=== PATIENT | female | born 1965 | race Caucasian/White ===

== ENCOUNTER 2020-03-14 06:28 | Outpatient (REF) | payer OTHER, SELFPAY ==
[2020-03-14 07:58] LABS: MANUAL DIFF FLAG NO
[2020-03-14 08:12] LABS: Basophils Absolute Auto 0.1 X10*3/uL (0.0-0.2); Basophils Percent Auto 0.7 % (0-2); Eosinophils Absolute Auto 0.2 X10*3/uL (0.0-0.4); Eosinophils Percent Auto 1.9 % (0-4); Hematocrit 39.1 % (37-47); Hemoglobin 12.5 g/dl (12.0-16.0); Imm Gran Abs Auto 0.02 X10*3/uL (0.00-0.03); Imm Gran Pct Auto 0.2 % (0.0-0.4); Lymphocytes Absolute Auto 2.9 X10*3/uL (1.2-4.9); Lymphocytes Percent Auto 22.2 % (20-40); Mean Corpuscular Hemoglobin 27.7 pg (27.0-33.0); Mean Corpuscular Volume 86.7 fL (80-98); Mean Platelet Volume 12.1 fL (9.4-12.3); Monocytes Absolute Auto 1.1 X10*3/uL (0.1-1.2); Monocytes Percent Auto 8.4 % (2-11); Neutrophils Absolute Auto 8.6 X10*3/uL (2.0-8.3); Neutrophils Percent Auto 66.6 % (45-73); Platelet Count 386 X10*3/uL (160-400); Red Blood Count 4.51 X10*6/uL (4.20-5.50); Red Cell Distribution Width 13.3 % (11.0-16.0); White Blood Count 12.8 X10*3/uL (4.8-10.8)
[2020-03-14 08:39] LABS: Estimated Average Glucose 237 mg/dL; Hemoglobin A1c % 9.9 %
[2020-03-14 08:57] LABS: Alanine Aminotransferase 14 U/L (0-31); Albumin Level 4.2 g/dL (3.5-5.0); Alkaline Phosphatase 96 U/L (39-117); Anion Gap 13 (12-20); Aspartate Amino Transferase 16 U/L (5-31); Bilirubin Total 0.3 mg/dL (0.0-1.0); Blood Urea Nitrogen 19 mg/dL (9-16); Calcium 9.3 mg/dL (8.4-10.2); Carbon Dioxide 27 mmol/L (22-29); Chloride 104 mmol/L (96-108); Cholesterol 196 mg/dL; Estimated Glomerular Filt Rate > 60; Glucose Fasting 128 mg/dL (60-99); HDL Cholesterol 44 mg/dL; LDL Cholesterol Calculated 127 mg/dl; Potassium 4.3 mmol/l (3.3-5.1); Sodium 140 mmol/L (135-145); Total Protein 7.3 g/dL (6.5-8.0); Triglycerides 127 mg/dL
[2020-03-14 09:09] LABS: Free T4 (Free Thyroxine) 1.73 ng/dL (0.71-1.85); Thyroid Stimulating Hormone 0.63 mIU/mL (0.32-4.0); Vitamin D 25-OH Total 29.6 ng/mL (>30)
== END 2020-03-14 06:29 | disposition home or self-care (01) ==
LOC: HO.LAB 06:28
PROVIDERS: PCP Internal Medicine; Referring Provider Nurse Practitioner Gerontology; Visit Provider Nurse Practitioner Family
DX: E11.42 Type 2 diabetes mellitus with diabetic polyneuropathy (principal); E89.0 Postprocedural hypothyroidism; E55.9 Vitamin D deficiency, unspecified
CPT/HCPCS: 36415; 80053; 80061; 82306; 83036; 84439; 84443; 85025

== ENCOUNTER 2020-03-15 06:45 | Outpatient (REF) | payer OTHER, SELFPAY ==
[2020-03-16 10:50] LABS: Creatinine Urine 37.86 mg/dL
== END 2020-03-15 06:46 | disposition home or self-care (01) ==
LOC: HO.LNP 06:45
PROVIDERS: Visit Provider Nurse Practitioner Gerontology
DX: E11.42 Type 2 diabetes mellitus with diabetic polyneuropathy (principal); E89.0 Postprocedural hypothyroidism; E55.9 Vitamin D deficiency, unspecified
CPT/HCPCS: 82043

== ENCOUNTER → 2020-03-17 15:29 | Outpatient (BNVA) | payer OTHER, SELFPAY | PROVIDERS: PCP Internal Medicine; Referring Provider Internal Medicine; Visit Provider Nurse Practitioner Gerontology | DX: Z76.89 Persons encountering health services in other specified circumstances (principal) ==

== ENCOUNTER 2020-03-29 16:19 | Outpatient (REF) | payer OTHER, SELFPAY | END 2020-03-29 16:20 | disposition home or self-care (01) | LOC: HO.LAB 16:19 | PROVIDERS: PCP Internal Medicine; Visit Provider Internal Medicine | DX: Z20.828 Contact with and (suspected) exposure to other viral communicable diseases (principal) | CPT/HCPCS: C9803; U0003 ==

== ENCOUNTER → 2020-04-22 14:27 | Outpatient (BNVA) | payer OTHER, SELFPAY | PROVIDERS: PCP Internal Medicine; Referring Provider Internal Medicine; Visit Provider Nurse Practitioner Gerontology | DX: E11.65 Type 2 diabetes mellitus with hyperglycemia (principal); E11.42 Type 2 diabetes mellitus with diabetic polyneuropathy; E78.5 Hyperlipidemia, unspecified; E89.0 Postprocedural hypothyroidism; E55.9 Vitamin D deficiency, unspecified | CPT/HCPCS: 82947; 99212 ==

== ENCOUNTER → 2020-04-29 15:03 | Outpatient (REF) | payer OTHER, SELFPAY ==
--- NOTE | 2020-04-29 15:01 | CA_ITS ---
Transthoracic Echocardiogram Patient (Last, First, Middle): Mayela Brennan T Gender: Female Date of : 1965 Age: 55 Procedure Date: 04/29/2020 Procedure Type: Transthoracic Echocardiogram Location: OP Height: 157.48 cm Weight: 75.75 kg BSA: 1.77 m2 Heart Rate: bpm BP: 120 / 60 mmHg Director Of Exhibits: ALFRED Referring MD: Chuckie New MD Symptoms: I25.10 ASCD Study Quality: Fair ECG Rhythm: Sinus Conclusions: - The left ventricular systolic function is mildly decreased. The visually estimated ejection fraction is between 45-50%. Findings Left Ventricle Normal left ventricular cavity size. There is normal left ventricular wall thickness. The left ventricular systolic function is mildly decreased. The visually estimated ejection fraction is between 45-50%. There is mild global hypokinesis. Evidence suggests grade I (mild) diastolic dysfunction. Basal to mid anterior septum looks mildly hypokinetic in some views. Right Ventricle Normal right ventricular cavity size and systolic function. Atria The left atrium is normal in size. The right atrium is normal in size. Aortic Valve There is a normal trileaflet aortic valve. There is no aortic valve stenosis. There is no aortic valve regurgitation. Mitral Valve The mitral valve appears normal. There is trace mitral valve regurgitation. There is no mitral valve stenosis. Pulmonic Valve The pulmonic valve was not well visualized. Tricuspid Valve Normal tricuspid valve structure. There is trace tricuspid valve regurgitation. The pulmonary artery systolic pressure is normal. Great Vessels The aortic annulus, sinuses of valsalva, and asc aorta are normal in size. Venous The inferior vena cava is normal in size and collapses greater than 50% with inspiration. Pericardium/Pleural There is no evidence of pericardial effusion. Prior Study Comparison No significant change compared to prior study dated: 11/10/2014. Measurements 2D Linear Measurements IVSd: 0.92 0.6-0.9/0.6-1.0 cm LVIDd: 4.16 3.9-5.3/4.2-5.9 cm LVIDd Index: 2.35 2.4-3.2/2.2-3.1 cm/m2 LVIDs: 3.10 2.0-3.6 cm LVPWd: 0.92 0.7-1.1 cm Ao Root: 3.30 2.1-3.5 cm LA Diam: 3.80 2.7-3.8/3.0-4.0 cm LAIDs Index: 2.15 1.5-2.3 cm/m2 LV Mass: 148.65 67-162/88-224 g LV Mass Index: 83.98 43-95/49-115 g/m2 LVOT Diam: 2.20 3.0+(-)1.3 cm 2D Systolic Function EF 4C: 46.60 >55% EF 2C: 58.20 >55% EF BiP: 50.20 >55% Mitral Valve MV Pk E: 0.77 MV PK A: 0.89 MV Decel Time: 261.00 E/A: 0.90 E'Lateral: 7.40 E'Medial: 4.46 E/E' Med: 17.20 E/E' Lat: 10.40 Aortic Valve AoV Pk Javier: 1.21 AoV Mn Javier: 0.80 AoV VTI: 0.23 AoV Pk Grad: 6.00 Aov Mn Grad: 3.00 COLTON Cont.VTI: 3.43 LVOT LVOT Pk Javier: 1.06 LVOT Mn Javier: 0.70 LVOT VTI: 0.20 LVOT Pk Grad: 4.00 LVOT Mn Grad: 2.00 LVOT Diam: 2.20 LVOT Area: 3.80 Diastolic Function MV Pk E: 0.77 MV Pk A: 0.89 E/A: 0.90 E'Medial: 4.46 E/E' Med: 17.20 E' Laterial: 7.40 E/E' Lat: 10.40 Tricuspid Valve TR Pk Javier: 2.20 TR Pk Grad: 19.00 RA Press: 3.00 RVSP: 22.00 Great Vessels Aorta Ao Root-2D: 3.30 2.0-3.7 cm Ao Asc: 3.00 2.1-3.4 cm Ao Arch: 2.60 Updated in Other Vendor System with Status of Final Chuckie New MD electronically signed on 05/02/2020 11:14:20 AM with status of Final
== END ==
LOC: HO.CARD 15:03
PROVIDERS: Visit Provider Internal Medicine
DX: I25.10 Atherosclerotic heart disease of native coronary artery without angina pectoris (principal); I10 Essential (primary) hypertension; Z95.5 Presence of coronary angioplasty implant and graft
CPT/HCPCS: 93306

== ENCOUNTER → 2020-05-04 15:21 | Outpatient (BNVA) | payer OTHER, SELFPAY | PROVIDERS: PCP Internal Medicine; Visit Provider Internal Medicine | DX: I25.10 Atherosclerotic heart disease of native coronary artery without angina pectoris (principal); E11.65 Type 2 diabetes mellitus with hyperglycemia; I10 Essential (primary) hypertension; E78.5 Hyperlipidemia, unspecified | CPT/HCPCS: 93005; 99212 ==

== ENCOUNTER 2020-05-26 13:14 | Outpatient (REF) | payer OTHER, SELFPAY | END 2020-05-26 13:15 | disposition home or self-care (01) | LOC: HO.LAB 13:14 | PROVIDERS: PCP Internal Medicine; Visit Provider Internal Medicine | DX: Z20.828 Contact with and (suspected) exposure to other viral communicable diseases (principal) | CPT/HCPCS: 36415; C9803; U0003 ==

== ENCOUNTER 2020-06-10 08:04 | Outpatient (REF) | payer OTHER, SELFPAY ==
[2020-06-10 08:57] LABS: MANUAL DIFF FLAG NO
[2020-06-10 09:01] LABS: Basophils Absolute Auto 0.1 X10*3/uL (0.0-0.2); Basophils Percent Auto 0.9 % (0-2); Eosinophils Absolute Auto 0.2 X10*3/uL (0.0-0.4); Eosinophils Percent Auto 2.5 % (0-4); Hematocrit 41.4 % (37-47); Imm Gran Abs Auto 0.02 X10*3/uL (0.00-0.03); Imm Gran Pct Auto 0.2 % (0.0-0.4); Lymphocytes Absolute Auto 2.6 X10*3/uL (1.2-4.9); Lymphocytes Percent Auto 29.1 % (20-40); Mean Corpuscular HGB Conc 31.4 g/dl (31.0-35.0); Mean Corpuscular Hemoglobin 27.7 pg (27.0-33.0); Mean Corpuscular Volume 88.1 fL (80-98); Mean Platelet Volume 11.7 fL (9.4-12.3); Monocytes Absolute Auto 0.7 X10*3/uL (0.1-1.2); Monocytes Percent Auto 7.9 % (2-11); Neutrophils Absolute Auto 5.3 X10*3/uL (2.0-8.3); Neutrophils Percent Auto 59.4 % (45-73); Platelet Count 377 X10*3/uL (160-400); Red Cell Distribution Width 13.8 % (11.0-16.0); White Blood Count 8.9 X10*3/uL (4.8-10.8)
[2020-06-10 09:05] LABS: Appearance Urine CLOUDY; Color Urine STRAW; Glucose Urine UA NEG (NEG); Leukocyte Esterase Urine 1+ (NEG); Nitrite Urine NEG (NEG); PH 6.5 (5.0-8.0); UACC Culture Trigger YES; Urine Blood NEG (NEG); Urine Ketones NEG (NEG); Urine Protein TRACE MG/DL (NEG-TRACE)
[2020-06-10 09:12] LABS: Bacteria Urine 4+ /LPF; RBC Urine 0 /HPF (0); Squamous Epithelial Cell Urine TRACE /LPF; WBC Urine 30-49 /HPF (0-4)
[2020-06-10 09:25] LABS: Anion Gap 10 (12-20); Blood Urea Nitrogen 18 mg/dL (9-16); Calcium 9.3 mg/dL (8.4-10.2); Carbon Dioxide 29 mmol/L (22-29); Chloride 104 mmol/L (96-108); Estimated Glomerular Filt Rate > 60; Potassium 4.1 mmol/l (3.3-5.1); Sodium 139 mmol/L (135-145)
[2020-06-10 09:44] LABS: Creatinine Urine 68.45 mg/dL; Protein/Creatinine Ratio, Ur 0.47 (<0.2); Total Protein Urine Random 32 mg/dL (<12)
== END 2020-06-10 08:05 | disposition home or self-care (01) ==
LOC: HO.LAB 08:04
PROVIDERS: PCP Internal Medicine; Visit Provider Internal Medicine Hypertension Specialist
DX: I10 Essential (primary) hypertension (principal); E11.9 Type 2 diabetes mellitus without complications; E11.21 Type 2 diabetes mellitus with diabetic nephropathy; N20.0 Calculus of kidney
CPT/HCPCS: 36415; 80051; 81001; 81003; 82310; 82565; 84156; 84520; 85025; 87086; 87088; 87186

== ENCOUNTER 2020-06-10 15:57 | Outpatient (REF) | payer OTHER, SELFPAY | END 2020-06-10 15:58 | disposition home or self-care (01) | LOC: HO.LAB 15:57 | PROVIDERS: Visit Provider Internal Medicine | DX: Z20.822 Contact with and (suspected) exposure to COVID-19 (principal) | CPT/HCPCS: 36415; C9803; U0003 ==

== ENCOUNTER → 2020-07-25 15:08 | Outpatient (BNVA) | payer OTHER, SELFPAY | PROVIDERS: PCP Internal Medicine; Visit Provider Nurse Practitioner Gerontology | DX: E11.65 Type 2 diabetes mellitus with hyperglycemia (principal); E11.42 Type 2 diabetes mellitus with diabetic polyneuropathy; E78.5 Hyperlipidemia, unspecified; E89.0 Postprocedural hypothyroidism; E55.9 Vitamin D deficiency, unspecified; Z79.4 Long term (current) use of insulin; Z71.3 Dietary counseling and surveillance | CPT/HCPCS: 82947; 99212 ==

== ENCOUNTER 2020-08-02 09:06 | Outpatient (REF) | payer OTHER, SELFPAY | END 2020-08-02 09:07 | disposition home or self-care (01) | LOC: HO.LAB 09:06 | PROVIDERS: Visit Provider Internal Medicine | DX: Z20.822 Contact with and (suspected) exposure to COVID-19 (principal) | CPT/HCPCS: 36415; C9803; U0003; U0005 ==

== ENCOUNTER 2020-08-24 17:54 | Inpatient (IN) | payer OTHER, SELFPAY ==
[2020-08-24] VITALS (9 sets, daily range): BP systolic 130–173; BP diastolic 69–79; PULSE 74–106; RESP 16–20; TEMP 36.6–38.7; O2SAT 95–99; BMI 30.7
--- NOTE | ~2020-08-24 | XR_ITS ---
EXAMINATION: XR CHEST CLINICAL INFORMATION: Covid 19. COMPARISON: Multiple priors, most recent chest radiograph dated 08/18/2018. TECHNIQUE: Frontal view of the chest was obtained. FINDINGS: Hypoinflation of the lungs with minimal patchy bibasilar airspace opacities, left greater than right. Findings may represent atelectasis versus early infiltrates. No pleural effusion or pneumothorax. Stable cardiomediastinal silhouette. No acute osseous abnormality. XR/XR chest 1V IMPRESSION: Hypoinflation of the lungs with minimal patchy bibasilar airspace opacities which could represent atelectasis versus early infiltrates.
[2020-08-24 18:37] LABS: MANUAL DIFF FLAG NO
[2020-08-24 18:43] LABS: Basophils Absolute Auto 0.1 X10*3/uL (0.0-0.2); Basophils Percent Auto 0.5 % (0-2); Eosinophils Percent Auto 0.2 % (0-4); Glucose Urine UA 100 MG/DL (NEG); Hematocrit 41.3 % (37-47); Hemoglobin 13.3 g/dl (12.0-16.0); Imm Gran Abs Auto 0.05 X10*3/uL (0.00-0.03); Imm Gran Pct Auto 0.4 % (0.0-0.4); Leukocyte Esterase Urine TRACE (NEG); Lymphocytes Absolute Auto 1.7 X10*3/uL (1.2-4.9); Lymphocytes Percent Auto 12.9 % (20-40); Mean Corpuscular HGB Conc 32.2 g/dl (31.0-35.0); Mean Corpuscular Hemoglobin 26.9 pg (27.0-33.0); Mean Corpuscular Volume 83.6 fL (80-98); Monocytes Absolute Auto 1.3 X10*3/uL (0.1-1.2); Monocytes Percent Auto 9.8 % (2-11); Neutrophils Absolute Auto 9.9 X10*3/uL (2.0-8.3); Neutrophils Percent Auto 76.2 % (45-73); Nitrite Urine NEG (NEG); Platelet Count 381 X10*3/uL (160-400); Red Blood Count 4.94 X10*6/uL (4.20-5.50); Red Cell Distribution Width 12.6 % (11.0-16.0); UACC Culture Trigger YES; Urine Blood NEG (NEG); Urine Ketones NEG (NEG); Urine Protein TRACE MG/DL (NEG-TRACE)
[2020-08-24 18:46] LABS: Appearance Urine CLEAR; Color Urine STRAW
--- NOTE | 2020-08-24 19:02 | ED.FEMALEGU ---
HPI - Female Genitourinary General Chief complaint: Urogenital-Female Stated complaint: Fever/Flank pain Time Seen by Provider: 08/24/20 18:55 Source: patient Mode of arrival: ambulatory Limitations: no limitations History of Present Illness HPI Narrative: 55-year-old female came in with fever, chills, urinary frequency, dysuria, right flank pain, foul urine smell, patient is prone to urinary tract infection and kidney infection. Patient also received her 1st dose of COVID-19 vaccination yesterday. Related Data Home Medications Medication Instructions Recorded Confirmed blood sugar diagnostic #10 ea 04/22/20 07/25/20 metoprolol succinate 50 mg 50 mg PO DAILY 04/22/20 07/25/20 tablet,extended release 24 hr gabapentin 300 mg capsule 300 mg PO BEDTIME PRN cap 05/04/20 07/25/20 infusion set for insulin pump #10 ea 06/13/20 07/25/20 Previous Rx's Medication Instructions Recorded lancets 28 gauge #600 ea 02/19/20 metformin 500 mg tablet,extended 1,000 mg PO BID #120 tab 03/11/20 release 24 hr cholecalciferol (vitamin D3) 1,250 1,250 mcg PO QWEEK #4 tab 03/17/20 mcg (50,000 unit) tablet aspirin 81 mg tablet,delayed 81 mg PO DAILY #30 tab 03/24/20 release Diabetic #1 ea 04/22/20 ezetimibe 10 mg tablet 10 mg PO DAILY #90 tab 04/22/20 rosuvastatin 40 mg tablet 40 mg PO DAILY #90 tab 04/22/20 cholecalciferol (vitamin D3) 50 50 mcg PO DAILY #30 cap 05/15/20 mcg (2,000 unit) capsule levothyroxine 137 mcg tablet 137 mcg PO DAILY #90 tab 07/05/20 blood sugar diagnostic #100 ea 07/21/20 blood-glucose meter #1 ea 07/21/20 lancets 28 gauge #100 ea 07/21/20 flash glucose sensor #1 ea 07/25/20 valsartan 80 1 tab PO DAILY #30 tab 08/09/20 mg-hydrochlorothiazide 12.5 mg tablet insulin aspart U-100 100 unit/mL See Rx Instructions SUBCUT DAILY 08/18/20 subcutaneous solution #50 ml Allergies Allergy/AdvReac Type Severity Reaction Status Date / Time dulaglutide [From FERNYITY] Allergy Unknown DIARRHEA Verified 07/25/20 15:38 AND VOMITTING liraglutide [From VICTOZA] Allergy Unknown DIARRHEA Verified 07/25/20 15:38 AND VOMITTING, vomiting and diahrrea Review of Systems Review of Systems: All other systems are reviewed and are negative Constitutional: Reports as per HPI and Reports no additional constitutional complaints Eyes: Reports as per HPI and Reports no additional eye complaints Reports system reviewed and no additional complaints, except as documented Cardiovascular: Reports as per HPI and Reports no additional cardiovascular complaints Respiratory: Reports as per HPI and Reports no additional respiratory complaints Gastrointestinal: Reports as per HPI and Reports no additional gastrointestinal complaints Genitourinary: Reports no additional female genitourinary complaints Musculoskeletal: Reports no additional musculoskeletal complaints Skin/Breast: Reports system reviewed and no additional complaints, except as docu Psychiatric: Reports no additional psychiatric complaints Endocrine: Reports no additional endocrine complaints Hematologic/Lymphatic: Reports no additional hematologic/lymphatic complaints Allergic/Immunologic: Reports no additional allergic/immunologic complaints Reports system reviewed and no additional complaints, except as documented and Reports Abnormal speech present [facility] Past Medical History Medical History Arthritis Carpal tunnel syndrome Coronary artery disease Depression Essential hypertension History of Clostridium difficile infection Hypercholesterolemia Kidney stone Left navicular fracture of foot Postsurgical hypothyroidism Thyroid nodule Type 2 diabetes mellitus with diabetic polyneuropathy Type 2 diabetes mellitus with hyperglycemia Vitamin B12 deficiency Vitamin D deficiency Surgical History History of renal stent Hx of section Hx of myomectomy Hx of thyroidectomy Hx of toe surgery Hx of tonsillectomy Family History Family History Father DM (diabetes mellitus) Hypertension High cholesterol Spina bifida Kidney stone Mother DM (diabetes mellitus) Hypertension High cholesterol CAD (coronary artery disease) Social History Social History Household Members: Children Smoking Status: Never smoker Advance Directives: No Advance Directives Information Provided: Yes Physical Exam Vital Signs: Vital Signs: Last Vital Signs Temp 99.6 F 08/24/20 20:00 Pulse 74 08/24/20 19:43 Resp 16 08/24/20 19:43 BP 144/74 H 08/24/20 19:43 Pulse Ox 99 08/24/20 19:43 Body Mass Index 30.7 Vital signs have been reviewed as appeared to be correct. Blood pressure is elevated. Heart rate is tachycardia. Respiration rate normal. Temperature: Afebrile. Oxygen saturation normal. Appearance: Alert. Oriented X3. No acute distress. Head: Normal external exam. Normocephalic. Atraumatic. No [place] signs noted. No raccoon eyes noted Eyes: PERRLA. EOMI. Conjunctiva and sclera normal. Eyelids normal. ENT: TM's Normal. Pharynx normal. Uvula midline. Moist mucous membranes. No trismus noted. No drooling noted. No muffled voice noted. Neck: Normal inspection. Neck supple. FROM. No adenopathy. Thyroid Normal. No meningeal signs. No neck mass noted. CVS: Normal heart rate and rhythm. Heart sound normal. No murmurs noted. Pulses normal throughout. Respiratory: No respiratory distress. Painless inspiration. Breath sounds normal. No wheezes/rales/rhonchi noted. Chest nontender. No accessory muscle usage noted or decreased air movement noted. Abdomen: Soft and nontender. Bowel sounds normal in all 4 quadrants. No distention noted. No organomegaly noted. No visible injury noted. Back: Right CVA tenderness. Full range of motion noted. Skin: Skin warm and dry. Normal skin color. Normal skin turgor. No rashes/lesions/lacerations noted. Extremities: No lower extremity edema. Extremities exhibit normal range of motion. Extremities nontender. Neuro: Oriented X 3. No motor deficit. No sensory deficit. Reflexes normal. Course Course Course Narrative: Assessment and plan. Right pyelonephritis with SIRS criteria. Patient received IV fluid/ceftriaxone. Admit the patient. MDM - Female Genitourinary Lab Data Attestation: I reviewed the patient's lab results. Result diagrams: 08/24/20 18:32 08/24/20 18:32 Labs: Lab Results 08/24/20 08/24/20 08/24/20 Range/Units 18:32 18:32 18:32 WBC 13.0 H (4.8-10.8) X10*3/uL RBC 4.94 (4.20-5.50) X10*6/uL Hgb 13.3 (12.0-16.0) g/dl Hct 41.3 (37-47) % MCV 83.6 (80-98) fL MCH 26.9 L (27.0-33.0) pg MCHC 32.2 (31.0-35.0) g/dl RDW 12.6 (11.0-16.0) % Plt Count 381 (160-400) X10*3/uL MPV 11.0 (9.4-12.3) fL Immature Gran % (Auto) 0.4 (0.0-0.4) % Neut % (Auto) 76.2 H (45-73) % Lymph % (Auto) 12.9 L (20-40) % [place] % (Auto) 9.8 (2-11) % Eos % (Auto) 0.2 (0-4) % Baso % (Auto) 0.5 (0-2) % Lymph # (Auto) 1.7 (1.2-4.9) X10*3/uL [place] # (Auto) 1.3 H (0.1-1.2) X10*3/uL Eos # (Auto) 0.0 (0.0-0.4) X10*3/uL Baso # (Auto) 0.1 (0.0-0.2) X10*3/uL Abs Immat Gran (auto) 0.05 H (0.00-0.03) X10*3/uL Absolute Neuts (auto) 9.9 H (2.0-8.3) X10*3/uL Absolute Nucleated RBC 0.000 (0.0-0.012) X10*3/uL Nucleated RBC % (auto) 0.0 (0.0-0.2) /100WBC Hold Blue Top SEE NOTE Sodium 134 L (135-145) mmol/L Potassium 3.9 (3.3-5.1) mmol/L Chloride 98 (96-108) mmol/L Carbon Dioxide 25 (22-29) mmol/L Anion Gap 15 (12-20) BUN 15 (9-16) mg/dL Creatinine 1.16 (0.5-1.4) mg/dL Estim Creat Clear Calc 51.7 Estimated GFR 48 Random Glucose 318 H (60-115) mg/dL Lactic Acid (0.5-2.0) mmol/L Calcium 9.1 (8.4-10.2) mg/dL Urine Color Urine Appearance Urine pH (5.0-8.0) Ur Specific [place] (1.005-1.025) Urine Protein (NEG-TRACE) MG/DL Urine Glucose (UA) (NEG) MG/DL Urine Ketones (NEG) MG/DL Urine Blood (NEG) Urine Nitrite (NEG) Ur Leukocyte Esterase (NEG) Urine RBC (0) /HPF Urine WBC (0-4) /HPF Ur Squamous Epith Cells /LPF Urine Bacteria /LPF 08/24/20 08/24/20 Range/Units 18:32 19:20 WBC (4.8-10.8) X10*3/uL RBC (4.20-5.50) X10*6/uL Hgb (12.0-16.0) g/dl Hct (37-47) % MCV (80-98) fL MCH (27.0-33.0) pg MCHC (31.0-35.0) g/dl RDW (11.0-16.0) % Plt Count (160-400) X10*3/uL MPV (9.4-12.3) fL Immature Gran % (Auto) (0.0-0.4) % Neut % (Auto) (45-73) % Lymph % (Auto) (20-40) % [place] % (Auto) (2-11) % Eos % (Auto) (0-4) % Baso % (Auto) (0-2) % Lymph # (Auto) (1.2-4.9) X10*3/uL [place] # (Auto) (0.1-1.2) X10*3/uL Eos # (Auto) (0.0-0.4) X10*3/uL Baso # (Auto) (0.0-0.2) X10*3/uL Abs Immat Gran (auto) (0.00-0.03) X10*3/uL Absolute Neuts (auto) (2.0-8.3) X10*3/uL Absolute Nucleated RBC (0.0-0.012) X10*3/uL Nucleated RBC % (auto) (0.0-0.2) /100WBC Hold Blue Top Sodium (135-145) mmol/L Potassium (3.3-5.1) mmol/L Chloride (96-108) mmol/L Carbon Dioxide (22-29) mmol/L Anion Gap (12-20) BUN (9-16) mg/dL Creatinine (0.5-1.4) mg/dL Estim Creat Clear Calc Estimated GFR Random Glucose (60-115) mg/dL Lactic Acid 1.3 (0.5-2.0) mmol/L Calcium (8.4-10.2) mg/dL Urine Color STRAW Urine Appearance CLEAR Urine pH 7.0 (5.0-8.0) Ur Specific [place] 1.020 (1.005-1.025) Urine Protein TRACE (NEG-TRACE) MG/DL Urine Glucose (UA) 100 H (NEG) MG/DL Urine Ketones NEG (NEG) MG/DL Urine Blood NEG (NEG) Urine Nitrite NEG (NEG) Ur Leukocyte Esterase TRACE H (NEG) Urine RBC 0 (0) /HPF Urine WBC 5-9 H (0-4) /HPF Ur Squamous Epith Cells NONE /LPF Urine Bacteria 3+ /LPF Discharge Plan Discharge Clinical Impression: Pyelonephritis Patient Disposition: Admitted As Inpatient Prescriptions: No Action (DME) lancets [FreeStyle Lancets] 28 gauge misc See Rx Instructions .ROUTE .MEDSUPPLY Qty: 600 RF: 3 metformin 500 mg tablet extended release 24 hr 1,000 mg PO BID Qty: 120 RF: 0 cholecalciferol (vitamin D3) 1,250 mcg (50,000 unit) tablet 1,250 mcg PO QWEEK Qty: 4 RF: 3 aspirin [Adult Low Dose Aspirin] 81 mg tablet,delayed release (DR/EC) 81 mg PO DAILY Qty: 30 RF: 6 cholecalciferol (vitamin D3) [Vitamin D3] 50 mcg (2,000 unit) capsule 50 mcg PO DAILY Qty: 30 RF: 6 levothyroxine 137 mcg tablet 137 mcg PO DAILY Qty: 90 RF: 1 (DME) blood-glucose meter [FreeStyle Lite Meter] Kit See Rx Instructions .ROUTE .MEDSUPPLY Qty: 1 RF: 0 (DME) FreeStyle Lite Strips Strip See Rx Instructions .ROUTE .MEDSUPPLY Qty: 100 RF: 11 (DME) lancets [FreeStyle Lancets] 28 gauge misc See Rx Instructions .ROUTE .MEDSUPPLY Qty: 100 RF: 11 valsartan-hydrochlorothiazide 80-12.5 mg tablet 1 tab PO DAILY Qty: 30 RF: 1 insulin aspart U-100 [Novolog U-100 Insulin aspart] 100 unit/mL solution See Rx Instructions subcut DAILY Qty: 50 RF: 2 (DME) infusion set for insulin pump Infusion Set See Rx Instructions .ROUTE .MEDSUPPLY Qty: 10 RF: 0 (DME) FreeStyle Radha 2 Sensor Kit See Rx Instructions .ROUTE .MEDSUPPLY Qty: 1 RF: 11 (DME) FreeStyle Precision Yossi Strips Strip See Rx Instructions ea .ROUTE QID Qty: 10 RF: 0 metoprolol succinate 50 mg tablet extended release 24 hr 50 mg PO DAILY RF: 0 rosuvastatin 40 mg tablet 40 mg PO DAILY Qty: 90 RF: 1 ezetimibe 10 mg tablet 10 mg PO DAILY Qty: 90 RF: 1 (DME) Diabetic Diabetic shoes and 2 inserts See Rx Instructions .Route .MEDSUPPLY Qty: 1 RF: 0 gabapentin 300 mg capsule 300 mg PO BEDTIME PRNRF: 0
[2020-08-24 19:03] LABS: Bacteria Urine 3+ /LPF; RBC Urine 0 /HPF (0)
[2020-08-24 19:06] LABS: Anion Gap 15 (12-20); Blood Urea Nitrogen 15 mg/dL (9-16); Calcium 9.1 mg/dL (8.4-10.2); Carbon Dioxide 25 mmol/L (22-29); Chloride 98 mmol/L (96-108); Creatinine Clr Calc Pharmacy 51.7; Estimated Glomerular Filt Rate 48; Glucose Random 318 mg/dL (60-115); Potassium 3.9 mmol/L (3.3-5.1); Sodium 134 mmol/L (135-145)
[2020-08-24] MEDS: 0.9 % Sodium Chloride 1,000 ML 999 ML IVCONT (19:37)
[2020-08-24] MEDS: cefTRIAXone sodium 1 GM in 0.9 % Sodium Chloride 50 ML IV (19:41)
[2020-08-24 19:53] LABS: Lactic Acid 1.3 mmol/L (0.5-2.0)
--- NOTE | 2020-08-24 22:05 | PM.IMHP ---
History of Present Illness Date of Service: 08/24/20 Chief Complaint: flank pain This is a 55-year-old female past medical history of diabetes, hypothyroidism, HLD, depression, who presents to the hospital with complaints of fever, chills, urinary frequency, dysuria, and right flank pain with a foul smelling urine for the past 1 day., no shortness of breath, no headache or change in vision, no canis, numbness or tingling. No cough, no low appetite, no loss of smell or sense of taste. Received her COVID-19 vaccine yesterday. On arrival to the ED hemodynamically stable with a temperature of a 100.9?, heart rate of 102, blood pressure 173/79, satting 98% on room air. Labs are significant for WBC count of 13, hemoglobin of 13.3, sodium of 134, potassium of 3.9, glucose in the 300s , UA that is positive for leukocyte Estrace, WBC, COVID-19 positive Past medical history as prolonged confirm with patient Review of Systems Review of Systems: Yes all other systems are reviewed and are negative [facility] Medical History Arthritis Carpal tunnel syndrome Coronary artery disease Depression Essential hypertension History of Clostridium difficile infection Hypercholesterolemia Kidney stone Left navicular fracture of foot Postsurgical hypothyroidism Thyroid nodule Type 2 diabetes mellitus with diabetic polyneuropathy Type 2 diabetes mellitus with hyperglycemia Vitamin B12 deficiency Vitamin D deficiency Family History Father DM (diabetes mellitus) Hypertension High cholesterol Spina bifida Kidney stone Mother DM (diabetes mellitus) Hypertension High cholesterol CAD (coronary artery disease) Surgical History History of renal stent Hx of section Hx of myomectomy Hx of thyroidectomy Hx of toe surgery Hx of tonsillectomy Social History Household Members: Children Household Members Other:: daughter Housing: House Do you presently have visiting nurse or other home services: No Smoking Status: Never smoker Use of substances other than those prescribed or required for medical reasons: No Have you been hit, kicked, punched, or otherwise hurt by someone within the past year? If so, by whom?: No Do you feel safe in your current relationship?: No Current Relationship Is there a partner from a previous relationship who is making you feel unsafe now?: No Are you made to feel afraid or neglected: No Advance Directives: No Advance Directives Information Provided: Yes Do you have thoughts of harming others: None Do you have a plan to hurt others: No Plan Recently lost weight without trying: No service: No Current occupational status: employed Meds Allergies Allergy/AdvReac Type Severity Reaction Status Date / Time dulaglutide [From TRULICITY] Allergy Unknown DIARRHEA Verified 07/25/20 15:38 AND VOMITTING liraglutide [From VICTOZA] Allergy Unknown DIARRHEA Verified 07/25/20 15:38 AND VOMITTING, vomiting and diahrrea Home Medications Medication Instructions Recorded Confirmed Last Taken Type metoprolol succinate 50 mg 50 mg PO DAILY 04/22/20 07/25/20 Unknown History tablet,extended release 24 hr gabapentin 300 mg capsule 300 mg PO BEDTIME cap 05/04/20 07/25/20 Unknown History Physical Exam Vital Signs and Narrative: Vital Signs: Last Vital Signs Temp 99.6 F 08/24/20 20:00 Pulse 74 08/24/20 19:43 Resp 16 08/24/20 19:43 BP 144/74 H 08/24/20 19:43 Pulse Ox 99 08/24/20 19:43 Body Mass Index 30.7 Const: General: cooperative and no acute distress Orientation/consciousness: patient oriented x3 Eyes: General: appearance normal, both eyes and all related structures Resp: Effort & Inspection: normal respiratory effort and able to speak in complete sentences Auscultation: clear to auscultation bilaterally Cardio: Rate: regular rate Rhythm: regular rhythm GI: Palpation (GI): Soft to palpation Auscultation: normal bowel sounds : Other: Right cva tenderness Skin: General skin exam: no rashes or lesions noted Neuro: General: patient oriented x3 Cognition (Neuro): normal cognition Extrem: General: Yes normal to inspection and Yes no pedal edema Results Labs CBC and Chem 7: 08/25/20 04:39 08/25/20 04:39 Labs: Laboratory Results - last 24 hr 08/24/20 08/24/20 08/24/20 18:32 18:32 18:32 MCV 83.6 MCH 26.9 L MCHC 32.2 RDW 12.6 Plt Count 381 MPV 11.0 Immature Gran % (Auto) 0.4 Neut % (Auto) 76.2 H Lymph % (Auto) 12.9 L [place] % (Auto) 9.8 Eos % (Auto) 0.2 Baso % (Auto) 0.5 Lymph # (Auto) 1.7 [place] # (Auto) 1.3 H Eos # (Auto) 0.0 Baso # (Auto) 0.1 Abs Immat Gran (auto) 0.05 H Absolute Neuts (auto) 9.9 H Absolute Nucleated RBC 0.000 Nucleated RBC % (auto) 0.0 Hold Blue Top SEE NOTE Anion Gap 15 Estim Creat Clear Calc 51.7 Estimated GFR 48 Random Glucose 318 H Lactic Acid Calcium 9.1 Urine Color Urine Appearance Urine pH Ur Specific [place] Urine Protein Urine Glucose (UA) Urine Ketones Urine Blood Urine Nitrite Ur Leukocyte Esterase Urine RBC Urine WBC Ur Squamous Epith Cells Urine Bacteria 08/24/20 08/24/20 18:32 19:20 MCV MCH MCHC RDW Plt Count MPV Immature Gran % (Auto) Neut % (Auto) Lymph % (Auto) [place] % (Auto) Eos % (Auto) Baso % (Auto) Lymph # (Auto) [place] # (Auto) Eos # (Auto) Baso # (Auto) Abs Immat Gran (auto) Absolute Neuts (auto) Absolute Nucleated RBC Nucleated RBC % (auto) Hold Blue Top Anion Gap Estim Creat Clear Calc Estimated GFR Random Glucose Lactic Acid 1.3 Calcium Urine Color STRAW Urine Appearance CLEAR Urine pH 7.0 Ur Specific [place] 1.020 Urine Protein TRACE Urine Glucose (UA) 100 H Urine Ketones NEG Urine Blood NEG Urine Nitrite NEG Ur Leukocyte Esterase TRACE H Urine RBC 0 Urine WBC 5-9 H Ur Squamous Epith Cells NONE Urine Bacteria 3+ Assessment and Plan (1) Sepsis: Status: Acute (2) Pyelonephritis: Status: Acute (3) COVID-19 virus infection: Problem details: 08/08/2020 Status: Acute (4) UTI (urinary tract infection): Status: Acute 55-year-old female with past medical history of diabetes, hypertension, HLD who presents to the hospital with complaints of right flank pain found to have UTI as well as pyelonephritis and sepsis # sepsis - secondary to urinary tract infection/pyelonephritis - meets sepsis criteria with fever, leukocytosis, and tachycardia - will start on IV antibiotics - follow cultures - lactic acid normal # pyelonephritis - has CVA tenderness, leukocytosis, febrile - was started on IV antibiotics - follow urine and blood cultures # UTI - positive UA - management as above # COVID-19 infection - received 1st dose of vaccine day prior to presentation - has no shortness of breath, respiratory symptoms - no hypoxia - will obtain chest x-ray to rule out any infiltrate - monitor respiratory status # diabetes - will start her on low-dose sliding scale insulin - hold antihyperglycemic orals - diabetic diet # hypertension - patient is slightly hypotensive - will hold antihypertensives at this time DVT prophylaxis: Lovenox
--- NOTE | 2020-08-24 22:45 | PC.NURSE ---
pt just disclosed that she has a insulin pump that just ran out so she disconnected it. poc being obtained at this time. pt skin pink warm and dry. no s/s of hypo or hyper glycemia. poc [phone]
[2020-08-24 22:50] LABS: Glucose, Whole Blood 319 mg/dL (60-115)
--- NOTE | 2020-08-24 22:50 | MHC.CM.PN ---
CM met with pt who appears to be uncomfortable and c/o chills. Pt has fever. Pt is 999 status. admitted,but no room assignment yet. Pt tells CM that she has no medical equipment at home, but then tells CM that she has an insulin pump, but she shut it off because it's empty and she has no insulin with her. This CM reported this to pt's nurse, Rosey, who was not aware pt had an insulin pump. Will alert the provider. 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 HCP/son Kole Dominguez ([phone]) and alternate is Janeth Dominguez-daughter ([phone]). HCP is on file. D/C plan is home without services. Family to provide transportation. CM to follow for d/c needs.
[2020-08-24] MEDS: Morphine Sulfate 2 MG/ML CARTRIDGE 1 MG IVPUSH (22:54)
[2020-08-25] VITALS (8 sets, daily range): BP systolic 97–141; BP diastolic 55–69; PULSE 69–98; RESP 16–20; TEMP 36.1–37.4; O2SAT 93–96; BMI 30.9
[2020-08-25] MEDS: Enoxaparin Sodium 40 MG/0.4 ML SYRINGE SUBCUT (00:44)
[2020-08-25] MEDS: Acetaminophen 325 MG TABLET 650 MG PO ×2 (00:44→21:27)
[2020-08-25 00:55] LABS: Influenza A PCR NEGATIVE (Negative); Influenza B PCR NEGATIVE (Negative); Resp Syncy Virus RNA Qual PCR NEGATIVE (Negative)
[2020-08-25 01:00] LABS: Glucose, Whole Blood 336 mg/dL (60-115)
--- NOTE | 2020-08-25 01:01 | PC.NURSE ---
hospitalist called and poc reported. 336. pt insulin pump remains off and is removed.
[2020-08-25 01:07] LABS: SARS COV2 PCR INHOUSE POSITIVE (Negative)
[2020-08-25] MEDS: Insulin Regular, Human 100 UNIT/ML 3 ML VIAL SUBCUT (02:02)
[2020-08-25] MEDS: 0.9 % Sodium Chloride Flush 3 ML SYRINGE IVFLUSH (03:14)
[2020-08-25] MEDS: 0.9 % Sodium Chloride 1,000 ML 100 ML IVCONT (03:14)
[2020-08-25 04:54] LABS: MANUAL DIFF FLAG NO
[2020-08-25 04:56] LABS: Basophils Absolute Auto 0.1 X10*3/uL (0.0-0.2); Basophils Percent Auto 0.8 % (0-2); Eosinophils Percent Auto 0.1 % (0-4); Hemoglobin 12.4 g/dl (12.0-16.0); Imm Gran Abs Auto 0.02 X10*3/uL (0.00-0.03); Imm Gran Pct Auto 0.2 % (0.0-0.4); Lymphocytes Absolute Auto 2.1 X10*3/uL (1.2-4.9); Lymphocytes Percent Auto 24.9 % (20-40); Mean Corpuscular HGB Conc 32.6 g/dl (31.0-35.0); Mean Corpuscular Hemoglobin 27.5 pg (27.0-33.0); Mean Corpuscular Volume 84.3 fL (80-98); Mean Platelet Volume 11.3 fL (9.4-12.3); Monocytes Absolute Auto 1.1 X10*3/uL (0.1-1.2); Monocytes Percent Auto 12.5 % (2-11); Neutrophils Absolute Auto 5.2 X10*3/uL (2.0-8.3); Neutrophils Percent Auto 61.5 % (45-73); Platelet Count 341 X10*3/uL (160-400); Red Blood Count 4.51 X10*6/uL (4.20-5.50); Red Cell Distribution Width 12.7 % (11.0-16.0); White Blood Count 8.4 X10*3/uL (4.8-10.8)
[2020-08-25 05:22] LABS: Anion Gap 12 (12-20); Blood Urea Nitrogen 18 mg/dL (9-16); Calcium 8.6 mg/dL (8.4-10.2); Carbon Dioxide 25 mmol/L (22-29); Chloride 103 mmol/L (96-108); Creatinine Clr Calc Pharmacy 53.3; Estimated Glomerular Filt Rate 50; Glucose Random 324 mg/dL (60-115); Potassium 3.7 mmol/L (3.3-5.1); Sodium 136 mmol/L (135-145)
[2020-08-25] MEDS: Lactated Ringers 500 ML 1000 ML IVCONT (06:43)
[2020-08-25 07:49] LABS: Glucose, Whole Blood 291 mg/dL (60-115)
[2020-08-25] MEDS: Insulin Lispro 100 UNIT/ML 3 ML VIAL SUBCUT ×4 (08:17→20:59)
[2020-08-25 11:20] LABS: Glucose, Whole Blood 368 mg/dL (60-115)
--- NOTE | 2020-08-25 15:22 | P.PNIM_ITS ---
Subjective Subjective Date of Service: 08/25/20 Interval History: Patient complaining of dysuria, foul odor to urine, denies fever chills no other acute issues overnight, noted to have elevated blood sugars, insulin pump has been discontinued. ROS General no headache, no dizziness, no fever chills. CVS no chest pain, no palpitation. Respiratory no cough ,no sob. Gastrointestinal no nausea, no vomiting, no abdominal pain Physical Exam Vital Signs: Vital Signs: Last Vital Signs Temp 98.7 F 08/25/20 15:04 Pulse 69 08/25/20 15:04 Resp 20 08/25/20 15:04 BP 134/65 08/25/20 15:04 Pulse Ox 96 08/25/20 15:04 Body Mass Index 30.9 General patient resting comfortably in no acute distress. Neck supple no JVD. CVS regular rate rhythm, Respiratory lungs clear to auscultation, no respiratory distress, no wheeze, no rhonchi. Gastrointestinal abdomen soft, nontender, bowel sounds audible, no guarding , no rigidity. Extremities no edema. Neuro nonfocal , speech clear. Skin no rash Objective Data Current Medications Generic Name Dose Route Start Last Admin Trade Name Freq PRN Reason Stop Dose Admin Acetaminophen 650 mg 08/24/20 23:53 Acetaminophen 325 Mg Tablet PO Q6H PRN Pain, Mild (Pain Scale 1-3) Docusate Sodium 100 mg 08/24/20 23:53 Docusate Sodium 100 Mg Capsule PO DAILY PRN Constipation Enoxaparin Sodium 40 mg 08/25/20 00:00 08/25/20 00:44 Enoxaparin Sodium 40 Mg/0.4 Ml Syringe SUBCUT 40 mg Q24H SHASHI Administration Sodium Chloride 1,000 mls @ 100 mls/hr 08/24/20 23:53 08/25/20 11:09 Ns IVCONT Not Given .Q10H SHASHI Ceftriaxone Sodium 1 gm/ 50 mls @ 100 mls/hr 08/25/20 18:00 Sodium Chloride IV Q24H SHASHI Insulin Human Lispro 0 unit 08/25/20 07:30 08/25/20 11:51 Insulin Lispro 100 Unit/Ml 3 Ml Vial SUBCUT 12 unit QIDACHS SHASHI Administration Protocol Ondansetron HCl 4 mg 08/24/20 23:53 Ondansetron Hcl 4 Mg/2 Ml Vial IVPUSH Q8H PRN Nausea and Vomiting Pharmacy Consult 1 each 08/25/20 09:20 Consult Rx Perform Med Rec MISCELLANE ONCE PRN Consult order Sodium Chloride 3 ml 08/25/20 00:00 08/25/20 07:21 0.9 % Sodium Chloride Flush 3 Ml Syringe IVFLUSH Not Given QSHIFT SHASHI Labs CBC & Chem 7: 08/25/20 04:39 08/25/20 04:39 Microbiology Microbiology Results: Microbiology 08/24/20 18:47 Urine clean catch - Clean Catch Midstream Urine Culture - Preliminary Gram negative flavia Assessment and Plan (1) Sepsis: Status: Acute (2) Pyelonephritis: Status: Acute (3) COVID-19 virus infection: Problem details: 08/08/2020 Status: Acute Assessment and Plan: 55-year-old female with past medical history of diabetes, hypertension, HLD who presents to the hospital with complaints of right flank pain found to have UTI as well as pyelonephritis and sepsis # sepsis secondary to urinary tract infection/pyelonephritis - meets sepsis criteria with fever, leukocytosis, and tachycardia, normal lactic acid CVA tenderness resolved continue IV ceftriaxone urine culture growing Gram- negative flavia blood cultures are pending, continue supportive care DC IV fluid # COVID-19 infection - received 1st dose of vaccine day prior to presentation - has no shortness of breath, respiratory symptoms, no hypoxia, chest x-ray showed hypoinflation of lungs with minimal patchy by basilar airspace opacities, encourage incentive spirometry And frequent position change # diabetes - elevated blood sugars, placed on diabetic diet and adjust insulin sliding scale, at home uses insulin # hypertension had soft blood pressure on arrival now blood pressure improved continue to hold antihypertensive medication DC IV fluid DVT prophylaxis: Lovenox
[2020-08-25 16:27] LABS: Glucose, Whole Blood 289 mg/dL (60-115)
[2020-08-25] MEDS: cefTRIAXone sodium 1 GM in 0.9 % Sodium Chloride 50 ML IV (17:03)
--- NOTE | 2020-08-25 18:18 | PC.NURSE ---
Patient up ab [place], independent. Fluids d/c'd. Patient denies pain. Modified iss per hospitalist due to incr blood glucose. Diabetic diet in place. Patient very aware of her diabetic regimen, states that she counts her carbs, checks her sugar, then calculates how much insulin to self-administer. Patient cautious with high sugar drinks/foods. Patient denies any resp sx's related to pos COVID test.
[2020-08-25 20:32] LABS: Glucose, Whole Blood 293 mg/dL (60-115)
[2020-08-26] MEDS: 0.9 % Sodium Chloride Flush 3 ML SYRINGE IVFLUSH ×2 (00:10→08:12)
[2020-08-26] MEDS: Enoxaparin Sodium 40 MG/0.4 ML SYRINGE SUBCUT (00:46)
[2020-08-26 02:57] VITALS: BP 136/70; PULSE 72; RESP 18; TEMP 36.3; O2SAT 96
[2020-08-26] MEDS: Levothyroxine Sodium 112 MCG TABLET PO (06:04)
[2020-08-26] MEDS: Levothyroxine Sodium 25 MCG TABLET PO (06:04)
[2020-08-26 07:49] LABS: Glucose, Whole Blood 265 mg/dL (60-115)
[2020-08-26 07:50] VITALS: BP 140/69; PULSE 72; RESP 20; TEMP 36.8; O2SAT 92
[2020-08-26] MEDS: Valsartan 80 MG TABLET PO (08:11)
[2020-08-26] MEDS: hydroCHLOROthiazide 12.5 MG TABLET PO (08:11)
[2020-08-26] MEDS: Cholecalciferol (Vitamin D3) 25 MCG TABLET 50 MCG PO (08:11)
[2020-08-26] MEDS: Aspirin Enteric Coated 81 MG TABLET.DR PO (08:12)
[2020-08-26] MEDS: Metoprolol Succinate ER 50 MG TAB.ER.24H PO (08:12)
[2020-08-26] MEDS: Insulin Lispro 100 UNIT/ML 3 ML VIAL SUBCUT (08:12)
[2020-08-26] MEDS: Acetaminophen 325 MG TABLET 650 MG PO (08:23)
--- NOTE | 2020-08-26 10:21 | PM.DS ---
DS: Providers Provider Date of Service: 08/26/20 Date of admission: 08/24/20 22:04 Primary care physician: Dany Rubio MD DS: Diagnosis Discharge Diagnosis (1) Sepsis: Status: Acute (2) Pyelonephritis: Status: Acute (3) COVID-19 virus infection: Status: Acute Problem details: 08/08/2020 DS: Medications Discharge Medications Home Medications: Home Medications Medication Instructions Recorded Confirmed metoprolol succinate 50 mg 50 mg PO DAILY 04/22/20 08/25/20 tablet,extended release 24 hr gabapentin 300 mg capsule 300 mg PO BEDTIME PRN cap 05/04/20 08/25/20 cholecalciferol (vitamin D3) 1,250 mcg PO WE 08/25/20 08/25/20 ezetimibe 10 mg PO BEDTIME 08/25/20 08/25/20 rosuvastatin 40 mg PO BEDTIME 08/25/20 08/25/20 Previous Rx's Medication Instructions Recorded metformin 500 mg tablet,extended 1,000 mg PO BID #120 tab 03/11/20 release 24 hr aspirin 81 mg tablet,delayed 81 mg PO DAILY #30 tab 03/24/20 release cholecalciferol (vitamin D3) 50 50 mcg PO DAILY #30 cap 05/15/20 mcg (2,000 unit) capsule levothyroxine 137 mcg tablet 137 mcg PO DAILY #90 tab 07/05/20 valsartan 80 1 tab PO DAILY #30 tab 08/09/20 mg-hydrochlorothiazide 12.5 mg tablet insulin aspart U-100 100 unit/mL See Rx Instructions SUBCUT DAILY 08/18/20 subcutaneous solution #50 ml DS: Summary Hospital Course Hospital Course: History of presenting illness Chief Complaint: flank pain This is a 55-year-old female past medical history of diabetes, hypothyroidism, HLD, depression, who presents to the hospital with complaints of fever, chills, urinary frequency, dysuria, and right flank pain with a foul smelling urine for the past 1 day., no shortness of breath, no headache or change in vision, no canis, numbness or tingling. No cough, no low appetite, no loss of smell or sense of taste. Received her COVID-19 vaccine yesterday. On arrival to the ED hemodynamically stable with a temperature of a 100.9?, heart rate of 102, blood pressure 173/79, satting 98% on room air. Labs are significant for WBC count of 13, hemoglobin of 13.3, sodium of 134, potassium of 3.9, glucose in the 300s , UA that is positive for leukocyte Estrace, WBC, COVID-19 positive Hospital course 55-year-old female with past medical history of diabetes, hypertension, HLD who presents to the hospital with complaints of right flank pain found to have pyelonephritis and sepsis # sepsis secondary to acute pyelonephritis on admission patient had fever leukocytosis and tachycardia therefore met sepsis criteria, patient treated with IV ceftriaxone urine culture grew E coli ESBL negative blood cultures are negative since all symptoms of sepsis have resolved and patient feeling better with no urinary symptoms no fever chills she is being discharged home on by mouth Ceftin. # COVID-19 infection recently diagnosed to have COVID-19 patient chest x-ray showed hypoinflation of lungs, she has no hypoxia # diabetes patient noted to have elevated blood sugars she has been recommended diabetic diet and to resume insulin pump. # hypertension had soft blood pressures during hospitalization therefore blood pressure medications were held blood pressure is now trending up therefore recommend to resume home medication Time Spent with Patient Time attestation: Total time spent providing and/or coordinating discharge services: Discharge coordination time: Greater than 30 minutes Physical Exam Vital Signs: Vital Signs: Last Vital Signs Temp 98.2 F 08/26/20 07:50 Pulse 72 08/26/20 07:50 Resp 20 08/26/20 07:50 BP 140/69 H 08/26/20 07:50 Pulse Ox 92 08/26/20 07:50 Body Mass Index 30.9 General patient resting comfortably in no acute distress. Neck supple no JVD. CVS regular rate rhythm, Respiratory lungs clear to auscultation, no respiratory distress, no wheeze, no rhonchi. Gastrointestinal abdomen soft, nontender, bowel sounds audible, no guarding , no rigidity. No CVA tenderness Extremities no edema. Neuro nonfocal , speech clear. Skin no rash DS: Data Data Completed and Pending Labs on day of discharge: Laboratory Results - last 24 hr 08/25/20 08/25/20 08/25/20 11:12 16:19 20:19 POC Glucose 368 H* 289 H 293 H 08/26/20 07:45 POC Glucose 265 H Preliminary micro results at discharge 08/24/20 19:29 Blood Culture - Preliminary Blood - Venous No growth after 24 hours. 08/24/20 19:21 Blood Culture - Preliminary Blood - Venous No growth after 24 hours. Discharge Plan Discharge Patient Disposition: Home, Self-Care Referrals: Ramiro,Dany Grant MD [Primary Care Provider] - Discharge Medications: New cefuroxime axetil 500 mg tablet 500 mg PO Q12H 6 Days Qty: 12 RF: 0 Continued metformin 500 mg tablet extended release 24 hr 1,000 mg PO BID Qty: 120 RF: 0 aspirin [Adult Low Dose Aspirin] 81 mg tablet,delayed release (DR/EC) 81 mg PO DAILY Qty: 30 RF: 6 cholecalciferol (vitamin D3) [Vitamin D3] 50 mcg (2,000 unit) capsule 50 mcg PO DAILY Qty: 30 RF: 6 levothyroxine 137 mcg tablet 137 mcg PO DAILY Qty: 90 RF: 1 valsartan-hydrochlorothiazide 80-12.5 mg tablet 1 tab PO DAILY Qty: 30 RF: 1 insulin aspart U-100 [Novolog U-100 Insulin aspart] 100 unit/mL solution See Rx Instructions subcut DAILY Qty: 50 RF: 2 ezetimibe 10 mg tablet 10 mg PO BEDTIME RF: 0 rosuvastatin 40 mg tablet 40 mg PO BEDTIME RF: 0 cholecalciferol (vitamin D3) 1,250 mcg (50,000 unit) tablet 1,250 mcg PO WE RF: 0 metoprolol succinate 50 mg tablet extended release 24 hr 50 mg PO DAILY RF: 0 gabapentin 300 mg capsule 300 mg PO BEDTIME PRN (Reason: Pain) RF: 0 Discharge Orders: Discharge Order (Routine); Ordered 08/26/20 Ordered By: Db Medina Diet: diabetic diet and low fat, low cholesterol Activity on Discharge: As tolerated Stand Alone Forms: Patient Portal Discharge page Care Plan Goals: As above Health Concerns: Sepsis/pyelonephritis take Ceftin for 5 more days drink plenty of fluid / rest, return to check with recurrent fevers lightheadedness /dizziness. Plan of Treatment: Follow-up with primary care physician in 1 week Assessment: See discharge summary
--- NOTE | 2020-08-26 10:45 | MHC.CM.PN ---
Patient will be discharged home no services. Family will provide transport.
== END 2020-08-26 14:38 | disposition home or self-care (01) | DRG 720 ==
LOC: HO.ED 21:39 → HO.EDOVER 22:20 → HO.IMC 08-25 01:14
PROVIDERS: Admitting Provider Internal Medicine; Emergency Provider Emergency Medicine; PCP Internal Medicine; Visit Provider Hospitalist
DX: A41.9 Sepsis, unspecified organism (principal); U07.1 COVID-19; E11.42 Type 2 diabetes mellitus with diabetic polyneuropathy; E03.9 Hypothyroidism, unspecified; N12 Tubulo-interstitial nephritis, not specified as acute or chronic; Z96.41 Presence of insulin pump (external) (internal); Z79.4 Long term (current) use of insulin; Z79.82 Long term (current) use of aspirin; Z79.890 Hormone replacement therapy; Z79.899 Other long term (current) drug therapy
CPT/HCPCS: 0241U; 36415; 71045; 80048; 81001; 81003; 82947; 83605; 85025; 87040; 87086; 87088; 87186; 96365; 99285; J0696; J1650; J2270

== ENCOUNTER → 2020-09-26 15:10 | Outpatient (BNVA) | payer OTHER, SELFPAY | PROVIDERS: PCP Internal Medicine; Visit Provider Nurse Practitioner Gerontology | DX: E11.65 Type 2 diabetes mellitus with hyperglycemia (principal); E11.42 Type 2 diabetes mellitus with diabetic polyneuropathy; E89.0 Postprocedural hypothyroidism; E55.9 Vitamin D deficiency, unspecified | CPT/HCPCS: 82947; 99212 ==

== ENCOUNTER 2020-09-27 16:06 | Outpatient (REF) | payer OTHER, SELFPAY ==
--- NOTE | ~2020-09-27 | MM_ITS ---
EXAMINATION: MM SCREENING DIGITAL BREAST TOMOSYNTHESIS, BILATERAL CLINICAL INFORMATION: Screening. Asymptomatic. The lifetime risk of breast cancer based on the Tyrer-Cuzick Model is 7%. COMPARISON: Outside mammography: 07/10/2018, 07/09/2017, 07/03/2016 ([facility]). TECHNIQUE: Digital breast tomosynthesis is performed in both the craniocaudal and mediolateral oblique views along with computer-aided detection (CAD). Synthesized 2D images are generated from the tomosynthesis. FINDINGS: There are scattered areas of fibroglandular density (ACR BI-RADS breast composition Category b). There are no significant masses, abnormal calcifications, or other abnormalities. Parenchymal pattern is similar to prior exams. No developing density. Left axillary node similar. No significant changes from prior outside exams. MM/MM tomosynthesis screening BI IMPRESSION: No mammographic evidence of malignancy. ASSESSMENT: BI-RADS 1: Negative RECOMMENDATION: Routine annual mammography screening. This patient's information was entered into a reminder system with a target due date for their next mammogram.
== END 2020-09-27 16:07 | disposition home or self-care (01) ==
LOC: HO.MAMMO 16:06
PROVIDERS: PCP Internal Medicine; Visit Provider Internal Medicine
DX: Z12.31 Encounter for screening mammogram for malignant neoplasm of breast (principal)
CPT/HCPCS: 77063; 77067

== ENCOUNTER 2020-10-03 21:17 | Emergency (ER) | payer OTHER, SELFPAY ==
[2020-10-03 22:12] VITALS: BP 161/81; PULSE 70; RESP 18; TEMP 37.2; O2SAT 95; BMI 68.5
[2020-10-04] MEDS: Lidocaine HCl 2 % MPF 5 ML VIAL INFILTRATI (00:15)
--- NOTE | 2020-10-04 00:36 | ED.EXTPRO ---
HPI - Extremity Problem General Chief complaint: Extremity Injury, Upper Stated complaint: finger infection Time Seen by Provider: 10/03/20 23:11 Source: patient Mode of arrival: ambulatory Limitations: no limitations History of Present Illness HPI Narrative: Patient comes emergency room complaining a splinter embedded underneath her middle finger of the left hand. Patient states he tried pulling it out but was unsuccessful the splint has been there for 3 days, the finger is becoming red, swollen, and has been expressing pus. Patient denies fever chills. Related Data Home Medications Medication Instructions Recorded Confirmed gabapentin 300 mg capsule 300 mg PO BEDTIME PRN cap 05/04/20 09/26/20 ezetimibe 10 mg PO BEDTIME 08/25/20 09/26/20 rosuvastatin 40 mg PO BEDTIME 08/25/20 09/26/20 blood sugar diagnostic #10 ea 09/26/20 09/26/20 ergocalciferol (vitamin D2) 1,250 1,250 mcg PO QWEEK 09/26/20 09/26/20 mcg (50,000 unit) capsule flash glucose sensor #1 ea 09/26/20 09/26/20 Previous Rx's Medication Instructions Recorded metformin 500 mg tablet,extended 1,000 mg PO BID #120 tab 03/11/20 release 24 hr aspirin 81 mg tablet,delayed 81 mg PO DAILY #30 tab 03/24/20 release cholecalciferol (vitamin D3) 50 50 mcg PO DAILY #30 cap 05/15/20 mcg (2,000 unit) capsule levothyroxine 137 mcg tablet 137 mcg PO DAILY #90 tab 07/05/20 valsartan 80 1 tab PO DAILY #30 tab 08/09/20 mg-hydrochlorothiazide 12.5 mg tablet insulin aspart U-100 100 unit/mL See Rx Instructions SUBCUT DAILY 08/18/20 subcutaneous solution #50 ml metoprolol succinate 50 mg 50 mg PO DAILY #90 tab 09/09/20 tablet,extended release 24 hr cephalexin [Keflex] 750 mg PO BID #13 cap 10/04/20 doxycycline hyclate 100 mg PO BID #13 tab 10/04/20 Allergies Allergy/AdvReac Type Severity Reaction Status Date / Time dulaglutide [From TRULICITY] Allergy Unknown DIARRHEA Verified 10/03/20 22:12 AND VOMITTING liraglutide [From VICTOZA] Allergy Unknown DIARRHEA Verified 10/03/20 22:12 AND VOMITTING, vomiting and diahrrea Review of Systems Review of Systems: Constitutional : No Weight loss, No Fever, No Chills, No Night Sweats, No Fatigue, No Malaise ENT/Mouth : No Hearing loss, No Ear Pain, No Nasal Congestion, No Sinus Pain, No Hoarseness, No sore throat, No Rhinorrhea, No Swallowing Difficulty Eyes: No Eye Pain, No Swelling, No Redness, No Foreign Body, No Discharge, No Vision Changes Cardiovascular : No Chest Pain, No SOB, No Dyspnea on Exertion, No Orthopnea, No Edema, No Palpitations Respiratory : No Cough, No Sputum, No Wheezing, No Smoke Exposure, No Dyspnea Gastrointestinal : No Nausea, No Vomiting, No Diarrhea, No Constipation, No abdominal Pain, No Hematochezia, No Melena Genitourinary : no irregular bleeding, No Dysuria, No Urinary Frequency, No Hematuria, No Urinary Incontinence, No Urgency, No Flank Pain, No Urinary Flow Changes, No Hesitancy Musculoskeletal : No joint pain, No Myalgias, No Joint Swelling Skin : Complaining of a splinter under the fingernail on the middle finger left hand, and mild pus drainage Neuro : No Weakness, No Numbness, No Paresthesias, No Loss of Consciousness, No Dizziness, No Headache Psych : No Anxiety/Panic, No Depression, No SI/HI/AH/VH, No Social Issues, Heme/Lymph: No Bruising, No Bleeding,No Lymphadenopathy Endocrine : No Polyuria, No Polydipsia, No Temperature Intolerance PMFSH Past Medical History Medical History Arthritis Carpal tunnel syndrome Coronary artery disease Depression Essential hypertension History of Clostridium difficile infection Hypercholesterolemia Kidney stone Left navicular fracture of foot Postsurgical hypothyroidism Thyroid nodule Type 2 diabetes mellitus with diabetic polyneuropathy Type 2 diabetes mellitus with hyperglycemia Vitamin B12 deficiency Vitamin D deficiency Surgical History History of renal stent Hx of section Hx of myomectomy Hx of thyroidectomy Hx of toe surgery Hx of tonsillectomy Family History Family History Father DM (diabetes mellitus) Hypertension High cholesterol Spina bifida Kidney stone Mother DM (diabetes mellitus) Hypertension High cholesterol CAD (coronary artery disease) Social History Social History (Updated 09/26/20 @ 15:33 by Ilana Schneider MA) Household Members: Children Household Members Other:: daughter Housing: House Alcohol intake: never Smoking Status: Never smoker Smoked in Last 30 Days: No Use of substances other than those prescribed or required for medical reasons: No Any prior treatment program specific to substance use: No Advance Directives: No Advance Directives Information Provided: No Patient : No service: No Current occupational status: employed Physical Exam Vital Signs: Vital Signs: Last Vital Signs Temp 98.9 F 10/03/20 22:12 Pulse 70 10/03/20 22:12 Resp 18 10/03/20 22:12 BP 161/81 H 10/03/20 22:12 Pulse Ox 95 10/03/20 22:12 Body Mass Index 68.5 Appearance: Alert. Oriented X3. No acute distress. Eyes: Pupils equal, round and reactive to light. ENT: Pharynx normal. Neck: Normal inspection. Neck supple. No lymph nodes noted. No crepitus CVS: Normal heart rate and rhythm. Pulses normal. Normal S1 and S2 Respiratory: No respiratory distress. Breath sounds normal. No Wheezing. No rales Abdomen: Soft and nontender. No rigidity. No distention. good BS x4 Skin: Skin warm and dry. Normal skin color. Normal skin turgor. Middle finger of the left hand is erythematous at the distal end, warm, tender to touch, with direct lighting a splinter is visualized Extremities: No lower extremity edema. No lower extremity edema. No Lacerations. No Rash Neuro: Oriented X 3. No motor deficit. No sensory deficit. Moving all extermities. No slurred speech. Course Course Course Narrative: Patient received a digital block, a splinter was removed from the patient's middle finger, approximately 8 mm long and fairly deep. Scant amount of pus was visualized and drained. Patient was given the 1st dose of p.o. antibiotics. Patient has active follow-up with the primary care physician. Discharge Plan Discharge Clinical Impression: Splinter in skin Cellulitis Qualifiers: Site of cellulitis: extremity Site of cellulitis of extremity: upper extremity Laterality: left Qualified Code(s): L03.114 - Cellulitis of left upper limb Patient Disposition: Home, Self-Care Instructions: Cellulitis (ED) Additional Instructions: Please follow-up with your primary care physician tomorrow. If you have any worsening or new symptoms, please return to the emergency room or call 911 Prescriptions: New doxycycline hyclate 100 mg tablet 100 mg PO BID Qty: 13 RF: 0 cephalexin [Keflex] 750 mg capsule 750 mg PO BID Qty: 13 RF: 0 No Action metformin 500 mg tablet extended release 24 hr 1,000 mg PO BID Qty: 120 RF: 0 aspirin [Adult Low Dose Aspirin] 81 mg tablet,delayed release (DR/EC) 81 mg PO DAILY Qty: 30 RF: 6 cholecalciferol (vitamin D3) [Vitamin D3] 50 mcg (2,000 unit) capsule 50 mcg PO DAILY Qty: 30 RF: 6 levothyroxine 137 mcg tablet 137 mcg PO DAILY Qty: 90 RF: 1 valsartan-hydrochlorothiazide 80-12.5 mg tablet 1 tab PO DAILY Qty: 30 RF: 1 insulin aspart U-100 [Novolog U-100 Insulin aspart] 100 unit/mL solution See Rx Instructions subcut DAILY Qty: 50 RF: 2 metoprolol succinate 50 mg tablet extended release 24 hr 50 mg PO DAILY Qty: 90 RF: 2 ezetimibe 10 mg tablet 10 mg PO BEDTIME RF: 0 rosuvastatin 40 mg tablet 40 mg PO BEDTIME RF: 0 (DME) FreeStyle Lite Strips Strip See Rx Instructions strip .ROUTE .MEDSUPPLY Qty: 10 RF: 0 (DME) FreeStyle Radha 14 Day Sensor Kit See Rx Instructions ea topical DIRECTED Qty: 1 RF: 0 ergocalciferol (vitamin D2) 1,250 mcg (50,000 unit) capsule 1,250 mcg PO QWEEK RF: 0 gabapentin 300 mg capsule 300 mg PO BEDTIME PRN (Reason: Pain) RF: 0
[2020-10-04] MEDS: cephALEXin 250 MG CAPSULE PO (00:48)
== END 2020-10-04 00:57 | disposition home or self-care (01) ==
PROVIDERS: Emergency Provider Emergency Medicine; PCP Internal Medicine
DX: S61.243A Puncture wound with foreign body of left middle finger without damage to nail, initial encounter (principal); W45.8XXA Other foreign body or object entering through skin, initial encounter; L03.114 Cellulitis of left upper limb; I10 Essential (primary) hypertension; E11.9 Type 2 diabetes mellitus without complications; E78.00 Pure hypercholesterolemia, unspecified; Y93.9 Activity, unspecified; Y92.9 Unspecified place or not applicable; Y99.9 Unspecified external cause status; Z79.4 Long term (current) use of insulin; Z79.02 Long term (current) use of antithrombotics/antiplatelets; Z79.899 Other long term (current) drug therapy
CPT/HCPCS: 64450; 99284

== ENCOUNTER 2020-10-29 08:57 | Outpatient (REF) | payer OTHER, SELFPAY ==
[2020-10-29 10:21] LABS: Cholesterol 113 mg/dL; HDL Cholesterol 47 mg/dL; LDL Cholesterol Calculated 51 mg/dl; Triglycerides 75 mg/dL
[2020-10-29 10:45] LABS: Free T4 (Free Thyroxine) 1.36 ng/dL (0.71-1.85); Thyroid Stimulating Hormone 0.26 uIU/mL (0.32-4.0); Vitamin D 25-OH Total 28.9 ng/mL (>30)
[2020-10-29 11:04] LABS: Creatinine Urine 58.99 mg/dL; Microalbum/Creatinine Ratio Ur 252.5 ug/mg cr
[2020-10-30 09:47] LABS: LDL Cholesterol Direct 47 mg/dL (<100)
== END 2020-10-29 08:58 | disposition home or self-care (01) ==
LOC: HO.LAB 08:57
PROVIDERS: PCP Internal Medicine; Visit Provider Nurse Practitioner Gerontology
DX: E11.65 Type 2 diabetes mellitus with hyperglycemia (principal); E89.0 Postprocedural hypothyroidism; E55.9 Vitamin D deficiency, unspecified
CPT/HCPCS: 36415; 80061; 82043; 82306; 83721; 84439; 84443

== ENCOUNTER → 2020-11-02 15:02 | Outpatient (BNVA) | payer OTHER, SELFPAY | PROVIDERS: PCP Internal Medicine; Visit Provider Internal Medicine | DX: I25.10 Atherosclerotic heart disease of native coronary artery without angina pectoris (principal); E11.65 Type 2 diabetes mellitus with hyperglycemia; I10 Essential (primary) hypertension | CPT/HCPCS: 99212 ==

== ENCOUNTER → 2020-11-23 14:24 | Outpatient (BNVA) | payer OTHER, SELFPAY | PROVIDERS: PCP Internal Medicine; Visit Provider Obstetrics & Gynecology ==

== ENCOUNTER 2021-02-14 07:58 | Emergency (ER) | payer OTHER, SELFPAY ==
--- NOTE | ~2021-02-14 | CT_ITS ---
EXAMINATION: CT ABDOMEN AND PELVIS WITHOUT CONTRAST CLINICAL INFORMATION: Left flank pain. History of kidney stones. COMPARISON: Previous CT of the abdomen and pelvis May 2019 TECHNIQUE: Multidetector volumetric imaging was performed from the superior aspect of the liver through the pubic symphysis. Sagittal and coronal reformatted images were obtained on the technologist's workstation. This CT examination was performed using dose optimization techniques as appropriate, variously including the following: *Automated exposure control *Adjustment of mA and/or kV according to patient size (this includes techniques or standardized protocols for targeted exams where dose is matched to indication/reason for exam; i.e. extremities or head) *Use of iterative reconstruction technique DLP: 595 mGy-cm FINDINGS: LUNG BASES: The visualized lung bases are unremarkable. LIVER, GALLBLADDER, AND BILIARY TREE: The liver is normal in size, shape, and attenuation. No focal hepatic lesion or biliary ductal dilatation is present. There is a small calcification in the right lobe of the liver. The gallbladder is unremarkable with no evidence of radiopaque gallstones, gallbladder wall thickening, or obvious pericholecystic inflammatory changes. PANCREAS: Unremarkable. SPLEEN: Unremarkable. ADRENAL GLANDS: Unremarkable. KIDNEYS AND URETERS: There are multiple bilateral renal stones. Largest stone measures 3 mm in the lower pole of the left kidney. The kidneys appear lobulated in shape. There may be mild renal cortical thinning or scarring right kidney. No hydronephrosis, ureteral dilatation or ureteral stone is seen. BLADDER: Unremarkable. GASTROINTESTINAL TRACT: The small and large bowel are unremarkable. The appendix is unremarkable. ABDOMINAL WALL: There is a small umbilical hernia containing fat. LYMPH NODES: Normal. VASCULAR: Unremarkable. PELVIC VISCERA: Unremarkable. OSSEOUS STRUCTURES: Unremarkable. CT/CT abdomen pelvis wo con IMPRESSION: Multiple small bilateral renal stones. No hydronephrosis, ureteral dilatation or ureteral stone.
[2021-02-14 08:20] VITALS: BP 102/68; PULSE 92; RESP 16; TEMP 36.9; O2SAT 100; BMI 30.9
--- NOTE | 2021-02-14 08:31 | ED.ABDPAIN ---
HPI - Abdominal Pain General Chief Complaint: Abdominal Pain Stated Complaint: flank pain Time Seen by Provider: 02/14/21 08:17 Source: patient Mode of arrival: ambulatory Limitations: no limitations History of Present Illness HPI narrative: 55 y/o female with history of kidney stones, pyelonephritis, poorly controlled DM, CAD, who presents to the ED with acute onset of severe left sided flank pain that started last night. She reports the pain is in her left kidney and it radiates across her back to the right side. She feels like she has a kidney stone or kidney infection. She denies dysuria, hematuria, fever, chills, abdominal pain, vomiting, nausea, diarrhea. She reports her urine is foul smelling. MD elicited complaint: flank pain Pertinent past history: kidney stones Onset (ago): day(s) (1) Pain Consistency: constant Location: L flank Severity: severe Pain scale (0-10): 12 Quality: stabbing Radiation: R flank Migration to: no migration Exacerbating factors: movement Relieving factors: nothing Context: history of similar episodes Associated symptoms: denies other symptoms Related Data Home Medications Medication Instructions Recorded Confirmed rosuvastatin 40 mg tablet 40 mg PO BEDTIME 08/25/20 02/13/21 blood sugar diagnostic #10 ea 09/26/20 02/13/21 Previous Rx's Medication Instructions Recorded metformin 500 mg tablet,extended 1,000 mg PO BID #120 tab 03/11/20 release 24 hr flash glucose sensor (FreeStyle #2 ea 11/01/20 Radha 2 Sensor) metoprolol succinate 50 mg 50 mg PO DAILY #90 tab 11/02/20 tablet,extended release 24 hr aspirin 81 mg tablet,delayed 81 mg PO DAILY #30 tab 11/10/20 release ezetimibe 10 mg tablet 10 mg PO DAILY #30 tab 12/20/20 valsartan 160 1 tab PO DAILY #30 tab 12/25/20 mg-hydrochlorothiazide 12.5 mg tablet levothyroxine 125 mcg tablet 125 mcg PO DAILY #30 tab 01/23/21 cholecalciferol (vitamin D3) 125 125 mcg PO DAILY #30 cap 02/01/21 mcg (5,000 unit) capsule insulin aspart U-100 100 unit/mL See Rx Instructions SUBCUT DAILY 02/01/21 subcutaneous solution (Novolog #50 ml U-100 Insulin aspart) gabapentin 300 mg capsule 300 mg PO BEDTIME PRN 90 Days #90 02/02/21 cap polymyxin B sulfate 10,000 1 drp OPHTHALMIC (EYE) Q4H 7 Days 02/13/21 unit-trimethoprim 1 mg/mL eye drops #10 ml cefuroxime axetil 250 mg tablet 250 mg PO BID 7 Days #14 tab 02/14/21 Allergies Allergy/AdvReac Type Severity Reaction Status Date / Time dulaglutide [From TRULICITY] Allergy Unknown DIARRHEA Verified 02/13/21 15:34 AND VOMITTING liraglutide [From VICTOZA] Allergy Unknown DIARRHEA Verified 02/13/21 15:34 AND VOMITTING, vomiting and diahrrea Review of Systems Review of Systems Constitutional: No Fever, No Chills ENT/Mouth: No sore throat, No Rhinorrhea, No Swallowing Difficulty Eyes: No Eye Pain, No Swelling, No Redness Cardiovascular: No Chest Pain, No SOB, No Orthopnea, No Edema Respiratory: No Cough, No Sputum, No Wheezing, No dyspnea Gastrointestinal: No Nausea, No Vomiting, No Diarrhea, + abdominal Pain, No Hematochezia, No Melena Genitourinary: No Dysuria, No Urinary Frequency, No Hematuria, +foul smelling urine Musculoskeletal: No joint pain, No Myalgias Skin: No Skin Lesions, No rash Neuro: No Weakness, No Numbness, No Dizziness, No Headache Psych: No Anxiety/Panic, No Depression Heme/Lymph: No Bruising, No Lymphadenopathy Endocrine: No Polyuria, No Polydipsia Physical Exam Vital Signs: Vital Signs: Last Vital Signs Temp 98.5 F 02/14/21 08:20 Pulse 72 02/14/21 13:43 Resp 16 02/14/21 13:43 BP 116/59 L 02/14/21 13:43 Pulse Ox 96 02/14/21 13:43 Body Mass Index 30.9 Appearance: Alert. Oriented X3. No acute distress. Eyes: Pupils equal, round and reactive to light. ENT: Pharynx normal. Neck: Normal inspection. Neck supple. CVS: Normal heart rate and rhythm. Pulses normal. Respiratory: No respiratory distress. Breath sounds normal. Abdomen: Soft and nontender. +BS x4 NO CVA tenderness bilaterally. Skin: Skin warm and dry. Normal skin color. Normal skin turgor. No rashes. Extremities: No lower extremity edema. Neuro: Oriented X 3. No motor deficit. No sensory deficit. Course Course Course Narrative: 55 y/o female presenting with acute onset of left sided flank pain that started last night and radiates across to the right side, associated with foul smelling urine. Will get labs, UA, and CT scan for further evaluation. Reevaluation(s) Reevaluation #1: Labs showing glucose 361 - she has an insulin pump and gave herself insulin. No anion gap. She is getting IVF. Pain persists after morphine - IV toradol and tylenol ordered as well. Reevaluation #2: CT scan showed multiple small bilateral renal stones without hydro, ureteral stones or ureteral stones. UA is still pending. She has a WBC 13.4 but does not appear to be septic. Reevaluation #3: UA + for infection. No pyelo, no fevers, N/V. Will treat with PO abx and have her follow up with her PCP. Patient agrees with plan. MDM - Abdominal Pain Lab Data Result diagrams: 02/14/21 08:33 02/14/21 08:33 Labs: Lab Results 02/14/21 02/14/21 02/14/21 Range/Units 08:33 08:33 13:42 WBC 13.4 H (4.8-10.8) X10*3/uL RBC 5.07 (4.20-5.50) X10*6/uL Hgb 13.9 (12.0-16.0) g/dl Hct 43.7 (37-47) % MCV 86.2 (80-98) fL MCH 27.4 (27.0-33.0) pg MCHC 31.8 (31.0-35.0) g/dl RDW 13.8 (11.0-16.0) % Plt Count 353 (160-400) X10*3/uL MPV 11.8 (9.4-12.3) fL Immature Gran % (Auto) 0.2 (0.0-0.4) % Neut % (Auto) 74.5 H (45-73) % Lymph % (Auto) 18.2 L (20-40) % [place] % (Auto) 5.8 (2-11) % Eos % (Auto) 0.9 (0-4) % Baso % (Auto) 0.4 (0-2) % Lymph # (Auto) 2.4 (1.2-4.9) X10*3/uL [place] # (Auto) 0.8 (0.1-1.2) X10*3/uL Eos # (Auto) 0.1 (0.0-0.4) X10*3/uL Baso # (Auto) 0.1 (0.0-0.2) X10*3/uL Abs Immat Gran (auto) 0.03 (0.00-0.03) X10*3/uL Absolute Neuts (auto) 10.0 H (2.0-8.3) X10*3/uL Absolute Nucleated RBC 0.000 (0.0-0.012) X10*3/uL Nucleated RBC % (auto) 0.0 (0.0-0.2) /100WBC Sodium 135 (135-145) mmol/L Potassium 3.9 (3.3-5.1) mmol/L Chloride 102 (96-108) mmol/L Carbon Dioxide 23 (22-29) mmol/L Anion Gap 14 (12-20) BUN 20 H (9-16) mg/dL Creatinine 1.23 (0.5-1.4) mg/dL Estim Creat Clear Calc 48.9 Estimated GFR 45 Random Glucose 361 H* (60-115) mg/dL Calcium 9.8 D (8.4-10.2) mg/dL Magnesium 2.0 (1.6-2.6) mg/dL Total Bilirubin 0.7 (0.0-1.0) mg/dL Direct Bilirubin 0.3 (0.0-0.5) mg/dL AST 16 (5-31) U/L ALT 18 (0-31) U/L Alkaline Phosphatase 125 H D (39-117) U/L Total Protein 7.6 (6.5-8.0) g/dL Albumin 4.4 (3.5-5.0) g/dL Urine Color YELLOW Urine Appearance HAZY Urine pH 6.0 (5.0-8.0) Ur Specific [place] <= 1.005 (1.005-1.025) Urine Protein NEG (NEG-TRACE) MG/DL Urine Glucose (UA) 100 H (NEG) MG/DL Urine Ketones NEG (NEG) MG/DL Urine Blood NEG (NEG) Urine Nitrite NEG (NEG) Ur Leukocyte Esterase TRACE H (NEG) Critical Care Time Critical Care Time Critical Care Time: No Discharge Plan Discharge Clinical Impression: UTI (urinary tract infection) Patient Disposition: Home, Self-Care Instructions: Urinary Tract Infection in Women (ED) Additional Instructions: Your CT scan was normal. Your urine test showed a bladder infection. Take the prescribed antibiotics as directed. Increase your water intake, stay hydrated. Avoid juice and soda to help keep your sugars under control. Follow up with your doctor this week. If you develop new or worsening symptoms call 911 or come back to the ER for further evaluation. Prescriptions: New cefuroxime axetil 250 mg tablet 250 mg PO BID 7 Days Qty: 14 RF: 0 No Action metformin 500 mg tablet extended release 24 hr 1,000 mg PO BID Qty: 120 RF: 0 (DME) FreeStyle Radha 2 Sensor Kit See Rx Instructions .ROUTE .MEDSUPPLY Qty: 2 RF: 11 aspirin 81 mg tablet,delayed release (DR/EC) 81 mg PO DAILY Qty: 30 RF: 5 ezetimibe 10 mg tablet 10 mg PO DAILY Qty: 30 RF: 2 valsartan-hydrochlorothiazide 160-12.5 mg tablet 1 tab PO DAILY Qty: 30 RF: 1 levothyroxine 125 mcg tablet 125 mcg PO DAILY Qty: 30 RF: 6 cholecalciferol (vitamin D3) 125 mcg (5,000 unit) capsule 125 mcg PO DAILY Qty: 30 RF: 11 insulin aspart U-100 [Novolog U-100 Insulin aspart] 100 unit/mL solution See Rx Instructions subcut DAILY Qty: 50 RF: 6 gabapentin 300 mg capsule 300 mg PO BEDTIME PRN (Reason: Pain) 90 Days Qty: 90 RF: 2 rosuvastatin 40 mg tablet 40 mg PO BEDTIME RF: 0 polymyxin B sulf-trimethoprim 10,000 unit- 1 mg/mL drops 1 drp ophthalmic (eye) Q4H 7 Days Qty: 10 RF: 0 (DME) FreeStyle Lite Strips Strip See Rx Instructions strip .ROUTE .MEDSUPPLY Qty: 10 RF: 0 metoprolol succinate 50 mg tablet extended release 24 hr 50 mg PO DAILY Qty: 90 RF: 4 Referrals: Po,Dany Grant MD [Primary Care Provider] - 1 week [facility] Past Medical History Medical History Arthritis Carpal tunnel syndrome Coronary artery disease Depression Essential hypertension History of Clostridium difficile infection Hypercholesterolemia Kidney stone Left navicular fracture of foot Postsurgical hypothyroidism Thyroid nodule Type 2 diabetes mellitus with diabetic polyneuropathy Type 2 diabetes mellitus with hyperglycemia Vitamin B12 deficiency Vitamin D deficiency Surgical History History of renal stent Hx of section Hx of myomectomy Hx of thyroidectomy Hx of toe surgery Hx of tonsillectomy Family History Family History Father DM (diabetes mellitus) Hypertension High cholesterol Spina bifida Kidney stone Mother DM (diabetes mellitus) Hypertension High cholesterol CAD (coronary artery disease) Social History Social History Household Members: Children Household Members Other:: daughter Housing: Apartment Do you presently have visiting nurse or other home services: No Alcohol intake: never Patient Tobacco Use Status: Never used Tobacco Second Hand Smoke Exposure: No Advance Directives: No Advance Directives Information Provided: No Patient : No service: No Current occupational status: employed
[2021-02-14] MEDS: 0.9 % Sodium Chloride 1,000 ML 999 ML IVCONT ×2 (08:42→11:08)
[2021-02-14 08:45] VITALS: RESP 20
[2021-02-14] MEDS: Morphine Sulfate 4 MG/ML CARTRIDGE IVPUSH (08:45)
[2021-02-14 08:48] LABS: MANUAL DIFF FLAG NO
[2021-02-14 08:53] LABS: Basophils Absolute Auto 0.1 X10*3/uL (0.0-0.2); Basophils Percent Auto 0.4 % (0-2); Eosinophils Absolute Auto 0.1 X10*3/uL (0.0-0.4); Eosinophils Percent Auto 0.9 % (0-4); Hematocrit 43.7 % (37-47); Hemoglobin 13.9 g/dl (12.0-16.0); Imm Gran Abs Auto 0.03 X10*3/uL (0.00-0.03); Imm Gran Pct Auto 0.2 % (0.0-0.4); Lymphocytes Absolute Auto 2.4 X10*3/uL (1.2-4.9); Lymphocytes Percent Auto 18.2 % (20-40); Mean Corpuscular HGB Conc 31.8 g/dl (31.0-35.0); Mean Corpuscular Hemoglobin 27.4 pg (27.0-33.0); Mean Corpuscular Volume 86.2 fL (80-98); Mean Platelet Volume 11.8 fL (9.4-12.3); Monocytes Absolute Auto 0.8 X10*3/uL (0.1-1.2); Monocytes Percent Auto 5.8 % (2-11); Neutrophils Percent Auto 74.5 % (45-73); Platelet Count 353 X10*3/uL (160-400); Red Blood Count 5.07 X10*6/uL (4.20-5.50); Red Cell Distribution Width 13.8 % (11.0-16.0); White Blood Count 13.4 X10*3/uL (4.8-10.8)
[2021-02-14 09:19] LABS: Alanine Aminotransferase 18 U/L (0-31); Albumin Level 4.4 g/dL (3.5-5.0); Alkaline Phosphatase 125 U/L (39-117); Anion Gap 14 (12-20); Aspartate Amino Transferase 16 U/L (5-31); Bilirubin Direct 0.3 mg/dL (0.0-0.5); Bilirubin Total 0.7 mg/dL (0.0-1.0); Blood Urea Nitrogen 20 mg/dL (9-16); Calcium 9.8 mg/dL (8.4-10.2); Carbon Dioxide 23 mmol/L (22-29); Chloride 102 mmol/L (96-108); Creatinine Clr Calc Pharmacy 48.9; Estimated Glomerular Filt Rate 45; Glucose Random 361 mg/dL (60-115); Potassium 3.9 mmol/L (3.3-5.1); Sodium 135 mmol/L (135-145); Total Protein 7.6 g/dL (6.5-8.0)
[2021-02-14 10:18] VITALS: BP 110/60; PULSE 79; RESP 16; O2SAT 95
[2021-02-14] MEDS: Ketorolac Tromethamine 15 MG/ML VIAL IVPUSH (10:28)
[2021-02-14] MEDS: Acetaminophen 325 MG TABLET 650 MG PO (10:28)
[2021-02-14 12:01] VITALS: BP 118/63; PULSE 71; RESP 16; O2SAT 96
[2021-02-14 13:43] VITALS: BP 116/59; PULSE 72; RESP 16; O2SAT 96
[2021-02-14 13:56] LABS: Appearance Urine HAZY; Color Urine YELLOW; Glucose Urine UA 100 MG/DL (NEG); Leukocyte Esterase Urine TRACE (NEG); Nitrite Urine NEG (NEG); Specific Gravity - Urine <= 1.005 (1.005-1.025); UACC Culture Trigger YES; Urine Blood NEG (NEG); Urine Ketones NEG (NEG); Urine Protein NEG (NEG-TRACE)
[2021-02-14 14:23] LABS: Bacteria Urine 3+ /LPF; RBC Urine 0-2 /HPF (0); Squamous Epithelial Cell Urine TRACE /LPF; WBC Clumps Urine NOTED
== END 2021-02-14 14:51 | disposition home or self-care (01) ==
PROVIDERS: Physician Assistant; Emergency Provider Emergency Medicine; PCP Internal Medicine
DX: N39.0 Urinary tract infection, site not specified (principal); R10.9 Unspecified abdominal pain; E11.9 Type 2 diabetes mellitus without complications; Z96.41 Presence of insulin pump (external) (internal); Z79.899 Other long term (current) drug therapy
CPT/HCPCS: 36415; 74176; 80048; 80076; 81001; 83735; 85025; 87086; 87088; 87186; 96361; 96374; 96375; 99284; 99285; J1885; J2270

== ENCOUNTER → 2021-03-13 14:55 | Outpatient (BNVA) | payer OTHER, SELFPAY | PROVIDERS: PCP Internal Medicine | DX: N20.0 Calculus of kidney (principal); R32 Unspecified urinary incontinence; E11.65 Type 2 diabetes mellitus with hyperglycemia; E11.42 Type 2 diabetes mellitus with diabetic polyneuropathy; I25.10 Atherosclerotic heart disease of native coronary artery without angina pectoris; I10 Essential (primary) hypertension; E89.0 Postprocedural hypothyroidism; E78.00 Pure hypercholesterolemia, unspecified; E53.8 Deficiency of other specified B group vitamins; E55.9 Vitamin D deficiency, unspecified; Z96.0 Presence of urogenital implants | CPT/HCPCS: 99212 ==

== ENCOUNTER 2021-04-12 08:00 | Outpatient (RCR) | payer OTHER, SELFPAY | END 2021-04-17 18:06 | disposition home or self-care (01) | LOC: HO.PT 08:00 | PROVIDERS: PCP Internal Medicine; Visit Provider Nurse Practitioner Family | DX: M54.50 Low back pain, unspecified (principal) | CPT/HCPCS: 97110; 97112; 97150; 97162 ==

== ENCOUNTER 2021-04-27 16:15 | Outpatient (REF) | payer OTHER, SELFPAY ==
[2021-04-27 17:27] LABS: Anion Gap 13 (12-20); Blood Urea Nitrogen 18 mg/dL (9-16); Calcium 10.3 mg/dL (8.4-10.2); Carbon Dioxide 28 mmol/L (22-29); Chloride 103 mmol/L (96-108); Estimated Glomerular Filt Rate 46; Potassium 4.2 mmol/L (3.3-5.1); Sodium 140 mmol/L (135-145)
== END 2021-04-27 16:16 | disposition home or self-care (01) ==
LOC: HO.LAB 16:15
PROVIDERS: PCP Internal Medicine; Visit Provider Internal Medicine Hypertension Specialist
DX: I12.9 Hypertensive chronic kidney disease with stage 1 through stage 4 chronic kidney disease, or unspecified chronic kidney disease (principal); N18.9 Chronic kidney disease, unspecified
CPT/HCPCS: 36415; 80051; 82310; 82565; 84520

== ENCOUNTER 2021-05-01 15:03 | Outpatient (REF) | payer OTHER, SELFPAY ==
--- NOTE | ~2021-05-01 | US_ITS ---
EXAMINATION: US RETROPERITONEAL LIMITED (RENAL ONLY) CLINICAL INFORMATION: Calculus of kidney. COMPARISON: CT abdomen and pelvis 02/14/2021. Renal ultrasound 11/03/2018. X-ray abdomen 07/07/2014. Ultrasound kidneys and bladder 10/29/2013. TECHNIQUE: Real-time imaging of the kidneys. FINDINGS: RIGHT KIDNEY: 11.2 x 5.1 x 5.9 cm (SAG x AP x TRV). The kidney is normal in size, contour, and echogenicity. Renal cortical thickness is normal. Two subcentimeter nonobstructing renal calculi are noted, the largest measuring 7 mm. There is similar fullness of the renal pelvis without overt hydronephrosis. LEFT KIDNEY: 12.6 x 7.1 x 7.3 cm (SAG x AP x TRV). The kidney is normal in size, contour, and echogenicity. Renal cortical thickness is normal. A few subcentimeter nonobstructing renal calculi are noted, the largest measuring 8 mm. There is no hydronephrosis. BLADDER: The bladder is only partially distended resulting in suboptimal evaluation. There is however no gross bladder abnormality identified. Bilateral ureteral jets are demonstrated. US/US renal BI IMPRESSION: Nonobstructing subcentimeter renal calculi bilaterally. No hydronephrosis.
== END 2021-05-01 15:04 | disposition home or self-care (01) ==
LOC: HO.US 15:03
PROVIDERS: PCP Internal Medicine
DX: N20.0 Calculus of kidney (principal)
CPT/HCPCS: 76775

== ENCOUNTER → 2021-05-09 15:12 | Outpatient (BNVA) | payer OTHER, SELFPAY | PROVIDERS: PCP Internal Medicine; Referring Provider Internal Medicine; Visit Provider Internal Medicine | DX: I25.10 Atherosclerotic heart disease of native coronary artery without angina pectoris (principal); E11.65 Type 2 diabetes mellitus with hyperglycemia; I10 Essential (primary) hypertension | CPT/HCPCS: 93005; 99212 ==

== ENCOUNTER 2021-05-26 15:13 | Outpatient (REF) | payer OTHER, SELFPAY ==
[2021-05-26 15:27] LABS: MANUAL DIFF FLAG NO
[2021-05-26 15:33] LABS: Basophils Absolute Auto 0.1 X10*3/uL (0.0-0.2); Basophils Percent Auto 0.7 % (0-2); Eosinophils Absolute Auto 0.2 X10*3/uL (0.0-0.4); Eosinophils Percent Auto 1.5 % (0-4); Hematocrit 42.3 % (37.0-47.0); Hemoglobin 13.9 g/dl (12.0-16.0); Imm Gran Abs Auto 0.04 X10*3/uL (0.00-0.03); Imm Gran Pct Auto 0.4 % (0.0-0.4); Lymphocytes Absolute Auto 3.2 X10*3/uL (1.2-4.9); Lymphocytes Percent Auto 30.7 % (20-40); Mean Corpuscular HGB Conc 32.9 g/dl (31.0-35.0); Mean Corpuscular Hemoglobin 28.3 pg (27.0-33.0); Mean Platelet Volume 11.2 fL (9.4-12.3); Monocytes Absolute Auto 0.8 X10*3/uL (0.1-1.2); Monocytes Percent Auto 7.5 % (2-11); Neutrophils Absolute Auto 6.2 x10*3/uL (2.0-8.3); Neutrophils Percent Auto 59.2 % (45-73); Platelet Count 361 X10*3/uL (160-400); Red Blood Count 4.92 X10*6/uL (4.20-5.50); Red Cell Distribution Width 13.2 % (11.0-16.0); White Blood Count 10.4 X10*3/uL (4.8-10.8)
[2021-05-26 15:54] LABS: Calcium 10.4 mg/dL (8.4-10.2); Chloride 102 mmol/L (96-108); Potassium 4.1 mmol/L (3.3-5.1); Sodium 137 mmol/L (135-145)
[2021-05-26 16:20] LABS: Free T4 (Free Thyroxine) 0.81 ng/dL (0.71-1.85); Thyroid Stimulating Hormone 42.05 uIU/mL (0.32-4.0); Vitamin D 25-OH Total 23.7 ng/mL (>30)
[2021-05-26 16:29] LABS: Alanine Aminotransferase 19 U/L (0-31); Albumin Level 4.4 g/dL (3.5-5.0); Alkaline Phosphatase 113 U/L (39-117); Anion Gap 14 (12-20); Aspartate Amino Transferase 18 U/L (5-31); Bilirubin Total 0.4 mg/dL (0.0-1.0); Blood Urea Nitrogen 18 mg/dL (9-16); Carbon Dioxide 24 mmol/L (22-29); Cholesterol 132 mg/dL; Estimated Glomerular Filt Rate 41; Glucose Random 328 mg/dL (60-115); HDL Cholesterol 52 mg/dL; LDL Cholesterol Calculated 56 mg/dl; Total Protein 7.7 g/dL (6.5-8.0); Triglycerides 124 mg/dL
[2021-05-26 16:31] LABS: Folate 9.7 ng/mL (> or = 4.0); Vitamin B12 485 pg/mL (200-900)
[2021-05-26 16:49] LABS: Appearance Urine HAZY; Color Urine YELLOW; Glucose Urine UA >=1000 MG/DL (NEG); Leukocyte Esterase Urine NEG (NEG); Nitrite Urine NEG (NEG); Urine Blood 2+ (NEG); Urine Ketones NEG (NEG); Urine Protein TRACE MG/DL (NEG-TRACE)
[2021-05-26 18:09] LABS: Bacteria Urine 4+ /LPF; WBC Urine 0-2 /HPF (0-4)
== END 2021-05-26 15:14 | disposition home or self-care (01) ==
LOC: HO.LAB 15:13
PROVIDERS: PCP Internal Medicine; Visit Provider Internal Medicine
DX: E11.65 Type 2 diabetes mellitus with hyperglycemia (principal); E78.00 Pure hypercholesterolemia, unspecified
CPT/HCPCS: 36415; 80053; 80061; 81001; 82306; 82607; 82746; 84439; 84443; 85025

== ENCOUNTER → 2021-06-13 15:15 | Outpatient (BNVA) | payer OTHER, SELFPAY | PROVIDERS: PCP Internal Medicine ==

== ENCOUNTER → 2021-06-23 07:04 | Outpatient (BNVA) | payer OTHER, SELFPAY | PROVIDERS: PCP Internal Medicine; Visit Provider Nurse Practitioner Gerontology ==

== ENCOUNTER → 2021-08-16 15:10 | Outpatient (BNVA) | payer OTHER, SELFPAY | PROVIDERS: PCP Internal Medicine; Visit Provider Registered Nurse Diabetes Educator | DX: E11.65 Type 2 diabetes mellitus with hyperglycemia (principal) | CPT/HCPCS: 99211 ==

== ENCOUNTER → 2021-08-25 08:26 | Outpatient (BNVA) | payer OTHER, SELFPAY | PROVIDERS: PCP Internal Medicine; Visit Provider Registered Nurse Diabetes Educator | DX: E11.65 Type 2 diabetes mellitus with hyperglycemia (principal); Z46.81 Encounter for fitting and adjustment of insulin pump; Z79.4 Long term (current) use of insulin | CPT/HCPCS: 99211 ==

== ENCOUNTER 2021-09-08 12:23 | Outpatient (REF) | payer OTHER, SELFPAY ==
[2021-09-08 13:51] LABS: Anion Gap 10 (12-20); Blood Urea Nitrogen 14 mg/dL (9-16); Calcium 9.8 mg/dL (8.4-10.2); Carbon Dioxide 29 mmol/L (22-29); Chloride 104 mmol/L (96-108); Estimated Glomerular Filt Rate > 60; Potassium 4.2 mmol/L (3.3-5.1); Sodium 139 mmol/L (135-145)
[2021-09-08 14:12] LABS: Creatinine Urine 58.41 mg/dL; Protein/Creatinine Ratio, Ur 0.43 (<0.2); Total Protein Urine Random 25 mg/dL (<12)
== END 2021-09-08 12:24 | disposition home or self-care (01) ==
LOC: HO.LAB 12:23
PROVIDERS: Visit Provider Internal Medicine Hypertension Specialist
DX: I12.9 Hypertensive chronic kidney disease with stage 1 through stage 4 chronic kidney disease, or unspecified chronic kidney disease (principal); N18.9 Chronic kidney disease, unspecified; E11.22 Type 2 diabetes mellitus with diabetic chronic kidney disease; E11.21 Type 2 diabetes mellitus with diabetic nephropathy
CPT/HCPCS: 36415; 80051; 82310; 82565; 84156; 84520

== ENCOUNTER → 2021-09-22 15:06 | Outpatient (BNVA) | payer OTHER, SELFPAY | PROVIDERS: PCP Internal Medicine; Visit Provider Registered Nurse Diabetes Educator | DX: E11.65 Type 2 diabetes mellitus with hyperglycemia (principal); Z79.4 Long term (current) use of insulin; Z96.41 Presence of insulin pump (external) (internal) | CPT/HCPCS: 99211 ==

== ENCOUNTER 2021-09-27 06:29 | Outpatient (REF) | payer OTHER, SELFPAY ==
[2021-09-27 08:21] LABS: Free T4 (Free Thyroxine) 1.07 ng/dL (0.71-1.85); Thyroid Stimulating Hormone 0.81 uIU/mL (0.32-4.0)
[2021-09-27 08:41] LABS: Appearance Urine CLEAR; Color Urine YELLOW; Glucose Urine UA NEG (NEG); Leukocyte Esterase Urine TRACE (NEG); Nitrite Urine NEG (NEG); PH 6.5 (5.0-8.0); Specific Gravity - Urine 1.015 (1.005-1.025); Urine Blood NEG (NEG); Urine Ketones NEG (NEG); Urine Protein TRACE MG/DL (NEG-TRACE)
[2021-09-27 08:53] LABS: Creatinine Urine 68.92 mg/dL
[2021-09-27 09:03] LABS: Amorphous Sediment Urine 1+ /LPF; Bacteria Urine 1+ /LPF; Squamous Epithelial Cell Urine 1+ /LPF
== END 2021-09-27 06:30 | disposition home or self-care (01) ==
LOC: HO.LAB 06:29
PROVIDERS: Absent Provider Nurse Practitioner Gerontology; PCP Internal Medicine; Visit Provider Internal Medicine
DX: E11.65 Type 2 diabetes mellitus with hyperglycemia (principal); E11.42 Type 2 diabetes mellitus with diabetic polyneuropathy; E89.0 Postprocedural hypothyroidism; E55.9 Vitamin D deficiency, unspecified; E78.00 Pure hypercholesterolemia, unspecified; Z79.899 Other long term (current) drug therapy; Z96.41 Presence of insulin pump (external) (internal); Z79.4 Long term (current) use of insulin; Z71.3 Dietary counseling and surveillance
CPT/HCPCS: 36415; 81001; 82043; 82947; 84439; 84443; 99212

== ENCOUNTER 2021-09-29 14:56 | Outpatient (REF) | payer OTHER, SELFPAY ==
--- NOTE | ~2021-09-29 | MM_ITS ---
EXAMINATION: MM SCREENING DIGITAL BREAST TOMOSYNTHESIS, BILATERAL CLINICAL INFORMATION: Screening. Asymptomatic. The lifetime risk of breast cancer based on the Tyrer-Cuzick Model is 7%. COMPARISON: Mammography: 09/27/2020; outside mammography 06/30/2018, 08/06/2017, 07/03/2016 ([place]) TECHNIQUE: Digital breast tomosynthesis is performed in both the craniocaudal and mediolateral oblique views along with computer-aided detection (CAD). Synthesized 2D images are generated from the tomosynthesis. FINDINGS: There are scattered areas of fibroglandular density (ACR BI-RADS breast composition Category b). There are no significant masses, abnormal calcifications, or other abnormalities. There is minor asymmetries similar to prior studies. No developing density. Scattered round and vascular calcifications are present. The axilla and skin contours are unremarkable. MM/MM tomosynthesis screening BI IMPRESSION: No mammographic evidence of malignancy. ASSESSMENT: BI-RADS 2: Benign RECOMMENDATION: Routine annual mammography screening. This patient's information was entered into a reminder system with a target due date for their next mammogram.
== END 2021-09-29 14:57 | disposition home or self-care (01) ==
LOC: HO.MAMMO 14:56
PROVIDERS: PCP Internal Medicine; Visit Provider Internal Medicine
DX: Z12.31 Encounter for screening mammogram for malignant neoplasm of breast (principal)
CPT/HCPCS: 77063; 77067

== ENCOUNTER 2021-10-15 14:40 | Emergency (ER) | payer OTHER, SELFPAY ==
[2021-10-15 14:57] VITALS: BP 152/74; PULSE 69; RESP 18; TEMP 36.2; O2SAT 97; BMI 31.1
--- NOTE | 2021-10-15 16:54 | PC.NURSE ---
this rn went to check POC again. pt appears to have left.
[2021-10-15 17:18] LABS: Glucose, Whole Blood 104 mg/dL (60-115)
== END 2021-10-15 17:58 | disposition left against medical advice (07) ==
PROVIDERS: Emergency Provider Emergency Medicine; PCP Internal Medicine
DX: R73.9 Hyperglycemia, unspecified (principal)
CPT/HCPCS: 82947; 99282

== ENCOUNTER 2021-10-24 09:00 | Outpatient (RCR) | payer OTHER, SELFPAY ==
[2021-06-02 13:08] VITALS: BP 130/80
--- NOTE | 2021-06-02 15:22 | MHC.PT.EP ---
[facility] [place] Office [place] Office [place] Office [address] Nely Miguel [address] [phone] F: [phone] F: [phone] F: [phone] F: [phone] Physical Therapy Plan of Care Date of Evaluation: 06/02/21 Date of Surgery: n/a Diagnosis: urinary incontinence Assessment: The patient has a complicated medical history. Upon pelvic exam of PFM it was found she had increased resting tone of her PFM. She had excellent strength in PFM but poor endurance, and poor ability to relax the muscles. She also has a significant abdominal scar that I believe she would benefit from manual therapy for scar management. She currently has poor body mechanics, breathing mechanics are poor. She has contraction of PFM with inhalation, which is the opposite motion. The patient was educated about relaxation, diaphragmatic breathing, and increasing water intake. She also got a serious foot cramp into plantarflexion while in the evaluation. She was unable to move her foot for about 30 seconds due to a severe cramp. She may benefit from MD mesa/michael since she reports this happens 1x/week. She is a good candidate for skilled PT. Frequency and Duration: The patient will be seen 1x/week x 4 weeks. Short Term Goals: 1. Educate patient on diaphragmatic breathing to help facilitate relaxation of PFM. 2. Education patient on posture, and body mechanics to reduce strain on the PFM. Custodial Goals: 1. Pt's scar to have good mobility in all levels of tension to reduce chance of adhesions. 2. Pt to be able to perform final HEP independently to facility proper function of the PFM. 3. pt to have improve muscular endurance of PFM. Treatment Plan: Modalities to reduce pain, spasms and effusion. Manual therapy to restore motion and function. Therapeutic exercise to improve strength and flexibility. Neuromuscular re-education for posture and balance. Therapeutic activities to return to functional activities of daily living. Electronically signed by: Please sign and return to therapist. Thank you for your referral.
--- NOTE | 2021-10-13 09:31 | MHC.PT.PR ---
[facility] [place] Office [place] Office [place] Office [address] Nely Miguel 140 [facility] [phone] F: [phone] F: [phone] F: [phone] F: [phone] Physical Therapy Progress Note Diagnosis: urinary incontinence Date of Surgery: Date of Evaluation: 06/02/21 Treatments to Date: 9 Cancellations to Date: No Shows to Date: Subjective: The patient arrived reporting continued stress incontinence. It has improved since our initial evaluation but it is still occurring. She just finished her treatment for a UTI. Pain Score and Location: 0 Objective Measures: PERF scale Assessment: PERF scale measured today. In standing the patient has prolapse of her anterior vaginal wall with a Delancey level 3 defect causing urethrocystocele. The patient is having continued incontinence despite having good strength, and coordination, and endurance of her pelvic floor. Her coordination, strength has improved since initial evaluation, but she continues to have incontinence at least 8 times a day. She has a significant abdominal scar that I have mobilized and taught her how to mobilize. I educated her on reducing suprapubic pressure with tight pants. At this time I recommend a urogynecologist consult. PT Plan: Frequency and Duration: The patient will be seen 1x/week x 4 weeks. Treatment Plan: Therapeutic Exercise Dynamic Therapeutic Activities Neuromuscular Re-ed Manual Therapies Home Exercise Program Patient Education Pelvic Floor Therapy Reviewed/ Agreed with Student Documentation: Therapist: Zully Fritz PT DPT Thank you once again for your referral.
== END 2021-12-22 14:28 | disposition home or self-care (01) ==
LOC: HO.PT 09:00
PROVIDERS: PCP Internal Medicine
DX: R32 Unspecified urinary incontinence (principal)
CPT/HCPCS: 97110; 97112; 97140; 97163; 97530

== ENCOUNTER → 2021-11-03 15:11 | Outpatient (BNVA) | payer OTHER, SELFPAY | PROVIDERS: PCP Internal Medicine; Visit Provider Registered Nurse Diabetes Educator | DX: E11.65 Type 2 diabetes mellitus with hyperglycemia (principal); Z46.81 Encounter for fitting and adjustment of insulin pump; Z79.4 Long term (current) use of insulin | CPT/HCPCS: 99211 ==

== ENCOUNTER → 2021-11-13 14:58 | Outpatient (BNVA) | payer OTHER, SELFPAY | PROVIDERS: PCP Internal Medicine; Referring Provider Internal Medicine; Visit Provider Internal Medicine | DX: I25.10 Atherosclerotic heart disease of native coronary artery without angina pectoris (principal); E11.65 Type 2 diabetes mellitus with hyperglycemia; I10 Essential (primary) hypertension; Z79.4 Long term (current) use of insulin; Z79.82 Long term (current) use of aspirin | CPT/HCPCS: 99212 ==

== ENCOUNTER → 2021-11-15 13:55 | Outpatient (REF) | payer OTHER, SELFPAY | LOC: HO.SL 13:55 | PROVIDERS: Visit Provider Internal Medicine | DX: G47.33 Obstructive sleep apnea (adult) (pediatric) (principal); G47.10 Hypersomnia, unspecified | CPT/HCPCS: 95806 ==

== ENCOUNTER 2021-11-22 14:38 | Outpatient (REF) | payer OTHER, SELFPAY ==
--- NOTE | ~2021-11-22 | US_ITS ---
EXAMINATION: US RETROPERITONEAL LIMITED (RENAL ONLY) CLINICAL INFORMATION: Calculus of kidney. COMPARISON: US retroperitoneal limited (renal only) 05/01/2021 and 11/03/2018. CT abdomen and pelvis without contrast 02/14/2021. X-ray abdomen and chest 07/07/2014. XR abdomen KUB 09/20/2011. TECHNIQUE: Real-time imaging of the kidneys. FINDINGS: RIGHT KIDNEY: 11.5 x 4.4 x 5.2 cm (SAG x AP x TRV). Lobulated contour. Renal cortical thickness is normal. No focal parenchymal lesions. Mild hydronephrosis and proximal hydroureter. Right ureteral jet is seen. Midpole nonobstructing calculus measures 0.8 x 0.4 x 0.8 cm. LEFT KIDNEY: 11.7 x 6.4 x 5.3 cm (SAG x AP x TRV). Lobulated contour. Renal cortical thickness is normal. No focal parenchymal lesions or hydronephrosis. Left ureteral jet is not seen. Midpole nonobstructing calculus measures 1.1 x 0.5 x 1.0 cm. Mid to lower pole nonobstructing calculus measures 1.5 x 0.7 x 0.6 cm. US/US renal BI IMPRESSION: Bilateral renal calculi. Mild right hydronephrosis and proximal hydroureter.
== END 2021-11-22 14:39 | disposition home or self-care (01) ==
LOC: HO.US 14:38
DX: N20.0 Calculus of kidney (principal)
CPT/HCPCS: 76775

== ENCOUNTER 2021-12-06 16:48 | Outpatient (REF) | payer OTHER, SELFPAY ==
[2021-12-06 17:50] LABS: Appearance Urine CLOUDY; Color Urine YELLOW; Glucose Urine UA 250 MG/DL (NEG); Leukocyte Esterase Urine TRACE (NEG); Nitrite Urine NEG (NEG); Urine Blood NEG (NEG); Urine Ketones NEG (NEG); Urine Protein TRACE MG/DL (NEG-TRACE)
[2021-12-06 18:10] LABS: Bacteria Urine 4+ /LPF; RBC Urine 0-2 /HPF (0); Squamous Epithelial Cell Urine TRACE /LPF; WBC Clumps Urine NOTED
== END 2021-12-06 16:49 | disposition home or self-care (01) ==
LOC: HO.LAB 16:48
PROVIDERS: PCP Internal Medicine; Visit Provider Internal Medicine
DX: N39.0 Urinary tract infection, site not specified (principal)
CPT/HCPCS: 81001; 87086; 87088; 87186

== ENCOUNTER → 2021-12-11 13:33 | Outpatient (BNVA) | payer OTHER, SELFPAY | PROVIDERS: PCP Internal Medicine | DX: N20.0 Calculus of kidney (principal) | CPT/HCPCS: 99212 ==

== ENCOUNTER 2021-12-13 09:34 | Outpatient (REF) | payer OTHER, SELFPAY ==
--- NOTE | ~2021-12-13 | FL_ITS ---
EXAMINATION: FL UPPER GI SERIES CLINICAL INFORMATION: R13.10 - Dysphagia, unspecified COMPARISON: CT abdomen and pelvis 02/14/2021, chest radiograph 08/25/2020. TECHNIQUE: Upper GI series is performed using fluoroscopic evaluation in addition to multiple fluoroscopic spot views. The patient is imaged both upright and prone and using both thick and thin barium sulfate along with effervescent granules. Additional evaluation of the cervical region also performed with cine fluoroscopy. Barium pill also used. Fluoroscopy time: 1.5 minutes DAP: 15.737 Gycm2 Fluoroscopic spot images: 43 FINDINGS: There is normal swallowing with no aspiration, cervical web, cervical diverticulum, or achalasia. There is normal esophageal motility. There is no obstruction, stricture, or ulceration. Barium pill rapidly passed from mouth to stomach without delay. There is a small sliding hiatal hernia demonstrated during the prone Valsalva maneuver measuring approximately 1.2 vertebral bodies in height, reference thoracic spine. There is a nonobstructing small Schatzki ring. The mucosa appears smooth. There is spontaneous gastroesophageal reflux noted during fluoroscopy to the level of the proximal thoracic esophagus. The stomach shows no thickened folds or ulcer crater or outlet obstruction. The duodenal bulb is pliable and without ulcer crater or scarring. The post bulbar duodenum is seen to the distal third portion with normal mucosal pattern. Insulin pump overlies the upper abdomen on some of the images.. FL/FL upper GI series IMPRESSION: -Small intermittent sliding hiatal hernia during prone Valsalva maneuver. -Spontaneous gastroesophageal reflux to level of proximal thoracic esophagus. -No ulceration or scarring.
== END 2021-12-13 09:35 | disposition home or self-care (01) ==
LOC: HO.XRAY 09:34
PROVIDERS: PCP Internal Medicine; Visit Provider Internal Medicine
DX: R13.10 Dysphagia, unspecified (principal); G47.10 Hypersomnia, unspecified
CPT/HCPCS: 74240

== ENCOUNTER → 2021-12-22 10:31 | Outpatient (BNVA) | payer OTHER, SELFPAY | PROVIDERS: PCP Internal Medicine; Visit Provider Nurse Practitioner Family | DX: Z12.11 Encounter for screening for malignant neoplasm of colon (principal); D12.6 Benign neoplasm of colon, unspecified; K21.9 Gastro-esophageal reflux disease without esophagitis; K59.04 Chronic idiopathic constipation | CPT/HCPCS: 99202; 99212 ==

== ENCOUNTER → 2021-12-25 08:08 | Outpatient (REF) | payer OTHER, SELFPAY ==
--- NOTE | 2021-12-25 08:10 | CA_ITS ---
Acquisition Time: 2021-12-25 08:36:14 Total Exercise Time: 00:06:28 Test Indications: I25.10 Medications: SEE CHART Protocol: ALEX Max HR: 121 BPM 74% of Pred: 163 BPM Max BP: 172/072 mmHG Max Work Load: 7.7 METS Exercise stress test with exercise 6 min 28 sec of Alex protocol, achieving 74% MPHR, with mild sob and she denied having chest discomfort until in recovery, with normotensive response to exercise, with EKG changes meeting criteria for ischemia: horizontal ST depression inferiorly and V3-V6 with slow gradual improvement back to baseline EKG in recovery. Baseline EKG does show nonspecific ST/ T wave abn. inferiorly and V4-V6. In recovery her chest tightness resolved by 3.5 minutes of rest. EKGs and results reviewed with Dr New. Will cancel nuclear imaging ( pt was not injected). Will make arrangements for cardiac cath. Pt informed, risks reviewed. BP mildly elevated. Will add low dose Amlodipine as second antianginal. Instructed to seek emergency medical care if she has chest discomfort not relieved with rest. Referred By: Chuckie New Overread By: MICHAEL OLIVARES
== END ==
LOC: HO.CARD 08:08
PROVIDERS: PCP Internal Medicine; Visit Provider Internal Medicine
DX: I25.10 Atherosclerotic heart disease of native coronary artery without angina pectoris (principal)
CPT/HCPCS: 93017; J0280; J2785

== ENCOUNTER → 2021-12-28 15:07 | Outpatient (BNVA) | payer OTHER, SELFPAY | PROVIDERS: PCP Internal Medicine; Visit Provider Registered Nurse Diabetes Educator | DX: E11.65 Type 2 diabetes mellitus with hyperglycemia (principal) | CPT/HCPCS: 99211 ==

== ENCOUNTER 2021-12-29 14:05 | Outpatient (REF) | payer OTHER, SELFPAY ==
--- NOTE | 2022-01-01 08:21 | MHC.AU.AEV ---
Adult Audiological Evaluation Date of Visit: 12/29/21 Reason for Appointment: Patient has started to notice she is having more difficulty understanding speech and is asking for repetition more frequently. Hearing Handicap Inventory Does a hearing problem cause you to feel embarrassed when meeting new people?: No Does a hearing problem cause you to feel frustrated when talking to members of your family?: No Do you have difficulty when someone speaks in a whisper?: Yes Do you feel handicapped by a hearing problem?: No Does a hearing problem cause you difficulty when visiting friends, relatives, or neighbors?: No Does a hearing problem cause you to attend sikh service services less often than you would like?: No Does a hearing problem cause you to have arguments with family members?: No Does a hearing problem cause you difficulty when listening to TV or radio?: Sometimes Do you feel that any difficult with your hearing limits or hampers your personal or social life?: No Does a hearing problem cause you difficulty when in a restaurants with relatives or friends?: No HHIE SCORE: 6 Based on HHIE score, patient has: No perceived hearing handicap Ear History: Ear Deformity: None Reported Recent Ear Drainage: None Reported Previous Ear Surgery: None Reported Bothersome Tinnitus/Ringing/Noises in Ears: None Reported Ear used on the phone: Both Ears Blocked/Full Sensation in Ear(s): None Reported 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 History: No Medical History: Medical History: Diabetes, Headache, Heart Problems, High Blood Pressure, Thyroid Disease Otoscopy: Right Ear: Unremarkable Left Ear: Unremarkable Tympanometry: Tympanometry performed due to: To assess integrity of the middle ear system Right Ear: Normal Middle Ear System (Type A) Left Ear: Normal Middle Ear System (Type A) Hearing Evaluation: Transducer(s) Used: Insert Earphones Method: Conventional Audiometry Stimuli Used: Pure Tones Right Ear: Description of Hearing: Normal from 250-3000 Hz, mild sensorineural hearing loss at 1451-4949 Hz, normal at 8000 Hz Left Ear: Description of Hearing: Normal from 250-3000 Hz, mild sensorineural hearing loss at 8885-0996 Hz, normal at 8000 Hz Speech Recognition Threshold (SRT): Method Used: Recorded Lists Stimuli Used: Spondee Words Right Ear: 20 dBHL Left Ear: 15 dBHL Word Discrimination: Method: Recorded Lists Word Lists Used:: W-22 Right Ear: 88% at 60 dBHL Left Ear: 88% at 60 dBHL Interpretation of Results: At this time, patient's hearing is mostly falling within normal range, with the exception of a mild hearing loss at 9465-6639 Hz. Recommendations: Audiological re-evaluation in 1-2 years, or sooner if changes are noted. Amplification is not warranted at this time. Diagnosis: Primary Diagnosis: H90.3 Bilateral Sensorineural Hearing Loss Signature: Provider: Sanford Hussein, CCC-A
== END 2021-12-29 14:06 | disposition home or self-care (01) ==
LOC: HO.SH 14:05
PROVIDERS: Visit Provider Internal Medicine
DX: Z01.118 Encounter for examination of ears and hearing with other abnormal findings (principal); H90.3 Sensorineural hearing loss, bilateral
CPT/HCPCS: 92557; 92567

== ENCOUNTER 2022-01-02 11:01 | Outpatient (REF) | payer OTHER, SELFPAY ==
[2022-01-02 11:13] LABS: MANUAL DIFF FLAG NO
[2022-01-02 11:46] LABS: Basophils Absolute Auto 0.1 X10*3/uL (0.0-0.2); Basophils Percent Auto 0.8 % (0-2); Eosinophils Absolute Auto 0.2 X10*3/uL (0.0-0.4); Hematocrit 42.6 % (37.0-47.0); Hemoglobin 13.8 g/dl (12.0-16.0); Imm Gran Abs Auto 0.02 X10*3/uL (0.00-0.03); Imm Gran Pct Auto 0.2 % (0.0-0.4); Mean Corpuscular HGB Conc 32.4 g/dl (31.0-35.0); Mean Corpuscular Hemoglobin 28.2 pg (27.0-33.0); Mean Corpuscular Volume 87.1 fL (80.0-98.0); Mean Platelet Volume 12.3 fL (9.4-12.3); Monocytes Absolute Auto 0.8 X10*3/uL (0.1-1.2); Monocytes Percent Auto 8.5 % (2-11); Neutrophils Absolute Auto 5.3 x10*3/uL (2.0-8.3); Neutrophils Percent Auto 56.5 % (45-73); Platelet Count 305 X10*3/uL (160-400); Red Blood Count 4.89 X10*6/uL (4.20-5.50); Red Cell Distribution Width 13.7 % (11.0-16.0); White Blood Count 9.3 X10*3/uL (4.8-10.8)
[2022-01-02 11:50] LABS: INTERNATIONAL NORM RATIO 0.9 (0.9-1.1); Prothrombin Time 10.7 SEC (10.0-13.1)
[2022-01-02 12:14] LABS: Anion Gap 14 (12-20); Blood Urea Nitrogen 14 mg/dL (9-16); Calcium 9.1 mg/dL (8.4-10.2); Carbon Dioxide 25 mmol/L (22-29); Chloride 107 mmol/L (96-108); Estimated Glomerular Filt Rate 58; Glucose Random 146 mg/dL (60-115); Potassium 4.3 mmol/L (3.3-5.1); Sodium 142 mmol/L (135-145)
== END 2022-01-02 11:02 | disposition home or self-care (01) ==
LOC: HO.LAB 11:01
PROVIDERS: PCP Internal Medicine; Visit Provider Nurse Practitioner Family
DX: R93.1 Abnormal findings on diagnostic imaging of heart and coronary circulation (principal); R94.39 Abnormal result of other cardiovascular function study
CPT/HCPCS: 36415; 80048; 85025; 85610

== ENCOUNTER → 2022-01-05 14:09 | Outpatient (BNVA) | payer OTHER, SELFPAY | PROVIDERS: PCP Internal Medicine; Visit Provider Registered Nurse Diabetes Educator | DX: Z46.81 Encounter for fitting and adjustment of insulin pump (principal); E11.65 Type 2 diabetes mellitus with hyperglycemia; Z79.4 Long term (current) use of insulin | CPT/HCPCS: 99211 ==

== ENCOUNTER 2022-02-14 10:02 | Outpatient (REF) | payer OTHER, SELFPAY ==
[2022-02-14 10:49] LABS: Appearance Urine Clear; Color Urine Yellow; Glucose Urine UA Negative (Negative); Leukocyte Esterase Urine Moderate (2+) (Negative); Nitrite Urine Negative (Negative); PH 5.5 (5.0-9.0); Specific Gravity - Urine 1.015 (1.005-1.025); UMIC TRIGGER UA YES; Urine Blood Small (1+) (Negative); Urine Ketones Negative (Negative); Urine Protein Trace mg/dL (Neg-Trace)
[2022-02-14 11:07] LABS: Bacteria Urine 4+ (None Seen); Hyaline Casts Urine 0-2 /LPF (0-2); Squamous Epithelial Cell Urine 0-2 /HPF (0-2); WBC Urine >50 /HPF (0-5)
== END 2022-02-14 10:03 | disposition home or self-care (01) ==
LOC: HO.LAB 10:02
PROVIDERS: PCP Internal Medicine; Visit Provider Urology
DX: N39.0 Urinary tract infection, site not specified (principal)
CPT/HCPCS: 81001; 87086; 87088; 87186

== ENCOUNTER → 2022-02-21 13:29 | Outpatient (BNVA) | payer OTHER, SELFPAY | PROVIDERS: PCP Internal Medicine; Referring Provider Internal Medicine; Visit Provider Internal Medicine | DX: I25.10 Atherosclerotic heart disease of native coronary artery without angina pectoris (principal); I10 Essential (primary) hypertension; E11.65 Type 2 diabetes mellitus with hyperglycemia | CPT/HCPCS: 93005; 99212 ==

== ENCOUNTER → 2022-03-02 14:22 | Outpatient (BNVA) | payer OTHER, SELFPAY | PROVIDERS: PCP Internal Medicine; Referring Provider Internal Medicine; Visit Provider Nurse Practitioner Family | DX: K21.9 Gastro-esophageal reflux disease without esophagitis (principal); K59.04 Chronic idiopathic constipation | CPT/HCPCS: 99212 ==

== ENCOUNTER → 2022-03-09 15:04 | Outpatient (BNVA) | payer OTHER, SELFPAY | PROVIDERS: PCP Internal Medicine; Visit Provider Registered Nurse Diabetes Educator | DX: E11.65 Type 2 diabetes mellitus with hyperglycemia (principal); E11.40 Type 2 diabetes mellitus with diabetic neuropathy, unspecified; Z79.4 Long term (current) use of insulin; Z96.41 Presence of insulin pump (external) (internal); Z46.81 Encounter for fitting and adjustment of insulin pump | CPT/HCPCS: 99211 ==

== ENCOUNTER → 2022-03-13 13:19 | Outpatient (REF) | payer OTHER, SELFPAY ==
--- NOTE | 2022-03-13 13:23 | CA_ITS ---
Transthoracic Echocardiogram Patient (Last, First, Middle): Mayela Brennan T Gender: Female Date of : 1965 Age: 56 Procedure Date: 03/13/2022 Procedure Type: Transthoracic Echocardiogram Location: OP Height: 157.48 cm Weight: 72.12 kg BSA: 1.73 m2 Heart Rate: bpm BP: 122 / 60 mmHg Rat Farmer: Referring MD: Chuckie New MD Receiving Inspector: Francisco Baer MD Symptoms: I25.10 - Atherosclerotic heart disease of [place] coronary artery without... Study Quality: Adequate w Contrast ECG Rhythm: Sinus Conclusions: - 1. [id number] LV systolic dysfunction with LVEF of 40-45% with regional wall motion abnormality suggestive of ischemic cardiomyopathy with pseudonormal filling pattern 2. Normal cardiac valvular Doppler 3. Normal RV systolic pressure 4. No gross pericardial effusion Findings Procedure Information Contrast agent, definity, is being given per protocol without apparent complications. Left Ventricle Normal left ventricular cavity size. There is normal left ventricular wall thickness. The left ventricular systolic function is mild to moderately decreased. The visually estimated ejection fraction is between 40-45%. Spectral Doppler is indicative of a pseudonormal filling pattern. E/E prime ratio is between 8 and 15 consistent with indeterminate filling pressures. Wall Motion Rest Echo Findings The apical septum and basal anteroseptal segments are hypokinetic. The inferoseptal wall and mid anteroseptal segment are akinetic. All other scored wall segments showed normal motion. Right Ventricle Normal right ventricular cavity size and systolic function. Atria The left atrium is likely dilated. Interatrial shunt cannot be excluded. The right atrium is normal in size. Aortic Valve The aortic valve structure and function is likely normal. There is no aortic valve stenosis. There is no aortic valve regurgitation. Mitral Valve Normal mitral valve structure and function. There is trace mitral valve regurgitation. There is no mitral valve stenosis. Pulmonic Valve The pulmonic valve was not well visualized. Tricuspid Valve Likely normal tricuspid valve structure and function. There is trace tricuspid valve regurgitation. The right ventricular systolic pressure is normal. The right ventricular systolic pressure is 18 mmHg. Normal right atrial pressure. There is no evidence of pulmonary hypertension. Great Vessels All visible segments of the aorta are normal in size. The pulmonary artery was not well visualized. Venous The inferior vena cava is normal in size and collapses greater than 50% with inspiration. Pericardium/Pleural There is no evidence of pericardial effusion. Prior Study Comparison Changes noted compared to prior study dated: 04/29/2020. LV systolic function is mildly depressed compared to prior study Measurements 2D Linear Measurements IVSd: 1.02 0.6-0.9/0.6-1.0 cm LVIDd: 4.67 3.9-5.3/4.2-5.9 cm LVIDd Index: 2.70 2.4-3.2/2.2-3.1 cm/m2 LVIDs: 3.64 2.0-3.6 cm LVPWd: 1.02 0.7-1.1 cm Ao Root: 3.00 2.1-3.5 cm LA Diam: 4.20 2.7-3.8/3.0-4.0 cm LAIDs Index: 2.43 1.5-2.3 cm/m2 LV Mass: 208.27 67-162/88-224 g LV Mass Index: 120.39 43-95/49-115 g/m2 LVOT Diam: 2.30 3.0+(-)1.3 cm 2D Systolic Function EF 4C: 39.80 >55% EF 2C: 41.60 >55% EF BiP: 41.10 >55% Mitral Valve MV Pk E: 0.79 MV PK A: 0.64 MV Decel Time: 149.00 E/A: 1.20 E'Lateral: 5.66 E'Medial: 4.08 E/E' Med: 19.30 E/E' Lat: 13.90 PHT: 44.00 MVA PHT: 5.00 Decel [place]: 5.30 Aortic Valve AoV Pk Javier: 1.15 AoV Mn Javier: 0.77 AoV VTI: 0.24 AoV Pk Grad: 5.00 Aov Mn Grad: 3.00 COLTON Cont.VTI: 2.97 LVOT LVOT Pk Javier: 0.78 LVOT Mn Javier: 0.57 LVOT VTI: 0.17 LVOT Pk Grad: 2.00 LVOT Mn Grad: 2.00 LVOT Diam: 2.30 LVOT Area: 4.15 Diastolic Function MV Pk E: 0.79 MV Pk A: 0.64 E/A: 1.20 E'Medial: 4.08 E/E' Med: 19.30 E' Laterial: 5.66 E/E' Lat: 13.90 Tricuspid Valve TR Pk Javier: 1.91 TR Pk Grad: 15.00 RA Press: 3.00 RVSP: 18.00 Great Vessels Aorta Ao Root-2D: 3.00 2.0-3.7 cm Ao Asc: 3.60 2.1-3.4 cm Pulmonary Valve PV Pk Javier: 1.04 Peak PV Grad: 4.00 Updated in Other Vendor System with Status of Final Francisco Baer MD electronically signed on 03/14/2022 9:10:09 AM with status of Final
== END ==
LOC: HO.CARD 13:19
PROVIDERS: PCP Internal Medicine; Visit Provider Internal Medicine
DX: I25.10 Atherosclerotic heart disease of native coronary artery without angina pectoris (principal)
CPT/HCPCS: 93306; Q9957

== ENCOUNTER → 2022-03-14 14:51 | Outpatient (BNVA) | payer OTHER, SELFPAY | PROVIDERS: PCP Internal Medicine; Visit Provider Internal Medicine Endocrinology, Diabetes & Metabolism | DX: E11.42 Type 2 diabetes mellitus with diabetic polyneuropathy (principal); Z79.4 Long term (current) use of insulin; Z96.41 Presence of insulin pump (external) (internal) | CPT/HCPCS: 82947; 99212 ==

== ENCOUNTER 2022-05-07 06:17 | Outpatient (REF) | payer OTHER, SELFPAY ==
[2022-04-26 13:00] VITALS: BP 104/60; BP 132/58
[2022-05-07 06:24] LABS: MANUAL DIFF FLAG NO
[2022-05-07 07:57] LABS: Appearance Urine Cloudy; Color Urine Yellow; Glucose Urine UA >=1000 mg/dL (Negative); Leukocyte Esterase Urine Trace (Negative); Nitrite Urine Negative (Negative); Specific Gravity - Urine >= 1.030 (1.005-1.025); UMIC TRIGGER UA YES; UMIC TRIGGER UACC YES; Urine Blood Trace (Negative); Urine Ketones Negative (Negative); Urine Protein 30 (1+) mg/dL (Neg-Trace)
[2022-05-07 08:00] LABS: Basophils Absolute Auto 0.1 X10*3/uL (0.0-0.2); Basophils Percent Auto 0.8 % (0-2); Eosinophils Absolute Auto 0.2 X10*3/uL (0.0-0.4); Eosinophils Percent Auto 2.3 % (0-4); Hematocrit 39.9 % (37.0-47.0); Hemoglobin 12.6 g/dl (12.0-16.0); Imm Gran Abs Auto 0.03 X10*3/uL (0.00-0.03); Imm Gran Pct Auto 0.3 % (0.0-0.4); Lymphocytes Absolute Auto 2.5 X10*3/uL (1.2-4.9); Lymphocytes Percent Auto 25.2 % (20-40); Mean Corpuscular HGB Conc 31.6 g/dl (31.0-35.0); Mean Corpuscular Hemoglobin 26.7 pg (27.0-33.0); Mean Corpuscular Volume 84.5 fL (80.0-98.0); Mean Platelet Volume 11.1 fL (9.4-12.3); Monocytes Absolute Auto 0.8 X10*3/uL (0.1-1.2); Monocytes Percent Auto 8.6 % (2-11); Neutrophils Absolute Auto 6.1 x10*3/uL (2.0-8.3); Neutrophils Percent Auto 62.8 % (45-73); Platelet Count 395 X10*3/uL (160-400); Red Blood Count 4.72 X10*6/uL (4.20-5.50); Red Cell Distribution Width 15.9 % (11.0-16.0); White Blood Count 9.8 X10*3/uL (4.8-10.8)
[2022-05-07 08:05] LABS: Bacteria Urine 4+ (None Seen); Hyaline Casts Urine 0-2 /LPF (0-2); RBC Urine 0-2 /HPF (0-2); Squamous Epithelial Cell Urine 0-2 /HPF (0-2); UACC Culture Trigger YES; WBC Urine >50 /HPF (0-5)
[2022-05-07 08:18] LABS: B Type Natriuretic Peptide 25 pg/mL (<100)
[2022-05-07 08:20] LABS: Estimated Average Glucose 171 mg/dL; Hemoglobin A1c % 7.6 %
[2022-05-07 08:39] LABS: Creatinine Urine 64.87 mg/dL; Microalbum/Creatinine Ratio Ur 115.6 ug/mg cr
[2022-05-07 09:03] LABS: Ferritin 79 ng/mL (10-250); Free T4 (Free Thyroxine) 1.64 ng/dL (0.71-1.85); Thyroid Stimulating Hormone 1.24 uIU/mL (0.32-4.0)
[2022-05-07 09:10] LABS: Alanine Aminotransferase 37 U/L (0-31); Albumin Level 4.4 g/dL (3.5-5.0); Alkaline Phosphatase 80 U/L (39-117); Anion Gap 14 (12-20); Aspartate Amino Transferase 30 U/L (5-31); Bilirubin Total 0.4 mg/dL (0.0-1.0); Blood Urea Nitrogen 23 mg/dL (9-16); Calcium 9.8 mg/dL (8.4-10.2); Carbon Dioxide 27 mmol/L (22-29); Chloride 103 mmol/L (96-108); Cholesterol 110 mg/dL; Estimated Glomerular Filt Rate 38; Glucose Random 161 mg/dL (60-115); HDL Cholesterol 43 mg/dL; LDL Cholesterol Calculated 50 mg/dl; Magnesium 2.2 mg/dL (1.6-2.6); Phosphorus 4.8 mg/dL (2.7-4.5); Sodium 140 mmol/L (135-145); Total Protein 7.4 g/dL (6.5-8.0); Triglycerides 89 mg/dL
[2022-05-07 09:23] LABS: Folate 8.2 ng/mL (> or = 4.0); Vitamin B12 384 pg/mL (200-900)
== END 2022-05-07 06:18 | disposition home or self-care (01) ==
LOC: HO.LAB 06:17
PROVIDERS: PCP Internal Medicine; Visit Provider Internal Medicine Endocrinology, Diabetes & Metabolism
DX: E11.42 Type 2 diabetes mellitus with diabetic polyneuropathy (principal); E11.65 Type 2 diabetes mellitus with hyperglycemia; E89.0 Postprocedural hypothyroidism; E78.00 Pure hypercholesterolemia, unspecified; I25.10 Atherosclerotic heart disease of native coronary artery without angina pectoris
CPT/HCPCS: 36415; 80053; 80061; 81001; 82043; 82306; 82607; 82728; 82746; 83036; 83735; 83880; 84100; 84439; 84443; 85025; 87086; 99211

== ENCOUNTER 2022-05-23 15:53 | Outpatient (REF) | payer OTHER, SELFPAY ==
[2022-04-26 13:00] VITALS: BP 104/60; BP 132/58
--- NOTE | ~2022-05-23 | US_ITS ---
EXAMINATION: US RETROPERITONEAL LIMITED (RENAL ONLY) CLINICAL INFORMATION: Calculus of kidney. COMPARISON: Ultrasound retroperitoneal limited (renal only) 11/22/2021 and 05/01/2021. CT abdomen and pelvis without contrast 02/14/2021. TECHNIQUE: Real-time imaging of the kidneys. FINDINGS: RIGHT KIDNEY: 11.5 x 4.6 x 5.8 cm (SAG x AP x TRV). The kidney is normal in size and echogenicity. Lobular renal contour with areas of renal cortical thinning consistent with scarring. No focal parenchymal lesions or hydronephrosis. 6 mm echogenic shadowing right upper pole calculus. 5 mm echogenic shadowing right lower pole calculus. LEFT KIDNEY: 13.7 x 6.4 x 5.8 cm (SAG x AP x TRV). The kidney is normal in size and echogenicity. Lobular renal contour consistent with areas of scarring. No focal parenchymal lesions or hydronephrosis. 1.1 cm echogenic, shadowing left upper pole calculus. 1.2 cm echogenic shadowing left mid renal calculus. 8mm left lower pole renal calculus. BLADDER: Bilateral ureteral jets are demonstrated. US/US renal BI IMPRESSION: Bilateral nonobstructing renal calculi. No hydronephrosis. Lobular renal contour bilaterally with areas of renal cortical thinning consistent with areas of scarring.
== END 2022-05-23 15:54 | disposition home or self-care (01) ==
LOC: HO.US 15:53
DX: N20.0 Calculus of kidney (principal)
CPT/HCPCS: 76775

== ENCOUNTER 2022-06-11 15:30 | Outpatient (REF) | payer OTHER, SELFPAY ==
[2022-04-26 13:00] VITALS: BP 104/60; BP 132/58
[2022-05-15 09:28] VITALS: BP 104/54; BMI 30.6
== END 2022-06-11 15:31 | disposition home or self-care (01) ==
LOC: HO.LAB 15:30
PROVIDERS: PCP Internal Medicine; Visit Provider Nurse Practitioner Family
DX: N39.0 Urinary tract infection, site not specified (principal); N20.0 Calculus of kidney; R32 Unspecified urinary incontinence; Z79.01 Long term (current) use of anticoagulants; Z79.899 Other long term (current) drug therapy
CPT/HCPCS: 87086; 87088; 87186; 99212

== ENCOUNTER → 2022-06-18 15:23 | Outpatient (BNVA) | payer OTHER, SELFPAY ==
[2022-04-26 13:00] VITALS: BP 104/60; BP 132/58
[2022-05-15 09:28] VITALS: BP 104/54; BMI 30.6
== END ==
PROVIDERS: PCP Internal Medicine; Referring Provider Internal Medicine; Visit Provider Internal Medicine
DX: I25.10 Atherosclerotic heart disease of native coronary artery without angina pectoris (principal); I10 Essential (primary) hypertension; E11.65 Type 2 diabetes mellitus with hyperglycemia
CPT/HCPCS: 93005; 99212

== ENCOUNTER → 2022-06-29 15:56 | Outpatient (BNVA) | payer OTHER, SELFPAY ==
[2022-06-22 16:49] VITALS: BP 104/60; BP 112/56; BP 132/58; BMI 31.3
== END ==
PROVIDERS: PCP Internal Medicine; Visit Provider Nurse Practitioner Family
DX: K59.04 Chronic idiopathic constipation (principal); K21.9 Gastro-esophageal reflux disease without esophagitis
CPT/HCPCS: 99212

== ENCOUNTER → 2022-08-08 15:29 | Outpatient (BNVA) | payer OTHER, SELFPAY ==
[2022-06-22 16:49] VITALS: BP 104/60; BP 112/56; BP 132/58; BMI 31.3
== END ==
PROVIDERS: PCP Internal Medicine; Visit Provider Nurse Practitioner Family
DX: N20.0 Calculus of kidney (principal); N39.0 Urinary tract infection, site not specified
CPT/HCPCS: 51798; 99212

== ENCOUNTER → 2022-08-24 07:18 | Day surgery (SDC) | payer OTHER, SELFPAY ==
[2022-06-22 16:49] VITALS: BP 104/60; BP 112/56; BP 132/58; BMI 31.3
== END ==
PROVIDERS: PCP Internal Medicine; Visit Provider Internal Medicine Gastroenterology
DX: Z12.11 Encounter for screening for malignant neoplasm of colon (principal); Z53.20 Procedure and treatment not carried out because of patient's decision for unspecified reasons

== ENCOUNTER → 2022-09-18 11:32 | Outpatient (BNVA) | payer OTHER, SELFPAY ==
[2022-06-22 16:49] VITALS: BP 104/60; BP 112/56; BP 132/58; BMI 31.3
== END ==
PROVIDERS: PCP Internal Medicine; Visit Provider Registered Nurse Diabetes Educator
DX: Z46.81 Encounter for fitting and adjustment of insulin pump (principal); E11.65 Type 2 diabetes mellitus with hyperglycemia
CPT/HCPCS: 99211

== ENCOUNTER → 2022-09-28 15:02 | Outpatient (BNVA) | payer OTHER, SELFPAY ==
[2022-06-22 16:49] VITALS: BP 104/60; BP 112/56; BP 132/58; BMI 31.3
== END ==
PROVIDERS: PCP Internal Medicine; Referring Provider Internal Medicine; Visit Provider Nurse Practitioner Family
DX: K59.04 Chronic idiopathic constipation (principal); K21.9 Gastro-esophageal reflux disease without esophagitis
CPT/HCPCS: 99212

== ENCOUNTER 2022-10-05 14:52 | Outpatient (REF) | payer OTHER, SELFPAY ==
--- NOTE | ~2022-10-05 | MM_ITS ---
EXAMINATION: MM SCREENING DIGITAL BREAST TOMOSYNTHESIS, BILATERAL CLINICAL INFORMATION: Screening. Asymptomatic. The lifetime risk of breast cancer based on the Tyrer-Cuzick Model is 7%. COMPARISON: Mammography: 09/29/2021, 09/27/2020, outside mammography 07/10/2018 ([place]). TECHNIQUE: Digital breast tomosynthesis is performed in both the craniocaudal and mediolateral oblique views along with computer-aided detection (CAD). Synthesized 2D images are generated from the tomosynthesis. Additional bilateral CC and left MLO views are provided. FINDINGS: There are scattered areas of fibroglandular density (ACR BI-RADS breast composition Category b). Parenchymal pattern is similar to prior exam and there is no developing density or interval mass or architectural abnormality. There are scattered bilateral vascular calcifications. The axilla and skin contours are unremarkable. MM/MM tomosynthesis screening BI IMPRESSION: No significant changes from prior exams. ASSESSMENT: BI-RADS 2: Benign RECOMMENDATION: Routine annual mammography screening. This patient's information was entered into a reminder system with a target due date for their next mammogram.
== END 2022-10-05 14:53 | disposition home or self-care (01) ==
LOC: HO.MAMMO 14:52
PROVIDERS: PCP Internal Medicine; Visit Provider Internal Medicine
DX: Z12.31 Encounter for screening mammogram for malignant neoplasm of breast (principal)
CPT/HCPCS: 77063; 77067

== ENCOUNTER → 2022-10-11 08:00 | Outpatient (BNVA) | payer OTHER, SELFPAY ==
[2022-09-28 15:43] VITALS: BP 104/60; BP 112/56; BP 132/58; BMI 31.3
== END ==
PROVIDERS: PCP Internal Medicine; Visit Provider Internal Medicine Endocrinology, Diabetes & Metabolism
DX: E11.42 Type 2 diabetes mellitus with diabetic polyneuropathy (principal); Z96.41 Presence of insulin pump (external) (internal)
CPT/HCPCS: 82947; 99212

== ENCOUNTER 2022-10-20 20:53 | Emergency (ER) | payer OTHER, SELFPAY ==
[2022-09-28 15:43] VITALS: BP 104/60; BP 112/56; BP 132/58; BMI 31.3
--- NOTE | ~2022-10-20 | CT_ITS ---
EXAMINATION: CT ABDOMEN AND PELVIS WITHOUT CONTRAST CLINICAL INFORMATION: Reason for Exam R flank pain. COMPARISON: No pertinent prior studies are available for comparison. TECHNIQUE: Multidetector volumetric imaging was performed from the superior aspect of the liver through the pubic symphysis without contrast per renal stone protocol. Sagittal and coronal reformatted images were obtained on the technologist workstation. This CT examination was performed using dose optimization techniques as appropriate, variously including the following: *Automated exposure control *Adjustment of mA and/or kV according to patient size (this includes techniques or standardized protocols for targeted exams where dose is matched to indication/reason for exam; i.e. extremities or head) *Use of iterative reconstruction technique DLP: 559 mGy-cm. FINDINGS: LUNG BASES: Minimal dependent atelectasis. Small hiatal hernia. Status post sternotomy LIVER, GALLBLADDER, BILIARY TREE: The non-contrast liver is normal in size, shape, and attenuation. No focal hepatic lesion or biliary ductal dilatation is present. The gallbladder is unremarkable with no evidence of radiopaque gallstones, gallbladder wall thickening, or obvious pericholecystic inflammatory changes. PANCREAS: Unremarkable. SPLEEN: Unremarkable. ADRENAL GLANDS: Unremarkable. KIDNEYS AND URETERS: Multiple bilateral intrarenal calculi are again seen. There is fullness to the right collecting system and right ureter able to be followed to the bladder without obvious ureteric calculi. Recently passed calculi could have this appearance and should be clinically correlated. BLADDER: No intraluminal calculi. Bladder is decompressed GASTROINTESTINAL TRACT: The small and large bowel are unremarkable. The appendix is unremarkable. ABDOMINAL WALL: No significant hernia is appreciated. LYMPHOVASCULAR STRUCTURES: No lymphadenopathy. The aorta is unremarkable.. PELVIC VISCERA: Unremarkable. OSSEUS STRUCTURES: Unremarkable. CT/CT abdomen pelvis wo IV con IMPRESSION: Multiple bilateral intrarenal calculi are again seen. There is fullness to the right collecting system and right ureter able to be followed to the bladder without obvious ureteric calculi. Recently passed calculi could have this appearance and should be clinically correlated.
[2022-10-20 20:58] VITALS: BP 129/55; PULSE 88; RESP 16; TEMP 37.7; O2SAT 95; BMI 31.6
[2022-10-20 21:23] LABS: Basophils Absolute Auto 0.1 X10*3/uL (0.0-0.2); Basophils Percent Auto 0.5 % (0-2); Eosinophils Percent Auto 0.3 % (0-4); Hematocrit 40.2 % (37.0-47.0); Hemoglobin 12.9 g/dl (12.0-16.0); Imm Gran Abs Auto 0.04 X10*3/uL (0.00-0.03); Imm Gran Pct Auto 0.3 % (0.0-0.4); Lymphocytes Absolute Auto 2.9 X10*3/uL (1.2-4.9); Lymphocytes Percent Auto 19.4 % (20-40); MANUAL DIFF FLAG SCAN; Mean Corpuscular HGB Conc 32.1 g/dl (31.0-35.0); Mean Corpuscular Hemoglobin 27.6 pg (27.0-33.0); Mean Corpuscular Volume 86.1 fL (80.0-98.0); Mean Platelet Volume 10.9 fL (9.4-12.3); Monocytes Absolute Auto 1.8 X10*3/uL (0.1-1.2); Monocytes Percent Auto 12.3 % (2-11); Neutrophils Percent Auto 67.2 % (45-73); Platelet Count 309 X10*3/uL (160-400); Red Blood Count 4.67 X10*6/uL (4.20-5.50); SCAN SMEAR FLAG 1; White Blood Count 14.9 X10*3/uL (4.8-10.8)
[2022-10-20 21:25] LABS: Appearance Urine Clear; Color Urine Yellow; Glucose Urine UA >=1000 mg/dL (Negative); Leukocyte Esterase Urine Small (1+) (Negative); Nitrite Urine Negative (Negative); PH 6.5 (5.0-9.0); Specific Gravity - Urine 1.015 (1.005-1.025); UMIC TRIGGER UACC YES; Urine Blood Trace (Negative); Urine Ketones Negative (Negative); Urine Protein 30 (1+) mg/dL (Neg-Trace)
[2022-10-20 21:43] LABS: SLIDE REVIEW VERIFIED
[2022-10-20 21:46] LABS: Alanine Aminotransferase 25 U/L (0-31); Albumin Level 4.1 g/dL (3.5-5.0); Alkaline Phosphatase 67 U/L (39-117); Anion Gap 16 (12-20); Aspartate Amino Transferase 30 U/L (5-31); Bilirubin Total 0.6 mg/dL (0.0-1.0); Blood Urea Nitrogen 19 mg/dL (9-16); Calcium 9.5 mg/dL (8.4-10.2); Carbon Dioxide 23 mmol/L (22-29); Chloride 103 mmol/L (96-108); Estimated Glomerular Filt Rate 41; Glucose Random 83 mg/dL (60-115); Potassium 4.3 mmol/L (3.3-5.1); Sodium 138 mmol/L (135-145); Total Protein 7.6 g/dL (6.5-8.0)
--- NOTE | 2022-10-20 21:52 | ED.FEMALEGU ---
HPI - Female Genitourinary General Chief complaint: Urogenital-Female Stated complaint: ?kidney stone Time Seen by Provider: 10/20/22 21:44 Source: patient Mode of arrival: ambulatory Limitations: no limitations History of Present Illness HPI Narrative: Patient comes in the emergency room complaining of 2 days of right-sided flank pain, intermittent, sharp radiating from the flank to the right lower quadrant. Patient denies hematuria or dysuria. Patient states that she has history of kidney stones, states that she has also had history of UTI and pyelonephritis. Patient denies fever chills, denies nausea vomiting or diarrhea Related Data Home Medications Medication Instructions Recorded Confirmed insulin syringe-needle U-100 1 mL #10 ea 03/14/22 10/11/22 31 gauge x 5/16 (BD Insulin Syringe Ultra-Fine) Previous Rx's Medication Instructions Recorded blood-glucose meter,continuous #1 ea 07/13/21 (Dexcom G6 Recreational Therapy Technician) blood-glucose sensor (Dexcom G6 #3 ea 07/13/21 Sensor device) blood-glucose transmitter (Dexcom #1 ea 07/13/21 G6 Transmitter device) aspirin 81 mg tablet,delayed 81 mg PO DAILY 90 days #90 tabs 08/14/21 release insulin aspart U-100 100 unit/mL See Rx Instructions subcut DAILY 09/22/21 subcutaneous solution 30 days #50 mL blood sugar diagnostic (FreeStyle #100 strips 09/23/21 Lite Strips) levothyroxine 125 mcg tablet 125 mcg PO DAILY #30 tabs 09/27/21 ezetimibe 10 mg tablet 10 mg PO DAILY 90 days #90 tabs 02/05/22 metoprolol tartrate 25 mg tablet 25 mg PO BID 90 days #180 tabs 02/05/22 blood pressure monitor (Blood #1 ea 03/02/22 Pressure Kit) docusate sodium 100 mg capsule 100 mg PO BEDTIME #90 caps 03/02/22 empagliflozin 10 mg tablet 10 mg PO DAILY #30 tabs 03/14/22 (Jardiance) rosuvastatin 40 mg tablet 40 mg PO BEDTIME 90 days #90 tabs 03/22/22 metformin 500 mg tablet,extended 500 mg PO BID 90 days #180 tabs 05/24/22 release 24 hr estradiol 0.01% (0.1 mg/gram) See Rx Instructions vaginal DAILY 06/11/22 vaginal cream 30 days #42.5 grams pyridoxine (vitamin B6) 100 mg 100 mg PO DAILY 90 days #90 tabs 06/11/22 tablet nitrofurantoin 100 mg PO BID UTI 10 days #20 caps 07/16/22 monohydrate/macrocrystals 100 mg capsule (Macrobid) cholecalciferol (vitamin D3) 1,250 1,250 mcg PO QWEEK #4 caps 08/02/22 mcg (50,000 unit) capsule clopidogrel 75 mg tablet 75 mg PO DAILY 90 days #90 tabs 08/20/22 furosemide 40 mg tablet 40 mg PO DAILY 90 days #90 tabs 08/20/22 amlodipine 5 mg tablet 5 mg PO DAILY 90 days #90 tabs 09/19/22 pantoprazole 40 mg tablet,delayed 40 mg PO DAILY #90 tabs 09/28/22 release polyethylene glycol 3350 17 gram 17 g PO DAILY #100 ea 09/28/22 oral powder packet (Miralax) sennosides 8.6 mg tablet (Natural 8.6 mg PO BEDTIME constipation #90 09/28/22 Senna Laxative) tabs levofloxacin 500 mg tablet 500 mg PO DAILY #9 tabs 10/20/22 tramadol 50 mg tablet 50 mg PO BID PRN pain #7 tabs 10/20/22 Allergies Allergy/AdvReac Type Severity Reaction Status Date / Time dulaglutide [From TRULICITY] Allergy Unknown DIARRHEA Verified 10/20/22 20:58 AND VOMITTING liraglutide [From VICTOZA] Allergy Unknown DIARRHEA Verified 10/20/22 20:58 AND VOMITTING, vomiting and diahrrea Review of Systems Review of Systems: Constitutional : No Weight loss, No Fever, No Chills, No Night Sweats, No Fatigue, No Malaise ENT/Mouth : No Hearing loss, No Ear Pain, No Nasal Congestion, No Sinus Pain, No Hoarseness, No sore throat, No Rhinorrhea, No Swallowing Difficulty Eyes: No Eye Pain, No Swelling, No Redness, No Foreign Body, No Discharge, No Vision Changes Cardiovascular : No Chest Pain, No SOB, No Dyspnea on Exertion, No Orthopnea, No Edema, No Palpitations Respiratory : No Cough, No Sputum, No Wheezing, No Smoke Exposure, No Dyspnea Gastrointestinal : No Nausea, No Vomiting, No Diarrhea, No Constipation, No abdominal Pain, No Hematochezia, No Melena Genitourinary : no irregular bleeding, No Dysuria, No Urinary Frequency, No Hematuria, No Urinary Incontinence, No Urgency, complaining of right Flank Pain, No Urinary Flow Changes, No Hesitancy Musculoskeletal : No joint pain, No Myalgias, No Joint Swelling Skin : No Skin Lesions, No rash Neuro : No Weakness, No Numbness, No Paresthesias, No Loss of Consciousness, No Dizziness, No Headache Psych : No Anxiety/Panic, No Depression, No SI/HI/AH/VH, No Social Issues, Heme/Lymph: No Bruising, No Bleeding,No Lymphadenopathy Endocrine : No Polyuria, No Polydipsia, No Temperature Intolerance [facility] Past Medical History Medical History Arthritis Bacterial conjunctivitis of both eyes Carpal tunnel syndrome Coronary artery disease Depression Essential hypertension History of Clostridium difficile infection Hypercholesterolemia Kidney stone Left navicular fracture of foot Postsurgical hypothyroidism Thyroid nodule Type 2 diabetes mellitus with diabetic polyneuropathy Type 2 diabetes mellitus with hyperglycemia Vitamin B12 deficiency Vitamin D deficiency Well woman exam Surgical History History of renal stent Hx of section Hx of colonoscopy Hx of myomectomy Hx of thyroidectomy Hx of toe surgery Hx of tonsillectomy S/P triple vessel bypass Family History Family History Father DM (diabetes mellitus) Hypertension High cholesterol Spina bifida Kidney stone CAD (coronary artery disease) Mother DM (diabetes mellitus) Hypertension High cholesterol CAD (coronary artery disease) Bipolar 1 disorder Maternal Aunt Lung cancer Maternal Grandfather Lung cancer Social History Social History Household Members: Children Household Members Other:: daughter Housing: Apartment Do you presently have visiting nurse or other home services: No Alcohol intake: never Patient Tobacco Use Status: Never used Tobacco e-Cigarette/Vaping Use: Never Used Second Hand Smoke Exposure: No Advance Directives: No Advance Directives Information Provided: No service: No Current occupational status: employed Cognitive needs: No Hearing needs: No Vision needs: Yes Physical Exam Vital Signs: Vital Signs: Last Vital Signs Temp 100 F 10/20/22 20:58 Pulse 79 10/20/22 22:41 Resp 18 10/20/22 22:41 BP 139/70 10/20/22 22:41 Pulse Ox 91 L 10/20/22 22:41 O2 Del Method Room Air 10/20/22 22:41 BMI result Body Mass Index 31.6 Const: Other: Appearance: Alert. Oriented X3. No acute distress. Eyes: Pupils equal, round and reactive to light. ENT: Pharynx normal. Neck: Normal inspection. Neck supple. No lymph nodes noted. No crepitus CVS: Normal heart rate and rhythm. Pulses normal. Normal S1 and S2 Respiratory: No respiratory distress. Breath sounds normal. No Wheezing. No rales Abdomen: Soft and nontender. No rigidity. No distention. Mild CVA tenderness Skin: Skin warm and dry. Normal skin color. Normal skin turgor. Extremities: No lower extremity edema. No Lacerations. No Rash Neuro: Oriented X 3. No motor deficit. No sensory deficit. Moving all extremities. No slurred speech. CN 2 through 12 grossly intact Psych: calm, cooperative, normal affect Course Course Course Narrative: all Off patient's labs and imaging pending Medical Decision Making Medical Decision Making [facility] Narrative: -I discussed the labs and imaging with the patient. It is possible that patient may have had a renal colic secondary to passing a stone. At this time, no ureterolithiasis. -patient does have a mild UTI, we will go ahead and treat, 1st dose of antibiotic given in the emergency room, Levaquin and tramadol were given. Clinically, this is pyelonephritis. However, sepsis not suspected, blood pressure 139/70, heart rate 79, no fever -patient instructed to follow-up with her primary care physician Lab Data [facility] Lab Attestation statement: I reviewed the patient's lab results. 10/20/22 21:18 10/20/22 21:18 Labs: Lab Results 10/20/22 10/20/22 10/20/22 Range/Units 21:18 21:18 21:18 WBC 14.9 H (4.8-10.8) X10*3/uL RBC 4.67 (4.20-5.50) X10*6/uL Hgb 12.9 (12.0-16.0) g/dl Hct 40.2 (37.0-47.0) % MCV 86.1 (80.0-98.0) fL MCH 27.6 (27.0-33.0) pg MCHC 32.1 (31.0-35.0) g/dl RDW 15.0 (11.0-16.0) % Plt Count 309 (160-400) X10*3/uL MPV 10.9 (9.4-12.3) fL Immature Gran % (Auto) 0.3 (0.0-0.4) % Neut % (Auto) 67.2 (45-73) % Lymph % (Auto) 19.4 L (20-40) % [place] % (Auto) 12.3 H (2-11) % Eos % (Auto) 0.3 (0-4) % Baso % (Auto) 0.5 (0-2) % Lymph # (Auto) 2.9 (1.2-4.9) X10*3/uL [place] # (Auto) 1.8 H (0.1-1.2) X10*3/uL Eos # (Auto) 0.0 (0.0-0.4) X10*3/uL Baso # (Auto) 0.1 (0.0-0.2) X10*3/uL Abs Immat Gran (auto) 0.04 H (0.00-0.03) X10*3/uL Absolute Neuts (auto) 10.0 H (2.0-8.3) x10*3/uL Absolute Nucleated RBC 0.000 (0.0-0.012) X10*3/uL Nucleated RBC % (auto) 0.0 (0.0-0.2) /100WBC Smear Tech's Comments VERIFIED Sodium 138 (135-145) mmol/L Potassium 4.3 (3.3-5.1) mmol/L Chloride 103 (96-108) mmol/L Carbon Dioxide 23 (22-29) mmol/L Anion Gap 16 (12-20) BUN 19 H (9-16) mg/dL Creatinine 1.32 (0.5-1.4) mg/dL Estim Creat Clear Calc 45.0 Estimated GFR 41 Random Glucose 83 (60-115) mg/dL Calcium 9.5 (8.4-10.2) mg/dL Total Bilirubin 0.6 (0.0-1.0) mg/dL AST 30 (5-31) U/L ALT 25 (0-31) U/L Alkaline Phosphatase 67 (39-117) U/L Total Protein 7.6 (6.5-8.0) g/dL Albumin 4.1 (3.5-5.0) g/dL Urine Color Yellow Urine Appearance Clear Urine pH 6.5 (5.0-9.0) Ur Specific Alex 1.015 (1.005-1.025) Urine Protein 30 (1+) H (Neg-Trace) mg/dL Urine Glucose (UA) >=1000 H (Negative) mg/dL Urine Ketones Negative (Negative) mg/dL Urine Blood Trace H (Negative) Urine Nitrite Negative (Negative) Ur Leukocyte Esterase Small (1+) H (Negative) Urine RBC 0-2 (0-2) /HPF Urine WBC 11-20 H (0-5) /HPF Ur Squamous Epith Cells 0-2 (0-2) /HPF Urine Bacteria 4+ (None Seen) Hyaline Casts 0-2 (0-2) /LPF Radiology Impression Discussion of test interpretation with radiology: I have reviewed the radiologist's reading. Radiologist Impression: FINDINGS: LUNG BASES: Minimal dependent atelectasis. Small hiatal hernia. Status post sternotomy LIVER, GALLBLADDER, BILIARY TREE: The non-contrast liver is normal in size, shape, and attenuation. No focal hepatic lesion or biliary ductal dilatation is present.? The gallbladder is unremarkable with no evidence of radiopaque gallstones, gallbladder wall thickening, or obvious pericholecystic inflammatory changes. PANCREAS: Unremarkable. SPLEEN: Unremarkable. ADRENAL GLANDS: Unremarkable. KIDNEYS AND URETERS: Multiple bilateral intrarenal calculi are again seen. There is fullness to the right collecting system and right ureter able to be followed to the bladder without obvious ureteric calculi. Recently passed calculi could have this appearance and should be clinically correlated. BLADDER: No intraluminal calculi. Bladder is decompressed GASTROINTESTINAL TRACT: The small and large bowel are unremarkable. The appendix is unremarkable. ABDOMINAL WALL: No significant hernia is appreciated. LYMPHOVASCULAR STRUCTURES: No lymphadenopathy.? The aorta is unremarkable.. PELVIC VISCERA: Unremarkable. OSSEUS STRUCTURES: Unremarkable. CT/CT abdomen pelvis wo IV con IMPRESSION: Multiple bilateral intrarenal calculi are again seen. There is fullness to the right collecting system and right ureter able to be followed to the bladder without obvious ureteric calculi. Recently passed calculi could have this appearance and should be clinically correlated. ? Discharge Plan Discharge Clinical Impression: Ureteric colic, Pyelonephritis Patient Disposition: Home, Self-Care Instructions: Renal Colic (ED) Additional Instructions: Please follow-up with your primary care physician tomorrow. If you have any worsening or new symptoms, please return to the emergency room or call 911 Prescriptions: New levofloxacin 500 mg tablet 500 mg PO DAILY Qty: 9 0RF tramadol 50 mg tablet 50 mg PO BID PRN (Reason: pain) Qty: 7 0RF No Action (DME) Dexcom G6 Sensor Device See Rx Instructions .ROUTE .MEDSUPPLY Qty: 3 11RF Rx Instructions: As directed every 10 days (DME) Dexcom G6 Transmitter Device See Rx Instructions .ROUTE .MEDSUPPLY Qty: 1 0RF Rx Instructions: As directed one every 3 months (DME) Dexcom G6 Recreational Therapy Technician Misc See Rx Instructions .ROUTE .MEDSUPPLY Qty: 1 0RF Rx Instructions: As directed insulin aspart U-100 100 unit/mL solution See Rx Instructions subcut DAILY 30 Days Qty: 50 6RF Rx Instructions: Up to 150 units via pump subcut daily; (DME) FreeStyle Lite Strips Strip See Rx Instructions .ROUTE .COMPLEX Qty: 100 11RF Dose Instruction: DIRECTED THREE TIMES A DAY Rx Instructions: DIRECTED THREE TIMES A DAY (DME) blood pressure monitor [Blood Pressure Kit] Kit See Rx Instructions .ROUTE .MEDSUPPLY Qty: 1 0RF Rx Instructions: As directed rosuvastatin 40 mg tablet 40 mg PO BEDTIME 90 Days Qty: 90 1RF metformin 500 mg tablet extended release 24 hr 500 mg PO BID 90 Days Qty: 180 3RF Rx Instructions: PATIENT STATES THEY ARE CURRENTLY TAKING, REFILL HISTORY SUGGESTS NON-ADHERENCE nitrofurantoin monohyd/m-cryst [Macrobid] 100 mg capsule 100 mg PO BID 10 Days Qty: 20 0RF Rx Instructions: must administer with a meal/food cholecalciferol (vitamin D3) 1,250 mcg (50,000 unit) capsule 1,250 mcg PO QWEEK Qty: 4 2RF clopidogrel 75 mg tablet 75 mg PO DAILY 90 Days Qty: 90 1RF Rx Instructions: 12/2021 started furosemide 40 mg tablet 40 mg PO DAILY 90 Days Qty: 90 1RF amlodipine 5 mg tablet 5 mg PO DAILY 90 Days Qty: 90 1RF ezetimibe 10 mg tablet 10 mg PO DAILY 90 Days Qty: 90 2RF metoprolol tartrate 25 mg tablet 25 mg PO BID 90 Days Qty: 180 2RF aspirin 81 mg tablet,delayed release (DR/EC) 81 mg PO DAILY 90 Days Qty: 90 3RF (DME) insulin syringe-needle U-100 [BD Insulin Syringe Ultra-Fine] 1 mL 31 gauge x 5/16 syringe See Rx Instructions .ROUTE TID Qty: 10 Rx Instructions: As directed Jardiance 10 mg tablet 10 mg PO DAILY Qty: 30 5RF estradiol 0.01 % (0.1 mg/gram) cream See Rx Instructions vaginal DAILY 30 Days Qty: 42.5 0RF Rx Instructions: vaginally daily; pea sized amount to urethra 3 times a week pyridoxine (vitamin B6) 100 mg tablet 100 mg PO DAILY 90 Days Qty: 90 3RF levothyroxine 125 mcg tablet 125 mcg PO DAILY Qty: 30 11RF docusate sodium 100 mg capsule 100 mg PO BEDTIME Qty: 90 3RF pantoprazole 40 mg tablet,delayed release (DR/EC) 40 mg PO DAILY Qty: 90 2RF Rx Instructions: take one tablet half an hour before breakfast polyethylene glycol 3350 [Miralax] 17 gram powder in packet 17 g PO DAILY Qty: 100 3RF sennosides [Natural Senna Laxative] 8.6 mg tablet 8.6 mg PO BEDTIME Qty: 90 3RF
[2022-10-20 22:41] VITALS: BP 139/70; PULSE 79; RESP 18; O2SAT 91
[2022-10-20 22:43] LABS: Bacteria Urine 4+ (None Seen); Hyaline Casts Urine 0-2 /LPF (0-2); RBC Urine 0-2 /HPF (0-2); Squamous Epithelial Cell Urine 0-2 /HPF (0-2); UACC Culture Trigger YES
[2022-10-20] MEDS: levoFLOXacin 500 MG TABLET PO (23:31)
[2022-10-20] MEDS: traMADoL HCL 50 MG TABLET PO (23:31)
== END 2022-10-20 23:32 | disposition home or self-care (01) ==
PROVIDERS: Emergency Provider Emergency Medicine; PCP Internal Medicine
DX: N23 Unspecified renal colic (principal); N12 Tubulo-interstitial nephritis, not specified as acute or chronic; Z79.899 Other long term (current) drug therapy
CPT/HCPCS: 36415; 74176; 80053; 81001; 85025; 87086; 87088; 87186; 99284

== ENCOUNTER → 2022-11-14 15:26 | Outpatient (BNVA) | payer OTHER, SELFPAY ==
[2022-09-28 15:43] VITALS: BP 104/60; BP 112/56; BP 132/58; BMI 31.3
== END ==
PROVIDERS: Visit Provider Nurse Practitioner Family
DX: N20.0 Calculus of kidney (principal)
CPT/HCPCS: 99212

== ENCOUNTER 2022-11-21 13:07 | Outpatient (REF) | payer OTHER, SELFPAY ==
[2022-09-28 15:43] VITALS: BP 104/60; BP 112/56; BP 132/58; BMI 31.3
--- NOTE | ~2022-11-21 | XR_ITS ---
EXAMINATION: XR ABDOMEN KUB CLINICAL INDICATION: Calculus of kidney. COMPARISON: Abdomen CT from 10/20/2022. TECHNIQUE: AP view of the abdomen. FINDINGS: Bowel gas pattern is normal. Kidneys are suboptimally evaluated due to presence of bowel gas and colonic fecal material. Despite these limitations, 0.2 cm and punctate bilateral renal stones are faintly visualized. Also, there is a 0.6 cm stone at the level of the right lower pole. No radiographic evidence of ureteral or bladder stones. The visualized bones are intact. XR/XR KUB IMPRESSION: Bilateral renal calculi are small and not well seen with exception of a 0.6 cm stone of the right lower pole.
== END 2022-11-21 13:08 | disposition home or self-care (01) ==
LOC: HO.XRAY 13:07
PROVIDERS: PCP Internal Medicine; Visit Provider Nurse Practitioner Family
DX: N20.0 Calculus of kidney (principal)
CPT/HCPCS: 74018

== ENCOUNTER 2022-12-12 14:57 | Outpatient (AMB) | payer OTHER, SELFPAY ==
[2022-09-28 15:43] VITALS: BP 104/60; BP 112/56; BP 132/58; BMI 31.3
--- NOTE | 2022-12-12 15:27 | A.OFFVIS_ITS ---
Intake Intake Visit Reasons: DM Allergies dulaglutide [From TRULICITY] Allergy (Unknown, Verified 11/14/22 22:46) DIARRHEA AND VOMITTING liraglutide [From VICTOZA] Allergy (Unknown, Verified 11/14/22 22:46) DIARRHEA AND VOMITTING, vomiting and diahrrea HPI Comprehensive Diabetes Asmnt Most Recent Diabetes Results: Creatinine 1.32 mg/dL (0.5-1.4) 10/20/22 Blood Urea Nitrogen 19 mg/dL (9-16) H 10/20/22 Sodium 138 mmol/L (135-145) 10/20/22 Potassium 4.3 mmol/L (3.3-5.1) 10/20/22 Chloride 103 mmol/L (96-108) 10/20/22 Carbon Dioxide 23 mmol/L (22-29) 10/20/22 Calcium 9.5 mg/dL (8.4-10.2) 10/20/22 AST 30 U/L (5-31) 10/20/22 ALT 25 U/L (0-31) 10/20/22 Total Protein 7.6 g/dL (6.5-8.0) 10/20/22 Albumin 4.1 g/dL (3.5-5.0) 10/20/22 [facility], [facility] Medical History Arthritis Bacterial conjunctivitis of both eyes Carpal tunnel syndrome Coronary artery disease Depression Essential hypertension History of Clostridium difficile infection Hypercholesterolemia Kidney stone Left navicular fracture of foot Postsurgical hypothyroidism Thyroid nodule Type 2 diabetes mellitus with diabetic polyneuropathy Type 2 diabetes mellitus with hyperglycemia Vitamin B12 deficiency Vitamin D deficiency Well woman exam Surgical History History of renal stent Hx of section Hx of colonoscopy Hx of myomectomy Hx of thyroidectomy Hx of toe surgery Hx of tonsillectomy S/P triple vessel bypass Family History Father DM (diabetes mellitus) Hypertension High cholesterol Spina bifida Kidney stone CAD (coronary artery disease) Mother DM (diabetes mellitus) Hypertension High cholesterol CAD (coronary artery disease) Bipolar 1 disorder Maternal Aunt Lung cancer Maternal Grandfather Lung cancer Other Mental health disorder Social History Household Members: Children Household Members Other:: daughter Housing: Apartment Do you presently have visiting nurse or other home services: No Alcohol intake: never Patient Tobacco Use Status: Never used Tobacco e-Cigarette/Vaping Use: Never Used Second Hand Smoke Exposure: No service: No Current occupational status: employed Cognitive needs: No Hearing needs: No Vision needs: Yes Female Reproductive History Menstrual Age of Menarche: 11 Assessment & Plan Assessment & Plan (1) Type 2 diabetes mellitus with hyperglycemia: Code(s): E11.65 - Type 2 diabetes mellitus with hyperglycemia Qualifiers: Diabetes mellitus fpc insulin use: without keno terminal operator use Qualifie d Code(s): E11.65 - Type 2 diabetes mellitus with hyperglycemia Plan: Patient presents for pump training for? T slim with control IQ and Dexcom G6 The following topics were reviewed today: -? bolusing 15 minutes prior to meals for best glucose? results - Sensor setting (if applicable) ??? High Alert:? 300 mg/dl ??? Low Alert:? 80 mg/dl Patient's average glucose for the last 2 weeks 192 mg/dL Patient above target? 55% Patient at target 44% Patient below target 1% patient continues to struggle bolusing before meals. reinforce the importance of pre meal boluses, however if patient forgets to bolus before meal recommended patient do correction bolus through bolus calculator in order to get full correction. explained to patient that micro boluses given automatically will only be 60% of what actual correction should be Reviewed with patient importance of changing insulin delivery set/Pod every 72 hours, with site rotation. Patient given the opportunity to ask questions about pump function See changes below made to pump settings at this visit. Basal rate(s) (units/hour) : 12 AM? to 12 PM? 1.4 units / hr 12 PM? to 12 AM? 1.350 units / hr Bolus setting Insulin Carbohydrate Ratio (s) 12 AM to 12 PM 1:6.5 12 PM to 12 AM 1:5.5 Correction Factor / Sensitivity Factor 12 AM? to 12 PM? 1:24 12 PM? to 12 AM? 1:22 Active Insulin Time:? 5 hours Target(s): 12 AM to 12 AM? 110 Patient Instructions: worked hurts bolusing before every meal and snack follow-up with Diabetes Education nurse in 2 months Coding Level of Care Code Est Pt Level 1 (37086) Diagnoses Type 2 diabetes mellitus with hyperglycemia E11.65 Diabetes mellitus keno terminal operator insulin use: without fpc use
== END 2022-12-12 15:31 | disposition home or self-care (01) ==
PROVIDERS: PCP Internal Medicine; Visit Provider Registered Nurse Diabetes Educator
DX: E11.65 Type 2 diabetes mellitus with hyperglycemia (principal)

== ENCOUNTER → 2022-12-12 14:57 | Outpatient (BNVA) | payer OTHER, SELFPAY ==
[2022-09-28 15:43] VITALS: BP 104/60; BP 112/56; BP 132/58; BMI 31.3
== END ==
PROVIDERS: Visit Provider Registered Nurse Diabetes Educator
DX: Z46.81 Encounter for fitting and adjustment of insulin pump (principal); E11.65 Type 2 diabetes mellitus with hyperglycemia; Z79.4 Long term (current) use of insulin
CPT/HCPCS: 99211

== ENCOUNTER 2022-12-17 14:58 | Outpatient (AMB) | payer OTHER, SELFPAY ==
[2022-04-26 13:00] VITALS: BP 104/60; BP 132/58
[2022-05-15 09:28] VITALS: BP 104/54; BMI 30.6
[2022-09-28 15:43] VITALS: BP 104/60; BP 112/56; BP 132/58; BMI 31.3
--- NOTE | 2022-12-17 15:01 | A.OFFVIS_ITS ---
Intake Vital Signs 12/17/22 15:02 Height 5 ft 2 in Weight 168 lb 13.985 oz BMI 30.9 BP 100/68 Blood Pressure Location Lt brachial Position Sitting Pulse 72 Intake Visit Reasons: 6M follow up Intake Note: 6 month follow up w/ EKG Health Care Manager Required: No Accompanied by: Self / Same As Patient Allergies dulaglutide [From TRULICITY] Allergy (Unknown, Verified 12/17/22 15:02) DIARRHEA AND VOMITTING liraglutide [From VICTOZA] Allergy (Unknown, Verified 12/17/22 15:02) DIARRHEA AND VOMITTING, vomiting and diahrrea Medication List - Last Reconciled 12/17/22 by Chuckie New MD amlodipine 5 mg PO DAILY 90 days aspirin 81 mg PO DAILY 90 days blood pressure monitor (Blood Pressure Kit) As directed blood sugar diagnostic (FreeStyle Lite Strips) DIRECTED THREE TIMES A DAY blood-glucose meter,continuous (DexIndustry Weapon G6 Supervisor Microwave) As directed blood-glucose sensor (DOZ G6 Sensor device) As directed every 10 days blood-glucose transmitter (Dexcom G6 Transmitter device) As directed one every 3 months cholecalciferol (vitamin D3) 1,250 mcg PO QWEEK clopidogrel 75 mg PO DAILY 90 days docusate sodium 100 mg PO BEDTIME empagliflozin (Jardiance) 10 mg PO DAILY ezetimibe 10 mg PO DAILY 90 days furosemide 40 mg PO DAILY 90 days insulin aspart U-100 Up to 150 units via pump subcut daily; 30 days insulin syringe-needle U-100 (BD Insulin Syringe Ultra-Fine) As directed levothyroxine 125 mcg PO DAILY metformin ER 500 mg PO BID 90 days metoprolol tartrate 25 mg PO BID 90 days pantoprazole 40 mg PO DAILY polyethylene glycol 3350 (Miralax) 17 grams PO DAILY pyridoxine (vitamin B6) 100 mg PO DAILY 90 days rosuvastatin 40 mg PO BEDTIME 90 days sennosides (Natural Senna Laxative) 8.6 mg PO BEDTIME tramadol 50 mg PO BID PRN HPI HPI Comments History of Present Illness Details Mayela returns for follow-up regarding coronary artery disease. To recall, she underwent drug-eluting stent to the mid LAD from 2014. Last year, she underwent stress testing for follow-up of coronary disease and that was quite abnormal leading to cardiac catheterization followed by coronary artery bypass surgery. She states that she is actually doing quite good. No specific complaints like angina or shortness of breath or in fact anything cardiac sounding. Seems to be getting along fine. [facility] Medical History Arthritis Bacterial conjunctivitis of both eyes Carpal tunnel syndrome Coronary artery disease Depression Essential hypertension History of Clostridium difficile infection Hypercholesterolemia Kidney stone Left navicular fracture of foot Postsurgical hypothyroidism Thyroid nodule Type 2 diabetes mellitus with diabetic polyneuropathy Type 2 diabetes mellitus with hyperglycemia Vitamin B12 deficiency Vitamin D deficiency Well woman exam Surgical History History of renal stent Hx of section Hx of colonoscopy Hx of myomectomy Hx of thyroidectomy Hx of toe surgery Hx of tonsillectomy S/P triple vessel bypass Family History Father DM (diabetes mellitus) Hypertension High cholesterol Spina bifida Kidney stone CAD (coronary artery disease) Mother DM (diabetes mellitus) Hypertension High cholesterol CAD (coronary artery disease) Bipolar 1 disorder Maternal Aunt Lung cancer Maternal Grandfather Lung cancer Other Mental health disorder Social History Household Members: Children Household Members Other:: daughter Housing: Apartment Do you presently have visiting nurse or other home services: No Alcohol intake: never Patient Tobacco Use Status: Never used Tobacco e-Cigarette/Vaping Use: Never Used Second Hand Smoke Exposure: No service: No Current occupational status: employed Cognitive needs: No Hearing needs: No Vision needs: Yes Female Reproductive History Menstrual Age of Menarche: 11 Review of Systems Const Denies weakness ENT Denies dizziness Card Denies chest pain, Denies chest pain with activity, Denies syncope, Denies rapid heart rate, Denies pedal edema, Denies edema, Denies leg edema, Denies lightheadedness, Denies palpitations, Denies dyspnea, Denies dyspnea on exertion and Denies orthopnea Resp Denies cough, Denies dyspnea and Denies dyspnea on exertion GI Denies hematochezia and Denies change in stool character Musc Denies abnormal gait, Denies muscle cramps, Denies muscle weakness, Denies numbness, Denies radiating pain into limb and Denies tingling Neuro Denies abnormal gait, Denies dizziness, Denies syncope, Denies numbness, Denies tingling and Denies weakness Endo Denies palpitations Physical Exam Vital Signs: Last Vital Signs Pulse 72 12/17/22 15:02 BP 100/68 12/17/22 15:02 BMI result Body Mass Index 30.9 Const General: comfortable and no acute distress Orientation/consciousness: patient oriented x3 HEENT Other: Unremarkable Head: Yes normal to inspection Neck Neck: Yes normal visual inspection Chest Chest palpation & inspection: normal inspection of the chest Resp Auscultation: clear to auscultation bilaterally Cardio Palpation: normal PMI Heart sounds: S1 normal heart sound present, S2 normal heart sound present, no gallops, no murmurs and no rubs GI Palpation (GI): Soft to palpation Back/Spine/Pelvis Other: unremarkable Skin General skin exam: no rashes or lesions noted Neuro General: patient oriented x3 Extrem General: Yes normal to inspection Psych Mental Status: mental status grossly normal Office Procedures EKG Details: EKG with sinus rhythm at 72/Min; cannot exclude old septal infarct; inferior and lateral slight ST depression with T inversion. Changes seen before. [id number], Complete Assessment & Plan Assessment & Plan (1) Atherosclerotic cardiovascular disease: Code(s): I25.10 - Atherosclerotic heart disease of jackson coronary artery without angina pectoris Plan: Doing well post CABG. Continue aspirin indefinitely. Stop Plavix. Continue beta-blockers. On statin/Zetia. Last LDL 50 mg/dL. Triglycerides 89 mg/dL. (2) Ischemic cardiomyopathy: Code(s): I25.5 - Ischemic cardiomyopathy Plan: In the last echocardiogram, LVEF 40-45% with wall motion abnormalities from underlying coronary disease. Clinically, she does not have any symptoms or signs of congestive heart failure. We can recheck this next year. She was on valsartan but that was stopped after bypass surgery due to low blood pressure. (3) Type 2 diabetes mellitus with hyperglycemia: Code(s): E11.65 - Type 2 diabetes mellitus with hyperglycemia Qualifiers: Diabetes mellitus fdc insulin use: without marine oil terminal superintendent use Qualified Code(s): E11.65 - Type 2 diabetes mellitus with hyperglycemia Plan: Last hemoglobin A1c is 8.1%. On insulin, metformin, Jardiance. (4) Essential hypertension: Code(s): I10 - Essential (primary) hypertension Plan: On amlodipine. Has been on valsartan/hydrochlorothiazide, but it was apparently stopped due to low blood pressure after bypass. Plan Total time spent including review of data, counseling, documentation, coordination of care-32 minutes. Orders: Orders CA echo transthoracic complete 51 Weeks I25.10 - Atherosclerotic heart disease of jackson coronary artery without angina pectoris Medications: Discontinued clopidogrel 12/2021 started Discontinued Reason: Doctor's Order 75 mg PO DAILY 90 days 90 tabs 1RF I25.10 - Atherosclerotic heart disease of jackson coronary artery without angina pectoris Coding Level of Care Code Est Pt Level 4 (85113) Diagnoses Atherosclerotic cardiovascular disease I25.10 Ischemic cardiomyopathy I25.5 Type 2 diabetes mellitus with hyperglycemia E11.65 Diabetes mellitus fdc insulin use: without marine oil terminal superintendent use Essential hypertension I10 CPT Codes EKG - CPT: 26967-[id number], Complete ([id number])
[2022-12-17 15:02] VITALS: BP 100/68; PULSE 72; BMI 30.9
== END 2022-12-17 15:20 | disposition home or self-care (01) ==
PROVIDERS: Visit Provider Internal Medicine
DX: I25.10 Atherosclerotic heart disease of native coronary artery without angina pectoris (principal); I25.5 Ischemic cardiomyopathy; E11.65 Type 2 diabetes mellitus with hyperglycemia; I10 Essential (primary) hypertension
CPT/HCPCS: 93010; 99214

== ENCOUNTER → 2022-12-17 14:58 | Outpatient (BNVA) | payer OTHER, SELFPAY ==
[2022-09-28 15:43] VITALS: BP 104/60; BP 112/56; BP 132/58; BMI 31.3
== END ==
PROVIDERS: Visit Provider Internal Medicine
DX: I25.10 Atherosclerotic heart disease of native coronary artery without angina pectoris (principal); I25.5 Ischemic cardiomyopathy; I10 Essential (primary) hypertension; E11.65 Type 2 diabetes mellitus with hyperglycemia
CPT/HCPCS: 93005; 99212

== ENCOUNTER 2023-01-09 08:33 | Outpatient (AMB) | payer OTHER, SELFPAY ==
[2022-09-28 15:43] VITALS: BP 104/60; BP 112/56; BP 132/58; BMI 31.3
--- NOTE | 2023-01-09 08:36 | A.OFFVIS_ITS ---
Intake Vital Signs 01/09/23 08:37 Height 5 ft 2 in Weight 173 lb 1.006 oz BMI 31.7 BP 130/72 Blood Pressure Location Lt brachial Position Sitting Pulse 59 Pulse Source Pulse Oximeter Intake Visit Reasons: F/Up Type 2 DM Intake Note: Patient present today to follow up on Type 2 Diabetes Mellitus. Patient receives DME supplies through: [facility] Last Diabetic Eye exam: 2021 Last Podiatry Visit: None Random Glucose:164 mg/dl HgA1C: 8.1% 11/05/22 Balance Bridge Inspector Required: No Accompanied by: Self / Same As Patient Allergies dulaglutide [From TRULICITY] Allergy (Unknown, Verified 01/09/23 08:40) DIARRHEA AND VOMITTING liraglutide [From VICTOZA] Allergy (Unknown, Verified 01/09/23 08:40) DIARRHEA AND VOMITTING, vomiting and diahrrea HPI HPI Comments History of Present Illness Details Patient is a 57 yo female with DM type 2 diagnosed over 20 years ago who presents for continued management of diabetes 1) Diabetes - P Diabetes medications: Novolog via T-slim X 2 with control IQ and Dexcom pump, metformin er 500 2 pills BID, Jardiance 10 mg QD Last Tandem T: Slim settings- Basal rate(s) (units/hour) : 12 AM? to 12 PM? 1.4 units / hr 12 PM? to 12 AM? 1.4 units / hr Bolus setting Insulin Carbohydrate Ratio (s) ?12 AM to 12 PM 1:6.5 12 PM to 12 AM 1:5.5 Correction Factor / Sensitivity Factor 12 AM? to 12 PM? 1:24 12 PM? to 12 AM? 1:22 Active Insulin Time:? 5 hours Target(s): 12 AM to 12 AM? 110 Control IQ 50% of time, average suspensions a day for average of minutes Basal 44 %, Food Bolus 24 %, Correction boulus 14 % CGM: In last 14 days, average 231 , range 40 - 400, 32% 70-150, 66% above 2% hypoglycemia TDD .50.84 Cartridge, tubing changed every 3.7 days Hypoglycemia: once or twice a wk Hyperglycemia: Denies nocturia, denies polyuria, denies polydypsia. Was in [place] and took pump off and did not use injections Took Trulicity and Victoza and had GI intolerance in 2014 Exercise: limited Eye Exam: 1 yr ago. Needs to see optho 2) hypothyroidism - She had a total thyroidectomy in 2016. In September 2020 TSH was suppressed therefore her levothyroxine was reduced to 125 mcg daily. She was to do labs in 6 weeks time but this was not done. She did have elevated TSH in early May because had been forgetting LT4 frequently. Now she states that she does take the 7 pills a week, one everyday. Patient has been taking levothyroxine 125 mcg at 5am.. Denies dry skin. Reports fatigue. Laboratory Tests 08/14/21 09/08/21 09/27/21 17:46 12:44 06:38 Creatinine 0.93 Estimated GFR > 60 Hgb A1c (Clinic) 10.2 H TSH 0.81 Free T4 1.07 Microalb/Creat Rat io 09/27/21 06:40 Creatinine Estimated GFR Hgb A1c (Clinic) TSH Free T4 Microalb/Creat Rat io 161.0 03/14/20 05/04/21 05/26/21 06:48 15:40 15:26 Creatinine 1.34 Estimated GFR 41 Hgb A1c (Clinic) 12.8 H Triglycerides 124 Cholesterol 132 LDL Cholesterol, C alc 56 HDL Cholesterol 52 25-OH Vitamin D To angus 29.6 23.7 Vitamin B12 TSH 42.05 H Free T4 0.81 05/26/21 15:26 Creatinine Estimated GFR Hgb A1c (Clinic) Triglycerides Cholesterol LDL Cholesterol, C alc HDL Cholesterol 25-OH Vitamin D To angus Vitamin B12 485 TSH Free T4 PFSH Medical History Arthritis Bacterial conjunctivitis of both eyes Carpal tunnel syndrome Coronary artery disease Depression Essential hypertension History of Clostridium difficile infection Hypercholesterolemia Kidney stone Left navicular fracture of foot Postsurgical hypothyroidism Thyroid nodule Type 2 diabetes mellitus with diabetic polyneuropathy Type 2 diabetes mellitus with hyperglycemia Vitamin B12 deficiency Vitamin D deficiency Well woman exam Surgical History History of renal stent Hx of section Hx of colonoscopy Hx of myomectomy Hx of thyroidectomy Hx of toe surgery Hx of tonsillectomy S/P triple vessel bypass Family History Father DM (diabetes mellitus) Hypertension High cholesterol Spina bifida Kidney stone CAD (coronary artery disease) Mother DM (diabetes mellitus) Hypertension High cholesterol CAD (coronary artery disease) Bipolar 1 disorder Maternal Aunt Lung cancer Maternal Grandfather Lung cancer Other Mental health disorder Social History Household Members: Children Household Members Other:: daughter Housing: Apartment Do you presently have visiting nurse or other home services: No Alcohol intake: never Patient Tobacco Use Status: Never used Tobacco e-Cigarette/Vaping Use: Never Used Second Hand Smoke Exposure: No service: No Current occupational status: employed Cognitive needs: No Hearing needs: No Vision needs: Yes Female Reproductive History Menstrual Age of Menarche: 11 Physical Exam Absence of Cushingoid features. Absence of acromegalic features. Neck exam reveals nl size thyroid about 15 gms. No thyroid nodules palpable. No carotid bruits present. Lungs CTA. Heart S1 S2, Reg R/R. No M/R/ G. Skin exam reveals absence of vitiligo or acanthosis nigricans. Abdominal exam reveals Soft NT/ND with NA BS. No organomegaly present. Neck Other: . Extrem Other: Visual exam of foot performed. No ulcerations or open lesions. No onchomycosis, no callouses.Pulses 2 + distally Sensation intact to monofilament exam. Vibratory sensation sensed is decreased with 128 Hz tuning fork Assessment & Plan Assessment & Plan (1) Type 2 diabetes mellitus with diabetic polyneuropathy: Code(s): E11.42 - Type 2 diabetes mellitus with diabetic polyneuropathy Plan: This is a 57-year-old female with a history of type 2 diabetes being managed with T-slim insulin pump and metformin with improving fair glycemic control and known microvascular complications and macrovascular complication namely neuropathy, micro albuminuria and CAD Plan is to start Mounjaro 2.5 mg Qwkly and titrate as tolerated. Went over side effects of Mounjaro including but not limited to nausea, vomiting risk pancreatitis. Patient may need to decrease basal rate at 12 midnight to 1.2 units n/hr or 1.0 units/hour if hypoglycemia persist overnight after initiation of Mounjaro. If patient cannot tolerate Mounjaro be initiate Ozempic. Patient was intolerant to Trulicity and Victoza in the past.. Patient was instructed to follow up with early childhood special educator in the future and communicated with the nurse regarding any hypoglycemia Mounjaro 2.5 mg samples given to patient lot #[id number] c expiration date 05/23/2024 (2) Postsurgical hypothyroidism: Code(s): E89.0 - Postprocedural hypothyroidism Plan: Clinically euthyroid on 125 mcg levothyroxine. Recheck TSH and free T4 adjust levothyroxine accordingly Orders: Orders Free T4 (Free Thyroxine) Today E89.0 - Postprocedural hypothyroidism Thyroid Stimulating Hormone Today E89.0 - Postprocedural hypothyroidism Medications: New tirzepatide (Mounjaro) 2.5 mg (0.5 mL) subcut QWEEK 4 weeks 2 mL 0RF Coding Level of Care Code Est Pt Level 4 (62137) Diagnoses Type 2 diabetes mellitus with diabetic polyneuropathy E11.42 Postsurgical hypothyroidism E89.0
[2023-01-09 08:37] VITALS: BP 130/72; PULSE 59; BMI 31.7
[2023-01-09 08:53] LABS: Glucose, Whole Blood 164 mg/dL (60-115)
== END 2023-01-09 09:19 | disposition home or self-care (01) ==
PROVIDERS: PCP Internal Medicine; Visit Provider Internal Medicine Endocrinology, Diabetes & Metabolism
DX: E11.42 Type 2 diabetes mellitus with diabetic polyneuropathy (principal); E89.0 Postprocedural hypothyroidism
CPT/HCPCS: 99214

== ENCOUNTER → 2023-01-09 08:33 | Outpatient (BNVA) | payer OTHER, SELFPAY ==
[2022-09-28 15:43] VITALS: BP 104/60; BP 112/56; BP 132/58; BMI 31.3
== END ==
PROVIDERS: Visit Provider Internal Medicine Endocrinology, Diabetes & Metabolism
DX: N39.0 Urinary tract infection, site not specified (principal); N20.0 Calculus of kidney; R32 Unspecified urinary incontinence; E11.42 Type 2 diabetes mellitus with diabetic polyneuropathy; E89.0 Postprocedural hypothyroidism
CPT/HCPCS: 81003; 82947; 99212

== ENCOUNTER 2023-01-09 13:38 | Outpatient (AMB) | payer OTHER, SELFPAY ==
[2022-09-28 15:43] VITALS: BP 104/60; BP 112/56; BP 132/58; BMI 31.3
--- NOTE | 2023-01-09 14:06 | MHC.OFFVIS ---
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 Accompanied by: Self / Same As Patient Allergies dulaglutide [From TRULICITY] Allergy (Unknown, Verified 01/09/23 22:05) DIARRHEA AND VOMITTING liraglutide [From VICTOZA] Allergy (Unknown, Verified 01/09/23 22:05) DIARRHEA AND VOMITTING, vomiting and diahrrea Medication List - Last Reconciled 01/09/23 by GENA SumnerP- amlodipine 5 mg PO DAILY 90 days aspirin 81 mg PO DAILY 90 days blood pressure monitor (Blood Pressure Kit) As directed blood sugar diagnostic (FreeStyle Lite Strips) DIRECTED THREE TIMES A DAY blood-glucose meter,continuous (DexCoinBatch G6 Spray Ii Painter) As directed blood-glucose sensor (DexCoinBatch G6 Sensor device) As directed every 10 days blood-glucose transmitter (Dexcom G6 Transmitter device) As directed one every 3 months cholecalciferol (vitamin D3) 1,250 mcg PO QWEEK docusate sodium 100 mg PO BEDTIME empagliflozin (Jardiance) 10 mg PO DAILY ezetimibe 10 mg PO DAILY 90 days furosemide 40 mg PO DAILY 90 days insulin aspart U-100 Up to 150 units via pump subcut daily; 30 days insulin syringe-needle U-100 (BD Insulin Syringe Ultra-Fine) As directed levothyroxine 125 mcg PO DAILY metformin ER 500 mg PO BID 90 days metoprolol tartrate 25 mg PO BID 90 days pantoprazole 40 mg PO DAILY polyethylene glycol 3350 (Miralax) 17 grams PO DAILY pyridoxine (vitamin B6) 100 mg PO DAILY 90 days rosuvastatin 40 mg PO BEDTIME sennosides (Natural Senna Laxative) 8.6 mg PO BEDTIME tirzepatide (Mounjaro) 2.5 mg (0.5 mL) subcut QWEEK 4 weeks HPI HPI Comments History of Present Illness Details Mayela is a pleasant 57 year old female patient of Dr. Rubio. She presents to the office today to follow up on her history of nephrolithaisis. She has a past medical history of arthritis, carpal tunnel syndrome, coronary artery disease, depression, hypertension, hypercholesteremia, type 2 diabetes with diabetic polyneuropathy, vitamin B12 deficiency, and vitamin-D deficiency. When asked patient reports to be doing and feeling well. Recent renal imaging results reviewed with the patient today. Bilateral renal calculi are small and not well seen with exception of a 0.6 cm stone of the right lower pole. When asked patient reports to be doing and feeling well. She discusses her recent trip to [place]. She denies any urinary issues or concerns at this time. She denies nocturia, hematuria, dysuria, foul smelling urine, changes to urinary stream, flank pain, fever, and or chills. In office urinalysis results reviewed with the patient today. 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 Discussed, educated, and instructed the patient on the importance of consuming plenty of water daily. When discussing urological issues and concerns patient endorses having incontinence and previously attending pelvic floor therapy, tried and failed multiple medications and is due to have a procedure with Dr. Shahnaz Arroyo. [facility] Medical History Arthritis Bacterial conjunctivitis of both eyes Carpal tunnel syndrome Coronary artery disease Depression Essential hypertension History of Clostridium difficile infection Hypercholesterolemia Kidney stone Left navicular fracture of foot Postsurgical hypothyroidism Thyroid nodule Type 2 diabetes mellitus with diabetic polyneuropathy Type 2 diabetes mellitus with hyperglycemia Vitamin B12 deficiency Vitamin D deficiency Well woman exam Surgical History History of renal stent Hx of section Hx of colonoscopy Hx of myomectomy Hx of thyroidectomy Hx of toe surgery Hx of tonsillectomy S/P triple vessel bypass Family History Father DM (diabetes mellitus) Hypertension High cholesterol Spina bifida Kidney stone CAD (coronary artery disease) Mother DM (diabetes mellitus) Hypertension High cholesterol CAD (coronary artery disease) Bipolar 1 disorder Maternal Aunt Lung cancer Maternal Grandfather Lung cancer Other Mental health disorder Social History Household Members: Children Household Members Other:: daughter Housing: Apartment Do you presently have visiting nurse or other home services: No Alcohol intake: never Patient Tobacco Use Status: Never used Tobacco e-Cigarette/Vaping Use: Never Used Second Hand Smoke Exposure: No service: No Current occupational status: employed Cognitive needs: No Hearing needs: No Vision needs: Yes Female Reproductive History Menstrual Age of Menarche: 11 Review of Systems Const Reports as per HPI Eyes Reports no additional complaints ENT Reports no additional complaints Card Reports as per HPI Resp Reports no additional complaints GI Reports no additional complaints Reports as per HPI Musc Reports no additional complaints Neuro Reports no additional complaints Psych Reports no additional complaints Endo Details: Patient reports taking medications for Daibetes and reports sugars to be controlled Reports as per HPI Aller/Immun Reports no additional complaints Physical Exam Const General: cooperative, healthy appearing, comfortable, no acute distress, well developed, alert and awake Orientation/consciousness: patient oriented x3 Limitations: no limitations HEENT Head: Yes normal to inspection, Yes normocephalic and Yes atraumatic Ears: hearing grossly normal bilaterally Eyes General: appearance normal, both eyes and all related structures Neck Neck: Yes normal visual inspection and Yes trachea midline Chest Chest palpation & inspection: normal inspection of the chest Resp Effort & Inspection: normal respiratory effort and able to speak in complete sentences Cardio Rate: regular rate GI Inspection: Yes normal to inspection General: Yes no CVA tenderness Back/Spine/Pelvis Back: no CVA tenderness Skin General skin exam: no rashes or lesions noted Neuro General: patient oriented x3 Extrem General: Yes normal to inspection Psych Appearance: grossly normal and well kempt Mental Status: mental status grossly normal Speech and movement: Normal speech and movement present and Clear speech present Affect: normal affect Attitude: cooperative Thought process: Normal thought process present Thought content: Normal thought content present Insight: Good insight present (Psych) Judgement: Good judgement present (Psych) Results AMB Urinalysis, Automated UA Leukoctes 0 Kelin/uL Last Edit by [employer] on 01/09/23 14:09 UA Nitrite Last Edit by [employer] on 01/09/23 14:09 UA Urobilinogen 0.2 mg/dL Last Edit by [employer] on 01/09/23 14:09 UA Protein 15 mg/dL Last Edit by [employer] on 01/09/23 14:09 UA pH 6.0 Last Edit by [employer] on 01/09/23 14:09 UA Blood 0 Brian/uL Last Edit by Willi Moulton on 01/09/23 14:09 UA Specific [place] 1.020 Last Edit by Wlili Moulton on 01/09/23 14:09 UA Ketone Negative Last Edit by Willi Moulton on 01/09/23 14:09 UA Bilirubin 0 mg/dL Last Edit by Willi Moulton on 01/09/23 14:09 UA Glucose 250 mg/dL Last Edit by Willi Moulton on 01/09/23 14:09 Results Reviewed Results Reviewed: Laboratory Last Values Urine pH (Auto) 6.0 01/09/23 14:07 Specific [place] (Auto) 1.020 01/09/23 14:07 Urine Protein (Auto) 15 mg/dL 01/09/23 14:07 Glucose (UA)(Auto) 250 mg/dL 01/09/23 14:07 Urine Ketones (Auto) Negative 01/09/23 14:07 Urine Blood (Auto) 0 Brian/uL 01/09/23 14:07 Urine Bilirubin (Auto) 0 mg/dL 01/09/23 14:07 Urine Urobilinogen (Auto) 0.2 mg/dL 01/09/23 14:07 Leukocyte Esterase (Auto) 0 Kelin/uL 01/09/23 14:07 Date of Service: 11/21/22 EXAMINATION: XR ABDOMEN KUB FINDINGS: Bowel gas pattern is normal. Kidneys are suboptimally evaluated due to presence of bowel gas and colonic fecal material. Despite these limitations, 0.2 cm and punctate bilateral renal stones are faintly visualized. Also, there is a 0.6 cm stone at the level of the right lower pole. No radiographic evidence of ureteral or bladder stones. The visualized bones are intact. IMPRESSION: Bilateral renal calculi are small and not well seen with exception of a 0.6 cm stone of the right lower pole. Assessment & Plan Assessment & Plan (1) Recurrent UTI: Code(s): N39.0 - Urinary tract infection, site not specified (2) Renal calculus, bilateral: Code(s): N20.0 - Calculus of kidney (3) Urine incontinence: Code(s): R32 - Unspecified urinary incontinence Plan In office urinalysis results reviewed with the patient today; as noted above. Recent KUB results reviewed with the patient today; as noted above. Patient denies any bothersome urinary issues or concerns at this time. Discussed at length importance of drinking plenty of water daily Discussed surveillance monitoring/24 urine collection and labs/as well as surgical intervention regarding renal calculi; discussed risks and benefits of a llasforementioned treatment options Discussed UTI prevention with D mannose supplement, vitamin-C, increasing fluid intake, behavioral therapy with timed voiding, perineal hygiene and postcoital voiding, and management of constipation with stool softeners and increased fiber intake. Discussed, educated, instructed on the importance of drinking plenty of water daily. Continue to follow up with Shahnaz Arroyo regarding ongoing urinary incontinence as patient reports upcoming surgery with her Renal ultrasound in 6 months. Follow-up in 6 months with imaging to be completed prior or sooner with any issues, concerns, and or questions Orders: Orders US renal BI 6 Months N20.0 - Calculus of kidney AMB Urinalysis Automated Today Z13.9 - Encounter for screening, unspecified Patient Instructions: The patient had an opportunity to ask questions regarding the treatment plan. All questions were answered. Physical exam, labs, and imaging were discussed and reviewed in detail. As well as risks, benefits, and discussion of treatment choices. No major barriers to understanding were identified. The patient expressed understanding and agreement with the above treatment plan. The patient was made aware they should contact our office by phone for worsening of their current condition, the appearance of new symptoms, or with any questions or concerns. Compliance is encouraged with any medications and follow up testing that is ordered. It is a privilege to be allowed the opportunity to participate in? your urological care.? Again, if you have any questions or concerns If you have any questions or concerns please do not hesitate to contact me. The office is [phone]. This note is constructed using voice recognition software. While every effort has been made to ensure accuracy recreational specialist errors may have been included. Yours sincerely, GAURAV Sumner Coding Level of Care Code Est Pt Level 3 (65090) Diagnoses Recurrent UTI N39.0 Renal calculus, bilateral N20.0 Urine incontinence R32
== END 2023-01-09 14:36 | disposition home or self-care (01) ==
PROVIDERS: PCP Internal Medicine; Visit Provider Nurse Practitioner Family
DX: N39.0 Urinary tract infection, site not specified (principal); N20.0 Calculus of kidney; R32 Unspecified urinary incontinence
CPT/HCPCS: 99213

== ENCOUNTER 2023-02-11 16:10 | Outpatient (AMB) | payer OTHER, SELFPAY ==
[2022-09-28 15:43] VITALS: BP 104/60; BP 112/56; BP 132/58; BMI 31.3
[2023-02-11 16:12] VITALS: BP 120/58; PULSE 90; O2SAT 93; BMI 31.1
--- NOTE | 2023-02-11 16:12 | MHC.PC.OV ---
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 Allergies dulaglutide [From TRULICITY] Allergy (Unknown, Verified 02/11/23 16:14) DIARRHEA AND VOMITTING liraglutide [From VICTOZA] Allergy (Unknown, Verified 02/11/23 16:14) DIARRHEA AND VOMITTING, vomiting and diahrrea Tobacco use date assessed: 02/11/23 Dental Screening Dental Screen Date: 02/11/23 Did you have a dental visit in the last 12 months?: No Did you have a dental problem in the last 6 months where you did not have access to dental care?: No Was dental information given to patient?: Patient has dentist HPI F/Up DM HPI Details 57-year-old obese female with uncontrolled diabetes mellitus nephrolithiasis hypothyroidism hypertension hypercholesterolemia coronary artery disease coming in for follow-up last seen in October 2022 colonoscopy had tubular adenoma February 2017. Patient was seen by urology December 2022 continue to monitor with ultrasound bilateral kidneys in 6 month. Patient follows up with endocrinology also advised T slim insulin pump and metformin advised to startMounjaro. Patient also follows up with Cardiology CAD status post CABG LDL goal of less than 70 echocardiogram last ejection fraction 40-45%. PAtient has not started with mounjaro due to myalgia- OA- concern on UTI - called urology placed on sgteroid and tamsulosin but patient did not start for fear of steroid concern in office - BS is too low 42- brakfast bar given to patient PFSH Medical History Arthritis Bacterial conjunctivitis of both eyes Carpal tunnel syndrome Coronary artery disease Depression Essential hypertension History of Clostridium difficile infection Hypercholesterolemia Kidney stone Left navicular fracture of foot Postsurgical hypothyroidism Thyroid nodule Type 2 diabetes mellitus with diabetic polyneuropathy Type 2 diabetes mellitus with hyperglycemia Vitamin B12 deficiency Vitamin D deficiency Well woman exam Surgical History History of renal stent Hx of section Hx of colonoscopy Hx of myomectomy Hx of thyroidectomy Hx of toe surgery Hx of tonsillectomy S/P triple vessel bypass Family History Father DM (diabetes mellitus) Hypertension High cholesterol Spina bifida Kidney stone CAD (coronary artery disease) Mother DM (diabetes mellitus) Hypertension High cholesterol CAD (coronary artery disease) Bipolar 1 disorder Maternal Aunt Lung cancer Maternal Grandfather Lung cancer Other Mental health disorder Social History Household Members: Children Household Members Other:: daughter Housing: Apartment Do you presently have visiting nurse or other home services: No Alcohol intake: never Patient Tobacco Use Status: Never used Tobacco e-Cigarette/Vaping Use: Never Used Second Hand Smoke Exposure: No service: No Current occupational status: employed Cognitive needs: No Hearing needs: No Vision needs: Yes Female Reproductive History Menstrual Age of Menarche: 11 Questionnaire Thrive Questionnaire Date Thrive assessed: 07/19/22 AUDIT C Alcohol Use Questionnaire (AUDIT-C) 1. How often do you have a drink containing alcohol?: Monthly or less 2. How many drinks containing alcohol do you have on a typical day when you are drinking?: 1 or 2 3. How often do you have six or more drinks on one occasion?: Never Total Score: 1 HERB-7 AMB Questionnaire HERB-7 Date HERB - 7 assessed: 11/05/22 Source: Developed by Drs. Suleiman John, Addie Reeves, Tonny Ramos and colleagues, with an educational dmitriy from [employer]. Physical exam (Primary Care) Vital Signs: Last Vital Signs Pulse 90 02/11/23 16:12 BP 120/58 L 02/11/23 16:12 Pulse Ox 93 02/11/23 16:12 Oxygen Delivery Method Room Air 02/11/23 16:12 BMI result Body Mass Index 31.1 Tobacco/Smoking Status: Tobacco use Status Tobacco use date assessed 02/11/23 02/11/23 16:14 Patient Tobacco Use Status Never used Tobacco 02/11/23 16:14 e-Cigarette/Vaping Use Never Used 02/11/23 16:14 Thrive Assessment: Date of Thrive Assessment Date Thrive assessed 07/19/22 02/11/23 16:14 Const General: alert; No acute distress Eyes Conjunctivae: conjunctivae normal Resp Auscultation: clear to auscultation bilaterally Cardio Rate: regular rate Rhythm: regular rhythm GI Inspection: Yes normal to inspection Extrem General: Yes normal to inspection and No edema Results AMB Hemoglobin A1c AMB Hemoglobin A1c 8.9 % Last Edit by EDRICK Hester on 02/11/23 16:32 AMB Urinalysis, Automated UA Leukoctes 0 Kelin/uL Last Edit by NHUNG Christiansen on 02/11/23 17:26 UA Nitrite Negative Last Edit by NHUNG Christiansen on 02/11/23 17:26 UA Urobilinogen 0 mg/dL Last Edit by NHUNG Christiansen on 02/11/23 17:26 UA Protein 0 mg/dL Last Edit by NHUNG Christiansen on 02/11/23 17:26 UA pH 6.0 Last Edit by NHUNG Christiansen on 02/11/23 17:26 UA Blood 0 Brian/uL Last Edit by NHUNG Christiansen on 02/11/23 17:26 UA Specific [place] 1.015 Last Edit by NHUNG Christiansen on 02/11/23 17:26 UA Ketone Negative Last Edit by NHUNG Christiansen on 02/11/23 17:26 UA Bilirubin 0 mg/dL Last Edit by NHUNG Christiansen on 02/11/23 17:26 UA Glucose 1000 mg/dL Last Edit by NHUNG Christiansen on 02/11/23 17:26 Results Reviewed Results Reviewed: Laboratory Last Values Hgb A1c (Clinic) 8.9 % (4.0-6.0) H 02/11/23 16:30 Assessment and Plan Assessment & Plan (1) Type 2 diabetes mellitus with hyperglycemia: Comment: [place] [employer] Code(s): E11.65 - Type 2 diabetes mellitus with hyperglycemia Qualifiers: Diabetes mellitus retirement insulin use: without retirement use Qualified Code(s): E11.65 - Type 2 diabetes mellitus with hyperglycemia Plan: Decrease the amount of carbohydrate intake, pasta, bread, rice and potatoes are all sugar and that is aside from all the sweet stuff, remember that fruits are good but they are Sweet also. Hemoglobin A1c goal of less than 6.5. Patient has met with endocrinology and has been started on Mounjaro (2) Postsurgical hypothyroidism: Code(s): E89.0 - Postprocedural hypothyroidism Plan: Continue with thyroid medication (3) Essential hypertension: Code(s): I10 - Essential (primary) hypertension Plan: Continue with blood pressure medication. Decrease salt intake and exercise patient on amlodipine 5 mg once a day metoprolol 25 mg once a day (4) Coronary artery disease: Comment: Catheterization stent placement September 2014, CABG 12/2021 Code(s): I25.10 - Atherosclerotic heart disease of [place] coronary artery without angina pectoris Qualifiers: Associated angina: without angina Coronary Disease-Associated Artery/Lesion type: [place] artery [place] vs. transplanted heart: [place] heart Qualified Code(s): I25.10 - Atherosclerotic heart disease of [place] coronary artery without angina pectoris Plan: Control the cholesterol, weight, blood pressure, diabetes (5) Hypercholesterolemia: Code(s): E78.00 - Pure hypercholesterolemia, unspecified Plan: Avoid fried foods, chicken skin, eggs, butter margarine, pastries and meat. Be it pork or beef they have a lot of cholesterol LDL goal of less than 70 and triglyceride of less than 150 patient is on Zetia and rosuvastatin 40 mg (6) Ischemic cardiomyopathy: Code(s): I25.5 - Ischemic cardiomyopathy Plan: Echocardiogram for follow-up as per Cardiology (7) GERD (gastroesophageal reflux disease): Code(s): K21.9 - Gastro-esophageal reflux disease without esophagitis Qualifiers: Esophagitis presence: esophagitis presence not specified Qualified Code(s): K21.9 - Gastro-esophageal reflux disease without esophagitis Plan: Avoid the foods that causes that usually spicy foods, tomato products, juices, coffee, soda and foods that your sensitive to. After eating do not lie down, allow 3-4 hours before in lie down. And keep the head of bed above 30 degrees to avoid the acid from going up. (8) Kidney stone: Code(s): N20.0 - Calculus of kidney Plan: Patient follows up with urology and under surveillance (9) Dysuria: Code(s): R30.0 - Dysuria Plan: urinalysis advised Orders: Orders AMB Hemoglobin A1c Today E11.65 - Type 2 diabetes mellitus with hyperglycemia Hemoglobin A1c 3 Months E11.65 - Type 2 diabetes mellitus with hyperglycemia Creatinine Urine 3 Months E11.65 - Type 2 diabetes mellitus with hyperglycemia Thyroid Stimulating Hormone 3 Months E11.65 - Type 2 diabetes mellitus with hyperglycemia Vitamin B12 and Folate 3 Months E11.65 - Type 2 diabetes mellitus with hyperglycemia AMB Urinalysis Automated Today R30.0 - Dysuria, Z13.9 - Encounter for screening, unspecified Complete Blood Count Auto Diff 3 Months E11.65 - Type 2 diabetes mellitus with hyperglycemia Comprehensive Met. Panel 3 Months E11. - Type 2 diabetes mellitus with hyperglycemia Free T4 (Free Thyroxine) 3 Months E11. - Type 2 diabetes mellitus with hyperglycemia Microalbumin, Random (w Creat) 3 Months E11. - Type 2 diabetes mellitus with hyperglycemia Vitamin D 25-OH Total 3 Months E11. - Type 2 diabetes mellitus with hyperglycemia Lipid Panel 3 Months E11.65 - Type 2 diabetes mellitus with hyperglycemia, E78.00 - Pure hypercholesterolemia, unspecified Coding Level of Care Code Est Pt Level 4 (46090) Diagnoses Type 2 diabetes mellitus with hyperglycemia, without long-term current use of insulin E11. 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 transplanted heart: [place] heart Hypercholesterolemia E78.00 Ischemic cardiomyopathy I25.5 Gastroesophageal reflux disease, unspecified whether esophagitis present K21.9 Esophagitis presence: esophagitis presence not specified Kidney stone N20.0 Dysuria R30.0
== END 2023-02-11 17:21 | disposition home or self-care (01) ==
PROVIDERS: PCP Internal Medicine; Visit Provider Internal Medicine
DX: R30.0 Dysuria (principal); E11.65 Type 2 diabetes mellitus with hyperglycemia; E11.42 Type 2 diabetes mellitus with diabetic polyneuropathy
CPT/HCPCS: 81003; 83036; 99214

== ENCOUNTER → 2023-04-22 13:35 | Outpatient (BNVA) | payer OTHER, SELFPAY ==
[2022-09-28 15:43] VITALS: BP 104/60; BP 132/58; BMI 31.3
[2023-02-11 17:22] VITALS: BP 100/66
== END ==
PROVIDERS: PCP Internal Medicine; Visit Provider Registered Nurse Diabetes Educator

== ENCOUNTER → 2023-04-25 16:46 | Outpatient (BNVA) | payer OTHER, SELFPAY ==
[2022-09-28 15:43] VITALS: BP 104/60; BP 132/58; BMI 31.3
[2023-02-11 17:22] VITALS: BP 100/66
== END ==
PROVIDERS: PCP Internal Medicine; Visit Provider Internal Medicine Hypertension Specialist

== ENCOUNTER 2023-04-30 08:02 | Outpatient (AMB) | payer OTHER, SELFPAY ==
[2022-09-28 15:43] VITALS: BP 104/60; BP 132/58; BMI 31.3
[2023-02-11 17:22] VITALS: BP 100/66
[2023-04-30 08:05] VITALS: BP 132/66; PULSE 67; BMI 32.6
--- NOTE | 2023-04-30 08:05 | A.OFFVIS_ITS ---
Intake Vital Signs 04/30/23 08:05 Height 5 ft 2 in Weight 178 lb 2.136 oz BMI 32.6 BP 132/66 Blood Pressure Location Lt brachial Position Sitting Pulse 67 Pulse Source Pulse Oximeter Intake Visit Reasons: DM-CONFIRMED Intake Note: Patient present today to follow up on Type 2 Diabetes Mellitus. Patient receives DME supplies through: [facility] Diabetic Eye exam: 02/08/23 Last Podiatry Visit: None Random Glucose: 174 mg/dl HgA1C: 8.8% Red Lead Burner Required: No Accompanied by: Self / Same As Patient Allergies dulaglutide [From TRULICITY] Allergy (Unknown, Verified 04/30/23 08:11) DIARRHEA AND VOMITTING liraglutide [From VICTOZA] Allergy (Unknown, Verified 04/30/23 08:11) DIARRHEA AND VOMITTING, vomiting and diahrrea Medication List - Last Reconciled 04/30/23 by Suleiman Hargrove MD amlodipine 5 mg PO DAILY 90 days aspirin 81 mg PO DAILY 90 days blood pressure monitor (Blood Pressure Kit) As directed blood sugar diagnostic (FreeStyle Lite Strips) DIRECTED THREE TIMES A DAY blood-glucose meter,continuous (Dexcom G6 Day Care Home Mother) As directed blood-glucose sensor (Dexcom G6 Sensor device) As directed every 10 days blood-glucose transmitter (Dexcom G6 Transmitter device) As directed one every 3 months cholecalciferol (vitamin D3) 1,250 mcg PO QWEEK docusate sodium 100 mg PO BEDTIME empagliflozin (Jardiance) 10 mg PO DAILY ezetimibe 10 mg PO DAILY 90 days furosemide 40 mg PO DAILY 90 days insulin aspart U-100 Up to 150 units via pump subcut daily; 30 days insulin syringe-needle U-100 (BD Insulin Syringe Ultra-Fine) As directed levothyroxine 125 mcg PO DAILY metformin ER 500 mg PO BID 90 days metoprolol tartrate 25 mg PO BID 90 days pantoprazole 40 mg PO DAILY polyethylene glycol 3350 (Miralax) 17 grams PO DAILY pyridoxine (vitamin B6) 100 mg PO DAILY 90 days rosuvastatin 40 mg PO BEDTIME sennosides (Natural Senna Laxative) 8.6 mg PO BEDTIME tamsulosin 0.4 mg PO BEDTIME 14 days tirzepatide (Mounjaro) 2.5 mg (0.5 mL) subcut QWEEK 4 weeks HPI HPI Comments History of Present Illness Details Patient is a 58 yo female with DM type 2 diagnosed over 20 years ago who presents for continued management of diabetes 1) Diabetes - P Diabetes medications: Novolog via T-slim X 2 with control IQ and Dexcom pump, metformin er 500 2 pills BID stopped because of GI upset , Jardiance 10 mg QD. Mounjaro 2.5 mg Qwklynot taking because ran out but was tolerating Last Tandem T: Slim settings- Basal rate(s) (units/hour) : 12 AM? to 12 PM? 1.4 units / hr 12 PM? to 12 AM? 1.4 units / hr Bolus setting Insulin Carbohydrate Ratio (s) 12 AM to 12 PM 1:6.5 12 PM to 12 AM 1:5.5 Correction Factor / Sensitivity Factor 12 AM? to 12 PM? 1:24 12 PM? to 12 AM? 1:22 Active Insulin Time:? 5 hours Target(s): 12 AM to 12 AM? 110 Control IQ 76% of time, average suspensions a day for average of minutes Basal 45 %, Food Bolus 35 %, Correction boulus 9 % CGM: In last 14 days, average 205 , range 71 - 400, 38% 70-150, 62% above 0% hypoglycemia TDD .89.06 Cartridge, tubing changed every 3.7 days Hypoglycemia: once or twice a wk Hyperglycemia: Denies nocturia, denies polyuria, denies polydypsia. Was in [place] and took pump off and did not use injections Took Trulicity and Victoza and had GI intolerance in 2014 Exercise: limited Eye Exam: saw optho in October 2022 2) hypothyroidism - She had a total thy roidectomy in 2016. In September 2020 TSH was suppressed therefore her levothyroxine was reduced to 125 mcg daily. She was to do labs in 6 weeks time but this was not done. She did have elevated TSH in early May because had been forgetting LT4 frequently. Now she states that she does take the 7 pills a week, one everyday. Patient has been taking levothyroxine 125 mcg at 5am.. Denies dry skin. Reports fatigue. Laboratory Tests 08/14/21 09/08/21 09/27/21 17:46 12:44 06:38 Creatinine 0.93 Estimated GFR > 60 Hgb A1c (Clinic) 10.2 H TSH 0.81 Free T4 1.07 Microalb/Creat Rat io 09/27/21 06:40 Creatinine Estimated GFR Hgb A1c (Clinic) TSH Free T4 Microalb/Creat Rat io 161.0 03/14/20 05/04/21 05/26/21 06:48 15:40 15:26 Creatinine 1.34 Estimated GFR 41 Hgb A1c (Clinic) 12.8 H Triglycerides 124 Cholesterol 132 LDL Cholesterol, C alc 56 HDL Cholesterol 52 25-OH Vitamin D To angus 29.6 23.7 Vitamin B12 TSH 42.05 H Free T4 0.81 05/26/21 15:26 Creatinine Estimated GFR Hgb A1c (Clinic) Triglycerides Cholesterol LDL Cholesterol, C alc HDL Cholesterol 25-OH Vitamin D To angus Vitamin B12 485 TSH Free T4 [facility] Medical History (Updated 04/25/23 @ 16:42 by Ritesh Soto MD) CKD (chronic kidney disease) stage 3, GFR 30-59 ml/min Bacterial conjunctivitis of both eyes Well woman exam Left navicular fracture of foot Vitamin B12 deficiency Thyroid nodule History of Clostridium difficile infection Coronary artery disease Hypercholesterolemia Depression Kidney stone Carpal tunnel syndrome Arthritis 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 Vitamin D deficiency Essential hypertension Type 2 diabetes mellitus with hyperglycemia Surgical History Hx of colonoscopy S/P triple vessel bypass Hx of toe surgery Hx of thyroidectomy History of renal stent Hx of section Hx of myomectomy Hx of tonsillectomy Family History Father DM (diabetes mellitus) Hypertension High cholesterol Spina bifida Kidney stone CAD (coronary artery disease) Mother DM (diabetes mellitus) Hypertension High cholesterol CAD (coronary artery disease) Bipolar 1 disorder Maternal Aunt Lung cancer Maternal Grandfather Lung cancer Other Mental health disorder Social History Household Members: Children Household Members Other:: daughter Housing: Apartment Do you presently have visiting nurse or other home services: No Alcohol intake: never Patient Tobacco Use Status: Never used Tobacco e-Cigarette/Vaping Use: Never Used Second Hand Smoke Exposure: No service: No Current occupational status: employed Cognitive needs: No Hearing needs: No Vision needs: Yes Female Reproductive History Menstrual Age of Menarche: 11 Physical Exam Vital Signs: Last Vital Signs Pulse 67 12/12/23 08:05 BP 132/66 04/30/23 08:05 BMI result Body Mass Index 32.6 Absence of Cushingoid features. Absence of acromegalic features. Neck exam reveals nl size thyroid about 15 gms. No thyroid nodules palpable. No carotid bruits present. Lungs CTA. Heart S1 S2, Reg R/R. No M/R/ G. Skin exam reveals absence of vitiligo or acanthosis nigricans. Abdominal exam reveals Soft NT/ND with NA BS. No organomegaly present. Neck Other: . Extrem Other: Visual exam of foot performed. No ulcerations or open lesions. No onchomycosis, no callouses.Pulses 2 + distally Sensation intact to monofilament exam. Vibratory sensation sensed is decreased with 128 Hz tuning fork Results AMB Hemoglobin A1c AMB Hemoglobin A1c 8.8 % Last Edit by Sameera Brennan on 04/30/23 08:27 Results Reviewed Results Reviewed: Laboratory Last Values Glucose (Clinic) 174 mg/dL (60-115) H 04/30/23 08:15 Hgb A1c (Clinic) 8.8 % (4.0-6.0) H 04/30/23 08:25 Assessment & Plan Assessment & Plan (1) Type 2 diabetes mellitus with diabetic polyneuropathy: Code(s): E11.42 - Type 2 diabetes mellitus with diabetic polyneuropathy Plan: This is a 57-year-old female with a history of type 2 diabetes being managed with T-slim insulin pump and metformin with improving fair glycemic control and known microvascular complications and macrovascular complication namely neuropathy, micro albuminuria and CAD Plan is to restart Mounjaro 2.5 mg Qwkly. Please note the patient has failed Trulicity and Victoza in the past. Told patient report any hypoglycemia for adjustment of her insulin pump. Will recheck lipid profile microalbumin to creatinine ratio ordered by patient's primary care provider. Patient told to follow up with in service educator (2) Postsurgical hypothyroidism: Code(s): E89.0 - Postprocedural hypothyroidism Plan: Clinically euthyroid on 125 mcg levothyroxine. Recheck TSH and free T4 adjust levothyroxine accordingly Orders: Orders AMB Hemoglobin A1c Today E11.42 - Type 2 diabetes mellitus with diabetic polyneuropathy Medications: Refilled tirzepatide (Mounjaro) 2.5 mg (0.5 mL) subcut QWEEK 4 weeks 2 mL 0RF Coding Level of Care Code Est Pt Level 4 (27717) Diagnoses Type 2 diabetes mellitus with diabetic polyneuropathy E11.42 Postsurgical hypothyroidism E89.0
[2023-04-30 08:19] LABS: Glucose, Whole Blood 174 mg/dL (60-115)
== END 2023-04-30 08:51 | disposition home or self-care (01) ==
PROVIDERS: PCP Internal Medicine; Visit Provider Internal Medicine Endocrinology, Diabetes & Metabolism
DX: E11.42 Type 2 diabetes mellitus with diabetic polyneuropathy (principal); E89.0 Postprocedural hypothyroidism
CPT/HCPCS: 99214

== ENCOUNTER → 2023-04-30 08:02 | Outpatient (BNVA) | payer OTHER, SELFPAY ==
[2022-09-28 15:43] VITALS: BP 104/60; BP 132/58; BMI 31.3
[2023-02-11 17:22] VITALS: BP 100/66
== END ==
PROVIDERS: PCP Internal Medicine; Visit Provider Internal Medicine Endocrinology, Diabetes & Metabolism
DX: Z46.81 Encounter for fitting and adjustment of insulin pump (principal); E11.42 Type 2 diabetes mellitus with diabetic polyneuropathy; E89.0 Postprocedural hypothyroidism; Z79.4 Long term (current) use of insulin
CPT/HCPCS: 82947; 83036; 99212

== ENCOUNTER 2023-05-18 10:28 | Outpatient (REF) | payer OTHER, SELFPAY ==
[2023-05-07 12:13] VITALS: BP 100/66; BP 104/60; BP 132/58; BMI 31.3
[2023-05-18 10:44] LABS: MANUAL DIFF FLAG NO
[2023-05-18 11:17] LABS: Basophils Absolute Auto 0.1 X10*3/uL (0.0-0.2); Basophils Percent Auto 0.6 % (0-2); Eosinophils Absolute Auto 0.1 X10*3/uL (0.0-0.4); Eosinophils Percent Auto 1.2 % (0-4); Hematocrit 47.1 % (37.0-47.0); Hemoglobin 14.9 g/dl (12.0-16.0); Imm Gran Abs Auto 0.04 X10*3/uL (0.00-0.03); Imm Gran Pct Auto 0.4 % (0.0-0.4); Lymphocytes Absolute Auto 2.6 X10*3/uL (1.2-4.9); Lymphocytes Percent Auto 24.5 % (20-40); Mean Corpuscular HGB Conc 31.6 g/dl (31.0-35.0); Mean Corpuscular Volume 88.5 fL (80.0-98.0); Mean Platelet Volume 11.6 fL (9.4-12.3); Monocytes Percent Auto 9.8 % (2-11); Neutrophils Absolute Auto 6.8 x10*3/uL (2.0-8.3); Neutrophils Percent Auto 63.5 % (45-73); Platelet Count 335 X10*3/uL (160-400); Red Blood Count 5.32 X10*6/uL (4.20-5.50); Red Cell Distribution Width 14.9 % (11.0-16.0); White Blood Count 10.7 X10*3/uL (4.8-10.8)
[2023-05-18 11:48] LABS: Creatinine Urine 64.99 mg/dL; Microalbum/Creatinine Ratio Ur 193.8 ug/mg cr (<30)
[2023-05-18 11:54] LABS: Estimated Average Glucose 206 mg/dL; Hemoglobin A1c % 8.8 % (<6.0)
[2023-05-18 11:59] LABS: Alanine Aminotransferase 19 U/L (0-31); Albumin Level 4.6 g/dL (3.5-5.0); Alkaline Phosphatase 86 U/L (39-117); Anion Gap 12 (12-20); Aspartate Amino Transferase 22 U/L (5-31); Bilirubin Total 0.5 mg/dL (0.0-1.0); Blood Urea Nitrogen 20 mg/dL (9-16); Calcium 9.8 mg/dL (8.4-10.2); Carbon Dioxide 25 mmol/L (22-29); Chloride 104 mmol/L (96-108); Cholesterol 132 mg/dL (<200); Estimated Glomerular Filt Rate 48; Glucose Random 126 mg/dL (60-115); HDL Cholesterol 53 mg/dL (>40); LDL Cholesterol Calculated 65 mg/dL (<100); Potassium 3.3 mmol/L (3.3-5.1); Sodium 138 mmol/L (135-145); Total Protein 8.5 g/dL (6.5-8.0); Triglycerides 71 mg/dL (<150); Uric Acid 3.4 mg/dL (2.4-5.7)
[2023-05-18 12:03] LABS: Free T4 (Free Thyroxine) 1.51 ng/dL (0.71-1.85); Thyroid Stimulating Hormone 1.78 uIU/mL (0.32-4.0); Vitamin D 25-OH Total 40.4 ng/mL (>30)
[2023-05-18 12:17] LABS: Folate 10.1 ng/mL (> or = 4.0); Vitamin B12 538 pg/mL (200-900)
== END 2023-05-18 10:29 | disposition home or self-care (01) ==
LOC: HO.LAB 10:28
PROVIDERS: Absent Provider Internal Medicine; PCP Internal Medicine; Referring Provider Internal Medicine Endocrinology, Diabetes & Metabolism; Visit Provider Internal Medicine Hypertension Specialist
DX: E11.65 Type 2 diabetes mellitus with hyperglycemia (principal); E11.22 Type 2 diabetes mellitus with diabetic chronic kidney disease; N18.30 Chronic kidney disease, stage 3 unspecified; E78.00 Pure hypercholesterolemia, unspecified
CPT/HCPCS: 36415; 80048; 80053; 80061; 82043; 82306; 82570; 82607; 82746; 83036; 84439; 84443; 84550; 85025

== ENCOUNTER 2023-05-28 06:30 | Outpatient (REF) | payer OTHER, SELFPAY ==
[2023-05-07 12:13] VITALS: BP 100/66; BP 104/60; BP 132/58; BMI 31.3
[2023-05-29 08:55] LABS: Creatinine, mg/dL 51.52
[2023-05-29 09:02] LABS: Creatinine, mg/dL 50.94; Uric Acid, mg/dL 19.4 mg/dL
[2023-05-29 09:14] LABS: Creatinine, 24Hr Urine 1.1 G/Day (1.0-2.0); Creatinine, 24Hr Urine 1.2 G/Day (1.0-2.0); Sodium 24 Hr Urine 76.5 mmol/Day (40-220); Total Volume 24 Hour Urine 2250 mL; Uric Acid, 24 Hr Urine 436.5 mg/Day (250-750)
[2023-05-31 18:09] LABS: Calcium, 24 Hr Urine 196 mg/24 h; Calcium/Creatinine Ratio 167 mg/g creat (30-275); Creatinine 24Hr Urine 1.17 g/24 h (0.50-2.15)
[2023-06-05 15:13] LABS: 24hr Urine Total Volume 2250 mL; Citric Acid, 24hr Urine 250 mg/24 h (100-1300); Citric Acid/Creat Ratio 24U 206 mg/g creat (180-1070); Creatinine, 24U 1.17 g/24 h (0.50-2.15)
[2023-06-07 03:43] LABS: Oxalic Acid 24 Urine 24.8 mg/24 h (3.6-38.0)
== END 2023-05-28 06:31 | disposition home or self-care (01) ==
LOC: HO.LNP 06:30
PROVIDERS: Visit Provider Internal Medicine Hypertension Specialist
DX: N20.0 Calculus of kidney (principal); N18.30 Chronic kidney disease, stage 3 unspecified
CPT/HCPCS: 82340; 82507; 83945; 84300; 84560

== ENCOUNTER 2023-05-30 16:13 | Outpatient (AMB) | payer OTHER, SELFPAY ==
[2023-05-07 12:13] VITALS: BP 100/66; BP 104/60; BP 132/58; BMI 31.3
[2023-05-30 16:14] VITALS: BP 130/70; PULSE 72; O2SAT 100; BMI 31.5
--- NOTE | 2023-05-30 16:14 | HO.NEPHOV ---
HPI HPI Comments History of Present Illness Details Middle aged woman with long standing DM and HTN and kidney stones with CKD Here for follow up No new issues PFSH Medical History (Updated 05/30/23 @ 16:31 by Ritesh Soto MD) CKD (chronic kidney disease) stage 3, GFR 30-59 ml/min Bacterial conjunctivitis of both eyes Well woman exam Left navicular fracture of foot Vitamin B12 deficiency Thyroid nodule History of Clostridium difficile infection Coronary artery disease Hypercholesterolemia Depression Kidney stone Carpal tunnel syndrome Arthritis 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 Vitamin D deficiency Essential hypertension Type 2 diabetes mellitus with hyperglycemia Surgical History Hx of colonoscopy S/P triple vessel bypass Hx of toe surgery Hx of thyroidectomy History of renal stent Hx of section Hx of myomectomy Hx of tonsillectomy Family History Father DM (diabetes mellitus) Hypertension High cholesterol Spina bifida Kidney stone CAD (coronary artery disease) Mother DM (diabetes mellitus) Hypertension High cholesterol CAD (coronary artery disease) Bipolar 1 disorder Maternal Aunt Lung cancer Maternal Grandfather Lung cancer Other Mental health disorder Social History Household Members: Children Household Members Other:: daughter Housing: Apartment Do you presently have visiting nurse or other home services: No Alcohol intake: never Patient Tobacco Use Status: Never used Tobacco e-Cigarette/Vaping Use: Never Used Second Hand Smoke Exposure: No service: No Current occupational status: employed Cognitive needs: No Hearing needs: No Vision needs: Yes Female Reproductive History Menstrual Age of Menarche: 11 Vital Signs 05/30/23 16:14 Height 5 ft 2 in Weight 172 lb BMI 31.5 BP 130/70 Blood Pressure Location Lt brachial Position Sitting Pulse 72 Pulse Source Pulse Oximeter Pulse Oximetry (%) 100 Oxygen Delivery Method Room Air Physical Exam Vital Signs: Last Vital Signs Pulse 72 05/30/23 16:14 BP 130/70 05/30/23 16:14 Pulse Ox 100 05/30/23 16:14 Oxygen Delivery Method Room Air 05/30/23 16:14 BMI result Body Mass Index 31.5 Const General: comfortable Nutritional Appearance: well nourished Orientation/consciousness: patient oriented x3 HEENT Head: No normal to inspection Mouth: moist mucous membranes Neck Neck: Yes supple and Yes no JVD Resp Auscultation: clear to auscultation bilaterally, no rales and rub present Cardio Jugular venous distension: no JVD Palpation: no palpable S3 and no palpable S4 Heart sounds: no rubs GI Palpation (GI): Soft to palpation and nontender Percussion: No Fluid wave present General: Yes no CVA tenderness Back/Spine/Pelvis Back: no CVA tenderness Skin General skin exam: no rashes or lesions noted Neuro General: patient oriented x3 Extrem General: Yes no pedal edema and No clubbing Assessment & Plan Assessment & Plan (1) CKD (chronic kidney disease) stage 3, GFR 30-59 ml/min: Code(s): N18.30 - Chronic kidney disease, stage 3 unspecified (2) Renal calculus, bilateral: Code(s): N20.0 - Calculus of kidney Plan Renal function has improved Most likely has diabetic kidney disease Fluctuation in creatinine due to hemodynamics Encouraged low salt diet Increase PO fluids Avoid nephrotoxins including NSAIDS Maintain A1C < 7% Concur with current medical management including Jardiance Orders: Orders Electrolytes 4 Months N18.30 - Chronic kidney disease, stage 3 unspecified, N20.0 - Calculus of kidney Creatinine 4 Months N18.30 - Chronic kidney disease, stage 3 unspecified, N20.0 - Calculus of kidney Total Protein Urine Random 4 Months N18.30 - Chronic kidney disease, stage 3 unspecified, N20.0 - Calculus of kidney UA and rflx microscopic 4 Months N18.30 - Chronic kidney disease, stage 3 unspecified, N20.0 - Calculus of kidney Phosphorus 4 Months N18.30 - Chronic kidney disease, stage 3 unspecified, N20.0 - Calculus of kidney Blood Urea Nitrogen 4 Months N18.30 - Chronic kidney disease, stage 3 unspecified, N20.0 - Calculus of kidney Calcium 4 Months N18.30 - Chronic kidney disease, stage 3 unspecified, N20.0 - Calculus of kidney Parathyroid Hormone Intact 4 Months N18.30 - Chronic kidney disease, stage 3 unspecified, N20.0 - Calculus of kidney Uric Acid 4 Months N18.30 - Chronic kidney disease, stage 3 unspecified, N20.0 - Calculus of kidney Creatinine Urine 4 Months N18.30 - Chronic kidney disease, stage 3 unspecified, N20.0 - Calculus of kidney Coding Level of Care Code Est Pt Level 3 (19937) Diagnoses CKD (chronic kidney disease) stage 3, GFR 30-59 ml/min N18.30 Renal calculus, bilateral N20.0 Results Reviewed Nephrology Results: Hgb 14.9 g/dl (12.0-16.0) 05/18/23 WBC 10.7 X10*3/uL (4.8-10.8) 05/18/23 Plt Count 335 X10*3/uL (160-400) 05/18/23 Sodium 138 mmol/L (135-145) 05/18/23 Potassium 3.3 mmol/L (3.3-5.1) 05/18/23 Chloride 104 mmol/L (96-108) 05/18/23 Carbon Dioxide 25 mmol/L (22-29) 05/18/23 BUN 20 mg/dL (9-16) H 05/18/23 Creatinine 1.16 mg/dL (0.5-1.4) 05/18/23 Calcium 9.8 mg/dL (8.4-10.2) 05/18/23 Urine Creatinine 64.99 mg/dL 05/18/23
== END 2023-05-30 16:34 | disposition home or self-care (01) ==
PROVIDERS: PCP Internal Medicine; Visit Provider Internal Medicine Hypertension Specialist
DX: N18.30 Chronic kidney disease, stage 3 unspecified (principal); N20.0 Calculus of kidney
CPT/HCPCS: 99213

== ENCOUNTER → 2023-05-30 16:13 | Outpatient (BNVA) | payer OTHER, SELFPAY ==
[2023-05-07 12:13] VITALS: BP 100/66; BP 104/60; BP 132/58; BMI 31.3
== END ==
PROVIDERS: PCP Internal Medicine; Visit Provider Internal Medicine Hypertension Specialist
DX: N18.30 Chronic kidney disease, stage 3 unspecified (principal); N20.0 Calculus of kidney
CPT/HCPCS: 99212

== ENCOUNTER → 2023-08-21 16:20 | Outpatient (BNVA) | payer OTHER, SELFPAY ==
[2023-05-07 12:13] VITALS: BP 100/66; BP 104/60; BP 132/58; BMI 31.3
== END ==
PROVIDERS: PCP Internal Medicine; Visit Provider Nurse Practitioner Family
DX: K59.04 Chronic idiopathic constipation (principal); K21.9 Gastro-esophageal reflux disease without esophagitis
CPT/HCPCS: 99212

== ENCOUNTER 2023-09-04 14:04 | Outpatient (AMB) | payer OTHER, SELFPAY ==
[2023-05-07 12:13] VITALS: BP 100/66; BP 104/60; BP 132/58; BMI 31.3
--- NOTE | 2023-09-04 14:17 | MHC.OFFVIS ---
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 No complaints. Last Pap/HPV was negative in 11/06 Last Mammogram was BI-RADS 2 in 10/09 Last Colonoscopy was 6 years ago, the patient has a scheduled appointment with GI Lady for screening colonoscopy [facility] Medical History CKD (chronic kidney disease) stage 3, GFR 30-59 ml/min Bacterial conjunctivitis of both eyes Well woman exam Left navicular fracture of foot Vitamin B12 deficiency Thyroid nodule History of Clostridium difficile infection Coronary artery disease Hypercholesterolemia Depression Kidney stone Carpal tunnel syndrome Arthritis 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 Vitamin D deficiency Essential hypertension Type 2 diabetes mellitus with hyperglycemia Surgical History Hx of colonoscopy S/P triple vessel bypass Hx of toe surgery Hx of thyroidectomy History of renal stent Hx of section Hx of myomectomy Hx of tonsillectomy Family History Father DM (diabetes mellitus) Hypertension High cholesterol Spina bifida Kidney stone CAD (coronary artery disease) Mother DM (diabetes mellitus) Hypertension High cholesterol CAD (coronary artery disease) Bipolar 1 disorder Maternal Aunt Lung cancer Maternal Grandfather Lung cancer Other Mental health disorder Social History Household Members: Children Household Members Other:: daughter Housing: Apartment Do you presently have visiting nurse or other home services: No Alcohol intake: never Patient Tobacco Use Status: Never used Tobacco e-Cigarette/Vaping Use: Never Used Second Hand Smoke Exposure: No service: No Current occupational status: employed Cognitive needs: No Hearing needs: No Vision needs: Yes Female Reproductive History Menstrual Age of Menarche: 11 Menopause type: natural Total pregnancies: 6 Full term: 3 Number of Living Children: 3 Date of last pap smear: 10/27/19 Date of Mammogram: 10/05/22 Review of Systems Const All systems reviewed & are unremarkable except as noted in HPI and below Card Reports as per HPI Resp Reports as per HPI GI Reports as per HPI and Reports no additional complaints Reports as per HPI Physical Exam Vital Signs: BMI result Body Mass Index 29.8 Const General: cooperative, healthy appearing and comfortable Chest Chest palpation & inspection: normal inspection of the chest and normal palpation of entire chest wall Breast/axilla inspection: normal inspection of the breasts and normal inspection of the axillae Breast/axilla palpation: normal palpation of the breasts, normal palpation of the axillae and no axillary lymphadenopathy Resp Effort & Inspection: normal respiratory effort Auscultation: clear to auscultation bilaterally Percussion: percussion normal Cardio Palpation: normal PMI Rate: regular rate Rhythm: regular rhythm Heart sounds: no murmurs and no rubs Peripheral pulses: Peripheral pulses 2+ throughout GI Inspection: Yes normal to inspection Palpation (GI): Soft to palpation, nontender, no guarding, not rigid and No hepatosplenomegaly present Percussion: Yes normal to percussion Auscultation: normal bowel sounds Rectal Exam - Female: deferred General: Yes bladder normal to palpation External Female Exam: No lesion Speculum Exam - Vagina: normal appearance of the vagina, normal palpation, normal vaginal discharge and not erythematous Speculum Exam - Cervix: normal appearance of the cervix and normal palpation Bimanual exam- vagina & uterus: normal bimanual exam, normal palpation, uterine size normal, bladder normal to palpation, consistency normal and normal palpation Bimanual Exam- Adnexa, other: normal adnexae, no masses and no tenderness Assessment & Plan Assessment & Plan (1) Well woman exam: Code(s): Z01.419 - Encounter for gynecological examination (general) (routine) without abnormal findings Plan: Co testing not indicated this year. Counseled the patient about the recommended dietary allowance of 1200 mg of Calcium & 600 IU of vitamin D. Mammogram scheduled in 10/10 The patient was has an appointment scheduled with GI in few weeks for screening colonoscopy . The patient was instructed to perform monthly self-breast exams and schedule annual exam in a year. All questions answered and the patient verbalized understanding. Orders: Orders MM tomosynthesis screening BI Today Z12.31 - Encounter for screening mammogram for malignant neoplasm of breast Coding Level of Care Code Est Pt Prev Care 40-64y(33312) Diagnoses Well woman exam Z01.419
[2023-09-04 14:23] VITALS: BP 110/60; BMI 29.8
== END 2023-09-04 15:08 | disposition home or self-care (01) ==
PROVIDERS: PCP Internal Medicine; Visit Provider Obstetrics & Gynecology
DX: Z01.419 Encounter for gynecological examination (general) (routine) without abnormal findings (principal)
CPT/HCPCS: 99396

== ENCOUNTER → 2023-09-04 14:04 | Outpatient (BNVA) | payer OTHER, SELFPAY ==
[2023-05-07 12:13] VITALS: BP 100/66; BP 104/60; BP 132/58; BMI 31.3
== END ==
PROVIDERS: PCP Internal Medicine; Visit Provider Obstetrics & Gynecology
DX: Z01.419 Encounter for gynecological examination (general) (routine) without abnormal findings (principal)
CPT/HCPCS: 99396

== ENCOUNTER 2023-09-11 16:32 | Outpatient (REF) | payer OTHER, SELFPAY ==
[2023-09-04 14:31] VITALS: BP 100/66; BP 104/60; BP 132/58; BMI 31.3
--- NOTE | ~2023-09-11 | US_ITS ---
EXAMINATION: US RETROPERITONEAL LIMITED (RENAL ONLY) CLINICAL INFORMATION: Calculus of kidney. COMPARISON: X-ray [facility] 11/21/2022. CT abdomen and pelvis 10/20/2022. Renal ultrasound 05/23/2022 and 11/22/2021. X-ray abdomen 07/07/2014. TECHNIQUE: Real-time imaging of the kidneys. FINDINGS: RIGHT KIDNEY: 11.0 x 5.5 x 4.2 cm (SAG x AP x TRV). The kidney is normal in size and echogenicity. Renal cortical thickness is normal. No focal parenchymal lesions or hydronephrosis. The kidney has a slightly lobulated contour. 1.1 x 0.5 x 1.0 cm nonobstructing calculus is seen in the mid kidney. LEFT KIDNEY: 11.8 x 5.3 x 4.1 cm (SAG x AP x TRV). The kidney is normal in size and echogenicity. Renal cortical thickness is normal. No focal parenchymal lesions or hydronephrosis. The kidney has a slightly lobulated contour. There are multiple nonobstructing renal calculi, the largest is a 1.0 x 0.9 x 1.1 cm nonobstructing calculus in the mid kidney US/US renal BI IMPRESSION: Bilateral renal calculi.
== END 2023-09-11 16:33 | disposition home or self-care (01) ==
LOC: HO.US 16:32
PROVIDERS: PCP Internal Medicine; Visit Provider Nurse Practitioner Family
DX: N20.0 Calculus of kidney (principal)
CPT/HCPCS: 76775

== ENCOUNTER 2023-09-19 17:48 | Emergency (ER) | payer OTHER, SELFPAY ==
[2023-09-04 14:31] VITALS: BP 100/66; BP 104/60; BP 132/58; BMI 31.3
--- NOTE | ~2023-09-19 | XR_ITS ---
EXAMINATION: XR CHEST CLINICAL INFORMATION: Desaturation COMPARISON: Baseline 5-24 TECHNIQUE: Frontal view of the chest was obtained. FINDINGS: Evidence of previous cardiac surgery. No significant abnormality is noted involving the heart, lungs, mediastinum, bony thorax or soft tissues. XR/XR chest 1V IMPRESSION: No active chest disease..
--- NOTE | ~2023-09-19 | XR_ITS ---
EXAMINATION: XR CHEST CLINICAL INFORMATION: Chest pain, cough COMPARISON: None available. TECHNIQUE: Frontal view of the chest was obtained. FINDINGS: The cardiomediastinal silhouette is within normal limits. The lungs are well expanded. There is no focal consolidation, edema, or effusion. No pneumothorax. No acute osseous abnormality. XR/XR chest 1V IMPRESSION: No evidence of acute pulmonary process
--- NOTE | 2023-09-19 17:51 | ECG_ITS ---
Test Reason : chest pain Blood Pressure : / mmHG Vent. Rate : 074 BPM Atrial Rate : 074 BPM P-R Int : 188 ms QRS Dur : 112 ms QT Int : 388 ms P-R-T Axes : 039 004 -79 degrees QTc Int : 430 ms Normal sinus rhythm Minimal voltage criteria for LVH, may be normal variant ( [place] product ) Septal infarct , age undetermined T wave abnormality, consider inferior ischemia Abnormal ECG When compared with ECG of 23-SEP-2017 21:34, Septal infarct is now Present Inverted T waves have replaced nonspecific T wave abnormality in Inferior leads Referred By: Mali Suarez Electronically Signed By:JACKELINE MARIANO
[2023-09-19 18:08] VITALS: BP 139/68; PULSE 72; RESP 18; TEMP 37.2; O2SAT 94; BMI 31.8
[2023-09-19 18:12] LABS: MANUAL DIFF FLAG NO
--- NOTE | 2023-09-19 18:12 | ED.CHESTPAIN ---
HPI - Chest Pain General Chief Complaint: Chest Pain Stated Complaint: chest pain, sob, fatigue, weak Time Seen by Provider: 09/19/23 19:14 Source: patient Mode of arrival: ambulatory Limitations: no limitations History of Present Illness HPI narrative: Patient comes to the emergency room complaining of palpitations for 24+ hours. Complaining of occasional chest pain throughout the entire chest, at random places. Patient also states that her pump has been malfunctioning. Patient states that she gets a message from her pump saying that there is a blockage. Patient states that she has all the equipment at home to change the tubing. At this time, no palpitations or chest pain or shortness of breath, no dizziness. Patient complaining of feeling very thirsty. Related Data Home Medications ?Medication ?Instructions ?Recorded ?Confirmed insulin syringe-needle U-100 1 mL #10 ea 03/14/22 12/17/22 31 gauge x 5/16 (BD Insulin Syringe Ultra-Fine) Previous Rx's ?Medication ?Instructions ?Recorded blood-glucose meter,continuous #1 ea 07/13/21 (Dexcom G6 Global Regulatory Lead) blood-glucose sensor (Dexcom G6 #3 ea 07/13/21 Sensor device) blood-glucose transmitter (Dexcom #1 ea 07/13/21 G6 Transmitter device) blood sugar diagnostic (FreeStyle #100 strips 09/23/21 Lite Strips) ezetimibe 10 mg tablet 10 mg PO DAILY 90 days #90 tabs 02/05/22 blood pressure monitor (Blood #1 ea 03/02/22 Pressure Kit) pantoprazole 40 mg tablet,delayed 40 mg PO DAILY #90 tabs 09/28/22 release polyethylene glycol 3350 17 gram 17 g PO DAILY #100 ea 09/28/22 oral powder packet (Miralax) empagliflozin 10 mg tablet 10 mg PO DAILY #30 tabs 10/22/22 (Jardiance) aspirin 81 mg tablet,delayed 81 mg PO DAILY 90 days #90 tabs 11/01/22 release insulin aspart U-100 100 unit/mL See Rx Instructions subcut DAILY 11/28/22 subcutaneous solution 30 days #50 mL metoprolol tartrate 25 mg tablet 25 mg PO BID 90 days #180 tabs 11/28/22 levothyroxine 125 mcg tablet 125 mcg PO DAILY #30 tabs 12/08/22 rosuvastatin 40 mg tablet 40 mg PO BEDTIME #90 tabs 12/21/22 amlodipine 5 mg tablet 5 mg PO DAILY 90 days #90 tabs 02/23/23 furosemide 40 mg tablet 40 mg PO DAILY 90 days #90 tabs 02/23/23 tirzepatide 2.5 mg/0.5 mL 2.5 mg (0.5 mL) subcut QWEEK 4 04/30/23 subcutaneous pen injector weeks #2 mL (Chato) pyridoxine (vitamin B6) 100 mg 100 mg PO DAILY 90 days #90 tabs 06/13/23 tablet docusate sodium 100 mg capsule 100 mg PO BEDTIME #90 caps 08/21/23 sennosides 8.6 mg tablet (Natural 8.6 mg PO BEDTIME constipation #90 08/21/23 Senna Laxative) tabs Allergies Allergy/AdvReac Type Severity Reaction Status Date / Time dulaglutide [From TRULICITY] Allergy Unknown DIARRHEA Verified 09/19/23 18:10 AND VOMITTING liraglutide [From VICTOZA] Allergy Unknown DIARRHEA Verified 09/19/23 18:10 AND VOMITTING, vomiting and diahrrea Review of Systems Review of Systems: Constitutional : No Weight loss, No Fever, No Chills, No Night Sweats, No Fatigue, No Malaise ENT/Mouth : No Hearing loss, No Ear Pain, No Nasal Congestion, No Sinus Pain, No Hoarseness, No sore throat, No Rhinorrhea, No Swallowing Difficulty Eyes: No Eye Pain, No Swelling, No Redness, No Foreign Body, No Discharge, No Vision Changes Cardiovascular : Intermittent chest pain, switching sites [id number] intermittently, no shortness of breath, complaining of palpitations Respiratory : No Cough, No Sputum, No Wheezing, No Smoke Exposure, No Dyspnea Gastrointestinal : No Nausea, No Vomiting, No Diarrhea, No Constipation, No abdominal Pain, No Hematochezia, No Melena Genitourinary : no irregular bleeding, No Dysuria, No Urinary Frequency, No Hematuria, No Urinary Incontinence, No Urgency, No Flank Pain, No Urinary Flow Changes, No Hesitancy Musculoskeletal : No joint pain, No Myalgias, No Joint Swelling Skin : No Skin Lesions, No rash Neuro : No Weakness, No Numbness, No Paresthesias, No Loss of Consciousness, No Dizziness, No Headache Psych : No Anxiety/Panic, No Depression, No SI/HI/AH/VH, No Social Issues, Heme/Lymph: No Bruising, No Bleeding,No Lymphadenopathy Endocrine : Complaining of polydipsia polyuria, No Temperature Intolerance PMFSH Past Medical History Medical History CKD (chronic kidney disease) stage 3, GFR 30-59 ml/min Bacterial conjunctivitis of both eyes Well woman exam Left navicular fracture of foot Vitamin B12 deficiency Thyroid nodule History of Clostridium difficile infection Coronary artery disease Hypercholesterolemia Depression Kidney stone Carpal tunnel syndrome Arthritis 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 Vitamin D deficiency Essential hypertension Type 2 diabetes mellitus with hyperglycemia Surgical History Hx of colonoscopy S/P triple vessel bypass Hx of toe surgery Hx of thyroidectomy History of renal stent Hx of section Hx of myomectomy Hx of tonsillectomy Family History Family History Father DM (diabetes mellitus) Hypertension High cholesterol Spina bifida Kidney stone CAD (coronary artery disease) Mother DM (diabetes mellitus) Hypertension High cholesterol CAD (coronary artery disease) Bipolar 1 disorder Maternal Aunt Lung cancer Maternal Grandfather Lung cancer Other Mental health disorder Social History Social History Household Members: Children Household Members Other:: daughter Housing: Apartment Do you presently have visiting nurse or other home services: No Alcohol intake: never Patient Tobacco Use Status: Never used Tobacco e-Cigarette/Vaping Use: Never Used Second Hand Smoke Exposure: No Advance Directives: No Advance Directives Information Provided: No service: No Current occupational status: employed Cognitive needs: No Hearing needs: No Vision needs: Yes Physical Exam Vital Signs: Vital Signs: Last Vital Signs Temp 99.0 F 09/19/23 18:08 Pulse 64 09/19/23 19:18 Resp 18 09/19/23 19:18 BP 139/68 09/19/23 18:08 Pulse Ox 94 09/19/23 19:18 O2 Del Method Room Air 09/19/23 19:18 BMI result Body Mass Index 31.8 Const: Other: Appearance: Alert. Oriented X3. No acute distress. Well-appearing Eyes: Pupils equal, round and reactive to light. ENT: Pharynx normal. Neck: Normal inspection. Neck supple. No lymph nodes noted. No crepitus CVS: Normal heart rate and rhythm. Pulses normal. Normal S1 and S2 Respiratory: No respiratory distress. Breath sounds normal. No Wheezing. No rales Abdomen: Soft and nontender. No rigidity. No distention. Skin: Skin warm and dry. Normal skin color. Normal skin turgor. Extremities: No lower extremity edema. No Lacerations. No Rash Neuro: Oriented X 3. No motor deficit. No sensory deficit. Moving all extremities. No slurred speech. CN 2 through 12 grossly intact Psych: calm, cooperative, normal affect Course Course Course Narrative: This is a rapid medical exam completed by Radha KITCHEN: Additional HPI, ROS, PE not included below will be deferred to primary provider. Palpitations last night -patient will receive 10 units of insulin. -small amount of bolus will be given, patient has an ejection fraction of 40-45%. Reevaluation(s) Reevaluation #1: Glucose 623. VBG and urine ordered Time: 18:33 Medications Administered Generic Name Dose Route Start Last Admin Trade Name Freq PRN Reason Stop Dose Admin Sodium Chloride 1,000 mls @ 999 mls/hr 09/19/23 20:39 09/19/23 20:48 Ns IVCONT 09/19/23 21:39 999 mls/hr .Q1H1M ONE Administration Discontinued Medications Generic Name Dose Route Start Last Admin Trade Name Freq PRN Reason Stop Dose Admin Insulin Human Regular 10 unit 09/19/23 20:35 09/19/23 20:48 Insulin Regular, Human 100 Unit/Ml 3 Ml Vial IVPUSH 09/19/23 20:36 10 unit ONCE ONE Administration Medical Decision Making Medical Decision Making [facility] Narrative: -my interpretation of labs: Normal hematology,, venous gases show a pH of 7.42, bicarb 27, pCO2 41, within normal limits. Of 130 but a glucose of 623, corrected sodium is normal,, patient has new FRANK, likely secondary to hyperglycemia. Patient receiving IV fluids and insulin. BNP and troponin within normal limits -patient's hyperglycemia is secondary to a pump malfunction that the patient was not aware until a few minutes ago. No new dose changes will be made. Patient will change the tubing tonight in her pump. -at this time, patient has no received insulin yet. Sign-out given to my colleague Dr. Jorgensen Differential Diagnosis Differential Diagnoses: The differential diagnosis associated with the presentation includes (Hyperglycemia, dehydration) Admission/Observation Consideration of admission/observation: Escalation of care including admission/observation considered (Given patient's labs, admission/observation considered.) Lab Data MDM Lab Attestation statement: I reviewed the patient's lab results. 09/19/23 18:06 09/19/23 18:06 Labs: Lab Results 09/19/23 09/19/23 09/19/23 Range/Units 18:06 19:27 19:29 WBC 10.3 (4.8-10.8) X10*3/uL RBC 5.00 (4.20-5.50) X10*6/uL Hgb 14.2 (12.0-16.0) g/dl Hct 41.3 (37.0-47.0) % MCV 82.6 (80.0-98.0) fL MCH 28.4 (27.0-33.0) pg MCHC 34.4 (31.0-35.0) g/dl RDW 13.5 (11.0-16.0) % Plt Count 290 (160-400) X10*3/uL MPV 12.3 (9.4-12.3) fL Immature Gran % (Auto) 0.3 (0.0-0.4) % Neut % (Auto) 58.7 (45-73) % Lymph % (Auto) 31.7 (20-40) % Dickinson % (Auto) 7.5 (2-11) % Eos % (Auto) 1.1 (0-4) % Baso % (Auto) 0.7 (0-2) % Lymph # (Auto) 3.3 (1.2-4.9) X10*3/uL Dickinson # (Auto) 0.8 (0.1-1.2) X10*3/uL Eos # (Auto) 0.1 (0.0-0.4) X10*3/uL Baso # (Auto) 0.1 (0.0-0.2) X10*3/uL Abs Immat Gran (auto) 0.03 (0.00-0.03) X10*3/uL Absolute Neuts (auto) 6.0 (2.0-8.3) x10*3/uL Absolute Nucleated RBC 0.000 (0.0-0.012) X10*3/uL Nucleated RBC % (auto) 0.0 (0.0-0.2) /100WBC Hold Blue Top SEE NOTE VBG pH 7.42 (7.32-7.43) VBG pCO2 41 mmHg VBG pO2 58 mmHg VBG HCO3 27 H (22-26) mmol/L VBG O2 Saturation 87.0 % VBG Base Excess 2.9 mmol/L Sodium 130 L (135-145) mmol/L Potassium 4.2 (3.3-5.1) mmol/L Chloride 92 L (96-108) mmol/L Carbon Dioxide 25 (22-29) mmol/L Anion Gap 17 (12-20) BUN 23 H (9-16) mg/dL Creatinine 1.81 H (0.5-1.4) mg/dL Estim Creat Clear Calc 31.2 Estimated GFR 29 POC Glucose (60-115) mg/dL Random Glucose 623 H* (60-115) mg/dL Calcium 10.2 (8.4-10.2) mg/dL Magnesium 2.2 (1.6-2.6) mg/dL Total Bilirubin 0.5 (0.0-1.0) mg/dL AST 24 (5-31) U/L ALT 28 (0-31) U/L Alkaline Phosphatase 94 (39-117) U/L Troponin I High Sens 2.9 (<3.5-17.0) ng/L B-Natriuretic Peptide < 10 (<100) pg/mL Total Protein 8.2 H (6.5-8.0) g/dL Albumin 4.4 (3.5-5.0) g/dL 09/19/23 Range/Units 20:42 WBC (4.8-10.8) X10*3/uL RBC (4.20-5.50) X10*6/uL Hgb (12.0-16.0) g/dl Hct (37.0-47.0) % MCV (80.0-98.0) fL MCH (27.0-33.0) pg MCHC (31.0-35.0) g/dl RDW (11.0-16.0) % Plt Count (160-400) X10*3/uL MPV (9.4-12.3) fL Immature Gran % (Auto) (0.0-0.4) % Neut % (Auto) (45-73) % Lymph % (Auto) (20-40) % Dickinson % (Auto) (2-11) % Eos % (Auto) (0-4) % Baso % (Auto) (0-2) % Lymph # (Auto) (1.2-4.9) X10*3/uL Dickinson # (Auto) (0.1-1.2) X10*3/uL Eos # (Auto) (0.0-0.4) X10*3/uL Baso # (Auto) (0.0-0.2) X10*3/uL Abs Immat Gran (auto) (0.00-0.03) X10*3/uL Absolute Neuts (auto) (2.0-8.3) x10*3/uL Absolute Nucleated RBC (0.0-0.012) X10*3/uL Nucleated RBC % (auto) (0.0-0.2) /100WBC Hold Blue Top VBG pH (7.32-7.43) VBG pCO2 mmHg VBG pO2 mmHg VBG HCO3 (22-26) mmol/L VBG O2 Saturation % VBG Base Excess mmol/L Sodium (135-145) mmol/L Potassium (3.3-5.1) mmol/L Chloride (96-108) mmol/L Carbon Dioxide (22-29) mmol/L Anion Gap (12-20) BUN (9-16) mg/dL Creatinine (0.5-1.4) mg/dL Estim Creat Clear Calc Estimated GFR POC Glucose 547 H* (60-115) mg/dL Random Glucose (60-115) mg/dL Calcium (8.4-10.2) mg/dL Magnesium (1.6-2.6) mg/dL Total Bilirubin (0.0-1.0) mg/dL AST (5-31) U/L ALT (0-31) U/L Alkaline Phosphatase (39-117) U/L Troponin I High Sens (<3.5-17.0) ng/L B-Natriuretic Peptide (<100) pg/mL Total Protein (6.5-8.0) g/dL Albumin (3.5-5.0) g/dL Critical Care Time Critical Care Time Critical Care Time: Yes Total Critical Care Time: 45 Attestation: I have personally provided critical care time. Time includes review of lab data, radiology results, discussion with consultants, and monitoring for potential decompensation. Intervention performed as documented. Discharge Plan Discharge Clinical Impression: Palpitations, Acute hyperglycemia, Acute kidney injury Patient Disposition: Home, Self-Care Instructions: Diabetic Hyperglycemia (ED), Heart Palpitations (ED), Acute Kidney Injury (DC) Additional Instructions: Please follow-up with your primary care physician tomorrow. If you have any worsening or new symptoms, please return to the emergency room or call 911 Prescriptions: No Action (DME) Dexcom G6 Sensor Device See Rx Instructions .ROUTE .MEDSUPPLY Qty: 3 11RF Rx Instructions: As directed every 10 days (DME) Dexcom G6 Transmitter Device See Rx Instructions .ROUTE .MEDSUPPLY Qty: 1 0RF Rx Instructions: As directed one every 3 months (DME) Dexcom G6 Global Regulatory Lead Misc See Rx Instructions .ROUTE .MEDSUPPLY Qty: 1 0RF Rx Instructions: As directed (DME) FreeStyle Lite Strips Strip See Rx Instructions .ROUTE .COMPLEX Qty: 100 11RF Dose Instruction: DIRECTED THREE TIMES A DAY Rx Instructions: DIRECTED THREE TIMES A DAY (DME) blood pressure monitor [Blood Pressure Kit] Kit See Rx Instructions .ROUTE .MEDSUPPLY Qty: 1 0RF Rx Instructions: As directed Jardiance 10 mg tablet 10 mg PO DAILY Qty: 30 5RF aspirin 81 mg tablet,delayed release (DR/EC) 81 mg PO DAILY 90 Days Qty: 90 3RF metoprolol tartrate 25 mg tablet 25 mg PO BID 90 Days Qty: 180 2RF insulin aspart U-100 100 unit/mL solution See Rx Instructions subcut DAILY 30 Days Qty: 50 6RF Rx Instructions: Up to 150 units via pump subcut daily; levothyroxine 125 mcg tablet 125 mcg PO DAILY Qty: 30 11RF rosuvastatin 40 mg tablet 40 mg PO BEDTIME Qty: 90 1RF furosemide 40 mg tablet 40 mg PO DAILY 90 Days Qty: 90 1RF amlodipine 5 mg tablet 5 mg PO DAILY 90 Days Qty: 90 1RF pyridoxine (vitamin B6) 100 mg tablet 100 mg PO DAILY 90 Days Qty: 90 3RF ezetimibe 10 mg tablet 10 mg PO DAILY 90 Days Qty: 90 2RF (DME) insulin syringe-needle U-100 [BD Insulin Syringe Ultra-Fine] 1 mL 31 gauge x 5/16 syringe See Rx Instructions .ROUTE TID Qty: 10 Rx Instructions: As directed pantoprazole 40 mg tablet,delayed release (DR/EC) 40 mg PO DAILY Qty: 90 2RF Rx Instructions: take one tablet half an hour before breakfast polyethylene glycol 3350 [Miralax] 17 gram powder in packet 17 g PO DAILY Qty: 100 3RF sennosides [Natural Senna Laxative] 8.6 mg tablet 8.6 mg PO BEDTIME Qty: 90 3RF docusate sodium 100 mg capsule 100 mg PO BEDTIME Qty: 90 3RF Mounjaro 2.5 mg/0.5 mL pen injector 2.5 mg subcut QWEEK 28 Days Qty: 2 0RF Print Language: Ukrainian
[2023-09-19 18:22] LABS: Basophils Absolute Auto 0.1 X10*3/uL (0.0-0.2); Basophils Percent Auto 0.7 % (0-2); Eosinophils Absolute Auto 0.1 X10*3/uL (0.0-0.4); Eosinophils Percent Auto 1.1 % (0-4); Hematocrit 41.3 % (37.0-47.0); Hemoglobin 14.2 g/dl (12.0-16.0); Imm Gran Abs Auto 0.03 X10*3/uL (0.00-0.03); Imm Gran Pct Auto 0.3 % (0.0-0.4); Lymphocytes Absolute Auto 3.3 X10*3/uL (1.2-4.9); Lymphocytes Percent Auto 31.7 % (20-40); Mean Corpuscular HGB Conc 34.4 g/dl (31.0-35.0); Mean Corpuscular Hemoglobin 28.4 pg (27.0-33.0); Mean Corpuscular Volume 82.6 fL (80.0-98.0); Mean Platelet Volume 12.3 fL (9.4-12.3); Monocytes Absolute Auto 0.8 X10*3/uL (0.1-1.2); Monocytes Percent Auto 7.5 % (2-11); Neutrophils Percent Auto 58.7 % (45-73); Platelet Count 290 X10*3/uL (160-400); Red Cell Distribution Width 13.5 % (11.0-16.0); White Blood Count 10.3 X10*3/uL (4.8-10.8)
[2023-09-19 18:32] LABS: Alanine Aminotransferase 28 U/L (0-31); Albumin Level 4.4 g/dL (3.5-5.0); Alkaline Phosphatase 94 U/L (39-117); Anion Gap 17 (12-20); Aspartate Amino Transferase 24 U/L (5-31); Bilirubin Total 0.5 mg/dL (0.0-1.0); Blood Urea Nitrogen 23 mg/dL (9-16); Calcium 10.2 mg/dL (8.4-10.2); Carbon Dioxide 25 mmol/L (22-29); Chloride 92 mmol/L (96-108); Creatinine Clr Calc Pharmacy 31.2; Estimated Glomerular Filt Rate 29; Glucose Random 623 mg/dL (60-115); Potassium 4.2 mmol/L (3.3-5.1); Sodium 130 mmol/L (135-145); Total Protein 8.2 g/dL (6.5-8.0)
[2023-09-19 18:34] LABS: Troponin-I High Sensitivity 2.9 ng/L (<3.5-17.0)
--- NOTE | 2023-09-19 19:01 | MHC.EDTECH ---
@[id number] called patient for lab work, no answer
[2023-09-19 19:18] VITALS: PULSE 64; RESP 18; O2SAT 94
[2023-09-19 19:41] LABS: VBG Base Excess 2.9 mmol/L; VBG HCO3 27 mmol/L (22-26); VBG pCO2 41 mmHg; VBG pH 7.42 (7.32-7.43); VBG pO2 58 mmHg
[2023-09-19 19:44] LABS: Venous Blood Gas Refer to POC result
[2023-09-19 19:48] LABS: Magnesium 2.2 mg/dL (1.6-2.6)
[2023-09-19 19:55] LABS: B Type Natriuretic Peptide < 10 pg/mL (<100)
[2023-09-19 20:46] LABS: Glucose, Whole Blood 547 mg/dL (60-115)
[2023-09-19] MEDS: Insulin Regular, Human 100 UNIT/ML 3 ML VIAL 10 UNIT IVPUSH (20:48)
[2023-09-19] MEDS: 0.9 % Sodium Chloride 1,000 ML 999 ML IVCONT (20:48)
[2023-09-19 21:52] LABS: Glucose, Whole Blood 393 mg/dL (60-115)
[2023-09-19 23:09] LABS: Glucose, Whole Blood 291 mg/dL (60-115)
[2023-09-19 23:52] VITALS: BP 128/72; PULSE 66; RESP 18; TEMP 37.2; O2SAT 97
[2023-09-19 23:54] VITALS: BP 128/72; PULSE 66; RESP 18; TEMP 37.2; O2SAT 97
== END 2023-09-19 23:55 | disposition home or self-care (01) ==
PROVIDERS: Emergency Medicine; Nurse Practitioner Family; Emergency Provider Emergency Medicine; PCP Internal Medicine
DX: R00.2 Palpitations (principal); R07.89 Other chest pain; R06.02 Shortness of breath; E11.65 Type 2 diabetes mellitus with hyperglycemia; Z79.4 Long term (current) use of insulin; Z79.899 Other long term (current) drug therapy
CPT/HCPCS: 36415; 71045; 80053; 82803; 82947; 83735; 83880; 84484; 85025; 93005; 96374; 99284; 99285

== ENCOUNTER → 2023-09-19 17:51 | Outpatient (BNV) | payer OTHER, SELFPAY ==
[2023-09-04 14:31] VITALS: BP 100/66; BP 104/60; BP 132/58; BMI 31.3
== END ==
PROVIDERS: Emergency Provider Emergency Medicine; PCP Internal Medicine; Visit Provider Internal Medicine
DX: R94.31 Abnormal electrocardiogram [ECG] [EKG] (principal)
CPT/HCPCS: 93010

== ENCOUNTER 2023-09-23 14:54 | Outpatient (AMB) | payer OTHER, SELFPAY ==
[2023-09-04 14:31] VITALS: BP 100/66; BP 104/60; BP 132/58; BMI 31.3
--- NOTE | 2023-09-23 14:54 | A.OFFVIS_ITS ---
Intake Visit Reasons: follow up/US Intake Note: Patient is present for follow up kidney stone/KUB (imaging 11/21/22) Urology Medication: Vitamin B6 Blood Thinner: aspirin Rad Technologist Required: No Accompanied by: Self / Same As Patient Allergies dulaglutide [From TRULICITY] Allergy (Unknown, Verified 09/23/23 19:40) DIARRHEA AND VOMITTING liraglutide [From VICTOZA] Allergy (Unknown, Verified 09/23/23 19:40) DIARRHEA AND VOMITTING, vomiting and diahrrea Medication List - Last Reconciled 09/23/23 by THUY Sumner- amlodipine 5 mg PO DAILY 90 days aspirin 81 mg PO DAILY 90 days blood pressure monitor (Blood Pressure Kit) As directed blood sugar diagnostic (FreeStyle Lite Strips) DIRECTED THREE TIMES A DAY blood-glucose meter,continuous ([employer] G6 [employer]) As directed blood-glucose sensor ([employer] G6 Sensor device) As directed every 10 days blood-glucose transmitter (Dexcom G6 Transmitter device) As directed one every 3 months docusate sodium 100 mg PO BEDTIME empagliflozin (Jardiance) 10 mg PO DAILY ezetimibe 10 mg PO DAILY 90 days furosemide 40 mg PO DAILY 90 days insulin aspart U-100 Up to 150 units via pump subcut daily; 30 days insulin syringe-needle U-100 (BD Insulin Syringe Ultra-Fine) As directed levothyroxine 125 mcg PO DAILY metoprolol tartrate 25 mg PO BID 90 days pantoprazole 40 mg PO DAILY polyethylene glycol 3350 (Miralax) 17 grams PO DAILY pyridoxine (vitamin B6) 100 mg PO DAILY 90 days rosuvastatin 40 mg PO BEDTIME sennosides (Natural Senna Laxative) 8.6 mg PO BEDTIME tirzepatide (Mounjaro) 2.5 mg (0.5 mL) subcut QWEEK HPI Comments Details: Mayela is a pleasant 58 year old female patient of Dr. Rubio. She has a past medical history of arthritis, carpal tunnel syndrome, coronary artery disease, depression, hypertension, hypercholesteremia, type 2 diabetes with diabetic polyneuropathy, vitamin B12 deficiency, and vitamin-D deficiency. She is being followed up on today via telehealth for her nephrolithiasis. When asked patient reports to be doing and feeling well. She discusses her recent emergency room visit due to hyperglycemia. She discusses making adjustments to her insulin pump. Recent renal ultrasound results reviewed with the patient today. Bilateral kidneys with no hydronephrosis. Right kidney with 1.1 cm nonobstructing calculus in the mid kidney. Left kidney with multiple nonobstructing renal calculi the largest measuring 1.1 cm in the mid kidney. She currently denies any urinary issues or concerns at this time. She denies nocturia, hematuria, dysuria, foul smelling urine, changes to urinary stream, flank pain, fever, and or chills. Discussed at length increased stone burden. Discussed risks and benefits of further workup with CT KUB verses surveillance monitoring. Discussed possible near future surgical intervention for nephrolithiasis with ureteroscopy verses ESWL. She otherwise offers no other issues or concerns at this time. [facility] Medical History CKD (chronic kidney disease) stage 3, GFR 30-59 ml/min Bacterial conjunctivitis of both eyes Well woman exam Left navicular fracture of foot Vitamin B12 deficiency Thyroid nodule History of Clostridium difficile infection Coronary artery disease Hypercholesterolemia Depression Kidney stone Carpal tunnel syndrome Arthritis 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 Vitamin D deficiency Essential hypertension Type 2 diabetes mellitus with hyperglycemia Surgical History Hx of colonoscopy S/P triple vessel bypass Hx of toe surgery Hx of thyroidectomy History of renal stent Hx of section Hx of myomectomy Hx of tonsillectomy Family History Father DM (diabetes mellitus) Hypertension High cholesterol Spina bifida Kidney stone CAD (coronary artery disease) Mother DM (diabetes mellitus) Hypertension High cholesterol CAD (coronary artery disease) Bipolar 1 disorder Maternal Aunt Lung cancer Maternal Grandfather Lung cancer Other Mental health disorder Social History Household Members: Children Household Members Other:: daughter Housing: Apartment Do you presently have visiting nurse or other home services: No Alcohol intake: never Patient Tobacco Use Status: Never used Tobacco e-Cigarette/Vaping Use: Never Used Second Hand Smoke Exposure: No service: No Current occupational status: employed Cognitive needs: No Hearing needs: No Vision needs: Yes Female Reproductive History Menstrual Age of Menarche: 11 Review of Systems Const Reports as per HPI Eyes Reports no additional complaints ENT Reports no additional complaints Card Reports as per HPI Resp Reports no additional complaints GI Reports no additional complaints Reports as per HPI Musc Reports no additional complaints Neuro Reports no additional complaints Psych Reports no additional complaints Endo Details: Patient reports taking medications for Daibetes and reports sugars to be controlled Reports as per HPI Aller/Immun Reports no additional complaints Physical Exam Const General: cooperative Resp Effort & Inspection: able to speak in complete sentences Psych Attitude: cooperative Thought process: Normal thought process present Thought content: Normal thought content present Insight: Fair insight present (Psych) Judgement: Fair judgement present (Psych) Telehealth Telehealth Telehealth Platform: Telephone Location of provider rendering services: practice address Location of patient: address on file Patient Identification confirmed using: Name, : Yes Telehealth method: video Patient verbally consented to treatment: Yes Patient verbally consented to billing insurance company: Yes Patient informed of any privacy concerns related to visit: Yes Minutes spent on Phone/Video with Pt.: 15 Results Reviewed Results Reviewed: Date of Service: 09/11/23 EXAMINATION: US RETROPERITONEAL LIMITED (RENAL ONLY) FINDINGS: RIGHT KIDNEY: 11.0 x 5.5 x 4.2 cm (SAG x AP x TRV). The kidney is normal in size and echogenicity. Renal cortical thickness is normal. No focal parenchymal lesions or hydronephrosis. The kidney has a slightly lobulated contour. 1.1 x 0.5 x 1.0 cm nonobstructing calculus is seen in the mid kidney. LEFT KIDNEY: 11.8 x 5.3 x 4.1 cm (SAG x AP x TRV). The kidney is normal in size and echogenicity. Renal cortical thickness is normal. No focal parenchymal lesions or hydronephrosis. The kidney has a slightly lobulated contour. There are multiple nonobstructing renal calculi, the largest is a 1.0 x 0.9 x 1.1 cm nonobstructing calculus in the mid kidney IMPRESSION: Bilateral renal calculi. Assessment & Plan Assessment & Plan (1) Renal calculus, bilateral: Code(s): N20.0 - Calculus of kidney Category: Medical Plan Recent renal ultrasound results reviewed with the patient today; as noted above. Discussed at length importance of drinking water daily. Discussed obtaining CT KUB for further assessment evaluation. Patient currently denies any bothersome urinary issues or concerns. She reports be happy with current voiding parameter. Discussed increased stone burden noted bilaterally. Will obtain CT KUB for further assessment evaluation. Follow-up in 1-2 months with imaging to be completed prior; or sooner with any issues, concerns, and or questions. Orders: Orders CT kidney stone Today N20.0 - Calculus of kidney Patient Instructions: The patient had an opportunity to ask questions regarding the treatment plan. All questions were answered. Physical exam, labs, and imaging were discussed and reviewed in detail. As well as risks, benefits, and discussion of treatment choices. No major barriers to understanding were identified. The patient expressed understanding and agreement with the above treatment plan. The patient was made aware they should contact our office by phone for worsening of their current condition, the appearance of new symptoms, or with any questions or concerns. Compliance is encouraged with any medications and follow up testing that is ordered. It is a privilege to be allowed the opportunity to participate in? your urological care.? Again, if you have any questions or concerns If you have any questions or concerns please do not hesitate to contact me. The office is [phone]. This note is constructed using voice recognition software. While every effort has been made to ensure accuracy geophysical laboratory supervisor errors may have been included. Yours sincerely, GAURAV Sumner Coding Level of Care Code Tele Est Pt Level 3 (96386) Diagnoses Renal calculus, bilateral N20.0
== END 2023-09-23 15:47 | disposition home or self-care (01) ==
LOC: HO.HUSH 14:54
PROVIDERS: PCP Internal Medicine; Visit Provider Nurse Practitioner Family
DX: N20.0 Calculus of kidney (principal)
CPT/HCPCS: 99213

== ENCOUNTER → 2023-09-23 14:54 | Outpatient (BNVA) | payer OTHER, SELFPAY ==
[2023-09-04 14:31] VITALS: BP 100/66; BP 104/60; BP 132/58; BMI 31.3
== END ==
PROVIDERS: PCP Internal Medicine; Visit Provider Nurse Practitioner Family

== ENCOUNTER 2023-09-26 16:14 | Outpatient (AMB) | payer OTHER, SELFPAY ==
[2023-09-04 14:31] VITALS: BP 100/66; BP 104/60; BP 132/58; BMI 31.3
[2023-09-26 16:16] VITALS: BP 118/70; PULSE 64; O2SAT 97; BMI 32.1
--- NOTE | 2023-09-26 16:16 | HO.NEPHOV_ITS ---
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 Went to ER Creatinine was 1.8 ( new bump) Treated with IVF , Blood sugar was controlled to 260 and discharged home No repeat creatinine levels thus far. Admits to drinking 6- 10 bottles of water - includes anna bigg, pepsi and sprite [facility] Medical History CKD (chronic kidney disease) stage 3, GFR 30-59 ml/min Bacterial conjunctivitis of both eyes Well woman exam Left navicular fracture of foot Vitamin B12 deficiency Thyroid nodule History of Clostridium difficile infection Coronary artery disease Hypercholesterolemia Depression Kidney stone Carpal tunnel syndrome Arthritis 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 Vitamin D deficiency Essential hypertension Type 2 diabetes mellitus with hyperglycemia Surgical History Hx of colonoscopy S/P triple vessel bypass Hx of toe surgery Hx of thyroidectomy History of renal stent Hx of section Hx of myomectomy Hx of tonsillectomy Family History Father DM (diabetes mellitus) Hypertension High cholesterol Spina bifida Kidney stone CAD (coronary artery disease) Mother DM (diabetes mellitus) Hypertension High cholesterol CAD (coronary artery disease) Bipolar 1 disorder Maternal Aunt Lung cancer Maternal Grandfather Lung cancer Other Mental health disorder Social History Household Members: Children Household Members Other:: daughter Housing: Apartment Do you presently have visiting nurse or other home services: No Alcohol intake: never Patient Tobacco Use Status: Never used Tobacco e-Cigarette/Vaping Use: Never Used Second Hand Smoke Exposure: No service: No Current occupational status: employed Cognitive needs: No Hearing needs: No Vision needs: Yes Female Reproductive History Menstrual Age of Menarche: 11 Physical Exam Vital Signs: Last Vital Signs Pulse 64 09/26/23 16:16 BP 118/70 09/26/23 16:16 Pulse Ox 97 09/26/23 16:16 Oxygen Delivery Method Room Air 09/26/23 16:16 BMI result Body Mass Index 32.1 Const General: comfortable Nutritional Appearance: well nourished Orientation/consciousness: patient oriented x3 HEENT Head: No normal to inspection Mouth: moist mucous membranes Neck Neck: Yes supple and Yes no JVD Resp Auscultation: clear to auscultation bilaterally, no rales and rub present Cardio Jugular venous distension: no JVD Palpation: no palpable S3 and no palpable S4 Heart sounds: no rubs GI Palpation (GI): Soft to palpation and nontender Percussion: No Fluid wave present General: Yes no CVA tenderness Back/Spine/Pelvis Back: no CVA tenderness Skin General skin exam: no rashes or lesions noted Neuro General: patient oriented x3 Extrem General: Yes no pedal edema and No clubbing Results Reviewed Results Reviewed: August 2023 RIGHT KIDNEY: 11.0 x 5.5 x 4.2 cm (SAG x AP x TRV). The kidney is normal in size and echogenicity. Renal cortical thickness is normal. No focal parenchymal lesions or hydronephrosis. The kidney has a slightly lobulated contour. 1.1 x 0.5 x 1.0 cm nonobstructing calculus is seen in the mid kidney. LEFT KIDNEY: 11.8 x 5.3 x 4.1 cm (SAG x AP x TRV). The kidney is normal in size and echogenicity. Renal cortical thickness is normal. No focal parenchymal lesions or hydronephrosis. The kidney has a slightly lobulated contour. There are multiple nonobstructing renal calculi, the largest is a 1.0 x 0.9 x 1.1 cm nonobstructing calculus in the mid kidney US/US renal BI IMPRESSION: Bilateral renal calculi. Nephrology Results: Hgb 14.2 g/dl (12.0-16.0) 09/19/23 WBC 10.3 X10*3/uL (4.8-10.8) 09/19/23 Plt Count 290 X10*3/uL (160-400) 09/19/23 Sodium 130 mmol/L (135-145) L 09/19/23 Potassium 4.2 mmol/L (3.3-5.1) 09/19/23 Chloride 92 mmol/L (96-108) L 09/19/23 Carbon Dioxide 25 mmol/L (22-29) 09/19/23 BUN 23 mg/dL (9-16) H 09/19/23 Creatinine 1.81 mg/dL (0.5-1.4) H 09/19/23 Calcium 10.2 mg/dL (8.4-10.2) 09/19/23 Renal US 09/11/23 Assessment & Plan Assessment & Plan (1) CKD (chronic kidney disease) stage 3, GFR 30-59 ml/min: Code(s): N18.30 - Chronic kidney disease, stage 3 unspecified Category: Medical (2) Renal calculus, bilateral: Code(s): N20.0 - Calculus of kidney Category: Medical Plan Darius in a setting of hyperglycemia Repeat labs ordered CKD - Most likely has diabetic kidney disease Fluctuation in creatinine due to hemodynamics Encouraged low salt diet Avoid nephrotoxins including NSAIDS Maintain A1C < 7% Concur with current medical management including Jardiance Nephrolithiasis 24 hr urine studies reviewed Encouraged to main a urine output of > 2L per 24 hrs Avoid pepsi OK to drink lemonade Orders: Orders Basic Metabolic Panel Today N18.30 - Chronic kidney disease, stage 3 unspecified Basic Metabolic Panel 3 Months N18.30 - Chronic kidney disease, stage 3 unspecified Coding Level of Care Code Est Pt Level 4 (83830) Diagnoses CKD (chronic kidney disease) stage 3, GFR 30-59 ml/min N18.30 Renal calculus, bilateral N20.0
== END 2023-09-26 16:40 | disposition home or self-care (01) ==
PROVIDERS: PCP Internal Medicine; Visit Provider Internal Medicine Hypertension Specialist
DX: N18.30 Chronic kidney disease, stage 3 unspecified (principal); N20.0 Calculus of kidney
CPT/HCPCS: 99214

== ENCOUNTER → 2023-09-26 16:14 | Outpatient (BNVA) | payer OTHER, SELFPAY ==
[2023-09-04 14:31] VITALS: BP 100/66; BP 104/60; BP 132/58; BMI 31.3
== END ==
PROVIDERS: PCP Internal Medicine; Visit Provider Internal Medicine Hypertension Specialist
DX: E11.42 Type 2 diabetes mellitus with diabetic polyneuropathy (principal); E11.65 Type 2 diabetes mellitus with hyperglycemia; N18.30 Chronic kidney disease, stage 3 unspecified; N20.0 Calculus of kidney; Z79.4 Long term (current) use of insulin
CPT/HCPCS: 99212

== ENCOUNTER → 2023-10-10 16:00 | Outpatient (BNV) | payer OTHER, SELFPAY ==
[2023-09-04 14:31] VITALS: BP 100/66; BP 104/60; BP 132/58; BMI 31.3
== END ==
PROVIDERS: PCP Internal Medicine; Referring Provider Obstetrics & Gynecology; Visit Provider Radiology Diagnostic Radiology
DX: Z12.31 Encounter for screening mammogram for malignant neoplasm of breast (principal)
CPT/HCPCS: 77063; 77067

== ENCOUNTER 2023-10-10 16:03 | Outpatient (REF) | payer OTHER, SELFPAY ==
[2022-09-28 15:43] VITALS: BP 104/60; BP 112/56; BP 132/58; BMI 31.3
--- NOTE | ~2023-10-10 | MM_ITS ---
EXAMINATION: MM SCREENING DIGITAL BREAST TOMOSYNTHESIS, BILATERAL CLINICAL INFORMATION: Screening. Asymptomatic. No family history of breast carcinoma. Most recent Tyrer-Cuzick Model is 7%. COMPARISON: Mammography: 10/05/2022, 09/29/2021, 09/27/2020, 07/10/2018, and dating back to 2016. TECHNIQUE: Digital breast tomosynthesis is performed in both the craniocaudal and mediolateral oblique views along with computer-aided detection (CAD). Synthesized 2D images are generated from the tomosynthesis. In addition, an additional right CC view was obtained. FINDINGS: There are scattered areas of fibroglandular density (ACR BI-RADS breast composition Category b). There is a large irregular mass with associated parenchymal distortion and mild nipple retraction in the posterior one third of the right breast directly behind the nipple, with estimated size of 2.9 x 3.0 x 3.3 cm. There are associated were microcalcifications. This is a BI-RADS 5 lesion. Recommend spot compression views in the CC and MLO projections, as well as a full-field right ML view, and diagnostic right breast ultrasound in the retroareolar region with evaluation of the right axilla as well. No right axillary adenopathy or additional abnormalities in the right breast are evident on this mammogram. In the left breast, there is a focal asymmetry in the slightly upper slightly medial left breast, just superior and just medial to the nipple line, middle one third. Recommend spot compression views in the CC and MLO projections, as well as a full-field left mediolateral view. No lymphadenopathy is evident. No left skin abnormalities. There are vascular calcifications in both breasts. MM/MM tomosynthesis screening BI IMPRESSION: -Extremely suspicious irregular mass in the retroareolar central posterior right breast measuring up to 2.9 x 3.0 x 3.3 cm, with some associated nipple retraction. This is a BI-RADS 5 lesion. Recommend additional imaging as detailed above. No lymphadenopathy in the right axilla seen on mammography. -Focal asymmetry in the slightly upper slightly medial left breast for which diagnostic views are recommended with ultrasound to follow if necessary. See above. ASSESSMENT: BI-RADS BI-RADS 5 - Highly suggestive of malignancy RECOMMENDATION: 1. Additional views of both breasts. 2. Targeted bilateral ultrasound if warranted after review of the additional views. 3. Radiology department staff will contact the patient for additional imaging. Additional Imaging required
== END 2023-10-10 16:04 | disposition home or self-care (01) ==
LOC: HO.MAMMO 16:03
PROVIDERS: PCP Internal Medicine; Referring Provider Obstetrics & Gynecology; Visit Provider Internal Medicine
DX: Z12.31 Encounter for screening mammogram for malignant neoplasm of breast (principal)
CPT/HCPCS: 77063; 77067

== ENCOUNTER 2023-10-15 12:41 | Outpatient (AMB) | payer OTHER, SELFPAY ==
[2023-09-04 14:31] VITALS: BP 100/66; BP 104/60; BP 132/58; BMI 31.3
--- NOTE | 2023-10-15 12:39 | A.OFFVIS_ITS ---
Intake Visit Reasons: Mammo results Allergies dulaglutide [From TRULICITY] Allergy (Unknown, Verified 09/26/23 16:17) DIARRHEA AND VOMITTING liraglutide [From VICTOZA] Allergy (Unknown, Verified 09/26/23 16:17) DIARRHEA AND VOMITTING, vomiting and diahrrea HPI Comments Details: The patient is schedule telehealth visits regarding abnormal mammogram. A screening mammogram done few days ago showed the following: IMPRESSION: -Extremely suspicious irregular mass in the retroareolar central posterior right breast measuring up to 2.9 x 3.0 x 3.3 cm, with some associated nipple retraction. This is a BI-RADS 5 lesion. Recommend additional imaging as detailed above. No lymphadenopathy in the right axilla seen on mammography. -Focal asymmetry in the slightly upper slightly medial left breast for which diagnostic views are recommended with ultrasound to follow if necessary. See above. ASSESSMENT: BI-RADS BI-RADS 5 - Highly suggestive of malignancy RECOMMENDATION: 1. Additional views of both breasts. 2. Targeted bilateral ultrasound if warranted after review of the additional views. 3. Radiology department staff will contact the patient for additional imaging. Additional Imaging required COUNTS INCLUDE 234 BEDS AT THE [facility] Medical History CKD (chronic kidney disease) stage 3, GFR 30-59 ml/min Bacterial conjunctivitis of both eyes Well woman exam Left navicular fracture of foot Vitamin B12 deficiency Thyroid nodule History of Clostridium difficile infection Coronary artery disease Hypercholesterolemia Depression Kidney stone Carpal tunnel syndrome Arthritis 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 Vitamin D deficiency Essential hypertension Type 2 diabetes mellitus with hyperglycemia Surgical History Hx of colonoscopy S/P triple vessel bypass Hx of toe surgery Hx of thyroidectomy History of renal stent Hx of section Hx of myomectomy Hx of tonsillectomy Family History Father DM (diabetes mellitus) Hypertension High cholesterol Spina bifida Kidney stone CAD (coronary artery disease) Mother DM (diabetes mellitus) Hypertension High cholesterol CAD (coronary artery disease) Bipolar 1 disorder Maternal Aunt Lung cancer Maternal Grandfather Lung cancer Other Mental health disorder Social History Household Members: Children Household Members Other:: daughter Housing: Apartment Do you presently have visiting nurse or other home services: No Alcohol intake: never Patient Tobacco Use Status: Never used Tobacco e-Cigarette/Vaping Use: Never Used Second Hand Smoke Exposure: No service: No Current occupational status: employed Cognitive needs: No Hearing needs: No Vision needs: Yes Female Reproductive History Menstrual Age of Menarche: 11 Review of Systems Const All systems reviewed & are unremarkable except as noted in HPI and below Reports as per HPI and Reports no additional complaints GI Reports no additional complaints Reports no additional complaints Telehealth Telehealth Telehealth Platform: Telephone Location of provider rendering services: practice address Location of patient: address on file Patient Identification confirmed using: Name, : Yes Telehealth method: voice only Patient verbally consented to treatment: Yes Patient verbally consented to billing insurance company: Yes Patient informed of any privacy concerns related to visit: Yes Assessment & Plan Assessment & Plan (1) Abnormal finding on mammography: Comment: BI-RADS 5 highly suspicious for malignancy Code(s): R92.8 - Other abnormal and inconclusive findings on diagnostic imaging of breast Category: Medical Plan: Discussed with the patient the finding on abnormal screening mammogram and the recommendation for additional bilateral diagnostic view was with bilateral breast ultrasound, old imaging ordered and referral to general surgery placed. Instructed the patient to call our office back in case diagnostic bilateral mammogram and ultrasound and/or the referral appointment is not scheduled, missed or canceled so that we will assist on rescheduling another appointment, the patient verbalized understanding agreed with the plan. I spent a total of 20 minutes reviewing the chart, talking to the patient via phone and documenting in the medical record. Orders: Orders MM tomosynthesis diagnostic BI Today R92.8 - Other abnormal and inconclusive findings on diagnostic imaging of breast US breast LT complete Today R92.8 - Other abnormal and inconclusive findings on diagnostic imaging of breast US breast RT complete Today R92.8 - Other abnormal and inconclusive findings on diagnostic imaging of breast Coding Level of Care Code Tele Est Pt Level 1 (52075) Diagnoses Abnormal finding on mammography R92.8
== END 2023-10-15 15:43 | disposition home or self-care (01) ==
LOC: HO.HWS 12:41
PROVIDERS: PCP Internal Medicine; Visit Provider Obstetrics & Gynecology
DX: R92.8 Other abnormal and inconclusive findings on diagnostic imaging of breast (principal)
CPT/HCPCS: 99211

== ENCOUNTER → 2023-10-15 12:41 | Outpatient (BNVA) | payer OTHER, SELFPAY ==
[2023-09-04 14:31] VITALS: BP 100/66; BP 104/60; BP 132/58; BMI 31.3
== END ==
PROVIDERS: PCP Internal Medicine; Visit Provider Obstetrics & Gynecology

== ENCOUNTER 2023-10-30 13:29 | Outpatient (REF) | payer OTHER, SELFPAY ==
[2023-09-04 14:31] VITALS: BP 100/66; BP 104/60; BP 132/58; BMI 31.3
--- NOTE | ~2023-10-30 | MM_ITS ---
EXAMINATION: MM DIAGNOSTIC DIGITAL BREAST TOMOSYNTHESIS, BILATERAL US BREAST LIMITED, BILATERAL MAMMOGRAPHY: CLINICAL INFORMATION: Follow-up BI-RADS 5 lesion right breast retroareolar central posterior aspect measuring up to 3.3 cm. Also evaluate focal asymmetry slightly upper slightly medial left breast. COMPARISON: Mammography: 10/10/2023, 10/05/2022, 09/29/2021, 09/27/2020, 07/10/2018, and dating back to 2017. TECHNIQUE: Digital breast tomosynthesis is performed in the following views: Full-field 3-D bilateral mediolateral views, as well as 3-D spot compression views bilateral CC, and bilateral MLO projections. This was followed by diagnostic bilateral targeted breast ultrasound. FINDINGS: There are scattered areas of fibroglandular density (ACR BI-RADS breast composition Category b). RIGHT BREAST: -Images demonstrate and confirm the presence of an irregular large BI-RADS 5 mass in the posterior central retroareolar region measuring approximately 2.9 x 3.0 x 3.3 cm. There are associated rare microcalcifications which may be vascular. Directly retroareolar there are linear possible ductal microcalcifications. There is mild nipple retraction and skin thickening associated in the inferior aspect of the right breast. No axillary adenopathy is evident. No additional findings. This will be evaluated with ultrasound. LEFT BREAST: -Spot compression views demonstrate no definite persistence of focal asymmetric density in the retroareolar slightly medial slightly superior left breast. There are vascular calcifications. No definite mass, architectural distortion, or suspicious microcalcifications. Mammographic finding appears to represent overlapping superimposed tissue/superimposition artifact. No definite skin or axillary abnormality. To be cautious we will evaluate this region with ultrasound. ULTRASOUND: CLINICAL INFORMATION: BI-RADS 5 mass right breast. Possible focal asymmetry upper medial left breast. COMPARISON: No prior ultrasound. TECHNIQUE: Targeted sonographic evaluation bilateral breasts was performed using a high frequency linear transducer. Selected archived documentation. FINDINGS: RIGHT BREAST: -There is a large extremely hypoechoic and extremely irregular infiltrative lobular mass in the 8:00 axis of the right breast, 2 cm from the nipple, with intense shadowing sonographically, and no definite internal color Doppler flow. There is peripheral increased color Doppler flow present. There is echogenic fat surrounding the mass which appears somewhat desmoplastic. This mass measures approximately 2.8 x 2.6 x 3.4 cm on ultrasound. It appears to extend to the pectoralis muscle with mild pectoralis tenting. Cannot exclude invasion or adhesion. Imaging of the right axilla demonstrates no pathologic lymphadenopathy. LEFT BREAST: There is a mixture of fatty and fibroglandular tissue. No suspicious mass is seen. There is no pathologic acoustic shadowing. There is no cystic abnormality. There is no correlate to the possible region of architectural distortion in the slightly upper slightly medial left breast. This is consistent with benign overlapping tissue pattern. MM/MM tomosynthesis added view BI IMPRESSION: -BI-RADS 5 infiltrative appearing mass measuring up to 3.4 cm in the retroareolar 8:00 region right breast. There is tenting of the pectoralis fascia with possible adhesion or invasion. Recommend ultrasound-guided biopsy. -No abnormal right axillary lymph nodes. -No suspicious abnormalities in the left breast. Findings and recommendations discussed with the patient by the technologist. OVERALL ASSESSMENT: Mammography: BI-RADS 5 - Highly suggestive of malignancy Ultrasound: BI-RADS 5 - Highly suggestive of malignancy RECOMMENDATION: Biopsy recommended
== END 2023-10-30 13:30 | disposition home or self-care (01) ==
LOC: HO.MAMMO 13:29
PROVIDERS: PCP Internal Medicine; Visit Provider Obstetrics & Gynecology
DX: R92.8 Other abnormal and inconclusive findings on diagnostic imaging of breast (principal)
CPT/HCPCS: 76642; 77062; 77066

== ENCOUNTER → 2023-10-30 13:30 | Outpatient (BNV) | payer OTHER, SELFPAY ==
[2023-09-04 14:31] VITALS: BP 100/66; BP 104/60; BP 132/58; BMI 31.3
== END ==
PROVIDERS: PCP Internal Medicine; Visit Provider Radiology Diagnostic Radiology
DX: N63.15 Unspecified lump in the right breast, overlapping quadrants (principal)
CPT/HCPCS: 76642; 77062; 77066

== ENCOUNTER 2023-10-31 12:18 | Outpatient (AMB) | payer OTHER, SELFPAY ==
[2023-09-04 14:31] VITALS: BP 100/66; BP 104/60; BP 132/58; BMI 31.3
--- NOTE | 2023-10-31 12:18 | A.OFFVIS_ITS ---
Intake Visit Reasons: results/DO NOT RS Allergies dulaglutide [From TRULICITY] Allergy (Unknown, Verified 09/26/23 16:17) DIARRHEA AND VOMITTING liraglutide [From VICTOZA] Allergy (Unknown, Verified 09/26/23 16:17) DIARRHEA AND VOMITTING, vomiting and diahrrea HPI Comments Details: The patient is scheduled a tele health visit to discuss the results of the additional mammographic views and breast ultrasound which showed the following: -BI-RADS 5 infiltrative appearing mass measuring up to 3.4 cm in the retroareolar 8:00 region right breast. There is tenting of the pectoralis fascia with possible adhesion or invasion. Recommend ultrasound-guided biopsy. -No abnormal right axillary lymph nodes. -No suspicious abnormalities in the left breast. [facility] Medical History CKD (chronic kidney disease) stage 3, GFR 30-59 ml/min Bacterial conjunctivitis of both eyes Well woman exam Left navicular fracture of foot Vitamin B12 deficiency Thyroid nodule History of Clostridium difficile infection Coronary artery disease Hypercholesterolemia Depression Kidney stone Carpal tunnel syndrome Arthritis 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 Vitamin D deficiency Essential hypertension Type 2 diabetes mellitus with hyperglycemia Surgical History Hx of colonoscopy S/P triple vessel bypass Hx of toe surgery Hx of thyroidectomy History of renal stent Hx of section Hx of myomectomy Hx of tonsillectomy Family History Father DM (diabetes mellitus) Hypertension High cholesterol Spina bifida Kidney stone CAD (coronary artery disease) Mother DM (diabetes mellitus) Hypertension High cholesterol CAD (coronary artery disease) Bipolar 1 disorder Maternal Aunt Lung cancer Maternal Grandfather Lung cancer Other Mental health disorder Social History Household Members: Children Household Members Other:: daughter Housing: Apartment Do you presently have visiting nurse or other home services: No Alcohol intake: never Patient Tobacco Use Status: Never used Tobacco e-Cigarette/Vaping Use: Never Used Second Hand Smoke Exposure: No service: No Current occupational status: employed Cognitive needs: No Hearing needs: No Vision needs: Yes Female Reproductive History Menstrual Age of Menarche: 11 Review of Systems Const All systems reviewed & are unremarkable except as noted in HPI and below Reports as per HPI and Reports no additional complaints GI Reports no additional complaints Reports no additional complaints Telehealth Telehealth Telehealth Platform: Telephone Location of provider rendering services: practice address Location of patient: address on file Patient Identification confirmed using: Name, : Yes Telehealth method: voice only Patient verbally consented to treatment: Yes Patient verbally consented to billing insurance company: Yes Patient informed of any privacy concerns related to visit: Yes Assessment & Plan Assessment & Plan (1) Abnormal finding on mammography: Comment: BI-RADS 5 highly suspicious for malignancy Code(s): R92.8 - Other abnormal and inconclusive findings on diagnostic imaging of breast Category: Medical Plan: Discussed with the patient the results of the mammogram and right breast ultrasound showing BI-RADS 5 highly suspicious for malignancy, the patient is scheduled with Dr. Shine on 11/05 for a consult and a biopsy. All questions answered, the patient verbalized understanding. Instructed the patient to call our office back in case a referral appointment is missed or canceled so that we will assist on rescheduling another appointment, the patient verbalized u nderstanding agreed with the plan. I spent a total of 20 minutes reviewing the chart, talking to the patient via phone and documenting in the medical record. Coding Level of Care Code Tele Est Pt Level 1 (40123) Diagnoses Abnormal finding on mammography R92.8
== END 2023-10-31 15:09 | disposition home or self-care (01) ==
LOC: HO.HWS 12:18
PROVIDERS: PCP Internal Medicine; Visit Provider Obstetrics & Gynecology
DX: R92.8 Other abnormal and inconclusive findings on diagnostic imaging of breast (principal)
CPT/HCPCS: 99211

== ENCOUNTER → 2023-10-31 12:18 | Outpatient (BNVA) | payer OTHER, SELFPAY ==
[2023-09-04 14:31] VITALS: BP 100/66; BP 104/60; BP 132/58; BMI 31.3
== END ==
PROVIDERS: PCP Internal Medicine; Visit Provider Obstetrics & Gynecology

== ENCOUNTER 2023-11-06 08:33 | Outpatient (AMB) | payer OTHER, SELFPAY ==
[2023-09-04 14:31] VITALS: BP 100/66; BP 104/60; BP 132/58; BMI 31.3
--- NOTE | 2023-11-06 08:35 | A.OFFVIS_ITS ---
Vital Signs 11/06/23 08:39 Height 5 ft 1 in Weight 165 lb BMI 31.2 BP 152/72 H Blood Pressure Location Rt brachial Position Sitting Pulse 71 Intake Visit Reasons: 8:00 mass Right breast Intake Note: This patient presents for a breast consult for right breast Ultrasound guided biopsy for mass at 8 o'clock. Pt c/o; reports occasional pain right breast,reports no nipple discharge, reports no change in shape or size. Spanisher Required: No Accompanied by: Other Relationship Allergies dulaglutide [From TRULICITY] Allergy (Unknown, Verified 09/26/23 16:17) DIARRHEA AND VOMITTING liraglutide [From VICTOZA] Allergy (Unknown, Verified 09/26/23 16:17) DIARRHEA AND VOMITTING, vomiting and diahrrea Medication List - Last Reconciled 11/06/23 by Blas Shine MD amlodipine 5 mg PO DAILY 90 days aspirin 81 mg PO DAILY 90 days blood pressure monitor (Blood Pressure Kit) As directed blood sugar diagnostic (FreeStyle Lite Strips) DIRECTED THREE TIMES A DAY blood-glucose meter,continuous (DexProject [employer] Digital Incubator G6 Plant Sprayer) As directed blood-glucose sensor (Dexcom G6 Sensor device) As directed every 10 days blood-glucose transmitter (Dexcom G6 Transmitter device) As directed one every 3 months docusate sodium 100 mg PO BEDTIME empagliflozin (Jardiance) 10 mg PO DAILY ezetimibe 10 mg PO DAILY 90 days furosemide 40 mg PO DAILY 90 days insulin aspart U-100 Up to 150 units via pump subcut daily; 30 days insulin syringe-needle U-100 (BD Insulin Syringe Ultra-Fine) As directed levothyroxine 125 mcg PO DAILY metoprolol tartrate 25 mg PO BID 90 days pantoprazole 40 mg PO DAILY polyethylene glycol 3350 (Miralax) 17 grams PO DAILY pyridoxine (vitamin B6) 100 mg PO DAILY 90 days rosuvastatin 40 mg PO BEDTIME sennosides (Natural Senna Laxative) 8.6 mg PO BEDTIME tirzepatide (Mounjaro) 2.5 mg (0.5 mL) subcut QWEEK HPI HPI 8:00 mass Right breast: Details: 58-year-old female referred for a right breast mass. She had a screening mammogram done last month which showed a right breast mass. She was brought in for targeted studies and both the repeat mammogram and ultrasound showed this large, hypoechoic irregular infiltrative lobular mass at the 8 o'clock position of the right breast, measuring about 2.8 x 2.6 x 3.4. This appeared to extend into the pectoralis muscle mild pectoralis stenting. She has had yearly mammograms which did not reveal any obvious lesions in the past Her menarche was at age of 11. Her 1st was at age of 20. She had 6 pregnancies. She had menopause at age of 54. Denies any family history of breast cancer. She had a three-vessel CABG 2 years ago. She had stents placed before that.. She had an SC in 2015. [facility] Medical History Breast mass, right CKD (chronic kidney disease) stage 3, GFR 30-59 ml/min Bacterial conjunctivitis of both eyes Well woman exam Left navicular fracture of foot Vitamin B12 deficiency Thyroid nodule History of Clostridium difficile infection Coronary artery disease Hypercholesterolemia Depression Kidney stone Carpal tunnel syndrome Arthritis 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 Vitamin D deficiency Essential hypertension Type 2 diabetes mellitus with hyperglycemia Surgical History Hx of colonoscopy S/P triple vessel bypass Hx of toe surgery Hx of thyroidectomy History of renal stent Hx of section Hx of myomectomy Hx of tonsillectomy Family History Father DM (diabetes mellitus) Hypertension High cholesterol Spina bifida Kidney stone CAD (coronary artery disease) Mother DM (diabetes mellitus) Hypertension High cholesterol CAD (coronary artery disease) Bipolar 1 disorder Maternal Aunt Lung cancer Maternal Grandfather Lung cancer Other Mental health disorder Social History Household Members: Children Household Members Other:: daughter Housing: Apartment Do you presently have visiting nurse or other home services: No Alcohol intake: never Patient Tobacco Use Status: Never used Tobacco e-Cigarette/Vaping Use: Never Used Second Hand Smoke Exposure: No service: No Current occupational status: employed Cognitive needs: No Hearing needs: No Vision needs: Yes Female Reproductive History Menstrual Age of Menarche: 11 Total pregnancies: 3 Review of Systems Const Denies chills and Denies fever(s) Card Denies chest pain, Denies dyspnea and Denies dyspnea on exertion Resp Denies cough, Denies dyspnea and Denies dyspnea on exertion GI Denies hematochezia, Denies change in bowel habits and Reports constipation (Well-controlled with stool softeners) Denies hematuria Musc Denies back pain and Denies limited range of motion Neuro Denies focal weakness and Denies convulsions Psych Denies depression and Denies mood swings Physical Exam Vital Signs: Last Vital Signs Pulse 71 11/06/23 08:39 BP 152/72 H 11/06/23 08:39 BMI result Body Mass Index 31.2 Const General: comfortable and no acute distress Orientation/consciousness: patient oriented x3 Neck Neck: Yes no lymphadenopathy Chest Other: Surgical scar on sternum Vague palpable mass in the right breast, at around the 5 o'clock position near the nipple areolar complex, no axillary lymphadenopathy, palpable mass on the left breast Resp Auscultation: clear to auscultation bilaterally Cardio Rhythm: regular rhythm GI Palpation (GI): Soft to palpation, nontender and no guarding Neuro General: patient oriented x3 Assessment & Plan Assessment & Plan (1) Breast mass, right: Code(s): N63.10 - Unspecified lump in the right breast, unspecified quadrant Category: Medical Plan: She has a right breast mass on ultrasound and mammogram. Ultrasound biopsy has been recommended by the radiologist. I explained to her that technique of this procedure. I will see her in the office to discuss the path report She understands the plan well. She understands that the mass appears very suspicious for a malignant neoplastic process. Orders: Orders US breast ndl core biopsy RT 11/05/23 N63.10 - Unspecified lump in the right breast, unspecified quadrant Coding Level of Care Code New Pt Level 3 (11795) Diagnoses Breast mass, right N63.10
[2023-11-06 08:39] VITALS: BP 152/72; PULSE 71; BMI 31.2
== END 2023-11-06 08:58 | disposition home or self-care (01) ==
PROVIDERS: PCP Internal Medicine; Visit Provider Surgery
DX: N63.13 Unspecified lump in the right breast, lower outer quadrant (principal)
CPT/HCPCS: 99203

== ENCOUNTER 2023-11-06 09:08 | Outpatient (REF) | payer OTHER, SELFPAY ==
[2023-09-04 14:31] VITALS: BP 100/66; BP 104/60; BP 132/58; BMI 31.3
--- NOTE | ~2023-11-06 | MM_ITS ---
PROCEDURE: US GUIDED BREAST BIOPSY, RIGHT CLINICAL INFORMATION: Large irregular infiltrative mass right breast 8:00 axis, BI-RADS 5, for biopsy. COMPARISON: 10/30/2023 diagnostic mammography and right breast ultrasound. PROCEDURAL DETAILS: The details of the procedure, as well as the risks, benefits, and alternatives to the procedure were explained to the patient in detail and all of her questions were answered, after which written informed consent was obtained. Site and side were confirmed. Prior to the procedure, sonography revealed on irregular infiltrative appearing hypoechoic mass measuring up to approximately 3.3 cm within the 8:00 axis of the right breast. A time-out was performed, the lesion intended for biopsy was targeted, and the skin of the right breast was then marked, prepped and draped in the usual sterile fashion. Using sonographic guidance, sterile technique, and 1% lidocaine without epinephrine for local anesthesia, multiple core biopsies were obtained through the targeted area with a 14G spring loaded [employer] Edgeera core biopsy device. There was real-time confirmation of appropriate needle passage. Sampling was documented. At the completion of tissue sampling, a single butterfly shaped metallic clip was deposited at the biopsy site. There was no evidence of immediate complication. SPECIMEN: 4 well formed core samples were obtained DIGITAL POST-PROCEDURE MAMMOGRAPHY: Breast density: The tissue contains scattered areas of fibroglandular density. BI-RADS version 5, category B. There are no new mammographic findings demonstrated. The postprocedure 2-view direct digital mammogram reveals satisfactory and accurate positioning of the biopsy clip within the mass. No hematoma present. The patient tolerated the procedure well and, after assuring adequate hemostasis, was discharged in good condition after reviewing postbiopsy breast care instructions. Final pathology results are pending. MM/MM tomosynthesis diagnostic RT IMPRESSION: 1. No immediate complication from ultrasound-guided percutaneous biopsy left breast large o'clock axis irregular mass. 2. Ultrasound was used to localize and guide marker clip placement. 3. The 2-view direct digital postprocedure mammogram reveals satisfactory and accurate positioning of the biopsy clip. 4. Final pathology results are pending. A separate report with final recommendations will be issued once these results are made available.
[2023-11-06] MEDS: Sodium Bicarbonate 8.4% 50 MEQ/50 ML VIAL SUBCUT (11:42)
[2023-11-06] MEDS: Lidocaine HCl 1 % 20 ML VIAL 15 ML SUBCUT (11:43)
== END 2023-11-06 09:09 | disposition home or self-care (01) ==
LOC: HO.MAMMO 09:08
PROVIDERS: PCP Internal Medicine; Visit Provider Surgery
DX: N63.13 Unspecified lump in the right breast, lower outer quadrant (principal)
CPT/HCPCS: 19083; 77061; 77065; 88305; 88342; 88360; 99202; A4648; C1894

== ENCOUNTER → 2023-11-06 10:00 | Outpatient (BNV) | payer OTHER, SELFPAY ==
[2023-09-04 14:31] VITALS: BP 100/66; BP 104/60; BP 132/58; BMI 31.3
== END ==
PROVIDERS: PCP Internal Medicine; Visit Provider Radiology Diagnostic Radiology
DX: C50.911 Malignant neoplasm of unspecified site of right female breast (principal)
CPT/HCPCS: 19083; 77061; 77065

== ENCOUNTER 2023-11-11 10:24 | Outpatient (AMB) | payer OTHER, SELFPAY ==
[2023-09-04 14:31] VITALS: BP 100/66; BP 104/60; BP 132/58; BMI 31.3
--- NOTE | 2023-11-11 10:26 | A.OFFVIS_ITS ---
Vital Signs 11/11/23 10:32 Height 5 ft 1 in Weight 164 lb 0.383 oz BMI 31.0 BP 122/64 Blood Pressure Location Rt brachial Position Sitting Pulse 70 Pulse Source Pulse Oximeter Pulse Oximetry (%) 96 Oxygen Delivery Method Room Air Intake Visit Reasons: f/u discuss colonoscopy Intake Note: Mayela presents in office today for a scheduled FUV to discuss colo s/p CC; Pt reports that she is hesitant to want to do the colo s.p currently due to having a recently discovered mass in the R breast which is currently being biopsied and she is waiting for the results. Pt may require a surgical procedure to treat this condition first. Pt reports however, that she has been doing much better with her bowel movements over the last few weeks. Pt has been having bowel movements most days if not every other day. Billing Assistant Required: No Allergies dulaglutide [From TRULICITY] Allergy (Unknown, Verified 11/11/23 10:31) DIARRHEA AND VOMITTING liraglutide [From VICTOZA] Allergy (Unknown, Verified 11/11/23 10:31) DIARRHEA AND VOMITTING, vomiting and diahrrea HPI HPI f/u discuss colonoscopy: Details: LAST VISIT Constipation GERD (gastroesophageal reflux disease) Plan Continue pantoprazole daily. Discussed with patient avoiding dietary triggers and late night snacking. Staying upright for minimum 3 hours after meals discussed with patient. Continue taking Colace and senna. Patient was encouraged to increase fluid intake and activity to promote better bowel motility. Patient will return in 2 months to discuss going for colonoscopy and upper endoscopy. Patient will need clearance before from her occupational health physiotherapist. Appointment scheduled for December 18. Will send message to cardiology training officer to add clearance to her existing appointment. Patient is agreeable to this plan and verbalizes understanding of instructions. She was given the opportunity to ask questions and all questions answered. ? Thank you for allowing me to participate in her care Medications Refilled docusate sodium 100 mg PO BEDTIME 90 caps 3RF K59.00 sennosides (Natural Senna Laxative) 8.6 mg PO BEDTIME 90 tabs 3RF constipation K59.00 TODAY'S VISIT Patient is here today for follow-up and to discuss going for colonoscopy. Patient had colonoscopy in [address] Ludwig, tubular adenoma found and recommendation was made for patient to return in 5 years. Tried sending patient for colonoscopy couple times. Patient had to undergo cardiac catheterization with drug-eluting stenting. Patient has been having issues with her diabetes and controlling her blood sugars. Recently patient was seen by Dr. Shine who performed biopsy of her right breast. Results are back and unfortunately patient does have carcinoma. Patient is not aware of the results yet as she has not seen Dr. Shine for follow-up. Patient would like to postpone the procedure, however I recommend that she goes for the procedure. Patient would like to hear the news 1st. Patient states that she would like to go with her family on vacation that she paid for. Last time she plan vacation she had to h ave a cardiac procedure and cancel. Patient reports that she is taking Colace and senna and she is moving her bowels better now. Patient denies any melena, hematochezia, unintentional weight loss or ribbon like stools. Patient denies dyspepsia, dysphagia or odynophagia PFSH Medical History CKD (chronic kidney disease) stage 3, GFR 30-59 ml/min Bacterial conjunctivitis of both eyes Well woman exam Left navicular fracture of foot Vitamin B12 deficiency Thyroid nodule History of Clostridium difficile infection Coronary artery disease Hypercholesterolemia Depression Kidney stone Carpal tunnel syndrome Arthritis 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 Vitamin D deficiency Essential hypertension Type 2 diabetes mellitus with hyperglycemia Surgical History History of biopsy Hx of colonoscopy S/P triple vessel bypass Hx of toe surgery Hx of thyroidectomy History of renal stent Hx of section Hx of myomectomy Hx of tonsillectomy Family History Father DM (diabetes mellitus) Hypertension High cholesterol Spina bifida Kidney stone CAD (coronary artery disease) Mother DM (diabetes mellitus) Hypertension High cholesterol CAD (coronary artery disease) Bipolar 1 disorder Maternal Aunt Lung cancer Maternal Grandfather Lung cancer Other Mental health disorder Social History Household Members: Children Household Members Other:: daughter Housing: Apartment Do you presently have visiting nurse or other home services: No Alcohol intake: never Patient Tobacco Use Status: Never used Tobacco e-Cigarette/Vaping Use: Never Used Second Hand Smoke Exposure: No service: No Current occupational status: employed Cognitive needs: No Hearing needs: No Vision needs: Yes Female Reproductive History Menstrual Age of Menarche: 11 Review of Systems Const Denies weight gain and Denies weight loss ENT Reports no additional complaints, Denies dysphagia and Denies odynophagia Card Reports no additional complaints Resp Reports no additional complaints GI Denies abdominal pain, Denies belching, Denies melena, Denies bloating, Denies change in bowel habits, Denies dysphagia, Denies excessive flatus, Denies dyspepsia, Denies heartburn, Denies diarrhea, Denies loose stools, Denies nausea, Denies odynophagia and Denies vomiting Reports no additional complaints Musc Reports no additional complaints Neuro Reports no additional complaints Psych Reports no additional complaints Endo Reports no additional complaints Physical Exam Vital Signs: Last Vital Signs Pulse 70 11/11/23 10:32 BP 122/64 11/11/23 10:32 Pulse Ox 96 11/11/23 10:32 Oxygen Delivery Method Room Air 11/11/23 10:32 BMI result Body Mass Index 31.0 Const General: healthy appearing and no acute distress Nutritional Appearance: obese Orientation/consciousness: patient oriented x3 Resp Effort & Inspection: normal respiratory effort, able to speak in complete sentences, no tracheal deviation and symmetric chest movement Auscultation: clear to auscultation bilaterally Cardio Rate: regular rate GI Inspection: Yes normal to inspection, No distended and Yes obesity Palpation (GI): Soft to palpation, not firm, nontender and No hepatosplenomegaly present Auscultation: normal bowel sounds General: Yes no CVA tenderness Back/Spine/Pelvis Back: no CVA tenderness Skin General skin exam: elasticity normal, turgor normal and dry skin Neuro General: patient oriented x3 Psych Appearance: grossly normal Mental Status: mental status grossly normal Assessment & Plan Assessment & Plan (1) Constipation: Code(s): K59.00 - Constipation, unspecified Category: Medical Qualifiers: Constipation type: chronic idiopathic constipation Qualified Code(s): K59.04 - Chronic idiopathic constipation (2) GERD (gastroesophageal reflux disease): Code(s): K21.9 - Gastro-esophageal reflux disease without esophagitis Category: Medical Qualifiers: Esophagitis presence: esophagitis presence not specified Qualified Code(s): K21.9 - Gastro-esophageal reflux disease without esophagitis (3) Screen for colon cancer: Code(s): Z12.11 - Encounter for screening for malignant neoplasm of colon Plan Continue current management with Colace and senna. Patient does not want to go for colonoscopy yet even though she was encouraged to to go. Breast carcinoma found on biopsy. Patient is seeing Dr. Shine on November 17. He will send her most likely to see oncologist. Patient will call our office if she will change our mind. She will return in 3 months for follow-up, sooner on as needed basis. She is agreeable to this plan and verbalizes understanding of instructions. She was given the opportunity to ask questions and all questions answered. Thank you for allowing me to participate in her care Medications: Refilled docusate sodium 100 mg PO BEDTIME 90 caps 3RF K59.00 - Constipation, unspecified sennosides (Natural Senna Laxative) 8.6 mg PO BEDTIME 90 tabs 3RF constipation K59.00 - Constipation, unspecified Discontinued pantoprazole take one tablet half an hour before breakfast Discontinued Reason: Doctor's Order 40 mg PO DAILY 90 tabs 2RF K21.9 - Gastro-esophageal reflux disease without esophagitis Coding Level of Care Code Est Pt Level 3 (71760) Diagnoses Chronic idiopathic constipation K59.04 Constipation type: chronic idiopathic constipation Gastroesophageal reflux disease, unspecified whether esophagitis present K21.9 Esophagitis presence: esophagitis presence not specified Screen for colon cancer Z12.11 Time Spent (min) 30 Comment 20 minutes spent with patient and additional 10 minutes spent reviewing her records
[2023-11-11 10:32] VITALS: BP 122/64; PULSE 70; O2SAT 96; BMI 31.0
== END 2023-11-11 10:49 | disposition home or self-care (01) ==
PROVIDERS: PCP Internal Medicine; Visit Provider Nurse Practitioner Family
DX: K59.04 Chronic idiopathic constipation (principal); K21.9 Gastro-esophageal reflux disease without esophagitis; Z12.11 Encounter for screening for malignant neoplasm of colon
CPT/HCPCS: 99213

== ENCOUNTER → 2023-11-11 10:24 | Outpatient (BNVA) | payer OTHER, SELFPAY ==
[2023-09-04 14:31] VITALS: BP 100/66; BP 104/60; BP 132/58; BMI 31.3
== END ==
PROVIDERS: PCP Internal Medicine; Visit Provider Nurse Practitioner Family
DX: K59.04 Chronic idiopathic constipation (principal); K21.9 Gastro-esophageal reflux disease without esophagitis
CPT/HCPCS: 99212

== ENCOUNTER 2023-11-18 16:10 | Outpatient (AMB) | payer OTHER, SELFPAY ==
[2023-11-11 10:51] VITALS: BP 100/66; BP 104/60; BP 132/58; BMI 31.3
[2023-11-18 16:26] VITALS: BMI 31.0
--- NOTE | 2023-11-18 16:26 | A.OFFVIS_ITS ---
Vital Signs 11/18/23 16:26 Height 5 ft 1 in Weight 164 lb 0.383 oz BMI 31.0 Intake Visit Reasons: s/p bx 8:00 mass Right breast Intake Note: This patient presents for a follow-up assessment for breast biopsy results. Patient c/o; reports no complaints. Eating Disorder Psychologist Required: Yes Eating Disorder Psychologist Language: Glove Stitcher Services: Eating Disorder Psychologist Offered & Declined Accompanied by: Family/Other Allergies dulaglutide [From TRULICITY] Allergy (Unknown, Verified 11/18/23 16:27) DIARRHEA AND VOMITTING liraglutide [From VICTOZA] Allergy (Unknown, Verified 11/18/23 16:27) DIARRHEA AND VOMITTING, vomiting and diahrrea Medication List - Last Reconciled 11/18/23 by Blas Shine MD amlodipine 5 mg PO DAILY 90 days aspirin 81 mg PO DAILY 90 days blood pressure monitor (Blood Pressure Kit) As directed blood sugar diagnostic (FreeStyle Lite Strips) DIRECTED THREE TIMES A DAY blood-glucose meter,continuous ([employer] G6 Percussion Instrument Tuner) As directed blood-glucose sensor ([employer] G6 Sensor device) As directed every 10 days blood-glucose transmitter (Dexcom G6 Transmitter device) As directed one every 3 months docusate sodium 100 mg PO BEDTIME empagliflozin (Jardiance) 10 mg PO DAILY ezetimibe 10 mg PO DAILY 90 days furosemide 40 mg PO DAILY 90 days insulin aspart U-100 Up to 150 units via pump subcut daily; 30 days insulin syringe-needle U-100 (BD Insulin Syringe Ultra-Fine) As directed levothyroxine 125 mcg PO DAILY metoprolol tartrate 25 mg PO BID 90 days polyethylene glycol 3350 (Miralax) 17 grams PO DAILY pyridoxine (vitamin B6) 100 mg PO DAILY 90 days rosuvastatin 40 mg PO BEDTIME sennosides (Natural Senna Laxative) 8.6 mg PO BEDTIME tirzepatide (Mounjaro) 2.5 mg (0.5 mL) subcut QWEEK HPI HPI s/p bx 8:00 mass Right breast: Details: 58-year-old female referred for a right breast mass. She had a screening mammogram done last month which showed a right breast mass. She was brought in for targeted studies and both the repeat mammogram and ultrasound showed this large, hypoechoic irregular infiltrative lobular mass at the 8 o'clock position of the right breast. This appeared to extend into the pectoralis muscle with mild pectoralis stenting. She had undergone ultrasound biopsy last week and she is here to discuss the results. She has had yearly mammograms which did not reveal any obvious lesions in the past Her menarche was at age of 11. Her 1st was at age of 20. She had 6 pregnancies. She had menopause at age of 54. Denies any family history of breast cancer. She had a three-vessel CABG 2 years ago. She had stents placed before that and had previously been on Plavix.. She had an PR in 2015. [facility] Medical History Invasive ductal carcinoma of breast CKD (chronic kidney disease) stage 3, GFR 30-59 ml/min Bacterial conjunctivitis of both eyes Well woman exam Left navicular fracture of foot Vitamin B12 deficiency Thyroid nodule History of Clostridium difficile infection Coronary artery disease Hypercholesterolemia Depression Kidney stone Carpal tunnel syndrome Arthritis 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 Vitamin D deficiency Essential hypertension Type 2 diabetes mellitus with hyperglycemia Surgical History History of biopsy Hx of colonoscopy S/P triple vessel bypass Hx of toe surgery Hx of thyroidectomy History of renal stent Hx of section Hx of myomectomy Hx of tonsillectomy Family History Father DM (diabetes mellitus) Hypertension High cholesterol Spina bifida Kidney stone CAD (coronary artery disease) Mother DM (diabetes mellitus) Hypertension High cholesterol CAD (coronary artery disease) Bipolar 1 disorder Maternal Aunt Lung cancer Maternal Grandfather Lung cancer Other Mental health disorder Social History Household Members: Children Household Members Other:: daughter Housing: Apartment Do you presently have visiting nurse or other home services: No Alcohol intake: never Patient Tobacco Use Status: Never used Tobacco e-Cigarette/Vaping Use: Never Used Second Hand Smoke Exposure: No service: No Current occupational status: employed Cognitive needs: No Hearing needs: No Vision needs: Yes Female Reproductive History Menstrual Age of Menarche: 11 Review of Systems Const Denies chills and Denies fever(s) Card Denies chest pain, Denies dyspnea and Denies dyspnea on exertion Resp Denies cough, Denies dyspnea and Denies dyspnea on exertion GI Denies hematochezia and Denies change in bowel habits Denies hematuria Musc Denies back pain and Denies limited range of motion Neuro Denies focal weakness and Denies convulsions Psych Denies depression and Denies mood swings Physical Exam Vital Signs: BMI result Body Mass Index 31.0 Const General: comfortable and no acute distress Orientation/consciousness: patient oriented x3 Neck Neck: Yes no lymphadenopathy Chest Other: Vague mass on the right breast, inferior aspect, no axillary lymphadenopathy Resp Auscultation: clear to auscultation bilaterally Cardio Rhythm: regular rhythm GI Palpation (GI): Soft to palpation, nontender and no guarding Neuro General: patient oriented x3 Assessment & Plan Assessment & Plan (1) Invasive ductal carcinoma of breast: Code(s): C50.919 - Malignant neoplasm of unspecified site of unspecified female breast Category: Medical Plan: Unfortunately, ultrasound biopsy of the right breast mesh shows an invasive ductal carcinoma, ER positive, IA HER2 negative. I explained to her options at this time. The mass on ultrasound seems to be about 2.9 x 3.0 x 3.3 cm. I explained the option of breast conservation treatment with lumpectomy but she will need radiation treatment postoperatively. The other option is mastectomy. Both will require sentinel biopsy of the axilla for evaluation of the lymph nodes. I will also send her to the oncologist for evaluation and further treatment indicates she may need neoadjuvant treatment in view of the question of involvement of the pectoralis. It may be good to proceed with an MRI as well for further define the margins of the lesion especially towards the pectoralis. This will also help us decide whether she will benefit from neoadjuvant treatment. I have discussed this case with Dr. Vasquez. (2) Breast cancer, right: Code(s): C50.911 - Malignant neoplasm of unspecified site of right female breast Category: Medical Plan: She will need further workup with MRI to define extent of tumor. Orders: Orders MR breast BI wo/w con 11/20/23 C50.911 - Malignant neoplasm of unspecified site of right female breast, C50.919 - Malignant neoplasm of unspecified site of unspecified female breast Referrals Hematology & Oncology Referral C50.919 - Malignant neoplasm of unspecified site of unspecified female breast Coding Level of Care Code Est Pt Level 4 (28132) Diagnoses Invasive ductal carcinoma of breast C50.919 Breast cancer, right C50.911
== END 2023-11-18 16:35 | disposition home or self-care (01) ==
PROVIDERS: PCP Internal Medicine; Visit Provider Surgery
DX: C50.911 Malignant neoplasm of unspecified site of right female breast (principal)
CPT/HCPCS: 99214

== ENCOUNTER → 2023-11-18 16:10 | Outpatient (BNVA) | payer OTHER, SELFPAY ==
[2023-11-11 10:51] VITALS: BP 100/66; BP 104/60; BP 132/58; BMI 31.3
== END ==
PROVIDERS: PCP Internal Medicine; Visit Provider Surgery
DX: C50.511 Malignant neoplasm of lower-outer quadrant of right female breast (principal); Z17.0 Estrogen receptor positive status [ER+]; Z98.890 Other specified postprocedural states
CPT/HCPCS: 99212

== ENCOUNTER 2023-11-20 13:04 | Outpatient (AMB) | payer OTHER, SELFPAY ==
[2023-11-11 10:51] VITALS: BP 100/66; BP 104/60; BP 132/58; BMI 31.3
--- NOTE | 2023-11-20 14:09 | A.OFFVIS_ITS ---
Intake Intake Visit Reasons: Tandem pump not working Sales Architect Required: No Accompanied by: Self / Same As Patient Allergies dulaglutide [From TRULICITY] Allergy (Unknown, Verified 11/18/23 16:27) DIARRHEA AND VOMITTING liraglutide [From VICTOZA] Allergy (Unknown, Verified 11/18/23 16:27) DIARRHEA AND VOMITTING, vomiting and diahrrea HPI Comprehensive Diabetes Asmnt Most Recent Diabetes Results: No Data to Display FOR[facility]LY [facility], [facility] Medical History Invasive ductal carcinoma of breast CKD (chronic kidney disease) stage 3, GFR 30-59 ml/min Bacterial conjunctivitis of both eyes Well woman exam Left navicular fracture of foot Vitamin B12 deficiency Thyroid nodule History of Clostridium difficile infection Coronary artery disease Hypercholesterolemia Depression Kidney stone Carpal tunnel syndrome Arthritis 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 Vitamin D deficiency Essential hypertension Type 2 diabetes mellitus with hyperglycemia Surgical History History of biopsy Hx of colonoscopy S/P triple vessel bypass Hx of toe surgery Hx of thyroidectomy History of renal stent Hx of section Hx of myomectomy Hx of tonsillectomy Family History Father DM (diabetes mellitus) Hypertension High cholesterol Spina bifida Kidney stone CAD (coronary artery disease) Mother DM (diabetes mellitus) Hypertension High cholesterol CAD (coronary artery disease) Bipolar 1 disorder Maternal Aunt Lung cancer Maternal Grandfather Lung cancer Other Mental health disorder Social History Household Members: Children Household Members Other:: daughter Housing: Apartment Do you presently have visiting nurse or other home services: No Alcohol intake: never Patient Tobacco Use Status: Never used Tobacco e-Cigarette/Vaping Use: Never Used Second Hand Smoke Exposure: No service: No Current occupational status: employed Cognitive needs: No Hearing needs: No Vision needs: Yes Female Reproductive History Menstrual Age of Menarche: 11 Assessment & Plan Assessment & Plan (1) Type 2 diabetes mellitus with diabetic polyneuropathy: Code(s): E11.42 - Type 2 diabetes mellitus with diabetic polyneuropathy Plan: Patient presents for pump training for? T slim with control IQ and Dexcom G6 The following topics were reviewed today: Patient reported having difficulty connecting Dexcom G6 transmitter to insulin pump. Second issue she believes the pump is not properly displaying the amount of insulin that she is putting into the cartridge. Called [employer], IT reported that current pump is out of warranty. Also stated they sent a replacement pump in 04/2022. Patient denies she received this pump. Patient given new Dexcom G6 sensor in transmitter, it appears that connected to pump at today's visit. Patient left visit in warmup - Sensor setting (if applicable) ??? High Alert:? 300 mg/dl ??? Low Alert:? 80 mg/dl Troubleshooting after starting new pod or inserting new insulin set: Occlusion, adhesive tape sensitivity, redness Check BG 2 hours after site change Sent message to [employer] regarding patient's concerns about not receiving replacement insulin pump. Safety information: Importance of a backup plan, for manual injections setup boluscalc jennifer in the event she comes of the insulin pump, proper prescriptions and emergency supplies ketone strips, and rules for testing for ketones Request sent to Dr. Hargrove regarding prescription for Lantus, pen needles and insulin syringes Reviewed with patient importance of changing insulin delivery set/Pod every 72 hours, with site rotation. Patient given the opportunity to ask questions about pump function No changes made to pump settings at this visit. Basal rate(s) (units/hour) : 12 AM? to 12 PM? 1.4 units / hr 12 PM? to 12 AM? 1.350 units / hr Bolus setting Insulin Carbohydrate Ratio (s) 12 AM to 12 PM 1:6.5 12 PM to 12 AM 1:5.5 Correction Factor / Sensitivity Factor 12 AM? to 12 PM? 1:24 12 PM? to 12 AM? 1:22 Active Insulin Time:? 5 hours Target(s): 12 AM to 12 AM? 110 Coding Level of Care Code Est Pt Level 1 (39216) Diagnoses Type 2 diabetes mellitus with diabetic polyneuropathy E11.42
== END 2023-11-20 14:11 | disposition home or self-care (01) ==
PROVIDERS: PCP Internal Medicine; Visit Provider Registered Nurse Diabetes Educator
DX: E11.42 Type 2 diabetes mellitus with diabetic polyneuropathy (principal)

== ENCOUNTER → 2023-11-20 13:04 | Outpatient (BNVA) | payer OTHER, SELFPAY ==
[2023-11-11 10:51] VITALS: BP 100/66; BP 104/60; BP 132/58; BMI 31.3
== END ==
PROVIDERS: PCP Internal Medicine; Visit Provider Registered Nurse Diabetes Educator
DX: Z46.81 Encounter for fitting and adjustment of insulin pump (principal); E11.42 Type 2 diabetes mellitus with diabetic polyneuropathy
CPT/HCPCS: 99211

== ENCOUNTER → 2023-11-22 15:00 | Outpatient (BNV) | payer OTHER, SELFPAY ==
[2023-11-11 10:51] VITALS: BP 100/66; BP 104/60; BP 132/58; BMI 31.3
== END ==
PROVIDERS: PCP Internal Medicine; Referring Provider Surgery; Visit Provider Internal Medicine Medical Oncology
DX: C50.011 Malignant neoplasm of nipple and areola, right female breast (principal)
CPT/HCPCS: 99204; 99213; 99214

== ENCOUNTER 2023-12-04 16:47 | Outpatient (REF) | payer OTHER, SELFPAY ==
[2023-11-11 10:51] VITALS: BP 100/66; BP 104/60; BP 132/58; BMI 31.3
--- NOTE | ~2023-12-04 | MR_ITS ---
EXAMINATION: MR BREAST WITHOUT AND WITH CONTRAST, BILATERAL CLINICAL INFORMATION: Recently diagnosed right breast invasive ductal carcinoma, 8:00. Evaluate extent of disease. COMPARISON: Mammogram and ultrasound 10/30/2023. Biopsy images 11/06/2023 TECHNIQUE: Imaging was performed with a dedicated breast coil. Prior to the administration of contrast, bilateral axial T1 and bilateral axial T2 weighted sequences were obtained. After the uneventful administration of?8 mL of Gadavist, dynamic contrast-enhanced VIBRANT series through the breasts in the axial plane were performed. Subtracted images were performed and reviewed. A delayed sagittal sequence through both breasts was acquired. Additionally, CAD post-processing, including maximum intensity projections, 3-D reconstructions and kinetic analysis, were performed an independent workstation and reviewed by the interpreting radiologist is a portion of this exam. FINDINGS: Unfortunately, no contrast appears to be administered. Review of the subtraction images demonstrates no contrast within the heart, for example. The study is nondiagnostic in terms of contrast. LEFT BREAST: The left breast appears grossly unremarkable on these noncontrast images. RIGHT BREAST: Review of the noncontrast images demonstrate a T1 hypointense, T2 hyperintense mass with associated architectural distortion located in the central region of the right breast, 6:00 axis measuring approximately 4.6 x 3.2 x 3.3 cm (transverse, AP, CC). No definite clip artifact visualized. There is tenting of the underlying pectoralis musculature. T2-weighted signal extends posteriorly to the level of the pectoralis fascia. Ideally, contrast evaluation would be performed to exclude the possibility of involvement of the pectoralis fascia and muscle. There is no suspicious internal mammary chain or axillary adenopathy. There is evidence of previous median sternotomy. MR/MR breast BI wo/w con IMPRESSION: Very limited study secondary to no contrast administered. The [place] [facility] will contact patient to arrange for repeat contrast imaging. ASSESSMENT: LEFT BREAST: BI-RADS 0 - Incomplete. RIGHT BREAST: BI-RADS 0 - Incomplete. RECOMMENDATIONS: Repeat dynamic series without and with IV contrast.
== END 2023-12-04 16:48 | disposition home or self-care (01) ==
LOC: HO.MRI 16:47
PROVIDERS: PCP Internal Medicine; Visit Provider Surgery
DX: C50.919 Malignant neoplasm of unspecified site of unspecified female breast (principal)
CPT/HCPCS: 77049

== ENCOUNTER 2023-12-09 14:15 | Outpatient (AMB) | payer OTHER, SELFPAY ==
[2023-11-11 10:51] VITALS: BP 100/66; BP 104/60; BP 132/58; BMI 31.3
--- NOTE | 2023-12-09 14:41 | MHC.AMDMED ---
Intake Intake Visit Reasons: DM Tandem pump/CONFIRMED Parts Counter Clerk Required: No Accompanied by: Self / Same As Patient Allergies dulaglutide [From TRULICITY] Allergy (Unknown, Verified 12/06/23 15:09) DIARRHEA AND VOMITTING liraglutide [From VICTOZA] Allergy (Unknown, Verified 12/06/23 15:09) DIARRHEA AND VOMITTING, vomiting and diahrrea HPI Comprehensive Diabetes Asmnt Most Recent Diabetes Results: Hemoglobin A1c 8.9 % 06/08/19 Microalb/Creat Ratio 193.8 ug/mg cr (<30) H 05/18/23 Cholesterol 132 mg/dL (<200) 05/18/23 HDL Cholesterol 53 mg/dL (>40) 05/18/23 Triglycerides 71 mg/dL (<150) 05/18/23 Creatinine 1.05 mg/dL (0.5-1.4) 11/22/23 Blood Urea Nitrogen 12 mg/dL (9-16) 11/22/23 Sodium 141 mmol/L (135-145) 11/22/23 Potassium 3.3 mmol/L (3.3-5.1) 11/22/23 Chloride 106 mmol/L (96-108) 11/22/23 Carbon Dioxide 26 mmol/L (22-29) 11/22/23 Calcium 9.7 mg/dL (8.4-10.2) 11/22/23 AST 19 U/L (5-31) 11/22/23 ALT 21 U/L (0-31) 11/22/23 Total Protein 7.4 g/dL (6.5-8.0) 11/22/23 Albumin 4.1 g/dL (3.5-5.0) 11/22/23 [facility] Medical History Invasive ductal carcinoma of breast CKD (chronic kidney disease) stage 3, GFR 30-59 ml/min Bacterial conjunctivitis of both eyes Well woman exam Left navicular fracture of foot Vitamin B12 deficiency Thyroid nodule History of Clostridium difficile infection Coronary artery disease Hypercholesterolemia Depression Kidney stone Carpal tunnel syndrome Arthritis 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 Vitamin D deficiency Essential hypertension Type 2 diabetes mellitus with hyperglycemia Surgical History History of biopsy Hx of colonoscopy S/P triple vessel bypass Hx of toe surgery Hx of thyroidectomy History of renal stent Hx of section Hx of myomectomy Hx of tonsillectomy Family History Father DM (diabetes mellitus) Hypertension High cholesterol Spina bifida Kidney stone CAD (coronary artery disease) Mother DM (diabetes mellitus) Hypertension High cholesterol CAD (coronary artery disease) Bipolar 1 disorder Maternal Aunt Lung cancer Maternal Grandfather Lung cancer Other Mental health disorder Social History Household Members: Children Household Members Other:: daughter Housing: Apartment Do you presently have visiting nurse or other home services: No Alcohol intake: never Patient Tobacco Use Status: Never used Tobacco e-Cigarette/Vaping Use: Never Used Second Hand Smoke Exposure: No service: No Current occupational status: employed Cognitive needs: No Hearing needs: No Vision needs: Yes Female Reproductive History Menstrual Age of Menarche: 11 Assessment & Plan Assessment & Plan (1) Type 2 diabetes mellitus with diabetic polyneuropathy: Code(s): E11.42 - Type 2 diabetes mellitus with diabetic polyneuropathy Plan: Patient presents for pump training for? T slim with control IQ and Dexcom G6 The following topics were reviewed today: Patient was able to restart current insulin pump. She is still waiting on hearing from [employer] regarding their investigation about the missing insulin pump that was sent out in 04/2022 Patient recently had diagnosis of breast cancer, she has not been given a day for when her treatment will start We did discuss how glucose levels may be affected by medications related to chemotherapy Patient also reports that the MRI she had last week needs to be redone - Sensor setting (if applicable) ??? High Alert:? 300 mg/dl ??? Low Alert:? 80 mg/dl Patient's average glucose for the past 2 weeks 193 mg/dL Patient above target 48% Patient at target 52% Patient below target 0% Currently patient is having higher glucose levels after meals. Patient reports she sometimes forgets to bolus when eating. But she is also having Microl boluses after carbs have been enter. Patient is due for A1c, but has upcoming appointment with Endocrine MANAGER SCIENTIFIC Troubleshooting after starting new pod or inserting new insulin set: Occlusion, adhesive tape sensitivity, redness Check BG 2 hours after site change Reviewed with patient importance of changing insulin delivery set/Pod every 72 hours, with site rotation. Patient given the opportunity to ask questions about pump function See Changes below: Basal rate(s) (units/hour) : 12 AM? to 12 PM? 1.4 units / hr 12 PM? to 12 AM? 1.350 units / hr Bolus setting Insulin Carbohydrate Ratio (s) 12 AM to 12 PM 1:6.5 New 12 AM to 12 PM 1:6 12 PM to 12 AM 1:5.5 New 12 PM to 12 AM 1:5 Correction Factor / Sensitivity Factor 12 AM? to 12 PM? 1:24 12 PM? to 12 AM? 1:22 Active Insulin Time:? 5 hours Target(s): 12 AM to 12 AM? 110 Patient Instructions: Follow-up with Endocrine MANAGER SCIENTIFIC on 12/12/2023 Follow-up with Diabetes Education nurse in 1 month If patient has questions or concerns she can contact Diabetes Education nurse or provider Coding Level of Care Code Est Pt Level 1 (81957) Diagnoses Type 2 diabetes mellitus with diabetic polyneuropathy E11.42
== END 2023-12-09 15:01 | disposition home or self-care (01) ==
PROVIDERS: PCP Internal Medicine; Visit Provider Registered Nurse Diabetes Educator
DX: E11.42 Type 2 diabetes mellitus with diabetic polyneuropathy (principal)

== ENCOUNTER → 2023-12-09 14:15 | Outpatient (BNVA) | payer OTHER, SELFPAY ==
[2023-11-11 10:51] VITALS: BP 100/66; BP 104/60; BP 132/58; BMI 31.3
== END ==
PROVIDERS: PCP Internal Medicine; Visit Provider Registered Nurse Diabetes Educator
DX: Z46.81 Encounter for fitting and adjustment of insulin pump (principal); E11.42 Type 2 diabetes mellitus with diabetic polyneuropathy; Z79.01 Long term (current) use of anticoagulants; Z51.81 Encounter for therapeutic drug level monitoring
CPT/HCPCS: 99211

== ENCOUNTER → 2023-12-10 14:02 | Outpatient (REF) | payer OTHER, SELFPAY ==
[2023-11-11 10:51] VITALS: BP 100/66; BP 104/60; BP 132/58; BMI 31.3
--- NOTE | 2023-12-10 14:06 | CA_ITS ---
Transthoracic Echocardiogram Patient (Last, First, Middle): Mayela Brennan T Gender: Female Date of : 1965 Age: 58 Procedure Date: 12/10/2023 Procedure Type: Transthoracic Echocardiogram Location: OP Height: 157.48 cm Weight: 75.75 kg BSA: 1.77 m2 Heart Rate: bpm BP: 143 / 78 mmHg Taper And Floater: DARSHAN Referring MD: Chuckie New MD Symptoms: I25.10 - Atherosclerotic heart disease of [place] coronary artery without... Study Quality: Adequate ECG Rhythm: Sinus Conclusions: - The left ventricular systolic function is mildly decreased. The visually estimated ejection fraction is between 45-50%. - Wall motion abnormalities related to underlying coronary disease. - No obvious valvular pathology seen on this study. Findings Left Ventricle Normal left ventricular cavity size. There is normal left ventricular wall thickness. The left ventricular systolic function is mildly decreased. The visually estimated ejection fraction is between 45-50%. There is evidence of regional wall motion abnormalities. Evidence suggests grade I (mild) diastolic dysfunction. LV peak GLS -16.3%. Wall Motion Rest Echo Findings The apical inferior, mid inferior, apical septum, and mid inferoseptal segments are hypokinetic. The basal inferior segment is akinetic. Right Ventricle Normal right ventricular cavity size. There is moderate to severely decreased right ventricular systolic function. Atria The left atrium is mildly dilated. The right atrium is normal in size. Aortic Valve There is a normal trileaflet aortic valve. There is no aortic valve stenosis. There is no aortic valve regurgitation. Mitral Valve The mitral valve appears normal. There is trace mitral valve regurgitation. There is no mitral valve stenosis. Pulmonic Valve There is trace pulmonic valve regurgitation. Tricuspid Valve There is mild tricuspid valve regurgitation. There is no evidence of pulmonary hypertension. Great Vessels The asc aorta and aortic arch are normal in size. Small plaque is seen in the ascending aorta. Venous The inferior vena cava is normal in size and collapses greater than 50% with inspiration. Pericardium/Pleural There is no evidence of pericardial effusion. Prior Study Comparison No significant change compared to prior study dated: 03/13/2022. Recommendations, Care & Conclusions No obvious valvular pathology seen on this study. Measurements 2D Linear Measurements IVSd: 0.96 0.6-0.9/0.6-1.0 cm LVIDd: 4.61 3.9-5.3/4.2-5.9 cm LVIDd Index: 2.60 2.4-3.2/2.2-3.1 cm/m2 LVIDs: 3.62 2.0-3.6 cm LVPWd: 0.92 0.7-1.1 cm LA Diam: 3.90 2.7-3.8/3.0-4.0 cm LAIDs Index: 2.20 1.5-2.3 cm/m2 LV Mass: 182.67 67-162/88-224 g LV Mass Index: 103.20 43-95/49-115 g/m2 LVOT Diam: 2.20 3.0+(-)1.3 cm 2D Systolic Function EF 4C: 52.80 >55% EF 2C: 49.50 >55% EF BiP: 50.90 >55% Mitral Valve MV Pk E: 0.60 MV PK A: 0.78 MV Decel Time: 309.00 E/A: 0.80 E'Lateral: 12.20 E'Medial: 4.35 E/E' Med: 13.90 E/E' Lat: 5.00 PHT: 91.00 MVA PHT: 2.42 Decel [place]: 1.95 Aortic Valve AoV Pk Javier: 1.27 AoV Mn Javier: 0.97 AoV VTI: 0.26 AoV Pk Grad: 6.00 Aov Mn Grad: 4.00 COLTON Cont.VTI: 2.66 LVOT LVOT Pk Javier: 0.89 LVOT Mn Javier: 0.64 LVOT VTI: 0.19 LVOT Pk Grad: 3.00 LVOT Mn Grad: 2.00 LVOT Diam: 2.20 LVOT Area: 3.80 Diastolic Function MV Pk E: 0.60 MV Pk A: 0.78 E/A: 0.80 E'Medial: 4.35 E/E' Med: 13.90 E' Laterial: 12.20 E/E' Lat: 5.00 Right Ventricle TAPSE (mm): 8.80 TVS' Javier: 6.09 Tricuspid Valve TR Pk Javier: 2.23 TR Pk Grad: 20.00 RA Press: 3.00 RVSP: 23.00 Great Vessels Aorta Sinus of Valsalva: 3.26 2.0-3.[address] [place]: 2.26 1.7-3.4 cm Ao Asc: 3.20 2.1-3.4 cm Ao Arch: 2.80 Updated in Other Vendor System with Status of Final Chuckie New MD electronically signed on 12/11/2023 11:14:59 AM with status of Final
== END ==
LOC: HO.CARD 14:02
PROVIDERS: PCP Internal Medicine; Visit Provider Internal Medicine
DX: I25.10 Atherosclerotic heart disease of native coronary artery without angina pectoris (principal)
CPT/HCPCS: 93306; 93356

== ENCOUNTER → 2023-12-10 14:06 | Outpatient (BNV) | payer OTHER, SELFPAY ==
[2023-11-11 10:51] VITALS: BP 100/66; BP 104/60; BP 132/58; BMI 31.3
== END ==
PROVIDERS: PCP Internal Medicine; Visit Provider Internal Medicine
DX: I36.1 Nonrheumatic tricuspid (valve) insufficiency (principal); I25.10 Atherosclerotic heart disease of native coronary artery without angina pectoris
CPT/HCPCS: 93306; 93356

== ENCOUNTER 2023-12-12 14:03 | Outpatient (AMB) | payer OTHER, SELFPAY ==
[2023-11-11 10:51] VITALS: BP 100/66; BP 104/60; BP 132/58; BMI 31.3
[2023-12-12 14:07] VITALS: BP 102/62; PULSE 67; BMI 30.8
--- NOTE | 2023-12-12 14:07 | MHC.OFFVIS ---
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 Required: No Accompanied by: Self / Same As Patient Allergies dulaglutide [From TRULICITY] Allergy (Unknown, Verified 12/12/23 14:14) DIARRHEA AND VOMITTING liraglutide [From VICTOZA] Allergy (Unknown, Verified 12/12/23 14:14) DIARRHEA AND VOMITTING, vomiting and diahrrea HPI Comments Details: Patient is a 58 yo female with DM type 2 diagnosed over 20 years ago who presents for continued management of diabetes 1) Diabetes - A1C today in the office 11.6% Diabetes medications: Novolog via T-slim X 2 with control IQ and Dexcom pump, metformin er 500 2 pills BID stopped because of GI upset , Jardiance 10 mg QD. Mounjaro 2.5 mg Qwkl not taking because ran out but was tolerating dexcom sensor [ average glucose: [ 254] TIme in range: [50 ] % very high (above 250) [14 ] % high (181-250) [31 ] % in range (70-180] [0 ] % low (69-55) [0 ] % very low (below 54) She is not bolusing for the meals before she gets high Basal rate(s) (units/hour) : 12 AM? to 12 PM? 1.4 units / hr 12 PM? to 12 AM? 1.4 units / hr Bolus setting Insulin Carbohydrate Ratio (s) 12 AM to 12 PM 1:6 12 PM to 12 AM 1:5 Correction Factor / Sensitivity Factor 12 AM? to 12 PM? 1:24 12 PM? to 12 AM? 1:22 Active Insulin Time:? 5 hours Target(s): 12 AM to 12 pm? 120 12 pm 110 Hypoglycemia: none Dexcom 212 average 31% vry high, 22% high, 47 % in range 0 low Hyperglycemia: Denies nocturia, denies polyuria, denies polydypsia. Took Trulicity and Victoza and had GI intolerance in 2014 Exercise: limited Eye Exam: saw optho in October 2022 2) hypothyroidism - She had a total thyroidectomy in 2016. In September 2020 TSH was suppressed therefore her levothyroxine was reduced to 125 mcg daily. She was to do labs in 6 weeks time but this was not done. She did have elevated TSH in early May because had been forgetting LT4 frequently. Now she states that she does take the 7 pills a week, one everyday. Patient has been taking levothyroxine 125 mcg at 5am.. Denies dry skin. Reports fatigue. [facility] Medical History Invasive ductal carcinoma of breast CKD (chronic kidney disease) stage 3, GFR 30-59 ml/min Bacterial conjunctivitis of both eyes Well woman exam Left navicular fracture of foot Vitamin B12 deficiency Thyroid nodule History of Clostridium difficile infection Coronary artery disease Hypercholesterolemia Depression Kidney stone Carpal tunnel syndrome Arthritis 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 Vitamin D deficiency Essential hypertension Type 2 diabetes mellitus with hyperglycemia Surgical History History of biopsy Hx of colonoscopy S/P triple vessel bypass Hx of toe surgery Hx of thyroidectomy History of renal stent Hx of section Hx of myomectomy Hx of tonsillectomy Family History Father DM (diabetes mellitus) Hypertension High cholesterol Spina bifida Kidney stone CAD (coronary artery disease) Mother DM (diabetes mellitus) Hypertension High cholesterol CAD (coronary artery disease) Bipolar 1 disorder Maternal Aunt Lung cancer Maternal Grandfather Lung cancer Other Mental health disorder Social History Household Members: Children Household Members Other:: daughter Housing: Apartment Do you presently have visiting nurse or other home services: No Alcohol intake: never Patient Tobacco Use Status: Never used Tobacco e-Cigarette/Vaping Use: Never Used Second Hand Smoke Exposure: No service: No Current occupational status: employed Cognitive needs: No Hearing needs: No Vision needs: Yes Female Reproductive History Menstrual Age of Menarche: 11 Physical Exam Vital Signs: Last Vital Signs Pulse 67 12/12/23 14:07 BP 102/62 12/12/23 14:07 BMI result Body Mass Index 30.8 Results AMB Hemoglobin A1c AMB Hemoglobin A1c 11.8 % Last Edit by DERICK Perez on 12/12/23 14:30 Results Reviewed Results Reviewed: Laboratory Last Values Glucose (Clinic) 208 mg/dL (60-115) H 12/12/23 14:16 Hgb A1c (Clinic) 11.8 % (4.0-6.0) H 12/12/23 14:19 Assessment & Plan Assessment & Plan (1) Type 2 diabetes mellitus with hyperglycemia: Comment: [place] [facility] [employer] Code(s): E11.65 - Type 2 diabetes mellitus with hyperglycemia Category: Medical Qualifiers: Diabetes mellitus parts counterman insulin use: without custodial use Qualified Code(s): E11.65 - Type 2 diabetes mellitus with hyperglycemia Plan: Type 2 with poor control on insulin pump. Restart Chato. We discussed at length the need to bolus before her meals. She will return to clinic in early December to re-evaluate pump settings. Patient teaching: The patient was counseled to achieve a target A1C of 7% (154 avg). Fasting blood sugars should be 90-130 in the morning and less than 180 two hours after meals. Reviewed the relationship between poor diabetic control and the developement of complications The patient was counseled to always carry a source of sugar and on the rule of 15's: Take 3 glucose tablets and repeat again in 15 minutes if blood sugar is not in normal range. Continue to repeat every 15 minutes until blood sugar is normal. Plan Orders: Orders AMB Hemoglobin A1c 12/12/23 E11.65 - Type 2 diabetes mellitus with hyperglycemia, Z13.9 - Encounter for screening, unspecified Coding Level of Care Code Est Pt Level 4 (10186) Complex EM visit Add On G2211 Diagnoses Type 2 diabetes mellitus with hyperglycemia, without long-term current use of insulin E11.65 Diabetes mellitus parts counterman insulin use: without parts counterman use
[2023-12-12 14:20] LABS: Glucose, Whole Blood 208 mg/dL (60-115)
== END 2023-12-12 14:56 | disposition home or self-care (01) ==
PROVIDERS: PCP Internal Medicine; Visit Provider Nurse Practitioner Adult Health
DX: E11.65 Type 2 diabetes mellitus with hyperglycemia (principal)
CPT/HCPCS: 99214; G2211

== ENCOUNTER → 2023-12-12 14:03 | Outpatient (BNVA) | payer OTHER, SELFPAY ==
[2023-11-11 10:51] VITALS: BP 100/66; BP 104/60; BP 132/58; BMI 31.3
== END ==
PROVIDERS: PCP Internal Medicine; Visit Provider Nurse Practitioner Adult Health
DX: E11.65 Type 2 diabetes mellitus with hyperglycemia (principal); E11.42 Type 2 diabetes mellitus with diabetic polyneuropathy; E89.0 Postprocedural hypothyroidism; N18.30 Chronic kidney disease, stage 3 unspecified; Z79.4 Long term (current) use of insulin; Z96.41 Presence of insulin pump (external) (internal)
CPT/HCPCS: 82947; 83036; 99212

== ENCOUNTER 2023-12-19 14:10 | Outpatient (AMB) | payer OTHER, SELFPAY ==
[2023-11-11 10:51] VITALS: BP 100/66; BP 104/60; BP 132/58; BMI 31.3
--- NOTE | 2023-12-19 14:20 | A.OFFVIS_ITS ---
Vital Signs 12/19/23 14:23 Height 5 ft 2 in Weight 166 lb 3.657 oz BMI 30.4 BP 120/62 Blood Pressure Location Lt brachial Position Sitting Pulse 65 Intake Visit Reasons: 1 YEAR fu/clear for colonoscopy Appeals Reviewer Veteran Required: No Appeals Reviewer Veteran Services: Appeals Reviewer Veteran Offered & Declined Accompanied by: Self / Same As Patient Allergies dulaglutide [From TRULICITY] Allergy (Unknown, Verified 12/12/23 14:14) DIARRHEA AND VOMITTING liraglutide [From VICTOZA] Allergy (Unknown, Verified 12/12/23 14:14) DIARRHEA AND VOMITTING, vomiting and diahrrea Medication List - Last Reconciled 12/19/23 by Chuckie New MD amlodipine 5 mg PO DAILY 90 days aspirin 81 mg PO DAILY 90 days blood pressure monitor (Blood Pressure Kit) As directed blood sugar diagnostic (FreeStyle Lite Strips) DIRECTED THREE TIMES A DAY blood-glucose meter,continuous (DexFieldoo G6 Dormitory Counselor) As directed blood-glucose sensor (QualiLife G6 Sensor device) As directed every 10 days blood-glucose transmitter (Dexcom G6 Transmitter device) As directed one every 3 months docusate sodium 100 mg PO BEDTIME empagliflozin (Jardiance) 10 mg PO DAILY ezetimibe 10 mg PO DAILY 90 days furosemide 40 mg PO DAILY 90 days insulin aspart U-100 Up to 150 units via pump subcut daily; 30 days insulin syringe-needle U-100 (BD Insulin Syringe Ultra-Fine) As directed use 3 times day levothyroxine 125 mcg PO DAILY metoprolol tartrate 25 mg PO BID 90 days pantoprazole 40 mg PO DAILY pen needle, diabetic (Comfort EZ Pen [place]) As directed polyethylene glycol 3350 (Miralax) 17 grams PO DAILY PRN pyridoxine (vitamin B6) 100 mg PO DAILY 90 days rosuvastatin 40 mg PO BEDTIME sennosides (Natural Senna Laxative) 8.6 mg PO BEDTIME tirzepatide (Mounjaro) 2.5 mg (0.5 mL) subcut QWEEK HPI Comments Details: Mayela returns for follow-up regarding coronary artery disease. To recall, she underwent drug-eluting stent to the mid LAD from 2014. In 2021, she underwent stress testing for follow-up of coronary disease and that was quite abnormal leading to cardiac catheterization followed by coronary artery bypass surgery. More recently, she is generally doing well without any cardiac symptoms. However, it appears she got diagnosed with breast cancer and that is bothering her a lot. In this visit, there is mention that she needs colonoscopy but patient states she may not proceed as she is more worried about the breast. 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 Vitamin D deficiency Essential hypertension Type 2 diabetes mellitus with hyperglycemia Surgical History History of biopsy Hx of colonoscopy S/P triple vessel bypass Hx of toe surgery Hx of thyroidectomy History of renal stent Hx of section Hx of myomectomy Hx of tonsillectomy Family History Father DM (diabetes mellitus) Hypertension High cholesterol Spina bifida Kidney stone CAD (coronary artery disease) Mother DM (diabetes mellitus) Hypertension High cholesterol CAD (coronary artery disease) Bipolar 1 disorder Maternal Aunt Lung cancer Maternal Grandfather Lung cancer Other Mental health disorder Social History Household Members: Children Household Members Other:: daughter Housing: Apartment Do you presently have visiting nurse or other home services: No Alcohol intake: never Patient Tobacco Use Status: Never used Tobacco e-Cigarette/Vaping Use: Never Used Second Hand Smoke Exposure: No service: No Current occupational status: employed Cognitive needs: No Hearing needs: No Vision needs: Yes Female Reproductive History Menstrual Age of Menarche: 11 Review of Systems Const Denies chills, Denies fatigue, Denies fever(s), Denies weight gain and Denies weight loss ENT Denies dizziness Card Denies chest pain, Denies leg edema, Denies lightheadedness, Denies pa lpitations, Denies dyspnea on exertion, Denies orthopnea and Denies other Resp Denies cough and Denies dyspnea on exertion GI Denies hematochezia and Denies change in stool character Musc Denies abnormal gait, Denies muscle weakness, Denies numbness, Denies radiating pain into limb and Denies tingling Neuro Denies abnormal gait, Denies dizziness, Denies numbness and Denies tingling Endo Denies fatigue and Denies palpitations Physical Exam Vital Signs: Last Vital Signs Pulse 65 12/19/23 14:23 BP 120/62 12/19/23 14:23 BMI result Body Mass Index 30.4 Const General: comfortable and no acute distress Orientation/consciousness: patient oriented x3 HEENT Other: Unremarkable Head: Yes normal to inspection Neck Neck: Yes normal visual inspection Chest Chest palpation & inspection: normal inspection of the chest Resp Auscultation: clear to auscultation bilaterally Cardio Palpation: normal PMI Heart sounds: S1 normal heart sound present, S2 normal heart sound present, no gallops, no murmurs and no rubs GI Palpation (GI): Soft to palpation Back/Spine/Pelvis Other: unremarkable Skin General skin exam: no rashes or lesions noted Neuro General: patient oriented x3 Extrem General: Yes normal to inspection Psych Mental Status: mental status grossly normal Office Procedures EKG Details: EKG with underlying sinus rhythm at 65/Min; can not exclude old septal infarct; nonspecific ST-T changes. [id number], Complete Assessment & Plan Assessment & Plan (1) Atherosclerotic cardiovascular disease: Code(s): I25.10 - Atherosclerotic heart disease of [place] coronary artery without angina pectoris Category: Medical Plan: Status post CABG and stable. Continue low-dose aspirin. Also on beta-blockers, statins, Zetia. LDL levels are in the 50s and 60s. Triglyceride level 71 mg/dL. (2) Ischemic cardiomyopathy: Code(s): I25.5 - Ischemic cardiomyopathy Category: Medical Plan: In the most recent echocardiogram, LVEF 45-50%. Wall motion abnormalities related to underlying coronary disease. She has got no heart failure symptoms or signs. She was on valsartan but that was stopped after bypass surgery due to low blood pressure. (3) Type 2 diabetes mellitus with hyperglycemia: Comment: Justice Esparza and handy Code(s): E11.65 - Type 2 diabetes mellitus with hyperglycemia Category: Medical Qualifiers: Diabetes mellitus intermediate insulin use: without watermaster use Qualified Code(s): E11.65 - Type 2 diabetes mellitus with hyperglycemia Plan: Hemoglobin A1c is seems quite high at 11.8%. She is on insulin, Jardiance, Mounjaro. (4) Essential hypertension: Code(s): I10 - Essential (primary) hypertension Category: Medical Plan: On amlodipine. Has been on valsartan/hydrochlorothiazide, but it was apparently stopped due to low blood pressure after bypass. (5) Preoperative cardiovascular examination: Code(s): Z01.810 - Encounter for preprocedural cardiovascular examination Category: Medical Plan: There is plan for colonoscopy but she states she may choose not to proceed as she is worried about the breast. Either way, her risk would be intermediate for any surgical procedures including colonoscopy/breast cancer surgery. Coding Level of Care Code Est Pt Level 4 (40736) Diagnoses Atherosclerotic cardiovascular disease I25.10 Ischemic cardiomyopathy I25.5 Type 2 diabetes mellitus with hyperglycemia, without long-term current use of insulin E11.65 Diabetes mellitus watermaster insulin use: without watermaster use Essential hypertension I10 Preoperative cardiovascular examination Z01.810 CPT Codes EKG - CPT: 51035-[id number], Complete ([id number])
[2023-12-19 14:23] VITALS: BP 120/62; PULSE 65; BMI 30.4
== END 2023-12-19 14:55 | disposition home or self-care (01) ==
PROVIDERS: PCP Internal Medicine; Visit Provider Internal Medicine
DX: I25.10 Atherosclerotic heart disease of native coronary artery without angina pectoris (principal); I25.5 Ischemic cardiomyopathy; E11.65 Type 2 diabetes mellitus with hyperglycemia; I10 Essential (primary) hypertension; Z01.810 Encounter for preprocedural cardiovascular examination
CPT/HCPCS: 93010; 99214

== ENCOUNTER → 2023-12-19 14:10 | Outpatient (BNVA) | payer OTHER, SELFPAY ==
[2023-11-11 10:51] VITALS: BP 100/66; BP 104/60; BP 132/58; BMI 31.3
== END ==
PROVIDERS: PCP Internal Medicine; Visit Provider Internal Medicine
DX: Z01.810 Encounter for preprocedural cardiovascular examination (principal); I25.10 Atherosclerotic heart disease of native coronary artery without angina pectoris; I25.5 Ischemic cardiomyopathy; I12.0 Hypertensive chronic kidney disease with stage 5 chronic kidney disease or end stage renal disease; E11.65 Type 2 diabetes mellitus with hyperglycemia
CPT/HCPCS: 93005; 99212

== ENCOUNTER 2023-12-23 13:44 | Outpatient (AMB) | payer OTHER, SELFPAY ==
[2023-11-11 10:51] VITALS: BP 100/66; BP 104/60; BP 132/58; BMI 31.3
--- NOTE | 2023-12-23 13:44 | A.OFFPC_ITS ---
Vital Signs 12/23/23 13:45 Height 5 ft 2 in Weight 164 lb 0.4 oz BMI 30.0 BP 104/62 Blood Pressure Location Lt brachial Position Sitting Pulse 66 Pulse Source Pulse Oximeter Pulse Oximetry (%) 98 Oxygen Delivery Method Room Air Intake Visit Reasons: annual exam Intake Note: Patient is here today for a physical. Superintendent Greens Required: No Allergies dulaglutide [From TRULICITY] Allergy (Unknown, Verified 12/23/23 14:13) DIARRHEA AND VOMITTING liraglutide [From VICTOZA] Allergy (Unknown, Verified 12/23/23 14:13) DIARRHEA AND VOMITTING, vomiting and diahrrea Medication List - Last Reconciled 12/23/23 by Sujata Gunderson PA-C amlodipine 5 mg PO DAILY 90 days aspirin 81 mg PO DAILY 90 days blood pressure monitor (Blood Pressure Kit) As directed blood sugar diagnostic (FreeStyle Lite Strips) DIRECTED THREE TIMES A DAY blood-glucose meter,continuous (Mommy Nearest G6 Mobile Developer) As directed blood-glucose sensor (Mommy Nearest G6 Sensor device) As directed every 10 days blood-glucose transmitter (Dexcom G6 Transmitter device) As directed one every 3 months docusate sodium 100 mg PO BEDTIME empagliflozin (Jardiance) 10 mg PO DAILY ezetimibe 10 mg PO DAILY 90 days furosemide 40 mg PO DAILY 90 days insulin aspart U-100 Up to 150 units via pump subcut daily; 30 days insulin syringe-needle U-100 (BD Insulin Syringe Ultra-Fine) As directed use 3 times day levothyroxine 125 mcg PO DAILY metoprolol tartrate 25 mg PO BID 90 days pantoprazole 40 mg PO DAILY pen needle, diabetic (Comfort EZ Pen [place]) As directed polyethylene glycol 3350 (Miralax) 17 grams PO DAILY PRN pyridoxine (vitamin B6) 100 mg PO DAILY 90 days rosuvastatin 40 mg PO BEDTIME sennosides (Natural Senna Laxative) 8.6 mg PO BEDTIME tirzepatide (Mounjaro) 2.5 mg (0.5 mL) subcut QWEEK Tobacco use date assessed: 12/23/23 Dental Screening Dental Screen Date: 12/23/23 Did you have a dental visit in the last 12 months?: No Did you have a dental problem in the last 6 months where you did not have access to dental care?: No Was dental information given to patient?: Patient has dentist HPI annual exam HPI Details 58-year-old female with past medical his tory of hypertension, breast cancer, diabetes mellitus, hypercholesterolemia, coronary artery disease, GERD, CKD stage 3, ischemic cardiomyopathy last seen by Dr. Rubio 01/2023 coming in for annual visit. In review of the notes, patient had echo done 12/10/23 which showed decreased left ventricular systolic function, ejection fraction 45-50% without wall motion abnormalities or valvular pathology. Patient was seen by endocrinology 11/2023 for management of diabetes and set up of insulin pump. Patient is followed by Hematology-Oncology for infiltrative ductal carcinoma, ER positive, CT HER2 negative of right breast, most recent MRI was limited and requiring contrast with next scan. Patient also follows Gastroenterology and has declined colonoscopy.?She also follows with demand generator manager last seen 09/2023 was found to have FRANK in the setting of hyperglycemia encouraging tight glucose control and avoiding nephrotoxins. She also followed with Urology for kidney stones and ordered CT KUB and follow up in 1-2 months. She was recently seen in the ED 09/19/2023 for acute hyperglycemia in the setting of insulin pump malfu nction given insulin and glucose normalized discharged home. Today she tells us she has been doing generally well. She regularly sees a video game script writer in her last Pap smear was this year and we will continue to follow with yearly Pap smears. She is seeing endocrinology this week for elevated A1c and blood glucose level. She also mentioned she had an MRI last Saturday at [facility] and we will request these results. Continues to decline colonoscopy. Lastly she mentioned she has a rash on her right foot which has been present for a few months. [facility] Medical History Invasive ductal carcinoma of breast CKD (chronic kidney disease) stage 3, GFR 30-59 ml/min Bacterial conjunctivitis of both eyes Well woman exam Left navicular fracture of foot Vitamin B12 deficiency Thyroid nodule History of Clostridium difficile infection Coronary artery disease Hypercholesterolemia Depression Kidney stone Carpal tunnel syndrome Arthritis 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 Vitamin D deficiency Essential hypertension Type 2 diabetes mellitus with hyperglycemia Surgical History History of biopsy Hx of colonoscopy S/P triple vessel bypass Hx of toe surgery Hx of thyroidectomy History of renal stent Hx of section Hx of myomectomy Hx of tonsillectomy Family History Father DM (diabetes mellitus) Hypertension High cholesterol Spina bifida Kidney stone CAD (coronary artery disease) Mother DM (diabetes mellitus) Hypertension High cholesterol CAD (coronary artery disease) Bipolar 1 disorder Maternal Aunt Lung cancer Maternal Grandfather Lung cancer Other Mental health disorder Social History Household Members: Children Household Members Other:: daughter Housing: Apartment Do you presently have visiting nurse or other home services: No Alcohol intake: never Patient Tobacco Use Status: Never used Tobacco e-Cigarette/Vaping Use: Never Used Second Hand Smoke Exposure: No service: No Current occupational status: employed Cognitive needs: No Hearing needs: No Vision needs: Yes Female Reproductive History Menstrual Age of Menarche: 11 Questionnaire PHQ-9 Over the last 2 weeks, how often have you been bothered by any of the following problems? 1. Little interest or pleasure in doing things: not at all 2. Feeling down, depressed, or hopeless: not at all 3. Trouble falling or staying asleep, or sleeping too much: not at all 4. Feeling tired or having little energy: not at all 5. Poor appetite or overeating: not at all 6. Feeling bad about yourself - or that you are a failure or have let yourself or your family down: not at all 7. Trouble concentrating on things, such as reading the newspaper or watching television: not at all 8. Moving or speaking so slowly that other people could have noticed. Or the opposite - being so fidgety or restless that you have been moving around a lot more than usual: not at all 9. Thoughts that you would be better off or of hurting yourself in some way: not at all Total score: 0 Depression Screening Interpretation: Negative Depression Screening Done: Yes 62761 - PHQ-9 Billing: Yes Source: Developed by Drs. Suleiman John, Addie Reeves, Tonny Ramos and colleagues, with an educational dmitriy from [employer]. Thrive Questionnaire Date Thrive assessed: 12/23/23 I am a: Patient What is your living situation today?: I have a steady place to live Within the past 12 months, did the food you bought not last and you didn't have the money to get more?: Never true Within the past 12 months, did you worry whether your food would run out before you got money to buy more?: Never true Do you have trouble paying for medicines?: No Do you have trouble getting transportation to medical appointments?: No Do you have trouble paying your heating and electricity bill?: No Do you have trouble taking care of your child, family member or friend?: No Do you have trouble with day-to-day activities such as bathing, preparing meals, shopping, managing finances, etc.?: No Are you currently unemployed and looking for a job?: No Are you interested in more education?: No Please select the resources that you would like help with: None Currently or been in a relationship where the following occur: No concerns reported THRIVE Score: 0 AUDIT C Alcohol Use Questionnaire (AUDIT-C) 1. How often do you have a drink containing alcohol?: Monthly or less 2. How many drinks containing alcohol do you have on a typical day when you are drinking?: 1 or 2 3. How often do you have six or more drinks on one occasion?: Never Total Score: 1 HERB-7 AMB Questionnaire HERB-7 Date HERB - 7 assessed: 12/23/23 Feeling nervous, anxious, or on edge: 0 = Not at all Not being able to stop or control worryin = Not at all Worrying too much about different things: 0 = Not at all Trouble relaxin = Not at all Being so restless that it is hard to sit still: 0 = Not at all Becoming easily annoyed or irritable: 0 = Not at all Feeling afraid as if something awful might happen: 0 = Not at all Total HERB-7 score (0-4 normal; 5-9 mild; 10-14 moderate; 15-21 severe): 0 Source: Developed by Drs. Slueiman John, Addie Reeves, Tonny Ramos and colleagues, with an educational dmitriy from [employer]. HERB-7 Assessment Billing HERB-7 Assessment Tool: HERB-7 Assessment [id number] Review of Systems Const Denies body aches, Denies fatigue, Denies fever(s), Denies frequent falls, Denies headache(s) and Denies weakness Eyes Reports no additional complaints and Denies change in vision ENT Denies dysphagia, Denies dizziness, Denies facial pain, Denies headache(s), Denies nasal congestion and Denies odynophagia Card Denies chest pain, Denies syncope, Denies irregular heart rhythm, Denies leg edema, Denies lightheadedness and Denies dyspnea Resp Denies cough and Denies dyspnea GI Denies constipation, Denies dysphagia, Denies dyspepsia, Denies diarrhea, Denies nausea, Denies odynophagia and Denies vomiting Denies urinary frequency, Denies dysuria, Denies urinary hesitancy and Denies urinary urgency Musc Denies back pain and Denies myalgias Skin/Breast Reports as per HPI Neuro Denies dizziness, Denies syncope, Denies frequent falls, Denies headache(s) and Denies weakness Psych Reports no additional complaints Endo Denies fatigue Physical exam (Primary Care) Vital Signs: Last Vital Signs Pulse 66 12/23/23 13:45 BP 104/62 12/23/23 13:45 Pulse Ox 98 12/23/23 13:45 Oxygen Delivery Method Room Air 12/23/23 13:45 BMI result Body Mass Index 30.0 Tobacco/Smoking Status: Tobacco use Status Tobacco use date assessed 12/23/23 12/23/23 13:46 Patient Tobacco Use Status Never used Tobacco 12/23/23 13:44 e-Cigarette/Vaping Use Never Used 12/23/23 13:44 PHQ-9: PHQ-9 Score PHQ-9: Total score 0 12/23/23 13:57 Depression Screening Interpretation: Negative Thrive Assessment: Date of Thrive Assessment Date Thrive assessed 12/23/23 12/23/23 13:46 Currently or been in a relationship where the following occur: No concerns reported Const General: cooperative, healthy appearing, comfortable and no acute distress Orientation/consciousness: patient oriented x3 HENMT Head: Yes normocephalic Ears: hearing grossly normal bilaterally, external ears normal, TM's normal bilaterally and EAC's normal General nose exam: Normal external nose present Face and sinus: Yes normal facial exam and Yes sinuses nontender Mouth: Normal oral and palatal mucosa present and tongue normal Throat: Yes posterior oropharynx normal Eyes General: appearance normal, both eyes and all related structures Conjunctivae: conjunctivae normal Pupils: Equal, round and reactive pupils present EOM: EOMs intact bilaterally and No Nystagmus present Neck Neck: Yes normal visual inspection, Yes full ROM and Yes no lymphadenopathy Thyroid: other (Total thyroidectomy) Chest Chest palpation & inspection: normal inspection of the chest Resp Effort & Inspection: normal respiratory effort Auscultation: clear to auscultation bilaterally, no crackles, no rales, no rhonchi, no wheezes and breath sounds present Cardio Rate: regular rate Rhythm: regular rhythm Peripheral pulses: radial pulses present and dorsalis pedis present GI Inspection: Yes normal to inspection and No Abdominal wall edema Palpation (GI): Soft to palpation, not firm and nontender Auscultation: normal bowel sounds Rectal Exam - Female: deferred General: Yes no CVA tenderness Back/Spine/Pelvis Back: no CVA tenderness Skin Other: Erythematous red bumps on the dorsal aspect of the right foot and some between the toes. No open skin or lesions. Neuro General: patient oriented x3 Cranial nerves: Yes Equal, round and reactive pupils present, Yes Midline tongue present, Yes Ability to bilaterally elevate shoulders present and No Nystagmus present Gait exam (Neuro): Normal gait present Extrem General: Yes normal to inspection, Yes full ROM, No no pedal edema and No edema Psych Speech and movement: Normal speech and movement present Affect: normal affect Insight: Good insight present (Psych) Judgement: Good judgement present (Psych) Assessment and Plan Assessment & Plan (1) Type 2 diabetes mellitus with diabetic polyneuropathy: Code(s): E11.42 - Type 2 diabetes mellitus with diabetic polyneuropathy Plan: Decrease the amount of carbohydrates such as pasta, bread, rice, and potatoes and limit the amount of sweets. Although fruits are generally healthy they should be eaten in moderation as they are still high in sugar. Hemoglobin A1c goal of less than 7%. Continue on current medication and continue to monitor blood sugars. Continue to follow up with endocrinology. (2) Invasive ductal carcinoma of breast: Code(s): C50.919 - Malignant neoplasm of unspecified site of unspecified female breast Plan: Patient follows with Hematology Oncology and just had MRI scan done last Saturday at [facility]. We will request these results. Per patient her next appointment is discuss treatment options. (3) Ischemic cardiomyopathy: Code(s): I25.5 - Ischemic cardiomyopathy Plan: Last echocardiogram showed ejection fraction of 45-50%. Continue to follow with Cardiology (4) Tinea pedis: Code(s): B35.3 - Tinea pedis Plan: Rash on the patient's right foot believed to be athlete's foot and has been self treating with powders. We will trial ketoconazole cream topically and monitor for resolution of the rash. Patient was referred to Podiatry for annual exams. (5) GERD (gastroesophageal reflux disease): Code(s): K21.9 - Gastro-esophageal reflux disease without esophagitis Qualifiers: Esophagitis presence: esophagitis presence not specified Qualified Code(s): K21.9 - Gastro-esophageal reflux disease without esophagitis Plan: Avoid the foods that causes that usually spicy foods, tomato products, juices, coffee, soda and foods that your sensitive to. After eating do not lie down, allow 3-4 hours before in lie down. And keep the head of bed above 30 degrees to avoid the acid from going up. Continue on current medication. (6) Hypercholesterolemia: Code(s): E78.00 - Pure hypercholesterolemia, unspecified Plan: Avoid fried foods, chicken skin, eggs, butter margarine, pastries and meat. Be it pork or beef they have a lot of cholesterol LDL goal of less than 70 and triglyceride of less than 150 patient is on Zetia and rosuvastatin 40 mg. (7) Postsurgical hypothyroidism: Code(s): E89.0 - Postprocedural hypothyroidism Plan: Continue with levothyroxine. Last levels were within normal limits. Ordered for updated labs. (8) Essential hypertension: Code(s): I10 - Essential (primary) hypertension Plan: Continue with blood pressure medication. Decrease salt intake and exercise patient on amlodipine 5 mg once a day metoprolol 25 mg b.i.d. (9) Coronary artery disease: Comment: Catheterization stent placement September 2014, CABG 12/2021 Code(s): I25.10 - Atherosclerotic heart disease of [place] coronary artery without angina pectoris Qualifiers: Coronary Disease-Associated Artery/Lesion type: [place] artery [place] vs. transplanted heart: [place] heart Associated angina: without angina Qualified Code(s): I25.10 - Atherosclerotic heart disease of [place] coronary artery without angina pectoris Plan: Control the cholesterol, weight, blood pressure, diabetes. (10) Annual physical exam: Code(s): Z00.00 - Encounter for general adult medical examination without abnormal findings Plan: Strongly encouraged patient to reconsider colonoscopy however she continues to decline. Up-to-date on mammogram and Pap smears and is not yet due for bone density scan. She is up-to-date on her vaccinations at this time. We will follow up in 3-[address] Rubio. Refilled prescriptions. Plan This note was constructed using voice recognition software. While every effort has been made to ensure accuracy and wildlife technician, still areas may have been included sometimes these areas may affect the content or meeting of the given symptoms. Total time spent caring for the patient today was 40 minutes. This includes time spent before the visit reviewing the chart, time spent during the visit, and time spent after the visit and documentation. Orders: Orders Free T4 (Free Thyroxine) Today Z00.00 - Encounter for general adult medical examination without abnormal findings Thyroid Stimulating Hormone Today Z00.00 - Encounter for general adult medical examination without abnormal findings Referrals Podiatry Referral E11.42 - Type 2 diabetes mellitus with diabetic polyneuropathy Medications: New ketoconazole 2% 1 appl topical BID 2 weeks 15 grams 0RF Refilled levothyroxine 125 mcg PO DAILY 30 tabs 11RF E11.65 - Type 2 diabetes mellitus with hyperglycemia insulin aspart U-100 Up to 150 units via pump subcut daily; 30 days 50 mL 6RF E11.65 - Type 2 diabetes mellitus with hyperglycemia furosemide 40 mg PO DAILY 90 days 90 tabs 1RF I25.10 - Atherosclerotic heart disease of [place] coronary artery without angina pectoris amlodipine 5 mg PO DAILY 90 days 90 tabs 1RF I10 - Essential (primary) hypertension metoprolol tartrate 25 mg PO BID 90 days 180 tabs 2RF I10 - Essential (primary) hypertension Coding Level of Care Code Est Pt Prev Care 40-64y(28127) Diagnoses Type 2 diabetes mellitus with diabetic polyneuropathy E11.42 Invasive ductal carcinoma of breast C50.919 Ischemic cardiomyopathy I25.5 Tinea pedis B35.3 Gastroesophageal reflux disease, unspecified whether esophagitis present K21.9 Esophagitis presence: esophagitis presence not specified Hypercholesterolemia E78.00 Postsurgical hypothyroidism E89.0 Essential hypertension I10 Coronary artery disease involving [place] coronary artery of [place] heart without angina pectoris I25.10 Coronary Disease-Associated Artery/Lesion type: [place] artery [place] vs. transplanted heart: [place] heart Associated angina: without angina Annual physical exam Z00.00 Additional Codes HERB-7 Assessment Billing - HERB-7 Assessment Tool: HERB-7 Assessment [id number] ( [id number])
[2023-12-23 13:45] VITALS: BP 104/62; PULSE 66; O2SAT 98
== END 2023-12-23 14:33 | disposition home or self-care (01) ==
PROVIDERS: PCP Internal Medicine
DX: Z00.00 Encounter for general adult medical examination without abnormal findings (principal); E11.42 Type 2 diabetes mellitus with diabetic polyneuropathy; C50.919 Malignant neoplasm of unspecified site of unspecified female breast; I25.5 Ischemic cardiomyopathy; B35.3 Tinea pedis; K21.9 Gastro-esophageal reflux disease without esophagitis; E78.00 Pure hypercholesterolemia, unspecified; E89.0 Postprocedural hypothyroidism; I10 Essential (primary) hypertension; I25.10 Atherosclerotic heart disease of native coronary artery without angina pectoris
CPT/HCPCS: 99396

== ENCOUNTER 2023-12-26 14:11 | Outpatient (AMB) | payer OTHER, SELFPAY ==
[2023-11-11 10:51] VITALS: BP 100/66; BP 104/60; BP 132/58; BMI 31.3
--- NOTE | 2023-12-26 14:23 | A.OFFVIS_ITS ---
Vital Signs 12/26/23 14:24 Height 5 ft 2 in Weight 163 lb 2.273 oz BMI 29.8 BP 118/78 Blood Pressure Location Rt brachial Position Sitting Pulse 77 Pulse Source Pulse Oximeter Intake Visit Reasons: DM/CONFIRMED Intake Note: Patient presents today for a follow-up on Type 2 Diabetes Mellitus: Most recent Eye Exam: 01/2023 Most recent Podiatry Exam: Does not see a Plumbing Inspector Most recent HbA1c: 11.8%, 12/12/2023 Random Glucose- 219 mg/dL, Today Allergies dulaglutide [From TRULICITY] Allergy (Unknown, Verified 12/24/23 15:07) DIARRHEA AND VOMITTING liraglutide [From VICTOZA] Allergy (Unknown, Verified 12/24/23 15:07) DIARRHEA AND VOMITTING, vomiting and diahrrea HPI Comments Details: Patient is a 58 yo female with DM type 2 diagnosed over 20 years ago who presents for continued management of diabetes 1) Diabetes - A1C most recent 11.8% 12/12/23. Previous 8.8% 2022. Diabetes medications: Novolog via T-slim X 2 with control IQ and Dexcom pump, metformin er 500 2 pills BID stopped because of GI upset , Jardiance 10 mg QD. Mounjaro 2.5 mg weekly dexcom sensor [ average glucose: [254 ] TIme in range: [64] % very high (above 250) Twenty-two % high (181-250) 10 % in range (70-180] 0 % low (69-55) 4 % very low (below 54) She is entering 95 carb per day and was encouraged to accurtately count and enter carbohydrates. She was only in conrol IQ mode 13% of the time and was not aware she was not in auto mode. Basal rate(s) (units/hour) : 12 AM? to 12 PM? 1.6 units / hr 12 PM? to 12 AM? 1.6 units / hr Bolus setting Insulin Carbohydrate Ratio (s) 12 AM to 12 PM 1:5.5 12 PM to 12 AM 1:5 Correction Factor / Sensitivity Factor 12 AM? to 12 PM? 1:24 12 PM? to 12 AM? 1:22 Active Insulin Time:? 5 hours Target(s): 12 AM to 12 pm? 120 12 pm 110 Hypoglycemia: none Dexcom 212 average 31% vry high, 22% high, 47 % in range 0 low Hyperglycemia: Denies nocturia, denies polyuria, denies polydypsia. Took Trulicity and Victoza and had GI intolerance in 2014 Exercise: limited Eye Exam: saw optho in October 2022 2) hypothyroidism - She had a total thyroidectomy in 2016. In September 2020 TSH was suppressed therefore her levothyroxine was reduced to 125 mcg daily. She was to do labs in 6 weeks time but this was not done. She did have elevated TSH in early May because had been forgetting LT4 frequently. Now she states that she does take the 7 pills a week, one everyday. Patient has been taking levothyroxine 125 mcg at 5am.. Denies dry skin. Reports fatigue. [facility] Medical History Invasive ductal carcinoma of breast CKD (chronic kidney disease) stage 3, GFR 30-59 ml/min Bacterial conjunctivitis of both eyes Well woman exam Left navicular fracture of foot Vitamin B12 deficiency Thyroid nodule History of Clostridium difficile infection Coronary artery disease Hypercholesterolemia Depression Kidney stone Carpal tunnel syndrome Arthritis 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 Vitamin D deficiency Essential hypertension Type 2 diabetes mellitus with hyperglycemia Surgical History History of biopsy Hx of colonoscopy S/P triple vessel bypass Hx of toe surgery Hx of thyroidectomy History of renal stent Hx of section Hx of myomectomy Hx of tonsillectomy Family History Father DM (diabetes mellitus) Hypertension High cholesterol Spina bifida Kidney stone CAD (coronary artery disease) Mother DM (diabetes mellitus) Hypertension High cholesterol CAD (coronary artery disease) Bipolar 1 disorder Maternal Aunt Lung cancer Maternal Grandfather Lung cancer Other Mental health disorder Social History Household Members: Children Household Members Other:: daughter Housing: Apartment Do you presently have visiting nurse or other home services: No Alcohol intake: never Patient Tobacco Use Status: Never used Tobacco e-Cigarette/Vaping Use: Never Used Second Hand Smoke Exposure: No service: No Current occupational status: employed Cognitive needs: No Hearing needs: No Vision needs: Yes Female Reproductive History Menstrual Age of Menarche: 11 Physical Exam Vital Signs: Last Vital Signs Pulse 77 12/26/23 14:24 BP 118/78 12/26/23 14:24 BMI result Body Mass Index 29.8 Const Other: Absence of Cushingoid features. Absence of acromegalic features. Neck exam reveals nl size thyroid about 15 gms. No thyroid nodules palpable. Heart S1 S2, Reg R/R. No M/R G. Skin exam reveals absence of vitiligo or acanthosis nigricans. Results Reviewed Results Reviewed: Laboratory Last Values Glucose (Clinic) 219 mg/dL (60-115) H 12/26/23 14:28 Laboratory Tests 11/05/22 02/11/23 04/30/23 15:36 16:30 08:25 Plt Count Potassium Creatinine Estim Creat Clear Calc Estimated GFR Hgb A1c (Clinic) 8.1 H 8.9 H 8.8 H Hemoglobin A1c % Calcium AST ALT Albumin 25-OH Vitamin D Total TSH Ur Creatinine mg/dL Ur Creatinine 24 Hour Urine Creatinine Urine Microalbumin Ur Calcium 24 Hr Calcium/Creat 24 Hr 05/18/23 05/18/23 05/28/23 10:43 10:45 06:30 Plt Count Potassium Creatinine Estim Creat Clear Calc Estimated GFR Hgb A1c (Clinic) Hemoglobin A1c % 8.8 H Calcium AST ALT Albumin 25-OH Vitamin D Total TSH 1.78 Ur Creatinine mg/dL 50.94 Ur Creatinine 24 Hour 1.1 Urine Creatinine 1.17 Urine Microalbumin 126.0 Ur Calcium 24 Hr 196 Calcium/Creat 24 Hr 167 11/22/23 12/12/23 10:06 14:19 Plt Count 317 Potassium 3.3 D Creatinine 1.05 Estim Creat Clear Calc 55.2 Estimated GFR 54 Hgb A1c (Clinic) 11.8 H Hemoglobin A1c % Calcium 9.7 AST 19 ALT 21 Albumin 4.1 25-OH Vitamin D Total 48.0 TSH Ur Creatinine mg/dL Ur Creatinine 24 Hour Urine Creatinine Urine Microalbumin Ur Calcium 24 Hr Calcium/Creat 24 Hr Assessment & Plan Assessment & Plan (1) Type 2 diabetes mellitus with hyperglycemia: Code(s): E11.65 - Type 2 diabetes mellitus with hyperglycemia Category: Medical Qualifiers: Diabetes mellitus terminal block assembler insulin use: without mcfp use Qualified Code(s): E11.65 - Type 2 diabetes mellitus with hyperglycemia Plan: 58-year-old type 2 diabetic on an insulin pump. Over the past 2 weeks she had was out of auto mode so her sugars have not been well controlled. Today she was placed back in auto mode and we spent a great deal of time talking about staying in auto mode unless she has a short-term temporary basal. She is scheduled to start chemotherapy in a few weeks her sugars may rise with this she was asked to contact me in the office if her sugars are not in good control and if her sugars rise after chemotherapy so that we can make an adjustment. Patient teaching: Pump basics re manual versus auto mode The patient was counseled to always carry a source of sugar and on the rule of 15's: Take 3 glucose tablets and repeat again in 15 minutes if blood sugar is not in normal range. Continue to repeat every 15 minutes until blood sugar is normal. Symptoms of DKA were reviewed: early: frequent urination, dry mouth, ketones in the urine, severe symptoms: abdominal pain, nausea, vomiting and weakness. It is important to hydrate with sugar free liquids every 30 minutes and bring the sugars down to normal levels. Medications: New acetone (urine) test (Ketone Urine Test strips) As directed if glucose running over 250, nausea or vomiting check urine for ketones. If + seek medical attention 25 ea 1RF Coding Level of Care Code Est Pt Level 4 (58639) Complex EM visit Add On G2211 Diagnoses Type 2 diabetes mellitus with hyperglycemia, without long-term current use of insulin E11.65 Diabetes mellitus mcfp insulin use: without mcfp use Time Spent (min) 35 Comment Time spent reviewing labs/provider notes, sensor/pump reports, face to face, chart doc
[2023-12-26 14:24] VITALS: BP 118/78; PULSE 77; BMI 29.8
[2023-12-26 14:32] LABS: Glucose, Whole Blood 219 mg/dL (60-115)
== END 2023-12-26 14:46 | disposition home or self-care (01) ==
PROVIDERS: PCP Internal Medicine; Visit Provider Nurse Practitioner Adult Health
DX: E11.65 Type 2 diabetes mellitus with hyperglycemia (principal)
CPT/HCPCS: 99214; G2211

== ENCOUNTER 2024-01-09 11:18 | Day surgery (SDC) | payer OTHER, SELFPAY ==
[2023-11-11 10:51] VITALS: BP 100/66; BP 104/60; BP 132/58; BMI 31.3
--- NOTE | ~2024-01-09 | IR_ITS ---
CLINICAL HISTORY: Right breast cancer. The patient presents to interventional radiology for placement of a port for chemotherapy. PROCEDURES: 1. Real-time ultrasound-guided access into the left internal jugular vein after documentation of selected vessel patency, and permanent image storing in the patient records. 2. Placement of a 6.6 Green[place]ic single-lumen power port. CLINICIAN: Bill Aguirre PA-C MEDICATIONS: - Fentanyl 75 mcg, Lidocaine 1% 10 mL SQ -Antibiotics: Ancef 2g -For additional details, please see nursing flowsheet. Complications: None. Estimated blood loss: <5 ml Specimens: None. Contrast: None. Fluoroscopy time: 1.4 min PROCEDURE NOTE: The procedure, risks, benefits, and alternatives were carefully explained to the patient and written informed consent was obtained. The patient was placed supine on the fluoroscopy table. A timeout was performed. The left neck and chest was prepped and draped in usual sterile fashion. Maximum barrier technique was utilized. Local anesthesia was administered to the access site with 1% lidocaine. Under ultrasound guidance, the left internal jugular vein was accessed with a 5 fr micropuncture set. A 0.035 in wire was advanced into the IVC. A peel-away sheath was advanced over the wire and into the SVC, and the wire was removed. Next, subcutaneous lidocaine was administered to the chest. The port pocket was created after the skin incision, utilizing blunt dissection. Using blunt dissection, a subcutaneous tunnel was created that connects from the port pocket to the venotomy site. Through the peel-away sheath, the 6.6 Green[place]ic port catheter was placed. The catheter position was verified with fluoroscopy to be at the superior vena cava/right atrial junction. The port was connected to the catheter and was placed in the pocket. The venotomy site was closed with a 3-0 Vicryl subcutaneous suture. The port incision site was closed with interrupted 3-0 Vicryl subcutaneous sutures and surgical glue. Prior to closing the skin, 1 g of Ancef solution was placed in the pocket. The port was tested, flushed, and packed with heparin per routine protocol. The patient tolerated the procedure well. The patient was stable after the procedure and was transferred to the PACU. The procedure was performed with a dedicated nurse with continuous monitoring of vital signs. A permanent image of the ultrasound the neck and fluoroscopic image of the chest was saved and sent to PACS. FINDINGS: 1. Patent left internal jugular vein 2. Placement of a 6.6 Green[place]ic single lumen power port. 3. Port flushes and aspirates very well with a 10 mL syringe. No pneumothorax. IR/IR cvc insert tunnel w prt/drawing checker IMPRESSION: Placement of a 6.6 Green[place]ic single-lumen power port. PLAN: - The patient will be discharged home when stable by sedation protocol. - Port may be used immediately. This procedure was performed by Bill Aguirre PA-C, and directly supervised by Dr. Mckee Electronically signed by: Jeffrey Mckee MD 01/23/2024 12:31 PM EDT
[2024-01-09 12:23] VITALS: BP 132/70; PULSE 52; RESP 16; TEMP 36.1; O2SAT 98; BMI 30.9
--- NOTE | 2024-01-09 12:31 | MHC.SHP ---
Pre-Procedural Eval Section A - 24 Hr Update-Section A only Date of Service: 01/09/24 Section B - Complete if H&P > 30 days Chief Complaint: MALIGNANT NEOPLASM BREAST Details of Present Illness: 58 y/o female with right breast cancer and poor iv access Relevant Family History (Specify if Yes): No Relevant Social History: None Present Medications: see Short Stay Collaborative assessment Medical History: No relevant PMH History of Previous Operations: Relevant previous surgery/procedure and date(s) Allergies: Allergies Allergy/AdvReac Type Severity Reaction Status Date / Time dulaglutide [From TRULICITY] Allergy Unknown DIARRHEA Verified 12/24/23 15:07 AND VOMITTING liraglutide [From VICTOZA] Allergy Unknown DIARRHEA Verified 12/24/23 15:07 AND VOMITTING, vomiting and diahrrea Review of Systems Sugical H&P ROS: Negative: Constitution, Cardiovascular, Respiratory and Integumentary Exam Surgical H&P Exam: Normal: Heart, Normal: Lungs, Normal: Skin and Normal: Neurological Plan 58 y/o female with right breast cancer. Left port Time Spent With Patient Time: Total time managing care of this patient today ____ minutes.
--- NOTE | 2024-01-09 12:33 | PC.NURSE ---
patient ate breakfast at 0800 consisting of hard boiled eggs, coffee and a bottle of water. TAYO Alicea notified and at bedside discussing procedure with patient. procedure okay to proceed.
[2024-01-09 14:40] VITALS: BP 121/61; PULSE 60; RESP 17; TEMP 36.9; O2SAT 94
[2024-01-09 15:00] VITALS: BP 131/68; PULSE 55; RESP 16; TEMP 36.8; O2SAT 97
== END 2024-01-09 15:20 | disposition home or self-care (01) ==
PROVIDERS: Student in an Organized Health Care Education/Training Program; PCP Internal Medicine; Visit Provider Internal Medicine Medical Oncology
DX: C50.911 Malignant neoplasm of unspecified site of right female breast (principal); E11.22 Type 2 diabetes mellitus with diabetic chronic kidney disease; I12.9 Hypertensive chronic kidney disease with stage 1 through stage 4 chronic kidney disease, or unspecified chronic kidney disease; N18.30 Chronic kidney disease, stage 3 unspecified; E11.65 Type 2 diabetes mellitus with hyperglycemia; E11.42 Type 2 diabetes mellitus with diabetic polyneuropathy; I25.10 Atherosclerotic heart disease of native coronary artery without angina pectoris; Z95.1 Presence of aortocoronary bypass graft; E78.00 Pure hypercholesterolemia, unspecified; E89.0 Postprocedural hypothyroidism; Z96.41 Presence of insulin pump (external) (internal); Z79.4 Long term (current) use of insulin; Z79.84 Long term (current) use of oral hypoglycemic drugs; Z79.899 Other long term (current) drug therapy; Z88.8 Allergy status to other drugs, medicaments and biological substances; Z98.890 Other specified postprocedural states
CPT/HCPCS: 36561; 76937; 82947; 99212; C1769; C1788; J0131; J0690; J1642; J1644; J2310; J3010

== ENCOUNTER → 2024-01-09 13:07 | Outpatient (BNV) | payer OTHER, SELFPAY ==
[2023-11-11 10:51] VITALS: BP 100/66; BP 104/60; BP 132/58; BMI 31.3
== END ==
PROVIDERS: PCP Internal Medicine; Visit Provider Student in an Organized Health Care Education/Training Program
DX: C50.911 Malignant neoplasm of unspecified site of right female breast (principal)
CPT/HCPCS: 36561; 76937

== ENCOUNTER 2024-01-14 15:31 | Outpatient (AMB) | payer OTHER, SELFPAY ==
[2023-11-11 10:51] VITALS: BP 100/66; BP 104/60; BP 132/58; BMI 31.3
--- NOTE | 2024-01-14 15:37 | A.OFFVIS_ITS ---
Intake Intake Visit Reasons: DM/VM FULL Community Support Worker Required: No Accompanied by: Self / Same As Patient Allergies dulaglutide [From TRULICITY] Allergy (Unknown, Verified 12/24/23 15:07) DIARRHEA AND VOMITTING liraglutide [From VICTOZA] Allergy (Unknown, Verified 12/24/23 15:07) DIARRHEA AND VOMITTING, vomiting and diahrrea HPI Comprehensive Diabetes Asmnt Most Recent Diabetes Results: Creatinine 1.49 mg/dL (0.5-1.4) H 01/10/24 Blood Urea Nitrogen 19 mg/dL (9-16) H 01/10/24 Sodium 141 mmol/L (135-145) 01/10/24 Potassium 3.2 mmol/L (3.3-5.1) L 01/10/24 Chloride 103 mmol/L (96-108) 01/10/24 Carbon Dioxide 29 mmol/L (22-29) 01/10/24 Calcium 9.8 mg/dL (8.4-10.2) 01/10/24 AST 28 U/L (5-31) 01/10/24 ALT 20 U/L (0-31) 01/10/24 Total Protein 7.7 g/dL (6.5-8.0) 01/10/24 Albumin 4.4 g/dL (3.5-5.0) 01/10/24 [facility] Medical History (Updated 12/30/23 @ 09:21 by Dany Rubio MD) Pyelonephritis Urine incontinence Low back pain Hearing deficit Preoperative cardiovascular examination Abnormal stress ECG with treadmill Abnormal echocardiogram Abnormal finding on mammography Breast mass, right Breast cancer, right Invasive ductal carcinoma of breast CKD (chronic kidney disease) stage 3, GFR 30-59 ml/min Bacterial conjunctivitis of both eyes Well woman exam Left navicular fracture of foot Vitamin B12 deficiency Thyroid nodule History of Clostridium difficile infection Coronary artery disease Hypercholesterolemia Depression Kidney stone Carpal tunnel syndrome Arthritis 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 Vitamin D deficiency Essential hypertension Type 2 diabetes mellitus with hyperglycemia Surgical History History of biopsy Hx of colonoscopy S/P triple vessel bypass Hx of toe surgery Hx of thyroidectomy History of renal stent Hx of section Hx of myomectomy Hx of tonsillectomy Family History Father DM (diabetes mellitus) Hypertension High cholesterol Spina bifida Kidney stone CAD (coronary artery disease) Mother DM (diabetes mellitus) Hypertension High cholesterol CAD (coronary artery disease) Bipolar 1 disorder Maternal Aunt Lung cancer Maternal Grandfather Lung cancer Other Mental health disorder Social History Household Members: Children Household Members Other:: daughter Housing: Apartment Do you presently have visiting nurse or other home services: No Alcohol intake: never Patient Tobacco Use Status: Never used Tobacco e-Cigarette/Vaping Use: Never Used Second Hand Smoke Exposure: No service: No Current occupational status: employed Cognitive needs: No Hearing needs: No Vision needs: Yes Female Reproductive History Menstrual Age of Menarche: 11 Assessment & Plan Assessment & Plan (1) Type 2 diabetes mellitus with hyperglycemia: Code(s): E11.65 - Type 2 diabetes mellitus with hyperglycemia Qualifiers: Diabetes mellitus usp insulin use: without usp use Qualified Code(s): E11.65 - Type 2 diabetes mellitus with hyperglycemia Plan: Patient presents for pump training for? T luis with control IQ and Dexcom G6 The following topics were reviewed today: Patient has started chemotherapy on 01/13/2024. Discussed with patient that medications from chemotherapy can cause hyperglycemia Glucose levels have been running above target - Sensor setting (if applicable) ??? High Alert:? 300 mg/dl ??? Low Alert:? 80 mg/dl Patient's average glucose for the past 2 weeks 267 mg/dL Patient above target 72% Patient at target 28% Patient below target 0% Patient's A1c on 12/26/2023 11.8% There still has been no resolution in missing insulin pump. Patient reports she does not have the money right now to replace her current insulin pump. Reviewed with patient how to treat low blood sugars with rule of 15s. Instructed patient to contact consumer educator if she has an increase in hypoglycemia, or if she believes she needs additional adjustment because of hyperglycemia She will be following up with ROUTE SALES DRIVER on 01/28/2024 Troubleshooting after starting new pod or inserting new insulin set: Occlusion, adhesive tape sensitivity, redness Check BG 2 hours after site change Reviewed with patient importance of changing insulin delivery set/Pod every 72 hours, with site rotation. Patient given the opportunity to ask questions about pump function See Changes below: Basal rate(s) (units/hour) : 12 AM? to 12 PM? 1.6 units / hr 12 PM? to 12 AM? 1.6 units / hr Bolus setting Insulin Carbohydrate Ratio (s) 12 AM to 12 PM 1:5.5 New 12 AM to 12 PM 1:5 12 PM to 12 AM 1:5.5 New 12 PM to 12 AM 1:4:5 Correction Factor / Sensitivity Factor 12 AM? to 12 PM? 1:24 New 12 AM? to 12 PM? 1:20 12 PM? to 12 AM? 1:22 New 12 AM? to 12 PM? 1:18 Active Insulin Time:? 5 hours Target(s): 12 AM to 12 AM? 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
== END 2024-01-14 16:00 | disposition home or self-care (01) ==
PROVIDERS: PCP Internal Medicine; Visit Provider Registered Nurse Diabetes Educator
DX: E11.65 Type 2 diabetes mellitus with hyperglycemia (principal)

== ENCOUNTER → 2024-01-14 15:31 | Outpatient (BNVA) | payer OTHER, SELFPAY ==
[2023-11-11 10:51] VITALS: BP 100/66; BP 104/60; BP 132/58; BMI 31.3
== END ==
PROVIDERS: PCP Internal Medicine; Visit Provider Registered Nurse Diabetes Educator
DX: Z46.81 Encounter for fitting and adjustment of insulin pump (principal); E11.65 Type 2 diabetes mellitus with hyperglycemia; Z79.4 Long term (current) use of insulin
CPT/HCPCS: 99211

== ENCOUNTER 2024-01-15 16:10 | Outpatient (REF) | payer OTHER, SELFPAY ==
[2023-11-11 10:51] VITALS: BP 100/66; BP 104/60; BP 132/58; BMI 31.3
--- NOTE | ~2024-01-15 | CT_ITS ---
EXAMINATION: CT ABDOMEN AND PELVIS WITHOUT CONTRAST CLINICAL INFORMATION: Calculus of kidney. COMPARISON: 10/20/2022 TECHNIQUE: Multidetector volumetric imaging was performed from the superior aspect of the liver through the pubic symphysis. Sagittal and coronal reformatted images were obtained on the technologist's workstation. This CT examination was performed using dose optimization techniques as appropriate, variously including the following: *Automated exposure control *Adjustment of mA and/or kV according to patient size (this includes techniques or standardized protocols for targeted exams where dose is matched to indication/reason for exam; i.e. extremities or head) *Use of iterative reconstruction technique DLP: 429 mGy-cm FINDINGS: LUNG BASES: The visualized lung bases are unremarkable. LIVER, GALLBLADDER, AND BILIARY TREE: The liver is normal in size, shape, and attenuation. No focal hepatic lesion or biliary ductal dilatation is present. The gallbladder is unremarkable with no evidence of radiopaque gallstones, gallbladder wall thickening, or obvious pericholecystic inflammatory changes. PANCREAS: Unremarkable. SPLEEN: Unremarkable. ADRENAL GLANDS: Unremarkable. KIDNEYS AND URETERS: The kidneys are normal in size, shape, and attenuation. No hydronephrosis or hydroureter. Multiple calcifications are seen bilaterally. On the right there are at least 10 calcifications present. The largest is seen at the mid to lower pole. This measures 0.5 cm and is 8 cm from the posterior axillary line. This measures approximately 790 Hounsfield units. On the left there are at least 10 calculi present with a string of calculi at the upper pole again noted. These measure up to 0.3 cm, approximately 8.5 cm from the posterior axillary line. BLADDER: Unremarkable. GASTROINTESTINAL TRACT: Small hiatal hernia. Normal caliber small bowel. No obstruction. No colonic wall thickening or inflammation. Moderate diffuse colonic stool burden. Normal appendix. ABDOMINAL WALL: No significant hernia is appreciated. LYMPH NODES: Normal. VASCULAR: Normal caliber aorta with mild atherosclerotic calcification. PELVIC VISCERA: Inverted uterus. Calcifications at the fundus may be associated with fibroids. No adnexal mass. OSSEOUS STRUCTURES: No acute or suspicious osseous abnormality. CT/CT kidney stone IMPRESSION: 1. Multiple bilateral nonobstructing renal calculi. No hydronephrosis. 2. Moderate colonic stool burden. Fleischner guidelines were followed. Electronically signed by: Celso Gill MD 01/28/2024 09:28 AM EDT
== END 2024-01-15 16:11 | disposition home or self-care (01) ==
LOC: HO.CT 16:10
PROVIDERS: PCP Internal Medicine; Visit Provider Nurse Practitioner Family
DX: N20.0 Calculus of kidney (principal)
CPT/HCPCS: 74176

== ENCOUNTER 2024-01-28 15:32 | Outpatient (AMB) | payer OTHER, SELFPAY ==
[2023-11-11 10:51] VITALS: BP 100/66; BP 104/60; BP 132/58; BMI 31.3
--- NOTE | 2024-01-28 15:34 | MHC.OFFVIS ---
Vital Signs 01/28/24 15:35 Height 5 ft 2 in Weight 168 lb 3.403 oz BMI 30.8 BP 112/70 Blood Pressure Location Lt brachial Position Sitting Pulse 63 Pulse Source Pulse Oximeter Intake Visit Reasons: DM/CONFIRMED Intake Note: Patient presents today for a follow-up on Type 2 Diabetes Mellitus: Most recent Eye Exam: 01/2023 Most recent Podiatry Exam: Does not see a Meal Temperer Most recent HbA1c: 11.8%, 12/12/2023 Random Glucose- 83 mg/dL, Manager Mental Health Required: No Accompanied by: Self / Same As Patient Allergies dulaglutide [From TRULICITY] Allergy (Unknown, Verified 01/28/24 15:41) DIARRHEA AND VOMITTING liraglutide [From VICTOZA] Allergy (Unknown, Verified 01/28/24 15:41) DIARRHEA AND VOMITTING, vomiting and diahrrea HPI Comments Details: Patient is a 58 yo female with DM type 2 diagnosed over 20 years ago who presents for continued management of diabetes. She was last seen by the prosthodontist/educator on 01/11/2024 and by myself 12/26/23. Insulin pump settings had been changed to give additional insulin for both carbohydrates and for correction factor, she is undergoing chemotherapy for breast cancer. 1) Diabetes - A1C most recent 11.8% 12/12/23. Previous 8.8% 2022. Diabetes medications: Novolog via T-slim X 2 with control IQ and Dexcom pump, metformin er 500 2 pills BID stopped because of GI upset Jardiance 10 mg QD (has been on for two years) Mounjaro 2.5 mg weekly not taking Since first chemo 01/12 Took Trulicity and Victoza and had GI intolerance in 2014 Dexcom average glucose: [176 ] 14 day continuous glucose monitor report reviewed Glucose Managment indicator 7.5 % Days with CGM data [94.6 ] % TIme in ranges: 13 % very high (above 250) 27 % high ?(181-250) 16 % in range ?(70-180] 0 % low (69-55) 0 % ?very low (below 54) Interpretation [CGMS overall 30 points higher than target does have a bump after meals during the daytime ] Basal rate(s) (units/hour) : 12 AM? to 12 PM? 1.6 units / hr 12 PM? to 12 AM? 1.6 units / hr Bolus setting Insulin Carbohydrate Ratio (s) 12 AM to 12 PM 1:5 new 4.5 12 PM to 12 AM 1:4.5 Correction Factor / Sensitivity Factor 12 AM? to 12 PM? 1:20 12 PM? to 12 AM? 1:18 Active Insulin Time:? 5 hours Target(s): 12 AM to 12 AM? 110 Exercise: limited Neuropathy: positive numbness and tingling, occ pain takes care of her own feet Nephropathy: 04/2023 microalbumin elevated 126 Eye Exam: saw optho in Jan 2023 has appt 02/10 not certain if she has retinopathy (form given for opth to complete) 2) hypothyroidism - She had a total thyroidectomy in 2016. In September 2020 TSH was suppressed therefore her levothyroxine was reduced to 125 mcg daily. She was to do labs in 6 weeks time but this was not done. She did have elevated TSH in early May because had been forgetting LT4 frequently. Now she states that she does take the 7 pills a week, one everyday. Patient has been taking levothyroxine 125 mcg at 5am.. Denies dry skin. Reports fatigue. Will come sooner than we wanted to the hip the tongue GI due to PFSH Medical History (Updated 12/30/23 @ 09:21 by Dany Rubio MD) Pyelonephritis Urine incontinence Low back pain Hearing deficit Preoperative cardiovascular examination Abnormal stress ECG with treadmill Abnormal echocardiogram Abnormal finding on mammography Breast mass, right Breast cancer, right Invasive ductal carcinoma of breast CKD (chronic kidney disease) stage 3, GFR 30-59 ml/min Bacterial conjunctivitis of both eyes Well woman exam Left navicular fracture of foot Vitamin B12 deficiency Thyroid nodule History of Clostridium difficile infection Coronary artery disease Hypercholesterolemia Depression Kidney stone Carpal tunnel syndrome Arthritis 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 Vitamin D deficiency Essential hypertension Type 2 diabetes mellitus with hyperglycemia Surgical History History of biopsy Hx of colonoscopy S/P triple vessel bypass Hx of toe surgery Hx of thyroidectomy History of renal stent Hx of section Hx of myomectomy Hx of tonsillectomy Family History Father DM (diabetes mellitus) Hypertension High cholesterol Spina bifida Kidney stone CAD (coronary artery disease) Mother DM (diabetes mellitus) Hypertension High cholesterol CAD (coronary artery disease) Bipolar 1 disorder Maternal Aunt Lung cancer Maternal Grandfather Lung cancer Other Mental health disorder Social History Household Members: Children Household Members Other:: daughter Housing: Apartment Do you presently have visiting nurse or other home services: No Alcohol intake: never Patient Tobacco Use Status: Never used Tobacco e-Cigarette/Vaping Use: Never Used Second Hand Smoke Exposure: No service: No Current occupational status: employed Cognitive needs: No Hearing needs: No Vision needs: Yes Female Reproductive History Menstrual Age of Menarche: 11 Physical Exam Vital Signs: Last Vital Signs Pulse 63 01/28/24 15:35 BP 112/70 01/28/24 15:35 BMI result Body Mass Index 30.8 Const Other: Absence of Cushingoid features. Absence of acromegalic features. Neck exam reveals nl size thyroid about 15 gms. No thyroid nodules palpable. No carotid bruits present. Lungs CTA. Heart S1 S2, Reg R/R. No M/R G. Skin exam reveals absence of vitiligo or acanthosis nigricans. No edema Office Procedures Glucose Monitoring Details Details: See [facility] [address]73 - Glucose monitoring, continuous-physician I&R Procedure code (CPT) selection complete Results Reviewed Results Reviewed: Laboratory Last Values Glucose (Clinic) 83 mg/dL (60-115) 01/28/24 15:46 Assessment & Plan Assessment & Plan (1) Type 2 diabetes mellitus with hyperglycemia: Code(s): E11.65 - Type 2 diabetes mellitus with hyperglycemia Category: Medical Qualifiers: Diabetes mellitus termite control technician insulin use: without detention use Qualified Code(s): E11.65 - Type 2 diabetes mellitus with hyperglycemia Plan: Type 2 diet diabetic with peripheral neuropathy on a tandem insulin pump. Numbers are improving substantially with her last pump change. Average glucose is now 176 compared to previous A1c of 11.8% early November. Insulin to carbohydrate ratio was changed during the daytime to give her more pre meal insulin. Orders: Orders AMB Glucose Monitoring 01/29/24 E11.65 - Type 2 diabetes mellitus with hyperglycemia Medications: New fluconazole administer on day 1 of therapy 150 mg PO DAILY 1 tab 0RF E11.65 - Type 2 diabetes mellitus with hyperglycemia Patient Instructions: The patient was counseled to achieve a target A1C of 7% (154 avg). Fasting blood sugars should be 90-130 in the morning and less than 180 two hours after meals. Reviewed the relationship between poor diabetic control and the developement of complications The patient was counseled to always carry a source of sugar and on the rule of 15's: Take 3 glucose tablets and repeat again in 15 minutes if blood sugar is not in normal range. Continue to repeat every 15 minutes until blood sugar is normal. Troubleshooting after starting new pod or inserting new insulin set: Occlusion, adhesive tape sensitivity, redness Check BG 2 hours after site change Safety information: Importance of a backup plan, for manual injections, proper prescriptions and emergency supplies ketone strips, and rules for testing for ketones Symptoms of DKA were reviewed: early: frequent urination, dry mouth, fatigue, feeling ill, severe symptoms: ketones in the urine, abdominal pain, nausea, vomiting and weakness. It is important to hydrate with sugar free liquids every 30 minutes and bring the sugars down to normal levels. Coding Level of Care Code Est Pt Level 4 (94226) Complex EM visit Add On G2211 Diagnoses Type 2 diabetes mellitus with hyperglycemia, without long-term current use of insulin E11.65 Diabetes mellitus detention insulin use: without termite control technician use CPT Codes Details - CPT: 54996 - Glucose monitoring, continuous-physician I&R ([id number]) Time Spent (min) 35 Comment Reviewing labs/provider notes, glucose sensor/pump reports, face to face, chart doc
[2024-01-28 15:35] VITALS: BP 112/70; PULSE 63; BMI 30.8
[2024-01-28 15:51] LABS: Glucose, Whole Blood 83 mg/dL (60-115)
== END 2024-01-28 16:15 | disposition home or self-care (01) ==
PROVIDERS: PCP Internal Medicine; Visit Provider Nurse Practitioner Adult Health
DX: E11.65 Type 2 diabetes mellitus with hyperglycemia (principal)
CPT/HCPCS: 95251; 99214; G2211

== ENCOUNTER → 2024-01-28 15:32 | Outpatient (BNVA) | payer OTHER, SELFPAY ==
[2023-11-11 10:51] VITALS: BP 100/66; BP 104/60; BP 132/58; BMI 31.3
== END ==
PROVIDERS: PCP Internal Medicine; Visit Provider Nurse Practitioner Adult Health
DX: E11.65 Type 2 diabetes mellitus with hyperglycemia (principal); Z46.81 Encounter for fitting and adjustment of insulin pump; Z79.4 Long term (current) use of insulin
CPT/HCPCS: 82947; 99212

== ENCOUNTER 2024-02-08 10:50 | Outpatient (REF) | payer OTHER, SELFPAY ==
[2023-11-11 10:51] VITALS: BP 100/66; BP 104/60; BP 132/58; BMI 31.3
[2024-02-08 11:34] LABS: Appearance Urine Clear; Color Urine Yellow; Glucose Urine UA >=1000 mg/dL (Negative); Leukocyte Esterase Urine Moderate (2+) (Negative); Nitrite Urine Negative (Negative); Specific Gravity - Urine >= 1.030 (1.005-1.025); UMIC TRIGGER UA YES; Urine Blood Negative (Negative); Urine Ketones Negative (Negative); Urine Protein Negative (Neg-Trace)
[2024-02-08 11:55] LABS: RBC Urine 0-2 /HPF (0-2); Squamous Epithelial Cell Urine 0-2 /HPF (0-2); WBC Urine >50 /HPF (0-5)
[2024-02-08 11:56] LABS: Bacteria Urine None Seen (None Seen); Hyaline Casts Urine 0-2 /LPF (0-2)
[2024-02-08 12:11] LABS: Creatinine Urine 59.49 mg/dL; Total Protein Urine Random 12 mg/dL (<12)
[2024-02-08 12:11] LABS: Parathyroid Hormone Intact 235.1 pg/mL (8.7-77.1)
[2024-02-08 12:12] LABS: Anion Gap 12 (12-20); Blood Urea Nitrogen 18 mg/dL (9-16); Carbon Dioxide 28 mmol/L (22-29); Chloride 103 mmol/L (96-108); Estimated Glomerular Filt Rate 47; Glucose Random 228 mg/dL (60-115); Phosphorus 2.4 mg/dL (2.7-4.5); Potassium 4.2 mmol/L (3.3-5.1); Sodium 139 mmol/L (135-145); Uric Acid 3.2 mg/dL (2.4-5.7)
[2024-02-08 12:25] LABS: Free T4 (Free Thyroxine) 0.76 ng/dL (0.71-1.85)
== END 2024-02-08 10:51 | disposition home or self-care (01) ==
LOC: HO.LAB 10:50
PROVIDERS: PCP Internal Medicine; Visit Provider Internal Medicine Hypertension Specialist
DX: Z00.00 Encounter for general adult medical examination without abnormal findings (principal); N18.30 Chronic kidney disease, stage 3 unspecified; N20.0 Calculus of kidney
CPT/HCPCS: 36415; 80048; 81001; 82570; 83970; 84100; 84156; 84439; 84443; 84550

== ENCOUNTER 2024-02-10 16:03 | Outpatient (AMB) | payer OTHER, SELFPAY ==
[2023-11-11 10:51] VITALS: BP 100/66; BP 104/60; BP 132/58; BMI 31.3
[2024-02-10 16:05] VITALS: BP 114/64; PULSE 79; O2SAT 98; BMI 30.5
--- NOTE | 2024-02-10 16:05 | HO.NEPHOV_ITS ---
Vital Signs 02/10/24 16:05 Height 5 ft 2 in Weight 167 lb BMI 30.5 BP 114/64 Blood Pressure Location Lt brachial Position Sitting Pulse 79 Pulse Source Pulse Oximeter Pulse Oximetry (%) 98 Oxygen Delivery Method Room Air Intake Visit Reasons: CKD/ 3 MO FU/Conf Mathematics Department Chair Required: No Accompanied by: Self / Same As Patient Allergies dulaglutide [From TRULICITY] Allergy (Unknown, Verified 02/14/24 16:23) DIARRHEA AND VOMITTING liraglutide [From VICTOZA] Allergy (Unknown, Verified 02/14/24 16:23) DIARRHEA AND VOMITTING, vomiting and diahrrea Medication List - Last Reconciled 02/10/24 by Ritesh Soto MD acetone (urine) test (Ketone Urine Test strips) As directed if glucose running over 250, nausea or vomiting check urine for ketones. If + seek medical attention amlodipine 5 mg PO DAILY 90 days blood pressure monitor (Blood Pressure Kit) As directed blood sugar diagnostic (FreeStyle Lite Strips) DIRECTED THREE TIMES A DAY blood-glucose meter,continuous (AppTweak.com G6 Spray Drier) As directed blood-glucose sensor (Heliospectracom G6 Sensor device) As directed every 10 days blood-glucose transmitter (Dexcom G6 Transmitter device) As directed one every 3 months dexamethasone 8 mg (2 x 4 mg) PO TID docusate sodium 100 mg PO BEDTIME empagliflozin (Jardiance) 10 mg PO DAILY ezetimibe 10 mg PO DAILY 90 days fluconazole 150 mg PO Q3D fluconazole 150 mg PO DAILY 1 dose furosemide 40 mg PO DAILY 90 days insulin aspart U-100 Up to 150 units via pump subcut daily; 30 days insulin syringe-needle U-100 (BD Insulin Syringe Ultra-Fine) As directed use 3 times day ketoconazole 2% 1 appl topical BID 2 weeks levothyroxine 125 mcg PO DAILY metoprolol tartrate 25 mg PO BID 90 days nitrofurantoin macrocrystal (Macrodantin) 100 mg PO BID ondansetron 8 mg PO Q8H pantoprazole 40 mg PO DAILY pen needle, diabetic (Comfort EZ Pen [place]) As directed polyethylene glycol 3350 (Miralax) 17 grams PO DAILY PRN pyridoxine (vitamin B6) 100 mg PO DAILY 90 days rosuvastatin 40 mg PO BEDTIME sennosides (Natural Senna Laxative) 8.6 mg PO BEDTIME tirzepatide (Mounjaro) 2.5 mg (0.5 mL) subcut QWEEK HPI Comments Details: Middle aged woman with long standing DM and HTN and kidney stones with CKD Here for follow up 09/26/23 Last week , her insulin pump stopped working Blood sugar shot up to 645 She was unwell. Went to ER Creatinine was 1.8 ( new bump) Treated with IVF , Blood sugar was controlled to 260 and discharged home No repeat creatinine levels thus far. Admits to drinking 6- 10 bottles of water - includes anna bigg, pepsi and sprite [facility] Medical History Breast cancer (~09/2023) Pyelonephritis Urine incontinence Low back pain Hearing deficit Preoperative cardiovascular examination Abnormal stress ECG with treadmill Abnormal echocardiogram Abnormal finding on mammography Breast mass, right Breast cancer, right Invasive ductal carcinoma of breast CKD (chronic kidney disease) stage 3, GFR 30-59 ml/min Bacterial conjunctivitis of both eyes Well woman exam Left navicular fracture of foot Vitamin B12 deficiency Thyroid nodule History of Clostridium difficile infection Coronary artery disease Hypercholesterolemia Depression Kidney stone Carpal tunnel syndrome Arthritis 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 Vitamin D deficiency Essential hypertension Type 2 diabetes mellitus with hyperglycemia Surgical History History of biopsy Hx of colonoscopy S/P triple vessel bypass Hx of toe surgery Hx of thyroidectomy History of renal stent Hx of section Hx of myomectomy Hx of tonsillectomy Family History Father DM (diabetes mellitus) Hypertension High cholesterol Spina bifida Kidney stone CAD (coronary artery disease) Mother DM (diabetes mellitus) Hypertension High cholesterol CAD (coronary artery disease) Bipolar 1 disorder Maternal Aunt Lung cancer Maternal Grandfather Lung cancer Other Mental health disorder Social History Household Members: Children Household Members Other:: daughter Housing: Apartment Do you presently have visiting nurse or other home services: No Alcohol intake: never Patient Tobacco Use Status: Never used Tobacco e-Cigarette/Vaping Use: Never Used Second Hand Smoke Exposure: No service: No Current occupational status: employed Cognitive needs: No Hearing needs: No Vision needs: Yes Female Reproductive History Menstrual Age of Menarche: 11 Physical Exam Vital Signs: Last Vital Signs Pulse 79 02/10/24 16:05 BP 114/64 02/10/24 16:05 Pulse Ox 98 02/10/24 16:05 Oxygen Delivery Method Room Air 02/10/24 16:05 BMI result Body Mass Index 30.5 Results Reviewed Nephrology Results: Hgb 12.5 g/dl (12.0-16.0) 01/31/24 WBC 12.8 X10*3/uL (4.8-10.8) H 01/31/24 Plt Count 326 X10*3/uL (160-400) 01/31/24 Sodium 139 mmol/L (135-145) 02/08/24 Potassium 4.2 mmol/L (3.3-5.1) 02/08/24 Chloride 103 mmol/L (96-108) 02/08/24 Carbon Dioxide 28 mmol/L (22-29) 02/08/24 BUN 18 mg/dL (9-16) H 02/08/24 Creatinine 1.17 mg/dL (0.5-1.4) 02/08/24 Calcium 9.0 mg/dL (8.4-10.2) 02/08/24 Phosphorus 2.4 mg/dL (2.7-4.5) L 02/08/24 PTH Intact 235.1 pg/mL (8.7-77.1) H 02/08/24 Urine Protein Negative mg/dL (Neg-Trace) 02/08/24 Urine Creatinine 59.49 mg/dL 02/08/24 Assessment & Plan Assessment & Plan (1) CKD (chronic kidney disease) stage 3, GFR 30-59 ml/min: Code(s): N18.30 - Chronic kidney disease, stage 3 unspecified Category: Medical (2) Renal calculus, bilateral: Code(s): N20.0 - Calculus of kidney Category: Medical Plan Darius in a setting of hyperglycemia CKD - Most likely has diabetic kidney disease Fluctuation in creatinine due to hemodynamics Encouraged low salt diet Avoid nephrotoxins including NSAIDS Maintain A1C < 7% Concur with current medical management including Jardiance Nephrolithiasis 24 hr urine studies reviewed Encouraged to main a urine output of > 2L per 24 hrs Avoid pepsi OK to drink lemonade Coding Level of Care Code Est Pt Level 4 (49899) Diagnoses CKD (chronic kidney disease) stage 3, GFR 30-59 ml/min N18.30 Renal calculus, bilateral N20.0
== END 2024-02-10 16:18 | disposition home or self-care (01) ==
PROVIDERS: PCP Internal Medicine; Visit Provider Internal Medicine Hypertension Specialist
DX: I12.9 Hypertensive chronic kidney disease with stage 1 through stage 4 chronic kidney disease, or unspecified chronic kidney disease (principal); E11.22 Type 2 diabetes mellitus with diabetic chronic kidney disease; N18.30 Chronic kidney disease, stage 3 unspecified; N20.0 Calculus of kidney
CPT/HCPCS: 99214

== ENCOUNTER → 2024-02-10 16:03 | Outpatient (BNVA) | payer OTHER, SELFPAY ==
[2023-11-11 10:51] VITALS: BP 100/66; BP 104/60; BP 132/58; BMI 31.3
== END ==
PROVIDERS: PCP Internal Medicine; Visit Provider Internal Medicine Hypertension Specialist
DX: E11.22 Type 2 diabetes mellitus with diabetic chronic kidney disease (principal); I12.9 Hypertensive chronic kidney disease with stage 1 through stage 4 chronic kidney disease, or unspecified chronic kidney disease; N20.0 Calculus of kidney; N18.30 Chronic kidney disease, stage 3 unspecified; Z79.4 Long term (current) use of insulin
CPT/HCPCS: 99212

== ENCOUNTER 2024-02-14 16:20 | Outpatient (AMB) | payer OTHER, SELFPAY ==
[2023-11-11 10:51] VITALS: BP 100/66; BP 104/60; BP 132/58; BMI 31.3
[2024-02-14 16:22] VITALS: BP 115/56; PULSE 70; O2SAT 95; BMI 30.7
--- NOTE | 2024-02-14 16:22 | MHC.OFFVIS ---
Vital Signs 02/14/24 16:22 Height 5 ft 2 in Weight 167 lb 15.876 oz BMI 30.7 BP 115/56 L Blood Pressure Location Rt brachial Position Sitting Pulse 70 Pulse Source Pulse Oximeter Pulse Oximetry (%) 95 Oxygen Delivery Method Room Air Intake Visit Reasons: 3 month follow up Intake Note: Mayela presents in office today for a scheduled 3 mos FUV. CC; Pt was rx'd senna and colace at their last visit. No lab orders were placed. Pt reports that they have still been having difficulties with BM and abd cramping. Pt has been undergoing chemotherapy for cancer diagnosis. Pt had not been taking the medication consistently due to this matter. However, per oncology and chemo therapy, they have urged her to start her medication again. Since then, the pt has been doing better, but not great. 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 Patient does not want to go for colonoscopy yet even though she was encouraged to to go. Breast carcinoma found on biopsy. Patient is seeing Dr. Shine on November 17. He will send her most likely to see oncologist. Patient will call our office if she will change our mind. She will return in 3 months for follow-up, sooner on as needed basis. She is agreeable to this plan and verbalizes understanding of instructions. She was given the opportunity to ask questions and all questions answered. ? Thank you for allowing me to participate in her care Medications Refilled docusate sodium 100 mg PO BEDTIME 90 caps 3RF K59.00 sennosides (Natural Senna Laxative) 8.6 mg PO BEDTIME 90 tabs 3RF constipation K59.00 Discontinued pantoprazole take one tablet half an hour before breakfast Discontinued Reason: Doctor's Order 40 mg PO DAILY 90 tabs 2RF K21.9 TODAY'S VISIT Patient is here today for follow-up and to discuss going for colonoscopy. Patient is going through a lot right now where she is waiting to proceed with right breast surgery. Currently patient has chemo and will be done end of February. Patient has scheduled right breast ultrasound before deciding what kind of surgery she will have. Patient would like to postpone discussion about this till June. Patient states that she is hoping to have breast surgery in April. Patient was having loose stools in the beginning when she started her chemo, stopped taking senna and Colace, however after her 4th chemo she felt like she was constipated. Patient restarted taking senna in Colace on as needed basis. Patient reports that she is not having any acid reflux and is doing well. Occasional nausea, received script for Zofran from her oncologist. Patient reports that otherwise she is feeling fairly well. [facility]LY [facility], [facility] Medical History Breast cancer (~09/2023) Pyelonephritis Urine incontinence Low back pain Hearing deficit Preoperative cardiovascular examination Abnormal stress ECG with treadmill Abnormal echocardiogram Abnormal finding on mammography Breast mass, right Breast cancer, right Invasive ductal carcinoma of breast CKD (chronic kidney disease) stage 3, GFR 30-59 ml/min Bacterial conjunctivitis of both eyes Well woman exam Left navicular fracture of foot Vitamin B12 deficiency Thyroid nodule History of Clostridium difficile infection Coronary artery disease Hypercholesterolemia Depression Kidney stone Carpal tunnel syndrome Arthritis 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 Vitamin D deficiency Essential hypertension Type 2 diabetes mellitus with hyperglycemia Surgical History History of biopsy Hx of colonoscopy S/P triple vessel bypass Hx of toe surgery Hx of thyroidectomy History of renal stent Hx of section Hx of myomectomy Hx of tonsillectomy Family History Father DM (diabetes mellitus) Hypertension High cholesterol Spina bifida Kidney stone CAD (coronary artery disease) Mother DM (diabetes mellitus) Hypertension High cholesterol CAD (coronary artery disease) Bipolar 1 disorder Maternal Aunt Lung cancer Maternal Grandfather Lung cancer Other Mental health disorder Social History Household Members: Children Household Members Other:: daughter Housing: Apartment Do you presently have visiting nurse or other home services: No Alcohol intake: never Patient Tobacco Use Status: Never used Tobacco e-Cigarette/Vaping Use: Never Used Second Hand Smoke Exposure: No service: No Current occupational status: employed Cognitive needs: No Hearing needs: No Vision needs: Yes Female Reproductive History Menstrual Age of Menarche: 11 Review of Systems Const Denies weight gain and Denies weight loss ENT Reports no additional complaints, Denies dysphagia and Denies odynophagia Card Reports no additional complaints Resp Reports no additional complaints GI Denies abdominal pain, Denies belching, Denies melena, Denies bloating, Denies change in bowel habits, Reports constipation, Denies dysphagia, Denies excessive flatus, Denies dyspepsia, Denies heartburn, Denies diarrhea, Reports loose stools, Reports nausea, Denies odynophagia and Denies vomiting Reports no additional complaints Musc Reports no additional complaints Neuro Reports no additional complaints Psych Reports no additional complaints Endo Reports no additional complaints Physical Exam Vital Signs: Last Vital Signs Pulse 70 02/14/24 16:22 BP 115/56 L 02/14/24 16:22 Pulse Ox 95 02/14/24 16:22 Oxygen Delivery Method Room Air 02/14/24 16:22 BMI result Body Mass Index 30.7 Const General: healthy appearing and no acute distress Nutritional Appearance: obese Orientation/consciousness: patient oriented x3 Resp Effort & Inspection: normal respiratory effort, able to speak in complete sentences, no tracheal deviation and symmetric chest movement Auscultation: clear to auscultation bilaterally Cardio Rate: regular rate GI Inspection: Yes normal to inspection, No distended and Yes obesity Palpation (GI): Soft to palpation, not firm, nontender and No hepatosplenomegaly present Auscultation: normal bowel sounds General: Yes no CVA tenderness Back/Spine/Pelvis Back: no CVA tenderness Skin General skin exam: elasticity normal, turgor normal and dry skin Neuro General: patient oriented x3 Psych Appearance: grossly normal Mental Status: mental status grossly normal Assessment & Plan Assessment & Plan (1) Constipation: Code(s): K59.00 - Constipation, unspecified Category: Medical Qualifiers: Constipation type: chronic idiopathic constipation Qualified Code(s): K59.04 - Chronic idiopathic constipation (2) GERD (gastroesophageal reflux disease): Code(s): K21.9 - Gastro-esophageal reflux disease without esophagitis Category: Medical Qualifiers: Esophagitis presence: esophagitis presence not specified Qualified Code(s): K21.9 - Gastro-esophageal reflux disease without esophagitis (3) Screen for colon cancer: Code(s): Z12.11 - Encounter for screening for malignant neoplasm of colon Plan Last colonoscopy showed melanosis coli we will stop senna. Patient can take fiber daily and will add Dulcolax. Patient can take it 1-2 tablets daily. Increase fluid intake and activity to promote better bowel motility. Patient would like to return in June to discuss going for colonoscopy. At this point patient has a lot on her mind and would like to postpone the procedure. Patient denies any melena, hematochezia, unintentional weight loss or ribbon like stools. She will call our office if she will have any GI concerning symptoms. She is agreeable to this plan and verbalizes understanding of instructions. She was given the opportunity to ask questions and all questions answered. Thank you for allowing me to participate in her care Medications: New methylcellulose (laxative) (Citrucel) take it with full glass of water 500 mg PO DAILY 90 tabs 2RF K59.00 - Constipation, unspecified bisacodyl (Dulcolax (bisacodyl)) 5 mg PO BEDTIME 30 tabs 4RF Discontinued sennosides (Natural Senna Laxative) Discontinued Reason: Doctor's Order 8.6 mg PO BEDTIME 90 tabs 3RF constipation K59.00 - Constipation, unspecified Coding Level of Care Code Tele [facility] Pt Level 3 (15612) Diagnoses Chronic idiopathic constipation K59.04 Constipation type: chronic idiopathic constipation Gastroesophageal reflux disease, unspecified whether esophagitis present K21.9 Esophagitis presence: esophagitis presence not specified Screen for colon cancer Z12.11 Time Spent (min) 30 Comment 20 minutes spent with patient and additional 10 minutes spent reviewing her records
== END 2024-02-14 17:02 | disposition home or self-care (01) ==
PROVIDERS: PCP Internal Medicine; Visit Provider Nurse Practitioner Family
DX: K59.04 Chronic idiopathic constipation (principal); K21.9 Gastro-esophageal reflux disease without esophagitis; Z12.11 Encounter for screening for malignant neoplasm of colon
CPT/HCPCS: 99213

== ENCOUNTER → 2024-02-14 16:20 | Outpatient (BNVA) | payer OTHER, SELFPAY ==
[2023-11-11 10:51] VITALS: BP 100/66; BP 104/60; BP 132/58; BMI 31.3
== END ==
PROVIDERS: PCP Internal Medicine; Visit Provider Nurse Practitioner Family

== ENCOUNTER 2024-02-26 16:05 | Outpatient (AMB) | payer OTHER, SELFPAY ==
[2024-02-14 16:50] VITALS: BP 100/66; BP 104/60; BP 132/58; BMI 31.3
--- NOTE | 2024-02-26 16:05 | A.OFFVIS_ITS ---
Vital Signs 02/26/24 16:09 Height 5 ft 2 in Weight 167 lb 8.821 oz BMI 30.6 BP 122/72 Blood Pressure Location Rt brachial Position Sitting Pulse 67 Pulse Source Pulse Oximeter Intake Visit Reasons: DM/CONFIRMED Intake Note: Patient presents today for a follow-up on Type 2 Diabetes Mellitus: Last Diabetic eye exam was on: DUE Last Podiatry exam was on: Does not see a Territory Sales Manager Medical Most recent HbA1c: 11.8%, 12/12/2023 Random Glucose- 135 mg/dL, Today Wet Inspector Optical Glass Required: No Accompanied by: Self / Same As Patient Allergies dulaglutide [From TRULICITY] Allergy (Unknown, Verified 02/14/24 16:23) DIARRHEA AND VOMITTING liraglutide [From VICTOZA] Allergy (Unknown, Verified 02/14/24 16:23) DIARRHEA AND VOMITTING, vomiting and diahrrea HPI Comments Details: Patient is a 58 yo female with DM type 2 diagnosed over 20 years ago who presents for continued management of diabetes. She was last seen by the family living educator on 01/11/2024 and by myself 12/26/23 with a f/u telehealth visit 4 weeks ago. Insulin pump settings had been changed to give additional insulin for both carbohydrates and for correction factor, she is undergoing chemotherapy for breast cancer. Has had 3 treatments and has 1 more before additional diagnostic imaging to determine furthur RX 1) Diabetes - A1C most recent 11.8% 12/12/23. Previous 8.8% 2022. Previous treatment: Metformin ER stopped due to GI upset, Took Trulicity and Victoza and had GI intolerance in 2014 Diabetes medications: Novolog via T-slim X 2 with control IQ and Dexcom pump, Jardiance 10 mg QD (has been on for two years) Mounjaro 2.5 mg weekly not taking Since first chemo 01/12 she would like to restart after she completes chemo Took Trulicity and Victoza and had GI intolerance in 2014 Dexcom average glucose: [184 ] 14 day continuous glucose monitor report reviewed Days with CGM data 69.5 % TIme in ranges: Nineteen % very high (above 250) 25 % high ?(181-250) 55 % in range ?(70-180] 1 % low (69-55) 0 % ?very low (below 54) Entering 95 carbs per day total of 2.6 entry control I to 59% of the time 35% in sleep mode 41% manual Basal insulin 31.3 units 47% bolus 53% 34.7 Interpretation [ overall trending 40 points higher than target has bump up for meals] Basal rate(s) (units/hour) : 12 AM? to 12 PM? 1.6 units / hr 12 PM? to 12 AM? 1.6 units / hr Bolus setting Insulin Carbohydrate Ratio (s) 12 AM to 12 PM 1:4.5 12 PM to 12 AM 1:4.5 Correction Factor / Sensitivity Factor 12 AM? to 12 PM? 1:20 12 PM? to 12 AM? 1:18 Active Insulin Time:? 5 hours new 4.0 Target(s): 12 AM to 12 AM? 110 Exercise: limited Neuropathy: positive numbness and tingling, occ pain takes care of her own feet Nephropathy: 04/2023 microalbumin elevated 126 Eye Exam: saw optho in Jan 2023 has appt scheduled not certain if she has retinopathy (form given for opth to complete) 2) hypothyroidism - She had a total thyroidectomy in 2016. In September 2020 TSH was suppressed therefore her levothyroxine was reduced to 125 mcg daily. She was to do labs in 6 weeks time but this was not done. She did have elevated TSH in early May because had been forgetting LT4 frequently. Now she states that she does take the 7 pills a week, one everyday. She had missed 3weeks of dosin g when she traveled prior to her last tsh Patient has been taking levothyroxine 125 mcg at 5am for 5 weeks Denies dry skin. Reports mild fatigue. [facility] Medical History Breast cancer (~09/2023) Pyelonephritis Urine incontinence Low back pain Hearing deficit Preoperative cardiovascular examination Abnormal stress ECG with treadmill Abnormal echocardiogram Abnormal finding on mammography Breast mass, right Breast cancer, right Invasive ductal carcinoma of breast CKD (chronic kidney disease) stage 3, GFR 30-59 ml/min Bacterial conjunctivitis of both eyes Well woman exam Left navicular fracture of foot Vitamin B12 deficiency Thyroid nodule History of Clostridium difficile infection Coronary artery disease Hypercholesterolemia Depression Kidney stone Carpal tunnel syndrome Arthritis 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 Vitamin D deficiency Essential hypertension Type 2 diabetes mellitus with hyperglycemia Surgical History History of biopsy Hx of colonoscopy S/P triple vessel bypass Hx of toe surgery Hx of thyroidectomy History of renal stent Hx of section Hx of myomectomy Hx of tonsillectomy Family History Father DM (diabetes mellitus) Hypertension High cholesterol Spina bifida Kidney stone CAD (coronary artery disease) Mother DM (diabetes mellitus) Hypertension High cholesterol CAD (coronary artery disease) Bipolar 1 disorder Maternal Aunt Lung cancer Maternal Grandfather Lung cancer Other Mental health disorder Social History Household Members: Children Household Members Other:: daughter Housing: Apartment Do you presently have visiting nurse or other home services: No Alcohol intake: never Patient Tobacco Use Status: Never used Tobacco e-Cigarette/Vaping Use: Never Used Second Hand Smoke Exposure: No service: No Current occupational status: employed Cognitive needs: No Hearing needs: No Vision needs: Yes Female Reproductive History Menstrual Age of Menarche: 11 Physical Exam Vital Signs: Last Vital Signs Pulse 67 02/26/24 16:09 BP 122/72 02/26/24 16:09 BMI result Body Mass Index 30.6 Const Other: Absence of Cushingoid features. Absence of acromegalic features. Neck exam reveals nl size thyroid about 15 gms. No thyroid nodules palpable. Heart S1 S2, Reg R/R. No M/R G. Skin exam reveals absence of vitiligo or acanthosis nigricans. No edema Office Procedures Glucose Monitoring Details Details: see hpi Procedure code (CPT) selection complete Results Reviewed Results Reviewed: Laboratory Last Values Glucose (Clinic) 135 mg/dL (60-115) H 02/26/24 16:13 Assessment & Plan Assessment & Plan (1) Type 2 diabetes mellitus with hyperglycemia: Code(s): E11.65 - Type 2 diabetes mellitus with hyperglycemia Category: Medical Qualifiers: Diabetes mellitus skilled nursing insulin use: without intermodal owner operator truck driver use Qualified Code(s): E11.65 - Type 2 diabetes mellitus with hyperglycemia Plan: 58-year-old with nephropathy, neuropathy on an insulin pump, Mounjaro and jardiance. Acitve insulin time reduced to 4 hours to improve post prandials numbers. She will check clarity jennifer monthly and contact our office if her average is not in the 150's otherwise I will see her back in 3 months (2) Postsurgical hypothyroidism: Code(s): E89.0 - Postprocedural hypothyroidism Category: Medical Plan: She was counseled on regularly taking medications on an empty stomach and to not miss doses. It has been about 5 weeks since she has been taking this regularly and was advised to have her blood work done to determine if 125 mcg as the appropriate dose for her. Orders: Orders Free T4 (Free Thyroxine) 02/26/24 E11.65 - Type 2 diabetes mellitus with hyperglycemia Thyroid Stimulating Hormone 02/26/24 E11.65 - Type 2 diabetes mellitus with hyperglycemia Hemoglobin A1c 02/26/24 E11.65 - Type 2 diabetes mellitus with hyperglycemia AMB Glucose Monitoring Today E11.65 - Type 2 diabetes mellitus with hyperglycemia Referrals Podiatry Referral E11.65 - Type 2 diabetes mellitus with hyperglycemia Medications: New ezetimibe (Zetia) 10 mg PO DAILY 30 tabs 11RF Refilled acetone (urine) test (Ketone Urine Test strips) As directed if glucose running over 250, nausea or vomiting check urine for ketones. If + seek medical attention 25 ea 1RF Coding Level of Care Code Est Pt Level 4 (84160) Diagnoses Type 2 diabetes mellitus with hyperglycemia, without long-term current use of insulin E11.65 Diabetes mellitus intermodal owner operator truck driver insulin use: without skilled nursing use Postsurgical hypothyroidism E89.0 Time Spent (min) 30 Comment Reviewing labs/provider notes, glucose sensor/pump reports, face to face, chart doc
[2024-02-26 16:09] VITALS: BP 122/72; PULSE 67; BMI 30.6
[2024-02-26 16:17] LABS: Glucose, Whole Blood 135 mg/dL (60-115)
== END 2024-02-26 16:39 | disposition home or self-care (01) ==
PROVIDERS: PCP Internal Medicine; Visit Provider Nurse Practitioner Adult Health
DX: E11.65 Type 2 diabetes mellitus with hyperglycemia (principal); E89.0 Postprocedural hypothyroidism
CPT/HCPCS: 99214

== ENCOUNTER → 2024-02-26 16:05 | Outpatient (BNVA) | payer OTHER, SELFPAY ==
[2024-02-14 16:50] VITALS: BP 100/66; BP 104/60; BP 132/58; BMI 31.3
== END ==
PROVIDERS: PCP Internal Medicine; Visit Provider Nurse Practitioner Adult Health
DX: E11.65 Type 2 diabetes mellitus with hyperglycemia (principal); E11.42 Type 2 diabetes mellitus with diabetic polyneuropathy; E11.22 Type 2 diabetes mellitus with diabetic chronic kidney disease; I12.9 Hypertensive chronic kidney disease with stage 1 through stage 4 chronic kidney disease, or unspecified chronic kidney disease; N18.30 Chronic kidney disease, stage 3 unspecified; E89.0 Postprocedural hypothyroidism; Z79.4 Long term (current) use of insulin; Z96.41 Presence of insulin pump (external) (internal)
CPT/HCPCS: 82947; 99212

== ENCOUNTER 2024-03-04 11:50 | Outpatient (AMB) | payer OTHER, SELFPAY ==
[2024-02-14 16:50] VITALS: BP 100/66; BP 104/60; BP 132/58; BMI 31.3
--- NOTE | 2024-03-04 11:50 | A.OFFVIS_ITS ---
Intake Visit Reasons: follow up/CT(set) Intake Note: Patient presents today for tele visit follow up on: kidney stone and ct scan results Imaging Completed: 01/15/24 Urology Medication: Vitamin B6 Blood Thinner: aspirin Excavator Backhoe Operator Required: No Excavator Backhoe Operator Services: Excavator Backhoe Operator Present Excavator Backhoe Operator Name: [facility] Accompanied by: Self / Same As Patient Allergies dulaglutide [From TRULICITY] Allergy (Unknown, Verified 03/04/24 12:00) DIARRHEA AND VOMITTING liraglutide [From VICTOZA] Allergy (Unknown, Verified 03/04/24 12:00) DIARRHEA AND VOMITTING, vomiting and diahrrea Medication List - Last Reconciled 03/04/24 by THUY Sumner- acetone (urine) test (Ketone Urine Test strips) As directed if glucose running over 250, nausea or vomiting check urine for ketones. If + seek medical attention amlodipine 5 mg PO DAILY 90 days bisacodyl (Dulcolax (bisacodyl)) 5 mg PO BEDTIME blood pressure monitor (Blood Pressure Kit) As directed blood sugar diagnostic (FreeStyle Lite Strips) DIRECTED THREE TIMES A DAY blood-glucose meter,continuous (Dexcom G6 Nuclear Power Reactor Operator) As directed blood-glucose sensor (Dexcom G6 Sensor device) As directed every 10 days blood-glucose transmitter (Dexcom G6 Transmitter device) As directed one every 3 months dexamethasone 8 mg (2 x 4 mg) PO TID docusate sodium 100 mg PO BEDTIME empagliflozin (Jardiance) 10 mg PO DAILY ezetimibe (Zetia) 10 mg PO DAILY fluconazole 150 mg PO Q3D furosemide 40 mg PO DAILY 90 days insulin aspart U-100 Up to 150 units via pump subcut daily; 30 days insulin syringe-needle U-100 (BD Insulin Syringe Ultra-Fine) As directed use 3 times day ketoconazole 2% 1 appl topical BID 2 weeks levothyroxine 125 mcg PO DAILY methylcellulose (laxative) (Citrucel) 500 mg PO DAILY metoprolol tartrate 25 mg PO BID 90 days ondansetron 8 mg PO Q8H pen needle, diabetic (Comfort EZ Pen [place]) As directed polyethylene glycol 3350 (Miralax) 17 grams PO DAILY PRN pyridoxine (vitamin B6) 100 mg PO DAILY 90 days rosuvastatin 40 mg PO BEDTIME tirzepatide (Mounjaro) 2.5 mg (0.5 mL) subcut QWEEK HPI Comments Details: Mayela is a pleasant 58 year old female patient of Dr. Rubio. She has a past medical history of arthritis, carpal tunnel syndrome, coronary artery disease, depression, hypertension, hypercholesteremia, type 2 diabetes with diabetic polyneuropathy, vitamin B12 deficiency, and vitamin-D deficiency. She is being followed up on today via telehealth for her nephrolithiasis. In discussion with the patient today she reports since her last office visit here approximately 6 months ago she has since been diagnosed with breast cancer and is undergoing chemo and radiation at this time. She becomes tearful. Recent CT KUB results reviewed with the patient today. Bilateral kidneys are normal in size, shape, and attenuation. No hydronephrosis or hydroureter seen bilaterally. Multiple bilateral renal calculi largest on the right side measuring a proximally 0.5 cm. On the left the largest is measuring 0.3 cm. The bladder is unremarkable. She does report noting intermittent episodes of bilateral flank pain right side greater than left. She reports taking OTC Tylenol and feels this is helpful she otherwise denies any bothersome urinary issues. She denies nocturia, hematuria, dysuria, foul smelling urine, changes to urinary stream, fever, and or chills. Discussed at length stone burden. We discussed further treatment options to include ureteroscopy versus surveillance monitoring. At this time will continue with surveillance monitoring. When asked she reports to be drinking plenty of water daily. She reports compliance with vitamin B6 daily and attempting to add 1 oz of lemon juice to water daily. She otherwise offers no other issues or concerns at this time. [facility] Medical History Breast cancer (~09/2023) Pyelonephritis Urine incontinence Low back pain Hearing deficit Preoperative cardiovascular examination Abnormal stress ECG with treadmill Abnormal echocardiogram Abnormal finding on mammography Breast mass, right Breast cancer, right Invasive ductal carcinoma of breast CKD (chronic kidney disease) stage 3, GFR 30-59 ml/min Bacterial conjunctivitis of both eyes Well woman exam Left navicular fracture of foot Vitamin B12 deficiency Thyroid nodule History of Clostridium difficile infection Coronary artery disease Hypercholesterolemia Depression Kidney stone Carpal tunnel syndrome Arthritis 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 Vitamin D deficiency Essential hypertension Type 2 diabetes mellitus with hyperglycemia Surgical History History of biopsy Hx of colonoscopy S/P triple vessel bypass Hx of toe surgery Hx of thyroidectomy History of renal stent Hx of section Hx of myomectomy Hx of tonsillectomy Family History Father DM (diabetes mellitus) Hypertension High cholesterol Spina bifida Kidney stone CAD (coronary artery disease) Mother DM (diabetes mellitus) Hypertension High cholesterol CAD (coronary artery disease) Bipolar 1 disorder Maternal Aunt Lung cancer Maternal Grandfather Lung cancer Other Mental health disorder Social History Household Members: Children Household Members Other:: daughter Housing: Apartment Do you presently have visiting nurse or other home services: No Alcohol intake: never Patient Tobacco Use Status: Never used Tobacco e-Cigarette/Vaping Use: Never Used Second Hand Smoke Exposure: No service: No Current occupational status: employed Cognitive needs: No Hearing needs: No Vision needs: Yes Female Reproductive History Menstrual Age of Menarche: 11 Review of Systems Const Reports as per HPI Eyes Reports no additional complaints ENT Reports no additional complaints Card Reports as per HPI Resp Reports no additional complaints GI Reports no additional complaints Reports as per HPI Musc Reports no additional complaints Skin/Breast Reports as per HPI Neuro Reports no additional complaints Psych Reports no additional complaints Endo Details: Patient reports taking medications for Daibetes and reports sugars to be controlled Reports as per HPI Aller/Immun Reports no additional complaints Physical Exam Const General: cooperative, healthy appearing, comfortable, no acute distress, well developed, alert, awake and Physically active Orientation/consciousness: patient oriented x3 Resp Effort & Inspection: normal respiratory effort and able to speak in complete sentences Neuro General: patient oriented x3 Psych Appearance: grossly normal Mental Status: mental status grossly normal Speech and movement: Clear speech present Affect: normal affect Attitude: cooperative Thought process: Normal thought process present Thought content: Normal thought content present Insight: Fair insight present (Psych) Judgement: Fair judgement present (Psych) Telehealth Telehealth Telehealth Platform: [employer] Location of provider rendering services: practice address Location of patient: address on file Patient Identification confirmed using: Name, : Yes Telehealth method: video Patient verbally consented to treatment: Yes Patient verbally consented to billing insurance company: Yes Patient informed of any privacy concerns related to visit: Yes Minutes spent on Phone/Video with Pt.: 20 Results Reviewed Results Reviewed: Date of Service: 01/15/24 EXAMINATION: CT ABDOMEN AND PELVIS WITHOUT CONTRAST FINDINGS: LUNG BASES: The visualized lung bases are unremarkable. LIVER, GALLBLADDER, AND BILIARY TREE: The liver is normal in size, shape, and attenuation. No focal hepatic lesion or biliary ductal dilatation is present. The gallbladder is unremarkable with no evidence of radiopaque gallstones, gallbladder wall thickening, or obvious pericholecystic inflammatory changes. PANCREAS: Unremarkable. SPLEEN: Unremarkable. ADRENAL GLANDS: Unremarkable. KIDNEYS AND URETERS: The kidneys are normal in size, shape, and attenuation. No hydronephrosis or hydroureter. Multiple calcifications are seen bilaterally. On the right there are at least 10 calcifications present. The largest is seen at the mid to lower pole. This measures 0.5 cm and is 8 cm from the posterior axillary line. This measures approximately 790 Hounsfield units. On the left there are at least 10 calculi present with a string of calculi at the upper pole again noted. These measure up to 0.3 cm, approximately 8.5 cm from the posterior axillary line. BLADDER: Unremarkable. GASTROINTESTINAL TRACT: Small hiatal hernia. Normal caliber small bowel. No obstruction. No colonic wall thickening or inflammation. Moderate diffuse colonic stool burden. Normal appendix. ABDOMINAL WALL: No significant hernia is appreciated. LYMPH NODES: Normal. VASCULAR: Normal caliber aorta with mild atherosclerotic calcification. PELVIC VISCERA: Inverted uterus. Calcifications at the fundus may be associated with fibroids. No adnexal mass. OSSEOUS STRUCTURES: No acute or suspicious osseous abnormality. IMPRESSION: 1. Multiple bilateral nonobstructing renal calculi. No hydronephrosis. 2. Moderate colonic stool burden. Assessment & Plan Assessment & Plan (1) Renal calculus, bilateral: Code(s): N20.0 - Calculus of kidney Category: Medical Plan Recent CT KUB results reviewed with the patient today; as noted above. We discussed at length ureteroscopy versus surveillance monitoring; risks and benefits of these interventions were discussed. Continue with vitamin B6 as discussed and prescribed. Continue adding 1 oz of lemon juice to water daily. Discussed, educated, and stressed the importance of adequate hydration relation to nephrolithiasis as well as overall health and well-being. She otherwise denies any bothersome urinary issues. She reports be happy with current voiding parameters. Will obtain KUB in May. Follow-up in May with imaging to be completed prior; or sooner with any issues, concerns, and or questions. Orders: Orders XR KUB 3 Months N20.0 - Calculus of kidney Patient Instructions: The patient had an opportunity to ask questions regarding the treatment plan. All questions were answered. Physical exam, labs, and imaging were discussed and reviewed in detail. As well as risks, benefits, and discussion of treatment choices. No major barriers to understanding were identified. The patient expressed understanding and agreement with the above treatment plan. The patient was made aware they should contact our office by phone for worsening of their current condition, the appearance of new symptoms, or with any questions or concerns. Compliance is encouraged with any medications and follow up testing that is ordered. It is a privilege to be allowed the opportunity to participate in? your urological care.? Again, if you have any questions or concerns If you have any questions or concerns please do not hesitate to contact me. The office is [phone]. This note is constructed using voice recognition software. While every effort has been made to ensure accuracy school guard errors may have been included. Yours sincerely, GAURAV Sumner Coding Level of Care Code Tele Est Pt Level 3 (13067) Complex EM visit Add On G2211 Diagnoses Renal calculus, bilateral N20.0 Time Spent (min) 20
== END 2024-03-04 16:28 | disposition home or self-care (01) ==
LOC: HO.HUSH 11:50
PROVIDERS: PCP Internal Medicine; Visit Provider Nurse Practitioner Family
DX: N20.0 Calculus of kidney (principal)
CPT/HCPCS: 99213; G2211

== ENCOUNTER → 2024-03-04 11:50 | Outpatient (BNVA) | payer OTHER, SELFPAY ==
[2024-02-14 16:50] VITALS: BP 100/66; BP 104/60; BP 132/58; BMI 31.3
== END ==
PROVIDERS: PCP Internal Medicine; Visit Provider Nurse Practitioner Family

== ENCOUNTER → 2024-03-19 09:01 | Outpatient (REF) | payer OTHER, SELFPAY ==
[2024-02-14 16:50] VITALS: BP 100/66; BP 104/60; BP 132/58; BMI 31.3
--- NOTE | 2024-03-19 09:14 | CA_ITS ---
Transthoracic Echocardiogram Patient (Last, First, Middle): Mayela Brennan T Gender: Female Date of : 1965 Age: 58 Procedure Date: 03/19/2024 Procedure Type: Transthoracic Echocardiogram Location: OP Height: 157.48 cm Weight: 76.66 kg BSA: 1.78 m2 Heart Rate: bpm BP: 108 / 64 mmHg Survey Field Technician: DARSHAN Referring MD: Julieth Vasquez MD Symptoms: Check EF on chemotherapy. Study Quality: Adequate ECG Rhythm: Sinus Conclusions: - The left ventricular systolic function is mildly decreased. The visually estimated ejection fraction is between 45-50%. Findings Left Ventricle Normal left ventricular cavity size. The left ventricular systolic function is mildly decreased. The visually estimated ejection fraction is between 45 50%. There is evidence of regional wall motion abnormalities. LV peak GLS 15.9%. Wall Motion Rest Echo Findings The basal inferior, mid inferior, and apical septum segments are akinetic. Venous The inferior vena cava is normal in size and collapses greater than 50% with inspiration. Prior Study Comparison No significant change compared to prior study dated: 12/10/2023. Measurements 2D Linear Measurements IVSd: 0.82 0.6-0.9/0.6-1.0 cm LVIDd: 4.48 3.9-5.3/4.2-5.9 cm LVIDd Index: 2.52 2.4-3.2/2.2-3.1 cm/m2 LVIDs: 3.38 2.0-3.6 cm LVPWd: 1.07 0.7-1.1 cm LV Mass: 175.56 67-162/88-224 g LV Mass Index: 98.63 43-95/49-115 g/m2 LVOT Diam: 2.20 3.0+(-)1.3 cm 2D Systolic Function EF 4C: 51.10 >55% EF 2C: 50.10 >55% EF BiP: 51.00 >55% LVOT LVOT Pk Javier: 0.78 LVOT Mn Javier: 0.54 LVOT VTI: 0.14 LVOT Pk Grad: 2.00 LVOT Mn Grad: 1.00 LVOT Diam: 2.20 LVOT Area: 3.80 Tricuspid Valve RA Press: 3.00 Updated in Other Vendor System with Status of Final Chuckie New MD electronically signed on 03/20/2024 5:04:29 PM with status of Final
== END ==
LOC: HO.CARD 09:01
PROVIDERS: PCP Internal Medicine; Visit Provider Internal Medicine Medical Oncology
DX: C50.919 Malignant neoplasm of unspecified site of unspecified female breast (principal)
CPT/HCPCS: 93308; 93356

== ENCOUNTER → 2024-03-19 09:14 | Outpatient (BNV) | payer OTHER, SELFPAY ==
[2024-02-14 16:50] VITALS: BP 100/66; BP 104/60; BP 132/58; BMI 31.3
== END ==
PROVIDERS: PCP Internal Medicine; Visit Provider Internal Medicine
DX: Z51.81 Encounter for therapeutic drug level monitoring (principal); R93.1 Abnormal findings on diagnostic imaging of heart and coronary circulation
CPT/HCPCS: 93308; 93356

== ENCOUNTER 2024-03-24 15:57 | Outpatient (AMB) | payer OTHER, SELFPAY ==
[2024-02-14 16:50] VITALS: BP 100/66; BP 104/60; BP 132/58; BMI 31.3
[2024-03-24 16:05] VITALS: BP 110/60; PULSE 87; O2SAT 98; BMI 30.4
--- NOTE | 2024-03-24 16:05 | MHC.PC.OV ---
Vital Signs 03/24/24 16:05 Height 5 ft 2 in Weight 166 lb BMI 30.4 BP 110/60 Blood Pressure Location Rt brachial Position Sitting Pulse 87 Pulse Source Pulse Oximeter Pulse Oximetry (%) 98 Oxygen Delivery Method Room Air Intake Visit Reasons: follow up Allergies dulaglutide [From TRULICITY] Allergy (Unknown, Verified 03/24/24 16:10) DIARRHEA AND VOMITTING liraglutide [From VICTOZA] Allergy (Unknown, Verified 03/24/24 16:10) DIARRHEA AND VOMITTING, vomiting and diahrrea Medication List - Last Reconciled 03/24/24 by Sujata Gunderson PA-C acetone (urine) test (Ketone Urine Test strips) As directed if glucose running over 250, nausea or vomiting check urine for ketones. If + seek medical attention amlodipine 5 mg PO DAILY 90 days bisacodyl (Dulcolax (bisacodyl)) 5 mg PO BEDTIME blood pressure monitor (Blood Pressure Kit) As directed blood sugar diagnostic (FreeStyle Lite Strips) DIRECTED THREE TIMES A DAY blood-glucose meter,continuous (Sproutkin G6 Nurse Consultant) As directed blood-glucose sensor (Sproutkin G6 Sensor device) As directed every 10 days blood-glucose transmitter (Dexcom G6 Transmitter device) As directed one every 3 months dexamethasone 8 mg (2 x 4 mg) PO TID docusate sodium 100 mg PO BEDTIME empagliflozin (Jardiance) 10 mg PO DAILY ezetimibe (Zetia) 10 mg PO DAILY fluconazole 150 mg PO Q3D furosemide 40 mg PO DAILY 90 days insulin aspart U-100 Up to 150 units via pump subcut daily; 30 days insulin syringe-needle U-100 (BD Insulin Syringe Ultra-Fine) As directed use 3 times day ketoconazole 2% 1 appl topical BID 2 weeks levothyroxine 125 mcg PO DAILY Magic Mouthwash Diphen/Nystat/Antacid 1:1:1 10 mL PO QID methylcellulose (laxative) (Citrucel) 500 mg PO DAILY metoprolol tartrate 25 mg PO BID 90 days ondansetron 8 mg PO Q8H pen needle, diabetic (Comfort EZ Pen [place]) As directed polyethylene glycol 3350 (Miralax) 17 grams PO DAILY PRN potassium chloride ER 20 mEq PO BID pyridoxine (vitamin B6) 100 mg PO DAILY 90 days rosuvastatin 40 mg PO BEDTIME tirzepatide (Mounjaro) 2.5 mg (0.5 mL) subcut QWEEK Tobacco use date assessed: 12/23/23 Dental Screening Dental Screen Date: 12/23/23 HPI follow up HPI Details 58-year-old female with past medical history of hypertension, breast cancer, diabetes mellitus, hypercholesterolemia, coronary artery disease, GERD, CKD stage 3, ischemic cardiomyopathy last seen December 2023 coming in for follow up. Patient complaining of pain and neuropathy in the hands and feet. She has been undergoing chemotherapy and was told by her oncologist this may be a side effect of the chemo treatment. 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 [facility] Medical History Breast cancer (~09/2023) Pyelonephritis Urine incontinence Low back pain Hearing deficit Preoperative cardiovascular examination Abnormal stress ECG with treadmill Abnormal echocardiogram Abnormal finding on mammography Breast mass, right Breast cancer, right Invasive ductal carcinoma of breast CKD (chronic kidney disease) stage 3, GFR 30-59 ml/min Bacterial conjunctivitis of both eyes Well woman exam Left navicular fracture of foot Vitamin B12 deficiency Thyroid nodule History of Clostridium difficile infection Coronary artery disease Hypercholesterolemia Depression Kidney stone Carpal tunnel syndrome Arthritis 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 Vitamin D deficiency Essential hypertension Type 2 diabetes mellitus with hyperglycemia Surgical History History of biopsy Hx of colonoscopy S/P triple vessel bypass Hx of toe surgery Hx of thyroidectomy History of renal stent Hx of section Hx of myomectomy Hx of tonsillectomy Family History Father DM (diabetes mellitus) Hypertension High cholesterol Spina bifida Kidney stone CAD (coronary artery disease) Mother DM (diabetes mellitus) Hypertension High cholesterol CAD (coronary artery disease) Bipolar 1 disorder Maternal Aunt Lung cancer Maternal Grandfather Lung cancer Other Mental health disorder Social History Household Members: Children Household Members Other:: daughter Housing: Apartment Do you presently have visiting nurse or other home services: No Alcohol intake: never Patient Tobacco Use Status: Never used Tobacco e-Cigarette/Vaping Use: Never Used Second Hand Smoke Exposure: No service: No Current occupational status: employed Cognitive needs: No Hearing needs: No Vision needs: Yes Female Reproductive History Menstrual Age of Menarche: 11 Questionnaire Thrive Questionnaire Date Thrive assessed: 03/22/24 I am a: Patient What is your living situation today?: I have a steady place to live Within the past 12 months, did the food you bought not last and you didn't have the money to get more?: Sometimes True Within the past 12 months, did you worry whether your food would run out before you got money to buy more?: Sometimes True Do you have trouble paying for medicines?: Yes Do you have trouble getting transportation to medical appointments?: No Do you have trouble paying your heating and electricity bill?: No Do you have trouble taking care of your child, family member or friend?: I choose not to answer this question Do you have trouble with day-to-day activities such as bathing, preparing meals, shopping, managing finances, etc.?: I choose not to answer this question Are you currently unemployed and looking for a job?: No Are you interested in more education?: I choose not to answer this question Currently or been in a relationship where the following occur: No concerns reported THRIVE Score: 2 AUDIT C Alcohol Use Questionnaire (AUDIT-C) 1. How often do you have a drink containing alcohol?: Never 3. How often do you have six or more drinks on one occasion?: Never Total Score: 0 HERB-7 AMB Questionnaire HERB-7 Date HERB - 7 assessed: 12/23/23 Feeling nervous, anxious, or on edge: 0 = Not at all Not being able to stop or control worryin = Not at all Worrying too much about different things: 2 = More than half the days Trouble relaxin = More than half the days Being so restless that it is hard to sit still: 0 = Not at all Becoming easily annoyed or irritable: 2 = More than half the days Feeling afraid as if something awful might happen: 0 = Not at all Total HERB-7 score (0-4 normal; 5-9 mild; 10-14 moderate; 15-21 severe): 6 Source: Developed by Drs. Suleiman John, Addie Reeves, Tonny Ramos and colleagues, with an educational dmitriy from [employer]. Review of Systems Const Denies anorexia, Denies body aches, Denies chills and Denies fever(s) Eyes Reports no additional complaints ENT Reports no additional complaints Card Denies chest pain, Denies leg edema, Denies lightheadedness and Denies dyspnea Resp Denies dyspnea GI Reports no additional complaints Reports no additional complaints Musc Details: Numbness and tingling in bilateral hands and feet Skin/Breast Reports system reviewed and no additional complaints, except as documented Physical exam (Primary Care) Vital Signs: Last Vital Signs Pulse 87 03/24/24 16:05 BP 110/60 03/24/24 16:05 Pulse Ox 98 03/24/24 16:05 Oxygen Delivery Method Room Air 03/24/24 16:05 BMI result Body Mass Index 30.4 Tobacco/Smoking Status: Tobacco use Status Tobacco use date assessed 12/23/23 03/24/24 16:09 Patient Tobacco Use Status Never used Tobacco 03/24/24 16:09 e-Cigarette/Vaping Use Never Used 03/24/24 16:09 Thrive Assessment: Date of Thrive Assessment Date Thrive assessed 03/22/24 03/24/24 16:09 Currently or been in a relationship where the following occur: No concerns reported Const General: cooperative, healthy appearing, comfortable and no acute distress Orientation/consciousness: patient oriented x3 HENMT Head: Yes normocephalic Ears: hearing grossly normal bilaterally General nose exam: Normal external nose present Eyes General: appearance normal, both eyes and all related structures Conjunctivae: conjunctivae normal Neck Neck: Yes full ROM and Yes no lymphadenopathy Resp Effort & Inspection: normal respiratory effort Auscultation: clear to auscultation bilaterally, no crackles, no rales, no rhonchi and no wheezes Cardio Rate: regular rate Rhythm: regular rhythm Skin General skin exam: no rashes or lesions noted Neuro General: patient oriented x3 Gait exam (Neuro): Normal gait present Extrem General: Yes normal to inspection, Yes full ROM and No edema Psych Affect: normal affect Attitude: cooperative Insight: Good insight present (Psych) Judgement: Good judgement present (Psych) Coding Level of Care Code Est Pt Level 3 (68351) Diagnoses Tinea pedis B35.3 Type 2 diabetes mellitus with diabetic polyneuropathy E11.42 Assessment & Plan Assessment & Plan (1) Tinea pedis: Code(s): B35.3 - Tinea pedis Category: Medical Plan: Reordered for ketoconazole cream. Advised patient to follow up with bed spring maker. (2) Type 2 diabetes mellitus with diabetic polyneuropathy: Code(s): E11.42 - Type 2 diabetes mellitus with diabetic polyneuropathy Category: Medical Plan: Decrease the amount of carbohydrates such as pasta, bread, rice, and potatoes and limit the amount of sweets. Although fruits are generally healthy they should be eaten in moderation as they are still high in sugar. Hemoglobin A1c goal of less than 7%. Patient complaining of neuropathy of bilateral hands and feet. We will trial gabapentin 100 mg at bedtime for symptom management. Plan This note was constructed using voice recognition software. While every effort has been made to ensure accuracy and almond blancher operator, still areas may have been included sometimes these areas may affect the content or meeting of the given symptoms. Total time spent caring for the patient today was 30 minutes. This includes time spent before the visit reviewing the chart, time spent during the visit, and time spent after the visit and documentation. Medications: New gabapentin 100 mg PO BEDTIME 30 caps 2RF Refilled ketoconazole 2% 1 appl topical BID 2 weeks 15 grams 0RF
== END 2024-03-24 16:24 | disposition home or self-care (01) ==
LOC: HO.HMCH 15:58
PROVIDERS: PCP Internal Medicine
DX: B35.3 Tinea pedis (principal); E11.42 Type 2 diabetes mellitus with diabetic polyneuropathy

== ENCOUNTER → 2024-03-24 15:57 | Outpatient (BNVA) | payer OTHER, SELFPAY ==
[2024-02-14 16:50] VITALS: BP 100/66; BP 104/60; BP 132/58; BMI 31.3
== END ==
PROVIDERS: PCP Internal Medicine
DX: B35.3 Tinea pedis (principal); E11.42 Type 2 diabetes mellitus with diabetic polyneuropathy
CPT/HCPCS: 99212

== ENCOUNTER → 2024-04-07 08:30 | Outpatient (BNV) | payer OTHER, SELFPAY ==
[2024-02-14 16:50] VITALS: BP 100/66; BP 104/60; BP 132/58; BMI 31.3
== END ==
PROVIDERS: PCP Internal Medicine; Visit Provider Radiology Diagnostic Radiology
DX: R92.1 Mammographic calcification found on diagnostic imaging of breast (principal); R92.323 Mammographic fibroglandular density, bilateral breasts; Z92.21 Personal history of antineoplastic chemotherapy
CPT/HCPCS: 76642; 77062; 77066

== ENCOUNTER 2024-04-07 08:32 | Outpatient (REF) | payer OTHER, SELFPAY ==
[2024-02-14 16:50] VITALS: BP 100/66; BP 104/60; BP 132/58; BMI 31.3
--- NOTE | ~2024-04-07 | MM_ITS ---
EXAMINATION: MM DIAGNOSTIC DIGITAL BREAST TOMOSYNTHESIS, BILATERAL US BREAST LIMITED, RIGHT MAMMOGRAPHY: CLINICAL INFORMATION: Follow-up right breast CA status post neoadjuvant chemotherapy. CA diagnosed 10/27/2023. COMPARISON: MRI breasts 12/04/2023. Mammography: 11/06/2023, and available priors. Ultrasound: 11/06/2023. Ultrasound-guided biopsy right breast 11/06/2023. TECHNIQUE: Digital breast tomosynthesis is performed in both the craniocaudal and mediolateral oblique views along with computer-aided detection (CAD). Synthesized 2D images are generated from the tomosynthesis. This was followed by targeted right breast ultrasound. FINDINGS: There are scattered areas of fibroglandular density (ACR BI-RADS breast composition Category b). Previously seen mass in the posterior central retroareolar region is not well seen. There is a butterfly shaped biopsy clip and the site. Please refer to the dedicated ultrasound. No additional suspicious findings in either breast. Benign calcifications both breasts. Stable parenchymal pattern. No skin or axillary abnormality. ULTRASOUND: CLINICAL INFORMATION: Follow-up BI-RADS 5 mass right breast status post neoadjuvant chemotherapy. COMPARISON: As above. TECHNIQUE: Targeted sonographic evaluation was performed using a high frequency linear transducer. Right breast was scanned in the central region. Selected archived documentation. FINDINGS: RIGHT BREAST: Mass in the 8:00 axis right breast, 2 cm from the nipple, currently is not seen whatsoever. Only the hydromark biopsy clip is present measuring 7 mm in diameter. (previously measured 2.8 x 2.6 x 3.4 cm on ultrasound). No masses no longer visualized with certainty. Only normal breast parenchyma is present. No additional abnormal findings. MM/MM tomosynthesis diagnostic BI IMPRESSION: 1. Previously seen mass in the central right breast has completely resolved on today's examinations. No residual seen on ultrasonography. 2. Recommend continued surgical and oncological management. OVERALL ASSESSMENT: Mammography: BI-RADS 6 - Known biopsy proven malignancy Ultrasound: BI-RADS 6 - Known biopsy proven malignancy RECOMMENDATION: 1. Patient should be managed based on the clinical impression. This patient's information was entered into a reminder system with a target due date for their next mammogram. Electronically signed by: Chalo Jacinto MD 04/07/2024 10:13 AM [facility]
== END 2024-04-07 08:33 | disposition home or self-care (01) ==
LOC: HO.MAMMO 08:32
PROVIDERS: PCP Internal Medicine; Visit Provider Internal Medicine Medical Oncology
DX: Z85.3 Personal history of malignant neoplasm of breast (principal)
CPT/HCPCS: 76642; 77062; 77066

== ENCOUNTER 2024-04-08 11:06 | Outpatient (AMB) | payer OTHER, SELFPAY ==
[2024-02-14 16:50] VITALS: BP 100/66; BP 104/60; BP 132/58; BMI 31.3
[2024-04-08 11:07] VITALS: BP 116/56; PULSE 65; BMI 32.2
--- NOTE | 2024-04-08 11:07 | A.OFFVIS_ITS ---
Vital Signs 04/08/24 11:07 Height 5 ft 2 in Weight 176 lb 2 oz BMI 32.2 BP 116/56 L Blood Pressure Location Rt brachial Position Sitting Pulse 65 Intake Visit Reasons: 12/20/23 [place] [facility] Follow up visit Intake Note: This patient presents for breast examination follow-up, [facility] breast MRI 12/20/2023. Pt c/o; reports no breast complaints at this time. Take Up Operator Required: No Accompanied by: Other Relationship Allergies dulaglutide [From TRULICITY] Allergy (Unknown, Verified 04/08/24 11:14) DIARRHEA AND VOMITTING liraglutide [From VICTOZA] Allergy (Unknown, Verified 04/08/24 11:14) DIARRHEA AND VOMITTING, vomiting and diahrrea Medication List - Last Reconciled 04/08/24 by Blas Shine MD acetone (urine) test (Ketone Urine Test strips) As directed if glucose running over 250, nausea or vomiting check urine for ketones. If + seek medical attention amlodipine 5 mg PO DAILY 90 days bisacodyl (Dulcolax (bisacodyl)) 5 mg PO BEDTIME blood pressure monitor (Blood Pressure Kit) As directed blood sugar diagnostic (FreeStyle Lite Strips) DIRECTED THREE TIMES A DAY blood-glucose meter,continuous (Dexcom G6 Route Vending Machine Servicer) As directed blood-glucose sensor (Dexcom G6 Sensor device) As directed every 10 days blood-glucose transmitter (Dexcom G6 Transmitter device) As directed one every 3 months dexamethasone 8 mg (2 x 4 mg) PO TID docusate sodium 100 mg PO BEDTIME empagliflozin (Jardiance) 10 mg PO DAILY ezetimibe (Zetia) 10 mg PO DAILY fluconazole 150 mg PO Q3D furosemide 40 mg PO DAILY 90 days gabapentin 100 mg PO BEDTIME insulin aspart U-100 Up to 150 units via pump subcut daily; 30 days insulin syringe-needle U-100 (BD Insulin Syringe Ultra-Fine) As directed use 3 times day ketoconazole 2% 1 appl topical BID 2 weeks levothyroxine 125 mcg PO DAILY Magic Mouthwash Diphen/Nystat/Antacid 1:1:1 10 mL PO QID methylcellulose (laxative) (Citrucel) 500 mg PO DAILY metoprolol tartrate 25 mg PO BID 90 days ondansetron 8 mg PO Q8H pen needle, diabetic (Comfort EZ Pen [place]) As directed polyethylene glycol 3350 (Miralax) 17 grams PO DAILY PRN potassium chloride ER 1 tab PO BID pyridoxine (vitamin B6) 100 mg PO DAILY 90 days rosuvastatin 40 mg PO BEDTIME tirzepatide (Mounjaro) 2.5 mg (0.5 mL) subcut QWEEK HPI HPI 12/20/23 [place] [facility] Follow up visit: Details: [age] year old female here for follow-up for her invasive ductal cancer of the right breast. I had been seeing her since October of 2023 for this. At that time, she had a mass, up to 3.4 cm, lobular, at the 8 o'clock position of the right breast and biopsies of this had shown an invasive ductal carcinoma. This was ER positive UT negative HER2 negative. Initially, there was concern about extension into the pectoralis. However, an MRI did not reveal involvement of the pectoralis muscle. However, in view of the size of the mass, she was recommended to undergo neoadjuvant chemotherapy .She underwent neoadjuvant treatment with Taxotere and Cytoxan with Dr. Vasquez. She had completed neoadjuvant treatment. Her follow-up breast mammogram shows that the previously mass in the central right breast had completely resolved. N o residual masses seen on sonogram. She seems to be doing well overall. She did have some neuropathy from her chemotherapy. [facility] Medical History Breast cancer (~09/2023) Pyelonephritis Urine incontinence Low back pain Hearing deficit Preoperative cardiovascular examination Abnormal stress ECG with treadmill Abnormal echocardiogram Abnormal finding on mammography Breast mass, right Breast cancer, right Invasive ductal carcinoma of breast CKD (chronic kidney disease) stage 3, GFR 30-59 ml/min Bacterial conjunctivitis of both eyes Well woman exam Left navicular fracture of foot Vitamin B12 deficiency Thyroid nodule History of Clostridium difficile infection Coronary artery disease Hypercholesterolemia Depression Kidney stone Carpal tunnel syndrome Arthritis 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 Vitamin D deficiency Essential hypertension Type 2 diabetes mellitus with hyperglycemia Surgical History History of biopsy Hx of colonoscopy S/P triple vessel bypass Hx of toe surgery Hx of thyroidectomy History of renal stent Hx of section Hx of myomectomy Hx of tonsillectomy Family History Father DM (diabetes mellitus) Hypertension High cholesterol Spina bifida Kidney stone CAD (coronary artery disease) Mother DM (diabetes mellitus) Hypertension High cholesterol CAD (coronary artery disease) Bipolar 1 disorder Maternal Aunt Lung cancer Maternal Grandfather Lung cancer Other Mental health disorder Social History Household Members: Children Household Members Other:: daughter Housing: Apartment Do you presently have visiting nurse or other home services: No Alcohol intake: never Patient Tobacco Use Status: Never used Tobacco e-Cigarette/Vaping Use: Never Used Second Hand Smoke Exposure: No service: No Current occupational status: employed Cognitive needs: No Hearing needs: No Vision needs: Yes Female Reproductive History Menstrual Age of Menarche: 11 Review of Systems Const Denies chills and Denies fever(s) Card Denies chest pain, Denies dyspnea and Denies dyspnea on exertion Resp Denies cough, Denies dyspnea and Denies dyspnea on exertion GI Denies hematochezia and Denies change in bowel habits Denies hematuria Musc Denies back pain and Denies limited range of motion Neuro Denies focal weakness and Denies convulsions Psych Denies depression and Denies mood swings Physical Exam Vital Signs: Last Vital Signs Pulse 65 04/08/24 11:07 BP 116/56 L 04/08/24 11:07 BMI result Body Mass Index 32.2 Const General: comfortable and no acute distress Orientation/consciousness: patient oriented x3 Neck Neck: Yes no lymphadenopathy Chest Other: No palpable mass on the right breast, no axillary lymphadenopathy Resp Auscultation: clear to auscultation bilaterally Cardio Rhythm: regular rhythm GI Palpation (GI): Soft to palpation, nontender and no guarding Neuro General: patient oriented x3 Assessment & Plan Assessment & Plan (1) Invasive ductal carcinoma of breast: Comment: October 2023 right breast Code(s): C50.919 - Malignant neoplasm of unspecified site of unspecified female breast Category: Medical Plan: She has responded very well to neoadjuvant treatment. Her follow-up mammogram shows that the previously seen mass in the central right breast has completely resolved. The biopsy clip is still seen She now wants to schedule for definitive surgical treatment. She understands the option of has conservation therapy followed by radiation, versus mastectomy. Both of these will require sentinel node biopsies She wants to proceed with lumpectomy instead of mastectomy. This will be done with the Hologic localizer. She understood the technique of the planned procedure. She is aware of the risks, benefits, and alternatives She understands that she will need radiation therapy postop to complete the treatment. She also understands that if she positive margins, she will need further excision. I will discuss this with Dr. Vasquez as well. It appears that the patient was responded very well to neoadjuvant treatment. Her family was with her during the visit. She does state that she planning to have this done in May,. She will see Dr. Vasquez again in 3 weeks. Coding Level of Care Code Est Pt Level 4 (39105) Diagnoses Invasive ductal carcinoma of breast C50.919
== END 2024-04-08 11:38 | disposition home or self-care (01) ==
PROVIDERS: PCP Internal Medicine; Visit Provider Surgery
DX: C50.919 Malignant neoplasm of unspecified site of unspecified female breast (principal)
CPT/HCPCS: 99214

== ENCOUNTER → 2024-04-08 11:06 | Outpatient (BNVA) | payer OTHER, SELFPAY ==
[2024-02-14 16:50] VITALS: BP 100/66; BP 104/60; BP 132/58; BMI 31.3
== END ==
PROVIDERS: PCP Internal Medicine; Visit Provider Surgery
DX: C50.511 Malignant neoplasm of lower-outer quadrant of right female breast (principal); Z17.0 Estrogen receptor positive status [ER+]; Z17.22 Progesterone receptor negative status; Z17.32 Human epidermal growth factor receptor 2 negative status; Z92.21 Personal history of antineoplastic chemotherapy
CPT/HCPCS: 99212

== ENCOUNTER 2024-04-20 16:05 | Outpatient (AMB) | payer OTHER, SELFPAY ==
[2024-02-14 16:50] VITALS: BP 100/66; BP 104/60; BP 132/58; BMI 31.3
[2024-04-20 16:26] VITALS: BP 118/62; PULSE 68; O2SAT 97; BMI 30.7
--- NOTE | 2024-04-20 16:26 | MHC.PC.OV ---
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 Required: No Accompanied by: Self / Same As Patient Allergies dulaglutide [From TRULICITY] Allergy (Unknown, Verified 04/20/24 16:27) DIARRHEA AND VOMITTING liraglutide [From VICTOZA] Allergy (Unknown, Verified 04/20/24 16:27) DIARRHEA AND VOMITTING, vomiting and diahrrea Tobacco use date assessed: 12/23/23 Dental Screening Dental Screen Date: 04/20/24 Did you have a dental visit in the last 12 months?: No Did you have a dental problem in the last 6 months where you did not have access to dental care?: No Was dental information given to patient?: Patient has dentist HPI follow up HPI Details 59-year-old obese female(noted 8 lb weight loss) with uncontrolled diabetes mellitus postsurgical hypothyroidism hypertension coronary artery disease hypercholesterolemia GERD chronic kidney disease stage 3 coming in for follow-up. Patient also has a history of breast cancer right October 2023. . 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 04/08/2024 neoadjuvant treatment with Taxotere and Cytoxan. Patient will have lumpectomy instead of mastectomy. And will need radiation therapy postop. Patient has also followed up with Hematology-Oncology 04/07/2024 patient had some neuropathy and was placed on gabapentin. Patient had an echocardiogram in March 20 The left ventricular systolic function is mildly decreased. The visually estimated ejection fraction is between 45-50%. As for nephrolithiasis patient has seen Urology also surveillance monitoring being done. Advised to do KUB in May.. Patient also follows up with endocrinology February 2024 presently on an insulin pump, Chato and Gianni.. Patient also follows up with Gastroenterology June for colon test. Patient also follows up with Nephrology diabetic kidney disease chronic kidney disease stage 3. states pump is not working , hence BS high [facility] Medical History Breast cancer (~09/2023) Pyelonephritis Urine incontinence Low back pain Hearing deficit Preoperative cardiovascular examination Abnormal stress ECG with treadmill Abnormal echocardiogram Abnormal finding on mammography Breast mass, right Breast cancer, right Invasive ductal carcinoma of breast CKD (chronic kidney disease) stage 3, GFR 30-59 ml/min Bacterial conjunctivitis of both eyes Well woman exam Left navicular fracture of foot Vitamin B12 deficiency Thyroid nodule History of Clostridium difficile infection Coronary artery disease Hypercholesterolemia Depression Kidney stone Carpal tunnel syndrome Arthritis 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 Vitamin D deficiency Essential hypertension Type 2 diabetes mellitus with hyperglycemia Surgical History History of biopsy Hx of colonoscopy S/P triple vessel bypass Hx of toe surgery Hx of thyroidectomy History of renal stent Hx of section Hx of myomectomy Hx of tonsillectomy Family History Father DM (diabetes mellitus) Hypertension High cholesterol Spina bifida Kidney stone CAD (coronary artery disease) Mother DM (diabetes mellitus) Hypertension High cholesterol CAD (coronary artery disease) Bipolar 1 disorder Maternal Aunt Lung cancer Maternal Grandfather Lung cancer Other Mental health disorder Social History Household Members: Children Household Members Other:: daughter Housing: Apartment Do you presently have visiting nurse or other home services: No Alcohol intake: never Patient Tobacco Use Status: Never used Tobacco e-Cigarette/Vaping Use: Never Used Second Hand Smoke Exposure: No service: No Current occupational status: employed Cognitive needs: No Hearing needs: No Vision needs: Yes Female Reproductive History Menstrual Age of Menarche: 11 Questionnaire Thrive Questionnaire Date Thrive assessed: 03/22/24 I am a: Patient What is your living situation today?: I have a steady place to live Within the past 12 months, did the food you bought not last and you didn't have the money to get more?: Sometimes True Within the past 12 months, did you worry whether your food would run out before you got money to buy more?: Sometimes True Do you have trouble paying for medicines?: Yes Do you have trouble getting transportation to medical appointments?: No Do you have trouble paying your heating and electricity bill?: No Do you have trouble taking care of your child, family member or friend?: I choose not to answer this question Do you have trouble with day-to-day activities such as bathing, preparing meals, shopping, managing finances, etc.?: I choose not to answer this question Are you currently unemployed and looking for a job?: No Are you interested in more education?: I choose not to answer this question Currently or been in a relationship where the following occur: No concerns reported THRIVE Score: 2 HERB-7 AMB Questionnaire HERB-7 Date HERB - 7 assessed: 12/23/23 Source: Developed by Drs. Suleiman John, Addie Reeves, Tonny Ramos and colleagues, with an educational dmitriy from [employer]. Physical exam (Primary Care) Vital Signs: Last Vital Signs Pulse 68 04/20/24 16:26 BP 118/62 04/20/24 16:26 Pulse Ox 97 04/20/24 16:26 Oxygen Delivery Method Room Air 04/20/24 16:26 BMI result Body Mass Index 30.7 Tobacco/Smoking Status: Tobacco use Status Tobacco use date assessed 12/23/23 04/20/24 16:30 Patient Tobacco Use Status Never used Tobacco 04/20/24 16:30 e-Cigarette/Vaping Use Never Used 04/20/24 16:30 Thrive Assessment: Date of Thrive Assessment Date Thrive assessed 03/22/24 04/20/24 16:30 Currently or been in a relationship where the following occur: No concerns reported Const General: alert; No acute distress Eyes Conjunctivae: conjunctivae normal Resp Auscultation: clear to auscultation bilaterally Cardio Rate: regular rate Rhythm: regular rhythm GI Inspection: Yes normal to inspection Extrem General: Yes normal to inspection and No edema Office Procedures Flu Questionnaire Does the patient have a severe egg allergy?: No Results AMB Hemoglobin A1c AMB Hemoglobin A1c 8.8 % Last Edit by DERICK Myers on 04/20/24 16:35 Immunizations Fluarix Triv [id number] (PF) 45 mcg (15 mcg x 3)/0.5 mL IM syringe Performing Provider: Dany Rubio MD [facility] Documented (not given) by: DERICK Myers on 04/20/24 16:32 Reason Not Given: Patient Refused Results Reviewed Results Reviewed: Laboratory Last Values Hgb A1c (Clinic) 8.8 % (4.0-6.0) H 04/20/24 16:21 Coding Level of Care Code Est Pt Level 4 (77300) Complex EM visit Add On G2211 Diagnoses Invasive ductal carcinoma of breast C50.919 Type 2 diabetes mellitus with hyperglycemia, without long-term current use of insulin E11.65 Diabetes mellitus moth exterminator insulin use: without senior care use Hypercholesterolemia E78.00 Coronary artery disease involving [place] coronary artery of [place] heart without angina pectoris I25.10 Coronary Disease-Associated Artery/Lesion type: [place] artery [place] vs. transplanted heart: [place] heart Associated angina: without angina Gastroesophageal reflux disease, unspecified whether esophagitis present K21.9 Esophagitis presence: esophagitis presence not specified Postsurgical hypothyroidism E89.0 Essential hypertension I10 Assessment & Plan Assessment & Plan (1) Invasive ductal carcinoma of breast: Comment: October 2023 right breast Code(s): C50.919 - Malignant neoplasm of unspecified site of unspecified female breast Category: Medical Plan: Patient is being followed up by hematology oncology and planned lumpectomy as well as postop radiation. Presently on chemotherapy (2) Type 2 diabetes mellitus with hyperglycemia: Code(s): E11.65 - Type 2 diabetes mellitus with hyperglycemia Category: Medical Qualifiers: Diabetes mellitus senior care insulin use: without moth exterminator use Qualified Code(s): E11.65 - Type 2 diabetes mellitus with hyperglycemia Plan: Decrease the amount of carbohydrate intake, pasta, bread, rice and potatoes are all sugar and that is aside from all the sweet stuff, remember that fruits are good but they are Sweet also. Patient follows up with endocrinology on insulin pump Jaycee (3) Hypercholesterolemia: Code(s): E78.00 - Pure hypercholesterolemia, unspecified Category: Medical Plan: Avoid fried foods, chicken skin, eggs, butter margarine, pastries and meat. Be it pork or beef they have a lot of cholesterol LDL goal of less than 70 and triglyceride of less than 150 on rosuvastatin 40 mg once a day (4) Coronary artery disease: Comment: Catheterization stent placement September 2014, CABG 12/2021 Code(s): I25.10 - Atherosclerotic heart disease of [place] coronary artery without angina pectoris Category: Medical Qualifiers: Coronary Disease-Associated Artery/Lesion type: [place] artery [place] vs. transplanted heart: [place] heart Associated angina: without angina Qualified Code(s): I25.10 - Atherosclerotic heart disease of [place] coronary artery without angina pectoris Plan: Control the cholesterol, weight, blood pressure, diabetes (5) GERD (gastroesophageal reflux disease): Code(s): K21.9 - Gastro-esophageal reflux disease without esophagitis Category: Medical Qualifiers: Esophagitis presence: esophagitis presence not specified Qualified Code(s): K21.9 - Gastro-esophageal reflux disease without esophagitis Plan: Avoid the foods that causes that usually spicy foods, tomato products, juices, coffee, soda and foods that your sensitive to. After eating do not lie down, allow 3-4 hours before in lie down. And keep the head of bed above 30 degrees to avoid the acid from going up. (6) Postsurgical hypothyroidism: Code(s): E89.0 - Postprocedural hypothyroidism Category: Medical Plan: Continue with thyroid medication (7) Essential hypertension: Code(s): I10 - Essential (primary) hypertension Category: Medical Plan: Continue with blood pressure medication. Decrease salt intake and exercise on amlodipine 5 mg once a day metoprolol 25 mg twice a day Orders: Orders Complete Blood Count Auto Diff Today E11.65 - Type 2 diabetes mellitus with hyperglycemia Free T4 (Free Thyroxine) Today E11.65 - Type 2 diabetes mellitus with hyperglycemia Vitamin B12 and Folate Today E11.65 - Type 2 diabetes mellitus with hyperglycemia Vitamin D 25-OH Total Today E11.65 - Type 2 diabetes mellitus with hyperglycemia Ferritin Today E11.65 - Type 2 diabetes mellitus with hyperglycemia Reticulocyte Count Today E11.65 - Type 2 diabetes mellitus with hyperglycemia AMB Hemoglobin A1c Today E11.65 - Type 2 diabetes mellitus with hyperglycemia Influenza [id number] Immunization Today Z23 - Encounter for immunization Comprehensive Met. Panel Today E11.65 - Type 2 diabetes mellitus with hyperglycemia Creatinine Urine Today E11.65 - Type 2 diabetes mellitus with hyperglycemia Microalbumin, Random (w Creat) Today E11.65 - Type 2 diabetes mellitus with hyperglycemia Lipid Panel Today E11.65 - Type 2 diabetes mellitus with hyperglycemia, E78.00 - Pure hypercholesterolemia, unspecified Thyroid Stimulating Hormone Today E11.65 - Type 2 diabetes mellitus with hyperglycemia IRON PROFILE Today E11.65 - Type 2 diabetes mellitus with hyperglycemia Medications: New aspirin (Adult Aspirin Regimen) 81 mg PO DAILY 30 tabs 11RF I25.10 - Atherosclerotic heart disease of [place] coronary artery without angina pectoris Refilled insulin syringe-needle U-100 (BD Insulin Syringe Ultra-Fine) As directed use 3 times day 100 ea 4RF gabapentin 100 mg PO BEDTIME 90 caps 2RF E11.65 - Type 2 diabetes mellitus with hyperglycemia
== END 2024-04-20 17:00 | disposition home or self-care (01) ==
PROVIDERS: PCP Internal Medicine; Visit Provider Internal Medicine
DX: C50.919 Malignant neoplasm of unspecified site of unspecified female breast (principal); E11.65 Type 2 diabetes mellitus with hyperglycemia; E78.00 Pure hypercholesterolemia, unspecified; I25.10 Atherosclerotic heart disease of native coronary artery without angina pectoris; K21.9 Gastro-esophageal reflux disease without esophagitis; E89.0 Postprocedural hypothyroidism; I10 Essential (primary) hypertension; Z23 Encounter for immunization

== ENCOUNTER → 2024-04-20 16:05 | Outpatient (BNVA) | payer OTHER, SELFPAY ==
[2024-02-14 16:50] VITALS: BP 100/66; BP 104/60; BP 132/58; BMI 31.3
== END ==
PROVIDERS: PCP Internal Medicine; Visit Provider Internal Medicine
DX: C50.919 Malignant neoplasm of unspecified site of unspecified female breast (principal); E11.65 Type 2 diabetes mellitus with hyperglycemia; E78.00 Pure hypercholesterolemia, unspecified; I25.10 Atherosclerotic heart disease of native coronary artery without angina pectoris; K21.9 Gastro-esophageal reflux disease without esophagitis; I10 Essential (primary) hypertension; E89.0 Postprocedural hypothyroidism
CPT/HCPCS: 83036; 90471; 99212

== ENCOUNTER 2024-05-21 08:00 | Outpatient (REF) | payer OTHER, SELFPAY ==
[2024-02-14 16:50] VITALS: BP 100/66; BP 104/60; BP 132/58; BMI 31.3
--- NOTE | ~2024-05-21 | MM_ITS ---
EXAMINATION: MM MAMMOGRAM GUIDED RFID LOCALIZATION BREAST, RIGHT BREAST CLINICAL INFORMATION: Right breast invasive ductal carcinoma status post neoadjuvant chemotherapy. COMPARISON: Comparison is made with available prior examinations. TECHNIQUE NEEDLE LOC: Proper informed consent is obtained from the patient after discussion of the procedure, potential risks and complications, and alternatives including declining the procedure today. Patient was given an opportunity for questions. The patient appeared to understand. The patient consented to the procedure and signed the consent form. GUIDANCE: Digital mammography. APPROACH: Lateral Medial. TARGET: Butterfly marker clip.. ANESTHESIA: carbonated lidocaine 1%: 5 mL. LOCALIZATION SYSTEM: [email or web address] LOCallizer Wire-Free Guidance System with 12g needle applicator. RADIOFREQUENCY TAG: ID # [id number] DERMATOTOMY: Single skin-geri dermatotomy performed. RF Tag ID confirmed with LOCalizer Guidance System prior to placement. The skin is prepped and local anesthesia administered. The needle is positioned and RFID tag deployed. Final images demonstrate the LOCalizer RF tag to reside adjacent to the marker clip. The patient tolerated the procedure well and had no immediate complications. Dressing placed and home instructions reviewed. MM/MM RF Tag device RT IMPRESSION: -Status post right breast RFID localization. Electronically signed by: Chandni Almanza DO 05/21/2024 09:36 AM [facility]
[2024-05-21] MEDS: Sodium Bicarbonate 8.4% 50 MEQ/50 ML VIAL SUBCUT (08:56)
== END 2024-05-21 08:01 | disposition home or self-care (01) ==
LOC: HO.MAMMO 08:00
PROVIDERS: PCP Internal Medicine; Visit Provider Surgery
DX: C50.911 Malignant neoplasm of unspecified site of right female breast (principal); Z92.21 Personal history of antineoplastic chemotherapy
CPT/HCPCS: 19281; C1819

== ENCOUNTER → 2024-05-21 08:00 | Outpatient (BNV) | payer OTHER, SELFPAY ==
[2024-02-14 16:50] VITALS: BP 100/66; BP 104/60; BP 132/58; BMI 31.3
== END ==
PROVIDERS: PCP Internal Medicine; Visit Provider Internal Medicine
DX: D05.11 Intraductal carcinoma in situ of right breast (principal); Z92.21 Personal history of antineoplastic chemotherapy
CPT/HCPCS: 19281

== ENCOUNTER 2024-05-26 07:30 | Day surgery (SDC) | payer OTHER, SELFPAY ==
[2024-02-14 16:50] VITALS: BP 100/66; BP 104/60; BP 132/58; BMI 31.3
[2024-05-18 14:06] VITALS: BP 151/83; PULSE 64; RESP 16; O2SAT 95; BMI 32.0
--- NOTE | 2024-05-19 11:40 | P.CONAN_ITS ---
Documented by User: Priscilla Krishna NP 05/19/24 11:51 HPI - Anesthesia Eval Consult details Narrative: 59yo F for Right Breast Lumpectomy w/LOCalizer, [place] Node Biopsy, 05/26/24 Chemo, last cycle 04/27/24 Anesthesia unavailable for PAT 05/18/24. +1 edema per PAT RN assess Follows [facility] [place] Cardiology for CAD s/p CABG 2021 - stable at 12/2023 and optimized for surgery Insulin pump in situ Port Left chest Anesthesia Pre-Procedure Meds Is the patient on any of the following meds?: SGLT2 Inhib PMFSH Active Problems Active Problems: All Active Problems UTI (urinary tract infection) (Acute) Dysuria (Acute) Ischemic cardiomyopathy (Acute) Peripheral vascular disease (Acute) Recurrent UTI (Acute) Renal calculus, bilateral (Acute) UTI (urinary tract infection) (Acute) Well woman exam (Acute) Constipation (Acute) Tubular adenoma of colon (Acute) Tinea pedis (Acute) GERD (gastroesophageal reflux disease) (Acute) Hypersomnia (Acute) Annual physical exam (Acute) UTI (urinary tract infection) (Acute) COVID-19 virus infection (Acute) UTI (urinary tract infection) (Acute) Invasive ductal carcinoma of breast (Acute) CKD (chronic kidney disease) stage 3, GFR 30-59 ml/min (Acute) Kidney stone (Acute) Coronary artery disease (Acute) Hypercholesterolemia (Acute) Type 2 diabetes mellitus with hyperglycemia (Acute) Type 2 diabetes mellitus with diabetic polyneuropathy (Acute) Postsurgical hypothyroidism (Acute) Vitamin D deficiency (Acute) Essential hypertension (Acute) Past Medical History Medical History (Updated 05/18/24 @ 13:39 by Alisha Parikh RN) History of MRSA infection Port-A-Cath in place Hypokalemia Thyroid disease Insulin pump in place Numbness Cough SOB (shortness of breath) On beta suzanne at home CHF (congestive heart failure) History of chemotherapy Neuropathy Myocardial infarction Breast cancer (~09/2023) Preoperative cardiovascular examination Invasive ductal carcinoma of breast Breast cancer, right Breast mass, right Abnormal finding on mammography Abnormal echocardiogram Abnormal stress ECG with treadmill Hearing deficit CKD (chronic kidney disease) stage 3, GFR 30-59 ml/min Low back pain Bacterial conjunctivitis of both eyes Urine incontinence Well woman exam Pyelonephritis Left navicular fracture of foot Vitamin B12 deficiency Thyroid nodule History of Clostridium difficile infection Coronary artery disease Hypercholesterolemia Depression Kidney stone Carpal tunnel syndrome Arthritis 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 Vitamin D deficiency Essential hypertension Type 2 diabetes mellitus with hyperglycemia Family History Family History Father DM (diabetes mellitus) Hypertension High cholesterol Spina bifida Kidney stone CAD (coronary artery disease) Mother DM (diabetes mellitus) Hypertension High cholesterol CAD (coronary artery disease) Bipolar 1 disorder Maternal Aunt Lung cancer Maternal Grandfather Lung cancer Other Mental health disorder Surgical History Surgical History (Updated 05/18/24 @ 13:26 by Alisha Parikh RN) History of coronary artery stent placement History of biopsy Hx of colonoscopy S/P triple vessel bypass Hx of toe surgery Hx of thyroidectomy History of renal stent Hx of section Hx of myomectomy Hx of tonsillectomy Social History Social History Household Members: Children Household Members Other:: daughter Housing: Apartment Are you a primary infant childcare provider to a significant other at home: No Do you presently have visiting nurse or other home services: No Alcohol intake: never Patient Tobacco Use Status: Never used Tobacco e-Cigarette/Vaping Use: Never Used Second Hand Smoke Exposure: No Use of substances other than those prescribed or required for medical reasons: No Have you been hit, kicked, punched, or otherwise hurt by someone within the past year? If so, by whom?: No Advance Directives: No Advance Directives Information Provided: Yes Advance Directives on File: No Recently lost weight without trying: No Eating poorly because of decreased appetite: No Nutrition Risks: No Nutritional Risk Patient : No : No Poor oral hygiene: Yes (missing teeth) service: No Current occupational status: employed Cognitive needs: No Hearing needs: No Vision needs: Yes Meds Allergies Allergy/AdvReac Type Severity Reaction Status Date / Time dulaglutide [From TRULICITY] Allergy Unknown DIARRHEA Verified 04/20/24 16:27 AND VOMITTING liraglutide [From VICTOZA] Allergy Unknown DIARRHEA Verified 04/20/24 16:27 AND VOMITTING, vomiting and diahrrea Home Medications ?Medication ?Instructions ?Recorded ?Confirmed ?Last Taken ?Type polyethylene glycol 3350 17 gram 17 g PO DAILY PRN Constipation 11/22/23 05/18/24 Unknown History oral powder packet (Miralax) cholecalciferol (vitamin D3) 50 50 mcg PO DAILY 05/18/24 05/18/24 Unknown History mcg (2,000 unit) capsule (Vitamin D3) docusate sodium 100 mg capsule 100 mg PO BEDTIME 05/18/24 05/18/24 Unknown History gabapentin 100 mg capsule 100 mg PO BEDTIME PRN Pain 05/18/24 05/18/24 Unknown History pantoprazole 40 mg tablet,delayed 40 mg PO DAILY PRN Acid Reflux 05/18/24 05/18/24 Unknown History release potassium chloride 20 mEq 1 tab PO DAILY 05/18/24 05/18/24 Unknown History tablet,extended release sennosides 8.6 mg tablet (senna) 8.6 mg PO BEDTIME 05/18/24 05/18/24 Unknown History Exam Height,Weight and Vital Signs: Height 5 ft 2 in Weight 79.379 kg Last Vital Signs Pulse 64 05/18/24 14:06 Resp 16 05/18/24 14:06 BP 151/83 H 05/18/24 14:06 Pulse Ox 95 05/18/24 14:06 O2 Del Method Room Air 05/18/24 14:06 Pertinent Lab Results Pertinent Lab Results: Laboratory Tests 04/27/24 09:45 WBC 15.4 H Hgb 11.6 L Hct 35.2 L Plt Count 317 Sodium 135 Potassium 3.9 Chloride 103 Carbon Dioxide 24 BUN 17 H Creatinine 0.92 Narrative Narrative: ECHO 02/2024 Conclusions: - The left ventricular systolic function is mildly decreased. The visually estimated ejection fraction is between 45-50%. - Wall motion abnormalities related to underlying coronary disease. - No obvious valvular pathology seen on this study. EKG 12/2023 EKG Details: EKG with underlying sinus rhythm at 65/Min; can not exclude old septal infarct; nonspecific ST-T changes. Assessment and Plan Assessment Anesthesia Assessment: Chart Reviewed Documented by User: Ahmet Hernandez MD 05/26/24 17:23 [facility] Past Medical History Medical History (Updated 05/18/24 @ 13:39 by Alisha Parikh RN) History of MRSA infection Port-A-Cath in place Hypokalemia Thyroid disease Insulin pump in place Numbness Cough SOB (shortness of breath) On beta suzanne at home CHF (congestive heart failure) History of chemotherapy Neuropathy Myocardial infarction Breast cancer (~09/2023) Preoperative cardiovascular examination Invasive ductal carcinoma of breast Breast cancer, right Breast mass, right Abnormal finding on mammography Abnormal echocardiogram Abnormal stress ECG with treadmill Hearing deficit CKD (chronic kidney disease) stage 3, GFR 30-59 ml/min Low back pain Bacterial conjunctivitis of both eyes Urine incontinence Well woman exam Pyelonephritis Left navicular fracture of foot Vitamin B12 deficiency Thyroid nodule History of Clostridium difficile infection Coronary artery disease Hypercholesterolemia Depression Kidney stone Carpal tunnel syndrome Arthritis 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 Vitamin D deficiency Essential hypertension Type 2 diabetes mellitus with hyperglycemia Family History Family History Father DM (diabetes mellitus) Hypertension High cholesterol Spina bifida Kidney stone CAD (coronary artery disease) Mother DM (diabetes mellitus) Hypertension High cholesterol CAD (coronary artery disease) Bipolar 1 disorder Maternal Aunt Lung cancer Maternal Grandfather Lung cancer Other Mental health disorder Family history of problems with anesthesia: No Surgical History Surgical History (Updated 05/18/24 @ 13:26 by Alisha Parikh RN) History of coronary artery stent placement History of biopsy Hx of colonoscopy S/P triple vessel bypass Hx of toe surgery Hx of thyroidectomy History of renal stent Hx of section Hx of myomectomy Hx of tonsillectomy History of Problems with Anesthesia: No Social History Social History Household Members: Children Household Members Other:: daughter Housing: Apartment Are you a primary infant childcare provider to a significant other at home: No Do you presently have visiting nurse or other home services: No Alcohol intake: never Patient Tobacco Use Status: Never used Tobacco e-Cigarette/Vaping Use: Never Used Second Hand Smoke Exposure: No Use of substances other than those prescribed or required for medical reasons: No Have you been hit, kicked, punched, or otherwise hurt by someone within the past year? If so, by whom?: No Advance Directives: No Advance Directives Information Provided: Yes Advance Directives on File: No Recently lost weight without trying: No Eating poorly because of decreased appetite: No Nutrition Risks: No Nutritional Risk Patient : No : No Poor oral hygiene: Yes (missing teeth) service: No Current occupational status: employed Cognitive needs: No Hearing needs: No Vision needs: Yes Meds Allergies Allergy/AdvReac Type Severity Reaction Status Date / Time dulaglutide [From TRULICITY] Allergy Unknown DIARRHEA Verified 04/20/24 16:27 AND VOMITTING liraglutide [From VICTOZA] Allergy Unknown DIARRHEA Verified 04/20/24 16:27 AND VOMITTING, vomiting and diahrrea Home Medications ?Medication ?Instructions ?Recorded ?Confirmed ?Last Taken ?Type polyethylene glycol 3350 17 gram 17 g PO DAILY PRN Constipation 11/22/23 05/18/24 Unknown History oral powder packet (Miralax) cholecalciferol (vitamin D3) 50 50 mcg PO DAILY 05/18/24 05/18/24 Unknown History mcg (2,000 unit) capsule (Vitamin D3) docusate sodium 100 mg capsule 100 mg PO BEDTIME 05/18/24 05/18/24 Unknown History gabapentin 100 mg capsule 100 mg PO BEDTIME PRN Pain 05/18/24 05/18/24 Unknown History pantoprazole 40 mg tablet,delayed 40 mg PO DAILY PRN Acid Reflux 05/18/24 1 Unknown History release potassium chloride 20 mEq 1 tab PO DAILY 05/18/24 05/18/24 Unknown History tablet,extended release sennosides 8.6 mg tablet (senna) 8.6 mg PO BEDTIME 05/18/24 05/18/24 Unknown History Exam Airway Mallampati Class: II TM Dist: >3cm Neck ROM: Full Loose/Missing/Broken Teeth: Yes Assessment and Plan Assessment Anesthesia Assessment: Anesthesia Plan Discussed Final Anesthetic Review Family History of Problems with Anesthesia: No History of Problems with Anesthesia: No NPO: Yes ASA Class: III Final Preanesthetic Review: No Changes in Pt Med Stat, Meds/Allgs Chart Reviewed, Consent Obtained/Reviewed and Anes Risks/Benef Reviewed Patient Risk: Intermediate Procedure Risk: Low Anesthetic Plan Anesthetic Plan: MAC: Disposition: Standard PACU
[2024-05-26] VITALS (7 sets, daily range): BP systolic 101–115; BP diastolic 46–58; PULSE 66–74; RESP 11–16; TEMP 36.1; O2SAT 92–96
--- NOTE | ~2024-05-26 | NM_ITS ---
EXAMINATION: Right breast sentinel node imaging. CLINICAL INDICATION: Right breast invasive ductal carcinoma. COMPARISON: Right breast MRI 12/04/2023. TECHNIQUE: Following explaining right breast and lower procedure, benefits in risk aerated and consent was obtained. 4% and lidocaine jelly was applied on the right breast areola left. 0.5 mCi of 99m technetium lymphoseek divided in 4 equal doses was then injected in 4 quadrants around the right breast areola. Imaging was obtained 20 minutes later. FINDINGS: There is four-quadrant isotope activity surrounding the right breast areola. Solitary sentinel node in the right anterior axilla. No additional areas of isotope activity seen. NM/NM sentinel node w imaging IMPRESSION: Solitary sentinel node right axilla on right breast lymphoscintigraphy. Electronically signed by: Дмитрий Cruz MD 05/26/2024 03:43 PM [facility]
--- NOTE | ~2024-05-26 | MM_ITS ---
Single right breast specimen radiograph demonstrates the RFID tag and the clip within the specimen. Electronically signed by: Chandni Almanza DO 05/26/2024 03:40 PM [facility]
--- NOTE | 2024-05-26 07:51 | PC.NURSE ---
patient reported having chest pain yesterday, none reported today. Dr. Hernandez and Dr. Betancourt notified via [facility].
[2024-05-26] MEDS: Lidocaine 4 % Cream KIT 1 APPL TOPICAL (08:05)
[2024-05-26 08:10] LABS: Glucose, Whole Blood 94 mg/dL (60-115)
--- NOTE | 2024-05-26 08:30 | ECG_ITS ---
Test Reason : chest pain Blood Pressure : */* mmHG Vent. Rate : 55 BPM Atrial Rate : 55 BPM P-R Int : 196 ms QRS Dur : 116 ms QT Int : 402 ms P-R-T Axes : 47 -3 248 degrees QTcB Int : 384 ms Sinus bradycardia Incomplete left bundle branch block Minimal voltage criteria for LVH, may be normal variant ( Dowell product ) Nonspecific T wave abnormality Abnormal ECG No significant changes when compared with the previous EKG of sep 19 2023 Referred By: Kelly Betancourt Electronically Signed By: JACKELINE MARIANO
[2024-05-26] MEDS: Lactated Ringers 1,000 ML 50 ML IVCONT (10:02)
--- NOTE | 2024-05-26 10:50 | MHC.SHP ---
Pre-Procedural Eval Section A - 24 Hr Update-Section A only Date of Service: 05/26/24 Section B - Complete if H&P > 30 days Chief Complaint: Malignant neoplasm of unspecified site Details of Present Illness: Right breast mass, with the 8 o'clock position, invasive ductal carcinoma; underwent neoadjuvant chemotherapy because of the large tumor, now here for lumpectomy with the Hologic localizer and sentinel node biopsy; follow up imaging shows the lesion is no longer visualized suggesting very good response to neoadjuvant treatment Relevant Family History (Specify if Yes): No Relevant Social History: None Present Medications: see Short Stay Collaborative assessment Medical History: Significant History (Coronary artery disease hyperlipidemia GERD diabetes hypertension) History of Previous Operations: No relevant previous surgery Allergies: Allergies Allergy/AdvReac Type Severity Reaction Status Date / Time dulaglutide [From TRULICITY] Allergy Unknown DIARRHEA Verified 04/20/24 16:27 AND VOMITTING liraglutide [From VICTOZA] Allergy Unknown DIARRHEA Verified 04/20/24 16:27 AND VOMITTING, vomiting and diahrrea Review of Systems Sugical H&P ROS: Negative: Constitution, Cardiovascular and Respiratory Exam Surgical H&P Exam: Normal: Heart, Normal: Lungs and Normal: Abdomen Exam Comment: No palpable mass on the right breast Plan Diagnosis/Plan: Unchanged I have reviewed the history and physical and performed a pertinent physical examination on my patient. No changes have occurred unless specified. Time Spent With Patient Time: Total time managing care of this patient today ____ minutes.
--- NOTE | 2024-05-26 12:26 | W.PM.OPN ---
Operative Note Operative Note Date of Service: 05/26/24 Narrative: Preop diagnosis: Invasive ductal cancer, right breast, status post neoadjuvant chemotherapy Postop diagnosis: The same Procedure: Right breast lumpectomy with Hologic localizer, sentinel node biopsy Surgeon: Blas Shine MD paraprofessional education assistant: TAYO Lowe The patient is a 59 year old female diagnosed to have invasive ductal cancer and had previously undergone neoadjuvant chemotherapy to downsize a large tumor, now here for lumpectomy with Hologic localizer and sentinel biopsy. She understood the technique of the planned procedure as well as the risks, benefits, and alternatives She was brought to the operating room. She was placed supine with the right arm abducted to expose the axilla. She was under general anesthesia via laryngeal mask airway The right chest and the axilla were prepped and draped in the usual sterile fashion. A surgical time-out was done. The patient received cefazolin 2 g IV preoperatively She had earlier undergone scintigraphy for the axillary lymph node. I have reviewed the images and this showed 1 large sentinel lymph node in the axilla. Using the Hologic probe, I proceeded to localize the area of the RF ID clip. I infiltrated the area with lidocaine 1%. I made an incision on the skin laterally around the 8 o'clock position with a blade 15. This was carried down through the full-thickness of the skin and subcutaneous fat with electrocautery. I then used the Hologic probe periodically to guide our dissection. I used the curved Casarez scissors to dissect around the approximate location of the RF ID clip. I dissected circumferentially. The specimen was delivered We did immediate re-ray of the specimen and this confirmed that both the biopsy clip and the RF ID clip were within the specimen We observed for hemostasis. We controlled oozing areas with electrocautery and ligation We packed the excision site We then changed instruments set up as well as loves to proceed with the sentinel biopsy. I used the gamma probe and identified the area with the highest counts. I infiltrated this with lidocaine 1%. I made an incision in the skin with a blade 15. Tthis was carried down through the full-thickness of the skin subcutaneous fat. I then proceeded to enter the axillary fat pad by dividing the fascia. I periodically used the gamma probe to identify high counts in guide our dissection. We were able to visualize 1 large lymph node with a very high count on the gamma probe. I sharply dissected this was Metzenbaum scissors. I applied a right angle clamp at the remaining pedicle. I dissected this above the clamp and I tied the pedicle with the Polysorb 3-0 tie We proceeded to identify any other elevated counts. There was 1 area as well with an elevated count which we continued to dissect. We excised this lymph node in the same manner There were no other elevated counts in the background. [place] node 1 had a count of 2500. [place] node 2 had a count of 480. We then irrigated and closed the sentinel biopsy excision site with Polysorb 3-0 simple interrupted sutures. The skin incision was closed with Polysorb 4-0 subcuticular running stitch I went down to the pathology department and reviewed the lumpectomy specimen with the pathologist. The original lesion appeared to be within the specimen. The margins medially were seen to be close. I therefore proceeded to be scrubbed and excise more of the medial margins We then proceeded to observed for hemostasis. I cauterized oozing areas with electrocautery and ligation. Once hemostasis was confirmed, I proceeded to reapposed the deep breast tissue with Polysorb 3-0 simple interrupted sutures. Skin closure was achieved with Polysorb 4-0 subcuticular running stitch Both incisions were infiltrated with Marcaine 0.5% for postop analgesia Steri-Strips and dressings were applied. The procedure was completed The patient tolerated procedure well. There were no immediate complications. Initial and final counts of sponges and instruments were correct. Estimated blood loss was about 50 cc The patient was extubated without difficulty and transferred to the recovery room with stable vital signs. Breast [place] Node Biopsy Substrate(s) used for sentinel node biopsy in the non-neoadjuvant setting: N/A Substrate(s) used for sentinel node biopsy in the neoadjuvant setting: Radiotracer All colored nodes or non-colored nodes present at the end of a dye filled lymphatic channel were removed, if dye was used as the substrate for localization: N/A All significantly radioactive nodes were removed, if radionuclide was used as the substrate for localization: Yes All palpably suspicious nodes were removed, if present: N/A If clips were placed in pathology-involved nodes, those nodes were identified and removed: Yes Procedure performed with curative intent?: Yes General Surg. - Synoptic Notes Breast [place] Node Biopsy Substrate(s) used for sentinel node biopsy in the non-neoadjuvant setting: N/A Substrate(s) used for sentinel node biopsy in the neoadjuvant setting: Radiotracer All colored nodes or non-colored nodes present at the end of a dye filled lymphatic channel were removed, if dye was used as the substrate for localization: N/A All significantly radioactive nodes were removed, if radionuclide was used as the substrate for localization: Yes All palpably suspicious nodes were removed, if present: N/A If clips were placed in pathology-involved nodes, those nodes were identified and removed: Yes Procedure performed with curative intent?: Yes
== END 2024-05-26 14:42 | disposition home or self-care (01) ==
PROVIDERS: PCP Internal Medicine; Visit Provider Surgery
PROC: (CPT 19301; principal; 2024-05-26 11:00)
PROC: (CPT 19301; 2024-05-26 11:00)
DX: C50.511 Malignant neoplasm of lower-outer quadrant of right female breast (principal); Z17.0 Estrogen receptor positive status [ER+]; Z17.22 Progesterone receptor negative status; Z17.32 Human epidermal growth factor receptor 2 negative status; Z92.21 Personal history of antineoplastic chemotherapy; E11.22 Type 2 diabetes mellitus with diabetic chronic kidney disease; I12.9 Hypertensive chronic kidney disease with stage 1 through stage 4 chronic kidney disease, or unspecified chronic kidney disease; N18.30 Chronic kidney disease, stage 3 unspecified; E11.42 Type 2 diabetes mellitus with diabetic polyneuropathy; E11.65 Type 2 diabetes mellitus with hyperglycemia; I25.10 Atherosclerotic heart disease of native coronary artery without angina pectoris; Z95.5 Presence of coronary angioplasty implant and graft; Z95.1 Presence of aortocoronary bypass graft; E78.00 Pure hypercholesterolemia, unspecified; E55.9 Vitamin D deficiency, unspecified; E53.8 Deficiency of other specified B group vitamins; E04.1 Nontoxic single thyroid nodule; E89.0 Postprocedural hypothyroidism; Z86.19 Personal history of other infectious and parasitic diseases; Z79.4 Long term (current) use of insulin; Z79.84 Long term (current) use of oral hypoglycemic drugs; Z79.899 Other long term (current) drug therapy; Z88.8 Allergy status to other drugs, medicaments and biological substances; Z98.890 Other specified postprocedural states
CPT/HCPCS: 19301; 38525; 38900; 78195; 82947; 88307; 88341; 88342; 88360; 93005; A9520; J0690; J1171; J1642; J2003; J2371; J2405; J2704; J2795

== ENCOUNTER → 2024-05-26 07:30 | Outpatient (BNV) | payer OTHER, SELFPAY ==
[2024-02-14 16:50] VITALS: BP 100/66; BP 104/60; BP 132/58; BMI 31.3
== END ==
PROVIDERS: PCP Internal Medicine; Visit Provider Surgery
DX: C50.511 Malignant neoplasm of lower-outer quadrant of right female breast (principal)
CPT/HCPCS: 19301; 38525; 38900

== ENCOUNTER → 2024-05-26 08:30 | Outpatient (BNV) | payer OTHER, SELFPAY ==
[2024-02-14 16:50] VITALS: BP 100/66; BP 104/60; BP 132/58; BMI 31.3
== END ==
PROVIDERS: PCP Internal Medicine; Visit Provider Internal Medicine
DX: R94.31 Abnormal electrocardiogram [ECG] [EKG] (principal); I44.7 Left bundle-branch block, unspecified; R00.1 Bradycardia, unspecified
CPT/HCPCS: 93010

== ENCOUNTER → 2024-05-26 09:00 | Outpatient (BNV) | payer OTHER, SELFPAY ==
[2024-02-14 16:50] VITALS: BP 100/66; BP 104/60; BP 132/58; BMI 31.3
== END ==
PROVIDERS: PCP Internal Medicine; Visit Provider Radiology Diagnostic Radiology
DX: D48.61 Neoplasm of uncertain behavior of right breast (principal)
CPT/HCPCS: 78195

== ENCOUNTER 2024-06-08 10:53 | Outpatient (AMB) | payer OTHER, SELFPAY ==
[2024-02-14 16:50] VITALS: BP 100/66; BP 104/60; BP 132/58; BMI 31.3
[2024-06-08 11:01] VITALS: BP 130/64; PULSE 65; O2SAT 95; BMI 31.3
--- NOTE | 2024-06-08 11:01 | HO.NEPHOV ---
Vital Signs 06/08/24 11:01 Height 5 ft 2 in Weight 171 lb BMI 31.3 BP 130/64 Blood Pressure Location Lt brachial Position Sitting Pulse 65 Pulse Source Pulse Oximeter Pulse Oximetry (%) 95 Oxygen Delivery Method Room Air Intake Visit Reasons: CKD- Conf Drinking Water Technician Required: No Accompanied by: Self / Same As Patient Allergies dulaglutide [From TRULICITY] Allergy (Unknown, Verified 06/08/24 11:04) DIARRHEA AND VOMITTING liraglutide [From VICTOZA] Allergy (Unknown, Verified 06/08/24 11:04) DIARRHEA AND VOMITTING, vomiting and diahrrea Medication List - Last Reconciled 06/08/24 by Ritesh Soto MD acetone (urine) test (Ketone Urine Test strips) As directed if glucose running over 250, nausea or vomiting check urine for ketones. If + seek medical attention amlodipine 5 mg PO DAILY 90 days aspirin (Adult Aspirin Regimen) 81 mg PO DAILY blood pressure monitor (Blood Pressure Kit) As directed blood sugar diagnostic (FreeStyle Lite Strips) DIRECTED THREE TIMES A DAY blood-glucose meter,continuous ([employer] G6 [employer]) As directed blood-glucose sensor ([employer] G6 Sensor device) As directed every 10 days blood-glucose transmitter ([employer] G6 Transmitter device) As directed one every 3 months cholecalciferol (vitamin D3) (Vitamin D3) 50 mcg PO DAILY docusate sodium 100 mg PO BEDTIME empagliflozin (Jardiance) 10 mg PO DAILY ezetimibe (Zetia) 10 mg PO DAILY furosemide 40 mg PO DAILY 90 days gabapentin 100 mg PO BEDTIME PRN insulin aspart U-100 Up to 150 units via pump subcut daily; 30 days insulin syringe-needle U-100 (BD Insulin Syringe Ultra-Fine) As directed use 3 times day ketoconazole 2% 1 appl topical BID 2 weeks levothyroxine 125 mcg PO DAILY metoprolol tartrate 25 mg PO BID 90 days oxycodone-acetaminophen 5-325 mg (Percocet) 1 tab PO Q4-6H PRN pantoprazole 40 mg PO DAILY PRN pen needle, diabetic (Comfort EZ Pen [place]) As directed polyethylene glycol 3350 (Miralax) 17 grams PO DAILY PRN potassium chloride ER 1 tab PO DAILY pyridoxine (vitamin B6) 100 mg PO DAILY 90 days rosuvastatin 40 mg PO BEDTIME sennosides (senna) 8.6 mg PO BEDTIME HPI Comments Details: Middle aged woman with long standing DM and HTN and kidney stones with CKD Here for follow up 09/26/23 Last week , her insulin pump stopped working Blood sugar shot up to 645 She was unwell. Went to ER Creatinine was 1.8 ( new bump) Treated with IVF , Blood sugar was controlled to 260 and discharged home No repeat creatinine levels thus far. Admits to drinking 6- 10 bottles of water - includes anna bigg, pepsi and sprite 06/08/24 Invasive ductal cancer, right breast, status post neoadjuvant chemotherapy Procedure: Right breast lumpectomy with Hologic localizer, sentinel node biopsy - on 05/26/24 c/o swelling of legs [facility] Medical History History of MRSA infection Port-A-Cath in place Hypokalemia Thyroid disease Insulin pump in place Numbness Cough SOB (shortness of breath) On beta suzanne at home CHF (congestive heart failure) History of chemotherapy Neuropathy Myocardial infarction Breast cancer (~09/2023) Preoperative cardiovascular examination Invasive ductal carcinoma of breast Breast cancer, right Breast mass, right Abnormal finding on mammography Abnormal echocardiogram Abnormal stress ECG with treadmill Hearing deficit CKD (chronic kidney disease) stage 3, GFR 30-59 ml/min Low back pain Bacterial conjunctivitis of both eyes Urine incontinence Well woman exam Pyelonephritis Left navicular fracture of foot Vitamin B12 deficiency Thyroid nodule History of Clostridium difficile infection Coronary artery disease Hypercholesterolemia Depression Kidney stone Carpal tunnel syndrome Arthritis 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 Vitamin D deficiency Essential hypertension Type 2 diabetes mellitus with hyperglycemia Surgical History (Updated 06/08/24 @ 11:03 by DERICK Baumann) History of lumpectomy (~05/2024) History of coronary artery stent placement History of biopsy Hx of colonoscopy S/P triple vessel bypass Hx of toe surgery Hx of thyroidectomy History of renal stent Hx of section Hx of myomectomy Hx of tonsillectomy Family History Father DM (diabetes mellitus) Hypertension High cholesterol Spina bifida Kidney stone CAD (coronary artery disease) Mother DM (diabetes mellitus) Hypertension High cholesterol CAD (coronary artery disease) Bipolar 1 disorder Maternal Aunt Lung cancer Maternal Grandfather Lung cancer Other Mental health disorder Social History Household Members: Children Household Members Other:: daughter Housing: Apartment Are you a primary critical care paramedic to a significant other at home: No Do you presently have visiting nurse or other home services: No Alcohol intake: never Patient Tobacco Use Status: Never used Tobacco e-Cigarette/Vaping Use: Never Used Second Hand Smoke Exposure: No service: No Current occupational status: employed Cognitive needs: No Hearing needs: No Vision needs: Yes Female Reproductive History Menstrual Age of Menarche: 11 Physical Exam Vital Signs: Last Vital Signs Pulse 65 06/08/24 11:01 BP 130/64 06/08/24 11:01 Pulse Ox 95 06/08/24 11:01 Oxygen Delivery Method Room Air 06/08/24 11:01 BMI result Body Mass Index 31.3 Extrem General: No pedal edema Results Reviewed Nephrology Results: Hgb 11.3 g/dl (12.0-16.0) L 06/01/24 WBC 7.7 X10*3/uL (4.8-10.8) 06/01/24 Plt Count 296 X10*3/uL (160-400) 06/01/24 Sodium 142 mmol/L (135-145) 06/06/24 Potassium 3.5 mmol/L (3.3-5.1) 06/06/24 Chloride 107 mmol/L (96-108) 06/06/24 Carbon Dioxide 30 mmol/L (22-29) H 06/06/24 BUN 17 mg/dL (9-16) H 06/06/24 Creatinine 0.99 mg/dL (0.5-1.4) 06/06/24 Calcium 9.2 mg/dL (8.4-10.2) 06/06/24 Urine Protein Negative mg/dL (Neg-Trace) 06/06/24 Assessment & Plan Assessment & Plan (1) CKD (chronic kidney disease) stage 3, GFR 30-59 ml/min: Code(s): N18.30 - Chronic kidney disease, stage 3 unspecified Category: Medical (2) Renal calculus, bilateral: Code(s): N20.0 - Calculus of kidney Category: Medical Plan Darius in a setting of hyperglycemia CKD - Most likely has diabetic kidney disease Fluctuation in creatinine due to hemodynamics Encouraged low salt diet Avoid nephrotoxins including NSAIDS Maintain A1C < 7% Concur with current medical management including Jardiance Nephrolithiasis 24 hr urine studies reviewed Encouraged to main a urine output of > 2L per 24 hrs Avoid pepsi OK to drink lemonade Leg edema Appears in the evening Most likely due to AMlodipie Switch Amlodipine to q PM instead of q AM Orders: Orders Electrolytes 4 Months N20.0 - Calculus of kidney Blood Urea Nitrogen 4 Months N20.0 - Calculus of kidney Creatinine 4 Months N20.0 - Calculus of kidney Coding Level of Care Code Est Pt Level 4 (28857) Diagnoses CKD (chronic kidney disease) stage 3, GFR 30-59 ml/min N18.30 Renal calculus, bilateral N20.0
== END 2024-06-08 11:15 | disposition home or self-care (01) ==
PROVIDERS: PCP Internal Medicine; Visit Provider Internal Medicine Hypertension Specialist
DX: N18.30 Chronic kidney disease, stage 3 unspecified (principal); N20.0 Calculus of kidney
CPT/HCPCS: 99214

== ENCOUNTER → 2024-06-08 10:53 | Outpatient (BNVA) | payer OTHER, SELFPAY ==
[2024-02-14 16:50] VITALS: BP 100/66; BP 104/60; BP 132/58; BMI 31.3
== END ==
PROVIDERS: PCP Internal Medicine; Visit Provider Internal Medicine Hypertension Specialist
DX: E11.22 Type 2 diabetes mellitus with diabetic chronic kidney disease (principal); I12.9 Hypertensive chronic kidney disease with stage 1 through stage 4 chronic kidney disease, or unspecified chronic kidney disease; N18.30 Chronic kidney disease, stage 3 unspecified; N20.0 Calculus of kidney
CPT/HCPCS: 99212

== ENCOUNTER 2024-06-11 10:57 | Outpatient (REF) | payer OTHER, SELFPAY ==
[2024-06-08 11:23] VITALS: BP 100/66; BP 104/60; BP 132/58; BMI 31.3
--- NOTE | ~2024-06-11 | XR_ITS ---
EXAMINATION: XR ABDOMEN 1 VIEW (KUB) HISTORY: N20.0 - Calculus of kidney COMPARISON: Comparison is made with the prior examination dated 11/21/2022. FINDINGS: Two supine views of the abdomen are submitted. The bowel gas pattern is unremarkable, without evidence of mechanical obstruction. There is a large amount of stool throughout the colon. There is a 3 mm rounded calcification in the right upper quadrant which may be related to the colon or right kidney. There is a radiopaque tablet noted at the GE junction. There is a calcification in the right hemipelvis which may be vascular in nature. There are no abnormal soft tissue masses. The bones are intact. XR/XR KUB IMPRESSION: 3 mm rounded calcification in the right upper quadrant which may be related to the colon or right kidney. Probable vascular calcification in the right hemipelvis. Electronically signed by: Suleiman El MD 06/12/2024 11:50 AM EST
--- NOTE | ~2024-06-11 | MM_ITS ---
EXAMINATION: DXA BONE DENSITY AXIAL HISTORY: Estrogen deficiency TECHNIQUE: [employer] Dual energy absorptiometry (DEXA) of the lumbar spine, total left hip, and femoral neck was performed. COMPARISON: There are no prior studies for comparison. FINDINGS: The bone mineral density of the lumbar spine is 0.995 with a T-score of -1.5, and a Z-score of -0.7. The bone mineral density of the left total hip is 0.755 with a T-score of -2.0, and a Z-score of -1.4. The bone mineral density of the left femoral neck is 0.643 with a T-score of -2.8, and a Z-score of -1.8. FRACTURE RISK: The FRAX index suggests a risk of major osteoporotic fracture of 9.5%, and of hip fracture 2.4%. MM/XR DEXA axial skeleton IMPRESSION: Based on bone mineral density, and according to World Health Organization (WHO) criteria, the diagnosis is consistent with osteoporosis. All bone density values are in grams per centimeter squared (g/cm2). Statistically, 68% of repeat scans fall within 1 SD (+/- 0.010 g/cm2 for AP spine L1-L4) and 1 SD (+/- 0.012 g/cm2 for femur total) FRAX is a trademark of the [employer] Metabolic Bone Disease, a World Health Organization (WHO) Collaborating Center. Electronically signed by: Suleiman El MD 06/11/2024 02:35 PM [facility]
== END 2024-06-11 10:58 | disposition home or self-care (01) ==
LOC: HO.MAMMO 10:57
PROVIDERS: PCP Internal Medicine; Referring Provider Nurse Practitioner Family; Visit Provider Internal Medicine Medical Oncology
DX: M85.80 Other specified disorders of bone density and structure, unspecified site (principal); N20.0 Calculus of kidney; C50.911 Malignant neoplasm of unspecified site of right female breast; Z98.890 Other specified postprocedural states; Z79.899 Other long term (current) drug therapy
CPT/HCPCS: 74018; 77080; 99212

== ENCOUNTER → 2024-06-11 11:30 | Outpatient (BNV) | payer OTHER, SELFPAY ==
[2024-06-08 11:23] VITALS: BP 100/66; BP 104/60; BP 132/58; BMI 31.3
== END ==
PROVIDERS: PCP Internal Medicine; Referring Provider Nurse Practitioner Family; Visit Provider Radiology Diagnostic Radiology
DX: R19.31 Right upper quadrant abdominal rigidity (principal)
CPT/HCPCS: 74018

== ENCOUNTER 2024-06-11 12:31 | Outpatient (AMB) | payer OTHER, SELFPAY ==
[2024-06-08 11:23] VITALS: BP 100/66; BP 104/60; BP 132/58; BMI 31.3
--- NOTE | 2024-06-11 12:35 | MHC.OFFVIS ---
Vital Signs 06/11/24 12:42 Height 5 ft 2 in Weight 167 lb 8.821 oz BMI 30.6 Intake Visit Reasons: S/P RT brst lumpectomy w/seed & SN bx Intake Note: This patient presents for post-op assessment status post right breast lumpectomy, SN bx. Pt c/o; no concerns. Dice Dealer Required: No Accompanied by: Family/Other Allergies dulaglutide [From TRULICITY] Allergy (Unknown, Verified 06/16/24 14:31) DIARRHEA AND VOMITTING liraglutide [From VICTOZA] Allergy (Unknown, Verified 06/16/24 14:31) DIARRHEA AND VOMITTING, vomiting and diahrrea Medication List - Last Reconciled 06/11/24 by Blas Shine MD acetone (urine) test (Ketone Urine Test strips) As directed if glucose running over 250, nausea or vomiting check urine for ketones. If + seek medical attention amlodipine 5 mg PO DAILY 90 days aspirin (Adult Aspirin Regimen) 81 mg PO DAILY blood pressure monitor (Blood Pressure Kit) As directed blood sugar diagnostic (FreeStyle Lite Strips) DIRECTED THREE TIMES A DAY blood-glucose meter,continuous (DexWallCompass G6 Remote Sensing Program Manager) As directed blood-glucose sensor (Dexcom G6 Sensor device) As directed every 10 days blood-glucose transmitter (Dexcom G6 Transmitter device) As directed one every 3 months cholecalciferol (vitamin D3) (Vitamin D3) 50 mcg PO DAILY docusate sodium 100 mg PO BEDTIME empagliflozin (Jardiance) 10 mg PO DAILY ezetimibe (Zetia) 10 mg PO DAILY furosemide 40 mg PO DAILY 90 days gabapentin 100 mg PO BEDTIME PRN insulin aspart U-100 Up to 150 units via pump subcut daily; 30 days insulin syringe-needle U-100 (BD Insulin Syringe Ultra-Fine) As directed use 3 times day ketoconazole 2% 1 appl topical BID 2 weeks levothyroxine 125 mcg PO DAILY metoprolol tartrate 25 mg PO BID 90 days oxycodone-acetaminophen 5-325 mg (Percocet) 1 tab PO Q4-6H PRN pantoprazole 40 mg PO DAILY PRN pen needle, diabetic (Comfort EZ Pen [place]) As directed polyethylene glycol 3350 (Miralax) 17 grams PO DAILY PRN potassium chloride ER 1 tab PO DAILY pyridoxine (vitamin B6) 100 mg PO DAILY 90 days rosuvastatin 40 mg PO BEDTIME sennosides (senna) 8.6 mg PO BEDTIME HPI HPI S/P RT brst lumpectomy w/seed & SN bx: Details: 59F with known invasive ductal carcinoma here for a ffup. She had undergone lumpectony with Hologic localizer of the right breast, with sentinel node biopsy last May 26, 2024. She tolerated the procedure well and currently feels well. She did have neoaduvant chemotherapy in view of the size of the initial tumor. She denies complaints at this time. [facility] Medical History History of MRSA infection Port-A-Cath in place Hypokalemia Thyroid disease Insulin pump in place Numbness Cough SOB (shortness of breath) On beta suzanne at home CHF (congestive heart failure) History of chemotherapy Neuropathy Myocardial infarction Breast cancer (~09/2023) Preoperative cardiovascular examination Invasive ductal carcinoma of breast Breast cancer, right Breast mass, right Abnormal finding on mammography Abnormal echocardiogram Abnormal stress ECG with treadmill Hearing deficit CKD (chronic kidney disease) stage 3, GFR 30-59 ml/min Low back pain Bacterial conjunctivitis of both eyes Urine incontinence Well woman exam Pyelonephritis Left navicular fracture of foot Vitamin B12 deficiency Thyroid nodule History of Clostridium difficile infection Coronary artery disease Hypercholesterolemia Depression Kidney stone Carpal tunnel syndrome Arthritis 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 Vitamin D deficiency Essential hypertension Type 2 diabetes mellitus with hyperglycemia Surgical History History of lumpectomy (~05/2024) History of coronary artery stent placement History of biopsy Hx of colonoscopy S/P triple vessel bypass Hx of toe surgery Hx of thyroidectomy History of renal stent Hx of section Hx of myomectomy Hx of tonsillectomy Family History Father DM (diabetes mellitus) Hypertension High cholesterol Spina bifida Kidney stone CAD (coronary artery disease) Mother DM (diabetes mellitus) Hypertension High cholesterol CAD (coronary artery disease) Bipolar 1 disorder Maternal Aunt Lung cancer Maternal Grandfather Lung cancer Other Mental health disorder Social History Household Members: Children Household Members Other:: daughter Housing: Apartment Are you a primary managed care nurse to a significant other at home: No Do you presently have visiting nurse or other home services: No Alcohol intake: never Patient Tobacco Use Status: Never used Tobacco e-Cigarette/Vaping Use: Never Used Second Hand Smoke Exposure: No service: No Current occupational status: employed Cognitive needs: No Hearing needs: No Vision needs: Yes Female Reproductive History Menstrual Age of Menarche: 11 Review of Systems Const Denies chills and Denies fever(s) Card Denies chest pain, Denies dyspnea and Denies dyspnea on exertion Resp Denies cough, Denies dyspnea and Denies dyspnea on exertion GI Denies hematochezia and Denies change in bowel habits Denies hematuria Musc Denies back pain and Denies limited range of motion Neuro Denies focal weakness and Denies convulsions Psych Denies depression and Denies mood swings Physical Exam Vital Signs: BMI result Body Mass Index 30.6 Const General: comfortable and no acute distress Orientation/consciousness: patient oriented x3 Neck Neck: Yes no lymphadenopathy Chest Other: right breast lumpectomy and sentinel node biopsy sites are both wellhealed, not infected, no hematoma Resp Auscultation: clear to auscultation bilaterally Cardio Rhythm: regular rhythm GI Palpation (GI): Soft to palpation, nontender and no guarding Neuro General: patient oriented x3 Assessment & Plan Assessment & Plan (1) Invasive ductal carcinoma of breast: Comment: October 2023 right breast Code(s): C50.919 - Malignant neoplasm of unspecified site of unspecified female breast Category: Medical Plan: She is status post lumpectomy, with the Hologic localizer, sentinel biopsy. Her path report confirms the presence of invasive ductal carcinoma. Her sentinel nodes are negative. However, there is note of ductal carcinoma in Situ abutting tissue edge with focal inked on the new medial margin. In view of this, I told her the option of proceeding with wider excision. I also explained to her the option of full mastectomy. I explained the technique of each procedure. I reviewed the risks, benefits, and alternatives She does state that she now wants to proceed with full mastectomy. She says that she does not want taking the risk of additional positive margins down the line. I explained the technique of total mastectomy. I reviewed the risks including but not limited to bleeding, infections, hematoma formation, blood clots, pneumonia, as well as the benefits and alternatives. I reviewed with her what to expect postoperatively She wants to proceed with total mastectomy. Her family was with her during the visit. Coding Level of Care Code Est Pt Level 3 (75947) Diagnoses Invasive ductal carcinoma of breast C50.919
[2024-06-11 12:42] VITALS: BMI 30.6
== END 2024-06-11 13:35 | disposition home or self-care (01) ==
PROVIDERS: PCP Internal Medicine; Visit Provider Surgery
DX: C50.919 Malignant neoplasm of unspecified site of unspecified female breast (principal)
CPT/HCPCS: 99024

== ENCOUNTER → 2024-06-16 14:29 | Outpatient (BNVA) | payer OTHER, SELFPAY ==
[2024-06-08 11:23] VITALS: BP 100/66; BP 104/60; BP 132/58; BMI 31.3
== END ==
PROVIDERS: PCP Internal Medicine; Visit Provider Nurse Practitioner Adult Health
DX: E11.65 Type 2 diabetes mellitus with hyperglycemia (principal); E89.0 Postprocedural hypothyroidism; Z79.4 Long term (current) use of insulin; Z96.41 Presence of insulin pump (external) (internal)
CPT/HCPCS: 82947; 99212

== ENCOUNTER 2024-06-22 14:27 | Outpatient (AMB) | payer OTHER, SELFPAY ==
[2024-06-08 11:23] VITALS: BP 100/66; BP 104/60; BP 132/58; BMI 31.3
--- NOTE | 2024-06-22 14:44 | MHC.OFFVIS ---
Vital Signs 06/22/24 14:45 Height 5 ft 2 in Weight 167 lb 8.821 oz BMI 30.6 BP 106/60 Blood Pressure Location Lt brachial Position Sitting Pulse 70 Pulse Source Pulse Oximeter Intake Visit Reasons: 6m follow up Allergies dulaglutide [From TRULICITY] Allergy (Unknown, Verified 06/16/24 14:31) DIARRHEA AND VOMITTING liraglutide [From VICTOZA] Allergy (Unknown, Verified 06/16/24 14:31) DIARRHEA AND VOMITTING, vomiting and diahrrea Medication List - Last Reconciled 06/22/24 by Chuckie New MD acetone (urine) test (Ketone Urine Test strips) As directed if glucose running over 250, nausea or vomiting check urine for ketones. If + seek medical attention amlodipine 5 mg PO DAILY 90 days aspirin (Adult Aspirin Regimen) 81 mg PO DAILY blood pressure monitor (Blood Pressure Kit) As directed blood sugar diagnostic (FreeStyle Lite Strips) DIRECTED THREE TIMES A DAY blood-glucose meter,continuous (Cotopaxi G6 Rotary Bar Operator) As directed blood-glucose sensor (Cotopaxi G6 Sensor device) As directed every 10 days blood-glucose transmitter (Cotopaxi G6 Transmitter device) As directed one every 3 months cholecalciferol (vitamin D3) (Vitamin D3) 50 mcg PO DAILY docusate sodium 100 mg PO BEDTIME empagliflozin (Jardiance) 10 mg PO DAILY ezetimibe (Zetia) 10 mg PO DAILY furosemide 40 mg PO DAILY 90 days gabapentin 100 mg PO BEDTIME PRN insulin aspart U-100 Up to 150 units via pump subcut daily; 30 days insulin syringe-needle U-100 (BD Insulin Syringe Ultra-Fine) As directed use 3 times day ketoconazole 2% 1 appl topical BID 2 weeks levothyroxine 125 mcg PO DAILY metoprolol tartrate 25 mg PO BID 90 days oxycodone-acetaminophen 5-325 mg (Percocet) 1 tab PO Q4-6H PRN pantoprazole 40 mg PO DAILY PRN pen needle, diabetic (Comfort EZ Pen [place]) As directed polyethylene glycol 3350 (Miralax) 17 grams PO DAILY PRN potassium chloride ER 1 tab PO DAILY pyridoxine (vitamin B6) 100 mg PO DAILY 90 days rosuvastatin 40 mg PO BEDTIME sennosides (senna) 8.6 mg PO BEDTIME HPI Comments Details: Mayela returns for follow-up regarding coronary artery disease. To recall, she underwent drug-eluting stent to the mid LAD from 2014. In 2021, she underwent stress testing for follow-up of coronary disease and that was quite abnormal leading to cardiac catheterization followed by coronary artery bypass surgery. From cardiac, she has got no new concerns. However, has been diagnosed with breast cancer and needs to go for mastectomy. Recently had lumpectomy. [facility] Medical History History of MRSA infection Port-A-Cath in place Hypokalemia Thyroid disease Insulin pump in place Numbness Cough SOB (shortness of breath) On beta suzanne at home CHF (congestive heart failure) History of chemotherapy Neuropathy Myocardial infarction Breast cancer (~09/2023) Preoperative cardiovascular examination Invasive ductal carcinoma of breast Breast cancer, right Breast mass, right Abnormal finding on mammography Abnormal echocardiogram Abnormal stress ECG with treadmill Hearing deficit CKD (chronic kidney disease) stage 3, GFR 30-59 ml/min Low back pain Bacterial conjunctivitis of both eyes Urine incontinence Well woman exam Pyelonephritis Left navicular fracture of foot Vitamin B12 deficiency Thyroid nodule History of Clostridium difficile infection Coronary artery disease Hypercholesterolemia Depression Kidney stone Carpal tunnel syndrome Arthritis 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 Vitamin D deficiency Essential hypertension Type 2 diabetes mellitus with hyperglycemia Surgical History History of lumpectomy (~05/2024) History of coronary artery stent placement History of biopsy Hx of colonoscopy S/P triple vessel bypass Hx of toe surgery Hx of thyroidectomy History of renal stent Hx of section Hx of myomectomy Hx of tonsillectomy Family History Father DM (diabetes mellitus) Hypertension High cholesterol Spina bifida Kidney stone CAD (coronary artery disease) Mother DM (diabetes mellitus) Hypertension High cholesterol CAD (coronary artery disease) Bipolar 1 disorder Maternal Aunt Lung cancer Maternal Grandfather Lung cancer Other Mental health disorder Social History Household Members: Children Household Members Other:: daughter Housing: Apartment Are you a primary live in caregiver to a significant other at home: No Do you presently have visiting nurse or other home services: No Alcohol intake: never Patient Tobacco Use Status: Never used Tobacco e-Cigarette/Vaping Use: Never Used Second Hand Smoke Exposure: No service: No Current occupational status: employed Cognitive needs: No Hearing needs: No Vision needs: Yes Female Reproductive History Menstrual Age of Menarche: 11 Review of Systems Const Denies weakness ENT Denies dizziness Card Denies chest pain, Denies chest pain with activity, Denies syncope, Denies rapid heart rate, Denies pedal edema, Denies edema, Denies leg edema, Denies lightheadedness, Denies palpitations, Denies dyspnea, Denies dyspnea on exertion and Denies orthopnea Resp Denies cough, Denies dyspnea and Denies dyspnea on exertion GI Denies hematochezia and Denies change in stool character Musc Denies abnormal gait, Denies muscle cramps, Denies muscle weakness, Denies numbness, Denies radiating pain into limb and Denies tingling Neuro Denies abnormal gait, Denies dizziness, Denies syncope, Denies numbness, Denies tingling and Denies weakness Endo Denies palpitations Physical Exam Vital Signs: Last Vital Signs Pulse 70 06/22/24 14:45 BP 106/60 06/22/24 14:45 BMI result Body Mass Index 30.6 Const General: comfortable and no acute distress Orientation/consciousness: patient oriented x3 HEENT Other: Unremarkable Head: Yes normal to inspection Neck Neck: Yes normal visual inspection Chest Chest palpation & inspection: normal inspection of the chest Resp Auscultation: clear to auscultation bilaterally Cardio Palpation: normal PMI Heart sounds: S1 normal heart sound present, S2 normal heart sound present, no gallops, no murmurs and no rubs GI Palpation (GI): Soft to palpation Back/Spine/Pelvis Other: unremarkable Skin General skin exam: no rashes or lesions noted Neuro General: patient oriented x3 Extrem General: Yes normal to inspection Psych Mental Status: mental status grossly normal Assessment & Plan Assessment & Plan (1) Atherosclerotic cardiovascular disease: Code(s): I25.10 - Atherosclerotic heart disease of [place] coronary artery without angina pectoris Category: Medical Plan: Status post CABG and stable. Continue low-dose aspirin. Also on beta-blockers, statins, Zetia. Last LDL 65 mg/dL. (2) Ischemic cardiomyopathy: Code(s): I25.5 - Ischemic cardiomyopathy Category: Medical Plan: In the most recent echocardiogram, LVEF 45-50%. Wall motion abnormalities related to underlying coronary disease. She has got no heart failure symptoms or signs. She was on valsartan but that was stopped after bypass surgery due to low blood pressure. (3) Type 2 diabetes mellitus with hyperglycemia: Code(s): E11.65 - Type 2 diabetes mellitus with hyperglycemia Category: Medical Qualifiers: Diabetes mellitus long-term insulin use: without long-term use Qualified Code(s): E11.65 - Type 2 diabetes mellitus with hyperglycemia Plan: Hemoglobin A1c is seems quite high at 8.8%. On insulin, Jardiance. (4) Essential hypertension: Code(s): I10 - Essential (primary) hypertension Category: Medical Plan: On Amlodipine. Has been on valsartan/hydrochlorothiazide, but stopped in the past due to low blood pressure. She is complaining of some leg swelling off and on. Not clear if it is amlodipine related or dependent edema. If necessary, we can switch over from amlodipine to valsartan but there is also history of elevated creatinine in the past. 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
[2024-06-22 14:45] VITALS: BP 106/60; PULSE 70; BMI 30.6
--- OUTSIDE RECORDS SUMMARY | 2024-06-22 16:06 | XMS_ITS | Clinical Summary ---
Author Organization [facility] Address [address] [facility] [place] [address] Phone Care Team Providers Care Enrolled Nurse Name Role Phone Dany Rubio MD Primary Care Provider [phone] Allergies Active Allergy Reactions Criticality Noted Date Comments Dulaglutide 12/23/2020 Liraglutide 12/23/2020 Medications aspirin (ST HANY) 81 MG EC tablet Take 1 tablet by mouth 1 (one) time each day Active ezetimibe (ZETIA) 10 MG tablet Take 1 tablet by mouth 1 (one) time each day Active metFORMIN (FORTAMET) 1000 MG 24 hr tablet Take 1 tablet by mouth 2 (two) times a day Active metoprolol succinate XL (TOPROL XL) 25 MG 24 hr tablet Take 50 mg by mouth 1 (one) time each day Active Cholecalciferol (Vitamin D3) 125 MCG (5000 UT) capsule Take 1 tablet by mouth 1 (one) time each day 11/24/2020 Active NovoLOG 100 UNIT/ML injection INJECT UP TO 150 UNITS VIA PUMP SUBCUT DAILY 11/21/2020 Active levothyroxine (SYNTHROID, LEVOTHROID) 125 MCG tablet Take 125 mcg by mouth 1 (one) time each day 11/28/2020 Active rosuvastatin (CRESTOR) 40 MG tablet 12/20/2020 Active cyanocobalamin (VITAMIN B-12) 100 MCG tablet Take 50 mcg by mouth 1 (one) time each day Active acetaminophen (TYLENOL) 325 MG tablet 02/15/2021 Active oxybutynin XL (DITROPAN-XL) 15 MG 24 hr tablet 04/04/2021 Act ivonne pyridoxine (VITAMIN B-6) 100 MG tablet 04/06/2021 Activ e clopidogrel (PLAVIX) 75 MG tablet Take 75 mg by mouth 1 (one) time each day 01/19/2022 Active Docusate Sodium (DSS) 100 MG capsule Take 100 mg by mouth 1 (one) time each day 01/09/2022 Active furosemide (LASIX) 40 MG tablet Take 40 mg by mouth 1 (one) time each day 01/19/2022 Active pantoprazole (PROTONIX) 40 MG EC tablet Take 40 mg by mouth 01/19/2022 Active senna (SENOKOT) 8.6 MG tablet Take 1 tablet by mouth 1 (one) time each day 01/09/2022 Active Active Problems Problem Noted Date Diagnosed Date Essential hypertension 12/08/2020 Mixed hyperlipidemia 12/08/2020 Renal disorder due to type 2 diabetes mellitus 0 12/08/2020 Renal stone 12/08/2020 Microalbuminuria 05/04/2011 Type 2 diabetes mellitus 09/05/2005 Family History Medical History Relation Comments Cancer Father Diabetes Father Hypertension Father Diabetes Mother Hypertension Mother Hypertension Sibling 1 Heart disease Sibling 2 Relation Status Comments Father Alive Mother Sibling 1 Sibling 2 Social History Tobacco Use Types Packs/Day Years Used Date Smoking Tobacco: Never Smokeless Tobacco: Never Tobacco Cessation:Counseling Given: Not Answered Alcohol Use Standard Drinks/Week Comments No 0 (1 standard drink = 0.6 oz pur e alcohol) Comments Unknown Sex and Gender Information Value Date Recorded Sex Assigned at Not on file Legal Sex Female 5:12 PM EST Gender Identity Not on file Sexual Orientation Not on file Last Filed Vital Signs Vital Sign Reading Time Taken Comments Blood Pressure 132/68 06/25/2022 3:52 PM EST Pulse 67 06/25/2022 3:52 PM EST Temperature - - Respiratory Rate - - Oxygen Saturation 98% 06/25/2022 3:52 PM EST Inhaled Oxygen Concentration - - Weight 76.7 kg (169 lb) 06/25/2022 3:52 PM EST Height 157.5 cm (5' 2 ) 06/25/2022 3:52 PM EST Body Mass Index 30.91 06/25/2022 3:52 PM EST Plan of Treatment Health Maintenance Due Date Last Done Comments Breast Cancer Screening 1965 Pneumococcal Vaccine: Pediatrics (0 to 5 Years) and At-Risk Patients (6 to 64 Years) (1 of 2 - PCV) 1970 Colorectal Cancer Screening: Annual FOBT 2013 Colorectal Cancer Screening: Colonoscopy 2013 Colorectal Cancer Screening: Sigmoidoscopy 2013 Diabetes: Hemoglobin A1C 06/20/2020 020, 06/08/2019 Diabetes: Ophthalmology Exam 06/20/2020 Diabetes: Pedal Pulse Checked 06/20/2020 Diabetes: Sensory Foot Exam 06/20/2020 Diabetes: Visual Foot Exam 06/20/2020 Influenza Vaccine (#1) 2024 Hepatitis B Vaccine Aged Out No longe r eligible based on patient's age to complete this topic Procedures Procedure Name Priority Date/Time Associated Diagnosis Comments BLOOD PANEL (HC) Routine 03/14/2020 12:0 0 AM EDT from Last 3 Months or Most Recently Relevant to Health Maintenance Results * (ABNORMAL) Blood Panel (03/14/2020 12:00 AM EDT) BUN 19 9 - 20 mg/dl [facility] Hemoglobin A1C 9.9(H) <5 % [facility] Sodium 140 137 - 145 mmol/L [facility] Hematocrit 39.1 38 - 50 % [facility] Potassium 4.3 3.5 - 5.1 mmol/L [facility] Creatinine 0.84 0.70 - 1.30 mg/dl [facility] Calcium 9.3 8.4 - 10.2 mg/dl [facility] Cholesterol 196 <200 mg/dl [facility] Triglycerides 127 <150 mg/dl [facility] Hgb 12.5(L) 13.0 - 16.5 g/dl [facility] 03/14/2020 us Rtama Conversion LAB [id number] LICITED RESULTS Final Result [facility] from Last 3 Months or Most Recently Relevant to Health Maintenance Care Teams Enrolled Nurse Relationship Specialty Start Date End Date Dany Rubio MD [facility] [address] [place] PCP - General 05/30/20
== END 2024-06-22 15:07 | disposition home or self-care (01) ==
PROVIDERS: PCP Internal Medicine; Visit Provider Internal Medicine
DX: I25.10 Atherosclerotic heart disease of native coronary artery without angina pectoris (principal); I25.5 Ischemic cardiomyopathy; E11.65 Type 2 diabetes mellitus with hyperglycemia; I10 Essential (primary) hypertension
CPT/HCPCS: 99214

== ENCOUNTER → 2024-06-22 14:27 | Outpatient (BNVA) | payer OTHER, SELFPAY ==
[2024-06-08 11:23] VITALS: BP 100/66; BP 104/60; BP 132/58; BMI 31.3
== END ==
PROVIDERS: PCP Internal Medicine; Visit Provider Internal Medicine
DX: I25.10 Atherosclerotic heart disease of native coronary artery without angina pectoris (principal); I25.5 Ischemic cardiomyopathy; I10 Essential (primary) hypertension; E11.65 Type 2 diabetes mellitus with hyperglycemia; Z79.4 Long term (current) use of insulin
CPT/HCPCS: 99212

== ENCOUNTER → 2024-07-07 08:56 | Outpatient (BNV) | payer OTHER, SELFPAY ==
[2024-06-08 11:23] VITALS: BP 100/66; BP 104/60; BP 132/58; BMI 31.3
== END ==
PROVIDERS: PCP Internal Medicine; Visit Provider Surgery
DX: Z90.11 Acquired absence of right breast and nipple (principal)
CPT/HCPCS: 19303; 99024; 99499; G0180

== ENCOUNTER 2024-07-07 09:14 | Inpatient (IN) | payer OTHER, SELFPAY ==
[2024-06-08 11:23] VITALS: BP 100/66; BP 104/60; BP 132/58; BMI 31.3
[2024-07-02 08:43] VITALS: BMI 30.5
--- NOTE | 2024-07-03 11:48 | HO.ANESPROP2 ---
Documented by User: Priscilla Krishna NP 07/03/24 11:54 HPI - Anesthesia Eval Consult details Narrative: 59yo F for Right Mastectomy Simple s/p lumpectomy 05/2024 with GA-LMA 4 (Anesthesia unavailable for PAT 05/18/24. +1 edema per PAT RN assess) Port a cath in situ Insulin pump Chemo, last cycle 04/27/24 Follows [facility] [place] Cardiology for CAD s/p CABG 2021 - stable at 12/2023 and optimized for surgery [facility] Active Problems Active Problems: All Active Problems UTI (urinary tract infection) (Acute) Dysuria (Acute) Ischemic cardiomyopathy (Acute) Peripheral vascular disease (Acute) Recurrent UTI (Acute) Renal calculus, bilateral (Acute) UTI (urinary tract infection) (Acute) Well woman exam (Acute) Constipation (Acute) Tubular adenoma of colon (Acute) Tinea pedis (Acute) GERD (gastroesophageal reflux disease) (Acute) Hypersomnia (Acute) Annual physical exam (Acute) UTI (urinary tract infection) (Acute) COVID-19 virus infection (Acute) UTI (urinary tract infection) (Acute) Invasive ductal carcinoma of breast (Acute) CKD (chronic kidney disease) stage 3, GFR 30-59 ml/min (Acute) Kidney stone (Acute) Coronary artery disease (Acute) Hypercholesterolemia (Acute) Type 2 diabetes mellitus with hyperglycemia (Acute) Type 2 diabetes mellitus with diabetic polyneuropathy (Acute) Postsurgical hypothyroidism (Acute) Vitamin D deficiency (Acute) Essential hypertension (Acute) Past Medical History Medical History History of MRSA infection Port-A-Cath in place Hypokalemia Thyroid disease Insulin pump in place Numbness Cough SOB (shortness of breath) On beta suzanne at home CHF (congestive heart failure) History of chemotherapy Neuropathy Myocardial infarction Breast cancer (~09/2023) Preoperative cardiovascular examination Invasive ductal carcinoma of breast Breast cancer, right Breast mass, right Abnormal finding on mammography Abnormal echocardiogram Abnormal stress ECG with treadmill Hearing deficit CKD (chronic kidney disease) stage 3, GFR 30-59 ml/min Low back pain Bacterial conjunctivitis of both eyes Urine incontinence Well woman exam Pyelonephritis Left navicular fracture of foot Vitamin B12 deficiency Thyroid nodule History of Clostridium difficile infection Coronary artery disease Hypercholesterolemia Depression Kidney stone Carpal tunnel syndrome Arthritis 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 Vitamin D deficiency Essential hypertension Type 2 diabetes mellitus with hyperglycemia Family History Family History Father DM (diabetes mellitus) Hypertension High cholesterol Spina bifida Kidney stone CAD (coronary artery disease) Mother DM (diabetes mellitus) Hypertension High cholesterol CAD (coronary artery disease) Bipolar 1 disorder Maternal Aunt Lung cancer Maternal Grandfather Lung cancer Other Mental health disorder Family history of problems with anesthesia: No Surgical History Surgical History History of lumpectomy (~05/2024) History of coronary artery stent placement History of biopsy Hx of colonoscopy S/P triple vessel bypass Hx of toe surgery Hx of thyroidectomy History of renal stent Hx of section Hx of myomectomy Hx of tonsillectomy History of Problems with Anesthesia: No Social History Social History Household Members: Children Household Members Other:: daughter Housing: Apartment Are you a primary emergency care attendant to a significant other at home: No Do you presently have visiting nurse or other home services: No Alcohol intake: never Patient Tobacco Use Status: Never used Tobacco e-Cigarette/Vaping Use: Never Used Second Hand Smoke Exposure: No Advance Directives: No Advance Directives Information Provided: Yes service: No Current occupational status: employed Cognitive needs: No Hearing needs: No Vision needs: Yes Meds Allergies Allergy/AdvReac Type Severity Reaction Status Date / Time dulaglutide [From TRULICITY] Allergy Unknown DIARRHEA Verified 06/16/24 14:31 AND VOMITTING liraglutide [From VICTOZA] Allergy Unknown DIARRHEA Verified 06/16/24 14:31 AND VOMITTING, vomiting and diahrrea Home Medications ?Medication ?Instructions ?Recorded ?Confirmed ?Last Taken ?Type polyethylene glycol 3350 17 gram 17 g PO DAILY PRN Constipation 11/22/23 07/07/24 Unknown History oral powder packet (Miralax) cholecalciferol (vitamin D3) 50 50 mcg PO DAILY 05/18/24 07/07/24 Unknown History mcg (2,000 unit) capsule (Vitamin D3) docusate sodium 100 mg capsule 100 mg PO BEDTIME 05/18/24 07/07/24 Unknown History gabapentin 100 mg capsule 100 mg PO BEDTIME PRN Pain 05/18/24 07/07/24 Unknown History pantoprazole 40 mg tablet,delayed 40 mg PO DAILY PRN Acid Reflux 05/18/24 07/07/24 Unknown History release potassium chloride 20 mEq 1 tab PO DAILY 05/18/24 07/07/24 Unknown History tablet,extended release sennosides 8.6 mg tablet (senna) 8.6 mg PO BEDTIME 05/18/24 07/07/24 Unknown History Exam Height,Weight and Vital Signs: Height 5 ft 2 in Weight 75.75 kg Pertinent Lab Results Pertinent Lab Results: Laboratory Tests 04/20/24 06/01/24 06/06/24 16:21 12:11 10:41 WBC 7.7 Hgb 11.3 L Hct 34.4 L Plt Count 296 Sodium 142 Potassium 3.5 Chloride 107 Carbon Dioxide 30 H BUN 17 H Creatinine 0.99 Hgb A1c (Clinic) 8.8 H Narrative Narrative: ECHO 02/2024 Conclusions: - The left ventricular systolic function is mildly decreased. The visually estimated ejection fraction is between 45-50%. - Wall motion abnormalities related to underlying coronary disease. - No obvious valvular pathology seen on this study. EKG 12/2023 EKG Details: EKG with underlying sinus rhythm at 65/Min; can not exclude old septal infarct; nonspecific ST-T changes. Assessment and Plan Assessment Anesthesia Assessment: Chart Reviewed Final Anesthetic Review Family History of Problems with Anesthesia: No History of Problems with Anesthesia: No Documented by User: Kelly Betancourt MD 07/07/24 09:26 [facility] Past Medical History Medical History History of MRSA infection Port-A-Cath in place Hypokalemia Thyroid disease Insulin pump in place Numbness Cough SOB (shortness of breath) On beta suzanne at home CHF (congestive heart failure) History of chemotherapy Neuropathy Myocardial infarction Breast cancer (~09/2023) Preoperative cardiovascular examination Invasive ductal carcinoma of breast Breast cancer, right Breast mass, right Abnormal finding on mammography Abnormal echocardiogram Abnormal stress ECG with treadmill Hearing deficit CKD (chronic kidney disease) stage 3, GFR 30-59 ml/min Low back pain Bacterial conjunctivitis of both eyes Urine incontinence Well woman exam Pyelonephritis Left navicular fracture of foot Vitamin B12 deficiency Thyroid nodule History of Clostridium difficile infection Coronary artery disease Hypercholesterolemia Depression Kidney stone Carpal tunnel syndrome Arthritis 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 Vitamin D deficiency Essential hypertension Type 2 diabetes mellitus with hyperglycemia Family History Family History Father DM (diabetes mellitus) Hypertension High cholesterol Spina bifida Kidney stone CAD (coronary artery disease) Mother DM (diabetes mellitus) Hypertension High cholesterol CAD (coronary artery disease) Bipolar 1 disorder Maternal Aunt Lung cancer Maternal Grandfather Lung cancer Other Mental health disorder Surgical History Surgical History History of lumpectomy (~05/2024) History of coronary artery stent placement History of biopsy Hx of colonoscopy S/P triple vessel bypass Hx of toe surgery Hx of thyroidectomy History of renal stent Hx of section Hx of myomectomy Hx of tonsillectomy Social History Social History Household Members: Children Household Members Other:: daughter Housing: Apartment Are you a primary emergency care attendant to a significant other at home: No Do you presently have visiting nurse or other home services: No Alcohol intake: never Patient Tobacco Use Status: Never used Tobacco e-Cigarette/Vaping Use: Never Used Second Hand Smoke Exposure: No Advance Directives: No Advance Directives Information Provided: Yes service: No Current occupational status: employed Cognitive needs: No Hearing needs: No Vision needs: Yes Meds Allergies Allergy/AdvReac Type Severity Reaction Status Date / Time dulaglutide [From TRULICITY] Allergy Unknown DIARRHEA Verified 06/16/24 14:31 AND VOMITTING liraglutide [From VICTOZA] Allergy Unknown DIARRHEA Verified 06/16/24 14:31 AND VOMITTING, vomiting and diahrrea Home Medications ?Medication ?Instructions ?Recorded ?Confirmed ?Last Taken ?Type polyethylene glycol 3350 17 gram 17 g PO DAILY PRN Constipation 11/22/23 07/07/24 Unknown History oral powder packet (Miralax) cholecalciferol (vitamin D3) 50 50 mcg PO DAILY 05/18/24 07/07/24 Unknown History mcg (2,000 unit) capsule (Vitamin D3) docusate sodium 100 mg capsule 100 mg PO BEDTIME 05/18/24 07/07/24 Unknown History gabapentin 100 mg capsule 100 mg PO BEDTIME PRN Pain 05/18/24 07/07/24 Unknown History pantoprazole 40 mg tablet,delayed 40 mg PO DAILY PRN Acid Reflux 05/18/24 07/07/24 Unknown History release potassium chloride 20 mEq 1 tab PO DAILY 05/18/24 07/07/24 Unknown History tablet,extended release sennosides 8.6 mg tablet (senna) 8.6 mg PO BEDTIME 05/18/24 07/07/24 Unknown History Exam Airway Mallampati Class: II TM Dist: >3cm Neck ROM: Full Heart: rrr Lungs: cta Assessment and Plan Assessment Anesthesia Assessment: Anesthesia Plan Discussed Final Anesthetic Review NPO: Yes ASA Class: III Final Preanesthetic Review: No Changes in Pt Med Stat, Meds/Allgs Chart Reviewed, Consent Obtained/Reviewed and Anes Risks/Benef Reviewed Patient Risk: Intermediate Procedure Risk: Intermediate Anesthetic Plan Anesthetic Plan: GA, Regional Block and Agree w/ Assess. and Plan Disposition: Standard PACU
[2024-07-07] VITALS (18 sets, daily range): BP systolic 97–149; BP diastolic 51–88; PULSE 70–81; RESP 10–20; TEMP 36.1–36.7; O2SAT 94–100; BMI 30.6
[2024-07-07] MEDS: Lactated Ringers 1,000 ML 100 ML IVCONT (09:32)
--- NOTE | 2024-07-07 09:50 | MHC.SHP ---
Pre-Procedural Eval Section A - 24 Hr Update-Section A only Date of Service: 07/07/24 The patient is an INPATIENT: No Changes since office visit: No Cold of Flu in the past 2 weeks, No New Medical Problems, No Changes in Medication and No Patient answered all questions The patient has been examined within 24 hours of the surgical procedure. The History & Physical has been completed within 30 days and I have reviewed it.: Yes Section B - Complete if H&P > 30 days Chief Complaint: Malignant neoplasm of unspecified site Allergies: Allergies Allergy/AdvReac Type Severity Reaction Status Date / Time dulaglutide [From TRULICITY] Allergy Unknown DIARRHEA Verified 06/16/24 14:31 AND VOMITTING liraglutide [From VICTOZA] Allergy Unknown DIARRHEA Verified 06/16/24 14:31 AND VOMITTING, vomiting and diahrrea Plan I have reviewed the history and physical and performed a pertinent physical examination on my patient. No changes have occurred unless specified. Time Spent With Patient Time: Total time managing care of this patient today ____ minutes.
--- NOTE | 2024-07-07 10:06 | PC.NURSE ---
pt took her asa today dr menjivar aware okayto proceed
--- NOTE | 2024-07-07 12:03 | W.PM.OPN ---
Operative Note Operative Note Date of Service: 07/07/24 Narrative: Preop diagnosis: Status post lumpectomy and sentinel biopsy for right breast invasive ductal carcinoma with positive margins Postop diagnosis: The same Procedure: Simple mastectomy Surgeon: Blas Shine MD records management assistant: TAYO Lowe The patient is a 59-year-old female who had undergone lumpectomy and sentinel biopsy on the right breast last month for invasive ductal cancer. 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 In view of these margins, I explained to her that she needed wider margins and she preferred to undergo simple mastectomy instead of re-excision. She understood the technique of the planned procedure as well as the risks, benefits, and alternatives. She was brought to the operating room. She was placed supine with the right arm abducted under general anesthesia via endotracheal tube. A surgical time-out had been done. The patient received cefazolin 2 g IV preoperatively A regional block was done by the anesthesiologist as per [facility] protocol. The right breast and axilla were prepped and draped in the usual sterile fashion. I made an elliptical incision on the right breast around the nipple-areolar complex using blade 15. This carried down with electrocautery through the full-thickness of the skin and subcutaneous flap. I then developed the superior flap using electrocautery up to about 5 mm thick. This was carried all the way down to just below the clavicle as the superior margin. The sternum was the medial margin for this dissection. Inferiorly, we carried this down to the inframammary fold I therefore continued to develop this flap all the way until was able to identify the pectoralis fascia on the superior aspect. I developed a plane of dissection between the pectoralis fascia and the pectoralis muscle with a combination of blunt dissection with the tip of the finger and electrocautery. I extended this plane of dissection medially at the sternum all the way down to the inframammary fold. I the entire breast along this well-defined plane of dissection in this manner of dissection until I was able to visualize the lateral margin of the pectoralis. I continued to therefore resect the breast tissue off of the pectoralis and from the axillary fat pad. We periodically had to control bleeders on the muscle with [id number] Polysorb 3-0 sutures well as ligation Eventually, as able to remove the entire breast tissue off of the axilla and the chest wall. This was sent as a specimen. The medial aspect of this specimen was marked with a stitch. We cauterized oozing areas. We made sure that there was good hemostasis especially on the raw muscle fibers I then positioned a 10. JAREK drain at the lateral aspect of the inferior flap going medially and a ports to the superior flap. This was secured to the skin with a nylon 3-0 stitch Once hemostasis was again confirmed after observation, I then proceeded to irrigate copiously. I then reapposed the subdermal layer with multiple simple interrupted Polysorb 3-0 sutures. Skin closure achieved with Polysorb 4-0 subcuticular running stitch Dressings were applied. The mastectomy site was wrapped with a 6 in Brad bandage and a breast binder was then applied. The JAREK drain was connected The procedure was then completed The patient tolerated procedure well. There were no immediate complications. Initial and final counts of sponges and instruments were correct. Estimated blood loss was about 25 cc The patient was extubated without difficulty and transferred to the recovery room with stable vital signs.
[2024-07-07 12:25] LABS: Glucose, Whole Blood 256 mg/dL (60-115)
--- NOTE | 2024-07-07 14:34 | PM.EVENT ---
Event Note Date of Service: 07/07/24 Event Note: Seen postop Status post simple mastectomy earlier, for close margins after lumpectomy for right breast invasive ductal cancer Appears to have adequate pain control JAREK drain scanty Looks well Dressings dry Brad wrap and chest binder in place Stable vital signs Pain management Family updated Time Spent With Patient Time: Total time managing care of this patient today ____ minutes.
[2024-07-07 16:52] LABS: Glucose, Whole Blood 281 mg/dL (60-115)
[2024-07-07] MEDS: Acetaminophen 1,000 MG/100 ML PIGGYBACK 400 MG IV (17:58)
[2024-07-07 18:09] LABS: Glucose, Whole Blood 227 mg/dL (60-115)
--- NOTE | 2024-07-07 18:44 | PC.NURSE ---
Pt arrived to unit postop mastectomy. DRessing CDI with patricia wrap and JAREK drain draining bloody. Pt has own insulin pump to right abdomen and own dexcon to left abdomen. Pt wishes to use own insulin until it runs out. Izzy Louise notified and will review. Portacath to left chest not accessed and pt states is used for Chemo.
--- NOTE | 2024-07-07 20:22 | HO.PM.IMCN ---
History of Present Illness Data of Consult Service Date: 07/07/24 Primary Care Provider: Dany Rubio MD HPI Reason for consult: Medical management Pt is a 59-year-old female with a PMH significant for HTN, HLD, insulin-dependent type 2 diabetes on insulin pump, ischemic cardiomyopathy, CAD s/p stending to LAD in 2014 and CABG in 2021, hypothyroidism, CKD 3, breast cancer, and GERD who was admitted to the hospital under general surgery services for simple mastectomy for right breast invasive ductal carcinoma. POD0. Hospitalist consult for medical management. Pt seen and evaluated in her room where she is resting comfortably in bed. Pt reports of mild right-sided chest soreness at surgical site. Denies nausea vomiting. No abdominal pain. No chest pressure palpitations. Denies shortness or breath or difficulty breathing. Pt reports that she is a type 2 diabetic that ?acts like a type 1?. Has insulin pump that she reports will likely run out of insulin sometime tomorrow. Review of Systems Review of Systems: Negative except for that which is stated in the HPI. [facility] Medical History History of MRSA infection Port-A-Cath in place Hypokalemia Thyroid disease Insulin pump in place Numbness Cough SOB (shortness of breath) On beta suzanne at home CHF (congestive heart failure) History of chemotherapy Neuropathy Myocardial infarction Breast cancer (~09/2023) Preoperative cardiovascular examination Invasive ductal carcinoma of breast Breast cancer, right Breast mass, right Abnormal finding on mammography Abnormal echocardiogram Abnormal stress ECG with treadmill Hearing deficit CKD (chronic kidney disease) stage 3, GFR 30-59 ml/min Low back pain Bacterial conjunctivitis of both eyes Urine incontinence Well woman exam Pyelonephritis Left navicular fracture of foot Vitamin B12 deficiency Thyroid nodule History of Clostridium difficile infection Coronary artery disease Hypercholesterolemia Depression Kidney stone Carpal tunnel syndrome Arthritis 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 Vitamin D deficiency Essential hypertension Type 2 diabetes mellitus with hyperglycemia Family History Father DM (diabetes mellitus) Hypertension High cholesterol Spina bifida Kidney stone CAD (coronary artery disease) Mother DM (diabetes mellitus) Hypertension High cholesterol CAD (coronary artery disease) Bipolar 1 disorder Maternal Aunt Lung cancer Maternal Grandfather Lung cancer Other Mental health disorder Surgical History History of lumpectomy (~05/2024) History of coronary artery stent placement History of biopsy Hx of colonoscopy S/P triple vessel bypass Hx of toe surgery Hx of thyroidectomy History of renal stent Hx of section Hx of myomectomy Hx of tonsillectomy Social History Household Members: None Household Members Other:: daughter Housing: Apartment Are you a primary customer care assistant to a significant other at home: No Do you presently have visiting nurse or other home services: No Alcohol intake: never Patient Tobacco Use Status: Never used Tobacco e-Cigarette/Vaping Use: Never Used Second Hand Smoke Exposure: No Use of substances other than those prescribed or required for medical reasons: No Have you been hit, kicked, punched, or otherwise hurt by someone within the past year? If so, by whom?: No Do you feel safe in your current relationship?: No Current Relationship Is there a partner from a previous relationship who is making you feel unsafe now?: No Are you made to feel afraid or neglected: No Are you DNR?: No Advance Directives: No Advance Directives Information Provided: Yes Do you have a plan to hurt others: No Plan Recently lost weight without trying: No Eating poorly because of decreased appetite: No Nutrition Risks: No Nutritional Risk Patient : No service: No Current occupational status: employed Cognitive needs: No Hearing needs: No Vision needs: Yes Meds Allergies Allergy/AdvReac Type Severity Reaction Status Date / Time dulaglutide [From TRULICITY] Allergy Unknown DIARRHEA Verified 06/16/24 14:31 AND VOMITTING liraglutide [From VICTOZA] Allergy Unknown DIARRHEA Verified 06/16/24 14:31 AND VOMITTING, vomiting and diahrrea Active Medications: Current Medications Amlodipine Besylate (Amlodipine Besylate 5 Mg Tablet) 5 mg PO DAILY [facility]; Protocol Aspirin (Aspirin Enteric Coated 81 Mg Tablet.Dr) 81 mg PO DAILY [facility] Calcium Carbonate (Calcium Carbonate 750 Mg Tab.Chew) 750 mg PO Q4H PRN PRN Reason: Heartburn Dextrose (Dextrose 50 % 25 Gm/50 Ml Syringe) 25 gm IVPUSH Q15M PRN; Protocol PRN Reason: per Hypoglycemia Standing Ord. Docusate Sodium (Docusate Sodium 100 Mg Capsule) 100 mg PO BID [facility] Ezetimibe (Ezetimibe 10 Mg Tablet) 10 mg PO DAILY [facility] Furosemide (Furosemide 40 Mg Tablet) 40 mg PO DAILY [facility]; Protocol Glucose (Glucose Gel 15 Gm Gel..Gram.) 15 gm PO Q15M PRN; Protocol PRN Reason: per Hypoglycemia Standing Ord. Heparin Sodium (Porcine) (Heparin Sodium,Porcine 5,000 Unit/Ml Vial) 5,000 unit SUBCUT Q8H [facility] Hydromorphone HCl (Hydromorphone Hcl 0.5 Mg/0.5 Ml Syringe) 0.5 mg IVPUSH Q4H PRN; Protocol PRN Reason: Pain, Severe (Pain Scale 7-10) Acetaminophen (Ofirmev) 1,000 mg in 100 mls @ 400 mls/hr IV Q6H [facility] Last Infusion: 07/07/24 18:21 Dose: Infused Insulin Human Lispro (Insulin Lispro 100 Unit/Ml 3 Ml Vial) 0 unit SUBCUT QIDACHS [facility]; Protocol Last Admin: 07/07/24 20:03 Dose: Not Given Levothyroxine Sodium (Levothyroxine Sodium 125 Mcg Tablet) 125 mcg PO DAILY [facility] Magnesium Hydroxide (Milk Of Magnesia 30 Ml Oral.Susp) 30 ml PO DAILY PRN PRN Reason: Constipation Melatonin (Melatonin 3 Mg Tablet) 6 mg PO BEDTIME PRN PRN Reason: Insomnia Metoprolol Tartrate (Metoprolol Tartrate 25 Mg Tablet) 25 mg PO BID [facility]; Protocol Non-Formulary Medication (Pantoprazole) 40 mg PO DAILY PRN PRN Reason: Acid Reflux Non-Formulary Medication (Rosuvastatin) 40 mg PO BEDTIME [facility] Oxycodone HCl (Oxycodone Hcl Immed Release 5 Mg Tablet) 5 mg PO Q4H PRN PRN Reason: Pain, Moderate(Pain Scale 4-6) Potassium Chloride (Potassium Chloride Er 20 Meq Tab.Er.Prt) meq PO DAILY [facility] Sodium Chloride (0.9 % Sodium Chloride Flush 3 Ml Syringe) 3 ml IVFLUSH QSHIFT [facility] Last Admin: 07/07/24 18:16 Dose: Not Given Home Medications ?Medication ?Instructions ?Recorded ?Confirmed ?Last Taken ?Type cholecalciferol (vitamin D3) 50 50 mcg PO DAILY 05/18/24 07/07/24 07/05/24 History mcg (2,000 unit) capsule (Vitamin D3) docusate sodium 100 mg capsule 100 mg PO BEDTIME 05/18/24 07/07/24 07/05/24 History pantoprazole 40 mg tablet,delayed 40 mg PO DAILY PRN Acid Reflux 05/18/24 07/07/24 07/06/24 History release potassium chloride 20 mEq 1 tab PO BID 05/18/24 07/07/24 07/06/24 History tablet,extended release sennosides 8.6 mg tablet (senna) 8.6 mg PO BEDTIME 05/18/24 07/07/24 07/05/24 History amlodipine 5 mg tablet 5 mg PO BEDTIME 07/07/24 07/07/24 07/07/24 History gabapentin 100 mg capsule 100 mg PO BEDTIME PRN Pain 07/07/24 07/07/24 Unknown History pyridoxine (vitamin B6) 100 mg 100 mg PO DAILY 07/07/24 07/07/24 07/05/24 History tablet Physical Exam Vital Signs and Narrative: Vital Signs: Last Vital Signs Temp 98.1 F 07/07/24 17:52 Pulse 70 07/07/24 17:52 Resp 16 07/07/24 17:52 BP 102/61 07/07/24 17:52 Pulse Ox 95 07/07/24 17:52 O2 Del Method Nasal Cannula 07/07/24 17:52 O2 Flow Rate 1.0 07/07/24 17:52 BMI result Body Mass Index 30.6 General: AOx3, no acute distress Resp: CTA bilaterally CVS: S1, S2, RRR Chest: Appropriate tenderness at surgical sites. Drain in place with scant amount of serous sanguinous discharge. Clean dressing and chest binder in place. GI: +BS, NT, no distention Skin: Warm, dry Neuro: Cranial nerves II-XII grossly intact bilaterally. Motor grossly intact bilaterally Extremities: No edema Psych: Appropriate affect Results Labs Labs: Laboratory Results - last 24 hr 07/07/24 07/07/24 07/07/24 09:28 12:19 12:21 POC Glucose 256 H 281 H Blood Type A Positive Antibody Screen NEGATIVE 07/07/24 18:03 POC Glucose 227 H Blood Type Antibody Screen Assessment and Plan (1) S/P right mastectomy: Status: Acute Plan Pt is a 59-year-old female with a PMH significant for HTN, HLD, insulin-dependent type 2 diabetes, ischemic cardiomyopathy, CAD s/p stending to LAD in 2014 and CABG in 2021, hypothyroidism, CKD 3, breast cancer, and GERD who was admitted to the hospital under general surgery services for simple mastectomy for right breast invasive ductal carcinoma. POD0. Hospitalist consult for medical management. Invasive ductal carcinoma S/p simple mastectomy Plan as per General surgery Insulin-dependent type 2 diabetes Pt has insulin pump, reports she ?acts like a type [address] on sliding scale insulin Can continue home isulin pump for now, though pt reports will likely run out tomorrow Monitor POCs and start Lantus as necessary Diabetic diet CAD S/P stenting in 2014 and CABG in 2021 Continue aspirin, statin, ezetimibe Hypertension BP has been soft Hold amlodipine and metoprolol for now Resume as warranted Ischemic cardiomyopathy Continue Lasix GERD Continue PPI Thank you for allowing us to participate in the care of this patient. Will continue to follow along with you.
[2024-07-07 20:40] LABS: Glucose, Whole Blood 228 mg/dL (60-115)
--- NOTE | 2024-07-07 21:01 | PHA.MEDREC ---
Addendum entered by Edgar Palm 07/07/24 21:31: reviewed Original Note: Pharmacy Consult ? Medication Reconciliation Pharmacy has reviewed the medication reconciliation done by nursing. Spoke to patient to confirm med list. Patient was able to confirm all her medications. Patient states amlodipine 5 mg is at bedtime NOT Daily, Potassium chlor is BID NOT daily. Patient states she still takes Empaglifozin 10 mg ( did stop 3 days prior to surgery), Ezetimibe 10 mg. Patient confirmed Insulin aspart via insulin pump. Patient has a Tandom pump( it has 90 units left. will be out by tomorrow). Patient states she took off her dexcom prior to coming to [facility] and didn't put o a new one.
[2024-07-07] MEDS: oxyCODONE HCl Immed Release 5 MG TABLET PO (21:14)
[2024-07-07] MEDS: Docusate Sodium 100 MG CAPSULE PO (21:14)
[2024-07-08] MEDS: Pantoprazole Sodium 20 MG TABLET.DR 40 MG PO (06:04)
[2024-07-08] MEDS: Acetaminophen 1,000 MG/100 ML PIGGYBACK 400 MG IV ×3 (06:04→17:03)
[2024-07-08 06:41] LABS: MANUAL DIFF FLAG NO
--- NOTE | 2024-07-08 06:57 | P.PNGS_ITS ---
Subjective Subjective Date of Service: 07/08/24 <[facility] - Last Filed: 07/08/24 07:15> 07/08/24 <Nikky Lowe PA-C - Last Filed: 07/08/24 07:51> 07/08/24 <Blas Shine MD - Last Filed: 07/08/24 08:01> Interval history: Patient seen and examined this morning. States pain is a 6/10. Has been OOB to bathroom, urinating without difficultly. Tolerating diet. No bowel movement but is passing flatus. Denies nausea, vomiting or shortness of breath. States bandage is causing discomfort. <[facility] - Last Filed: 07/08/24 07:15> Physical Exam 2 Vital Signs: Vital Signs: Last Vital Signs Temp 98.1 F 07/07/24 23:34 Pulse 71 07/07/24 23:34 Resp 18 07/07/24 23:34 BP 118/56 L 07/07/24 23:34 Pulse Ox 94 07/07/24 23:34 O2 Del Method Nasal Cannula 07/07/24 23:34 O2 Flow Rate 1 07/07/24 23:34 BMI result Body Mass Index 30.6 <[facility] - Last Filed: 07/08/24 07:15> Const: Other: Laying in bed, awake, calm, in no acute distress, orienatedx3. <[facility] - Last Filed: 07/08/24 07:15> Orientation/consciousness: patient oriented x3 <Nikky Lowe PA-C - Last Filed: 07/08/24 07:51> Chest: Other: Dressings intact, no erythema, warmth or hematoma noted. JAREK drain with small amount of sanguineous fluid. Chest binder in place. Chemotherapy port felt subcutaneously on left side of chest. <[facility] - Last Filed: 07/08/24 07:15> Other: Dressings intact, no erythema or fullness noted. JAREK drain with small amount of serosanguineous fluid. Chest binder in place. Chemotherapy port felt subcutaneously on left side of chest. <Nikky Lowe PA-C - Last Filed: 07/08/24 07:51> Resp: Effort & Inspection: normal respiratory effort and able to speak in complete sentences <[facility] - Last Filed: 07/08/24 07:15> GI: Other: Abdomen is soft and non tender, non distended. <[facility] - Last Filed: 07/08/24 07:15> Skin: Other: No lesions or rashes noted <Jjpjsf-EK-Qtnikws-[facility] - Last Filed: 07/08/24 07:15> Neuro: General: patient oriented x3 and moves all extremities <Nikky Lowe PA-C - Last Filed: 07/08/24 07:51> Extrem: Other: Moving all extremities normally. No lower extremity edema noted. <Zolscu-GB-Dvxulkp-[facility] - Last Filed: 07/08/24 07:15> Objective Data Active Medications Amlodipine Besylate (Amlodipine Besylate 5 Mg Tablet) 5 mg PO DAILY [facility]; Protocol Aspirin (Aspirin Enteric Coated 81 Mg Tablet.Dr) 81 mg PO DAILY [facility] Atorvastatin Calcium (Atorvastatin Calcium 80 Mg Tablet) 80 mg PO BEDTIME [facility] Calcium Carbonate (Calcium Carbonate 750 Mg Tab.Chew) 750 mg PO Q4H PRN PRN Reason: Heartburn Dextrose (Dextrose 50 % 25 Gm/50 Ml Syringe) 25 gm IVPUSH Q15M PRN; Protocol PRN Reason: per Hypoglycemia Standing Ord. Docusate Sodium (Docusate Sodium 100 Mg Capsule) 100 mg PO BID [facility] Last Admin: 07/07/24 21:14 Dose: 100 mg Documented By: RADU Ezetimibe (Ezetimibe 10 Mg Tablet) 10 mg PO DAILY [facility] Furosemide (Furosemide 40 Mg Tablet) 40 mg PO DAILY [facility]; Protocol Glucose (Glucose Gel 15 Gm Gel..Gram.) 15 gm PO Q15M PRN; Protocol PRN Reason: per Hypoglycemia Standing Ord. Heparin Sodium (Porcine) (Heparin Sodium,Porcine 5,000 Unit/Ml Vial) 5,000 unit SUBCUT Q8H [facility] Hydromorphone HCl (Hydromorphone Hcl 0.5 Mg/0.5 Ml Syringe) 0.5 mg IVPUSH Q4H PRN; Protocol PRN Reason: Pain, Severe (Pain Scale 7-10) Acetaminophen (Ofirmev) 1,000 mg in 100 mls @ 400 mls/hr IV Q6H [facility] Last Infusion: 07/08/24 06:28 Dose: Infused Documented By: RADU Insulin Human Lispro (Insulin Lispro 100 Unit/Ml 3 Ml Vial) 0 unit SUBCUT QIDACHS [facility]; Protocol Last Admin: 07/07/24 20:03 Dose: Not Given Documented By: [facility]U Non-Admin Reason: pt using own insulin pump Levothyroxine Sodium (Levothyroxine Sodium 125 Mcg Tablet) 125 mcg PO DAILY [facility] Magnesium Hydroxide (Milk Of Magnesia 30 Ml Oral.Susp) 30 ml PO DAILY PRN PRN Reason: Constipation Melatonin (Melatonin 3 Mg Tablet) 6 mg PO BEDTIME PRN PRN Reason: Insomnia Metoprolol Tartrate (Metoprolol Tartrate 25 Mg Tablet) 25 mg PO BID [facility]; Protocol Last Admin: 07/07/24 21:53 Dose: Not Given Documented By: [facility]U Non-Admin Reason: HOLD Oxycodone HCl (Oxycodone Hcl Immed Release 5 Mg Tablet) 5 mg PO Q4H PRN PRN Reason: Pain, Moderate(Pain Scale 4-6) Last Admin: 07/07/24 21:14 Dose: 5 mg Documented By: RADU Pantoprazole Sodium (Pantoprazole Sodium 20 Mg Tablet.Dr) 40 mg PO DAILY@0630 [facility] Last Admin: 07/08/24 06:04 Dose: 40 mg Documented By: [facility]U Potassium Chloride (Potassium Chloride Er 20 Meq Tab.Er.Prt) 20 meq PO DAILY [facility] Sodium Chloride (0.9 % Sodium Chloride Flush 3 Ml Syringe) 3 ml IVFLUSH QSHIFT [facility] Last Admin: 07/08/24 00:55 Dose: Not Given Documented By: [facility]U Non-Admin Reason: Previously Administered <[facility] - Last Filed: 07/08/24 07:15> Labs CBC & Chem 7: 07/08/24 05:54 07/08/24 05:54 <[facility] - Last Filed: 07/08/24 07:15> Labs: Laboratory Results - last 24 hr 07/07/24 07/07/24 07/07/24 09:28 12:19 12:21 POC Glucose 256 H 281 H Blood Type A Positive Antibody Screen NEGATIVE 07/07/24 07/07/24 18:03 19:42 POC Glucose 227 H 228 H Blood Type Antibody Screen <Lxggvl-ST-Zjlcdiy-Ah Esa - Last Filed: 07/08/24 07:15> Procedures Date of Service Date of Service: 07/08/24 <Arlipp-SZ-Sevrdwe-Ah [facility] - Last Filed: 07/08/24 07:15> 07/08/24 <Nikky Lowe PA-C - Last Filed: 07/08/24 07:51> 07/08/24 <Blas Shine MD - Last Filed: 07/08/24 08:01> Progress Note: A&P Assessment and plan (1) S/P right mastectomy: Status: Acute <Emizyc-AQ-Xfjcpyn-Ah Esa - Last Filed: 07/08/24 07:15> Assessment and Plan: Feels well Says she had a good night Good pain control No obvious hematoma JAREK drain serosanguineous She states she is not ready to go home today Possible home tomorrow Doing well overall Seen and examined independently <Blas Shine MD - Last Filed: 07/08/24 08:01> Assessment and Plan: Patient is POD#1 s/p right simple masectomy. Chest exam benign, JAREK drain with small amount of sanguineous fluid, with total of 20mL overnight. Vitals wnl. Continue current pain regimen. increase OOB/ambulation. IS encouraged. will review labs. <Hcrpmh-SK-Bqvmpou-Ah Esa - Last Filed: 07/08/24 07:15> Patient is POD#1 s/p right simple masectomy. Chest exam benign, JAREK drain with small amount of sanguineous fluid, with total of 20mL overnight. Vitals wnl. Continue current pain regimen. increase OOB/ambulation. IS encouraged. will review labs. Agree with above assessment and plan. POD #1 s/p right simple mastectomy for lumpectomy and sentinel biopsy for 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 Doing well post op, pain controlled. JAREK drain with low serosanguineous output, mastectomy dressing intact, no appreciable fullness, visible flaps appear viable. WBC elevated, likely reactive. Repeat in AM. Incentive spiromter, increasing activity encouraged today. Possibly home tomorrow with [facility]NA services if remains stable. <Nikky Lowe PA-C - Last Filed: 07/08/24 07:51> Time Spent With Patient Time: Total time managing care of this patient today ____ minutes. <[facility] - Last Filed: 07/08/24 07:15> Quality Stroke Does the patient have a stroke diagnosis?: No <Nikky Lowe PA-C - Last Filed: 07/08/24 07:51> VTE Prior VTE?: No <Nikky Lowe PA-C - Last Filed: 07/08/24 07:51> VTE Risk Level:: Medical - moderate - high <[facility] - Last Filed: 07/08/24 07:15> VTE Device Contraindication: N/A - Device Ordered <[facility] - Last Filed: 07/08/24 07:15> VTE Drug Contraindication: N/A - Med Ordered <[facility] - Last Filed: 07/08/24 07:15>
[2024-07-08 07:05] LABS: Anion Gap 11 (12-20); Blood Urea Nitrogen 21 mg/dL (9-16); Calcium 9.4 mg/dL (8.4-10.2); Carbon Dioxide 27 mmol/L (22-29); Chloride 104 mmol/L (96-108); Creatinine Clr Calc Pharmacy 56.4; Estimated Glomerular Filt Rate 56; Glucose Fasting 218 mg/dL (60-99); Potassium 3.4 mmol/L (3.3-5.1); Sodium 139 mmol/L (135-145)
[2024-07-08 07:07] LABS: Basophils Percent Auto 0.2 % (0-2); Eosinophils Percent Auto 0.1 % (0-4); Hematocrit 35.1 % (37.0-47.0); Hemoglobin 11.6 g/dl (12.0-16.0); Imm Gran Abs Auto 0.05 X10*3/uL (0.00-0.03); Imm Gran Pct Auto 0.3 % (0.0-0.4); Lymphocytes Absolute Auto 1.8 X10*3/uL (1.2-4.9); Lymphocytes Percent Auto 11.3 % (20-40); Mean Corpuscular Hemoglobin 28.2 pg (27.0-33.0); Mean Corpuscular Volume 85.4 fL (80.0-98.0); Mean Platelet Volume 11.7 fL (9.4-12.3); Monocytes Absolute Auto 1.2 X10*3/uL (0.1-1.2); Monocytes Percent Auto 7.6 % (2-11); Neutrophils Absolute Auto 12.9 x10*3/uL (2.0-8.3); Neutrophils Percent Auto 80.5 % (45-73); Platelet Count 260 X10*3/uL (160-400); Red Blood Count 4.11 X10*6/uL (4.20-5.50); Red Cell Distribution Width 15.8 % (11.0-16.0)
[2024-07-08 07:15] VITALS: BP 116/61; PULSE 63; RESP 14; TEMP 36.6; O2SAT 96
[2024-07-08 07:32] LABS: Glucose, Whole Blood 192 mg/dL (60-115)
[2024-07-08] MEDS: Ezetimibe 10 MG TABLET PO (08:11)
[2024-07-08] MEDS: Levothyroxine Sodium 125 MCG TABLET PO (08:12)
[2024-07-08] MEDS: Aspirin Enteric Coated 81 MG TABLET.DR PO (08:12)
[2024-07-08] MEDS: Furosemide 40 MG TABLET PO (08:12)
[2024-07-08] MEDS: Docusate Sodium 100 MG CAPSULE PO ×2 (08:12→21:05)
[2024-07-08] MEDS: Potassium Chloride ER 20 MEQ TAB.ER.PRT PO (08:12)
[2024-07-08] MEDS: 0.9 % Sodium Chloride Flush 3 ML SYRINGE IVFLUSH ×3 (08:13→21:06)
[2024-07-08] MEDS: oxyCODONE HCl Immed Release 5 MG TABLET PO (08:27)
--- NOTE | 2024-07-08 09:46 | HO.POSTANES ---
Post Anesthesia Evaluation Post Anesthesia Evaluation Date of Service: 07/08/24 Vital Signs: Vital Signs Temp Pulse Resp BP Pulse Ox O2 Del Method O2 Flow Rate 07/08/24 07:15 97.8 F 63 14 116/61 96 Nasal Cannula 1 07/07/24 23:34 98.1 F 71 18 118/56 L 94 Nasal Cannula 1 Anesthesia: General Endotracheal-GETA Mental Status: Awake Pain Control: Satisfactory Nausea/Vomiting: None Hydration: Adequate Anesthesia-Related Issues: No Anes. Related Issues
[2024-07-08 11:24] LABS: Glucose, Whole Blood 189 mg/dL (60-115)
--- NOTE | 2024-07-08 11:31 | MHC.CM.PN ---
S/P R MASTECTOMY 07/07/24 PSHX Lumpectomy 05/2024 Post op another lesion was identified. The Patient decided to undergo a Mastectomy She lives alone. She is independent with all functional mobility. HCP is on file. Patient will stay with her sister at discharge [address] [place] [address]. [facility] referred as requested. DP to sister's home with [facility]. Patient will arrange for a family member to provide transportation home.
[2024-07-08 12:00] VITALS: O2SAT 97
[2024-07-08] MEDS: Heparin Sodium,Porcine 5,000 UNIT/ML VIAL 5000 UNIT SUBCUT ×2 (14:24→21:07)
[2024-07-08 15:00] VITALS: BP 102/72; PULSE 69; RESP 16; TEMP 37; O2SAT 96
[2024-07-08 16:13] LABS: Glucose, Whole Blood 199 mg/dL (60-115)
[2024-07-08 21:01] LABS: Glucose, Whole Blood 220 mg/dL (60-115)
[2024-07-08] MEDS: Atorvastatin Calcium 80 MG TABLET PO (21:06)
[2024-07-08 23:53] VITALS: BP 121/57; PULSE 63; RESP 16; TEMP 36.1; O2SAT 94
[2024-07-09] MEDS: Pantoprazole Sodium 20 MG TABLET.DR 40 MG PO (05:31)
[2024-07-09] MEDS: Heparin Sodium,Porcine 5,000 UNIT/ML VIAL 5000 UNIT SUBCUT (05:31)
[2024-07-09] MEDS: Acetaminophen 1,000 MG/100 ML PIGGYBACK 400 MG IV ×2 (05:37)
--- NOTE | 2024-07-09 06:39 | P.PNGS_ITS ---
Subjective Subjective Date of Service: 07/09/24 <[facility] - Last Filed: 07/09/24 06:48> 07/09/24 <Nikky Lowe PA-C - Last Filed: 07/09/24 07:50> 07/09/24 <Blas Shine MD - Last Filed: 07/09/24 08:02> Interval history: Patient seen and examined this morning, says pain is so-so . Has been ambulating well. Tolerating diet. Urinating without difficulty. Passing gas, no bowel movement. Denies shortness of breath, nausea or vomiting. < [facility] - Last Filed: 07/09/24 06:48> Physical Exam 2 Vital Signs: Vital Signs: Last Vital Signs Temp 96.9 F 07/08/24 23:53 Pulse 63 07/08/24 23:53 Resp 16 07/08/24 23:53 BP 121/57 L 07/08/24 23:53 Pulse Ox 94 07/08/24 23:53 O2 Del Method Room Air 07/08/24 23:53 O2 Flow Rate 1 07/08/24 07:15 BMI result Body Mass Index 30.6 <[facility] - Last Filed: 07/09/24 06:48> Const: Other: Laying in bed, awake, calm, in no acute distress, orientaedx3. <[facility] - Last Filed: 07/09/24 06:48> Orientation/consciousness: patient oriented x3 <Nikky Lowe PA-C - Last Filed: 07/09/24 07:50> Chest: Other: Dressings intact, no erythema, warmth or hematoma noted. JAREK drain with sanguineous fluid intact. Chest binder in place. <[facility] - Last Filed: 07/09/24 06:48> Other: Dressings intact, no erythema, warmth or fullness of upper flap noted. JAREK drain with serosanguineous fluid intact. Chest binder in place. <Nikky Lowe PA-C - Last Filed: 07/09/24 07:50> Resp: Effort & Inspection: normal respiratory effort and able to speak in complete sentences <[facility] - Last Filed: 07/09/24 06:48> Cardio: Other: Regular rate and rhythm <[facility] - Last Filed: 07/09/24 06:48> GI: Other: Abdomen soft and non tender. Bowel sounds appreciated <[facility] - Last Filed: 07/09/24 06:48> Skin: General skin exam: no rashes or lesions noted <Nikky Lowe PA-C - Last Filed: 07/09/24 07:50> Neuro: General: patient oriented x3 and moves all extremities <Nikky Lowe PA-C - Last Filed: 07/09/24 07:50> Extrem: Other: Moving all extremities normally. No lower extremity edema noted <[facility] - Last Filed: 07/09/24 06:48> Objective Data Active Medications Amlodipine Besylate (Amlodipine Besylate 5 Mg Tablet) 5 mg PO DAILY [facility]; Protocol Aspirin (Aspirin Enteric Coated 81 Mg Tablet.) 81 mg PO DAILY [facility] Last Admin: 07/08/24 08:12 Dose: 81 mg Documented By: FORTUNATO Atorvastatin Calcium (Atorvastatin Calcium 80 Mg Tablet) 80 mg PO BEDTIME [facility] Last Admin: 07/08/24 21:06 Dose: 80 mg Documented By: BERTRAM Calcium Carbonate (Calcium Carbonate 750 Mg Tab.Chew) 750 mg PO Q4H PRN PRN Reason: Heartburn Dextrose (Dextrose 50 % 25 Gm/50 Ml Syringe) 25 gm IVPUSH Q15M PRN; Protocol PRN Reason: per Hypoglycemia Standing Ord. Docusate Sodium (Docusate Sodium 100 Mg Capsule) 100 mg PO BID [facility] Last Admin: 07/08/24 21:05 Dose: 100 mg Documented By: BERTRAM Ezetimibe (Ezetimibe 10 Mg Tablet) 10 mg PO DAILY [facility] Last Admin: 07/08/24 08:11 Dose: 10 mg Documented By: FORTUNATO Furosemide (Furosemide 40 Mg Tablet) 40 mg PO DAILY [facility]; Protocol Last Admin: 07/08/24 08:12 Dose: 40 mg Documented By: FORTUNATO Glucose (Glucose Gel 15 Gm Gel..Gram.) 15 gm PO Q15M PRN; Protocol PRN Reason: per Hypoglycemia Standing Ord. Heparin Sodium (Porcine) (Heparin Sodium,Porcine 5,000 Unit/Ml Vial) 5,000 unit SUBCUT Q8H [facility] Last Admin: 07/09/24 05:31 Dose: 5,000 unit Documented By: BERTRAM Hydromorphone HCl (Hydromorphone Hcl 0.5 Mg/0.5 Ml Syringe) 0.5 mg IVPUSH Q4H PRN; Protocol PRN Reason: Pain, Severe (Pain Scale 7-10) Acetaminophen (Ofirmev) 1,000 mg in 100 mls @ 400 mls/hr IV Q6H [facility] Last Infusion: 07/09/24 05:59 Dose: Infused Documented By: BERTRAM Insulin Human Lispro (Insulin Lispro 100 Unit/Ml 3 Ml Vial) 0 unit SUBCUT QIDACHS [facility]; Protocol Last Admin: 07/08/24 20:59 Dose: Not Given Documented By: BERTRAM Non-Admin Reason: pt used their last of their insulin pump Insulin Human Lispro (Insulin Lispro 100 Unit/Ml 3 Ml Vial) 5 unit SUBCUT QIDACHS [facility] Last Admin: 07/08/24 20:59 Dose: Not Given Documented By: BERTRAM Non-Admin Reason: pt used their last of their insulin pump Levothyroxine Sodium (Levothyroxine Sodium 125 Mcg Tablet) 125 mcg PO DAILY [facility] Last Admin: 07/08/24 08:12 Dose: 125 mcg Documented By: FORTUNATO Magnesium Hydroxide (Milk Of Magnesia 30 Ml Oral.Susp) 30 ml PO DAILY PRN PRN Reason: Constipation Melatonin (Melatonin 3 Mg Tablet) 6 mg PO BEDTIME PRN PRN Reason: Insomnia Metoprolol Tartrate (Metoprolol Tartrate 25 Mg Tablet) 25 mg PO BID [facility]; Protocol Last Admin: 07/07/24 21:53 Dose: Not Given Documented By: [email or web address] Non-Admin Reason: HOLD Oxycodone HCl (Oxycodone Hcl Immed Release 5 Mg Tablet) 5 mg PO Q4H PRN PRN Reason: Pain, Moderate(Pain Scale 4-6) Last Admin: 07/08/24 08:27 Dose: 5 mg Documented By: FORTUNATO Pantoprazole Sodium (Pantoprazole Sodium 20 Mg Tablet.Dr) 40 mg PO DAILY@0630 [facility] Last Admin: 07/09/24 05:31 Dose: 40 mg Documented By: BERTRAM Potassium Chloride (Potassium Chloride Er 20 Meq Tab.Er.Prt) 20 meq PO DAILY [facility] Last Admin: 07/08/24 08:12 Dose: 20 meq Documented By: FORTUNATO Sodium Chloride (0.9 % Sodium Chloride Flush 3 Ml Syringe) 3 ml IVFLUSH QSHIFT [facility] Last Admin: 07/08/24 21:06 Dose: 3 ml Documented By: BERTRAM <[facility] - Last Filed: 07/09/24 06:48> Labs CBC & Chem 7: 07/08/24 05:54 07/09/24 06:03 <[facility] - Last Filed: 07/09/24 06:48> Labs: Laboratory Results - last 24 hr 07/08/24 07/08/24 07/08/24 05:54 07:18 11:11 MCV 85.4 MCH 28.2 MCHC 33.0 RDW 15.8 Plt Count 260 MPV 11.7 Immature Gran % (Auto) 0.3 Neut % (Auto) 80.5 H Lymph % (Auto) 11.3 L [place] % (Auto) 7.6 Eos % (Auto) 0.1 Baso % (Auto) 0.2 Lymph # (Auto) 1.8 [place] # (Auto) 1.2 Eos # (Auto) 0.0 Baso # (Auto) 0.0 Abs Immat Gran (auto) 0.05 H Absolute Neuts (auto) 12.9 H Absolute Nucleated RBC 0.000 Nucleated RBC % (auto) 0.0 Anion Gap 11 L Estim Creat Clear Calc 56.4 Estimated GFR 56 POC Glucose 192 H 189 H Fasting Glucose 218 H Calcium 9.4 07/08/24 07/08/24 15:56 20:39 MCV MCH MCHC RDW Plt Count MPV Immature Gran % (Auto) Neut % (Auto) Lymph % (Auto) [place] % (Auto) Eos % (Auto) Baso % (Auto) Lymph # (Auto) [place] # (Auto) Eos # (Auto) Baso # (Auto) Abs Immat Gran (auto) Absolute Neuts (auto) Absolute Nucleated RBC Nucleated RBC % (auto) Anion Gap Estim Creat Clear Calc Estimated GFR POC Glucose 199 H 220 H Fasting Glucose Calcium [facility] Last [facility]: 07/09/24 06:48> Procedures Date of Service Date of Service: 07/09/24 <Nathan Mj - Last Filed: 07/09/24 06:48> 07/09/24 <Nikky Lowe PA-C - Last Filed: 07/09/24 07:50> 07/09/24 <Blas Shine MD - Last Filed: 07/09/24 08:02> Progress Note: A&P Assessment and plan (1) S/P right mastectomy: Status: Acute <Nahtan Barker - Last Filed: 07/09/24 06:48> Assessment and Plan: denies complaints mastectomy site clean, dry, flaps viable,flat, no hematoma JAREK drain with scanty output dry dressings reapplied she says she can go home today wound care instructions reinforced will go home with drain drain care [facility] dw case management manager will see in office next week to remove drain <Blas Shine MD - Last Filed: 07/09/24 08:02> Assessment and Plan: Patient is POD #2 s/p right simple mastectomy for lumpectomy and sentinel biopsy for 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 Doing well post op. JAREK drain with minimal sanguineous output, total 70mL overnight. Chest examine benign, dressings intact, no appreciable fullness. Continue current pain medications. continue OOB/ambulation. IS encouraged. If labs stable and patient doing well, possible discharge home with [facility] services today. Patient comfortable with plan. <Cary Mj - Last Filed: 07/09/24 06:48> Patient is POD #2 s/p right simple mastectomy for lumpectomy and sentinel biopsy for 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 Doing well post op. JAREK drain with minimal sanguineous output, total 70mL overnight. Chest examine benign, dressings intact, no appreciable fullness. Continue current pain medications. continue OOB/ambulation. IS encouraged. If labs stable and patient doing well, possible discharge home with [facility] services today. Patient comfortable with plan. Agree with above assessment and plan. POD #2 s/p right simple mastectomy for lumpectomy and sentinel biopsy for 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 No acute post op issues but does not feel ready for discharge to home this morning due to pain. JAREK drain with low serosanguineous output, mastectomy dressing intact, no appreciable fullness, visible flaps appear viable. Will return to change dressing later today. Incentive spiromter, increasing activity encouraged today, pain control. Possibly home later today or tomorrow with [facility] services if remains stable. <Nikky Lowe PA-C - Last Filed: 07/09/24 07:50> Time Spent With Patient Time: Total time managing care of this patient today ____ minutes. <[facility] - Last Filed: 07/09/24 06:48> Quality Stroke Does the patient have a stroke diagnosis?: No <[facility] - Last Filed: 07/09/24 06:48> VTE Prior VTE?: No <[facility] - Last Filed: 07/09/24 06:48> VTE Risk Level:: Medical - moderate - high <[facility] - Last Filed: 07/09/24 06:48> VTE Device Contraindication: N/A - Device Ordered <[facility] - Last Filed: 07/09/24 06:48> VTE Drug Contraindication: N/A - Med Ordered <[facility] - Last Filed: 07/09/24 06:48>
[2024-07-09 07:30] VITALS: BP 112/55; PULSE 58; RESP 12; TEMP 36.3; O2SAT 97
[2024-07-09 07:33] LABS: Glucose, Whole Blood 243 mg/dL (60-115)
--- NOTE | 2024-07-09 08:02 | W.MHC.F2F ---
Service Date Service Date: 07/09/24 Encounter Date of encounter: 07/09/24 Reasons for Services Signs and symptoms assessed: s/p simple mastectomy for breast cancer has JAREK drain Reason for prison: wound care and postoperative assessment and/or care Homebound: Leaving the home is medically contraindicated at this time without the asist of a device and/or another person due th the listed conditions above and below. Reason homebound: other (pt is S/P mastectomy, has drain) Certification: Based on the above findings, I certify that this patient is confined to the home and needs intermittent prison care, physical therapy and/or speech therapy, or continues to need occupational therapy. The patient is under my care, and I have initiated the establishment of the plan of care. The patient will be followed by a physician who will periodically review the plan of care. Time Spent With Patient Time: Total time managing care of this patient today ____ minutes.
[2024-07-09] MEDS: Insulin Lispro 100 UNIT/ML 3 ML VIAL SUBCUT ×2 (08:04→08:05)
[2024-07-09 08:05] LABS: Basophils Absolute Auto 0.1 X10*3/uL (0.0-0.2); Basophils Percent Auto 0.6 % (0-2); Eosinophils Absolute Auto 0.2 X10*3/uL (0.0-0.4); Eosinophils Percent Auto 2.1 % (0-4); Hematocrit 36.3 % (37.0-47.0); Hemoglobin 11.6 g/dl (12.0-16.0); Imm Gran Abs Auto 0.03 X10*3/uL (0.00-0.03); Imm Gran Pct Auto 0.3 % (0.0-0.4); Lymphocytes Percent Auto 32.2 % (20-40); MANUAL DIFF FLAG NO; Mean Corpuscular Hemoglobin 27.9 pg (27.0-33.0); Mean Corpuscular Volume 87.3 fL (80.0-98.0); Mean Platelet Volume 12.4 fL (9.4-12.3); Monocytes Absolute Auto 0.7 X10*3/uL (0.1-1.2); Monocytes Percent Auto 7.5 % (2-11); Neutrophils Absolute Auto 5.4 x10*3/uL (2.0-8.3); Neutrophils Percent Auto 57.3 % (45-73); Platelet Count 270 X10*3/uL (160-400); Red Blood Count 4.16 X10*6/uL (4.20-5.50); White Blood Count 9.4 X10*3/uL (4.8-10.8)
[2024-07-09] MEDS: Potassium Chloride ER 20 MEQ TAB.ER.PRT PO (08:05)
[2024-07-09] MEDS: Ezetimibe 10 MG TABLET PO (08:05)
[2024-07-09] MEDS: Aspirin Enteric Coated 81 MG TABLET.DR PO (08:06)
[2024-07-09] MEDS: Docusate Sodium 100 MG CAPSULE PO (08:06)
[2024-07-09] MEDS: Furosemide 40 MG TABLET PO (08:06)
[2024-07-09] MEDS: Levothyroxine Sodium 125 MCG TABLET PO (08:06)
--- NOTE | 2024-07-09 08:06 | HO.PM.IMPN ---
Subjective Subjective Date of Service: 07/09/24 Physical Exam Vital Signs: Vital Signs: Last Vital Signs Temp 97.3 F 07/09/24 07:30 Pulse 58 07/09/24 07:30 Resp 12 07/09/24 07:30 BP 112/55 L 07/09/24 07:30 Pulse Ox 97 07/09/24 07:30 O2 Del Method Room Air 07/09/24 07:30 O2 Flow Rate 1 07/08/24 07:15 BMI result Body Mass Index 30.6 Objective Data Active Medications Amlodipine Besylate (Amlodipine Besylate 5 Mg Tablet) 5 mg PO DAILY [facility]; Protocol Aspirin (Aspirin Enteric Coated 81 Mg Tablet.) 81 mg PO DAILY [facility] Last Admin: 07/08/24 08:12 Dose: 81 mg Documented By: FORTUNATO Atorvastatin Calcium (Atorvastatin Calcium 80 Mg Tablet) 80 mg PO BEDTIME [facility] Last Admin: 07/08/24 21:06 Dose: 80 mg Documented By: BERTRAM Calcium Carbonate (Calcium Carbonate 750 Mg Tab.Chew) 750 mg PO Q4H PRN PRN Reason: Heartburn Dextrose (Dextrose 50 % 25 Gm/50 Ml Syringe) 25 gm IVPUSH Q15M PRN; Protocol PRN Reason: per Hypoglycemia Standing Ord. Docusate Sodium (Docusate Sodium 100 Mg Capsule) 100 mg PO BID [facility] Last Admin: 07/08/24 21:05 Dose: 100 mg Documented By: BERTRAM Ezetimibe (Ezetimibe 10 Mg Tablet) 10 mg PO DAILY [facility] Last Admin: 07/08/24 08:11 Dose: 10 mg Documented By: FORTUNATO Furosemide (Furosemide 40 Mg Tablet) 40 mg PO DAILY [facility]; Protocol Last Admin: 07/08/24 08:12 Dose: 40 mg Documented By: FORTUNATO Glucose (Glucose Gel 15 Gm Gel..Gram.) 15 gm PO Q15M PRN; Protocol PRN Reason: per Hypoglycemia Standing Ord. Heparin Sodium (Porcine) (Heparin Sodium,Porcine 5,000 Unit/Ml Vial) 5,000 unit SUBCUT Q8H [facility] Last Admin: 07/09/24 05:31 Dose: 5,000 unit Documented By: BERTRAM Hydromorphone HCl (Hydromorphone Hcl 0.5 Mg/0.5 Ml Syringe) 0.5 mg IVPUSH Q4H PRN; Protocol PRN Reason: Pain, Severe (Pain Scale 7-10) Acetaminophen (Ofirmev) 1,000 mg in 100 mls @ 400 mls/hr IV Q6H [facility] Last Infusion: 07/09/24 05:59 Dose: Infused Documented By: BERTRAM Insulin Human Lispro (Insulin Lispro 100 Unit/Ml 3 Ml Vial) 0 unit SUBCUT QIDACHS [facility]; Protocol Last Admin: 07/08/24 20:59 Dose: Not Given Documented By: BERTRAM Non-Admin Reason: pt used their last of their insulin pump Insulin Human Lispro (Insulin Lispro 100 Unit/Ml 3 Ml Vial) 5 unit SUBCUT QIDACHS [facility] Last Admin: 07/08/24 20:59 Dose: Not Given Documented By: BERTRAM Non-Admin Reason: pt used their last of their insulin pump Levothyroxine Sodium (Levothyroxine Sodium 125 Mcg Tablet) 125 mcg PO DAILY [facility] Last Admin: 07/08/24 08:12 Dose: 125 mcg Documented By: FORTUNATO Magnesium Hydroxide (Milk Of Magnesia 30 Ml Oral.Susp) 30 ml PO DAILY PRN PRN Reason: Constipation Melatonin (Melatonin 3 Mg Tablet) 6 mg PO BEDTIME PRN PRN Reason: Insomnia Metoprolol Tartrate (Metoprolol Tartrate 25 Mg Tablet) 25 mg PO BID [facility]; Protocol Last Admin: 07/07/24 21:53 Dose: Not Given Documented By: [email or web address]-[email or web address] Non-Admin Reason: HOLD Oxycodone HCl (Oxycodone Hcl Immed Release 5 Mg Tablet) 5 mg PO Q4H PRN PRN Reason: Pain, Moderate(Pain Scale 4-6) Last Admin: 07/08/24 08:27 Dose: 5 mg Documented By: FORTUNATO Pantoprazole Sodium (Pantoprazole Sodium 20 Mg Tablet.Dr) 40 mg PO DAILY@0630 [facility] Last Admin: 07/09/24 05:31 Dose: 40 mg Documented By: BERTRAM Potassium Chloride (Potassium Chloride Er 20 Meq Tab.Er.Prt) 20 meq PO DAILY [facility] Last Admin: 07/08/24 08:12 Dose: 20 meq Documented By: FORTUNATO Sodium Chloride (0.9 % Sodium Chloride Flush 3 Ml Syringe) 3 ml IVFLUSH QSHIFT [facility] Last Admin: 07/08/24 21:06 Dose: 3 ml Documented By: BERTRAM Labs 07/08/24 05:54 07/09/24 06:03 Labs: Laboratory Results - last 24 hr 07/08/24 07/08/24 07/08/24 11:11 15:56 20:39 POC Glucose 189 H 199 H 220 H 07/09/24 07:29 POC Glucose 243 H Quality Stroke Does the patient have a stroke diagnosis?: No VTE Prior VTE?: No VTE Risk Level:: Medical - moderate - high VTE Device Contraindication: N/A - Device Ordered VTE Drug Contraindication: N/A - Med Ordered
[2024-07-09] MEDS: 0.9 % Sodium Chloride Flush 3 ML SYRINGE IVFLUSH (08:07)
[2024-07-09 08:16] LABS: Anion Gap 13 (12-20); Blood Urea Nitrogen 27 mg/dL (9-16); Calcium 8.9 mg/dL (8.4-10.2); Carbon Dioxide 27 mmol/L (22-29); Chloride 103 mmol/L (96-108); Creatinine Clr Calc Pharmacy 47.9; Estimated Glomerular Filt Rate 46; Glucose Random 247 mg/dL (60-115); Potassium 3.8 mmol/L (3.3-5.1); Sodium 139 mmol/L (135-145)
--- NOTE | 2024-07-09 08:26 | MHC.CM.PN ---
Addendum entered by Irena Hansen 07/09/24 08:43: Patient will stay with her sister at discharge [address] [place] [address]. NA notified Original Note: Patient is discharged today. She is s/p R Mastectomy. JAREK drain remains in place. [facility] has been referred for Post-Op management education. Patient has arranged for transportation home.
--- NOTE | 2024-07-09 10:15 | PM.DS ---
DS: Providers Provider Date of Service: 07/09/24 Date of admission: 07/07/24 09:14 Date of discharge: 07/09/24 Primary care physician: Dany Rubio MD Attending physician on admission: Blas Shine Consults: 07/07/24 17:30 Consult to Hospitalist Routine Comment: Consulting Provider: [facility] Reason For Exam: DM, CKD, HTN, cardiomyopathy Attending physician on discharge: Blas Shine DS: Diagnosis Discharge Diagnosis (1) S/P right mastectomy: Status: Acute DS: Summary Hospital Course Hospital Course: HPI AT ADMISSION: The patient is a 59-year-old female who had undergone lumpectomy and sentinel biopsy on the right breast last month for invasive ductal cancer. 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 In view of these margins, I explained to her that she needed wider margins and she preferred to undergo simple mastectomy instead of re-excision. She now presents for the above mentioned procedure. HOSPITAL COURSE: On 07/07/24, a right simple mastectomy was performed by Dr. Shine without immediate complications. The patient tolerated the procedure well. She was admitted for observation post operatively. She had an uneventful hospital course. She remained inpatient until POD #2 for pain control, increasing activity. On the day of discharge, she was tolerating a solid diet without nausea or vomiting. She had good pain control. She was ambulating without difficulty. She was hemodynamically stable with clean incisions with viable flaps. JAREK drain had serosanguineous output and was decreasing. She felt ready for discharge. She was discharged to home on 07/09/24 in stable condition with [facility] services for drain care. She is to follow up in the office in 2 weeks. Status at Discharge Functional status at discharge: independent ambulation Overall status at discharge: patient is progressing back to baseline Time Attestation Discharge Coordination Time (in mins): 35 Quality: Safe Use of Opioids Does Pt have an Active Cancer Diagnosis on the Problem List?: No Quality: Stroke Does the patient have a stroke diagnosis?: No Physical Exam Vital Signs: Vital Signs: Last Vital Signs Temp 97.3 F 07/09/24 07:30 Pulse 58 07/09/24 07:30 Resp 12 07/09/24 07:30 BP 112/55 L 07/09/24 07:30 Pulse Ox 97 07/09/24 07:30 O2 Del Method Room Air 07/09/24 07:30 O2 Flow Rate 1 07/08/24 07:15 BMI result Body Mass Index 30.6 Const: General: comfortable, no acute distress and alert Orientation/consciousness: patient oriented x3 Chest: Other: right mastectomy site clean, steris in place, flaps viable, JAREK drain with serosanguineous output, decreasing Resp: Effort & Inspection: normal respiratory effort Skin: General skin exam: no rashes or lesions noted Neuro: General: patient oriented x3 and moves all extremities DS: Data Data Completed and Pending Pending studies at discharge: Pending at discharge 07/07/24 11:27 Surgical [PTH] Routine Labs on day of discharge: Laboratory Results - last 24 hr 07/08/24 07/08/24 07/08/24 11:11 15:56 20:39 WBC RBC Hgb Hct MCV MCH MCHC RDW Plt Count MPV Immature Gran % (Auto) Neut % (Auto) Lymph % (Auto) Grainger % (Auto) Eos % (Auto) Baso % (Auto) Lymph # (Auto) Grainger # (Auto) Eos # (Auto) Baso # (Auto) Abs Immat Gran (auto) Absolute Neuts (auto) Absolute Nucleated RBC Nucleated RBC % (auto) Sodium Potassium Chloride Carbon Dioxide Anion Gap BUN Creatinine Estim Creat Clear Calc Estimated GFR POC Glucose 189 H 199 H 220 H Random Glucose Calcium 07/09/24 07/09/24 06:03 07:29 WBC 9.4 RBC 4.16 L Hgb 11.6 L Hct 36.3 L MCV 87.3 MCH 27.9 MCHC 32.0 RDW 16.0 Plt Count 270 MPV 12.4 H Immature Gran % (Auto) 0.3 Neut % (Auto) 57.3 Lymph % (Auto) 32.2 Grainger % (Auto) 7.5 Eos % (Auto) 2.1 Baso % (Auto) 0.6 Lymph # (Auto) 3.0 Grainger # (Auto) 0.7 Eos # (Auto) 0.2 Baso # (Auto) 0.1 Abs Immat Gran (auto) 0.03 Absolute Neuts (auto) 5.4 Absolute Nucleated RBC 0.000 Nucleated RBC % (auto) 0.0 Sodium 139 Potassium 3.8 Chloride 103 Carbon Dioxide 27 Anion Gap 13 BUN 27 H Creatinine 1.19 Estim Creat Clear Calc 47.9 Estimated GFR 46 POC Glucose 243 H Random Glucose 247 H Calcium 8.9 Discharge Plan Discharge Anticipated Discharge Date/Time: 07/09/24 08:03 Patient Disposition: Home Health Service Discharge Diagnosis: S/P mastectomy for breast cancer Referrals: Blas Shine MD [Physician] - 1 Week Po,Dany Grant MD [Primary Care Provider] - 1 Week Discharge Medications: New oxycodone 5 mg tablet 5 mg PO Q4H PRN (Reason: pain) Qty: 20 0RF Rx Instructions: Partial Fill upon patient request. Continued (DME) Dexcom G6 Sensor Device See Rx Instructions .ROUTE .MEDSUPPLY Qty: 3 11RF Rx Instructions: As directed every 10 days (DME) Dexcom G6 Transmitter Device See Rx Instructions .ROUTE .MEDSUPPLY Qty: 1 0RF Rx Instructions: As directed one every 3 months (DME) Dexcom G6 Disc Inspector Misc See Rx Instructions .ROUTE .MEDSUPPLY Qty: 1 0RF Rx Instructions: As directed (DME) FreeStyle Lite Strips Strip See Rx Instructions .ROUTE .COMPLEX Qty: 100 11RF Dose Instruction: DIRECTED THREE TIMES A DAY Rx Instructions: DIRECTED THREE TIMES A DAY (DME) blood pressure monitor [Blood Pressure Kit] Kit See Rx Instructions .ROUTE .MEDSUPPLY Qty: 1 0RF Rx Instructions: As directed rosuvastatin 40 mg tablet 40 mg PO BEDTIME Qty: 90 1RF (DME) pen needle, diabetic [Comfort EZ [address]] 32 gauge x 5/16 needle See Rx Instructions .Route Qty: 100 5RF Rx Instructions: As directed Jardiance 10 mg tablet 10 mg PO DAILY Qty: 30 5RF sennosides [senna] 8.6 mg Tablet 8.6 mg PO BEDTIME pantoprazole 40 mg Tablet,Delayed Release (Dr/Ec) 40 mg PO DAILY PRN (Reason: Acid Reflux) docusate sodium 100 mg Capsule 100 mg PO BEDTIME cholecalciferol (vitamin D3) [Vitamin D3] 50 mcg (2,000 unit) Capsule 50 mcg PO DAILY potassium chloride 20 mEq Tablet Extended Release 1 tab PO BID amlodipine 5 mg tablet 5 mg PO BEDTIME pyridoxine (vitamin B6) 100 mg tablet 100 mg PO DAILY gabapentin 100 mg capsule 100 mg PO BEDTIME PRN (Reason: Pain) levothyroxine 125 mcg tablet 125 mcg PO DAILY Qty: 30 11RF insulin aspart U-100 100 unit/mL solution See Rx Instructions subcut DAILY 30 Days Qty: 50 6RF Rx Instructions: Up to 150 units via pump subcut daily; furosemide 40 mg tablet 40 mg PO DAILY 90 Days Qty: 90 1RF metoprolol tartrate 25 mg tablet 25 mg PO BID 90 Days Qty: 180 2RF ezetimibe [Zetia] 10 mg tablet 10 mg PO DAILY Qty: 30 11RF (DME) Ketone Urine Test Strip See Rx Instructions .ROUTE .MEDSUPPLY Qty: 25 1RF Rx Instructions: As directed if glucose running over 250, nausea or vomiting check urine for ketones. If + seek medical attention (DME) insulin syringe-needle U-100 [BD Insulin Syringe Ultra-Fine] 1 mL 31 gauge x 5/16 syringe See Rx Instructions .ROUTE TID Qty: 100 4RF Rx Instructions: As directed use 3 times day aspirin [Adult Aspirin Regimen] 81 mg tablet,delayed release (DR/EC) 81 mg PO DAILY Qty: 30 11RF Discharge Orders: Discharge Order (Routine); Ordered 07/09/24 Ordered By: Blas Shine Diet: Advance to usual diet Activity on Discharge: No heavy lifting Stand Alone Forms: Patient Portal Discharge page Print Language: Amharic Activity Restrictions/Additional Instructions: empty JAREK drain twice a day If the incision area is tender, you may apply an ice pack for short intervals (No more than 20 minutes on, followed by at least 20 minutes off). Do not apply heat. Do not use creams, lotions, or topical antibiotics unless instructed to do so by your surgeon. These can cause infection or allergic reaction. No lifting more than 20 lbs Okay to shower Okay to change dressings with gauze No strenuous activities Call the office for follow-up next week- with Dr. Shine Call Your Doctor If: -Your temperature exceeds 101.5? F -You experience excessive pain or swelling -You have an unexpected reaction to medication -You have excessive bleeding -You experience continued vomiting/nausea -Your incision begins to separate -Your incision shows signs of infection such as increased redness, swelling, excessive pain, drainage (light blood or clear fluid is normal) or heat Care Plan Goals: return to baseline Health Concerns: breast cancer Plan of Treatment: wound care after mastectomy oral pain meds Assessment: doing well Patient Instructions: Buck-Abarca Drain Care (DC), Mastectomy (DC)
== END 2024-07-09 10:27 | disposition home health service (06) | DRG 362 ==
LOC: HO.EDOVER 14:53 → HO.S3 16:57
PROVIDERS: Physician Assistant Surgical; Student in an Organized Health Care Education/Training Program; Admitting Provider Surgery; PCP Internal Medicine; Visit Provider Surgery
PROC: 0HTT0ZZ Resection of Right Breast, Open Approach (ICD-10-PCS; CPT 19303; principal; 2024-07-07 10:30)
DX: C50.911 Malignant neoplasm of unspecified site of right female breast (principal); E11.22 Type 2 diabetes mellitus with diabetic chronic kidney disease; E03.9 Hypothyroidism, unspecified; G89.18 Other acute postprocedural pain; I12.9 Hypertensive chronic kidney disease with stage 1 through stage 4 chronic kidney disease, or unspecified chronic kidney disease; N18.30 Chronic kidney disease, stage 3 unspecified; K21.9 Gastro-esophageal reflux disease without esophagitis; I25.10 Atherosclerotic heart disease of native coronary artery without angina pectoris; Z95.1 Presence of aortocoronary bypass graft; I25.5 Ischemic cardiomyopathy; Z96.41 Presence of insulin pump (external) (internal); Z79.4 Long term (current) use of insulin; Z79.82 Long term (current) use of aspirin; Z79.890 Hormone replacement therapy; Z79.899 Other long term (current) drug therapy
CPT/HCPCS: 19303; 36415; 80048; 82947; 85025; 86850; 86900; 86901; 88307; 99221; J0131; J0665; J0690; J1171; J1644; J2003; J2405; J2704; J3010

== ENCOUNTER → 2024-07-07 09:14 | Outpatient (BNV) | payer OTHER, SELFPAY ==
[2024-06-08 11:23] VITALS: BP 100/66; BP 104/60; BP 132/58; BMI 31.3
== END ==
PROVIDERS: Admitting Provider Surgery; PCP Internal Medicine; Visit Provider Student in an Organized Health Care Education/Training Program
DX: Z90.11 Acquired absence of right breast and nipple (principal)
CPT/HCPCS: 99222

== ENCOUNTER 2024-07-16 10:34 | Outpatient (AMB) | payer OTHER, SELFPAY ==
[2024-06-08 11:23] VITALS: BP 100/66; BP 104/60; BP 132/58; BMI 31.3
--- NOTE | 2024-07-16 10:35 | MHC.OFFVIS ---
Vital Signs 07/16/24 10:39 Height 5 ft 2 in Weight 173 lb 11.588 oz BMI 31.8 Intake Visit Reasons: s/p Total mastectomy Intake Note: This patient presents for post-op assessment status post simple mastectomy. Pt c/o; reports the output from the drain has been at 15 mL, reports pain surgical site. Arboreal Scientist Required: No Accompanied by: Other Relationship Allergies dulaglutide [From TRULICITY] Allergy (Unknown, Verified 07/16/24 10:42) DIARRHEA AND VOMITTING liraglutide [From VICTOZA] Allergy (Unknown, Verified 07/16/24 10:42) DIARRHEA AND VOMITTING, vomiting and diahrrea HPI HPI s/p Total mastectomy: Details: She had undergone simple mastectomy of the right breast because of close margins after lumpectomy for her invasive ductal cancer . This was done on 07/07/2024 She has a drain in place and she is here to have this removed. She denies any significant complaints. She is doing well overall. [facility] Medical History History of MRSA infection Port-A-Cath in place Hypokalemia Thyroid disease Insulin pump in place Numbness Cough SOB (shortness of breath) On beta suzanne at home CHF (congestive heart failure) History of chemotherapy Neuropathy Myocardial infarction Breast cancer (~09/2023) Preoperative cardiovascular examination Invasive ductal carcinoma of breast Breast cancer, right Breast mass, right Abnormal finding on mammography Abnormal echocardiogram Abnormal stress ECG with treadmill Hearing deficit CKD (chronic kidney disease) stage 3, GFR 30-59 ml/min Low back pain Bacterial conjunctivitis of both eyes Urine incontinence Well woman exam Pyelonephritis Left navicular fracture of foot Vitamin B12 deficiency Thyroid nodule History of Clostridium difficile infection Coronary artery disease Hypercholesterolemia Depression Kidney stone Carpal tunnel syndrome Arthritis 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 Vitamin D deficiency Essential hypertension Type 2 diabetes mellitus with hyperglycemia Surgical History H/O mastectomy (~07/07/24) History of lumpectomy (~05/2024) History of coronary artery stent placement History of biopsy Hx of colonoscopy S/P triple vessel bypass Hx of toe surgery Hx of thyroidectomy History of renal stent Hx of section Hx of myomectomy Hx of tonsillectomy Family History Father DM (diabetes mellitus) Hypertension High cholesterol Spina bifida Kidney stone CAD (coronary artery disease) Mother DM (diabetes mellitus) Hypertension High cholesterol CAD (coronary artery disease) Bipolar 1 disorder Maternal Aunt Lung cancer Maternal Grandfather Lung cancer Other Mental health disorder Social History Household Members: None Household Members Other:: daughter Housing: Apartment Are you a primary healthcare economics manager to a significant other at home: No Do you presently have visiting nurse or other home services: No Alcohol intake: never Patient Tobacco Use Status: Never used Tobacco e-Cigarette/Vaping Use: Never Used Second Hand Smoke Exposure: No service: No Current occupational status: employed Cognitive needs: No Hearing needs: No Vision needs: Yes Female Reproductive History Menstrual Age of Menarche: 11 Review of Systems Const Denies chills and Denies fever(s) Card Denies chest pain Resp Denies cough GI Denies abdominal pain Physical Exam Const General: comfortable and no acute distress Chest Other: Mastectomy site well healed, not infected, flaps viable and healthy looking, JAREK drain in place with scanty output Assessment & Plan Assessment & Plan (1) Invasive ductal carcinoma of breast: Comment: October 2023 right breast, right breast mastectomy June 2024 Code(s): C50.919 - Malignant neoplasm of unspecified site of unspecified female breast Category: Medical Plan: She had a simple mastectomy because of close margins for DCIS on the lumpectomy specimen. She had also undergone neoadjuvant chemotherapy treatment. She is doing very well. I removed her JAREK drain. Her mastectomy site is well healed. Her final path report is a yT2 N0 invasive ductal carcinoma, ER positive, DE negative, HER2 negative. She is to continue to follow up with Dr. Baker of Oncology I will see her again in the office in about a month. Coding Level of Care Code Global (81287) Diagnoses Invasive ductal carcinoma of breast C50.919
[2024-07-16 10:39] VITALS: BMI 31.8
--- OUTSIDE RECORDS SUMMARY | 2024-07-16 12:26 | XMS_ITS | Clinical Summary ---
Author Organization [facility] Address [address] [place] [address] [place] [address] Phone Care Team Providers Care Nuclear Waste Process Operator Name Role Phone Dany Rubio MD Primary Care Provider [phone] Allergies Active Allergy Reactions Criticality Noted Date [...] g/dl PVNMA 03/14/2020 us [facility]version [facility] [id number] LICITED RESULTS Final Result PVNMA from Last 3 Months or Most Recently Relevant to Health Maintenance Care Teams Nuclear Waste Process Operator Relationship Specialty Start Date End Date Dany Rubio MD [facility] [place] [id number] [place] PCP - General 05/30/20
== END 2024-07-16 10:58 | disposition home or self-care (01) ==
PROVIDERS: PCP Internal Medicine; Visit Provider Surgery
DX: C50.919 Malignant neoplasm of unspecified site of unspecified female breast (principal)
CPT/HCPCS: 99024

== ENCOUNTER → 2024-07-16 10:34 | Outpatient (BNVA) | payer OTHER, SELFPAY ==
[2024-06-08 11:23] VITALS: BP 100/66; BP 104/60; BP 132/58; BMI 31.3
== END ==
PROVIDERS: PCP Internal Medicine; Visit Provider Surgery
DX: C50.911 Malignant neoplasm of unspecified site of right female breast (principal); Z90.11 Acquired absence of right breast and nipple
CPT/HCPCS: 99212

== ENCOUNTER 2024-07-21 15:34 | Outpatient (AMB) | payer MEDICAID, SELFPAY ==
[2024-06-08 11:23] VITALS: BP 100/66; BP 104/60; BP 132/58; BMI 31.3
--- NOTE | 2024-07-21 16:13 | A.OFFPC_ITS ---
Vital Signs 07/21/24 16:15 Height 5 ft 2 in Weight 168 lb 6 oz BMI 30.8 BP 110/70 Blood Pressure Location Lt brachial Position Sitting Pulse 75 Pulse Source Pulse Oximeter Temp 97.3 F Temp Source Temporal Artery Scan Pulse Oximetry (%) 99 Oxygen Delivery Method Room Air Intake Visit Reasons: DM, R breast cancer , cholesterol Intake Note: Patient is here to follow up on DM, Right breast cancer, Cholesterol. Director Learning And Development Required: No Information Interpreted: non-clinical & clinical Hardness Inspector: Present Accompanied by: Daughter Allergies dulaglutide [From TRULICITY] Allergy (Unknown, Verified 07/21/24 16:14) DIARRHEA AND VOMITTING liraglutide [From VICTOZA] Allergy (Unknown, Verified 07/21/24 16:14) DIARRHEA AND VOMITTING, vomiting and diahrrea Tobacco use date assessed: 07/21/24 Dental Screening Dental Screen Date: 07/21/24 Did you have a dental visit in the last 12 months?: No Did you have a dental problem in the last 6 months where you did not have access to dental care?: No Was dental information given to patient?: No [facility] Medical History History of MRSA infection Port-A-Cath in place Hypokalemia Thyroid disease Insulin pump in place Numbness Cough SOB (shortness of breath) On beta suzanne at home CHF (congestive heart failure) History of chemotherapy Neuropathy Myocardial infarction Breast cancer (~09/2023) Preoperative cardiovascular examination Invasive ductal carcinoma of breast Breast cancer, right Breast mass, right Abnormal finding on mammography Abnormal echocardiogram Abnormal stress ECG with treadmill Hearing deficit CKD (chronic kidney disease) stage 3, GFR 30-59 ml/min Low back pain Bacterial conjunctivitis of both eyes Urine incontinence Well woman exam Pyelonephritis Left navicular fracture of foot Vitamin B12 deficiency Thyroid nodule History of Clostridium difficile infection Coronary artery disease Hypercholesterolemia Depression Kidney stone Carpal tunnel syndrome Arthritis 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 Vitamin D deficiency Essential hypertension Type 2 diabetes mellitus with hyperglycemia Surgical History H/O mastectomy (~07/07/24) History of lumpectomy (~05/2024) History of coronary artery stent placement History of biopsy Hx of colonoscopy S/P triple vessel bypass Hx of toe surgery Hx of thyroidectomy History of renal stent Hx of section Hx of myomectomy Hx of tonsillectomy Family History Father DM (diabetes mellitus) Hypertension High cholesterol Spina bifida Kidney stone CAD (coronary artery disease) Mother DM (diabetes mellitus) Hypertension High cholesterol CAD (coronary artery disease) Bipolar 1 disorder Maternal Aunt Lung cancer Maternal Grandfather Lung cancer Other Mental health disorder Social History Household Members: None Household Members Other:: daughter Housing: Apartment Are you a primary client care consultant to a significant other at home: No Do you presently have visiting nurse or other home services: No Alcohol intake: never Patient Tobacco Use Status: Never used Tobacco e-Cigarette/Vaping Use: Never Used Second Hand Smoke Exposure: No service: No Current occupational status: employed Cognitive needs: No Hearing needs: No Vision needs: Yes Female Reproductive History Menstrual Age of Menarche: 11 Questionnaire PHQ-9 Over the last 2 weeks, how often have you been bothered by any of the following problems? 1. Little interest or pleasure in doing things: not at all 2. Feeling down, depressed, or hopeless: not at all 3. Trouble falling or staying asleep, or sleeping too much: not at all 4. Feeling tired or having little energy: not at all 5. Poor appetite or overeating: not at all 6. Feeling bad about yourself - or that you are a failure or have let yourself or your family down: not at all 7. Trouble concentrating on things, such as reading the newspaper or watching television: not at all 8. Moving or speaking so slowly that other people could have noticed. Or the opposite - being so fidgety or restless that you have been moving around a lot more than usual: not at all 9. Thoughts that you would be better off or of hurting yourself in some way: not at all Total score: 0 Depression Screening Interpretation: Negative Depression Screening Done: Yes Source: Developed by Drs. Suleiman John, Addie Reeves, Tonny Ramos and colleagues, with an educational dmitriy from [employer]. Thrive Questionnaire Date Thrive assessed: 07/21/24 I am a: Patient What is your living situation today?: I have a steady place to live Within the past 12 months, did the food you bought not last and you didn't have the money to get more?: Sometimes True Within the past 12 months, did you worry whether your food would run out before you got money to buy more?: Sometimes True Do you have trouble paying for medicines?: Yes Do you have trouble getting transportation to medical appointments?: No Do you have trouble paying your heating and electricity bill?: No Do you have trouble taking care of your child, family member or friend?: I choose not to answer this question Do you have trouble with day-to-day activities such as bathing, preparing meals, shopping, managing finances, etc.?: I choose not to answer this question Are you currently unemployed and looking for a job?: No Are you interested in more education?: I choose not to answer this question Currently or been in a relationship where the following occur: No concerns reported THRIVE Score: 2 AUDIT C Alcohol Use Questionnaire (AUDIT-C) 1. How often do you have a drink containing alcohol?: Never Total Score: 0 HERB-7 AMB Questionnaire HERB-7 Date HERB - 7 assessed: 07/21/24 Feeling nervous, anxious, or on edge: 0 = Not at all Not being able to stop or control worryin = Not at all Worrying too much about different things: 0 = Not at all Trouble relaxin = Not at all Being so restless that it is hard to sit still: 0 = Not at all Becoming easily annoyed or irritable: 0 = Not at all Feeling afraid as if something awful might happen: 0 = Not at all Total HERB-7 score (0-4 normal; 5-9 mild; 10-14 moderate; 15-21 severe): 0 Source: Developed by Drs. Suleiman John, Addie Reeves, Tonny Ramos and colleagues, with an educational dmitriy from [employer]. Physical exam (Primary Care) Vital Signs: Last Vital Signs Temp 97.3 F 07/21/24 16:15 Pulse 75 07/21/24 16:15 BP 110/70 07/21/24 16:15 Pulse Ox 99 07/21/24 16:15 Oxygen Delivery Method Room Air 07/21/24 16:15 BMI result Body Mass Index 30.8 Tobacco/Smoking Status: Tobacco use Status Tobacco use date assessed 07/21/24 07/21/24 16:15 Patient Tobacco Use Status Never used Tobacco 07/21/24 16:13 e-Cigarette/Vaping Use Never Used 07/21/24 16:13 PHQ-9: PHQ-9 Score PHQ-9: Total score 0 07/21/24 16:13 Depression Screening Interpretation: Negative Thrive Assessment: Date of Thrive Assessment Date Thrive assessed 07/21/24 07/21/24 16:13 Currently or been in a relationship where the following occur: No concerns reported Const General: alert; No acute distress Eyes Conjunctivae: conjunctivae normal Resp Auscultation: clear to auscultation bilaterally Cardio Rate: regular rate Rhythm: regular rhythm GI Inspection: Yes normal to inspection Extrem General: Yes normal to inspection and No edema Coding Level of Care Code Est Pt Level 4 (19816) Complex EM visit Add On G2211 Diagnoses S/P right mastectomy Z90.11 Ischemic cardiomyopathy I25.5 Tubular adenoma of colon D12.6 Gastroesophageal reflux disease, unspecified whether esophagitis present K21.9 Esophagitis presence: esophagitis presence not specified Invasive ductal carcinoma of breast C50.919 CKD (chronic kidney disease) stage 3, GFR 30-59 ml/min N18.30 Coronary artery disease involving [place] coronary artery of [place] heart without angina pectoris I25.10 Coronary Disease-Associated Artery/Lesion type: [place] artery [place] vs. transplanted heart: [place] heart Associated angina: without angina Type 2 diabetes mellitus with hyperglycemia, without long-term current use of insulin E11.65 Diabetes mellitus long term care social worker insulin use: without long-term use Hypercholesterolemia E78.00 Postsurgical hypothyroidism E89.0 Essential hypertension I10 Assessment & Plan Assessment & Plan (1) S/P right mastectomy: Comment: 2024 Code(s): Z90.11 - Acquired absence of right breast and nipple Category: Surgical Plan: Continue to follow-up with the surgeon and Hematology-Oncology for breast cancer (2) Ischemic cardiomyopathy: Code(s): I25.5 - Ischemic cardiomyopathy Category: Medical Plan: Continue to follow-up with cardiology continue with present medication (3) Tubular adenoma of colon: Code(s): D12.6 - Benign neoplasm of colon, unspecified Category: Medical Plan: Patient is reminded about colonoscopy. (4) GERD (gastroesophageal reflux disease): Code(s): K21.9 - Gastro-esophageal reflux disease without esophagitis Category: Medical Qualifiers: Esophagitis presence: esophagitis presence not specified Qualified Code(s): K21.9 - Gastro-esophageal reflux disease without esophagitis Plan: Avoid the foods that causes that usually spicy foods, tomato products, juices, coffee, soda and foods that your sensitive to. After eating do not lie down, allow 3-4 hours before in lie down. And keep the head of bed above 30 degrees to avoid the acid from going up. (5) Invasive ductal carcinoma of breast: Comment: October 2023 right breast, right breast mastectomy June 2024 Code(s): C50.919 - Malignant neoplasm of unspecified site of unspecified female breast Category: Medical Plan: Continue to follow-up with Hematology-Oncology and routine mammograms to be done for the left breast. (6) CKD (chronic kidney disease) stage 3, GFR 30-59 ml/min: Code(s): N18.30 - Chronic kidney disease, stage 3 unspecified Category: Medical Plan: Avoid NSAIDs continue with well hydration (7) Coronary artery disease: Comment: Catheterization stent placement September 2014, CABG 12/2021 Code(s): I25.10 - Atherosclerotic heart disease of [place] coronary artery without angina pectoris Category: Medical Qualifiers: Coronary Disease-Associated Artery/Lesion type: [place] artery [place] vs. transplanted heart: [place] heart Associated angina: without angina Qualified Code(s): I25.10 - Atherosclerotic heart disease of [place] coronary artery without angina pectoris Plan: Control the cholesterol, weight, blood pressure, diabetes on aspirin (8) Type 2 diabetes mellitus with hyperglycemia: Code(s): E11.65 - Type 2 diabetes mellitus with hyperglycemia Category: Medical Qualifiers: Diabetes mellitus long-term insulin use: without long term care social worker use Qualified Code(s): E11.65 - Type 2 diabetes mellitus with hyperglycemia Plan: Decrease the amount of carbohydrate intake, pasta, bread, rice and potatoes are all sugar and that is aside from all the sweet stuff, remember that fruits are good but they are Sweet also. Patient is being seen by Endocrinology and on insulin pump Jardiance 10 mg once a day (9) Hypercholesterolemia: Code(s): E78.00 - Pure hypercholesterolemia, unspecified Category: Medical Plan: Avoid fried foods, chicken skin, eggs, butter margarine, pastries and meat. Be it pork or beef they have a lot of cholesterol LDL goal of less than 70 and triglyceride of less than 150 on rosuvastatin 40 mg once a day Zetia 10 mg once a day (10) Postsurgical hypothyroidism: Code(s): E89.0 - Postprocedural hypothyroidism Category: Medical Plan: Continue with thyroid medication (11) Essential hypertension: Code(s): I10 - Essential (primary) hypertension Category: Medical Plan: Continue with blood pressure medication on metoprolol 25 mg twice a day amlodipine 5 mg once a day Plan History of Present Illness The patient is a 59-year-old female presenting for a follow-up related to multiple pre-existing conditions, especially focusing on diabetes and breast cancer aftercare. Her diabetes control remains inadequate with a Hemoglobin A1c of 8.8%, routinely facing issues with diet-induced sugar fluctuations while on an insulin pump. Essential Hypertension and coronary artery disease are managed pharmacologically, though recent concerns of medication-related edema have prompted considerations for change. She continues to receive oncological follow- up for her breast cancer following surgical intervention in June 2024, with no recurrence noted. Renal function remains stable though impaired, demanding cautious monitoring. Health Maintenance - Routine mammograms up to date as of March 2024 - Colonoscopy last performed in 2016, scheduled for follow-up - No flu vaccination received, recommended - Lifestyle modification discussions centered on diet, emphasizing fine-tuning carbohydrate intake for improved glycemic control and adopting heart-healthy diet principles given coronary artery disease and hyperlipidemia. Social History - Reports a high intake of carbohydrates and preference for sweet foods despite being counseled on necessary dietary modifications for better diabetes control. - Previous athletic lifestyle including running and playing sports, currently no regular exercise regime. - Experiences peripheral edema affecting mobility. - Indicates a [place] cultural background with dietary preferences including rice and meats. Review of Systems - Cardiovascular: Reports edema, possibly medication-related. - Musculoskeletal: Denies recent physical activity, expressing difficulty due to leg pain. - Endocrinological: Reports variable blood glucose levels. - Gastrointestinal: Denies GERD symptoms at present. Physical Exam Results - Labs: Hemoglobin A1c 8.8%, GFR 46, mild anemia with hemoglobin at 11.6g/dL. - Imaging: Left ventricular ejection fraction 45-50% on most recent echocardiogram. - Tests: TSH conducted in January, elevated at 66, requiring reevaluation. Plan The patient's management plan involves a comprehensive approach to her chronic conditions. Diabetes Mellitus will continue with insulin pump therapy, emphasizing dietary carbohydrate control. Transition from amlodipine to valsartan is being contemplated to address peripheral edema, while avoiding nephrotoxicity. Cardiovascular follow-up includes continued use of antiplatelet and lipid-lowering agents, importantly keeping track of ischemic cardiomyopathy progression. Breast health will be monitored with routine imaging, along with oncologist check-ins. Addressing anemia involves consideration of recent surgical recovery. Encouragement towards improved lifestyle choices and regular physical activity is paramount, considering her overall health risks and quality of life. Patient was informed and verbally consented to the use of an ambient scribe for clinic note documentation during this visit. Discussion Notes I discussed at length with the patient the state of her chronic medical conditions, focusing on the implications of poorly controlled diabetes on her renal and cardiovascular health. We reviewed her medication regimen, specifically the side effect of edema from amlodipine and potential benefits of switching back to valsartan, while considering the renal function. There was a thorough explanation of the need for dietary modifications and regular exercise to enhance her diabetes control and reduce her cardiovascular risk. We also reviewed her cancer recovery status, ensuring regular oncologic surveillance. I stressed the importance of engaging with health maintenance activities, including flu vaccination and scheduling of a pending colonoscopy. Finally, logistical issues surrounding scheduled blood work were addressed, ensuring patient access to necessary test requests and understanding. Patient Instructions - Maintain use of insulin pump and jardiance for diabetes management. - Follow carbohydrate-controlled diet; avoid sugars, monitor portion sizes. - Monitor blood pressure weekly, report consistent abnormalities. - Return for blood tests in two weeks post medication switch. - Monitor for changes in edema after adjusting antihypertensive medication. - Schedule pending colonoscopy and obtain flu vaccine at earliest convenience. - Engage in regular physical movement as tolerable aiming for cardiac and general health benefits. - Alert medical caregivers if experiencing serious symptoms, including severe fatigue and unusual swelling. Orders: Orders AMB Hemoglobin A1c Today E11.65 - Type 2 diabetes mellitus with hyperglycemia B Type Natriuretic Peptide Today I25.5 - Ischemic cardiomyopathy Medications: New valsartan 80 mg PO DAILY 90 tabs 0RF I10 - Essential (primary) hypertension
[2024-07-21 16:15] VITALS: BP 110/70; PULSE 75; TEMP 36.3; O2SAT 99; BMI 30.8
--- OUTSIDE RECORDS SUMMARY | 2024-07-21 19:37 | XMS_ITS | Clinical Summary ---
Author Organization [facility] Address [address] [place] [address] Phone Care Team Providers Care Fiberglass Container Winding Operator Name Role Phone Dany Rubio MD Primary Care Provider [phone] Allergies Active Allergy Reactions Criticality Noted Date [...] g/dl PVNMA 03/14/2020 us [facility] [id number] LICITED RESULTS Final Result PVNMA from Last 3 Months or Most Recently Relevant to Health Maintenance Care Teams Fiberglass Container Winding Operator Relationship Specialty Start Date End Date Dany Rubio MD [facility] DE [id number] [place] PCP - General 05/30/20
== END 2024-07-21 17:20 | disposition home or self-care (01) ==
PROVIDERS: PCP Internal Medicine; Visit Provider Internal Medicine
DX: I12.9 Hypertensive chronic kidney disease with stage 1 through stage 4 chronic kidney disease, or unspecified chronic kidney disease (principal); N18.30 Chronic kidney disease, stage 3 unspecified; E11.65 Type 2 diabetes mellitus with hyperglycemia; C50.919 Malignant neoplasm of unspecified site of unspecified female breast; I25.5 Ischemic cardiomyopathy; Z90.11 Acquired absence of right breast and nipple; D12.6 Benign neoplasm of colon, unspecified; K21.9 Gastro-esophageal reflux disease without esophagitis; I25.10 Atherosclerotic heart disease of native coronary artery without angina pectoris; E78.00 Pure hypercholesterolemia, unspecified; E89.0 Postprocedural hypothyroidism

== ENCOUNTER → 2024-07-21 15:34 | Outpatient (BNVA) | payer MEDICAID, SELFPAY ==
[2024-06-08 11:23] VITALS: BP 100/66; BP 104/60; BP 132/58; BMI 31.3
== END ==
PROVIDERS: PCP Internal Medicine; Visit Provider Internal Medicine
DX: I25.5 Ischemic cardiomyopathy (principal); D12.6 Benign neoplasm of colon, unspecified; K21.9 Gastro-esophageal reflux disease without esophagitis; I25.10 Atherosclerotic heart disease of native coronary artery without angina pectoris; I12.9 Hypertensive chronic kidney disease with stage 1 through stage 4 chronic kidney disease, or unspecified chronic kidney disease; E11.22 Type 2 diabetes mellitus with diabetic chronic kidney disease; N18.30 Chronic kidney disease, stage 3 unspecified; E11.65 Type 2 diabetes mellitus with hyperglycemia; E78.00 Pure hypercholesterolemia, unspecified; E89.0 Postprocedural hypothyroidism; C50.919 Malignant neoplasm of unspecified site of unspecified female breast; Z90.11 Acquired absence of right breast and nipple
CPT/HCPCS: 99212

== ENCOUNTER 2024-08-03 12:32 | Outpatient (AMB) | payer MEDICAID, SELFPAY ==
[2024-06-08 11:23] VITALS: BP 100/66; BP 104/60; BP 132/58; BMI 31.3
[2024-08-03 12:39] VITALS: BMI 31.0
--- NOTE | 2024-08-03 12:39 | MHC.AMNUTRGE ---
VS Expanded 08/03/24 12:39 08/11/24 13:10 Height 5 ft 2 in 5 ft 2 in Weight 169 lb 8.568 oz 170 lb BMI 31.0 31.1 Intake Visit Reasons: DM Allergies dulaglutide [From TRULICITY] Allergy (Unknown, Verified 07/21/24 16:14) DIARRHEA AND VOMITTING liraglutide [From VICTOZA] Allergy (Unknown, Verified 07/21/24 16:14) DIARRHEA AND VOMITTING, vomiting and diahrrea Nutrition Presentation Details: Pt presents for MNT for T2DM on Tandem insulin pump Pt had right mastectomy 06/2024 Pt reports feeling well, doing well, no questions or concerns expressed at this angela typical meal intake B: coffee with cream with bread (white) or egg with scrambled egg L: sandwich ham/cheese, water dinner: rice/meat/beans, water or juice snack :fruit physical activity:ADL etoh/smoking:denies food frequency fruits: 1-2/d dairy: 2 x/d (mostly cheese) fish: 0-1/xwk veg: starchy veg fried foods: uses air fryer pstries and similar 1/d BS Monitoring Most Recent Diabetes Results: Creatinine 0.94 mg/dL (0.5-1.4) 07/27/24 Blood Urea Nitrogen 13 mg/dL (9-16) 07/27/24 Sodium 143 mmol/L (135-145) 07/27/24 Potassium 3.8 mmol/L (3.3-5.1) 07/27/24 Chloride 109 mmol/L (96-108) H 07/27/24 Carbon Dioxide 29 mmol/L (22-29) 07/27/24 Calcium 9.5 mg/dL (8.4-10.2) 07/27/24 AST 25 U/L (5-31) 07/27/24 ALT 21 U/L (0-31) 07/27/24 Total Protein 8.0 g/dL (6.5-8.0) 07/27/24 Albumin 4.3 g/dL (3.5-5.0) 07/27/24 QGL-[id number]-Oo.Jeor Equation Height: 5 ft 2 in Weight: 170 lb Resting Metabolic Rate: 1298.39 Calculated Activity Level: Mild Activity Calories Needed to Maintain Weight: 1785.29 Diagnosis Nutrition problem #1: other (limited intake of calcium rich foods in diet) [facility] Medical History History of MRSA infection Port-A-Cath in place Hypokalemia Thyroid disease Insulin pump in place Numbness Cough SOB (shortness of breath) On beta suzanne at home CHF (congestive heart failure) History of chemotherapy Neuropathy Myocardial infarction Breast cancer (~09/2023) Preoperative cardiovascular examination Invasive ductal carcinoma of breast Breast cancer, right Breast mass, right Abnormal finding on mammography Abnormal echocardiogram Abnormal stress ECG with treadmill Hearing deficit CKD (chronic kidney disease) stage 3, GFR 30-59 ml/min Low back pain Bacterial conjunctivitis of both eyes Urine incontinence Well woman exam Pyelonephritis Left navicular fracture of foot Vitamin B12 deficiency Thyroid nodule History of Clostridium difficile infection Coronary artery disease Hypercholesterolemia Depression Kidney stone Carpal tunnel syndrome Arthritis 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 Vitamin D deficiency Essential hypertension Type 2 diabetes mellitus with hyperglycemia Surgical History H/O mastectomy (~07/07/24) History of lumpectomy (~05/2024) History of coronary artery stent placement History of biopsy Hx of colonoscopy S/P triple vessel bypass Hx of toe surgery Hx of thyroidectomy History of renal stent Hx of section Hx of myomectomy Hx of tonsillectomy Family History Father DM (diabetes mellitus) Hypertension High cholesterol Spina bifida Kidney stone CAD (coronary artery disease) Mother DM (diabetes mellitus) Hypertension High cholesterol CAD (coronary artery disease) Bipolar 1 disorder Maternal Aunt Lung cancer Maternal Grandfather Lung cancer Other Mental health disorder Social History Household Members: None Household Members Other:: daughter Housing: Apartment Are you a primary child care supervisor to a significant other at home: No Do you presently have visiting nurse or other home services: No Alcohol intake: never Patient Tobacco Use Status: Never used Tobacco e-Cigarette/Vaping Use: Never Used Second Hand Smoke Exposure: No service: No Current occupational status: employed Cognitive needs: No Hearing needs: No Vision needs: Yes Female Reproductive History Menstrual Age of Menarche: 11 Assessment & Plan Assessment & Plan (1) Type 2 diabetes mellitus with diabetic polyneuropathy: Code(s): E11.42 - Type 2 diabetes mellitus with diabetic polyneuropathy Category: Medical Plan: Wt: 77 Kg ( 08/11 ) Est kcal needs as per MSJ: 1800 (40% carb, 30% protein/fat) Est fluid needs as per 25-30 ml/d: 2300 Est prot per day as per 1 g/kg bw: 77 Recommend fiber intake : 8-10 g per day and gradually increase to 25-28 g per day for women and 35-38 g for men or as tolerated Recommend sodium intake per day : less than 2000 mg Educated patient on: ( R = reviewed V = verbalizes understanding N/R = needs review N/A = not applicable Food sources of carbohydrate, adequate serving sizes and its role in various health conditions: R V Differences between complex carbohydrates a simple carbohydrates, role of fiber in diet: R V Lean protein sources of foods: R V Differences between types of fats and role in diet (mono on saturated fat fatty acids, saturated fatty acids, trans fats): R Food sources of sodium in salt and healthy modifications for heart health in kidney health: R V R/V Vitamins and minerals: R V N/R Healthy plate method concept: R V Physical activity: Benefits a precaution: R V N/R Hypoglycemia protocol (rule of 15): R V N/R Dietary prevention of Hyperglycemia: R V R/V Patient Instructions: Follow healthy plate method at dinner including calcium rich foods (kale, edamame, tofu , sesame seeds) Choose whole grain foods, watch portion sizes and total carb at dinner carbs to 60 g Coding Level of Care Code Nutr Indiv Intake (70763) Diagnoses Type 2 diabetes mellitus with diabetic polyneuropathy E11.42 Time Spent (min) 30
[2024-08-11 13:10] VITALS: BMI 31.1
== END 2024-08-03 13:16 | disposition home or self-care (01) ==
PROVIDERS: PCP Internal Medicine; Visit Provider Dietitian, Registered
DX: E11.42 Type 2 diabetes mellitus with diabetic polyneuropathy (principal)

== ENCOUNTER → 2024-08-03 12:32 | Outpatient (BNVA) | payer MEDICAID, SELFPAY ==
[2024-06-08 11:23] VITALS: BP 100/66; BP 104/60; BP 132/58; BMI 31.3
== END ==
PROVIDERS: PCP Internal Medicine; Visit Provider Dietitian, Registered
DX: E11.42 Type 2 diabetes mellitus with diabetic polyneuropathy (principal); Z96.41 Presence of insulin pump (external) (internal); Z79.4 Long term (current) use of insulin
CPT/HCPCS: 97802

== ENCOUNTER 2024-08-12 10:59 | Outpatient (AMB) | payer MEDICAID, SELFPAY ==
[2024-06-08 11:23] VITALS: BP 100/66; BP 104/60; BP 132/58; BMI 31.3
--- NOTE | 2024-08-12 11:05 | MHC.OFFVIS ---
Vital Signs 08/12/24 11:09 Height 5 ft 1.73 in Weight 167 lb 12.348 oz BMI 31.0 BP 130/72 Blood Pressure Location Lt brachial Position Sitting Pulse 93 Pulse Source Pulse Oximeter Pulse Oximetry (%) 96 Oxygen Delivery Method Room Air Intake Visit Reasons: Osteoporosis Intake Note: Patient present today for Osteoporosis follow up. Video Tape Transferrer Required: No Accompanied by: Self / Same As Patient Allergies dulaglutide [From TRULICITY] Allergy (Unknown, Verified 08/12/24 11:10) DIARRHEA AND VOMITTING liraglutide [From VICTOZA] Allergy (Unknown, Verified 08/12/24 11:10) DIARRHEA AND VOMITTING, vomiting and diahrrea Medication List - Last Reconciled 08/12/24 by Suleiman Hargrove MD acetone (urine) test (Ketone Urine Test strips) As directed if glucose running over 250, nausea or vomiting check urine for ketones. If + seek medical attention aspirin (Adult Aspirin Regimen) 81 mg PO DAILY blood pressure monitor (Blood Pressure Kit) As directed blood sugar diagnostic (FreeStyle Lite Strips) DIRECTED THREE TIMES A DAY blood-glucose meter,continuous (Dexcom G6 Licensing And Registration Director) As directed blood-glucose sensor (Dexcom G6 Sensor device) As directed every 10 days blood-glucose transmitter (Dexcom G6 Transmitter device) As directed one every 3 months calcium carbonate (Calcium 600) 600 mg PO BID cholecalciferol (vitamin D3) (Vitamin D3) 50 mcg PO DAILY docusate sodium 100 mg PO BEDTIME empagliflozin (Jardiance) 10 mg PO DAILY ezetimibe (Zetia) 10 mg PO DAILY furosemide 40 mg PO DAILY 90 days gabapentin 100 mg PO BEDTIME PRN insulin aspart U-100 Up to 150 units via pump subcut daily; 30 days insulin syringe-needle U-100 (BD Insulin Syringe Ultra-Fine) As directed use 3 times day levothyroxine 125 mcg PO DAILY metoprolol tartrate 25 mg PO BID 90 days oxycodone 5 mg PO Q4H PRN pantoprazole 40 mg PO DAILY PRN pen needle, diabetic (Comfort EZ Pen [place]) As directed potassium chloride ER 1 tab PO BID pyridoxine (vitamin B6) 100 mg PO DAILY rosuvastatin 40 mg PO BEDTIME sennosides (senna) 8.6 mg PO BEDTIME tamoxifen 20 mg PO DAILY valsartan 80 mg PO DAILY HPI Comments Details: 59 YO Female is seen in consultation at the request of PCP for Osteoporosis. The patient is also followed here for diabetes and post-surgical hypothyroidism. Today's visit focus on the osteoporosis The patient is a 59-year-old female presenting with osteoporosis as identified from recent testing. Her osteoporosis was noted about a month ago with testing revealing a T-score of -2.7. She has no reported history of fractures, but the diagnosis is of concern especially due to her ongoing breast cancer treatment with tamoxifen, which may further decrease bone density. The patient has a pertinent family history of osteoporosis, with both her mother and aunt affected. The patient is aware of her dietary intake of calcium and vitamin D, although she has not been consistently taking her prescribed calcium medication, having been prescribed calcium carbonate 600 mg to be taken twice daily. She reports vitamin D3 2000 IU adherence. GERD symptoms are self-managed predominantly through dietary adjustments. First diagnosed in just recently . Not Received treatment in the past No history of pathologic fracture or ONJ. Has several servings of dietary calcium per day in the form of cheese . Not Takes Calcium supplement Takes 2000 IU of Vitamin D daily. The patient's diet includes some sources of calcium, such as cottage cheese, though not consumed regularly. She is informed about maintaining a dietary calcium intake of 1200 mg daily and uses a guide to check her food intake. She has been encouraged to achieve most calcium intake through dietary sources rather than supplements. Takes PPI, anticoagulant, antiepileptic or glucocorticoid medication. Takes Tamoxifen for breast cancer .- Calcium supplements: Previously prescribed calcium carbonate 600 mg twice daily but not consistently taken. - Vitamin D supplementation: Vitamin D3 2000 IU daily as per patient report. - Tamoxifen: Recently initiated roughly a week ago for breast cancer treatment, intended for five-year therapy. - Proton Pump Inhibitors: Pantoprazole used as needed for GERD. 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 Not UTD on dental cleanings and sees dentist every 6 months. No planned upcoming dental work or extractions. DXA dated 06/11/24 :EXAMINATION: DXA BONE DENSITY AXIAL HISTORY: Estrogen deficiency TECHNIQUE: 2345.[email or web address] Dual energy absorptiometry (DEXA) of the lumbar spine, total left hip, and femoral neck was performed. COMPARISON: There are no prior studies for comparison. FINDINGS: The bone mineral density of the lumbar spine is 0.995 with a T-score of -1.5, and a Z-score of -0.7. The bone mineral density of the left total hip is 0.755 with a T-score of -2.0, and a Z-score of -1.4. The bone mineral density of the left femoral neck is 0.643 with a T-score of -2.8, and a Z-score of -1.8. FRACTURE RISK: The FRAX index suggests a risk of major osteoporotic fracture of 9.5%, and of hip fracture 2.4%. MM/XR DEXA axial skeleton IMPRESSION: Based on bone mineral density, and according to World Health Organization (WHO) criteria, the diagnosis is consistent with osteoporosis. Labs: [facility] Medical History (Updated 08/12/24 @ 11:26 by Suleiman Hargrove MD) Osteoporosis History of MRSA infection Port-A-Cath in place Hypokalemia Thyroid disease Insulin pump in place Numbness Cough SOB (shortness of breath) On beta suzanne at home CHF (congestive heart failure) History of chemotherapy Neuropathy Myocardial infarction Breast cancer (~09/2023) Preoperative cardiovascular examination Invasive ductal carcinoma of breast Breast cancer, right Breast mass, right Abnormal finding on mammography Abnormal echocardiogram Abnormal stress ECG with treadmill Hearing deficit CKD (chronic kidney disease) stage 3, GFR 30-59 ml/min Low back pain Bacterial conjunctivitis of both eyes Urine incontinence Well woman exam Pyelonephritis Left navicular fracture of foot Vitamin B12 deficiency Thyroid nodule History of Clostridium difficile infection Coronary artery disease Hypercholesterolemia Depression Kidney stone Carpal tunnel syndrome Arthritis 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 Vitamin D deficiency Essential hypertension Type 2 diabetes mellitus with hyperglycemia Surgical History H/O mastectomy (~07/07/24) History of lumpectomy (~05/2024) History of coronary artery stent placement History of biopsy Hx of colonoscopy S/P triple vessel bypass Hx of toe surgery Hx of thyroidectomy History of renal stent Hx of section Hx of myomectomy Hx of tonsillectomy Family History Father DM (diabetes mellitus) Hypertension High cholesterol Spina bifida Kidney stone CAD (coronary artery disease) Mother DM (diabetes mellitus) Hypertension High cholesterol CAD (coronary artery disease) Bipolar 1 disorder Maternal Aunt Lung cancer Maternal Grandfather Lung cancer Other Mental health disorder Social History Household Members: None Household Members Other:: daughter Housing: Apartment Are you a primary housekeeper caregiver to a significant other at home: No Do you presently have visiting nurse or other home services: No Alcohol intake: never Patient Tobacco Use Status: Never used Tobacco e-Cigarette/Vaping Use: Never Used Second Hand Smoke Exposure: No service: No Current occupational status: employed Cognitive needs: No Hearing needs: No Vision needs: Yes Female Reproductive History Menstrual Age of Menarche: 11 Physical Exam Vital Signs: BMI result Body Mass Index 31.0 There are no Cushingoid features. Absence of blue sclera. Absence of kyphosis. Thyroid gland is of nl size and weighs 15 gms. There are no thyroid nodules palpated. Lungs CTA. Heart S1 S2 Reg R/R Abdominal exam benign. Muscle strength 5/5 . Examination of spine reveals absence of tenderness on palpation Assessment & Plan Assessment & Plan (1) Osteoporosis: Code(s): M81.0 - Age-related osteoporosis without current pathological fracture Category: Medical Plan: This is a 59-year-old female found to have osteoporosis based on a T-score of-2.8 in the left femoral neck. Partial Secondary workup has been negative. Patient just started tamoxifen which may contribute to bone loss Plan is to complete the secondary workup by checking a SPEP, urine immunofixation, phosphorus level. Will ensure 1200 mg of calcium and 2000 units of vitamin D3 Assuming secondary workup was negative, could consider use of anti resorptive agent like oral intravenous bisphosphonate or Prolia but would favor oral bisphosphonate if patient can tolerate. 1. Osteoporosis: T-score of -2.7 suggests osteoporosis exacerbated by tamoxifen. Consideration for alendronate for bone density improvement, pending further diagnostic tests to exclude secondary causes. Calcium intake to be enhanced, preferably through diet. Follow-up planned post-testing. 2. Thyroid Disorder and Diabetes Mellitus: Continued regular monitoring recommended, with instructions to follow up with the primary care physician or endocrinology for routine surveillance. 5. Renal Health: Ongoing kidney stone evaluation planned with urology follow-up in August. Including renal health assessment in osteoporosis plan. I discussed the diagnosis of osteoporosis with the patient, highlighting the risks associated due to tamoxifen usage and her current bone density status. We reviewed treatment options, focusing on bisphosphonate therapy with alendronate, weighing potential benefits against gastrointestinal side effects. Alternative treatment options such as IV bisphosphonates were considered but deemed unnecessary given the current diagnosis severity. Lifestyle modifications, including dietary calcium and vitamin D maintenance, were emphasized. Blood and urine tests are scheduled to determine additional factors contributing to bone density loss, and a follow-up visit to review these results will inform further treatment decisions. Additionally, I reviewed her current medications and potential interactions with her cancer treatment, advising monitoring by her oncology and primary care teams. - Ensure calcium intake of 1200 mg daily, primarily through diet. - Continue taking Vitamin D3 as prescribed. - Schedule and complete blood and urine tests as soon as possible to assist in evaluating osteoporosis management. - Return for a follow-up visit in approximately three months. - - Maintain all scheduled follow-ups with oncology for breast cancer and urology for renal stones. - If noticing any new symptoms or changes in current symptoms, contact the primary care or specialty providers. The patient had an opportunity to ask questions regarding treatment plan. The patient expressed understanding and agreement with the above treatment plan. Patient was informed and verbally consented to the use of an ambient scribe for clinic note documentation during this visit. Orders: Orders Protein Electrophoresis, Serum Today M81.0 - Age-related osteoporosis without current pathological fracture Vitamin D 25-OH Total Today M81.0 - Age-related osteoporosis without current pathological fracture Phosphorus Today M81.0 - Age-related osteoporosis without current pathological fracture Coding Level of Care Code Est Pt Level 3 (57916) Diagnoses Osteoporosis M81.0
[2024-08-12 11:09] VITALS: BP 130/72; PULSE 93; O2SAT 96; BMI 31.0
== END 2024-08-12 12:04 | disposition home or self-care (01) ==
LOC: HO.ENCR 11:00
PROVIDERS: PCP Internal Medicine; Visit Provider Internal Medicine Endocrinology, Diabetes & Metabolism
DX: M81.0 Age-related osteoporosis without current pathological fracture (principal)
CPT/HCPCS: 99213

== ENCOUNTER → 2024-08-12 10:59 | Outpatient (BNVA) | payer MEDICAID, SELFPAY ==
[2024-06-08 11:23] VITALS: BP 100/66; BP 104/60; BP 132/58; BMI 31.3
== END ==
PROVIDERS: PCP Internal Medicine; Visit Provider Internal Medicine Endocrinology, Diabetes & Metabolism
DX: M81.0 Age-related osteoporosis without current pathological fracture (principal)
CPT/HCPCS: 99212

== ENCOUNTER 2024-08-13 13:00 | Outpatient (AMB) | payer MEDICAID, SELFPAY ==
[2024-06-08 11:23] VITALS: BP 100/66; BP 104/60; BP 132/58; BMI 31.3
--- NOTE | 2024-08-13 13:02 | A.OFFVIS_ITS ---
Intake Visit Reasons: one month s/p Total mastectomy Intake Note: Patient here 1m s/p total mastectomy on 07-07-2024. Reports incision healing well. Patient c/o: no concerns. Denies bleeding, oozing, pain. Recently started Tamoxifen. E Marketing Specialist Required: No Accompanied by: Self / Same As Patient Allergies dulaglutide [From TRULICITY] Allergy (Unknown, Verified 08/13/24 13:07) DIARRHEA AND VOMITTING liraglutide [From VICTOZA] Allergy (Unknown, Verified 08/13/24 13:07) DIARRHEA AND VOMITTING, vomiting and diahrrea HPI HPI one month s/p Total mastectomy: Details: She had undergone simple mastectomy of the right breast because of close margins after lumpectomy for her invasive ductal cancer . This was done on 07/07/2024 She continues to do well. She denies significant complaints. Location: [email or web address] PENDING SALE TO [facility] Medical History Osteoporosis History of MRSA infection Port-A-Cath in place Hypokalemia Thyroid disease Insulin pump in place Numbness Cough SOB (shortness of breath) On beta suzanne at home CHF (congestive heart failure) History of chemotherapy Neuropathy Myocardial infarction Breast cancer (~09/2023) Preoperative cardiovascular examination Invasive ductal carcinoma of breast Breast cancer, right Breast mass, right Abnormal finding on mammography Abnormal echocardiogram Abnormal stress ECG with treadmill Hearing deficit CKD (chronic kidney disease) stage 3, GFR 30-59 ml/min Low back pain Bacterial conjunctivitis of both eyes Urine incontinence Well woman exam Pyelonephritis Left navicular fracture of foot Vitamin B12 deficiency Thyroid nodule History of Clostridium difficile infection Coronary artery disease Hypercholesterolemia Depression Kidney stone Carpal tunnel syndrome Arthritis 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 Vitamin D deficiency Essential hypertension Type 2 diabetes mellitus with hyperglycemia Surgical History H/O mastectomy (~07/07/24) History of lumpectomy (~05/2024) History of coronary artery stent placement History of biopsy Hx of colonoscopy S/P triple vessel bypass Hx of toe surgery Hx of thyroidectomy History of renal stent Hx of section Hx of myomectomy Hx of tonsillectomy Family History Father DM (diabetes mellitus) Hypertension High cholesterol Spina bifida Kidney stone CAD (coronary artery disease) Mother DM (diabetes mellitus) Hypertension High cholesterol CAD (coronary artery disease) Bipolar 1 disorder Maternal Aunt Lung cancer Maternal Grandfather Lung cancer Other Mental health disorder Social History Household Members: None Household Members Other:: daughter Housing: Apartment Are you a primary respiratory care technician to a significant other at home: No Do you presently have visiting nurse or other home services: No Alcohol intake: never Patient Tobacco Use Status: Never used Tobacco e-Cigarette/Vaping Use: Never Used Second Hand Smoke Exposure: No service: No Current occupational status: employed Cognitive needs: No Hearing needs: No Vision needs: Yes Female Reproductive History Menstrual Age of Menarche: 11 Review of Systems Const Denies chills and Denies fever(s) Card Denies chest pain, Denies dyspnea and Denies dyspnea on exertion Resp Denies cough, Denies dyspnea and Denies dyspnea on exertion GI Denies hematochezia and Denies change in bowel habits Denies hematuria Musc Denies back pain and Denies limited range of motion Neuro Denies focal weakness and Denies convulsions Psych Denies depression and Denies mood swings Physical Exam Const General: comfortable and no acute distress Chest Other: Mastectomy site on the right is well healed, no palpable masses, no axillary lymphadenopathy Assessment & Plan Assessment & Plan (1) Invasive ductal carcinoma of breast: Comment: October 2023 right breast, right breast mastectomy June 2024 Code(s): C50.919 - Malignant neoplasm of unspecified site of unspecified female breast Category: Medical Plan: She had undergone neoadjuvant chemotherapy, lumpectomy, sentinel node biopsy and while simple mastectomy because of very close margins on her lumpectomy site. Her final path report is a yT2 N0 invasive ductal carcinoma, ER positive, PA negative, HER2 negative. She was reminded to undergo her regular screening mammograms for the left breast Current exam does not reveal any palpable breast masses on the mastectomy site or any axillary lymphadenopathy. She is to continue to follow up with Dr. Vasquez as well. I will see her in the office after her next mammogram for the left breast. Coding Level of Care Code Global (31835) Diagnoses Invasive ductal carcinoma of breast C50.919
--- OUTSIDE RECORDS SUMMARY | 2024-08-13 16:02 | XMS_ITS | Clinical Summary ---
Author Organization [facility] Address [address] [place] [address] Phone Care Team Providers Care Director Social Service Name Role Phone Dany Rubio MD Primary Care Provider [phone] Allergies Active Allergy Reactions Criticality Noted Date [...] g/dl PVNMA 03/14/2020 us [facility] [id number] LICITED RESULTS Final Result PVNMA from Last 3 Months or Most Recently Relevant to Health Maintenance Care Teams Director Social Service Relationship Specialty Start Date End Date Dany Rubio MD [facility] [id number] [place] PCP - General 05/30/20
== END 2024-08-13 13:18 | disposition home or self-care (01) ==
LOC: HO.HGS 13:01
PROVIDERS: PCP Internal Medicine; Visit Provider Surgery
DX: C50.919 Malignant neoplasm of unspecified site of unspecified female breast (principal)
CPT/HCPCS: 99024

== ENCOUNTER → 2024-08-13 13:00 | Outpatient (BNVA) | payer MEDICAID, SELFPAY ==
[2024-06-08 11:23] VITALS: BP 100/66; BP 104/60; BP 132/58; BMI 31.3
== END ==
PROVIDERS: PCP Internal Medicine; Visit Provider Surgery
DX: Z08 Encounter for follow-up examination after completed treatment for malignant neoplasm (principal); Z85.3 Personal history of malignant neoplasm of breast; Z90.11 Acquired absence of right breast and nipple
CPT/HCPCS: 99212

== ENCOUNTER 2024-08-18 11:35 | Outpatient (AMB) | payer OTHER, SELFPAY ==
[2024-06-08 11:23] VITALS: BP 100/66; BP 104/60; BP 132/58; BMI 31.3
--- NOTE | 2024-08-18 11:44 | A.OFFVIS_ITS ---
Intake Visit Reasons: follow up KUB (set) Intake Note: Patient presents today for tele visit follow up on: kidney stone and KUB X-ray results Imaging Completed: 06/11/24 Urology Medication: Vitamin B6 Blood Thinner: aspirin Granite Cutter Apprentice Required: No Granite Cutter Apprentice Services: Granite Cutter Apprentice Present Accompanied by: Self / Same As Patient Allergies dulaglutide [From TRULICITY] Allergy (Unknown, Verified 08/18/24 12:13) DIARRHEA AND VOMITTING liraglutide [From VICTOZA] Allergy (Unknown, Verified 08/18/24 12:13) DIARRHEA AND VOMITTING, vomiting and diahrrea Medication List - Last Reconciled 08/18/24 by GAURAV Sumner acetone (urine) test (Ketone Urine Test strips) As directed if glucose running over 250, nausea or vomiting check urine for ketones. If + seek medical attention aspirin (Adult Aspirin Regimen) 81 mg PO DAILY blood pressure monitor (Blood Pressure Kit) As directed blood sugar diagnostic (FreeStyle Lite Strips) DIRECTED THREE TIMES A DAY blood-glucose meter,continuous (Dexcom G6 Financing Analyst) As directed blood-glucose sensor (Dexcom G6 Sensor device) As directed every 10 days blood-glucose transmitter (Dexcom G6 Transmitter device) As directed one every 3 months calcium carbonate (Calcium 600) 600 mg PO BID cholecalciferol (vitamin D3) 1,250 mcg PO QWEEK docusate sodium 100 mg PO BEDTIME empagliflozin (Jardiance) 10 mg PO DAILY ezetimibe (Zetia) 10 mg PO DAILY furosemide 40 mg PO DAILY 90 days gabapentin 100 mg PO BEDTIME PRN insulin aspart U-100 Up to 150 units via pump subcut daily; 30 days insulin syringe-needle U-100 (BD Insulin Syringe Ultra-Fine) As directed use 3 times day levothyroxine 125 mcg PO DAILY metoprolol tartrate 25 mg PO BID 90 days oxycodone 5 mg PO Q4H PRN pantoprazole 40 mg PO DAILY PRN pen needle, diabetic (Comfort EZ Pen [place]) As directed potassium chloride ER 1 tab PO BID pyridoxine (vitamin B6) 100 mg PO DAILY rosuvastatin 40 mg PO BEDTIME sennosides (senna) 8.6 mg PO BEDTIME tamoxifen 20 mg PO DAILY valsartan 80 mg PO DAILY HPI Comments Details: Mayela is a pleasant 59 year old female patient of Dr. Rubio. She has a past medical history of arthritis, carpal tunnel syndrome, coronary artery disease, depression, hypertension, hypercholesteremia, type 2 diabetes with diabetic polyneuropathy, vitamin B12 deficiency, and vitamin-D deficiency. She presents to the office today for follow-up of her nephrolithiasis. In di scussion with the patient today she reports having had recent right-sided vasectomy due to diagnosis of breast cancer. She reports to be recovering well and continues to follow-up with her oncologist. Urologically she denies having had any bothersome urinary issues or concerns. She currently denies any bothersome urinary issues. She denies urinary urgency, urinary frequency, incontinence, nocturia, hematuria, dysuria, foul smelling urine, changes to urinary stream, flank pain, fever, and or chills. She is happy with her current voiding parameters. Recent KUB results reviewed with the patient today. 06/13 3 mm rounded calcification in the right upper quadrant which may be related to the colon or right kidney. She discusses her recent trip to [place] with her family in December. In office urinalysis results reviewed with the patient today. She continues to report compliance with vitamin B6, adding 1 oz of lemon juice to water daily, and increase in hydration. She otherwise offers no other issues or concerns at this time. Plan The patient?s nephrolithiasis will be managed conservatively with active monitoring given the stone's small size and lack of symptoms. Hydration advice and dietary management will be discussed to prevent stone growth or recurrence. The patient understands that intervention will only be considered should the stone become symptomatic or demonstrate significant progression. Patient was informed and verbally consented to the use of an ambient scribe for clinic note documentation during this visit. Discussion Notes I reviewed the presence of a 3 mm stone in the right kidney with the patient. Given the stone?s size, the recommendation is to manage conservatively with regular monitoring. We discussed the importance of maintaining hydration and pot ential dietary adjustments to prevent stone enlargement. I explained that surgical intervention is not necessary at this point, given the absence of symptoms like pain or hematuria. We addressed her complex comorbid conditions, considering her recent diagnosis of breast cancer. Consent discussions included potential future interventions should symptoms arise and the implications of medical management on her overall health status. The patient was advised on the importance of follow-up evaluations and reporting any new urinary symptoms promptly. [facility] Medical History Osteoporosis History of MRSA infection Port-A-Cath in place Hypokalemia Thyroid disease Insulin pump in place Numbness Cough SOB (shortness of breath) On beta suzanne at home CHF (congestive heart failure) History of chemotherapy Neuropathy Myocardial infarction Breast cancer (~09/2023) Preoperative cardiovascular examination Invasive ductal carcinoma of breast Breast cancer, right Breast mass, right Abnormal finding on mammography Abnormal echocardiogram Abnormal stress ECG with treadmill Hearing deficit CKD (chronic kidney disease) stage 3, GFR 30-59 ml/min Low back pain Bacterial conjunctivitis of both eyes Urine incontinence Well woman exam Pyelonephritis Left navicular fracture of foot Vitamin B12 deficiency Thyroid nodule History of Clostridium difficile infection Coronary artery disease Hypercholesterolemia Depression Kidney stone Carpal tunnel syndrome Arthritis 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 Vitamin D deficiency Essential hypertension Type 2 diabetes mellitus with hyperglycemia Surgical History H/O mastectomy (~07/07/24) History of lumpectomy (~05/2024) History of coronary artery stent placement History of biopsy Hx of colonoscopy S/P triple vessel bypass Hx of toe surgery Hx of thyroidectomy History of renal stent Hx of section Hx of myomectomy Hx of tonsillectomy Family History Father DM (diabetes mellitus) Hypertension High cholesterol Spina bifida Kidney stone CAD (coronary artery disease) Mother DM (diabetes mellitus) Hypertension High cholesterol CAD (coronary artery disease) Bipolar 1 disorder Maternal Aunt Lung cancer Maternal Grandfather Lung cancer Other Mental health disorder Social History Household Members: None Household Members Other:: daughter Housing: Apartment Are you a primary career agent to a significant other at home: No Do you presently have visiting nurse or other home services: No Alcohol intake: never Patient Tobacco Use Status: Never used Tobacco e-Cigarette/Vaping Use: Never Used Second Hand Smoke Exposure: No service: No Current occupational status: employed Cognitive needs: No Hearing needs: No Vision needs: Yes Female Reproductive History Menstrual Age of Menarche: 11 Review of Systems Const Reports as per HPI Eyes Reports no additional complaints ENT Reports no additional complaints Card Reports as per HPI Resp Reports no additional complaints GI Reports no additional complaints Reports as per HPI Musc Reports no additional complaints Skin/Breast Reports as per HPI Neuro Reports no additional complaints Psych Reports no additional complaints Endo Details: Patient reports taking medications for Daibetes and reports sugars to be controlled Reports as per [facility] Yovanny/Lymph Reports as per HPI Aller/Immun Reports no additional complaints Physical Exam Const General: cooperative, healthy appearing, comfortable, no acute distress, well developed, alert and awake Orientation/consciousness: patient oriented x3 Limitations: no limitations HEENT Head: Yes normal to inspection, Yes normocephalic and Yes atraumatic Ears: hearing grossly normal bilaterally Eyes General: appearance normal, both eyes and all related structures Neck Neck: Yes normal visual inspection and Yes trachea midline Chest Chest palpation & inspection: normal inspection of the chest Resp Effort & Inspection: normal respiratory effort and able to speak in complete sentences Cardio Rate: regular rate GI Inspection: Yes normal to inspection General: Yes no CVA tenderness Back/Spine/Pelvis Back: no CVA tenderness Skin General skin exam: no rashes or lesions noted Neuro General: patient oriented x3 Extrem General: Yes normal to inspection Psych Appearance: grossly normal and well kempt Mental Status: mental status grossly normal Speech and movement: Normal speech and movement present and Clear speech present Affect: normal affect Attitude: cooperative Thought process: Normal thought process present Thought content: Normal thought content present Insight: Fair insight present (Psych) Judgement: Fair judgement present (Psych) Results AMB Urinalysis, Automated UA Leukoctes 0 Kelin/uL Last Edit by [email or web address] [email or web address] on 08/18/24 11:59 UA Nitrite Last Edit by [email or web address] [email or web address] on 08/18/24 11:59 UA Urobilinogen 0.2 mg/dL Last Edit by [email or web address] Moulton on 08/18/24 11:59 UA Protein 30 mg/dL Last Edit by [email or web address] Moulton on 08/18/24 11:59 UA pH 6.0 Last Edit by Willi Liloyd on 08/18/24 11:59 UA Blood 0 Brian/uL Last Edit by Willi Jenloyd on 08/18/24 11:59 UA Specific [place] 1.025 Last Edit by Fermingerda Jenloyd on 08/18/24 11:59 UA Ketone Negative Last Edit by Willi Jenloyd on 08/18/24 11:59 UA Bilirubin 0 mg/dL Last Edit by Willi Jenloyd on 08/18/24 11:59 UA Glucose 0 mg/dL Last Edit by Willi Jenloyd on 08/18/24 11:59 Results Reviewed Results Reviewed: Laboratory Last Values Urine pH (Auto) 6.0 08/18/24 11:54 Specific [place] (Auto) 1.025 08/18/24 11:54 Urine Protein (Auto) 30 mg/dL 08/18/24 11:54 Glucose (UA)(Auto) 0 mg/dL 08/18/24 11:54 Urine Ketones (Auto) Negative 08/18/24 11:54 Urine Blood (Auto) 0 Brian/uL 08/18/24 11:54 Urine Bilirubin (Auto) 0 mg/dL 08/18/24 11:54 Urine Urobilinogen (Auto) 0.2 mg/dL 08/18/24 11:54 Leukocyte Esterase (Auto) 0 Kelin/uL 08/18/24 11:54 Date of Service: 06/11/24 Procedure(s): XR KUB FINDINGS: Two supine views of the abdomen are submitted. The bowel gas pattern is unremarkable, without evidence of mechanical obstruction. There is a large amount of stool throughout the colon. There is a 3 mm rounded calcification in the right upper quadrant which may be related to the colon or right kidney. There is a radiopaque tablet noted at the GE junction. There is a calcification in the right hemipelvis which may be vascular in nature. There are no abnormal soft tissue masses. The bones are intact. IMPRESSION: 3 mm rounded calcification in the right upper quadrant which may be related to the colon or right kidney. Probable vascular calcification in the right hemipelvis. Assessment & Plan Assessment & Plan (1) Renal calculus, bilateral: Code(s): N20.0 - Calculus of kidney Category: Medical Plan Recent KUB results reviewed with the patient today; as noted above. Discussed at length importance of continuing to drink plenty of water daily Patient currently denies any bothersome urinary issues or concerns. She reports be happy with current voiding parameter. Will continue with surveillance monitoring at this time Continue vitamin B6. Will obtain renal ultrasound in 6 months. Follow-up in 6 months with imaging to be completed prior; or sooner with any issues, concerns. Orders: Orders AMB Urinalysis Automated Today Z13.9 - Encounter for screening, unspecified US renal BI 6 Months N20.0 - Calculus of kidney Patient Instructions: The patient had an opportunity to ask questions regarding the treatment plan. All questions were answered. Physical exam, labs, and imaging were discussed and reviewed in detail. As well as risks, benefits, and discussion of treatment choices. No major barriers to understanding were identified. The patient expressed understanding and agreement with the above treatment plan. The patient was made aware they should contact our office by phone for worsening of their current condition, the appearance of new symptoms, or with any questions or concerns. Compliance is encouraged with any medications and follow up testing that is ordered. It is a privilege to be allowed the opportunity to participate in? your urological care.? Again, if you have any questions or concerns If you have any questions or concerns please do not hesitate to contact me. The office is [phone]. This note is constructed using voice recognition software. While every effort has been made to ensure accuracy tile erector errors may have been included. Yours sincerely, GAURAV Sumner Coding Level of Care Code Est Pt Level 3 (50254) Complex EM visit Add On G2211 Diagnoses Renal calculus, bilateral N20.0
--- OUTSIDE RECORDS SUMMARY | 2024-08-18 14:00 | XMS_ITS | Clinical Summary ---
Author Organization [facility] Address [address] [facility] [place] [address] Phone Care Team Providers Care Time Analysis Clerk Name Role Phone Dany Rubio MD Primary Care Provider [phone] Allergies Active Allergy Reactions Criticality Noted Date [...] g/dl PVNMA 03/14/2020 us Rtama Conversion LAB [id number] LICITED RESULTS Final Result PVNMA from Last 3 Months or Most Recently Relevant to Health Maintenance Care Teams Time Analysis Clerk Relationship Specialty Start Date End Date Dany Rubio MD [facility] [place] [address] [place] PCP - General 05/30/20
== END 2024-08-18 12:15 | disposition home or self-care (01) ==
LOC: HO.HUSH 11:36
PROVIDERS: PCP Internal Medicine; Visit Provider Nurse Practitioner Family
DX: Z13.9 Encounter for screening, unspecified (principal); N20.0 Calculus of kidney
CPT/HCPCS: 99213; G2211

== ENCOUNTER → 2024-08-18 11:35 | Outpatient (BNVA) | payer OTHER, SELFPAY ==
[2024-06-08 11:23] VITALS: BP 100/66; BP 104/60; BP 132/58; BMI 31.3
== END ==
PROVIDERS: PCP Internal Medicine; Visit Provider Nurse Practitioner Family
DX: N20.0 Calculus of kidney (principal)
CPT/HCPCS: 81003; 99212

== ENCOUNTER 2024-09-14 14:24 | Outpatient (AMB) | payer OTHER, SELFPAY ==
[2024-06-08 11:23] VITALS: BP 100/66; BP 104/60; BP 132/58; BMI 31.3
[2024-09-14 14:32] VITALS: BMI 31.0
--- NOTE | 2024-09-14 14:32 | A.OFFVIS_ITS ---
VS Expanded 09/14/24 14:32 Height 5 ft 2 in Weight 169 lb 12.095 oz BMI 31.0 Intake Visit Reasons: t2dm Allergies dulaglutide [From TRULICITY] Allergy (Unknown, Verified 09/15/24 14:10) DIARRHEA AND VOMITTING liraglutide [From VICTOZA] Allergy (Unknown, Verified 09/15/24 14:10) DIARRHEA AND VOMITTING, vomiting and diahrrea Nutrition Presentation Details: Pt presents for MNT f/u for T2DM Pt reports having good appetite , reports working on choosing lower sugar beverages , reading food labels acknowleges in consuming large food portion sizes > 75 g carb per meal and > 40 as snack Challenges during family outings BS Monitoring Most Recent Diabetes Results: Creatinine 1.01 mg/dL (0.5-1.4) 08/24/24 Blood Urea Nitrogen 13 mg/dL (9-16) 08/24/24 Sodium 142 mmol/L (135-145) 08/24/24 Potassium 3.9 mmol/L (3.3-5.1) 08/24/24 Chloride 107 mmol/L (96-108) 08/24/24 Carbon Dioxide 27 mmol/L (22-29) 08/24/24 Calcium 9.8 mg/dL (8.4-10.2) 08/24/24 AST 28 U/L (5-31) 08/24/24 ALT 19 U/L (0-31) 08/24/24 Total Protein 7.8 g/dL (6.5-8.0) 08/24/24 Albumin 4.3 g/dL (3.5-5.0) 08/24/24 [facility] Medical History Osteoporosis History of MRSA infection Port-A-Cath in place Hypokalemia Thyroid disease Insulin pump in place Numbness Cough SOB (shortness of breath) On beta suzanne at home CHF (congestive heart failure) History of chemotherapy Neuropathy Myocardial infarction Breast cancer (~09/2023) Preoperative cardiovascular examination Invasive ductal carcinoma of breast Breast cancer, right Breast mass, right Abnormal finding on mammography Abnormal echocardiogram Abnormal stress ECG with treadmill Hearing deficit CKD (chronic kidney disease) stage 3, GFR 30-59 ml/min Low back pain Bacterial conjunctivitis of both eyes Urine incontinence Well woman exam Pyelonephritis Left navicular fracture of foot Vitamin B12 deficiency Thyroid nodule History of Clostridium difficile infection Coronary artery disease Hypercholesterolemia Depression Kidney stone Carpal tunnel syndrome Arthritis 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 Vitamin D deficiency Essential hypertension Type 2 diabetes mellitus with hyperglycemia Surgical History H/O mastectomy (~07/07/24) History of lumpectomy (~05/2024) History of coronary artery stent placement History of biopsy Hx of colonoscopy S/P triple vessel bypass Hx of toe surgery Hx of thyroidectomy History of renal stent Hx of section Hx of myomectomy Hx of tonsillectomy Family History Father DM (diabetes mellitus) Hypertension High cholesterol Spina bifida Kidney stone CAD (coronary artery disease) Mother DM (diabetes mellitus) Hypertension High cholesterol CAD (coronary artery disease) Bipolar 1 disorder Maternal Aunt Lung cancer Maternal Grandfather Lung cancer Other Mental health disorder Social History Household Members: None Household Members Other:: daughter Housing: Apartment Are you a primary critical care unit manager to a significant other at home: No Do you presently have visiting nurse or other home services: No Alcohol intake: never Patient Tobacco Use Status: Never used Tobacco e-Cigarette/Vaping Use: Never Used Second Hand Smoke Exposure: No Patient : No service: No Current occupational status: employed Cognitive needs: No Hearing needs: No Vision needs: Yes Female Reproductive History Menstrual Age of Menarche: 11 Assessment & Plan Assessment & Plan (1) Type 2 diabetes mellitus with diabetic polyneuropathy: Code(s): E11.42 - Type 2 diabetes mellitus with diabetic polyneuropathy Category: Medical Plan: Wt: 77 Kg ( 08/11 ), 09/11 Est kcal needs as per MSJ: 1800 (40% carb, 30% protein/fat) Est fluid needs as per 25-30 ml/d: 2300 Est prot per day as per 1 g/kg bw: 77 Recommend fiber intake : 8-10 g per day and gradually increase to 25-28 g per day for women and 35-38 g for men or as tolerated Recommend sodium intake per day : less than 2000 mg Educated patient on: ( R = reviewed V = verbalizes understanding N/R = needs review N/A = not applicable * Food sources of carbohydrate, adequate serving sizes and its role in various health conditions: R V * Differences between complex carbohydrates a simple carbohydrates, role of fiber in diet: R V * Lean protein sources of foods: R V * Differences between types of fats and role in diet (mono on saturated fat fatty acids, saturated fatty acids, trans fats): R * Food sources of sodium in salt and healthy modifications for heart health in kidney health: R V * Vitamins and minerals: R V N/R * Healthy plate method concept: R V * Physical activity: Benefits a precaution: R V N/R * Hypoglycemia protocol (rule of 15): R V N/R * Dietary prevention of Hyperglycemia: R Patient Instructions: Choose decaf tea, try seltzer water Include fiber rich foods (seeds, oats, vegetables, whole grains work on portion sizes - REducing total carb per meal to 45-60 g (3 meal/d) , choose carrots/vegetable low carb foods as second servings Limit snack to 2 a day consisting of less than 20 g carbs - see list of options l Coding Level of Care Code Nutr Indiv Subseq (65768) Diagnoses Type 2 diabetes mellitus with diabetic polyneuropathy E11.42 Time Spent (min) 30
--- OUTSIDE RECORDS SUMMARY | 2024-09-14 17:16 | XMS_ITS | Clinical Summary ---
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 Name Role Phone Dany Rubio MD Primary Care Provider [phone] Allergies Active Allergy Reactions Criticality Noted Date [...] Comments Breast Cancer Screening 1964 Pneumococcal Vaccine: 50+ Years (1 of 2 - PCV) 1983 Colorectal Cancer Screening: Annual FOBT 2013 Colorectal Cancer Screening: Colonoscopy 2013 Colorectal Cancer Screening: Sigmoidoscopy 2013 Diabetes: Hemoglobin A1C 06/20/2020 020, 06/08/2019 Diabetes: Ophthalmology Exam 06/20/2020 Diabetes: Pedal Pulse Checked 06/20/2020 Diabetes: Sensory Foot Exam 06/20/2020 Diabetes: Visual Foot Exam 06/20/2020 Influenza Vaccine (Season Ended) 2025 Hepatitis B Vaccine Aged Out No longe [...] g/dl PVNMA 03/14/2020 us Rtama Conversion LAB [id number] LICITED RESULTS Final Result PVNMA from Last 3 Months or Most Recently Relevant to Health Maintenance Care Teams 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
== END 2024-09-15 09:31 | disposition home or self-care (01) ==
LOC: HO.ENCR 14:24
PROVIDERS: PCP Internal Medicine; Visit Provider Dietitian, Registered
DX: E11.42 Type 2 diabetes mellitus with diabetic polyneuropathy (principal)

== ENCOUNTER → 2024-09-14 14:24 | Outpatient (BNVA) | payer OTHER, SELFPAY ==
[2024-06-08 11:23] VITALS: BP 100/66; BP 104/60; BP 132/58; BMI 31.3
== END ==
PROVIDERS: PCP Internal Medicine; Visit Provider Dietitian, Registered
DX: E11.42 Type 2 diabetes mellitus with diabetic polyneuropathy (principal)
CPT/HCPCS: 97803

== ENCOUNTER 2024-09-15 14:00 | Outpatient (AMB) | payer OTHER, SELFPAY ==
[2024-06-08 11:23] VITALS: BP 100/66; BP 104/60; BP 132/58; BMI 31.3
--- NOTE | 2024-09-15 08:52 | A.OFFVIS_ITS ---
Vital Signs 09/15/24 14:05 Height 5 ft 2 in Weight 168 lb 6.931 oz BMI 30.8 BP 118/64 Blood Pressure Location Lt brachial Position Sitting Pulse 64 Pulse Source Pulse Oximeter Pulse Oximetry (%) 97 Oxygen Delivery Method Room Air Intake Visit Reasons: DM Intake Note: Patient presents today for a follow-up on Type 2 Diabetes Mellitus: Last Diabetic eye exam was on: 02/11/2024 at [facility] Last Podiatry exam was on: Patient does not see a Invertebrate Paleontologist Most recent HbA1c: 9.5% Random Glucose- 230 mg/dL Advanced Registered Nurse Required: No Accompanied by: Self / Same As Patient Allergies dulaglutide [From TRULICITY] Allergy (Unknown, Verified 09/15/24 14:10) DIARRHEA AND VOMITTING liraglutide [From VICTOZA] Allergy (Unknown, Verified 09/15/24 14:10) DIARRHEA AND VOMITTING, vomiting and diahrrea Medication List - Last Reconciled 09/15/24 by Tia Sosa NP acetone (urine) test (Ketone Urine Test strips) As directed if glucose running over 250, nausea or vomiting check urine for ketones. If + seek medical atten tion aspirin (Adult Aspirin Regimen) 81 mg PO DAILY blood pressure monitor (Blood Pressure Kit) As directed blood sugar diagnostic (FreeStyle Lite Strips) DIRECTED THREE TIMES A DAY blood-glucose transmitter (Dexcom G6 Transmitter device) As directed every 3 months blood-glucose,cargo inspector,cont (Dexcom G6 Rim Buster) As directed calcium carbonate (Calcium 600) 600 mg PO BID cholecalciferol (vitamin D3) 1,250 mcg PO QWEEK Dexcom G6 Sensor (blood-glucose sensor) As directed every 10 days NS docusate sodium 100 mg PO BEDTIME empagliflozin (Jardiance) 10 mg PO DAILY ezetimibe (Zetia) 10 mg PO DAILY furosemide 40 mg PO DAILY 90 days gabapentin 100 mg PO BEDTIME PRN insulin aspart U-100 Up to 150 units via pump subcut daily; 30 days insulin glargine (Lantus Solostar U-100 Insulin) 30 units (0.3 mL) subcut QPM PRN 30 days MDD 30 units insulin syringe-needle U-100 (BD Insulin Syringe Ultra-Fine) As directed use 3 times day levothyroxine 125 mcg PO DAILY metoprolol tartrate 25 mg PO BID 90 days pantoprazole 40 mg PO DAILY PRN pen needle, diabetic (Comfort EZ Pen [place]) As directed potassium chloride ER 1 tab PO BID pyridoxine (vitamin B6) 100 mg PO DAILY rosuvastatin 40 mg PO BEDTIME sennosides (senna) 8.6 mg PO BEDTIME tamoxifen 20 mg PO DAILY valsartan 80 mg PO DAILY HPI Comments Details: Patient is a 59 yo female with DM type 2 diagnosed over 20 years ago who presents for continued management of diabetes. She was last seen 06/16/24 for diabetes. Insulin pump settings had been changed to give additional insulin for both carbohydrates and for correction factor, she has completed chemotherapy for breast cancer.She is scheduled for additional surgery, She was also followed by Dr. Hargrove for osteoporosis and was last seen 1 month ago with a follow up in October. 1) Diabetes - A1C most recent 09/15/24 9.5%, 04/20/24 8.8%, 11.8% 12/12/23. Previous 8.8% 2022. Glucose management indicator for last 2 weeks from sensor is 7.5% Previous treatment: Metformin ER stopped due to GI upset, Took Trulicity and Victoza and had GI intolerance in 2014 Diabetes medications: Novolog via T-slim X 2 with control IQ and Dexcom pump, Jardiance 10 mg QD Mounjaro 2.5 mg weekly not taking Since first chemo 01/12 Basal rate(s) (units/hour) : 12 AM? to 12 PM? 1.6 units / hr 12 PM? to 12 AM? 1.6 units / hr Bolus setting Insulin Carbohydrate Ratio (s) 12 AM to 12 PM 1:4.2 12 PM to 12 AM 1:4.2 Correction Factor / Sensitivity Factor 12 AM? to 12 PM? 1:20 12 PM? to 12 AM? 1:18 Active Insulin Time:? 4.0 Target(s): 12 AM to 12 AM? 110 Dexcom average glucose: 162 14 day continuous glucose monitor report reviewed TIme in ranges: [5 ] % very high (above 250) [28 ] % high ?(181-250) [ 67] % in range ?(70-180] [ 0] % low (69-55) [0 ] % ?very low (below 54) Interpretation [ ] Exercise: limited Neuropathy: positive numbness and tingling, occ pain takes care of her own feet Nephropathy: 04/2023 microalbumin elevated 126 06/06/2024 EGFR 57 Eye Exam: saw optho in Jan 2023 has appt scheduled not certain if she has retinopathy (form given for opth to complete) 2) hypothyroidism - She had a total thyroidectomy in 2016. In September 2020 TSH was suppressed therefore her levothyroxine was reduced to 125 mcg daily. She was to do labs in 6 weeks time but this was not done. She did have elevated TSH in early May2023 because had been forgetting LT4 frequently. Now she states that she does take the 7 pills a week, one everyday. She had missed 3weeks of dosing when she traveled prior to her last tsh Patient has been taking levothyroxine 125 mcg at 5am for 5 weeks at her last visit. She was again requested to have have labs done to determine if she is on the correct thyroid dosing. She has not had her blood work done [facility] Medical History Osteoporosis History of MRSA infection Port-A-Cath in place Hypokalemia Thyroid disease Insulin pump in place Numbness Cough SOB (shortness of breath) On beta suzanne at home CHF (congestive heart failure) History of chemotherapy Neuropathy Myocardial infarction Breast cancer (~09/2023) Preoperative cardiovascular examination Invasive ductal carcinoma of breast Breast cancer, right Breast mass, right Abnormal finding on mammography Abnormal echocardiogram Abnormal stress ECG with treadmill Hearing deficit CKD (chronic kidney disease) stage 3, GFR 30-59 ml/min Low back pain Bacterial conjunctivitis of both eyes Urine incontinence Well woman exam Pyelonephritis Left navicular fracture of foot Vitamin B12 deficiency Thyroid nodule History of Clostridium difficile infection Coronary artery disease Hypercholesterolemia Depression Kidney stone Carpal tunnel syndrome Arthritis 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 Vitamin D deficiency Essential hypertension Type 2 diabetes mellitus with hyperglycemia Surgical History H/O mastectomy (~07/07/24) History of lumpectomy (~05/2024) History of coronary artery stent placement History of biopsy Hx of colonoscopy S/P triple vessel bypass Hx of toe surgery Hx of thyroidectomy History of renal stent Hx of section Hx of myomectomy Hx of tonsillectomy Family History Father DM (diabetes mellitus) Hypertension High cholesterol Spina bifida Kidney stone CAD (coronary artery disease) Mother DM (diabetes mellitus) Hypertension High cholesterol CAD (coronary artery disease) Bipolar 1 disorder Maternal Aunt Lung cancer Maternal Grandfather Lung cancer Other Mental health disorder Social History Household Members: None Household Members Other:: daughter Housing: Apartment Are you a primary care assistant to a significant other at home: No Do you presently have visiting nurse or other home services: No Alcohol intake: never Patient Tobacco Use Status: Never used Tobacco e-Cigarette/Vaping Use: Never Used Second Hand Smoke Exposure: No service: No Current occupational status: employed Cognitive needs: No Hearing needs: No Vision needs: Yes Female Reproductive History Menstrual Age of Menarche: 11 Physical Exam Vital Signs: Last Vital Signs Pulse 64 09/15/24 14:05 BP 118/64 09/15/24 14:05 Pulse Ox 97 09/15/24 14:05 Oxygen Delivery Method Room Air 09/15/24 14:05 BMI result Body Mass Index 30.8 Const Other: Absence of Cushingoid features. Absence of acromegalic features. Neck exam reveals nl size thyroid about 15 gms. No thyroid nodules palpable. No carotid bruits present. Lungs CTA. Heart S1 S2, Reg R/R. No M/R G. Skin exam reveals absence of vitiligo or acanthosis nigricans. No edema Visual exam of foot performed. No ulcerations or open lesions. No inter digit maceration or fissuring. No onychomycosis, no callouses. Sensation intact to monofilament exam. Vibratory sensation is normal with 128 Hz tuning fork. Results AMB Hemoglobin A1c AMB Hemoglobin A1c 9.5 % Last Edit by DERICK Perez on 09/15/24 14:30 Results Reviewed Results Reviewed: Laboratory Last Values Glucose (Clinic) 230 mg/dL (60-115) H 09/15/24 14:13 Hgb A1c (Clinic) 9.5 % (4.0-6.0) H 09/15/24 14:16 Assessment & Plan Assessment & Plan (1) Type 2 diabetes mellitus with hyperglycemia: Code(s): E11.65 - Type 2 diabetes mellitus with hyperglycemia Category: Medical Qualifiers: Diabetes mellitus termite renewal inspector insulin use: without termite renewal inspector use Qualified Code(s): E11.65 - Type 2 diabetes mellitus with hyperglycemia Plan: 59-year-old type 2 diabetic on Jardiance in an insulin pump with recent A1c of 9.5%. Will restart Mounjaro. The patient had an opportunity to ask questions regarding treatment plan. The patient expressed understanding and agreement with the above treatment plan. The patient is aware they should contact our office by phone for worsening glucose readings or for any low blood sugars which may warrant a change in diabetes medication. Compliance is encouraged with medications and any followup testing/consults which may have been ordered. (2) Postsurgical hypothyroidism: Code(s): E89.0 - Postprocedural hypothyroidism Category: Medical Plan: Her last TSH was grossly elevated last year. At the time she was noncompliant with medications. Recommend repeat tsh free t4 Orders: Orders AMB Hemoglobin A1c 09/15/24 E11.65 - Type 2 diabetes mellitus with hyperglycemia, E89.0 - Postprocedural hypothyroidism, Z13.9 - Encounter for screening, unspecified Medications: New insulin glargine (Lantus Solostar U-100 Insulin) 30 units (0.3 mL) subcut QPM 30 days PRN 9 mL 3RF pump failure/out of supplies MDD 30 units tirzepatide (Mounjaro) 2.5 mg (0.5 mL) subcut QWEEK 4 weeks 2 mL 9RF Discontinued oxycodone Partial Fill upon patient request. Discontinued Reason: No Longer Medically Relevant 5 mg PO Q4H PRN 20 tabs 0RF pain Coding Level of Care Code Est Pt Level 4 (41163) Complex EM visit Add On G2211 Diagnoses Type 2 diabetes mellitus with hyperglycemia, without long-term current use of insulin E11.65 Diabetes mellitus shelter insulin use: without termite renewal inspector use Postsurgical hypothyroidism E89.0 Time Spent (min) 30 Comment Time spent reviewing labs/provider notes, glucose,sensor reports, face to face, chart doc
[2024-09-15 14:05] VITALS: BP 118/64; PULSE 64; O2SAT 97; BMI 30.8
[2024-09-15 14:18] LABS: Glucose, Whole Blood 230 mg/dL (60-115)
--- OUTSIDE RECORDS SUMMARY | 2024-09-15 16:12 | XMS_ITS | Clinical Summary ---
Author Organization [facility] Address [address] [place] [place] [address] Phone Care Team Providers Care Car Inspection And Repair Manager Name Role Phone Dany Rubio MD Primary Care Provider [phone] Allergies Active Allergy Reactions Criticality Noted Date [...] g/dl PVNMA 03/14/2020 us Rtama Conversion LAB [id number] LICITED RESULTS Final Result PVNMA from Last 3 Months or Most Recently Relevant to Health Maintenance Care Teams Car Inspection And Repair Manager Relationship Specialty Start Date End Date Dany Rubio MD [facility] [place] [address] [place] PCP - General 05/30/20
== END 2024-09-15 14:36 | disposition home or self-care (01) ==
LOC: HO.ENCR 14:01
PROVIDERS: PCP Internal Medicine; Visit Provider Nurse Practitioner Adult Health
DX: Z13.9 Encounter for screening, unspecified (principal); E11.65 Type 2 diabetes mellitus with hyperglycemia; E89.0 Postprocedural hypothyroidism

== ENCOUNTER → 2024-09-15 14:00 | Outpatient (BNVA) | payer OTHER, SELFPAY ==
[2024-06-08 11:23] VITALS: BP 100/66; BP 104/60; BP 132/58; BMI 31.3
== END ==
PROVIDERS: PCP Internal Medicine; Visit Provider Nurse Practitioner Adult Health
DX: E11.65 Type 2 diabetes mellitus with hyperglycemia (principal); E89.0 Postprocedural hypothyroidism
CPT/HCPCS: 82947; 83036; 99212

== ENCOUNTER 2024-09-23 15:49 | Outpatient (REF) | payer OTHER, SELFPAY ==
[2024-06-08 11:23] VITALS: BP 100/66; BP 104/60; BP 132/58; BMI 31.3
[2024-09-23 16:51] LABS: Anion Gap 13 (12-20); Blood Urea Nitrogen 23 mg/dL (9-16); Calcium 9.4 mg/dL (8.4-10.2); Carbon Dioxide 25 mmol/L (22-29); Chloride 105 mmol/L (96-108); Estimated Glomerular Filt Rate 34; Potassium 3.5 mmol/L (3.3-5.1); Sodium 139 mmol/L (135-145)
== END 2024-09-23 15:50 | disposition home or self-care (01) ==
LOC: HO.LAB 15:49
PROVIDERS: PCP Internal Medicine; Visit Provider Internal Medicine Hypertension Specialist
DX: N20.0 Calculus of kidney (principal); N18.30 Chronic kidney disease, stage 3 unspecified
CPT/HCPCS: 36415; 80051; 82310; 82565; 84520

== ENCOUNTER 2024-09-24 11:10 | Outpatient (AMB) | payer OTHER, SELFPAY ==
[2024-06-08 11:23] VITALS: BP 100/66; BP 104/60; BP 132/58; BMI 31.3
--- NOTE | 2024-09-24 11:14 | HO.NEPHOV ---
Vital Signs 09/24/24 11:15 Height 5 ft 2 in Weight 166 lb BMI 30.4 BP 90/60 Blood Pressure Location Lt brachial Position Sitting Pulse 82 Pulse Source Pulse Oximeter Pulse Oximetry (%) 97 Oxygen Delivery Method Room Air Intake Visit Reasons: CKD-Conf Manager Research And Development Required: No Accompanied by: Self / Same As Patient Allergies dulaglutide [From TRULICITY] Allergy (Unknown, Verified 09/24/24 11:16) DIARRHEA AND VOMITTING liraglutide [From VICTOZA] Allergy (Unknown, Verified 09/24/24 11:16) DIARRHEA AND VOMITTING, vomiting and diahrrea Medication List - Last Reconciled 09/24/24 by Ritesh Soto MD acetone (urine) test (Ketone Urine Test strips) As directed if glucose running over 250, nausea or vomiting check urine for ketones. If + seek medical attention aspirin (Adult Aspirin Regimen) 81 mg PO DAILY blood pressure monitor (Blood Pressure Kit) As directed blood sugar diagnostic (FreeStyle Lite Strips) DIRECTED THREE TIMES A DAY blood-glucose transmitter (Dexcom G6 Transmitter device) As directed every 3 months blood-glucose,male infertility specialist,cont (Dexcom G6 Painter And Paperhanger Apprentice) As directed calcium carbonate (Calcium 600) 600 mg PO BID cholecalciferol (vitamin D3) 1,250 mcg PO QWEEK Dexcom G6 Sensor (blood-glucose sensor) As directed every 10 days NS docusate sodium 100 mg PO BEDTIME empagliflozin (Jardiance) 10 mg PO DAILY ezetimibe (Zetia) 10 mg PO DAILY furosemide 40 mg PO DAILY 90 days gabapentin 100 mg PO BEDTIME PRN insulin aspart U-100 Up to 150 units via pump subcut daily; 30 days insulin glargine (Lantus Solostar U-100 Insulin) 30 units (0.3 mL) subcut QPM PRN 30 days MDD 30 units insulin syringe-needle U-100 (BD Insulin Syringe Ultra-Fine) As directed use 3 times day levothyroxine 125 mcg PO DAILY metoprolol tartrate 25 mg PO BID 90 days pantoprazole 40 mg PO DAILY PRN pen needle, diabetic (Comfort EZ Pen [place]) As directed potassium chloride ER 1 tab PO BID pyridoxine (vitamin B6) 100 mg PO DAILY rosuvastatin 40 mg PO BEDTIME sennosides (senna) 8.6 mg PO BEDTIME tamoxifen 20 mg PO DAILY tirzepatide (Mounjaro) 2.5 mg (0.5 mL) subcut QWEEK 4 weeks valsartan 80 mg PO DAILY HPI Comments Details: Middle aged woman with long standing DM and HTN and kidney stones with CKD Here for follow up 09/26/23 Last week , her insulin pump stopped working Blood sugar shot up to 645 She was unwell. Went to ER Creatinine was 1.8 ( new bump) Treated with IVF , Blood sugar was controlled to 260 and discharged home No repeat creatinine levels thus far. Admits to drinking 6- 10 bottles of water - includes anna bigg, pepsi and sprite 06/08/24 Invasive ductal cancer, right breast, status post neoadjuvant chemotherapy Procedure: Right breast lumpectomy with Hologic localizer, sentinel node biopsy - on 05/26/24 c/o swelling of legs 09/24/2024 Underwent right mastectomy in June 2024 today she has no new complaints. [facility] Medical History Osteoporosis History of MRSA infection Port-A-Cath in place Hypokalemia Thyroid disease Insulin pump in place Numbness Cough SOB (shortness of breath) On beta suzanne at home CHF (congestive heart failure) History of chemotherapy Neuropathy Myocardial infarction Breast cancer (~09/2023) Preoperative cardiovascular examination Invasive ductal carcinoma of breast Breast cancer, right Breast mass, right Abnormal finding on mammography Abnormal echocardiogram Abnormal stress ECG with treadmill Hearing deficit CKD (chronic kidney disease) stage 3, GFR 30-59 ml/min Low back pain Bacterial conjunctivitis of both eyes Urine incontinence Well woman exam Pyelonephritis Left navicular fracture of foot Vitamin B12 deficiency Thyroid nodule History of Clostridium difficile infection Coronary artery disease Hypercholesterolemia Depression Kidney stone Carpal tunnel syndrome Arthritis 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 Vitamin D deficiency Essential hypertension Type 2 diabetes mellitus with hyperglycemia Surgical History H/O mastectomy (~07/07/24) History of lumpectomy (~05/2024) History of coronary artery stent placement History of biopsy Hx of colonoscopy S/P triple vessel bypass Hx of toe surgery Hx of thyroidectomy History of renal stent Hx of section Hx of myomectomy Hx of tonsillectomy Family History Father DM (diabetes mellitus) Hypertension High cholesterol Spina bifida Kidney stone CAD (coronary artery disease) Mother DM (diabetes mellitus) Hypertension High cholesterol CAD (coronary artery disease) Bipolar 1 disorder Maternal Aunt Lung cancer Maternal Grandfather Lung cancer Other Mental health disorder Social History Household Members: None Household Members Other:: daughter Housing: Apartment Are you a primary care partner to a significant other at home: No Do you presently have visiting nurse or other home services: No Alcohol intake: never Patient Tobacco Use Status: Never used Tobacco e-Cigarette/Vaping Use: Never Used Second Hand Smoke Exposure: No service: No Current occupational status: employed Cognitive needs: No Hearing needs: No Vision needs: Yes Female Reproductive History Menstrual Age of Menarche: 11 Physical Exam Vital Signs: Last Vital Signs Pulse 82 09/24/24 11:15 BP 90/60 09/24/24 11:15 Pulse Ox 97 09/24/24 11:15 Oxygen Delivery Method Room Air 09/24/24 11:15 BMI result Body Mass Index 30.4 Const General: comfortable Nutritional Appearance: well nourished Orientation/consciousness: patient oriented x3 HEENT Head: No normal to inspection Mouth: moist mucous membranes Neck Neck: Yes supple and Yes no JVD Resp Auscultation: clear to auscultation bilaterally and no rales Cardio Jugular venous distension: no JVD Palpation: no palpable S3 and no palpable S4 Heart sounds: no rubs GI Palpation (GI): Soft to palpation and nontender Percussion: No Fluid wave present General: Yes no CVA tenderness Back/Spine/Pelvis Back: no CVA tenderness Skin General skin exam: no rashes or lesions noted Neuro General: patient oriented x3 Extrem General: No no pedal edema and No clubbing Results Reviewed Nephrology Results: Hgb 12.9 g/dl (12.0-16.0) 08/24/24 WBC 10.9 X10*3/uL (4.8-10.8) H 08/24/24 Plt Count 412 X10*3/uL (160-400) H 08/24/24 Sodium 139 mmol/L (135-145) 05/07/25 Potassium 3.5 mmol/L (3.3-5.1) 09/23/24 Chloride 105 mmol/L (96-108) 09/23/24 Carbon Dioxide 25 mmol/L (22-29) 09/23/24 BUN 23 mg/dL (9-16) H 09/23/24 Creatinine 1.56 mg/dL (0.5-1.4) H 09/23/24 Calcium 9.4 mg/dL (8.4-10.2) 09/23/24 Assessment & Plan Assessment & Plan (1) CKD (chronic kidney disease) stage 3, GFR 30-59 ml/min: Code(s): N18.30 - Chronic kidney disease, stage 3 unspecified Category: Medical (2) Renal calculus, bilateral: Code(s): N20.0 - Calculus of kidney Category: Medical Plan Frank in a setting of hyperglycemia CKD - Most likely has diabetic kidney disease Fluctuation in creatinine due to hemodynamics Encouraged low salt diet Avoid nephrotoxins including NSAIDS Maintain A1C < 7% Concur with current medical management including Jardiance Nephrolithiasis 24 hr urine studies reviewed Encouraged to main a urine output of > 2L per 24 hrs Avoid pepsi OK to drink lemonade 09/24/2024 Superimposed FRANK. Serum creatinine is increased from 1.01 up to 1.56. Today blood pressure is rather low. I think she has a component of hypoperfusion. Plan hold valsartan furosemide and potassium supplementation. Encouraged to increase p.o. fluid intake. Recheck renal panel in the next few weeks. Once renal function stabilizes I will restart ARB for renal protection Orders: Orders Basic Metabolic Panel 3 Weeks N18.30 - Chronic kidney disease, stage 3 unspecified Medications: On Hold furosemide Hold Comment: Doctor's Order 40 mg PO DAILY 90 days 90 tabs 1RF I25.10 - Atherosclerotic heart disease of [place] coronary artery without angina pectoris valsartan Hold Comment: Doctor's Order 80 mg PO DAILY 90 tabs 0RF I10 - Essential (primary) hypertension Coding Level of Care Code Est Pt Level 4 (77349) Diagnoses CKD (chronic kidney disease) stage 3, GFR 30-59 ml/min N18.30 Renal calculus, bilateral N20.0
[2024-09-24 11:15] VITALS: BP 90/60; PULSE 82; O2SAT 97; BMI 30.4
--- OUTSIDE RECORDS SUMMARY | 2024-09-24 12:40 | XMS_ITS | Clinical Summary ---
Author Organization [facility] Address [address] [facility] [place] [address] Phone Care Team Providers Care Extension Division Director Name Role Phone Dany Rubio MD Primary Care Provider [phone] Allergies Active Allergy Reactions Criticality Noted Date [...] g/dl PVNMA 03/14/2020 us Rtama Conversion LAB [id number] LICITED RESULTS Final Result PVNMA from Last 3 Months or Most Recently Relevant to Health Maintenance Care Teams Extension Division Director Relationship Specialty Start Date End Date Dany Rubio MD [facility] [place] [address] [place] PCP - General 05/30/20
== END 2024-09-24 11:30 | disposition home or self-care (01) ==
PROVIDERS: PCP Internal Medicine; Visit Provider Internal Medicine Hypertension Specialist
DX: N18.30 Chronic kidney disease, stage 3 unspecified (principal); N20.0 Calculus of kidney
CPT/HCPCS: 99214

== ENCOUNTER → 2024-09-24 11:10 | Outpatient (BNVA) | payer OTHER, SELFPAY ==
[2024-06-08 11:23] VITALS: BP 100/66; BP 104/60; BP 132/58; BMI 31.3
== END ==
PROVIDERS: PCP Internal Medicine; Visit Provider Internal Medicine Hypertension Specialist
DX: E11.22 Type 2 diabetes mellitus with diabetic chronic kidney disease (principal); I12.9 Hypertensive chronic kidney disease with stage 1 through stage 4 chronic kidney disease, or unspecified chronic kidney disease; I25.10 Atherosclerotic heart disease of native coronary artery without angina pectoris; N20.0 Calculus of kidney; N18.30 Chronic kidney disease, stage 3 unspecified
CPT/HCPCS: 99212

== ENCOUNTER 2024-09-29 16:02 | Outpatient (AMB) | payer OTHER, SELFPAY ==
[2024-06-08 11:23] VITALS: BP 100/66; BP 104/60; BP 132/58; BMI 31.3
--- NOTE | 2024-09-29 16:05 | A.OFFVIS_ITS ---
Intake Intake Visit Reasons: DM Pull Out Operator Required: No Accompanied by: Self / Same As Patient Allergies dulaglutide [From TRULICITY] Allergy (Unknown, Verified 09/24/24 11:16) DIARRHEA AND VOMITTING liraglutide [From VICTOZA] Allergy (Unknown, Verified 09/24/24 11:16) DIARRHEA AND VOMITTING, vomiting and diahrrea HPI Comprehensive Diabetes Asmnt Most Recent Diabetes Results: 2 Hemoglobin A1c 8.9 % 06/08/19 Microalb/Creat Ratio 193.8 ug/mg cr (<30) H 05/18/23 Cholesterol 132 mg/dL (<200) 05/18/23 HDL Cholesterol 53 mg/dL (>40) 05/18/23 Triglycerides 71 mg/dL (<150) 05/18/23 Creatinine 1.56 mg/dL (0.5-1.4) H 09/23/24 Blood Urea Nitrogen 23 mg/dL (9-16) H 09/23/24 Sodium 139 mmol/L (135-145) 09/23/24 Potassium 3.5 mmol/L (3.3-5.1) 09/23/24 Chloride 105 mmol/L (96-108) 09/23/24 Carbon Dioxide 25 mmol/L (22-29) 09/23/24 Calcium 9.4 mg/dL (8.4-10.2) 09/23/24 AST 28 U/L (5-31) 08/24/24 ALT 19 U/L (0-31) 08/24/24 Total Protein 7.8 g/dL (6.5-8.0) 08/24/24 Albumin 4.3 g/dL (3.5-5.0) 08/24/24 [facility] Medical History Osteoporosis History of MRSA infection Port-A-Cath in place Hypokalemia Thyroid disease Insulin pump in place Numbness Cough SOB (shortness of breath) On beta suzanne at home CHF (congestive heart failure) History of chemotherapy Neuropathy Myocardial infarction Breast cancer (~09/2023) Preoperative cardiovascular examination Invasive ductal carcinoma of breast Breast cancer, right Breast mass, right Abnormal finding on mammography Abnormal echocardiogram Abnormal stress ECG with treadmill Hearing deficit CKD (chronic kidney disease) stage 3, GFR 30-59 ml/min Low back pain Bacterial conjunctivitis of both eyes Urine incontinence Well woman exam Pyelonephritis Left navicular fracture of foot Vitamin B12 deficiency Thyroid nodule History of Clostridium difficile infection Coronary artery disease Hypercholesterolemia Depression Kidney stone Carpal tunnel syndrome Arthritis 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 Vitamin D deficiency Essential hypertension Type 2 diabetes mellitus with hyperglycemia Surgical History H/O mastectomy (~07/07/24) History of lumpectomy (~05/2024) History of coronary artery stent placement History of biopsy Hx of colonoscopy S/P triple vessel bypass Hx of toe surgery Hx of thyroidectomy History of renal stent Hx of section Hx of myomectomy Hx of tonsillectomy Family History Father DM (diabetes mellitus) Hypertension High cholesterol Spina bifida Kidney stone CAD (coronary artery disease) Mother DM (diabetes mellitus) Hypertension High cholesterol CAD (coronary artery disease) Bipolar 1 disorder Maternal Aunt Lung cancer Maternal Grandfather Lung cancer Other Mental health disorder Social History Household Members: None Household Members Other:: daughter Housing: Apartment Are you a primary medicare contact specialist to a significant other at home: No Do you presently have visiting nurse or other home services: No Alcohol intake: never Patient Tobacco Use Status: Never used Tobacco e-Cigarette/Vaping Use: Never Used Second Hand Smoke Exposure: No service: No Current occupational status: employed Cognitive needs: No Hearing needs: No Vision needs: Yes Female Reproductive History Menstrual Age of Menarche: 11 Assessment & Plan Assessment & Plan (1) Type 2 diabetes mellitus with hyperglycemia: Code(s): E11.65 - Type 2 diabetes mellitus with hyperglycemia Qualifiers: Diabetes mellitus long term care pharmacist insulin use: without shelter use Q ualified Code(s): E11.65 - Type 2 diabetes mellitus with hyperglycemia Plan: Patient presents for pump training for? T slim with control IQ and Dexcom G6 Pt has completed chemotherapy for breast cancer.She is scheduled for additional surgery The following topics were reviewed today: Glucose levels have been running above target, patient was off CGM for approximately 2 weeks but now has resumed Dexcom G6, glucose numbers have improved in the past 5 days. - Sensor setting (if applicable) ??? High Alert:? 300 mg/dl ??? Low Alert:? 80 mg/dl Patient's A1c on 09/15/24 9.5% There still has been no resolution in missing insulin pump. Patient given customer service to for [facility] to discuss replacing missing pump. If this can not be resolved patient has the option to switch insulin pumps and submit a letter of medical necessity to insurance to see if they will cover a different insulin pump. Patient was seen by endocrine EXPERIMENTAL PSYCHOLOGIST on 09/15/2024 insulin pump settings were adjusted, since that visit glucose numbers have improved. Reviewed with patient how to treat low blood sugars with rule of 15s. Patient will also start Ozempic 0.25 mg weekly, insurance does not cover Mounjaro Reviewed instructions below with patient: Insulin/Incretin?Mimetic Education visit Patient Education: Patient was instructed and provided with demonstration of the following: Insulin action and Incretin Mimetics medication storage how to set up medication pen/or syringe and vial Handwashing insulin injection site rotation Site rotation recognizing hypertrophy Testing blood glucose Removing and disposing needle from insulin pen Safe disposal of sharps Target blood sugar Signs/ symptoms/treatment of hypoglycemia/hyperglycemia expiration of open insulin pen Patient verbalized understanding of education provided and was able to demonstrate proper use of inject into injection pillow Reviewed rule of 15s to treat glucose under 70 mg/dL Troubleshooting after starting new pod or inserting new insulin set: Occlusion, adhesive tape sensitivity, redness Check BG 2 hours after site change Reviewed with patient importance of changing insulin delivery set/Pod every 72 hours, with site rotation. Patient given the opportunity to ask questions about pump function No changes to pump settings at this time. Basal rate(s) (units/hour) : 12 AM? to 12 PM? 1.6 units / hr 12 PM? to 12 AM? 1.6 units / hr Bolus setting Insulin Carbohydrate Ratio (s) 12 AM to 12 AM 1:4 Correction Factor / Sensitivity Factor 12 AM? to 12 PM? 1:18 12 AM? to 12 PM? 1:16 Active Insulin Time:? 5 hours Target(s): 12 AM to 12 AM? 110 Medications: Discontinued 2 tirzepatide (Mounjaro) Discontinued Reason: Doctor's Order 2.5 mg (0.5 mL) subcut QWEEK 4 weeks 2 mL 9RF Coding Level of Care Code Est Pt Level 1 (01696) Diagnoses Type 2 diabetes mellitus with hyperglycemia, without long-term current use of insulin E11.65 Diabetes mellitus long term care pharmacist insulin use: without long term care pharmacist use
--- OUTSIDE RECORDS SUMMARY | 2024-09-29 16:34 | XMS_ITS | Clinical Summary ---
Author Organization [facility] Address [address] [place] [place] [address] Phone Care Team Providers Care Core Maker Helper Name Role Phone Dany Rubio MD Primary Care Provider [phone] Allergies Active Allergy Reactions Criticality Noted Date [...] g/dl PVNMA 03/14/2020 us [facility] [id number] LICITED RESULTS Final Result PVNMA from Last 3 Months or Most Recently Relevant to Health Maintenance Care Teams Core Maker Helper Relationship Specialty Start Date End Date Dany Rubio MD [facility] DE [address] [place] PCP - General 05/30/20
== END 2024-09-29 16:32 | disposition home or self-care (01) ==
LOC: HO.ENCR 16:03
PROVIDERS: PCP Internal Medicine; Visit Provider Registered Nurse Diabetes Educator
DX: E11.65 Type 2 diabetes mellitus with hyperglycemia (principal)

== ENCOUNTER → 2024-09-29 16:02 | Outpatient (BNVA) | payer OTHER, SELFPAY ==
[2024-06-08 11:23] VITALS: BP 100/66; BP 104/60; BP 132/58; BMI 31.3
== END ==
PROVIDERS: PCP Internal Medicine; Visit Provider Registered Nurse Diabetes Educator
DX: E11.65 Type 2 diabetes mellitus with hyperglycemia (principal); Z96.41 Presence of insulin pump (external) (internal); Z79.4 Long term (current) use of insulin
CPT/HCPCS: 99211

== ENCOUNTER 2024-10-21 11:16 | Outpatient (REF) | payer OTHER, SELFPAY ==
[2024-06-08 11:23] VITALS: BP 100/66; BP 104/60; BP 132/58; BMI 31.3
[2024-10-21 11:54] LABS: Appearance Urine Clear; Color Urine Yellow; Glucose Urine UA >=1000 mg/dL (Negative); Leukocyte Esterase Urine Negative (Negative); Nitrite Urine Negative (Negative); PH 6.5 (5.0-9.0); Specific Gravity - Urine >= 1.030 (1.005-1.025); UMIC TRIGGER UA YES; Urine Blood Negative (Negative); Urine Ketones Negative (Negative); Urine Protein Negative (Neg-Trace)
[2024-10-21 12:06] LABS: Bacteria Urine None Seen (None Seen); Hyaline Casts Urine 0-2 /LPF (0-2); RBC Urine 0-2 /HPF (0-2); Squamous Epithelial Cell Urine 0-2 /HPF (0-2); WBC Urine 0-5 /HPF (0-5)
--- OUTSIDE RECORDS SUMMARY | 2024-10-21 12:16 | XMS_ITS | Clinical Summary ---
Author Organization [facility] Address [address] [place] [address] Phone Care Team Providers Care Exceptional Student Education Aide Name Role Phone Dany Rubio MD Primary Care Provider [phone] Allergies Active Allergy Reactions Criticality Noted Date [...] g/dl PVNMA 03/14/2020 us [facility] LAB [id number] LICITED RESULTS Final Result PVNMA from Last 3 Months or Most Recently Relevant to Health Maintenance Care Teams Exceptional Student Education Aide Relationship Specialty Start Date End Date Dany Rubio MD [facility] DE [address] [place] PCP - General 05/30/20
== END 2024-10-21 11:17 | disposition home or self-care (01) ==
LOC: HO.LAB 11:16
PROVIDERS: PCP Internal Medicine; Visit Provider Nurse Practitioner Family
DX: N39.0 Urinary tract infection, site not specified (principal)
CPT/HCPCS: 81001; 87086

== ENCOUNTER 2024-10-26 07:07 | Outpatient (REF) | payer OTHER, SELFPAY ==
[2024-06-08 11:23] VITALS: BP 100/66; BP 104/60; BP 132/58; BMI 31.3
[2024-10-26 07:24] LABS: MANUAL DIFF FLAG NO
[2024-10-26 08:15] LABS: Basophils Absolute Auto 0.1 X10*3/uL (0.0-0.2); Eosinophils Absolute Auto 0.2 X10*3/uL (0.0-0.4); Eosinophils Percent Auto 2.2 % (0-4); Hematocrit 40.2 % (37.0-47.0); Hemoglobin 12.7 g/dl (12.0-16.0); Imm Gran Abs Auto 0.05 X10*3/uL (0.00-0.03); Imm Gran Pct Auto 0.6 % (0.0-0.4); Immature Retic Fraction 14.6 % (3.0-15.9); Lymphocytes Percent Auto 22.4 % (20-40); Mean Corpuscular HGB Conc 31.6 g/dl (31.0-35.0); Mean Corpuscular Hemoglobin 27.9 pg (27.0-33.0); Mean Corpuscular Volume 88.2 fL (80.0-98.0); Mean Platelet Volume 11.6 fL (9.4-12.3); Monocytes Absolute Auto 0.8 X10*3/uL (0.1-1.2); Monocytes Percent Auto 8.8 % (2-11); Neutrophils Absolute Auto 5.7 x10*3/uL (2.0-8.3); Platelet Count 299 X10*3/uL (160-400); Red Blood Count 4.56 X10*6/uL (4.20-5.50); Red Cell Distribution Width 16.2 % (11.0-16.0); Retic HGB Equivalent 31.5 pg (30.0-35.0); Reticulocyte Percent 1.7 % (0.5-1.8); Reticulocytes Absolute 0.076 X10*6/uL (0.026-0.095); White Blood Count 8.8 X10*3/uL (4.8-10.8)
[2024-10-26 08:31] LABS: B Type Natriuretic Peptide 22 pg/mL (<100)
[2024-10-26 08:42] LABS: Creatinine Urine 40.65 mg/dL; Microalbum/Creatinine Ratio Ur 93.4 ug/mg cr (<30)
[2024-10-26 08:43] LABS: Alanine Aminotransferase 23 U/L (0-31); Albumin Level 4.1 g/dL (3.5-5.0); Anion Gap 11 (12-20); Aspartate Amino Transferase 21 U/L (5-31); Bilirubin Total 0.2 mg/dL (0.0-1.0); Blood Urea Nitrogen 26 mg/dL (9-16); Calcium 8.8 mg/dL (8.4-10.2); Carbon Dioxide 23 mmol/L (22-29); Chloride 109 mmol/L (96-108); Cholesterol 175 mg/dL (<200); Estimated Glomerular Filt Rate > 60; Glucose Random 262 mg/dL (60-115); HDL Cholesterol 51 mg/dL (>40); Iron 42 mcg/dL (30-160); LDL Cholesterol Calculated 97 mg/dL (<100); Percent Iron Saturation 17 % (15-50); Potassium 3.8 mmol/L (3.3-5.1); Sodium 139 mmol/L (135-145); Total Iron Binding Capacity 245 mcg/dL (228-428); Total Protein 6.8 g/dL (6.5-8.0); Triglycerides 136 mg/dL (<150); Unsaturated Iron Binding 203 ug/dL
[2024-10-26 08:44] LABS: Anion Gap 10 (12-20); Blood Urea Nitrogen 26 mg/dL (9-16); Carbon Dioxide 23 mmol/L (22-29); Chloride 110 mmol/L (96-108); Estimated Glomerular Filt Rate > 60; Glucose Random 262 mg/dL (60-115); Sodium 139 mmol/L (135-145)
[2024-10-26 08:53] LABS: Ferritin 32 ng/mL (10-250); Free T4 (Free Thyroxine) 1.49 ng/dL (0.71-1.85); Vitamin D 25-OH Total 62.5 ng/mL (>30)
[2024-10-26 09:01] LABS: Thyroid Stimulating Hormone 14.31 uIU/mL (0.32-4.0)
[2024-10-26 09:04] LABS: Folate 7.8 ng/mL (> or = 4.0); Vitamin B12 347 pg/mL (200-900)
[2024-10-26 09:08] LABS: Alkaline Phosphatase 76 U/L (39-117)
== END 2024-10-26 07:08 | disposition home or self-care (01) ==
LOC: HO.LAB 07:07
PROVIDERS: Absent Provider Internal Medicine; PCP Internal Medicine; Visit Provider Internal Medicine Hypertension Specialist
DX: E11.65 Type 2 diabetes mellitus with hyperglycemia (principal); E89.0 Postprocedural hypothyroidism; E78.00 Pure hypercholesterolemia, unspecified; I25.5 Ischemic cardiomyopathy; I12.9 Hypertensive chronic kidney disease with stage 1 through stage 4 chronic kidney disease, or unspecified chronic kidney disease; E11.22 Type 2 diabetes mellitus with diabetic chronic kidney disease; N18.30 Chronic kidney disease, stage 3 unspecified; N20.0 Calculus of kidney; I25.10 Atherosclerotic heart disease of native coronary artery without angina pectoris; K21.9 Gastro-esophageal reflux disease without esophagitis; D12.6 Benign neoplasm of colon, unspecified
CPT/HCPCS: 36415; 80048; 80053; 80061; 82043; 82306; 82570; 82607; 82728; 82746; 83540; 83880; 84439; 84443; 85025; 85045; 99212

== ENCOUNTER 2024-10-26 15:18 | Outpatient (AMB) | payer OTHER, SELFPAY ==
[2024-06-08 11:23] VITALS: BP 100/66; BP 104/60; BP 132/58; BMI 31.3
--- NOTE | 2024-10-26 15:21 | HO.NEPHOV_ITS ---
Vital Signs 10/26/24 15:24 Height 5 ft 2 in Weight 170 lb 2 oz BMI 31.1 BP 164/80 H Blood Pressure Location Lt brachial Position Sitting Pulse 71 Pulse Source Pulse Oximeter Pulse Oximetry (%) 97 Oxygen Delivery Method Room Air Intake Visit Reasons: 1 MO FU Practice Billing Associate Required: No Accompanied by: Self / Same As Patient Allergies dulaglutide [From TRULICITY] Allergy (Unknown, Verified 10/26/24 15:23) DIARRHEA AND VOMITTING liraglutide [From VICTOZA] Allergy (Unknown, Verified 10/26/24 15:23) DIARRHEA AND VOMITTING, vomiting and diahrrea Medication List - Last Reconciled 10/26/24 by Ritesh Soto MD acetone (urine) test (Ketone Urine Test strips) As directed if glucose running over 250, nausea or vomiting check urine for ketones. If + seek medical attention aspirin (Adult Aspirin Regimen) 81 mg PO DAILY blood pressure monitor (Blood Pressure Kit) As directed blood sugar diagnostic (FreeStyle Lite Strips) DIRECTED THREE TIMES A DAY blood-glucose transmitter (Dexcom G6 Transmitter device) As directed every 3 months blood-glucose,ui software developer,cont (Dexcom G6 Warehouse Team Member) As directed calcium carbonate (Calcium 600) 600 mg PO BID cholecalciferol (vitamin D3) 1,250 mcg PO QWEEK Dexcom G6 Sensor (blood-glucose sensor) As directed every 10 days NS docusate sodium 100 mg PO BEDTIME empagliflozin (Jardiance) 10 mg PO DAILY ezetimibe (Zetia) 10 mg PO DAILY furosemide 40 mg PO DAILY 90 days gabapentin 100 mg PO BEDTIME PRN insulin aspart U-100 Up to 150 units via pump subcut daily; 30 days insulin glargine (Lantus Solostar U-100 Insulin) 30 units (0.3 mL) subcut QPM PRN 30 days MDD 30 units insulin syringe-needle U-100 (BD Insulin Syringe Ultra-Fine) As directed use 3 times day levothyroxine 125 mcg PO DAILY metoprolol tartrate 25 mg PO BID 90 days pantoprazole 40 mg PO DAILY PRN pen needle, diabetic (Comfort EZ Pen Baring) As directed pyridoxine (vitamin B6) 100 mg PO DAILY rosuvastatin 40 mg PO BEDTIME semaglutide (Ozempic) 0.25 mg (0.187 mL) subcut QWEEK 28 days sennosides (senna) 8.6 mg PO BEDTIME tamoxifen 20 mg PO DAILY tamsulosin 0.4 mg PO BEDTIME 30 days valsartan 80 mg PO DAILY HPI Comments Details: Middle aged woman with long standing DM and HTN and kidney stones with CKD Here for follow up 09/26/23 Last week , her insulin pump stopped working Blood sugar shot up to 645 She was unwell. Went to ER Creatinine was 1.8 ( new bump) Treated with IVF , Blood sugar was controlled to 260 and discharged home No repeat creatinine levels thus far. Admits to drinking 6- 10 bottles of water - includes anna bigg, pepsi and sprite 06/08/24 Invasive ductal cancer, right breast, status post neoadjuvant chemotherapy Procedure: Right breast lumpectomy with Hologic localizer, sentinel node biopsy - on 05/26/24 c/o swelling of legs 09/24/2024 Underwent right mastectomy in June 2024 today she has no new complaints. 10/26/24 59-year-old female presenting for a follow-up on her kidney function and management of hypertension and hypothyroidism. After holding Lasix/Valsartan , Creatinine normalized - down from 1.56 to 0.9 Her kidney function had previously been impaired, prompting the discontinuation of several medications, including potassium supplements, furosemide, and valsartan. Following these adjustments, her renal function markedly improved. Blood pressure is being monitored to determine when it might be appropriate to reintroduce antihypertensive therapy, specifically valsartan. She historically experienced leg swelling, mostly linked to prolonged standing; however, presently, she denies any significant edema. Thyroid levels were reported to be abnormal, needing reassessment and likely adjustment of levothyroxine by her primer inserting machine operator. The patient underwent surgery a month ago with current post-surgical improvements in her premorbid kidney function, now marked at over 60%. She remains in good health with no surgical complications and maintains normal hemoglobin levels. [facility] Medical History Osteoporosis History of MRSA infection Port-A-Cath in place Hypokalemia Thyroid disease Insulin pump in place Numbness Cough SOB (shortness of breath) On beta suzanne at home CHF (congestive heart failure) History of chemotherapy Neuropathy Myocardial infarction Breast cancer (~09/2023) Preoperative cardiovascular examination Invasive ductal carcinoma of breast Breast cancer, right Breast mass, right Abnormal finding on mammography Abnormal echocardiogram Abnormal stress ECG with treadmill Hearing deficit CKD (chronic kidney disease) stage 3, GFR 30-59 ml/min Low back pain Bacterial conjunctivitis of both eyes Urine incontinence Well woman exam Pyelonephritis Left navicular fracture of foot Vitamin B12 deficiency Thyroid nodule History of Clostridium difficile infection Coronary artery disease Hypercholesterolemia Depression Kidney stone Carpal tunnel syndrome Arthritis 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 Vitamin D deficiency Essential hypertension Type 2 diabetes mellitus with hyperglycemia Surgical History H/O mastectomy (~07/07/24) History of lumpectomy (~05/2024) History of coronary artery stent placement History of biopsy Hx of colonoscopy S/P triple vessel bypass Hx of toe surgery Hx of thyroidectomy History of renal stent Hx of section Hx of myomectomy Hx of tonsillectomy Family History Father DM (diabetes mellitus) Hypertension High cholesterol Spina bifida Kidney stone CAD (coronary artery disease) Mother DM (diabetes mellitus) Hypertension High cholesterol CAD (coronary artery disease) Bipolar 1 disorder Maternal Aunt Lung cancer Maternal Grandfather Lung cancer Other Mental health disorder Social History Household Members: None Household Members Other:: daughter Housing: Apartment Are you a primary animal care assistant to a significant other at home: No Do you presently have visiting nurse or other home services: No Alcohol intake: never Patient Tobacco Use Status: Never used Tobacco e-Cigarette/Vaping Use: Never Used Second Hand Smoke Exposure: No service: No Current occupational status: employed Cognitive needs: No Hearing needs: No Vision needs: Yes Female Reproductive History Menstrual Age of Menarche: 11 Physical Exam Vital Signs: Last Vital Signs Pulse 71 10/26/24 15:24 BP 164/80 H 10/26/24 15:24 Pulse Ox 97 10/26/24 15:24 Oxygen Delivery Method Room Air 10/26/24 15:24 BMI result Body Mass Index 31.1 Const General: comfortable Nutritional Appearance: well nourished Orientation/consciousness: patient oriented x3 HEENT Head: No normal to inspection Mouth: moist mucous membranes Neck Neck: Yes supple and Yes no JVD Resp Auscultation: clear to auscultation bilaterally and no rales Cardio Jugular venous distension: no JVD Palpation: no palpable S3 and no palpable S4 Heart sounds: no rubs GI Palpation (GI): Soft to palpation and nontender Percussion: No Fluid wave present General: Yes no CVA tenderness Back/Spine/Pelvis Back: no CVA tenderness Skin General skin exam: no rashes or lesions noted Neuro General: patient oriented x3 Extrem General: No no pedal edema and No clubbing Results Reviewed Nephrology Results: Hgb 12.7 g/dl (12.0-16.0) 10/26/24 WBC 8.8 X10*3/uL (4.8-10.8) 10/26/24 Plt Count 299 X10*3/uL (160-400) 10/26/24 Sodium 139 mmol/L (135-145) 10/26/24 Potassium 4.0 mmol/L (3.3-5.1) 10/26/24 Chloride 110 mmol/L (96-108) H 10/26/24 Carbon Dioxide 23 mmol/L (22-29) 10/26/24 BUN 26 mg/dL (9-16) H 10/26/24 Creatinine 0.92 mg/dL (0.5-1.4) 10/26/24 Calcium 9.0 mg/dL (8.4-10.2) 10/26/24 Urine Protein Negative mg/dL (Neg-Trace) 10/21/24 Urine Creatinine 40.65 mg/dL 10/26/24 Assessment & Plan Assessment & Plan (1) CKD (chronic kidney disease) stage 3, GFR 30-59 ml/min: Code(s): N18.30 - Chronic kidney disease, stage 3 unspecified Category: Medical (2) Renal calculus, bilateral: Code(s): N20.0 - Calculus of kidney Category: Medical Plan Frank in a setting of hyperglycemia CKD - Most likely has diabetic kidney disease Fluctuation in creatinine due to hemodynamics Encouraged low salt diet Avoid nephrotoxins including NSAIDS Maintain A1C < 7% Concur with current medical management including Jardiance Nephrolithiasis 24 hr urine studies reviewed Encouraged to main a urine output of > 2L per 24 hrs Avoid pepsi OK to drink lemonade Superimposed FRANK. Serum creatinine is increased from 1.01 up to 1.56. After holding Valsartan and Lasix, renal functin is back to normal BP is elevated No edema As expected, BP is sub optimal Plan Restart valsartan 80 mg Continue to hold furosemide and potassium supplementation. Encouraged to increase p.o. fluid intake. Recheck renal panel in 2- 3 months TSH elevated- need to adjust Levothyroxine; She has an appointment with Endocrine tomorrow Orders: Orders Basic Metabolic Panel 3 Months Ritesh Soto MD N20.0 - Calculus of kidney Medications: Resumed valsartan 80 mg PO DAILY 90 tabs 0RF Lorenver O Po, I10 - Essential (primary) hypertension Coding Level of Care Code Est Pt Level 4 (41792) Diagnoses CKD (chronic kidney disease) stage 3, GFR 30-59 ml/min N18.30 Renal calculus, bilateral N20.0
[2024-10-26 15:24] VITALS: BP 164/80; PULSE 71; O2SAT 97; BMI 31.1
--- OUTSIDE RECORDS SUMMARY | 2024-10-26 17:03 | XMS_ITS | Clinical Summary ---
Author Organization [facility] Address [address] [place] [address] Phone Care Team Providers Care [facility] Former Name Role Phone Dany Rubio MD Primary Care Provider [phone] Allergies Active Allergy Reactions Criticality Noted Date [...] g/dl PVNMA 03/14/2020 us Rtama Conversion LAB [id number] LICITED RESULTS Final Result PVNMA from Last 3 Months or Most Recently Relevant to Health Maintenance Care Teams [facility] Former Relationship Specialty Start Date End Date Dany Rubio MD [facility] [place] [address] [place] PCP - General 05/30/20
== END 2024-10-26 15:30 | disposition home or self-care (01) ==
LOC: HO.HKA 15:19
PROVIDERS: PCP Internal Medicine; Visit Provider Internal Medicine Hypertension Specialist
DX: N18.30 Chronic kidney disease, stage 3 unspecified (principal); N20.0 Calculus of kidney
CPT/HCPCS: 99214

== ENCOUNTER 2024-10-26 16:40 | Outpatient (AMB) | payer OTHER, SELFPAY ==
[2024-06-08 11:23] VITALS: BP 100/66; BP 104/60; BP 132/58; BMI 31.3
[2024-10-26 16:41] VITALS: BP 120/86; PULSE 66; O2SAT 96; BMI 30.9
--- NOTE | 2024-10-26 16:41 | A.OFFPC_ITS ---
Vital Signs 10/26/24 16:41 Height 5 ft 2 in Weight 169 lb 2 oz BMI 30.9 BP 120/86 Blood Pressure Location Lt brachial Position Sitting Pulse 66 Pulse Source Pulse Oximeter Pulse Oximetry (%) 96 Oxygen Delivery Method Room Air Intake Visit Reasons: DM, breast cancer, cardiomyopa chronic kidney dis State Pilot Required: No Accompanied by: Self / Same As Patient Allergies dulaglutide [From TRULICITY] Allergy (Unknown, Verified 10/26/24 16:42) DIARRHEA AND VOMITTING liraglutide [From VICTOZA] Allergy (Unknown, Verified 10/26/24 16:42) DIARRHEA AND VOMITTING, vomiting and diahrrea Tobacco use date assessed: 10/26/24 Dental Screening Dental Screen Date: 10/26/24 Did you have a dental visit in the last 12 months?: No Did you have a dental problem in the last 6 months where you did not have access to dental care?: No Was dental information given to patient?: No HPI DM, breast cancer, cardiomyopa chronic kidney dis HPI Details Just prescribed Ozempic PFSH Medical History Osteoporosis History of MRSA infection Port-A-Cath in place Hypokalemia Thyroid disease Insulin pump in place Numbness Cough SOB (shortness of breath) On beta suzanne at home CHF (congestive heart failure) History of chemotherapy Neuropathy Myocardial infarction Breast cancer (~09/2023) Preoperative cardiovascular examination Invasive ductal carcinoma of breast Breast cancer, right Breast mass, right Abnormal finding on mammography Abnormal echocardiogram Abnormal stress ECG with treadmill Hearing deficit CKD (chronic kidney disease) stage 3, GFR 30-59 ml/min Low back pain Bacterial conjunctivitis of both eyes Urine incontinence Well woman exam Pyelonephritis Left navicular fracture of foot Vitamin B12 deficiency Thyroid nodule History of Clostridium difficile infection Coronary artery disease Hypercholesterolemia Depression Kidney stone Carpal tunnel syndrome Arthritis 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 Vitamin D deficiency Essential hypertension Type 2 diabetes mellitus with hyperglycemia Surgical History H/O mastectomy (~07/07/24) History of lumpectomy (~05/2024) History of coronary artery stent placement History of biopsy Hx of colonoscopy S/P triple vessel bypass Hx of toe surgery Hx of thyroidectomy History of renal stent Hx of section Hx of myomectomy Hx of tonsillectomy Family History Father DM (diabetes mellitus) Hypertension High cholesterol Spina bifida Kidney stone CAD (coronary artery disease) Mother DM (diabetes mellitus) Hypertension High cholesterol CAD (coronary artery disease) Bipolar 1 disorder Maternal Aunt Lung cancer Maternal Grandfather Lung cancer Other Mental health disorder Social History Household Members: None Household Members Other:: daughter Housing: Apartment Are you a primary career law clerk to a significant other at home: No Do you presently have visiting nurse or other home services: No Alcohol intake: never Patient Tobacco Use Status: Never used Tobacco e-Cigarette/Vaping Use: Never Used Second Hand Smoke Exposure: No service: No Current occupational status: employed Cognitive needs: No Hearing needs: No Vision needs: Yes Female Reproductive History Menstrual Age of Menarche: 11 Questionnaire PHQ-9 Over the last 2 weeks, how often have you been bothered by any of the following problems? 1. Little interest or pleasure in doing things: several days 2. Feeling down, depressed, or hopeless: not at all 3. Trouble falling or staying asleep, or sleeping too much: several days 4. Feeling tired or having little energy: several days 5. Poor appetite or overeating: not at all 6. Feeling bad about yourself - or that you are a failure or have let yourself or your family down: not at all 7. Trouble concentrating on things, such as reading the newspaper or watching television: not at all 8. Moving or speaking so slowly that other people could have noticed. Or the opposite - being so fidgety or restless that you have been moving around a lot more than usual: not at all 9. Thoughts that you would be better off or of hurting yourself in some way: not at all Total score: 3 Source: Developed by Drs. Suleiman John, Addie Reeves, Tonny Ramos and colleagues, with an educational dmitriy from [employer]. Thrive Questionnaire Date Thrive assessed: 10/26/24 I am a: Patient What is your living situation today?: I have a steady place to live Within the past 12 months, did the food you bought not last and you didn't have the money to get more?: I choose not to answer this question Within the past 12 months, did you worry whether your food would run out before you got money to buy more?: I choose not to answer this question Do you have trouble paying for medicines?: I choose not to answer this question Do you have trouble getting transportation to medical appointments?: No Do you have trouble paying your heating and electricity bill?: I choose not to answer this question Do you have trouble taking care of your child, family member or friend?: No Do you have trouble with day-to-day activities such as bathing, preparing meals, shopping, managing finances, etc.?: I choose not to answer this question Are you currently unemployed and looking for a job?: No Are you interested in more education?: No Please select the resources that you would like help with: None Currently or been in a relationship where the following occur: No concerns reported THRIVE Score: 0 AUDIT C Alcohol Use Questionnaire (AUDIT-C) 1. How often do you have a drink containing alcohol?: Never 3. How often do you have six or more drinks on one occasion?: Never Total Score: 0 HERB-7 AMB Questionnaire HERB-7 Date HERB - 7 assessed: 10/26/24 Feeling nervous, anxious, or on edge: 0 = Not at all Not being able to stop or control worryin = Not at all Worrying too much about different things: 0 = Not at all Trouble relaxin = Not at all Being so restless that it is hard to sit still: 0 = Not at all Becoming easily annoyed or irritable: 1 = Several days Feeling afraid as if something awful might happen: 0 = Not at all Total HERB-7 score (0-4 normal; 5-9 mild; 10-14 moderate; 15-21 severe): 1 Source: Developed by Drs. Suleiman John, Addie Reeves, Tonny Ramos and colleagues, with an educational dmitriy from [employer]. Physical exam (Primary Care) Vital Signs: Last Vital Signs Pulse 66 10/26/24 16:41 BP 120/86 10/26/24 16:41 Pulse Ox 96 10/26/24 16:41 Oxygen Delivery Method Room Air 10/26/24 16:41 BMI result Body Mass Index 30.9 Tobacco/Smoking Status: Tobacco use Status Tobacco use date assessed 10/26/24 10/26/24 16:43 Patient Tobacco Use Status Never used Tobacco 10/26/24 16:43 e-Cigarette/Vaping Use Never Used 10/26/24 16:43 PHQ-9: PHQ-9 Score PHQ-9: Total score 3 10/26/24 17:02 Thrive Assessment: Date of Thrive Assessment Date Thrive assessed 10/26/24 10/26/24 16:43 Currently or been in a relationship where the following occur: No concerns reported Const General: alert; No acute distress Eyes Conjunctivae: conjunctivae normal Resp Auscultation: clear to auscultation bilaterally Cardio Rate: regular rate Rhythm: regular rhythm GI Inspection: Yes normal to inspection Extrem General: Yes normal to inspection and No edema Coding Level of Care Code Est Pt Level 4 (04922) Complex EM visit Add On G2211 Diagnoses Type 2 diabetes mellitus with hyperglycemia, without long-term current use of insulin E11.65 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 transplanted heart: [place] heart Kidney stone N20.0 Postsurgical hypothyroidism E89.0 Essential hypertension I10 CKD (chronic kidney disease) stage 3, GFR 30-59 ml/min N18.30 Invasive ductal carcinoma of breast C50.919 Gastroesophageal reflux disease, unspecified whether esophagitis present K21.9 Esophagitis presence: esophagitis presence not specified Tubular adenoma of colon D12.6 Assessment & Plan Assessment & Plan (1) Type 2 diabetes mellitus with hyperglycemia: Code(s): E11.65 - Type 2 diabetes mellitus with hyperglycemia Category: Medical Qualifiers: Diabetes mellitus senior care insulin use: without senior care use Qualified Code(s): E11.65 - Type 2 diabetes mellitus with hyperglycemia Plan: Decrease the amount of carbohydrate intake, pasta, bread, rice and potatoes are all sugar and that is aside from all the sweet stuff, remember that fruits are good but they are Sweet also. Patient follows up with endocrinology and is on the insulin pump. (2) Hypercholesterolemia: Code(s): E78.00 - Pure hypercholesterolemia, unspecified Category: Medical Plan: Avoid fried foods, chicken skin, eggs, butter margarine, pastries and meat. Be it pork or beef they have a lot of cholesterol LDL goal of less than 70 and triglyceride of less than 150 on Zetia and rosuvastatin 40 mg once a day (3) Coronary artery disease: Comment: Catheterization stent placement September 2014, CABG 12/2021 Code(s): I25.10 - Atherosclerotic heart disease of [place] coronary artery without angina pectoris Category: Medical Qualifiers: Associated angina: without angina Coronary Disease-Associated Artery/Lesion type: [place] artery [place] vs. transplanted heart: [place] heart Qualified Code(s): I25.10 - Atherosclerotic heart disease of [place] coronary artery without angina pectoris Plan: Control the cholesterol, weight, blood pressure, diabetes continue with aspirin 81 mg once a day (4) Kidney stone: Code(s): N20.0 - Calculus of kidney Category: Medical Plan: Patient follows up with urology as well as Nephrology keep well hydrated (5) Postsurgical hypothyroidism: Code(s): E89.0 - Postprocedural hypothyroidism Category: Medical Plan: Adjustment of thyroid medication done as the TSH is still high. Patient admits to taking thyroid medication irregularly and discussed about how to get the blood work at goal. Patient is aware and will be more compliant with the medication. (6) Essential hypertension: Code(s): I10 - Essential (primary) hypertension Category: Medical Plan: Continue with blood pressure medication. Decrease salt intake and exercise continue with valsartan 80 mg once a day metoprolol 25 mg twice a day (7) CKD (chronic kidney disease) stage 3, GFR 30-59 ml/min: Code(s): N18.30 - Chronic kidney disease, stage 3 unspecified Category: Medical Plan: Continue to follow-up with Nephrology hydrochlorothiazide taken out and placed back valsartan. Continue to monitor renal function (8) Invasive ductal carcinoma of breast: Comment: October 2023 right breast, right breast mastectomy June 2024 Code(s): C50.919 - Malignant neoplasm of unspecified site of unspecified female breast Category: Medical Plan: Continue to follow-up with Hematology-Oncology on tamoxifen concern about bone density and referred to Endocrinology (9) GERD (gastroesophageal reflux disease): Code(s): K21.9 - Gastro-esophageal reflux disease without esophagitis Category: Medical Qualifiers: Esophagitis presence: esophagitis presence not specified Qualified Code(s): K21.9 - Gastro-esophageal reflux disease without esophagitis Plan: Avoid the foods that causes that usually spicy foods, tomato products, juices, c offee, soda and foods that your sensitive to. After eating do not lie down, allow 3-4 hours before in lie down. And keep the head of bed above 30 degrees to avoid the acid from going up. (10) Tubular adenoma of colon: Code(s): D12.6 - Benign neoplasm of colon, unspecified Category: Medical Plan: Patient is reminded about colonoscopy Plan History of Present Illness The patient is a 59-year-old female presenting with follow-up care for her diabetes mellitus and chronic kidney disease management. She uses an insulin pump for diabetes control, with recent adjustments noted during an endocrinology follow-up. Her hypertension and coronary artery disease are under control with medications. Chronic kidney disease stage 3 is being managed with nephrology consultations, showing renal function near normal levels. The LDL cholesterol level remains slightly elevated, and adjustments in her statin regimen have been made. She has persistent hypothyroidism requiring ongoing medication adjustment. The patient's breast cancer history includes treatment with right mastectomy and current management with tamoxifen for osteoporosis. GERD management adherence was emphasized alongside dietary modifications. Surveillance for colon health continues, considering her history of tubular adenoma. Her nephrolithiasis is approached with increased fluid intake and monitoring. Health Maintenance - Surveillance colonoscopy recommended due to history of tubular adenoma. - Continuous monitoring and adjustment of insulin therapy. - Management of hypothyroidism with regular thyroid function tests. - Chronic disease management includes blood pressure, cholesterol, and kidney function monitoring. - Bone density considerations due to osteoporosis. Social History Review of Systems - Endocrine: Reports persistent high TSH levels. - Cardiovascular: Reports hypertension and coronary artery disease. - Gastrointestinal: Reports GERD; advised to follow dietary recommendations and medication adherence. - Genitourinary: Reports history of nephrolithiasis. - Neurologic: Denies symptoms other than those associated with nephrolithiasis. Physical Exam Results - Labs: HbA1c (August 2024) - 9.5%, Blood glucose - 262 mg/dL. - Labs: Renal function at 0.92. - Labs: Elevated LDL at 97 mg/dL. - Tests: Normal blood count, normal platelets, normal white blood cell count, normal electrolytes back to baseline. Plan Management of the patient's chronic conditions continues with focused therapies: Insulin therapy is adjusted as needed for optimal glycemic control. Kidney function and hypertension remain dougherty considerations, with current medications prescribed. Her lipid profile requires ongoing intervention, and thyroid function is monitored closely for any necessary adjustments. Continuation of tamoxifen is advised due to her cancer treatment history. Lifestyle adherence and symptom management remain critical for GERD and nephrolithiasis prevention. Surveillance colonoscopies are stressed for her colon health due to previous adenomas. Patient was informed and verbally consented to the use of an ambient scribe for clinic note documentation during this visit. Discussion Notes We reviewed her comprehensive care plan, focusing on diabetes control, hypertension, and the implications of chronic kidney disease management. Emphasizing the importance of ongoing renal monitoring and careful vascular condition management due to coronary artery disease, we discussed the continuation of statin therapy with adherence to LDL-reducing strategies. Thyroid treatment needs further assessment considering high TSH levels, while bone health continues under tamoxifen due to her oncological history. Continued dietary supplementation of vitamin D was recommended due to osteoporosis risk. Follow-up and monitoring for GERD and nephrolithiasis are planned and addressed thoroughly. A thorough discussion ensued about timely colonoscopic interventions to monitor her gastrointestinal health. Patient Instructions - Continue with current insulin regimen and follow updated dosages. - Maintain dietary and lifestyle changes to support GERD management. - Adhere to prescribed hypertension and cholesterol medications. - Follow up with nephrology and endocrinology as scheduled. - Stay hydrated to help prevent kidney stones. - Schedule and attend prescribed colonoscopy for colon health. - Take medications as directed, especially for thyroid, to manage current levels. - Return in three months for continued management and follow-up care. Orders: Orders Free T4 (Free Thyroxine) 6 Weeks E89.0 - Postprocedural hypothyroidism Thyroid Stimulating Hormone 6 Weeks E89.0 - Postprocedural hypothyroidism Hemoglobin A1c 6 Weeks E89.0 - Postprocedural hypothyroidism Comprehensive Met. Panel 6 Weeks E89.0 - Postprocedural hypothyroidism Medications: Changed From insulin syringe-needle U-100 (BD Insulin Syringe Ultra-Fine) As directed use 3 times day 100 ea 4RF E89.0 - Postprocedural hypothyroidism To insulin syringe-needle U-100 As directed use 3 times day 100 ea 4RF E89.0 - Postprocedural hypothyroidism Refilled insulin aspart U-100 Up to 150 units via pump subcut daily; 50 mL 6RF 30 days E11.65 - Type 2 diabetes mellitus with hyperglycemia
== END 2024-10-26 17:35 | disposition home or self-care (01) ==
LOC: HO.HMCH 16:41
PROVIDERS: PCP Internal Medicine; Visit Provider Internal Medicine
DX: I10 Essential (primary) hypertension (principal); E11.65 Type 2 diabetes mellitus with hyperglycemia; N18.30 Chronic kidney disease, stage 3 unspecified; C50.919 Malignant neoplasm of unspecified site of unspecified female breast; E78.00 Pure hypercholesterolemia, unspecified; I25.10 Atherosclerotic heart disease of native coronary artery without angina pectoris; N20.0 Calculus of kidney; E89.0 Postprocedural hypothyroidism; K21.9 Gastro-esophageal reflux disease without esophagitis; D12.6 Benign neoplasm of colon, unspecified

== ENCOUNTER 2024-10-27 16:04 | Outpatient (AMB) | payer OTHER, SELFPAY ==
[2024-06-08 11:23] VITALS: BP 100/66; BP 104/60; BP 132/58; BMI 31.3
--- NOTE | 2024-10-27 08:14 | MHC.OFFVIS ---
Vital Signs 10/27/24 16:07 Height 5 ft 2 in Weight 167 lb 8.821 oz BMI 30.6 BP 150/86 H Blood Pressure Location Rt brachial Position Sitting Pulse 72 Pulse Source Pulse Oximeter Pulse Oximetry (%) 98 Oxygen Delivery Method Room Air Intake Visit Reasons: DM Intake Note: Patient presents today for a follow-up on Type 2 Diabetes Mellitus: Last Diabetic eye exam was on: 02/11/2024 at [facility] Last Podiatry exam was on: Patient does not see a Procedure Analyst Most recent HbA1c: 9.5%, 09/15/2024 Random Glucose- 110 mg/dL, Today Level Glass Forming Machine Operator Required: No Accompanied by: Self / Same As Patient Allergies dulaglutide [From TRULICITY] Allergy (Unknown, Verified 10/27/24 16:09) DIARRHEA AND VOMITTING liraglutide [From VICTOZA] Allergy (Unknown, Verified 10/27/24 16:09) DIARRHEA AND VOMITTING, vomiting and diahrrea HPI Comments Details: Patient is a 59 yo female with DM type 2 diagnosed over 20 years ago who presents for continued management of diabetes. She was last seen 09/15/24 for diabetes. Insulin pump settings had been changed to give additional insulin for both carbohydrates and for correction factor, she has completed chemotherapy for breast cancer She was also followed by Dr. Hargrove for osteoporosis and was last seen 1 month ago with a follow up in October. 1) Diabetes - A1C most recent 09/15/24 9.5%, 04/20/24 8.8%, 11.8% 12/12/23. Previous 8.8% 2022. Dexcom average glucose:171 14 day continuous glucose monitor report reviewed TIme in ranges: Six % very high (above 250) 30 % high ?(181-250) 64 % in range ?(70-180] 0 % low (69-55) 0 % ?very low (below 54) Interpretation : Improving glycemic control, encouraged to enter carbs 20 minutes before meal if possible Basal 49% 36.7 bolus 51% 38.8 Previous treatment: Metformin ER stopped due to GI upset, Took Trulicity and Victoza and had GI intolerance in 2014 Diabetes medications: Novolog via T-slim X 2 with control IQ and Dexcom pump, Jardiance 10 mg QD Ozempic 0.25mg weekly Basal rate(s) (units/hour) : 12 AM? to 12 PM? 1.6 units / hr 12 PM? to 12 AM? 1.6 units / hr Bolus setting Insulin Carbohydrate Ratio (s) 12 AM to 12 PM 1:4.2 12 PM to 12 AM 1:4.2 Correction Factor / Sensitivity Factor 12 AM? to 12 PM? 1:20 12 PM? to 12 AM? 1:18 Active Insulin Time:? 4.0 Target(s): 12 AM to 12 AM? 110 Exercise: limited Neuropathy: positive numbness and tingling, occ pain takes care of her own feet Nephropathy: 04/2023 microalbumin elevated 126 06/06/2024 eGFR 57 10/26/24 Eye Exam: has appt scheduled not certain if she has retinopathy (form given for opth to complete) she is due in january Most recent ldl 97 10/26/24 2) hypothyroidism - She had a total thyroidectomy in 2016 She has had high tsh in the past secondary to non compliance. [facility] Medical History Osteoporosis History of MRSA infection Port-A-Cath in place Hypokalemia Thyroid disease Insulin pump in place Numbness Cough SOB (shortness of breath) On beta suzanne at home CHF (congestive heart failure) History of chemotherapy Neuropathy Myocardial infarction Breast cancer (~09/2023) Preoperative cardiovascular examination Invasive ductal carcinoma of breast Breast cancer, right Breast mass, right Abnormal finding on mammography Abnormal echocardiogram Abnormal stress ECG with treadmill Hearing deficit CKD (chronic kidney disease) stage 3, GFR 30-59 ml/min Low back pain Bacterial conjunctivitis of both eyes Urine incontinence Well woman exam Pyelonephritis Left navicular fracture of foot Vitamin B12 deficiency Thyroid nodule History of Clostridium difficile infection Coronary artery disease Hypercholesterolemia Depression Kidney stone Carpal tunnel syndrome Arthritis 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 Vitamin D deficiency Essential hypertension Type 2 diabetes mellitus with hyperglycemia Surgical History H/O mastectomy (~07/07/24) History of lumpectomy (~05/2024) History of coronary artery stent placement History of biopsy Hx of colonoscopy S/P triple vessel bypass Hx of toe surgery Hx of thyroidectomy History of renal stent Hx of section Hx of myomectomy Hx of tonsillectomy Family History Father DM (diabetes mellitus) Hypertension High cholesterol Spina bifida Kidney stone CAD (coronary artery disease) Mother DM (diabetes mellitus) Hypertension High cholesterol CAD (coronary artery disease) Bipolar 1 disorder Maternal Aunt Lung cancer Maternal Grandfather Lung cancer Other Mental health disorder Social History Household Members: None Household Members Other:: daughter Housing: Apartment Are you a primary acute care physical therapist to a significant other at home: No Do you presently have visiting nurse or other home services: No Alcohol intake: never Patient Tobacco Use Status: Never used Tobacco e-Cigarette/Vaping Use: Never Used Second Hand Smoke Exposure: No service: No Current occupational status: employed Cognitive needs: No Hearing needs: No Vision needs: Yes Female Reproductive History Menstrual Age of Menarche: 11 Physical Exam Vital Signs: Last Vital Signs Pulse 72 10/27/24 16:07 BP 150/86 H 10/27/24 16:07 Pulse Ox 98 10/27/24 16:07 Oxygen Delivery Method Room Air 10/27/24 16:07 BMI result Body Mass Index 30.6 Const Other: Absence of Cushingoid features. Absence of acromegalic features. Neck exam reveals nl size thyroid about 15 gms. No thyroid nodules palpable. Heart S1 S2, Reg R/R. No M/R G. Skin exam reveals absence of vitiligo or acanthosis nigricans. No edema Visual exam of foot performed. No ulcerations or open lesions. No inter digit maceration or fissuring. No onychomycosis, no callouses. Sensation intact to monofilament exam. Vibratory sensation is normal with 128 Hz tuning fork. Results Reviewed Results Reviewed: Laboratory Last Values Glucose (Clinic) 110 mg/dL (60-115) 10/27/24 16:13 Assessment & Plan Assessment & Plan (1) Type 2 diabetes mellitus with hyperglycemia: Code(s): E11.65 - Type 2 diabetes mellitus with hyperglycemia Category: Medical Qualifiers: Diabetes mellitus [facility] insulin use: without marine oil terminal superintendent use Qualified Code(s): E11.65 - Type 2 diabetes mellitus with hyperglycemia Plan: 59-year-old type 2 diabetic with nephropathy on an insulin pump. She was encouraged to routine the enter all of her carbs 20 minutes before the meal to prevent her sugars from rising. Symptoms of DKA (diabetic ketoacidosis): early: frequent urination, dry mouth, fatigue, feeling ill, severe symptoms: ketones in the urine, abdominal pain, nausea, vomiting and weakness. It is important to hydrate with sugar free liquids every 15-30 minutes and bring the sugars down to normal levels. If you are moderate or severe with ketones or unable to bring glucose to less than 200, go to the emergency room. will check TSH to see if she needs adjustment Coding Level of Care Code Est Pt Level 4 (61858) Complex EM visit Add On G2211 Diagnoses Type 2 diabetes mellitus with hyperglycemia, without long-term current use of insulin E11.65 Diabetes mellitus [facility] insulin use: without marine oil terminal superintendent use Time Spent (min) 30 Comment Time spent reviewing labs/provider notes, face to face, chart doc
[2024-10-27 16:07] VITALS: BP 150/86; PULSE 72; O2SAT 98; BMI 30.6
[2024-10-27 16:17] LABS: Glucose, Whole Blood 110 mg/dL (60-115)
--- OUTSIDE RECORDS SUMMARY | 2024-10-27 18:51 | XMS_ITS | Clinical Summary ---
Author Organization [facility] Address [address] [facility] [place] [address] Phone Care Team Providers Care Ocean Freight Manager Name Role Phone Dany Rubio MD Primary Care Provider [phone] Allergies Active Allergy Reactions Criticality Noted Date [...] g/dl PVNMA 03/14/2020 us [facility] Conversion LAB [id number] LICITED RESULTS Final Result PVNMA from Last 3 Months or Most Recently Relevant to Health Maintenance Care Teams Ocean Freight Manager Relationship Specialty Start Date End Date Dany Rubio MD [facility] [place] [address] [place] PCP - General 05/30/20
== END 2024-10-27 16:40 | disposition home or self-care (01) ==
LOC: HO.ENCR 16:05
PROVIDERS: PCP Internal Medicine; Visit Provider Nurse Practitioner Adult Health
DX: E11.65 Type 2 diabetes mellitus with hyperglycemia (principal)
CPT/HCPCS: 99214; G2211

== ENCOUNTER → 2024-10-27 16:04 | Outpatient (BNVA) | payer OTHER, SELFPAY ==
[2024-06-08 11:23] VITALS: BP 100/66; BP 104/60; BP 132/58; BMI 31.3
== END ==
PROVIDERS: PCP Internal Medicine; Visit Provider Nurse Practitioner Adult Health
DX: E11.65 Type 2 diabetes mellitus with hyperglycemia (principal)
CPT/HCPCS: 82947; 99212

== ENCOUNTER 2024-10-29 16:08 | Outpatient (REF) | payer OTHER, SELFPAY ==
[2024-06-08 11:23] VITALS: BP 100/66; BP 104/60; BP 132/58; BMI 31.3
--- NOTE | ~2024-10-29 | US_ITS ---
EXAMINATION: US KIDNEY BILATERAL HISTORY: N20.0 - Calculus of kidney TECHNIQUE: Real-time grayscale ultrasound imaging of the kidneys was performed and images were reviewed. COMPARISON: Comparison is made with the prior examination dated 09/11/2023. FINDINGS: Right kidney: The right kidney measures 10.7 x 4.7 x 4.6 cm. Renal parenchymal echotexture and thickness are normal. There are no masses. There is a 4 x 3 x 7 mm nonobstructing calculus in the interpolar region there is mild caliectasis. Left Kidney: The left kidney measures 12.2 x 6.0 x 4.8 cm. Renal parenchymal echotexture and thickness are normal. There are no masses. There is a 5 x 6 x 5 mm nonobstructing calculus in the interpolar region and a 4 x 3 x 4 mm nonobstructing calculus at the lower pole. There is no hydronephrosis. US/US renal BI IMPRESSION: Bilateral nephrolithiasis as described. Mild right caliectasis. Electronically signed by: Suleiman El MD 10/30/2024 07:17 AM EDT
--- OUTSIDE RECORDS SUMMARY | 2024-10-29 18:14 | XMS_ITS | Clinical Summary ---
Author Organization [facility] Address [address] [facility] [place] [address] Phone Care Team Providers Care Credentialing Coordinator Name Role Phone Dany Rubio MD Primary Care Provider [phone] Allergies Active Allergy Reactions Criticality Noted Date [...] g/dl PVNMA 03/14/2020 us [facility] Conversion LAB [id number] LICITED RESULTS Final Result PVNMA from Last 3 Months or Most Recently Relevant to Health Maintenance Care Teams Credentialing Coordinator Relationship Specialty Start Date End Date Dany Rubio MD [facility] [place] [address] [place] PCP - General 05/30/20
== END 2024-10-29 16:09 | disposition home or self-care (01) ==
LOC: HO.US 16:08
PROVIDERS: PCP Internal Medicine; Visit Provider Nurse Practitioner Family
DX: N20.0 Calculus of kidney (principal)
CPT/HCPCS: 76775

== ENCOUNTER → 2024-10-29 16:10 | Outpatient (BNV) | payer OTHER, SELFPAY ==
[2024-06-08 11:23] VITALS: BP 100/66; BP 104/60; BP 132/58; BMI 31.3
== END ==
PROVIDERS: PCP Internal Medicine; Visit Provider Radiology Diagnostic Radiology
DX: N20.0 Calculus of kidney (principal)
CPT/HCPCS: 76775

== ENCOUNTER 2024-11-05 15:37 | Outpatient (REF) | payer OTHER, SELFPAY ==
[2024-06-08 11:23] VITALS: BP 100/66; BP 104/60; BP 132/58; BMI 31.3
[2024-11-12 10:51] LABS: HPV Genotype 16 Negative (Negative); HPV Genotype 18 Negative (Negative); HPV High Risk Negative (Negative)
== END 2024-11-05 15:38 | disposition home or self-care (01) ==
LOC: HO.LNP 15:37
PROVIDERS: PCP Internal Medicine; Visit Provider Obstetrics & Gynecology
DX: Z01.419 Encounter for gynecological examination (general) (routine) without abnormal findings (principal)
CPT/HCPCS: 87626; 88175; 99396

== ENCOUNTER 2024-11-05 15:37 | Outpatient (AMB) | payer OTHER, SELFPAY ==
[2024-06-08 11:23] VITALS: BP 100/66; BP 104/60; BP 132/58; BMI 31.3
--- NOTE | 2024-11-05 15:40 | A.OFFVIS_ITS ---
Vital Signs 11/05/24 15:41 Height 5 ft 2 in Weight 167 lb BMI 30.5 BP 130/70 Intake Visit Reasons: annual Level Vial Inspector And Tester Required: No Information Interpreted: non-clinical & clinical Earth Observations Chief Scientist: Earth Observations Chief Scientist Present (Radha SEPULVEDA) Accompanied by: Self / Same As Patient Allergies dulaglutide (From TRULICITY) Allergy (Unknown, Verified 11/05/24 15:44) DIARRHEA AND VOMITTING liraglutide (From VICTOZA) Allergy (Unknown, Verified 11/05/24 15:44) DIARRHEA AND VOMITTING, vomiting and diahrrea Post menopausal: Yes HPI Comments Details: Presenting for annual exam. No complaints. Last Pap/HPV was negative in 11/06 Last Mammogram in 09/10 was BI-RADS 5 which led to a biopsy and diagnose of right breast cancer [facility] Medical History Osteoporosis History of MRSA infection Port-A-Cath in place Hypokalemia Thyroid disease Insulin pump in place Numbness Cough SOB (shortness of breath) On beta suzanne at home CHF (congestive heart failure) History of chemotherapy Neuropathy Myocardial infarction Breast cancer (~09/2023) Preoperative cardiovascular examination Invasive ductal carcinoma of breast Breast cancer, right Breast mass, right Abnormal finding on mammography Abnormal echocardiogram Abnormal stress ECG with treadmill Hearing deficit CKD (chronic kidney disease) stage 3, GFR 30-59 ml/min Low back pain Bacterial conjunctivitis of both eyes Urine incontinence Well woman exam Pyelonephritis Left navicular fracture of foot Vitamin B12 deficiency Thyroid nodule History of Clostridium difficile infection Coronary artery disease Hypercholesterolemia Depression Kidney stone Carpal tunnel syndrome Arthritis 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 Vitamin D deficiency Essential hypertension Type 2 diabetes mellitus with hyperglycemia Surgical History H/O mastectomy (~07/07/24) History of lumpectomy (~05/2024) History of coronary artery stent placement History of biopsy Hx of colonoscopy S/P triple vessel bypass Hx of toe surgery Hx of thyroidectomy History of renal stent Hx of section Hx of myomectomy Hx of tonsillectomy Family History Father DM (diabetes mellitus) Hypertension High cholesterol Spina bifida Kidney stone CAD (coronary artery disease) Mother DM (diabetes mellitus) Hypertension High cholesterol CAD (coronary artery disease) Bipolar 1 disorder Maternal Aunt Lung cancer Maternal Grandfather Lung cancer Other Mental health disorder Social History Household Members: None Household Members Other:: daughter Housing: Apartment Are you a primary manager career to a significant other at home: No Do you presently have visiting nurse or other home services: No Alcohol intake: never Patient Tobacco Use Status: Never used Tobacco e-Cigarette/Vaping Use: Never Used Second Hand Smoke Exposure: No service: No Current occupational status: employed Cognitive needs: No Hearing needs: No Vision needs: Yes Female Reproductive History Menstrual Age of Menarche: 11 Date of last pap smear: 10/26/19 Date of Mammogram: 06/11/24 Review of Systems Const All systems reviewed & are unremarkable except as noted in HPI and below Card Reports as per HPI Resp Reports as per HPI GI Reports as per HPI and Reports no additional complaints Reports as per HPI Physical Exam Const General: cooperative, healthy appearing and comfortable Chest Chest palpation & inspection: abnormal inspection of the chest (Right breast scarring status post mastectomy) and normal palpation of entire chest wall Breast/axilla inspection: inspection of breasts abnormal (Right surgically absent) and normal inspection of the axillae Breast/axilla palpation: palpation of the breasts abnormal (Normal left breast, right breast absent post mastectomy), normal palpation of the axillae and no axillary lymphadenopathy Resp Effort & Inspection: normal respiratory effort Auscultation: clear to auscultation bilaterally Percussion: percussion normal Cardio Palpation: normal PMI Rate: regular rate Rhythm: regular rhythm Heart sounds: no murmurs and no rubs Peripheral pulses: Peripheral pulses 2+ throughout GI Inspection: Yes normal to inspection Palpation (GI): Soft to palpation, nontender, no guarding, not rigid and No hepatosplenomegaly present Percussion: Yes normal to percussion Auscultation: normal bowel sounds Rectal Exam - Female: deferred General: Yes bladder normal to palpation External Female Exam: No lesion Speculum Exam - Vagina: normal appearance of the vagina, normal palpation, normal vaginal discharge and not erythematous Speculum Exam - Cervix: normal appearance of the cervix and normal palpation Bimanual exam- vagina & uterus: normal bimanual exam, normal palpation, uterine size normal, bladder normal to palpation, consistency normal and normal palpation Bimanual Exam- Adnexa, other: normal adnexae, no masses and no tenderness Assessment & Plan Assessment & Plan (1) Well woman exam: Code(s): Z01.419 - Encounter for gynecological examination (general) (routine) without abnormal findings Category: Medical Plan: Co testing done. Counseled the patient about the recommended dietary allowance of 1200 mg of Calcium & 600 IU of vitamin D. Mammogram scheduled for Saturday and a follow-up appointment with Dr. Shine The patient was referred to GI for screening colonoscopy . The patient was instructed to perform monthly self-breast exams and schedule annual exam in a year. All questions answered and the patient verbalized understanding. Orders: Referrals 2 Gastroenterology Referral Z12.11 - Encounter for screening for malignant neoplasm of colon Coding Level of Care Code Est Pt Prev Care 40-64y(98196) Diagnoses Well woman exam Z01.419
[2024-11-05 15:41] VITALS: BP 130/70; BMI 30.5
--- OUTSIDE RECORDS SUMMARY | 2024-11-05 16:45 | XMS_ITS | Clinical Summary ---
Author Organization [facility] Address [address] [place] [place] [address] Phone Care Team Providers Care Paper Tester Name Role Phone Dany Rubio MD Primary Care Provider [phone] Allergies Active Allergy Reactions Criticality Noted Date [...] g/dl PVNMA 03/14/2020 us Rtama Conversion LAB [id number] LICITED RESULTS Final Result PVNMA from Last 3 Months or Most Recently Relevant to Health Maintenance Care Teams Paper Tester Relationship Specialty Start Date End Date Dany Rubio MD [facility] [place] [address] [place] PCP - General 05/30/20
== END 2024-11-05 16:04 | disposition home or self-care (01) ==
LOC: HO.HWS 15:37
PROVIDERS: PCP Internal Medicine; Visit Provider Obstetrics & Gynecology
DX: Z01.419 Encounter for gynecological examination (general) (routine) without abnormal findings (principal)
CPT/HCPCS: 99396; 99459

== ENCOUNTER 2024-11-09 11:11 | Outpatient (AMB) | payer OTHER, SELFPAY ==
[2024-11-05 16:06] VITALS: BP 100/66; BP 104/60; BP 132/58; BMI 31.3
--- NOTE | 2024-11-09 11:26 | A.OFFVIS_ITS ---
VS Expanded 11/09/24 11:26 Height 5 ft 2 in Weight 164 lb 3.91 oz BMI 30.0 Intake Visit Reasons: T2DM Allergies dulaglutide (From TRULICITY) Allergy (Unknown, Verified 11/11/24 11:41) DIARRHEA AND VOMITTING liraglutide (From VICTOZA) Allergy (Unknown, Verified 11/11/24 11:41) DIARRHEA AND VOMITTING, vomiting and diahrrea Nutrition Presentation Details: Pt presents for MNT f/u for T2DM Pt reports having good appetite , reports underestimating carbohydrate intake, and not bolus taking a meal bolus if and when having second servings of a meal or snack reports night snacks: cereals with milk /ice cream or fruit smoothies reports eating out more frequently,choosing fried foods food frequency fruits: 0-1/d vegetables: lettuce/tomato once/wk dairy 2-3/d fish 1x/wk beverages:water, soda diet or non ,tea, fruit juices physical activity: ADL etoh/smoking: denies BS Monitoring Most Recent Diabetes Results: Microalb/Creat Ratio, (<30) 93.4 ug/mg cr H 10/26/24 Cholesterol, (<200) 175 mg/dL 10/26/24 HDL Cholesterol, (>40) 51 mg/dL 10/26/24 Triglycerides, (<150) 136 mg/dL 10/26/24 Creatinine, (0.5-1.4) 0.92 mg/dL 10/26/24 BUN, (9-16) 26 mg/dL H 10/26/24 Sodium, (135-145) 139 mmol/L 10/26/24 Potassium, (3.3-5.1) 4.0 mmol/L 10/26/24 Chloride, (96-108) 110 mmol/L H 10/26/24 Carbon Dioxide, (22-29) 23 mmol/L 10/26/24 Calcium, (8.4-10.2) 9.0 mg/dL 10/26/24 AST, (5-31) 21 U/L 10/26/24 ALT, (0-31) 23 U/L 10/26/24 Total Protein, (6.5-8.0) 6.8 g/dL 10/26/24 Albumin, (3.5-5.0) 4.1 g/dL 10/26/24 UYB-Hkhzwdk-AoCecille Equation Height: 5 ft 2 in Weight: 164 lb Resting Metabolic Rate: 1271.20 Calculated Activity Level: Sedentary Calories Needed to Maintain Weight: 1525.44 [facility] Medical History Osteoporosis History of MRSA infection Port-A-Cath in place Hypokalemia Thyroid disease Insulin pump in place Numbness Cough SOB (shortness of breath) On beta suzanne at home CHF (congestive heart failure) History of chemotherapy Neuropathy Myocardial infarction Breast cancer (~09/2023) Preoperative cardiovascular examination Invasive ductal carcinoma of breast Breast cancer, right Breast mass, right Abnormal finding on mammography Abnormal echocardiogram Abnormal stress ECG with treadmill Hearing deficit CKD (chronic kidney disease) stage 3, GFR 30-59 ml/min Low back pain Bacterial conjunctivitis of both eyes Urine incontinence Well woman exam Pyelonephritis Left navicular fracture of foot Vitamin B12 deficiency Thyroid nodule History of Clostridium difficile infection Coronary artery disease Hypercholesterolemia Depression Kidney stone Carpal tunnel syndrome Arthritis 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 Vitamin D deficiency Essential hypertension Type 2 diabetes mellitus with hyperglycemia Surgical History H/O mastectomy (~07/07/24) History of lumpectomy (~05/2024) History of coronary artery stent placement History of biopsy Hx of colonoscopy S/P triple vessel bypass Hx of toe surgery Hx of thyroidectomy History of renal stent Hx of section Hx of myomectomy Hx of tonsillectomy Family History Father DM (diabetes mellitus) Hypertension High cholesterol Spina bifida Kidney stone CAD (coronary artery disease) Mother DM (diabetes mellitus) Hypertension High cholesterol CAD (coronary artery disease) Bipolar 1 disorder Maternal Aunt Lung cancer Maternal Grandfather Lung cancer Other Mental health disorder Social History Household Members: None Household Members Other:: daughter Housing: Apartment Are you a primary patient care provider to a significant other at home: No Do you presently have visiting nurse or other home services: No Alcohol intake: never Patient Tobacco Use Status: Never used Tobacco e-Cigarette/Vaping Use: Never Used Second Hand Smoke Exposure: No service: No Current occupational status: employed Cognitive needs: No Hearing needs: No Vision needs: Yes Female Reproductive History Menstrual Age of Menarche: 11 Assessment & Plan Assessment & Plan (1) Type 2 diabetes mellitus with diabetic polyneuropathy: Code(s): E11.42 - Type 2 diabetes mellitus with diabetic polyneuropathy Category: Medical Plan: Wt: 77 Kg ( 08/11 ), 09/11, 74.5 (11/11) Est kcal needs as per MSJ: 1500- 1800 (40% carb, 30% protein/fat) Est fluid needs as per 25-30 ml/d: 2200 Est prot per day as per 1 g/kg bw: 75 Recommend fiber intake : 8-10 g per day and gradually increase to 25-28 g per day for women and 35-38 g for men or as tolerated Recommend sodium intake per day : less than 2000 mg Educated patient on: ( R = reviewed V = verbalizes understanding N/R = needs review N/A = not applicable * Food sources of carbohydrate, adequate serving sizes and its role in various health conditions: R V * Differences between complex carbohydrates a simple carbohydrates, role of fiber in diet: R V * Lean protein sources of foods: R V * Differences between types of fats and role in diet (mono on saturated fat fatty acids, saturated fatty acids, trans fats): R * Food sources of sodium in salt and healthy modifications for heart health in kidney health: R V * Vitamins and minerals: R * Healthy plate method concept: R V * Physical activity: Benefits a precaution: R * Hypoglycemia protocol (rule of 15): R * Dietary prevention of Hyperglycemia: R Patient Instructions: Choose yogurt with fruit (20 g carb), modify fruit smoothie: opt for 1 fruit and 2 vegetables as bedtime snack continue working on choosing low fat foods (baked vs fried, remove batter) Continue working on prevention of elevated blood sugar by entering best estimate of total carbohydrate, carry a fruit or nuts instead of having second servings (choosing lower carbohydrate options) Coding Level of Care Code Nutr Indiv Subseq (28597) Diagnoses Type 2 diabetes mellitus with diabetic polyneuropathy E11.42 Time Spent (min) 30
--- OUTSIDE RECORDS SUMMARY | 2024-11-09 12:47 | XMS_ITS | Clinical Summary ---
Author Organization [facility] Address [address] [facility] [place] [address] Phone Care Team Providers Care Check Cashier Name Role Phone Dany Rubio MD Primary Care Provider [phone] Allergies Active Allergy Reactions Criticality Noted Date [...] g/dl PVNMA 03/14/2020 us Rtama Conversion LAB [id number] LICITED RESULTS Final Result PVNMA from Last 3 Months or Most Recently Relevant to Health Maintenance Care Teams Check Cashier Relationship Specialty Start Date End Date Dany Rubio MD [facility] [place] [address] [place] PCP - General 05/30/20
== END 2024-11-09 11:53 | disposition home or self-care (01) ==
LOC: HO.ENCR 11:12
PROVIDERS: PCP Internal Medicine; Visit Provider Dietitian, Registered
DX: E11.42 Type 2 diabetes mellitus with diabetic polyneuropathy (principal)

== ENCOUNTER 2024-11-09 12:02 | Outpatient (REF) | payer OTHER, SELFPAY ==
[2024-11-05 16:06] VITALS: BP 100/66; BP 104/60; BP 132/58; BMI 31.3
== END 2024-11-09 12:03 | disposition home or self-care (01) ==
LOC: HO.MAMMO 12:02
PROVIDERS: PCP Internal Medicine; Visit Provider Surgery
DX: E11.42 Type 2 diabetes mellitus with diabetic polyneuropathy (principal); Z71.3 Dietary counseling and surveillance
CPT/HCPCS: 97803

== ENCOUNTER 2024-11-11 11:35 | Outpatient (AMB) | payer OTHER, SELFPAY ==
[2024-11-05 16:06] VITALS: BP 100/66; BP 104/60; BP 132/58; BMI 31.3
--- NOTE | 2024-11-11 11:37 | A.OFFVIS_ITS ---
Vital Signs 11/11/24 11:40 Height 5 ft 2.09 in Weight 164 lb 7.437 oz BMI 30.0 BP 136/96 H Blood Pressure Location Lt brachial Position Sitting Pulse 84 Pulse Source Pulse Oximeter Pulse Oximetry (%) 98 Oxygen Delivery Method Room Air Intake Visit Reasons: f/u osteoporosis Intake Note: Patient present today for Osteoporosis follow up. Hogshead Hand Required: No Accompanied by: Self / Same As Patient Allergies dulaglutide (From TRULICITY) Allergy (Unknown, Verified 11/11/24 11:41) DIARRHEA AND VOMITTING liraglutide (From VICTOZA) Allergy (Unknown, Verified 11/11/24 11:41) DIARRHEA AND VOMITTING, vomiting and diahrrea Medication List - Last Reconciled 11/11/24 by Suleiman Hargrove MD acetone (urine) test (Ketone Urine Test strips) As directed if glucose running over 250, nausea or vomiting check urine for ketones. If + seek medical attention aspirin (Adult Aspirin Regimen) 81 mg PO DAILY blood pressure monitor (Blood Pressure Kit) As directed blood sugar diagnostic (FreeStyle Lite Strips) DIRECTED THREE TIMES A DAY blood-glucose transmitter (Dexcom G6 Transmitter device) As directed every 3 months blood-glucose,criminal justice social worker,cont (Dexcom G6 Service Trainer) As directed calcium carbonate (Calcium 600) 600 mg PO BID cholecalciferol (vitamin D3) 1,250 mcg PO QWEEK Dexcom G6 Sensor (blood-glucose sensor) As directed every 10 days NS docusate sodium 100 mg PO BEDTIME empagliflozin (Jardiance) 10 mg PO DAILY ezetimibe (Zetia) 10 mg PO DAILY furosemide 40 mg PO DAILY 90 days Held on 09/24/24. Instructions: Doctor's Order gabapentin 100 mg PO BEDTIME PRN insulin aspart U-100 Up to 150 units via pump subcut daily; 30 days insulin glargine (Lantus Solostar U-100 Insulin) 30 units (0.3 mL) subcut QPM PRN 30 days MDD 30 units insulin syringe-needle U-100 As directed use 3 times day levothyroxine 125 mcg PO DAILY metoprolol tartrate 25 mg PO BID 90 days pantoprazole 40 mg PO DAILY PRN pen needle, diabetic (Comfort EZ Pen [place]) As directed pyridoxine (vitamin B6) 100 mg PO DAILY rosuvastatin 40 mg PO BEDTIME semaglutide (Ozempic) 0.25 mg (0.187 mL) subcut QWEEK 28 days sennosides (senna) 8.6 mg PO BEDTIME tamoxifen 20 mg PO DAILY tamsulosin 0.4 mg PO BEDTIME 30 days valsartan 80 mg PO DAILY HPI Comments Details: 59 YO Female is seen in consultation at the request of PCP for Osteoporosis. The patient is a 59-year-old female presenting with osteoporosis as identified from recent testing. Her osteoporosis was noted about a month ago with testing revealing a T-score of -2.7. She has no reported history of fractures, but the diagnosis is of concern especially due to her ongoing breast cancer treatment with tamoxifen, which may further decrease bone density. The patient has a pertinent family history of osteoporosis, with both her mother and aunt affected. The patient is aware of her dietary intake of calcium and vitamin D, although she has not been consistently taking her prescribed calcium medication, having been prescribed calcium carbonate 600 mg to be taken twice daily. She reports vitamin D3 2000 IU adherence. GERD symptoms are self-managed pr edominantly through dietary adjustments. First diagnosed in just recently . Not Received treatment in the past No history of pathologic fracture or ONJ. Has several servings of dietary calcium per day in the form of cheese . Not Takes Calcium supplement Takes 2000 IU of Vitamin D daily. The patient's diet includes some sources of calcium, such as cottage cheese, though not consumed regularly. She is informed about maintaining a dietary calcium intake of 1200 mg daily and uses a guide to check her food intake. She has been encouraged to achieve most calcium intake through dietary sources rather than supplements. Takes PPI, anticoagulant, antiepileptic or glucocorticoid medication. Takes Tamoxifen for breast cancer .- Calcium supplements: Previously prescribed calcium carbonate 600 mg twice daily but not consistently taken. - Vitamin D supplementation: Vitamin D3 2000 IU daily as per patient report. - Tamoxifen: Recently initiated roughly a week ago for breast cancer treatment, intended for five-year therapy. - Proton Pump Inhibitors: Pantoprazole used as needed for GERD. 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 Not UTD on dental cleanings and sees dentist every 6 months. No planned upcoming dental work or extractions. DXA dated 06/11/24 :EXAMINATION: DXA BONE DENSITY AXIAL HISTORY: Estrogen deficiency TECHNIQUE: [employer] Dual energy absorptiometry (DEXA) of the lumbar spine, total left hip, and femoral neck was performed. COMPARISON: There are no prior studies for comparison. FINDINGS: The bone mineral density of the lumbar spine is 0.995 with a T-score of -1.5, and a Z-score of -0.7. The bone mineral density of the left total hip is 0.755 with a T-score of -2.0, and a Z-score of -1.4. The bone mineral density of the left femoral neck is 0.643 with a T-score of -2.8, and a Z-score of -1.8. FRACTURE RISK: The FRAX index suggests a risk of major osteoporotic fracture of 9.5%, and of hip fracture 2.4%. MM/XR DEXA axial skeleton IMPRESSION: Based on bone mineral density, and according to World Health Organization (WHO) criteria, the diagnosis is consistent with osteoporosis. Labs: Secondary workup was negative The patient is a 59-year-old female presenting with osteoporosis management and preventative care related to breast cancer treatment. She has been taking tamoxifen for breast cancer, which is known to cause bone loss, leading to a concern for osteoporosis and potential fractures. The patient reports a history of gastroesophageal reflux disease, which is exacerbated by certain foods and beverages such as grapefruit, orange, soda, and coffee. She describes the reflux as not terrible but noticeable when consuming these items. [facility] Medical History Osteoporosis History of MRSA infection Port-A-Cath in place Hypokalemia Thyroid disease Insulin pump in place Numbness Cough SOB (shortness of breath) On beta suzanne at home CHF (congestive heart failure) History of chemotherapy Neuropathy Myocardial infarction Breast cancer (~09/2023) Preoperative cardiovascular examination Invasive ductal carcinoma of breast Breast cancer, right Breast mass, right Abnormal finding on mammography Abnormal echocardiogram Abnormal stress ECG with treadmill Hearing deficit CKD (chronic kidney disease) stage 3, GFR 30-59 ml/min Low back pain Bacterial conjunctivitis of both eyes Urine incontinence Well woman exam Pyelonephritis Left navicular fracture of foot Vitamin B12 deficiency Thyroid nodule History of Clostridium difficile infection Coronary artery disease Hypercholesterolemia Depression Kidney stone Carpal tunnel syndrome Arthritis 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 Vitamin D deficiency Essential hypertension Type 2 diabetes mellitus with hyperglycemia Surgical History H/O mastectomy (~07/07/24) History of lumpectomy (~05/2024) History of coronary artery stent placement History of biopsy Hx of colonoscopy S/P triple vessel bypass Hx of toe surgery Hx of thyroidectomy History of renal stent Hx of section Hx of myomectomy Hx of tonsillectomy Family History Father DM (diabetes mellitus) Hypertension High cholesterol Spina bifida Kidney stone CAD (coronary artery disease) Mother DM (diabetes mellitus) Hypertension High cholesterol CAD (coronary artery disease) Bipolar 1 disorder Maternal Aunt Lung cancer Maternal Grandfather Lung cancer Other Mental health disorder Social History Household Members: None Household Members Other:: daughter Housing: Apartment Are you a primary resident caregiver to a significant other at home: No Do you presently have visiting nurse or other home services: No Alcohol intake: never Patient Tobacco Use Status: Never used Tobacco e-Cigarette/Vaping Use: Never Used Second Hand Smoke Exposure: No service: No Current occupational status: employed Cognitive needs: No Hearing needs: No Vision needs: Yes Female Reproductive History Menstrual Age of Menarche: 11 Physical Exam Vital Signs: Last Vital Signs Pulse 84 11/11/24 11:40 BP 136/96 H 11/11/24 11:40 Pulse Ox 98 11/11/24 11:40 Oxygen Delivery Method Room Air 11/11/24 11:40 BMI result Body Mass Index 30.0 Assessment & Plan Assessment & Plan (1) Osteoporosis: Code(s): M81.0 - Age-related osteoporosis without current pathological fracture Category: Medical Plan: This is a 59-year-old female found to have osteoporosis based on a T- score of-2.8 in the left femoral neck. Secondary workup was negative. Patient just started tamoxifen which may contribute to bone loss 1. Osteoporosis The patient is currently on tamoxifen, which increases the risk of bone loss. Alendronate has been prescribed to prevent fractures and manage bone density. The patient is advised to monitor for any exacerbation of reflux symptoms due to alendronate and report if intolerable. We went over the proper administration of alendronate including taking alendronate with a glass of water and remaining upright for 30 minutes after taking I discussed with the patient the use of alendronate to manage osteoporosis, emphasizing its role in preventing fractures due to tamoxifen-induced bone loss. We reviewed the potential for alendronate to exacerbate reflux symptoms and the importance of monitoring these symptoms. I explained the urine test to assess the effectiveness of alendronate, which will be conducted in three to four months. We also discussed the importance of avoiding certain foods that trigger her reflux and the need to remain upright after taking alendronate. The patient had an opportunity to ask questions regarding treatment plan. The patient expressed understanding and agreement with the above treatment plan. Patient was informed and verbally consented to the use of an ambient scribe for clinic note documentation during this visit. Orders: Orders Collagen Crosslinks NTX 4 Months M81.0 - Age-related osteoporosis without current pathological fracture Medications: New alendronate 70 mg PO QWEEK 5 tabs 4RF Coding Level of Care Code Est Pt Level 3 (36576) Diagnoses Osteoporosis M81.0
[2024-11-11 11:40] VITALS: BP 136/96; PULSE 84; O2SAT 98
--- OUTSIDE RECORDS SUMMARY | 2024-11-11 13:49 | XMS_ITS | Clinical Summary ---
Author Organization [facility] Address [address] [facility] [place] [place] [address] Phone Care Team Providers Care Enrollment Clerk Name Role Phone Dany Rubio MD Primary Care Provider [phone] Allergies Active Allergy Reactions Criticality Noted Date [...] g/dl PVNMA 03/14/2020 us [facility] Conversion LAB [id number] LICITED RESULTS Final Result PVNMA from Last 3 Months or Most Recently Relevant to Health Maintenance Care Teams Enrollment Clerk Relationship Specialty Start Date End Date Dany Rubio MD [facility] [place] [address] [facility] [place] PCP - General 05/30/20
== END 2024-11-11 12:02 | disposition home or self-care (01) ==
LOC: HO.ENCR 11:36
PROVIDERS: PCP Internal Medicine; Visit Provider Internal Medicine Endocrinology, Diabetes & Metabolism
DX: M81.0 Age-related osteoporosis without current pathological fracture (principal)
CPT/HCPCS: 99213

== ENCOUNTER → 2024-11-11 11:35 | Outpatient (BNVA) | payer OTHER, SELFPAY ==
[2024-11-05 16:06] VITALS: BP 100/66; BP 104/60; BP 132/58; BMI 31.3
== END ==
PROVIDERS: PCP Internal Medicine; Visit Provider Internal Medicine Endocrinology, Diabetes & Metabolism
DX: M81.0 Age-related osteoporosis without current pathological fracture (principal)
CPT/HCPCS: 99212

== ENCOUNTER 2025-01-25 07:46 | Outpatient (REF) | payer OTHER, SELFPAY ==
[2024-11-05 16:06] VITALS: BP 100/66; BP 104/60; BP 132/58; BMI 31.3
--- OUTSIDE RECORDS SUMMARY | 2025-01-25 07:52 | XMS_ITS | Clinical Summary ---
Author Organization [facility] Address [address] [facility] [place] [place] [place] [address] Phone Care Team Providers Care Health Plan Specialist Name Role Phone Dany Rubio MD Primary Care Provider [phone] Allergies Active Allergy Reactions Criticality Noted Date [...] Visual Foot Exam 06/20/2020 Influenza Vaccine (#1) 2025 Hepatitis B Vaccine Aged Out No [...] g/dl PVNMA 03/14/2020 us [facility] Conversion LAB [id number] LICITED RESULTS Final Result PVNMA from Last 3 Months or Most Recently Relevant to Health Maintenance Care Teams Health Plan Specialist Relationship Specialty Start Date End Date Dany Rubio MD [facility] [place] [address] [place] PCP - General 05/30/20
--- OUTSIDE RECORDS SUMMARY | 2025-01-25 07:52 | XMS_ITS | Clinical Summary ---
Author Organization [address] [facility] Address [address] [place] [address] Phone Care Team Providers Care Airflight Attendants Supervisor Name Role Phone Dany Rubio MD Primary Care Provider [phone] Surgical History Surgery Date Site/Laterality Comments TONSILLECTOMY ADENOIDECTOMY, BILATERAL MYRINGOTOMY AND TUBES PROCEDURE: [place] TONSILLECTOMY & ADENOIDECTOMY <AGE 11 OTHER SURGICAL HISTORY 2003 PROCEDURE: [place] LITHOTRIPSY XTRCORP SHOCK WAVE SECTION 2005 PROCEDURE: HISTORICAL DELIVERY Medical History Medical History Date Comments Type II or unspecified type diabetes mellitus with unspecified complication, not stated as uncontrolled DX:Type II or unspecified t ype diabetes mellitus with unspecified complication, not stated as uncontrolled Nephritis and nephropathy, n ot specified as acute or chronic, with unspecified pathological lesion in kidney DX:Nephritis and nephropathy , not specified as acute or chronic, with unspecified pathological lesion in kidney; COMMENT: nephrolithiasis Social History Tobacco Use Types Packs/Day Years Used Date Smoking Tobacco: Never Smokeless Tobacco: Never Alcohol Use Standard Drinks/Week Comments No 0 (1 standard drink = 0.6 oz pur e alcohol) Comments Unknown Sex and Gender Information Value Date Recorded Sex Assigned at Not on file Legal Sex Female 3:00 AM EST Gender Identity Not on file Sexual Orientation Not on file Obstetrics History Plan of Treatment Upcoming Encounters Date Type Department Care Team ([facility] st Contact Info) Description 02/02/2025 3:00 PM EDT Consult Orthopedic Surgery [facility] [address] [address] Jose Dee DPM [address] [address] Health Maintenance Due Date Last Done Comments Diabetes: Annual GFR (Glomerular Filtration Rate) 1964 Diabetes: Annual Foot Exam 1974 Diabetes: Annual Retina Eye Exam 1974 DTaP,Tdap,and Td Vaccines (1 - Tdap) 1983 Pneumococcal Vaccine: 50+ Years (1 of 2 - PCV) 1983 Cervical Cancer Screening: P ap Smear 1985 Zoster Vaccines (1 of 2) 2014 Breast Cancer Screening 07/10/2020 07/10/19 19, 07/09/2017 RSV Immunization Adult Patients (1 - Risk 60-74 years 1-dose series) 2024 Depression Screening 05/20/2024 Cholesterol Screening (Lipid Panel) 10/30/2024 Colorectal Cancer Screening: Colonoscopy 10/30/2024 Diabetes: Annual Urine Albumin-Creatinine Ratio (uACR) 10/30/2024 Diabetes: Blood Sugar Contro l Test (HGBA1C) 10/30/2024 HIV Screening 10/30/2024 Hepatitis C Screening 10/30/2024 Social Influencers of Health Screening 10/30/2024 COVID-19 Vaccine ( - 2023-2 5 season) 2025 Influenza Vaccine (#1) 2025 HIB Vaccines Aged Out No longer eligi ble based on patient's age to complete this topic HPV Vaccines Aged Out No longer eligi ble based on patient's age to complete this topic Hepatitis A Vaccines Aged Out No long er eligible based on patient's age to complete this topic Hepatitis B Vaccines Aged Out No long er eligible based on patient's age to complete this topic IPV Vaccines Aged Out No longer eligi ble based on patient's age to complete this topic MMR Vaccines Aged Out No longer eligi ble based on patient's age to complete this topic Meningococcal ACWY Vaccine Aged Out N o longer eligible based on patient's age to complete this topic Meningococcal B Vaccine Aged Out No l onger eligible based on patient's age to complete this topic RSV Immunization Patients Under 20 months Aged Out No longer eligible b ased on patient's age to complete this topic Varicella Vaccines Aged Out No longer eligible based on patient's age to complete this topic Procedures Procedure Name Priority Date/Time Associated Diagnosis Comments SCR MAMMO BI INCL CAD Routine 07/10/2018 5:35 PM EST Encounter for screening mammogram for malignant neoplasm of breast from Last 3 Months or Most Recently Relevant to Health Maintenance Results * SCR MAMMO BI INCL CAD (07/10/2018 5:35 PM EST) Anatomical Region Laterality Modality Radiographic Rose ging 07/09/2017 5:30 PM EST Narrative 07/11/2018 12:10 PM EST This is a summary report. The complete report is available in the patient's medical record. If you cannot access the medical record, please contact the sending organization for a detailed fax or copy. Full field digital screening mammography, reviewed with CAD and compared to previous. The breast tissue is heterogeneously dense, limiting sensitivity. No suspicious mass, architectural distortion or suspicious calcifications are identified. IMPRESSION: : Dense breast tissue, limiting the sensitivity of mammography. No mammographic evidence of malignancy. BIRADS 1-Negative; N. 5 year breast cancer risk assessment 0.8 % Lifetime breast cancer risk assessment 5.8 % Breast cancer risk category Low (<15%) Procedure Note Conchita Patel MD - 05/08/2022 This is a summary report. The complete report is available in thepatient's medical record. If you cannot access the medical record, pleasecontact the sending organization for a detailed fax or copy. Full field digital screening mammography, reviewed with CAD and comparedto previous. The breast tissue is heterogeneously dense, limitingsensitivity. No suspicious mass, architectural distortion or suspiciouscalcifications are identified. IMPRESSION: : Dense breast tissue, limiting the sensitivity of mammography. Nomammographic evidence of malignancy. BIRADS 1-Negative; N. 5 year breast cancer risk assessment 0.8 % Lifetime breast cancer risk assessment 5.8 % Breast cancer risk category Low (<15%) Vincent Blood MD IMG XR PROCEDURES Final Resu lt from Last 3 Months or Most Recently Relevant to Health Maintenance Insurance MEDICA[place] - [place] [facility] Care Teams Airflight Attendants Supervisor Relationship Specialty Start Date End Date Dany Rubio MD [address] [place] [address] [address] [facility] [place] [address] PCP - General Internal Medicine 10/30/24
[2025-01-25 09:25] LABS: Anion Gap 11 (12-20); Blood Urea Nitrogen 18 mg/dL (9-16); Calcium 9.6 mg/dL (8.4-10.2); Carbon Dioxide 27 mmol/L (22-29); Chloride 108 mmol/L (96-108); Estimated Glomerular Filt Rate 52; Potassium 4.4 mmol/L (3.3-5.1); Sodium 142 mmol/L (135-145)
== END 2025-01-25 07:47 | disposition home or self-care (01) ==
LOC: HO.LAB 07:46
PROVIDERS: PCP Internal Medicine; Visit Provider Internal Medicine Hypertension Specialist
DX: N20.0 Calculus of kidney (principal)
CPT/HCPCS: 36415; 80048

== ENCOUNTER 2025-01-26 11:29 | Outpatient (REF) | payer OTHER, SELFPAY ==
[2024-11-05 16:06] VITALS: BP 100/66; BP 104/60; BP 132/58; BMI 31.3
--- NOTE | ~2025-01-26 | US_ITS ---
EXAMINATION: US RETROPERITONEAL LIMITED (RENAL ONLY) CLINICAL INFORMATION: Calculus of kidney. COMPARISON: October 29, 2024. TECHNIQUE: Real-time ultrasound of the kidneys using grayscale technique. FINDINGS: RIGHT KIDNEY: 11 x 6 x 5 cm (SAG x AP x TRV). Renal cortical thinning. Normal echotexture. No gross hydronephrosis. Probable extrarenal pelvis. There is a 1.8 cm anechoic lesion, upper pole without septations or nodular components. There are 3 hyperechoic structures at the corticomedullary junction measuring 5 mm in maximum dimension at the lower pole. LEFT KIDNEY: 12 x 6 x 6 cm (SAG x AP x TRV). Renal cortical thinning. Normal echotexture. No gross hydronephrosis. Multiple hyperechoic structures in the corticomedullary junction of the lower pole, the largest measures 1.6 cm. US/US renal BI IMPRESSION: Bilateral nonobstructing nephrolithiasis. 1.8 cm cyst, right kidney.. Electronically signed by: Mariusz Knight MD 01/26/2025 12:21 PM EDT
--- OUTSIDE RECORDS SUMMARY | 2025-01-26 13:59 | XMS_ITS | Clinical Summary ---
Author Organization 175 [facility] Address [address] [place] [address] Phone Care Team Providers Care Flight Operation Coordinator Name Role Phone Dany Rubio MD Primary Care Provider [phone] Surgical History Surgery Date Site/Laterality Comments TONSILLECTOMY ADENOIDECTOMY, BILATERAL MYRINGOTOMY AND TUBES PROCEDURE: [place] TONSILLECTOMY & ADENOIDECTOMY <AGE 11 OTHER SURGICAL HISTORY 2003 PROCEDURE: [place] LITHOTRIPSY XTRCORP SHOCK WAVE SECTION 2005 PROCEDURE: [...] Upcoming Encounters Date Type Department Care Team ([facility] st Contact Info) Description 02/02/2025 3:00 PM EDT Consult Orthopedic Surgery [facility] [address] [phone] Jose Dee DPM [address] [address] Health Maintenance Due Date Last [...] to Health Maintenance Insurance [place] - [place] [facility] PL[facility] Care Teams Flight Operation Coordinator Relationship Specialty Start Date End Date Dany Rubio MD [address] [place] [address] [address] [facility] [place] [address] PCP - General Internal Medicine 10/30/24
--- OUTSIDE RECORDS SUMMARY | 2025-01-26 13:59 | XMS_ITS | Clinical Summary ---
Author Organization [facility] Address [address] [facility] [place] [address] Phone Care Team Providers Care Radio Machinist Name Role Phone Dany Rubio MD Primary Care Provider [phone] Allergies Active Allergy Reactions Criticality Noted Date [...] g/dl PVNMA 03/14/2020 us Rtama Conversion LAB [id number] LICITED RESULTS Final Result PVNMA from Last 3 Months or Most Recently Relevant to Health Maintenance Care Teams Radio Machinist Relationship Specialty Start Date End Date Dany Rubio MD [facility] [place] [address] [place] PCP - General 05/30/20
== END 2025-01-26 11:30 | disposition home or self-care (01) ==
LOC: HO.US 11:29
PROVIDERS: PCP Internal Medicine; Visit Provider Nurse Practitioner Family
DX: N20.0 Calculus of kidney (principal); E11.42 Type 2 diabetes mellitus with diabetic polyneuropathy; E11.65 Type 2 diabetes mellitus with hyperglycemia; M81.0 Age-related osteoporosis without current pathological fracture; Z79.85 Long-term (current) use of injectable non-insulin antidiabetic drugs
CPT/HCPCS: 76775; 82947; 83036; 99212

== ENCOUNTER → 2025-01-26 11:32 | Outpatient (BNV) | payer OTHER, SELFPAY ==
[2024-11-05 16:06] VITALS: BP 100/66; BP 104/60; BP 132/58; BMI 31.3
== END ==
PROVIDERS: PCP Internal Medicine; Visit Provider Radiology Diagnostic Radiology
DX: N20.0 Calculus of kidney (principal); N28.1 Cyst of kidney, acquired
CPT/HCPCS: 76775

== ENCOUNTER 2025-01-26 15:07 | Outpatient (AMB) | payer OTHER, SELFPAY ==
[2024-11-05 16:06] VITALS: BP 100/66; BP 104/60; BP 132/58; BMI 31.3
--- NOTE | 2025-01-26 15:10 | A.OFFVIS_ITS ---
Vital Signs 01/26/25 15:13 Height 5 ft 2 in Weight 160 lb 14.999 oz BMI 29.4 BP 108/62 Blood Pressure Location Lt brachial Position Sitting Pulse 75 Pulse Source Pulse Oximeter Intake Visit Reasons: f/u osteoporosis & T2DM (pump patient) Intake Note: Patient present today to follow up on Type 2 Diabetes Mellitus and Osteoporosis. Last Diabetic Eye exam: 02/11/2024 at [facility] Last Podiatry Visit: Patient does not see a Appraisal Specialist Random Glucose: 244 mg/dl Hgb A1C: 9.1% 01/26/2025 [employer] Required: No Accompanied by: Self / Same As Patient Allergies dulaglutide (From TRULICITY) Allergy (Unknown, Verified 01/26/25 15:15) DIARRHEA AND VOMITTING liraglutide (From VICTOZA) Allergy (Unknown, Verified 01/26/25 15:15) DIARRHEA AND VOMITTING, vomiting and diahrrea Medication List - Last Reconciled 01/26/25 by Suleiman Hargrove MD acetone (urine) test (Ketone Urine Test strips) As directed if glucose running over 250, nausea or vomiting check urine for ketones. If + seek medical attention alendronate 70 mg PO QWEEK aspirin (Adult Aspirin Regimen) 81 mg PO DAILY blood pressure monitor (Blood Pressure Kit) As directed blood sugar diagnostic (FreeStyle Lite Strips) DIRECTED THREE TIMES A DAY blood-glucose transmitter (Dexcom G6 Transmitter device) As directed every 3 months blood-glucose,solder technician,cont (Dexcom G6 Can Closing Machine Tender) As directed calcium carbonate (Calcium 600) 600 mg PO BID cholecalciferol (vitamin D3) 1,250 mcg PO QWEEK Dexcom G6 Sensor (blood-glucose sensor) As directed every 10 days NS docusate sodium 100 mg PO BEDTIME empagliflozin (Jardiance) 10 mg PO DAILY ezetimibe (Zetia) 10 mg PO DAILY furosemide 40 mg PO DAILY 90 days Held on 09/24/24. Instructions: Doctor's Order gabapentin 100 mg PO BEDTIME PRN insulin aspart U-100 Up to 150 units via pump subcut daily; 30 days insulin glargine (Lantus Solostar U-100 Insulin) 30 units (0.3 mL) subcut QPM PRN 30 days MDD 30 units insulin syringe-needle U-100 As directed use 3 times day levothyroxine 125 mcg PO DAILY metoprolol tartrate 25 mg PO BID 90 days multivit, Ca, min-FA-soy isofl 400-60 mcg-mg (One-A-Day Menopause Formula) 1 tab PO DAILY muwnfkobaota-gebfykih-vqiawf (Multivitamin 50 Plus tablet) 1 tab PO DAILY pantoprazole 40 mg PO DAILY PRN pen needle, diabetic (Comfort EZ Pen [place]) As directed pyridoxine (vitamin B6) 100 mg PO DAILY rosuvastatin 40 mg PO BEDTIME semaglutide (Ozempic) 0.25 mg (0.187 mL) subcut QWEEK 28 days sennosides (senna) 8.6 mg PO BEDTIME PRN tamoxifen 20 mg PO DAILY tamsulosin 0.4 mg PO BEDTIME 30 days valsartan 80 mg PO DAILY HPI Comments Details: Patient is a 59 yo female with DM type 2 diagnosed over 20 years ago who present s for continued management of diabetes. She was last seen 10/27/24 for diabetes by Tia Kohler NP . Insulin pump settings had been changed to give additional insulin for both carbohydrates and for correction factor, she has completed chemotherapy for breast cancer. She is also followed for osteoporosis and is on alendronate Dexcom average glucose:183 14 day continuous glucose monitor report reviewed. CGMS is active 60% of the time. TIme in ranges: 7 % very high (above 250) 45 % high ?(181-250) 48 % in range ?(70-180] 0 % low (69-55) 0 % ?very low (below 54) Interpretation : Improving glycemic control, encouraged to enter carbs 20 minutes before meal if possible Basal 65% bolus 35% 38.8 Pattern shows post-breakfast and post-dinner elevations with persistent eleva tion in blood sugar throughout the day Previous treatment: Metformin ER stopped due to GI upset, Took Trulicity and Victoza and had GI intolerance in 2015 Diabetes medications: Novolog via T-slim X 2 with control IQ and Dexcom pump, Jardiance 10 mg QD Ozempic 0.25mg weekly Tandem T slim X 2 pump Basal rate(s) (units/hour) : 12 AM? to 12 PM? 1.6 units / hr 12 PM? to 12 AM? 1.6 units / hr Bolus setting Insulin Carbohydrate Ratio (s) 12 AM to 12 PM 1:4. 12 PM to 12 AM 1:4 Correction Factor / Sensitivity Factor 12 AM? to 12 PM? 1:20 12 PM? to 12 AM? 1:18 Active Insulin Time:? 4.0 Target(s): 12 AM to 12 AM? 110 No hypoglycemia Exercise: limited Neuropathy: positive numbness and tingling, occ pain takes care of her own feet Nephropathy: 04/2023 microalbumin elevated 126 06/06/2024 eGFR 57 10/26/24 Eye Exam: has appt 01/2025 not certain if she has retinopathy (form given for opth to complete) Most recent ldl 97 10/26/24 2) hypothyroidism - She had a total thyroidectomy in 2017 She has had high tsh in the past secondary to non compliance. PENDING SALE TO [facility] Medical History Osteoporosis History of MRSA infection Port-A-Cath in place Hypokalemia Thyroid disease Insulin pump in place Numbness Cough SOB (shortness of breath) On beta suzanne at home CHF (congestive heart failure) History of chemotherapy Neuropathy Myocardial infarction Breast cancer (~09/2023) Preoperative cardiovascular examination Invasive ductal carcinoma of breast Breast cancer, right Breast mass, right Abnormal finding on mammography Abnormal echocardiogram Abnormal stress ECG with treadmill Hearing deficit CKD (chronic kidney disease) stage 3, GFR 30-59 ml/min Low back pain Bacterial conjunctivitis of both eyes Urine incontinence Well woman exam Pyelonephritis Left navicular fracture of foot Vitamin B12 deficiency Thyroid nodule History of Clostridium difficile infection Coronary artery disease Hypercholesterolemia Depression Kidney stone Carpal tunnel syndrome Arthritis 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 Vitamin D deficiency Essential hypertension Type 2 diabetes mellitus with hyperglycemia Surgical History H/O mastectomy (~07/07/24) History of lumpectomy (~05/2024) History of coronary artery stent placement History of biopsy Hx of colonoscopy S/P triple vessel bypass Hx of toe surgery Hx of thyroidectomy History of renal stent Hx of section Hx of myomectomy Hx of tonsillectomy Family History Father DM (diabetes mellitus) Hypertension High cholesterol Spina bifida Kidney stone CAD (coronary artery disease) Mother DM (diabetes mellitus) Hypertension High cholesterol CAD (coronary artery disease) Bipolar 1 disorder Maternal Aunt Lung cancer Maternal Grandfather Lung cancer Other Mental health disorder Social History Household Members: None Household Members Other:: daughter Housing: Apartment Are you a primary career development coordinator/teacher to a significant other at home: No Do you presently have visiting nurse or other home services: No Alcohol intake: never Patient Tobacco Use Status: Never used Tobacco e-Cigarette/Vaping Use: Never Used Second Hand Smoke Exposure: No service: No Current occupational status: employed Cognitive needs: No Hearing needs: No Vision needs: Yes Female Reproductive History Menstrual Age of Menarche: 11 Physical Exam Vital Signs: Last Vital Signs Pulse 75 01/26/25 15:13 BP 108/62 01/26/25 15:13 BMI result Body Mass Index 29.4 Absence of Cushingoid features. Absence of acromegalic features. Neck exam reveals nl size thyroid about 15 gms. No thyroid nodules palpable. No carotid bruits present. Lungs CTA. Heart S1 S2, Reg R/R. No M/R/ G. Skin exam reveals absence of vitiligo or acanthosis nigricans. Abdominal exam reveals Soft NT/ND with NA BS. No organomegaly present. Neck Other: . Extrem Other: Visual exam of foot performed. No ulcerations or open lesions. No onchomycosis ,R foot callouses.Pulses 2 + distally Sensation intact to monofilament exam. Vibratory sensation sensed is decreased with 128 Hz tuning fork Results AMB Hemoglobin A1c AMB Hemoglobin A1c 9.1 % Last Edit by DERICK Christianson on 01/26/25 15:35 Results Reviewed Results Reviewed: Laboratory Last Values Glucose (Clinic) 244 mg/dL (60-115) H 01/26/25 15:21 Assessment & Plan Assessment & Plan (1) Type 2 diabetes mellitus with diabetic polyneuropathy: Code(s): E11.42 - Type 2 diabetes mellitus with diabetic polyneuropathy Category: Medical Plan: This is a 57-year-old female with a history of type 2 diabetes being managed with T-slim insulin pump and Ozempic with fair glycemic control and known microvascular complications and macrovascular complication namely neuropathy, micro albuminuria and CAD Plan is to increase the Ozempic to 0.5 mg Q weekly. Emphasized bolusing before meals Will have patient follow up with associate director financial aid in the next couple of weeks. If glycemic control does not improve could intensify insulin: Carbohydrate. (2) Osteoporosis: Code(s): M81.0 - Age-related osteoporosis without current pathological fracture Category: Medical Plan: This is a 59-year-old female found to have osteoporosis based on a T- score of-2.8 in the left femoral neck. Secondary workup was negative. Patient just started tamoxifen which may contribute to bone loss. Currently on alendronate 70 mg Q weekly Plan is to continue the alendronate. We will check urine NTX Orders: Orders AMB Hemoglobin A1c Today E11.65 - Type 2 diabetes mellitus with hyperglycemia Collagen Crosslinks NTX Today M81.0 - Age-related osteoporosis without current pathological fracture Medications: New semaglutide (Ozempic) 0.5 mg (0.736 mL) subcut QWEEK 3 mL 5RF Refilled pen needle, diabetic (Comfort EZ Pen [place]) As directed 100 ea 5RF Discontinued semaglutide (Ozempic) for 4 weeks Discontinued Reason: Doctor's Order 0.25 mg (0.187 mL) subcut QWEEK 28 days 1.5 mL 3RF Coding Level of Care Code Est Pt Level 4 (75658) Complex EM visit Add On G2211 Diagnoses Type 2 diabetes mellitus with diabetic polyneuropathy E11.42 Osteoporosis M81.0
[2025-01-26 15:13] VITALS: BP 108/62; PULSE 75; BMI 29.4
[2025-01-26 15:26] LABS: Glucose, Whole Blood 244 mg/dL (60-115)
== END 2025-01-26 15:40 | disposition home or self-care (01) ==
LOC: HO.ENCR 15:08
PROVIDERS: PCP Internal Medicine; Visit Provider Internal Medicine Endocrinology, Diabetes & Metabolism
DX: E11.42 Type 2 diabetes mellitus with diabetic polyneuropathy (principal); M81.0 Age-related osteoporosis without current pathological fracture; E11.65 Type 2 diabetes mellitus with hyperglycemia
CPT/HCPCS: 99214

== ENCOUNTER 2025-02-04 16:20 | Outpatient (AMB) | payer OTHER, SELFPAY ==
[2024-11-05 16:06] VITALS: BP 100/66; BP 104/60; BP 132/58; BMI 31.3
--- OUTSIDE RECORDS SUMMARY | 2025-02-02 15:00 | XMS_ITS | Encounter Summary ---
Author Organization [facility] Address [id number] [place] [id number] Care Team Providers Care Department [employer] Name Role Phone Dany Rubio MD Primary Care Provider [phone] Reason for Visit * Reason Comments Consult Dm foot care * Consultation (Routine) - Authorized Specialty Diagnoses / Procedures Referred By Contact Referred To Contact Podiatry / Orthopaedic Surgery Diagnoses Type 2 diabetes mellitus with hyperglycemia (CMS/[facility]ERLY [facility] V24, CMS/FORMERLY [facility] V28) Tia Sosa NP [address] [place] [address] Phone: tel:[phone] Jose Dee DPM [address] [address] Phone: tel: fax: Referral ID Status Reason Start Date Expiration Date Visits Requested Visits Authorized [id number] Authorized Specialty Services Required 10/30/2024 10/30/2025 1 1 Encounter Details Date Type Department Care Team ([facility] st Contact Info) Description 02/02/2025 3:00 PM EDT Consult Orthopedic Surgery - [place] [id number] [address] Jose Dee DPM [address] [phone] Diabetic mononeuropathy simplex (CMS/HCC V24, CMS/FORMERLY [facility] V28) (Primary Dx); Type 2 diabetes mellitus with hyperglycemia (CMS/[facility]ER[facility] V24, CMS/[facility]ER[facility] V28); Dermatophytosis of nail; Verruca plantaris; Tinea pedis of both feet; Pain in toe of right foot; Pain in toe of left foot Social History Tobacco Use Types Packs/Day Years Used Date Smoking Tobacco: Never Smokeless Tobacco: Never Alcohol Use Standard Drinks/Week Comments No 0 (1 standard drink = 0.6 oz pur e alcohol) Comments Unknown Sex and Gender Information Value Date Recorded Sex Assigned at Not on file Legal Sex Female 3:00 AM EST Gender Identity Not on file Sexual Orientation Not on file documented as of this encounter Ordered Prescriptions Prescription Sig Dispense Quantity Refills Last Filled Start Date End Date clotrimazole (LOTRIMIN) 1 % cream Apply topically 2 (two) times a day. 30 g 3 02/02/2025 5 ammonium lactate (AmLactin) 12 % lotion Apply topically if needed for dry skin. 400 g 02/02/2025 6 documented in this encounter Progress Notes * Jose Dee, DPM - 02/02/2025 3:00 PM EDT Last PCP visit:Referring MD: Tia Sosa NP 10/29/2024 IDENTIFIER: Mika is a 59 y.o. year old female who presents for consultation. CC: Foot pain HPI: Mika is a 59 y.o. year old female presents complaining of pain discomfort of both feet notes that she has a long and painful thickened nails that bother her as well as thick skin on the balls of herfeet she states she has areas where she feels that she is deep corns or warts that she stepping on file rocks are painful achy worse when she walks on them states that she occasionally gets irritation in both feet does note she is a type II diabetic endorses occasional numbness and tingling ROS: GENERAL: Pt denies nausea, fever, vomiting, chills, or shortness of breath. Pt in NAD. CARDIOLOGY: pt denies chest pain, palpitations LUNGS: pt denies shortness of breath MUSCULOSKELETAL: See HPI, otherwise no joint pain or swelling, back pain, or muscle pain. SKIN: see HPI, otherwise no lesions, rash or itching NEURO: No persistent headache, weakness or numbness The remainder of the review of systems is noncontributory PAST MEDICAL HISTORY: There is no problem list on file for this patient. Hypokalemia thyroid disease insulin pump myocardial infarction neuropathy history of breast cancer type 2 diabetes SOCIAL HISTORY: Social History Tobacco Use Smoking status: Never Smokeless tobacco: Never Substance Use Topics Alcohol use: No ACTIVE MEDICATIONS: No outpatient medications have been marked as taking for the 02/02/25 encounter (Consult) with Jose Dee DPM. ALLERGIES: Allergies Allergen Reactions Dulaglutide Liraglutide Diarrhea and Nausea And Vomiting PHYSICAL EXAM: Visit Vitals Smoking Status Never PODIATRIC EXAMINATION: GENERAL: Patient appears well nourished, with NAD. VASCULAR: Dorsalis pedis pulses are 2/4 bilaterally and Posterior tibial pulses are 2/4 bilaterally. Capillary filling time within normal limits the digits. No pallor on elevation or rubor on dependency. No varicosities. Denies rest pain or claudication pain. NEUROLOGICAL: Sharp/dull sensation , protective sensation 5/10 with Ipswitch touch test bilaterally, vibratory sensation intact to the tibial tuberosity. ORTHOPEDIC: Good muscle strength 5/5 of all flexors and extensors. Dorsi flexion of ankle ,10 degrees, plantar flexion WNL. No muscle atrophy. DERMATOLOGICAL: Toenails: Left Toenail(s) 1-5: subungual debris, discoloration, hypertrophic, elongation, mycotic appearance, onychomycosis, pain and thickening. Right Toenail(s) 1-5: subungual debris, discoloration, hypertrophic, elongation, mycotic appearance, onychomycosis, pain and thickening. Annular scaling bilateral feet moccasin distribution Skin thinning texture shiny appearance diffuse hyperpigmentation bilaterally pedal hair decreased Hyperkeratotic tissue bilateral heels Abnormal skin formation ball of left foot deep central core pain with lateral compression pinpoint bleeding on debridement BIOMECHANICS: Ankle ROM WNL, STJ ROM wnl, MTJ ROM wnl, 1st MPJ ROM wnl. IMAGING: IMPRESSION: 1. Diabetic mononeuropathy simplex (CMS/HCC V24, CMS/HCC V28) 2. Type 2 diabetes mellitus with hyperglycemia (CMS/HCC V24, CMS/HCC V28) 3. Dermatophytosis of nail 4. Verruca plantaris 5. Tinea pedis of both feet 6. Pain in toe of right foot 7. Pain in toe of left foot PLAN: Pt was seen and examined, history reviewed. Discussed with patient regarding proper glucose control, exercise, and diet. Explained to patient proper shoe gear, and importance of daily foot checks. I reviewed neuropathy and why it occurs in diabetics. I educated the patient on proper blood sugar control and the importance of an HgBA1c of less than 7.0%. I reviewed the signs and symptoms of neuropathy with the patient Clotrimazole prescribed treatment options verrucous plantaris were discussed and reviewed including definitive diagnosis with biopsy Discussed with patient concerns for biopsy as it may lead to scar tissue formation but would have surgical cure and definitive diagnosis patient declined Would recommend destructive procedures patient is willing to proceed Ammonium lactate prescribed was prescribed to be used at home daily at night Follow-up in 1 month [id number]: Destruction of Plantar Verrucae: Verbal informed consent was obtained from the patient. Debrided wart(s) with a scalpel. Aggressive debridement dermal curette and 15 scalpel blade followed by chemical destruction and cauterization with silver nitrate sticks. Debridement of mycotic toenails 6-10: Verbal informed consent was obtained from the patient. Greater than 6 nails were aseptically debrided in thickness and length with nail nippers Jose Dee DPM documented in this encounter Plan of Treatment Upcoming Encounters Date Type Department Care Team (Late st Contact Info) Description 05/04/2025 3:15 PM EST Office Visit Orthopedic Surgery - [place] [address] [address] Jose Dee DPM [address] [phone] documented as of this encounter Visit Diagnoses Diagnosis Diabetic mononeuropathy simplex (CMS/HCC V24, CMS/HCC V28)- Primary Type II or unspecified type diabetes mellitus with neurological manifestations, not stated as uncontrolled Type 2 diabetes mellitus with hyperglycemia (CMS/HCC V24, CMS/HCC V28) Dermatophytosis of nail Verruca plantaris Plantar wart Tinea pedis of both feet Pain in toe of right foot Pain in soft tissues of limb Pain in toe of left foot Pain in soft tissues of limb documented in this encounter Orders Outpatient Referral Count Last Ordered Date Fir st Ordered Date AMB REFERRAL TO PODIATRY 1 02/02/2025 documented in this encounter Care Teams Department [employer] Relationship Specialty Start Date End Date Dany Rubio MD [address] [place] [address] [address] [facility] [place] [address] PCP - General Internal Medicine 10/30/24 documented as of this encounter
--- NOTE | 2025-02-04 16:20 | HO.NEPHOV ---
Vital Signs 02/04/25 16:21 Height 5 ft 2 in Weight 163 lb BMI 29.8 BP 114/60 Blood Pressure Location Lt brachial Position Sitting Pulse 71 Pulse Source Pulse Oximeter Pulse Oximetry (%) 96 Oxygen Delivery Method Room Air Intake Visit Reasons: 3 MO FU-Conf Explosive Specialist Required: No Accompanied by: Self / Same As Patient Allergies dulaglutide (From TRULICITY) Allergy (Unknown, Verified 02/04/25 16:22) DIARRHEA AND VOMITTING liraglutide (From VICTOZA) Allergy (Unknown, Verified 02/04/25 16:22) DIARRHEA AND VOMITTING, vomiting and diahrrea Medication List - Last Reconciled 02/04/25 by Ritesh Soto MD acetone (urine) test (Ketone Urine Test strips) As directed if glucose running over 250, nausea or vomiting check urine for ketones. If + seek medical attention alendronate 70 mg PO QWEEK aspirin (Adult Aspirin Regimen) 81 mg PO DAILY blood pressure monitor (Blood Pressure Kit) As directed blood sugar diagnostic (FreeStyle Lite Strips) DIRECTED THREE TIMES A DAY blood-glucose transmitter (Dexcom G6 Transmitter device) As directed every 3 months blood-glucose,gas pumping station operator,cont (Dexcom G6 Digital Marketing Associate) As directed calcium carbonate (Calcium 600) 600 mg PO BID cholecalciferol (vitamin D3) 1,250 mcg PO QWEEK Dexcom G6 Sensor (blood-glucose sensor) As directed every 10 days NS docusate sodium 100 mg PO BEDTIME empagliflozin (Jardiance) 10 mg PO DAILY ezetimibe (Zetia) 10 mg PO DAILY furosemide 40 mg PO DAILY 90 days Held on 09/24/24. Instructions: Doctor's Order gabapentin 100 mg PO BEDTIME PRN insulin aspart U-100 Up to 150 units via pump subcut daily; 30 days insulin glargine (Lantus Solostar U-100 Insulin) 30 units (0.3 mL) subcut QPM PRN 30 days MDD 30 units insulin syringe-needle U-100 As directed use 3 times day levothyroxine 125 mcg PO DAILY metoprolol tartrate 25 mg PO BID 90 days multivit, Ca, min-FA-soy isofl 400-60 mcg-mg (One-A-Day Menopause Formula) 1 tab PO DAILY yhrhugiqcdwc-zgtupanu-vcgrgb (Multivitamin 50 Plus tablet) 1 tab PO DAILY pantoprazole 40 mg PO DAILY PRN pen needle, diabetic (Comfort EZ Pen Marcy) As directed inject once a day pyridoxine (vitamin B6) 100 mg PO DAILY rosuvastatin 40 mg PO BEDTIME semaglutide (Ozempic) 0.5 mg (0.736 mL) subcut QWEEK sennosides (senna) 8.6 mg PO BEDTIME PRN tamoxifen 20 mg PO DAILY tamsulosin 0.4 mg PO BEDTIME 30 days valsartan 80 mg PO DAILY HPI Comments Details: Middle aged woman with long standing DM and HTN and kidney stones with CKD Here for follow up 09/26/23 Last week , her insulin pump stopped working Blood sugar shot up to 645 She was unwell. Went to ER Creatinine was 1.8 ( new bump) Treated with IVF , Blood sugar was controlled to 260 and discharged home No repeat creatinine levels thus far. Admits to drinking 6- 10 bottles of water - includes anna bigg, pepsi and sprite 06/08/24 Invasive ductal cancer, right breast, status post neoadjuvant chemotherapy Procedure: Right breast lumpectomy with Hologic localizer, sentinel node biopsy - on 05/26/24 c/o swelling of legs 09/24/2024 Underwent right mastectomy in June 2024 today she has no new complaints. 10/26/24 59-year-old female presenting for a follow-up on her kidney function and management of hypertension and hypothyroidism. After holding Lasix/Valsartan , Creatinine normalized - down from 1.56 to 0.9 Her kidney function had previously been impaired, prompting the discontinuation of several medications, including potassium supplements, furosemide, and valsartan. Following these adjustments, her renal function markedly improved. Blood pressure is being monitored to determine when it might be appropriate to reintroduce antihypertensive therapy, specifically valsartan. She historically experienced leg swelling, mostly linked to prolonged standing; however, presently, she denies any significant edema. Thyroid levels were reported to be abnormal, needing reassessment and likely adjustment of levothyroxine by her security associate. The patient underwent surgery a month ago with current post-surgical improvements in her premorbid kidney function, now marked at over 60%. She remains in good health with no surgical complications and maintains normal hemoglobin levels. 02/04/25 Doing well from a renal standpoint. No urinary issues Blood sugar is better controlled [facility] Medical History Osteoporosis History of MRSA infection Port-A-Cath in place Hypokalemia Thyroid disease Insulin pump in place Numbness Cough SOB (shortness of breath) On beta suzanne at home CHF (congestive heart failure) History of chemotherapy Neuropathy Myocardial infarction Breast cancer (~09/2023) Preoperative cardiovascular examination Invasive ductal carcinoma of breast Breast cancer, right Breast mass, right Abnormal finding on mammography Abnormal echocardiogram Abnormal stress ECG with treadmill Hearing deficit CKD (chronic kidney disease) stage 3, GFR 30-59 ml/min Low back pain Bacterial conjunctivitis of both eyes Urine incontinence Well woman exam Pyelonephritis Left navicular fracture of foot Vitamin B12 deficiency Thyroid nodule History of Clostridium difficile infection Coronary artery disease Hypercholesterolemia Depression Kidney stone Carpal tunnel syndrome Arthritis 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 Vitamin D deficiency Essential hypertension Type 2 diabetes mellitus with hyperglycemia Surgical History H/O mastectomy (~07/07/24) History of lumpectomy (~05/2024) History of coronary artery stent placement History of biopsy Hx of colonoscopy S/P triple vessel bypass Hx of toe surgery Hx of thyroidectomy History of renal stent Hx of section Hx of myomectomy Hx of tonsillectomy Family History Father DM (diabetes mellitus) Hypertension High cholesterol Spina bifida Kidney stone CAD (coronary artery disease) Mother DM (diabetes mellitus) Hypertension High cholesterol CAD (coronary artery disease) Bipolar 1 disorder Maternal Aunt Lung cancer Maternal Grandfather Lung cancer Other Mental health disorder Social History Household Members: None Household Members Other:: daughter Housing: Apartment Are you a primary career coordinator to a significant other at home: No Do you presently have visiting nurse or other home services: No Alcohol intake: never Patient Tobacco Use Status: Never used Tobacco e-Cigarette/Vaping Use: Never Used Second Hand Smoke Exposure: No service: No Current occupational status: employed Cognitive needs: No Hearing needs: No Vision needs: Yes Female Reproductive History Menstrual Age of Menarche: 11 Physical Exam Vital Signs: Last Vital Signs Pulse 71 02/04/25 16:21 BP 114/60 02/04/25 16:21 Pulse Ox 96 02/04/25 16:21 Oxygen Delivery Method Room Air 02/04/25 16:21 BMI result Body Mass Index 29.8 Comfortable Neck supple no JVD. Lungs entry equal no rales. Heart S1-S2 heard no gallop or rub. Abdomen soft nontender. Neuro alert awake oriented. No asterixis. Extremities no edema. Results Reviewed Nephrology Results: Hgb, (12.0-16.0) 12.8 g/dl 11/24/24 WBC, (4.8-10.8) 7.5 X10*3/uL 11/24/24 Plt Count, (160-400) 243 X10*3/uL 11/24/24 Sodium, (135-145) 142 mmol/L 01/25/25 Potassium, (3.3-5.1) 4.4 mmol/L 01/25/25 Chloride, (96-108) 108 mmol/L 01/25/25 Carbon Dioxide, (22-29) 27 mmol/L 01/25/25 BUN, (9-16) 18 mg/dL H 01/25/25 Creatinine, (0.5-1.4) 1.08 mg/dL 01/25/25 Calcium, (8.4-10.2) 9.6 mg/dL 01/25/25 Renal US 01/26/25 Assessment & Plan Assessment & Plan (1) CKD (chronic kidney disease) stage 3, GFR 30-59 ml/min: Code(s): N18.30 - Chronic kidney disease, stage 3 unspecified Category: Medical (2) Renal calculus, bilateral: Code(s): N20.0 - Calculus of kidney Category: Medical Plan Frank in a setting of hyperglycemia CKD - Most likely has diabetic kidney disease Fluctuation in creatinine due to hemodynamics Encouraged low salt diet Avoid nephrotoxins including NSAIDS Maintain A1C < 7% Concur with current medical management including Jardiance Nephrolithiasis 24 hr urine studies reviewed Encouraged to main a urine output of > 2L per 24 hrs Avoid pepsi OK to drink lemonade Superimposed FRANK. Serum creatinine is increased from 1.01 up to 1.56. After holding Valsartan and Lasix, renal functin is back to normal BP is elevated No edema As expected, BP is sub optimal Plan Keep valsartan 80 mg Continue to hold furosemide and potassium supplementation. Encouraged to increase p.o. fluid intake. Orders: Orders Electrolytes 4 Months N18.30 - Chronic kidney disease, stage 3 unspecified Creatinine Urine 4 Months N18.30 - Chronic kidney disease, stage 3 unspecified Blood Urea Nitrogen 4 Months N18.30 - Chronic kidney disease, stage 3 unspecified Creatinine 4 Months N18.30 - Chronic kidney disease, stage 3 unspecified Total Protein Urine Random 4 Months N18.30 - Chronic kidney disease, stage 3 unspecified Medications: Discontinued furosemide Discontinued Reason: Doctor's Order 40 mg PO DAILY 90 days 90 tabs 1RF I25.10 - Atherosclerotic heart disease of [place] coronary artery without angina pectoris Coding Level of Care Code Est Pt Level 4 (23599) Diagnoses CKD (chronic kidney disease) stage 3, GFR 30-59 ml/min N18.30 Renal calculus, bilateral N20.0
[2025-02-04 16:21] VITALS: BP 114/60; PULSE 71; O2SAT 96; BMI 29.8
--- OUTSIDE RECORDS SUMMARY | 2025-02-04 17:20 | XMS_ITS | Clinical Summary ---
Author Organization 175 [facility] Address [address] [place] [address] Phone Care Team Providers Care Assigner Name Role Phone Dany Rubio MD Primary Care Provider [phone] Allergies Active Allergy Reactions Criticality Noted Date Comments Dulaglutide 02/02/2025 Liraglutide Diarrhea,Nausea And Vomiting 2017 Medications ammonium lactate (AmLactin) 12 % lotion Apply topically if needed for dry skin. 400 g 5 02/03/20 26 Active clotrimazole (LOTRIMIN) 1 % cream Apply topically 2 (two) times a day. 30 g 3 5 03/04/20 25 Active Encounters Date Type Department Care Team Description 02/02/2025 3:00 PM EDT Consult Orthopedic Surgery [facility] [address] [id number] [place], DPM Diabetic mononeuropathy simplex ([facility] V24, [facility] V28) (Primary Dx); Type 2 diabetes mellitus with hyperglycemia ([facility] V24, [facility] V28); Dermatophytosis of nail; Verruca plantaris; Tinea pedis of both feet; Pain in toe of right foot; Pain in toe of left foot from Last 3 Months Surgical History Surgery Date Site/Laterality Comments TONSILLECTOMY ADENOIDECTOMY, BILATERAL MYRINGOTOMY AND TUBES PROCEDURE: [place] TONSILLECTOMY & ADENOIDECTOMY <AGE 12 OTHER SURGICAL HISTORY 2003 PROCEDURE: [place] LITHOTRIPSY XTRCORP SHOCK WAVE SECTION 2005 PROCEDURE: [...] Upcoming Encounters Date Type Department Care Team ([facility] Contact Info) Description 05/04/2025 3:15 PM EST Office Visit Orthopedic Surgery - [place] [address] [phone] Jose Dee, DPM [address] [phone] Health Maintenance Due Date Last Done Comments Diabetes: Annual GFR (Glomerular Filtration Rate) 1964 Diabetes: Annual Foot Exam 1974 Diabetes: Annual Retina Eye Exam 1974 Pneumococcal Vaccine: 50+ Years (1 of 2 - PCV) 1983 Cervical Cancer Screening: Pap Smear 1985 Breast Cancer Screening 07/10/2020 07/10/2018, 07/09 RSV Immunization Adult Patients (1 - Risk 60-74 years 1-dose series) 2024 Depression Screening 05/20/2024 Cholesterol Screening (Lipid Panel) 10/30/2024 Colorectal Cancer Screening: Colonoscopy 10/30/2024 Diabetes: Annual Urine Albumin-Creatinine Ratio (uACR) 10/30/2024 Diabetes: Blood Sugar Control Test (HGBA1C) 10/30/2024 HIV Screening 10/30/2024 Hepatitis C Screening 10/30/2024 Social Influencers of Health Screening 10/30/2024 COVID-19 Vaccine ( season) 2025 07/19/2021, 09/14/2020, 08/23/2020 Influenza Vaccine (#1) 2025 1, 06/13/2020, 07/21/2019, Additional history exists Hypertension/CHF/CAD Annual BMP Blood Test 02/02/2025 DTaP,Tdap,and Td Vaccines (3 - Td or Tdap) 12/06/2027 12/05/2017, 05/16/2016 Zoster Vaccines Completed 03/18/2023, 12/14/2022 HIB Vaccines Aged Out No longer eligi [...] 20 months Aged Out No longer eligible based on [...] to Health Maintenance Insurance [place] - [place] [facility] PL[facility] Care Teams Assigner Relationship Specialty Start Date End Date Dany Rubio MD [address] [place] [address] [address] [facility] [place] [address] PCP - General Internal Medicine 10/30/24
--- OUTSIDE RECORDS SUMMARY | 2025-02-04 17:20 | XMS_ITS | Clinical Summary ---
Author Organization [facility] Address [address] [facility] [place] [address] Phone Care Team Providers Care Footwear Production Machine Operator Name Role Phone Dany Rubio MD Primary Care Provider [phone] Allergies Active Allergy Reactions Criticality Noted Date [...] g/dl PVNMA 03/14/2020 us [facility] Conversion LAB [id number] LICITED RESULTS Final Result PVNMA from Last 3 Months or Most Recently Relevant to Health Maintenance Care Teams Footwear Production Machine Operator Relationship Specialty Start Date End Date Dany Rubio MD [facility] [place] [address] [place] PCP - General 05/30/20
== END 2025-02-04 16:32 | disposition home or self-care (01) ==
LOC: HO.HKA 16:20
PROVIDERS: PCP Internal Medicine; Visit Provider Internal Medicine Hypertension Specialist
DX: N18.30 Chronic kidney disease, stage 3 unspecified (principal); N20.0 Calculus of kidney
CPT/HCPCS: 99214

== ENCOUNTER → 2025-02-04 16:20 | Outpatient (BNVA) | payer OTHER, SELFPAY ==
[2024-11-05 16:06] VITALS: BP 100/66; BP 104/60; BP 132/58; BMI 31.3
== END ==
PROVIDERS: PCP Internal Medicine; Visit Provider Internal Medicine Hypertension Specialist
DX: N18.30 Chronic kidney disease, stage 3 unspecified (principal); I10 Essential (primary) hypertension; E03.9 Hypothyroidism, unspecified; E11.65 Type 2 diabetes mellitus with hyperglycemia; E11.42 Type 2 diabetes mellitus with diabetic polyneuropathy; N20.0 Calculus of kidney
CPT/HCPCS: 99212

== ENCOUNTER 2025-02-10 12:29 | Outpatient (AMB) | payer OTHER, SELFPAY ==
[2024-11-05 16:06] VITALS: BP 100/66; BP 104/60; BP 132/58; BMI 31.3
[2025-02-10 12:34] VITALS: BMI 29.8
--- NOTE | 2025-02-10 12:34 | A.OFFVIS_ITS ---
VS Expanded 02/10/25 12:34 Height 5 ft 2 in Weight 162 lb 14.746 oz BMI 29.8 Intake Visit Reasons: T2DM Allergies dulaglutide (From TRULICITY) Allergy (Unknown, Verified 02/04/25 16:22) DIARRHEA AND VOMITTING liraglutide (From VICTOZA) Allergy (Unknown, Verified 02/04/25 16:22) DIARRHEA AND VOMITTING, vomiting and diahrrea Nutrition Presentation Details: Pt presents for MNT for T2DM Pt reports noticing increase GI symp (rosa maria/stomach pain) Pt admits to increase fast food intake BS Monitoring Most Recent Diabetes Results: Creatinine, (0.5-1.4) 1.08 mg/dL 01/25/25 BUN, (9-16) 18 mg/dL H 01/25/25 Sodium, (135-145) 142 mmol/L 01/25/25 Potassium, (3.3-5.1) 4.4 mmol/L 01/25/25 Chloride, (96-108) 108 mmol/L 01/25/25 Carbon Dioxide, (22-29) 27 mmol/L 01/25/25 Calcium, (8.4-10.2) 9.6 mg/dL 01/25/25 AST, (5-31) 22 U/L 11/24/24 ALT, (0-31) 18 U/L 11/24/24 Total Protein, (6.5-8.0) 6.8 g/dL 11/24/24 Albumin, (3.5-5.0) 4.2 g/dL 11/24/24 [facility] Medical History Osteoporosis History of MRSA infection Port-A-Cath in place Hypokalemia Thyroid disease Insulin pump in place Numbness Cough SOB (shortness of breath) On beta suzanne at home CHF (congestive heart failure) History of chemotherapy Neuropathy Myocardial infarction Breast cancer (~09/2023) Preoperative cardiovascular examination Invasive ductal carcinoma of breast Breast cancer, right Breast mass, right Abnormal finding on mammography Abnormal echocardiogram Abnormal stress ECG with treadmill Hearing deficit CKD (chronic kidney disease) stage 3, GFR 30-59 ml/min Low back pain Bacterial conjunctivitis of both eyes Urine incontinence Well woman exam Pyelonephritis Left navicular fracture of foot Vitamin B12 deficiency Thyroid nodule History of Clostridium difficile infection Coronary artery disease Hypercholesterolemia Depression Kidney stone Carpal tunnel syndrome Arthritis 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 Vitamin D deficiency Essential hypertension Type 2 diabetes mellitus with hyperglycemia Surgical History H/O mastectomy (~07/07/24) History of lumpectomy (~05/2024) History of coronary artery stent placement History of biopsy Hx of colonoscopy S/P triple vessel bypass Hx of toe surgery Hx of thyroidectomy History of renal stent Hx of section Hx of myomectomy Hx of tonsillectomy Family History Father DM (diabetes mellitus) Hypertension High cholesterol Spina bifida Kidney stone CAD (coronary artery disease) Mother DM (diabetes mellitus) Hypertension High cholesterol CAD (coronary artery disease) Bipolar 1 disorder Maternal Aunt Lung cancer Maternal Grandfather Lung cancer Other Mental health disorder Social History Household Members: None Household Members Other:: daughter Housing: Apartment Are you a primary career based intervention coordinator to a significant other at home: No Do you presently have visiting nurse or other home services: No Alcohol intake: never Patient Tobacco Use Status: Never used Tobacco e-Cigarette/Vaping Use: Never Used Second Hand Smoke Exposure: No service: No Current occupational status: employed Cognitive needs: No Hearing needs: No Vision needs: Yes Female Reproductive History Menstrual Age of Menarche: 11 Assessment & Plan Assessment & Plan (1) Type 2 diabetes mellitus with diabetic polyneuropathy: Code(s): E11.42 - Type 2 diabetes mellitus with diabetic polyneuropathy Category: Medical Plan: Wt: 77 Kg ( 08/11 ), 09/11, 74.5 (11/11), 74kg (02/11) Est kcal needs as per MSJ: 1500- (40% carb, 30% protein/fat) Est fluid needs as per 25-30 ml/d: 2200 Est prot per day as per 1 g/kg bw: 75 Recommend fiber intake : 8-10 g per day and gradually increase to 25-28 g per day for women and 35-38 g for men or as tolerated Recommend sodium intake per day : less than 2000 mg Educated patient on: ( R = reviewed V = verbalizes understanding N/R = needs review N/A = not applicable * Food sources of carbohydrate, adequate serving sizes and its role in various health conditions: R V * Differences between complex carbohydrates a simple carbohydrates, role of fibe r in diet: R V * Lean protein sources of foods: R V * Differences between types of fats and role in diet (mono on saturated fat fatty acids, saturated fatty acids, trans fats): R * Food sources of sodium in salt and healthy modifications for heart health in kidney health: R V * Vitamins and minerals: R * Healthy plate method concept: R V * Physical activity: Benefits a precaution: R * Hypoglycemia protocol (rule of 15): R * Dietary prevention of Hyperglycemia: R Patient Instructions: Choose low fat foods (no fried foods: fries/fritters) Choose low acid foods and eat slow Have a protein shake as a a meal replacement Coding Level of Care Code Nutr Indiv Subseq (97384) Diagnoses Type 2 diabetes mellitus with diabetic polyneuropathy E11.42 Time Spent (min) 20
--- OUTSIDE RECORDS SUMMARY | 2025-02-10 15:02 | XMS_ITS | Clinical Summary ---
Author Organization 175 [facility] Address [address] [place] [address] Phone Care Team Providers Care Supervisor Wool Shearing Name Role Phone Dany Rubio MD Primary Care Provider [phone] Allergies Active Allergy Reactions Criticality Noted Date [...] 02/02/2025 3:00 PM EDT Consult Orthopedic Surgery [facility] [address] [phone] [place], DPM Diabetic mononeuropathy simplex ([facility] V24, [facility] V28) (Primary Dx); Type 2 diabetes mellitus with hyperglycemia ([facility] V24, [facility] V28); Dermatophytosis of nail; Verruca plantaris; Tinea pedis of both feet; Pain in toe of right foot; Pain in toe of left foot from Last 3 Months Surgical History Surgery Date Site/Laterality Comments TONSILLECTOMY ADENOIDECTOMY, BILATERAL MYRINGOTOMY AND TUBES PROCEDURE: [place] TONSILLECTOMY & ADENOIDECTOMY <AGE 11 OTHER SURGICAL HISTORY 2003 PROCEDURE: [place] LITHOTRIPSY XTRCORP SHOCK WAVE SECTION 2005 PROCEDURE: [...] Upcoming Encounters Date Type Department Care Team ([facility] Contact Info) Description 05/04/2025 3:15 PM EST Office Visit Orthopedic Surgery - [place] [address] [phone] [place] Dee, DPM [address] [phone] Health Maintenance Due Date Last [...] to Health Maintenance Insurance [place] - [place] [facility] PLAN Care Teams Supervisor Wool Shearing Relationship Specialty Start Date End Date Dany Rubio MD [address] [place] [address] [address] [place] [facility] [place] [address] PCP - General Internal Medicine 10/30/24
--- OUTSIDE RECORDS SUMMARY | 2025-02-10 15:02 | XMS_ITS | Clinical Summary ---
Author Organization [facility] Address [address] [place] [address] Phone Care Team Providers Care Gmat Instructor Name Role Phone Dany Rubio MD Primary Care Provider [phone] Allergies Active Allergy Reactions Criticality Noted Date [...] g/dl PVNMA 03/14/2020 us Rtama Conversion LAB [id number] LICITED RESULTS Final Result PVNMA from Last 3 Months or Most Recently Relevant to Health Maintenance Care Teams Gmat Instructor Relationship Specialty Start Date End Date Dany Rubio MD [facility] [place] [address] [place] PCP - General 05/30/20
== END 2025-02-10 13:12 | disposition home or self-care (01) ==
LOC: HO.ENCR 12:30
PROVIDERS: PCP Internal Medicine; Visit Provider Dietitian, Registered
DX: E11.42 Type 2 diabetes mellitus with diabetic polyneuropathy (principal)

== ENCOUNTER → 2025-02-10 12:29 | Outpatient (BNVA) | payer OTHER, SELFPAY ==
[2024-11-05 16:06] VITALS: BP 100/66; BP 104/60; BP 132/58; BMI 31.3
== END ==
PROVIDERS: PCP Internal Medicine; Visit Provider Dietitian, Registered
DX: E11.65 Type 2 diabetes mellitus with hyperglycemia (principal); E11.42 Type 2 diabetes mellitus with diabetic polyneuropathy; E11.22 Type 2 diabetes mellitus with diabetic chronic kidney disease; N18.30 Chronic kidney disease, stage 3 unspecified; Z71.3 Dietary counseling and surveillance
CPT/HCPCS: 97803

== ENCOUNTER 2025-02-16 10:46 | Outpatient (AMB) | payer OTHER, SELFPAY ==
[2024-11-05 16:06] VITALS: BP 100/66; BP 104/60; BP 132/58; BMI 31.3
--- NOTE | 2025-02-16 10:56 | MHC.OFFVIS ---
Intake Visit Reasons: 6m/US Intake Note: patient presents today for: 6mo/US urology medications: tamsulosin, vitb6 blood thinners: eliquis US done: 01/21/25 Banana Ripening Room Supervisor Required: No Accompanied by: Self / Same As Patient Allergies dulaglutide (From TRULICITY) Allergy (Unknown, Verified 02/16/25 14:56) DIARRHEA AND VOMITTING liraglutide (From VICTOZA) Allergy (Unknown, Verified 02/16/25 14:56) DIARRHEA AND VOMITTING, vomiting and diahrrea Medication List - Last Reconciled 02/16/25 by GAURAV Sumner acetone (urine) test (Ketone Urine Test strips) As directed if glucose running over 250, nausea or vomiting check urine for ketones. If + seek medical attention alendronate 70 mg PO QWEEK aspirin (Adult Aspirin Regimen) 81 mg PO DAILY blood pressure monitor (Blood Pressure Kit) As directed blood sugar diagnostic (FreeStyle Lite Strips) DIRECTED THREE TIMES A DAY blood-glucose transmitter (Dexcom G6 Transmitter device) As directed every 3 months blood-glucose,reclamation kettle tender,cont (Dexcom G6 [employer]) As directed calcium carbonate (Calcium 600) 600 mg PO BID cholecalciferol (vitamin D3) 1,250 mcg PO QWEEK Dexcom G6 Sensor (blood-glucose sensor) As directed every 10 days NS docusate sodium 100 mg PO BEDTIME empagliflozin (Jardiance) 10 mg PO DAILY ezetimibe (Zetia) 10 mg PO DAILY gabapentin 100 mg PO BEDTIME PRN insulin aspart U-100 Up to 150 units via pump subcut daily; 30 days insulin glargine (Lantus Solostar U-100 Insulin) 30 units (0.3 mL) subcut QPM PRN 30 days MDD 30 units insulin syringe-needle U-100 As directed use 3 times day levothyroxine 125 mcg PO DAILY metoprolol tartrate 25 mg PO BID 90 days multivit, Ca, min-FA-soy isofl 400-60 mcg-mg (One-A-Day Menopause Formula) 1 tab PO DAILY zmzqjuuoeatt-heuwohiz-lltawy (Multivitamin 50 Plus tablet) 1 tab PO DAILY pantoprazole 40 mg PO DAILY PRN pen needle, diabetic (Comfort EZ Pen [employer]) As directed inject once a day pyridoxine (vitamin B6) 100 mg PO DAILY rosuvastatin 40 mg PO BEDTIME semaglutide (Ozempic) 0.5 mg (0.736 mL) subcut QWEEK sennosides (senna) 8.6 mg PO BEDTIME PRN tamoxifen 20 mg PO DAILY tamsulosin 0.4 mg PO BEDTIME 30 days valsartan 80 mg PO DAILY HPI Comments Details: Mayela is a pleasant 59 year old female patient of Dr. Rubio. She has a past medical history of arthritis, carpal tunnel syndrome, coronary artery disease, depression, hypertension, hypercholesteremia, type 2 diabetes with diabetic polyneuropathy, vitamin B12 deficiency, and vitamin-D deficiency. She presents to the office today for follow-up of her nephrolithiasis. In discussion with the patient today she does report intermittent episodes of bilateral flank pain. Recent renal imaging results reviewed with the patient today 02/11 bilateral nonobstructing nephrolithiasis. Right kidney with multiple nonobstructing calculi measuring up to 5 mm. Left kidney with multiple hyperechoic structures in the corticomedullary junction of the lower pole, the largest measures 1.6 cm. 1.8 cm cysts, right kidney. She discusses her recent diagnosis of breast cancer and has undergone a right-sided mastectomy. She reports to be recovering well and continues to follow-up with her oncologist. She does report intermittent episodes of dysuria however also discusses having had a recent vaginal Bartholin cyst and feels she also experienced vaginal itching. In office urinalysis results reviewed with the patient today 1+ leukocytes negative nitrates. When asked she denies urinary urgency, urinary frequency, incontinence, nocturia, hematuria, foul smelling urine, changes to urinary stream, flank pain, fever, and or chills. She continues to report compliance with vitamin B6, adding 1 oz of lemon juice to water daily, and increase in hydration. She otherwise offers no other issues or concerns at this time. ON LICENSE OF [facility] Medical History Osteoporosis History of MRSA infection Port-A-Cath in place Hypokalemia Thyroid disease Insulin pump in place Numbness Cough SOB (shortness of breath) On beta suzanne at home CHF (congestive heart failure) History of chemotherapy Neuropathy Myocardial infarction Breast cancer (~09/2023) Preoperative cardiovascular examination Invasive ductal carcinoma of breast Breast cancer, right Breast mass, right Abnormal finding on mammography Abnormal echocardiogram Abnormal stress ECG with treadmill Hearing deficit CKD (chronic kidney disease) stage 3, GFR 30-59 ml/min Low back pain Bacterial conjunctivitis of both eyes Urine incontinence Well woman exam Pyelonephritis Left navicular fracture of foot Vitamin B12 deficiency Thyroid nodule History of Clostridium difficile infection Coronary artery disease Hypercholesterolemia Depression Kidney stone Carpal tunnel syndrome Arthritis 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 Vitamin D deficiency Essential hypertension Type 2 diabetes mellitus with hyperglycemia Surgical History H/O mastectomy (~07/07/24) History of lumpectomy (~05/2024) History of coronary artery stent placement History of biopsy Hx of colonoscopy S/P triple vessel bypass Hx of toe surgery Hx of thyroidectomy History of renal stent Hx of section Hx of myomectomy Hx of tonsillectomy Family History Father DM (diabetes mellitus) Hypertension High cholesterol Spina bifida Kidney stone CAD (coronary artery disease) Mother DM (diabetes mellitus) Hypertension High cholesterol CAD (coronary artery disease) Bipolar 1 disorder Maternal Aunt Lung cancer Maternal Grandfather Lung cancer Other Mental health disorder Social History Household Members: None Household Members Other:: daughter Housing: Apartment Are you a primary child care coordinator to a significant other at home: No Do you presently have visiting nurse or other home services: No Alcohol intake: never Patient Tobacco Use Status: Never used Tobacco e-Cigarette/Vaping Use: Never Used Second Hand Smoke Exposure: No service: No Current occupational status: employed Cognitive needs: No Hearing needs: No Vision needs: Yes Female Reproductive History Menstrual Age of Menarche: 11 Review of Systems Const Reports as per HPI Eyes Reports no additional complaints ENT Reports no additional complaints Card Reports as per HPI Resp Reports no additional complaints GI Reports no additional complaints Reports as per HPI Musc Reports no additional complaints Skin/Breast Reports as per HPI Neuro Reports no additional complaints Psych Reports no additional complaints Endo Details: Patient reports taking medications for Daibetes and reports sugars to be controlled Reports as per HPI Yovanny/Lymph Reports as per HPI Aller/Immun Reports no additional complaints Physical Exam Const General: cooperative, healthy appearing, comfortable, no acute distress, well developed, alert and awake Orientation/consciousness: patient oriented x3 Limitations: no limitations HEENT Head: Yes normal to inspection, Yes normocephalic and Yes atraumatic Ears: hearing grossly normal bilaterally Eyes General: appearance normal, both eyes and all related structures Neck Neck: Yes normal visual inspection and Yes trachea midline Chest Chest palpation & inspection: normal inspection of the chest Resp Effort & Inspection: normal respiratory effort and able to speak in complete sentences Cardio Rate: regular rate GI Inspection: Yes normal to inspection General: Yes no CVA tenderness Back/Spine/Pelvis Back: no CVA tenderness Skin General skin exam: no rashes or lesions noted Neuro General: patient oriented x3 Extrem General: Yes normal to inspection Psych Appearance: grossly normal and well kempt Mental Status: mental status grossly normal Speech and movement: Normal speech and movement present and Clear speech present Affect: normal affect Attitude: cooperative Thought process: Normal thought process present Thought content: Normal thought content present Insight: Fair insight present (Psych) Judgement: Fair judgement present (Psych) Results AMB Urinalysis, Automated UA Leukoctes 15 Kelin/uL Last Edit by NHUNG Go on 02/16/25 11:11 UA Nitrite Last Edit by NHUNG Go on 02/16/25 11:11 UA Urobilinogen 0.2 mg/dL Last Edit by NHUNG Go on 02/16/25 11:11 UA Protein 0 mg/dL Last Edit by NHUNG Go on 02/16/25 11:11 UA pH 6.0 Last Edit by NHUGN Go on 02/16/25 11:11 UA Blood 0 Brian/uL Last Edit by NHUNG Go on 02/16/25 11:11 UA Specific [place] 1.020 Last Edit by NHUNG Go on 02/16/25 11:11 UA Ketone Last Edit by NHUNG Go on 02/16/25 11:11 UA Bilirubin 0 mg/dL Last Edit by NHUNG Go on 02/16/25 11:11 UA Glucose 0 mg/dL Last Edit by NHUNG Go on 02/16/25 11:11 Results Reviewed Results Reviewed: Laboratory Last Values Urine pH (Auto) 6.0 02/16/25 11:11 Specific [place] (Auto) 1.020 02/16/25 11:11 Urine Protein (Auto) 0 mg/dL 02/16/25 11:11 Glucose (UA)(Auto) 0 mg/dL 02/16/25 11:11 Urine Blood (Auto) 0 Brian/uL 02/16/25 11:11 Urine Bilirubin (Auto) 0 mg/dL 02/16/25 11:11 Urine Urobilinogen (Auto) 0.2 mg/dL 02/16/25 11:11 Leukocyte Esterase (Auto) 15 Kelin/uL 02/16/25 11:11 Date of Service: 01/26/25 Procedure(s): US renal BI FINDINGS: RIGHT KIDNEY: 11 x 6 x 5 cm (SAG x AP x TRV). Renal cortical thinning. Normal echotexture. No gross hydronephrosis. Probable extrarenal pelvis. There is a 1.8 cm anechoic lesion, upper pole without septations or nodular components. There are 3 hyperechoic structures at the corticomedullary junction measuring 5 mm in maximum dimension at the lower pole. LEFT KIDNEY: 12 x 6 x 6 cm (SAG x AP x TRV). Renal cortical thinning. Normal echotexture. No gross hydronephrosis. Multiple hyperechoic structures in the corticomedullary junction of the lower pole, the largest measures 1.6 cm. IMPRESSION: Bilateral nonobstructing nephrolithiasis. 1.8 cm cyst, right kidney. Assessment & Plan Assessment & Plan (1) Dysuria: Code(s): R30.0 - Dysuria Category: Medical (2) Kidney stone: Code(s): N20.0 - Calculus of kidney Category: Medical Plan In office urinalysis results with the patient today; as noted above; will send for urine culture. Recent renal imaging results reviewed with the patient today; as noted above. Will obtain CT KUB for further assessment evaluation. We did discussed at length potential causes as well as further treatment options of nephrolithiasis to include surveillance monitoring verses ESWL verses ureteroscopy; risks and benefits of these interventions were discussed. We discussed the importance of adequate hydration relation to nephrolithiasis as well as overall health and well-being. All questions were answered. Continue vitamin B6 as discussed and prescribed. Continue adding 1 oz of lemon juice to water daily. Follow-up in 1-3 months with imaging to be completed prior; or sooner with any issues, concerns, and or questions. Orders: Orders AMB Urinalysis Automated Today Z13.9 - Encounter for screening, unspecified Urine Culture Today R30.0 - Dysuria CT kidney stone Today N20.0 - Calculus of kidney, R10.9 - Unspecified abdominal pain Medications: Discontinued tamsulosin Discontinued Reason: Doctor's Order 0.4 mg PO BEDTIME 30 days 30 caps 0RF N40.1 - Benign prostatic hyperplasia with lower urinary tract symptoms, R35.1 - Nocturia Patient Instructions: The patient had an opportunity to ask questions regarding the treatment plan. All questions were answered. Physical exam, labs, and imaging were discussed and reviewed in detail. As well as risks, benefits, and discussion of treatment choices. No major barriers to understanding were identified. The patient expressed understanding and agreement with the above treatment plan. The patient was made aware they should contact our office by phone for worsening of their current condition, the appearance of new symptoms, or with any questions or concerns. Compliance is encouraged with any medications and follow up testing that is ordered. It is a privilege to be allowed the opportunity to participate in? your urological care.? Again, if you have any questions or concerns If you have any questions or concerns please do not hesitate to contact me. The office is [phone]. This note is constructed using voice recognition software. While every effort has been made to ensure accuracy hypertrichologist errors may have been included. Yours sincerely, GAURAV Sumner Coding Level of Care Code Est Pt Level 3 (70599) Complex EM visit Add On G2211 Diagnoses Dysuria R30.0 Kidney stone N20.0
--- OUTSIDE RECORDS SUMMARY | 2025-02-16 12:03 | XMS_ITS | Clinical Summary ---
Author Organization [facility] Address [address] [facility] [place] [address] Phone Care Team Providers Care Supervisor Farm Equipment Maintenance Name Role Phone Dany Rubio MD Primary Care Provider [phone] Allergies Active Allergy Reactions Criticality Noted Date [...] g/dl PVNMA 03/14/2020 us Rtama Conversion LAB [id number] LICITED RESULTS Final Result PVNMA from Last 3 Months or Most Recently Relevant to Health Maintenance Care Teams Supervisor Farm Equipment Maintenance Relationship Specialty Start Date End Date Dany Rubio MD [facility] [place] [address] [place] PCP - General 05/30/20
--- OUTSIDE RECORDS SUMMARY | 2025-02-16 12:05 | XMS_ITS | Clinical Summary ---
Author Organization 175 [facility] Address [address] [place] [address] Phone Care Team Providers Care Warehouse Person Name Role Phone Dany Rubio MD Primary Care Provider [phone] Allergies Active Allergy Reactions Criticality Noted Date [...] 02/02/2025 3:00 PM EDT Consult Orthopedic Surgery [facility] [address] [phone] Jose Dee, DPM Diabetic mononeuropathy simplex ([facility] V24, [facility] V28) (Primary Dx); Type 2 diabetes mellitus with hyperglycemia ([facility] V24, [facility] V28); Dermatophytosis of nail; Verruca plantaris; Tinea pedis of both feet; Pain in toe of right foot; Pain in toe of left foot from Last 3 Months Surgical History Surgery Date Site/Laterality Comments TONSILLECTOMY ADENOIDECTOMY, BILATERAL MYRINGOTOMY AND TUBES PROCEDURE: [place] TONSILLECTOMY & ADENOIDECTOMY <AGE 11 OTHER SURGICAL HISTORY 2003 PROCEDURE: [place] LITHOTRIPSY XTRCORP SHOCK WAVE SECTION 2005 PROCEDURE: [...] Upcoming Encounters Date Type Department Care Team ([facility] Contact Info) Description 05/04/2025 3:15 PM EST Office Visit Orthopedic Surgery - [place] [address] [phone] Jose Dee, DPM [address] [address] Health Maintenance Due Date Last Done Comments Colorectal Cancer Screening: Colonoscopy 1964 Diabetes: Annual GFR (Glomerular Filtration Rate) 1964 Diabetes: Annual Foot Exam 1974 Diabetes: Annual Retina Eye Exam 1974 Pneumococcal Vaccine: 50+ Years (1 of 2 - PCV) 1983 Cervical Cancer Screening: Pap Smear 1985 Breast Cancer Screening 07/10/2020 07/10/2018, 07/09 RSV Immunization Adult Patients (1 - Risk 60-74 years 1-dose series) 2024 Depression Screening 05/20/2024 Cholesterol Screening (Lipid Panel) 10/30/2024 Diabetes: Annual Urine Albumin-Creatinine Ratio (uACR) [...] to Health Maintenance Insurance [place] - [place] [facility] Care Teams Warehouse Person Relationship Specialty Start Date End Date Dany Rubio MD [address] [place] [address] [address] [facility] [place] [address] PCP - General Internal Medicine 10/30/24
== END 2025-02-16 11:29 | disposition home or self-care (01) ==
LOC: HO.HUSH 10:46
PROVIDERS: PCP Internal Medicine; Visit Provider Nurse Practitioner Family
DX: R30.0 Dysuria (principal); N20.0 Calculus of kidney; Z13.9 Encounter for screening, unspecified
CPT/HCPCS: 99213

== ENCOUNTER 2025-02-16 10:46 | Outpatient (REF) | payer OTHER, SELFPAY ==
[2024-11-05 16:06] VITALS: BP 100/66; BP 104/60; BP 132/58; BMI 31.3
== END 2025-02-16 10:47 | disposition home or self-care (01) ==
LOC: HO.LAB 10:46
PROVIDERS: PCP Internal Medicine; Visit Provider Nurse Practitioner Family
DX: N20.0 Calculus of kidney (principal); R10.9 Unspecified abdominal pain; R30.0 Dysuria; R35.1 Nocturia; Z13.89 Encounter for screening for other disorder
CPT/HCPCS: 81003; 87086; 99212

== ENCOUNTER 2025-03-16 14:19 | Outpatient (REF) | payer OTHER, SELFPAY ==
[2024-11-05 16:06] VITALS: BP 100/66; BP 104/60; BP 132/58; BMI 31.3
--- OUTSIDE RECORDS SUMMARY | 2025-03-16 18:38 | XMS_ITS | Clinical Summary ---
Author Organization 175 [facility] Address [address] [place] [address] Phone Care Team Providers Care Reset Merchandiser Name Role Phone Dany Rubio MD Primary Care Provider [phone] Allergies Active Allergy Reactions Criticality Noted Date Comments Dulaglutide 02/02/2025 Liraglutide Diarrhea,Nausea And Vomiting 2017 Medications ammonium lactate (AmLactin) 12 % lotion Apply topically if needed for dry skin. 400 g 5 02/03/20 26 Active clotrimazole (LOTRIMIN) 1 % cream Apply topically 2 (two) times a day. 30 g 3 5 03/04/20 25 Encounters Date Type Department Care Team Description 02/02/2025 3:00 PM EDT Consult Orthopedic Surgery [facility] [address] [phone] Jose Dee, DPM Diabetic mononeuropathy simplex ([facility] V24, [facility] V28) (Primary Dx); Type 2 diabetes mellitus with hyperglycemia ([facility] V24, [facility] V28); Dermatophytosis of nail; Verruca plantaris; Tinea pedis of both feet; Pain in toe of right foot; Pain in toe of left foot from Last 3 Months Surgical History Surgery Date Site/Laterality Comments TONSILLECTOMY ADENOIDECTOMY, BILATERAL MYRINGOTOMY AND TUBES PROCEDURE: [place] TONSILLECTOMY & ADENOIDECTOMY <AGE 11 OTHER SURGICAL HISTORY 2003 PROCEDURE: [place] LITHOTRIPSY XTRCORP SHOCK WAVE SECTION 2005 PROCEDURE: [...] PM EST Office Visit Orthopedic Surgery - [address] [phone] Jose Dee, M [address] [place] [phone] Health Maintenance Due Date Last Done Comments Colorectal Cancer Screening: Colonoscopy 1964 Diabetes: Annual GFR (Glomerular Filtration Rate) 1964 Diabetes: Annual Foot Exam 1974 Diabetes: Annual Retina Eye Exam 1974 Pneumococcal Vaccine: 50+ Years (1 of 2 - PCV) 1983 Cervical Cancer Screening: Pap Smear 1985 RSV Immunization Adult Patients (1 - Risk 50-74 years 1-dose series) 2014 Breast Cancer Screening 07/10/2020 07/10/2018, 07/09 Depression Screening 05/20/2024 Cholesterol Screening (Lipid Panel) [...] to Health Maintenance Insurance [place] - [place] [facility] [employer] [facility] Care Teams Reset Merchandiser Relationship Specialty Start Date End Date Dany Rubio MD [address] [place] [address] [address] [facility] [place] [address] PCP - General Internal Medicine 10/30/24
--- OUTSIDE RECORDS SUMMARY | 2025-03-16 18:38 | XMS_ITS | Clinical Summary ---
Author Organization [facility] Address [address] [facility] [place] [address] Phone Care Team Providers Care Hogshead Inspector Name Role Phone Dany Rubio MD Primary Care Provider [phone] Allergies Active Allergy Reactions Criticality Noted Date [...] g/dl PVNMA 03/14/2020 us Rtama Conversion LAB [id number] LICITED RESULTS Final Result PVNMA from Last 3 Months or Most Recently Relevant to Health Maintenance Care Teams Hogshead Inspector Relationship Specialty Start Date End Date Dany Rubio MD [facility] [place] [address] [place] PCP - General 05/30/20
== END 2025-03-16 14:20 | disposition home or self-care (01) ==
LOC: HO.US 14:19
PROVIDERS: PCP Internal Medicine; Visit Provider Internal Medicine Medical Oncology
DX: Z13.89 Encounter for screening for other disorder (principal)

== ENCOUNTER 2025-03-18 09:30 | Outpatient (REF) | payer OTHER, SELFPAY ==
[2024-11-05 16:06] VITALS: BP 100/66; BP 104/60; BP 132/58; BMI 31.3
--- NOTE | ~2025-03-18 | US_ITS ---
EXAMINATION: US TRIPLEX UPPER EXTREMITY, RIGHT CLINICAL INFORMATION: Pain COMPARISON: None available. TECHNIQUE: Color-flow triplex imaging with spectral analysis and compression Doppler was performed on the right upper extremity. FINDINGS: The right internal jugular, subclavian, and axillary veins are patent and free of thrombus. The imaged segment of the right brachiocephalic vein is patent. Spectral doppler waveforms are normal. The brachial, basilic, cephalic, radial, and ulnar veins are patent and compressible. US/US venous duplex UE RT IMPRESSION: No evidence of deep venous thrombosis involving the right upper extremity. Electronically signed by: Alejandra Michele MD 03/18/2025 10:18 AM EDT
--- OUTSIDE RECORDS SUMMARY | 2025-03-18 10:58 | XMS_ITS | Clinical Summary ---
Author Organization 175 [facility] Address 175 [place] [address] Phone Care Team Providers Care Nursing Program Chair Name Role Phone Dany Rubio MD Primary Care Provider [phone] Allergies Active Allergy Reactions Criticality Noted Date [...] 02/02/2025 3:00 PM EDT Consult Orthopedic Surgery [facility] [address] [phone] Jose Dee, DPM Diabetic mononeuropathy simplex ([facility] V24, [facility] V28) (Primary Dx); Type 2 diabetes mellitus with hyperglycemia ([facility] V24, [facility] V28); Dermatophytosis of nail; Verruca plantaris; Tinea pedis of both feet; Pain in toe of right foot; Pain in toe of left foot from Last 3 Months Surgical History Surgery Date Site/Laterality Comments TONSILLECTOMY ADENOIDECTOMY, BILATERAL MYRINGOTOMY AND TUBES PROCEDURE: [place] TONSILLECTOMY & ADENOIDECTOMY <AGE 11 OTHER SURGICAL HISTORY 2003 PROCEDURE: [place] LITHOTRIPSY XTRCORP SHOCK WAVE SECTION 2005 PROCEDURE: [...] PM EST Office Visit Orthopedic Surgery - [address] [phone] Jose Dee, M [address] [place] [phone] Health Maintenance Due Date Last Done [...] to Health Maintenance Insurance MEDICAID - [place] [facility] Care Teams Nursing Program Chair Relationship Specialty Start Date End Date Dany Rubio MD [address] [place] [address] [address] [facility] [place] [address] PCP - General Internal Medicine 10/30/24
--- OUTSIDE RECORDS SUMMARY | 2025-03-18 10:58 | XMS_ITS | Clinical Summary ---
Author Organization [facility] Address [address] [facility] [place] [place] [place] [address] Phone Care Team Providers Care Detective Automobile Section Name Role Phone Dany Rubio MD Primary Care Provider [phone] Allergies Active Allergy Reactions Criticality Noted Date [...] g/dl PVNMA 03/14/2020 us Rtama Conversion LAB [id number] LICITED RESULTS Final Result PVNMA from Last 3 Months or Most Recently Relevant to Health Maintenance Care Teams Detective Automobile Section Relationship Specialty Start Date End Date Dany Rubio MD [facility] [place] [address] [place] PCP - General 05/30/20
== END 2025-03-18 09:31 | disposition home or self-care (01) ==
LOC: HO.HMGCX 09:30
PROVIDERS: PCP Internal Medicine; Visit Provider Internal Medicine Medical Oncology
DX: M79.89 Other specified soft tissue disorders (principal)
CPT/HCPCS: 93971

== ENCOUNTER → 2025-03-18 09:34 | Outpatient (BNV) | payer OTHER, SELFPAY ==
[2024-11-05 16:06] VITALS: BP 100/66; BP 104/60; BP 132/58; BMI 31.3
== END ==
PROVIDERS: PCP Internal Medicine; Visit Provider Radiology Diagnostic Radiology
DX: M79.621 Pain in right upper arm (principal)
CPT/HCPCS: 93971

== ENCOUNTER 2025-04-07 13:26 | Outpatient (AMB) | payer OTHER, SELFPAY ==
[2024-11-05 16:06] VITALS: BP 100/66; BP 104/60; BP 132/58; BMI 31.3
--- NOTE | 2025-04-07 13:28 | A.OFFPC_ITS ---
Vital Signs 04/07/25 13:29 Height 5 ft 2 in Weight 164 lb BMI 30.0 BP 130/68 Blood Pressure Location Lt brachial Position Sitting Pulse 73 Pulse Source Pulse Oximeter Pulse Oximetry (%) 98 Oxygen Delivery Method Room Air Intake Visit Reasons: DM Allergies dulaglutide (From TRULICITY) Allergy (Unknown, Verified 04/07/25 13:29) DIARRHEA AND VOMITTING liraglutide (From VICTOZA) Allergy (Unknown, Verified 04/07/25 13:29) DIARRHEA AND VOMITTING, vomiting and diahrrea Tobacco use date assessed: 10/26/24 Dental Screening Dental Screen Date: 10/26/24 HPI HPI Comments History of Present Illness Details History of Present Illness The patient is a 59-year-old female presenting for a follow-up visit for management of multiple chronic conditions including diabetes mellitus, hypothyroidism, hypertension, hypercholesterolemia, coronary artery disease, chronic kidney disease, and a history of breast cancer. Her history includes diabetes mellitus, for which she sees an responder. Her last hemoglobin A1c in April was 9.1%. Her medications include Ozempic with a recent dose change, Jardiance 10 mg, Lantus, and short-acting insulin. She has not experienced weight change. She has a history of coronary artery disease, ischemic cardiomyopathy, hypertension, and hypercholesterolemia. Her LDL was last tested at 97 in October of an unspecified year. Cardiovascular medications include metoprolol 200 mg twice daily, spironolactone, valsartan, aspirin 81 mg, and rosuvastatin. Past medical history is significant for breast cancer in 2023, for which she follows up with medical oncology and is due for a mammogram. She has gastroesophageal reflux disease (GERD) and a history of a tubular adenoma of the colon found on her last colonoscopy in 2016; she is overdue for a follow-up colonoscopy. She has been hesitant to undergo the procedure due to being on blood thinners. She is diagnosed with osteoporosis and is followed by endocrinology, with her last bone density scan in 2020. She takes alendronate. She also has right arm pain, and a prior ultrasound of the arm was performed. The patient has stage 3 chronic kidney disease secondary to diabetic kidney disease, for which she sees nephrology. She also follows with urology for bilateral non-obstructive renal cysts, a 5.5 mm mass on the right side, and a 2.6 cm mass on the left side, with surveillance and surgical options having been discussed. She has hypothyroidism and is on thyroid medication. Health Maintenance The patient was reminded that she is overdue for a colonoscopy and was encouraged to schedule it. She will continue with regular mammograms and follow- up with medical oncology for her history of breast cancer. The patient was also advised to get a flu shot. She will continue to follow up with urology for surveillance of her renal masses. Social History - Diet: The patient reports drinking cof fee but has been advised to avoid soda. - Exercise: The patient is advised to mo ve her arm but to avoid lifting heavy objects, such as her purse, due to arm pain. - Functional Status: The patient uses a calendar to manage and remember her various medical appointments and tests. Results - Labs: Normal blood count in November 2021. Good electrolytes and creatinine of 1.08 in January 2021. Hemoglobin A1c was 9.1% in April. LDL cholesterol was 97 in October. - Imaging and Procedures: Last colonosco py in 2016 revealed a tubular adenoma. Last bone density scan was in 2020. A urology evaluation in January showed bilateral non-obstructive renal cysts, a 5.5 mm right renal mass, and a 2.6 cm left renal mass. A prior ultrasound of the arm was performed. [facility] Medical History (Updated 04/07/25 @ 14:12 by Dany Rubio MD) UTI (urinary tract infection) UTI (urinary tract infection) Dysuria UTI (urinary tract infection) UTI (urinary tract infection) Osteoporosis History of MRSA infection Port-A-Cath in place Hypokalemia Thyroid disease Insulin pump in place Numbness Cough SOB (shortness of breath) On beta suzanne at home CHF (congestive heart failure) History of chemotherapy Neuropathy Myocardial infarction Breast cancer (~09/2023) Preoperative cardiovascular examination Invasive ductal carcinoma of breast Breast cancer, right Breast mass, right Abnormal finding on mammography Abnormal echocardiogram Abnormal stress ECG with treadmill Hearing deficit CKD (chronic kidney disease) stage 3, GFR 30-59 ml/min Low back pain Bacterial conjunctivitis of both eyes Urine incontinence Well woman exam Pyelonephritis Left navicular fracture of foot Vitamin B12 deficiency Thyroid nodule History of Clostridium difficile infection Coronary artery disease Hypercholesterolemia Depression Kidney stone Carpal tunnel syndrome Arthritis 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 Vitamin D deficiency Essential hypertension Type 2 diabetes mellitus with hyperglycemia Surgical History H/O mastectomy (~07/07/24) History of lumpectomy (~05/2024) History of coronary artery stent placement History of biopsy Hx of colonoscopy S/P triple vessel bypass Hx of toe surgery Hx of thyroidectomy History of renal stent Hx of section Hx of myomectomy Hx of tonsillectomy Family History Father DM (diabetes mellitus) Hypertension High cholesterol Spina bifida Kidney stone CAD (coronary artery disease) Mother DM (diabetes mellitus) Hypertension High cholesterol CAD (coronary artery disease) Bipolar 1 disorder Maternal Aunt Lung cancer Maternal Grandfather Lung cancer Other Mental health disorder Social History Household Members: None Household Members Other:: daughter Housing: Apartment Are you a primary health care marketing manager to a significant other at home: No Do you presently have visiting nurse or other home services: No Alcohol intake: never Patient Tobacco Use Status: Never used Tobacco Tobacco use type: Cigarette e-Cigarette/Vaping Use: Never Used Second Hand Smoke Exposure: No service: No Current occupational status: employed Cognitive needs: No Hearing needs: No Vision needs: Yes Female Reproductive History Menstrual Age of Menarche: 11 Questionnaire Thrive Questionnaire Date Thrive assessed: 10/26/24 I am a: Patient What is your living situation today?: I have a steady place to live Within the past 12 months, did the food you bought not last and you didn't have the money to get more?: I choose not to answer this question Within the past 12 months, did you worry whether your food would run out before you got money to buy more?: I choose not to answer this question Do you have trouble paying for medicines?: I choose not to answer this question Do you have trouble getting transportation to medical appointments?: No Do you have trouble paying your heating and electricity bill?: I choose not to answer this question Do you have trouble taking care of your child, family member or friend?: No Do you have trouble with day-to-day activities such as bathing, preparing meals, shopping, managing finances, etc.?: I choose not to answer this question Are you currently unemployed and looking for a job?: No Are you interested in more education?: No Please select the resources that you would like help with: None Currently or been in a relationship where the following occur: No concerns rep orted THRIVE Score: 0 HERB-7 AMB Questionnaire HERB-7 Date HERB - 7 assessed: 10/26/24 Source: Developed by Drs. Suleiman John, Addie Reeves, Tonny Ramos and colleagues, with an educational dmitriy from [employer]. Review of Systems Narrative Review of Systems - Constitutional: Denies weight change. - Gastrointestinal: Reports mild nausea, feeling full, and eructation/gas, which are side effects of Ozempic. - Musculoskeletal: Reports persistent pain in the right arm. Denies current swelling in the arm. Physical exam (Primary Care) Vital Signs: Last Vital Signs Pulse 73 04/07/25 13:29 BP 130/68 04/07/25 13:29 Pulse Ox 98 04/07/25 13:29 Oxygen Delivery Method Room Air 04/07/25 13:29 BMI result Body Mass Index 30.0 Tobacco/Smoking Status: Tobacco use Status Tobacco use date assessed 10/26/24 04/07/25 13:29 Patient Tobacco Use Status Never used Tobacco 04/07/25 13:29 Tobacco use type Cigarette 04/07/25 13:29 e-Cigarette/Vaping Use Never Used 04/07/25 13:29 Thrive Assessment: Date of Thrive Assessment Date Thrive assessed 10/26/24 04/07/25 13:29 Currently or been in a relationship where the following occur: No concerns reported Narrative Physical Exam - Vitals: Blood pressure is noted to be well-controlled. - Respiratory: Lungs were auscultated. Const General: alert; No acute distress Eyes Conjunctivae: conjunctivae normal Resp Auscultation: clear to auscultation bilaterally Cardio Rate: regular rate Rhythm: regular rhythm GI Inspection: Yes normal to inspection Extrem General: Yes normal to inspection and No edema Coding Level of Care Code Est Pt Level 4 (16232) Complex EM visit Add On G2211 Diagnoses Essential hypertension I10 Coronary artery disease involving [place] coronary artery of [place] heart without angina pectoris I25.10 Associated angina: without angina Coronary Disease-Associated Artery/Lesion type: [place] artery [place] vs. transplanted heart: [place] heart Hypercholesterolemia E78.00 Type 2 diabetes mellitus with hyperglycemia, without long-term current use of insulin E11.65 Diabetes mellitus nursing home insulin use: without extermination inspector use Osteoporosis M81.0 Postsurgical hypothyroidism E89.0 Gastroesophageal reflux disease, unspecified whether esophagitis present K21.9 Esophagitis presence: esophagitis presence not specified Tubular adenoma of colon D12.6 CKD (chronic kidney disease) stage 3, GFR 30-59 ml/min N18.30 Kidney stone N20.0 Invasive ductal carcinoma of breast C50.919 Assessment & Plan Assessment & Plan (1) Essential hypertension: Code(s): I10 - Essential (primary) hypertension Category: Medical Plan: Continue with blood pressure medication. Decrease salt intake and exercise on metoprolol 25 mg twice a day valsartan 80 mg once a day (2) Coronary artery disease: Comment: Catheterization stent placement September 2014, CABG 12/2021 Code(s): I25.10 - Atherosclerotic heart disease of [place] coronary artery without angina pectoris Category: Medical Qualifiers: Associated angina: without angina Coronary Disease-Associated Artery/Lesion type: [place] artery [place] vs. transplanted heart: [place] heart Qualified Code(s): I25.10 - Atherosclerotic heart disease of [place] coronary artery without angina pectoris Plan: Control the cholesterol, weight, blood pressure, diabetes continue with aspirin 81 mg once a day (3) Hypercholesterolemia: Code(s): E78.00 - Pure hypercholesterolemia, unspecified Category: Medical Plan: Avoid fried foods, chicken skin, eggs, butter margarine, pastries and meat. Be it pork or beef they have a lot of cholesterol LDL goal of less than 70 and triglyceride of less than 150 October 2024 last blood work still above 70 patient is on Zetia and rosuvastatin. Will have to retest (4) Type 2 diabetes mellitus with hyperglycemia: Code(s): E11.65 - Type 2 diabetes mellitus with hyperglycemia Category: Medical Qualifiers: Diabetes mellitus nursing home insulin use: without extermination inspector use Qualified Code(s): E11.65 - Type 2 diabetes mellitus with hyperglycemia Plan: Decrease the amount of carbohydrate intake, pasta, bread, rice and potatoes are all sugar and that is aside from all the sweet stuff, remember that fruits are good but they are Sweet also. Hemoglobin A1c goal of less than 6.5. Patient is on Ozempic seeing endocrinology and had recent changes in those on Jardiance at 10 mg once a day Lantus and short-acting insulin (5) Osteoporosis: Code(s): M81.0 - Age-related osteoporosis without current pathological fracture Category: Medical Plan: Patient on alendronate being followed up by Endocrinology and bone density 2026 (6) Postsurgical hypothyroidism: Code(s): E89.0 - Postprocedural hypothyroidism Category: Medical Plan: Continue with thyroid medication (7) GERD (gastroesophageal reflux disease): Code(s): K21.9 - Gastro-esophageal reflux disease without esophagitis Category: Medical Qualifiers: Esophagitis presence: esophagitis presence not specified Qualified Code(s): K21.9 - Gastro-esophageal reflux disease without esophagitis Plan: Avoid the foods that causes that usually spicy foods, tomato products, juices, coffee, soda and foods that your sensitive to. After eating do not lie down, allow 3-4 hours before in lie down. And keep the head of bed above 30 degrees to avoid the acid from going up. (8) Tubular adenoma of colon: Code(s): D12.6 - Benign neoplasm of colon, unspecified Category: Medical Plan: Patient is reminded about colonoscopy (9) CKD (chronic kidney disease) stage 3, GFR 30-59 ml/min: Code(s): N18.30 - Chronic kidney disease, stage 3 unspecified Category: Medical Plan: Continue with present medication control the diabetes avoid NSAIDs (10) Kidney stone: Code(s): N20.0 - Calculus of kidney Category: Medical Plan: Patient is being followed up by Urology and options of surgical extraction. (11) Invasive ductal carcinoma of breast: Comment: October 2023 right breast, right breast mastectomy June 2024 Code(s): C50.919 - Malignant neoplasm of unspecified site of unspecified female breast Category: Medical Plan: Continue with regular mammogram continue to follow-up with Hematology-Oncology, on tamoxifen Plan Plan Patient was informed and verbally consented to the use of an ambient scribe for clinic note documentation during this visit. 1. Diabetes Mellitus The patient's diabetes is not well controlled, with a recent HbA1c of 9.1% and ongoing high sugar levels. She is followed by endocrinology and is receiving treatment with Ozempic, Jardiance, Lantus, and short-acting insulin. The dose of Ozempic was recently adjusted and is still at a low level, with potential for further increases. Fasting blood work, including a new HbA1c, will be ordered. The plan is to continue current medications and to follow up in 3 months to review lab results and adjust treatment as needed. 2. Hypercholesterolemia Her last LDL was 97, but the test date is unclear, necessitating a repeat test. Given her history of coronary artery disease, lipid management is crucial. She will continue taking rosuvastatin. A fasting lipid panel will be included in the upcoming blood work. 3. Hypertension And Coronary Artery Disease The patient's blood pressure is well-controlled. She will continue her current regimen of metoprolol 200 mg twice daily, spironolactone, valsartan, and aspirin 81 mg daily. 4. Chronic Kidney Disease The patient has stage 3 chronic kidney disease, likely secondary to diabetes. She is advised to avoid NSAIDs. Continue current medications, including valsartan and Jardiance, for renal protection. 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 5. Osteoporosis The patient is being followed by endocrinology for her osteoporosis. She will continue taking alendronate. Her next bone density scan is scheduled for 2026. 6. Right Arm Pain The patient continues to experience pain in her right arm. She is advised to continue moving the arm but to avoid heavy lifting, and it was suggested that she use a bag with wheels to avoid strain. Discussion Notes I reviewed the patient's extensive medical history and numerous chronic conditions. We discussed the uncontrolled diabetes, noting her high A1c, and the need for better glucose management to prevent further complications. I explained that we would order fasting blood work to re-evaluate her A1c and cholesterol levels. We discussed her Ozempic regimen, including the recent dose adjustment and the possibility of further increases, as well as its side effects of nausea and gas. I strongly emphasized that she is significantly overdue for her colonoscopy and recommended she schedule it soon. I also advised her to obtain a flu shot. We agreed on a follow-up appointment in approximately three months to review the results of her blood work and reassess her management plan. We discussed her right arm pain and I advised her to avoid carrying heavy items, such as her purse, and to consider a bag on wheels instead. Patient Instructions - Get fasting blood work done to check your blood sugar (A1c) and cholesterol. - You are overdue for a colonoscopy. Please call and schedule this important screening test. - Continue taking all your medications as prescribed for diabetes, blood pressure, cholesterol, thyroid, and osteoporosis. - Please get your annual flu shot. - Avoid drinking soda. - To help your arm pain, try not to carry heavy things. A bag with wheels may be helpful. - Continue your regular follow-up visits with your specialists for cancer screening, kidney disease, diabetes, and bone health. - Schedule a follow-up visit here in about 3 months. Orders: Orders Comprehensive Met. Panel Today E11.65 - Type 2 diabetes mellitus with hyperglycemia Hemoglobin A1c Today E11.65 - Type 2 diabetes mellitus with hyperglycemia Lipid Panel Today E11.65 - Type 2 diabetes mellitus with hyperglycemia, E78.00 - Pure hypercholesterolemia, unspecified Ferritin Today E11.65 - Type 2 diabetes mellitus with hyperglycemia Vitamin D 25-OH Total Today E11.65 - Type 2 diabetes mellitus with hyperglycemia Complete Blood Count Auto Diff Today E11.65 - Type 2 diabetes mellitus with hyperglycemia Free T4 (Free Thyroxine) Today E11.65 - Type 2 diabetes mellitus with hyperglycemia Thyroid Stimulating Hormone Today E11.65 - Type 2 diabetes mellitus with hyperglycemia Microalbumin, Random (w Creat) Today E11.65 - Type 2 diabetes mellitus with hyperglycemia Creatinine Urine Today E11.65 - Type 2 diabetes mellitus with hyperglycemia Reticulocyte Count Today E11.65 - Type 2 diabetes mellitus with hyperglycemia Vitamin B12 and Folate Today E11.65 - Type 2 diabetes mellitus with hyperglycemia Magnesium Today E11.65 - Type 2 diabetes mellitus with hyperglycemia
[2025-04-07 13:29] VITALS: BP 130/68; PULSE 73; O2SAT 98
--- OUTSIDE RECORDS SUMMARY | 2025-04-08 01:23 | XMS_ITS | Clinical Summary ---
Author Organization [facility] Address [address] [facility] [place] [address] Phone Care Team Providers Care Network Support Administrator Name Role Phone Dany Rubio MD Primary Care Provider [phone] Allergies Active Allergy Reactions Criticality Noted Date [...] g/dl PVNMA 03/14/2020 us Rtama Conversion LAB [id number] LICITED RESULTS Final Result PVNMA from Last 3 Months or Most Recently Relevant to Health Maintenance Care Teams Network Support Administrator Relationship Specialty Start Date End Date Dany Rubio MD [facility] [address] [place] PCP - General 05/30/20
== END 2025-04-07 14:30 | disposition home or self-care (01) ==
LOC: HO.HMCH 13:27
PROVIDERS: PCP Internal Medicine; Visit Provider Internal Medicine
DX: I10 Essential (primary) hypertension (principal); E11.65 Type 2 diabetes mellitus with hyperglycemia; N18.30 Chronic kidney disease, stage 3 unspecified; C50.919 Malignant neoplasm of unspecified site of unspecified female breast; I25.10 Atherosclerotic heart disease of native coronary artery without angina pectoris; E78.00 Pure hypercholesterolemia, unspecified; M81.0 Age-related osteoporosis without current pathological fracture; E89.0 Postprocedural hypothyroidism; K21.9 Gastro-esophageal reflux disease without esophagitis; D12.6 Benign neoplasm of colon, unspecified; N20.0 Calculus of kidney

== ENCOUNTER → 2025-04-07 13:26 | Outpatient (BNVA) | payer OTHER, SELFPAY ==
[2024-11-05 16:06] VITALS: BP 100/66; BP 104/60; BP 132/58; BMI 31.3
== END ==
PROVIDERS: PCP Internal Medicine; Visit Provider Internal Medicine
DX: E11.22 Type 2 diabetes mellitus with diabetic chronic kidney disease (principal); I12.9 Hypertensive chronic kidney disease with stage 1 through stage 4 chronic kidney disease, or unspecified chronic kidney disease; N18.30 Chronic kidney disease, stage 3 unspecified; E11.65 Type 2 diabetes mellitus with hyperglycemia; I25.10 Atherosclerotic heart disease of native coronary artery without angina pectoris; E78.00 Pure hypercholesterolemia, unspecified; M81.0 Age-related osteoporosis without current pathological fracture; E89.0 Postprocedural hypothyroidism; K21.9 Gastro-esophageal reflux disease without esophagitis; D12.6 Benign neoplasm of colon, unspecified; N20.0 Calculus of kidney; C50.919 Malignant neoplasm of unspecified site of unspecified female breast
CPT/HCPCS: 99212

== ENCOUNTER 2025-04-13 16:10 | Outpatient (REF) | payer OTHER, SELFPAY ==
[2024-11-05 16:06] VITALS: BP 100/66; BP 104/60; BP 132/58; BMI 31.3
--- NOTE | ~2025-04-13 | MM_ITS ---
EXAMINATION: MM SCREENING DIGITAL BREAST TOMOSYNTHESIS, LEFT CLINICAL INFORMATION: Screening. Asymptomatic. Right mastectomy. COMPARISON: Mammography: This study is compared with prior exams dating back to TECHNIQUE: Digital breast tomosynthesis is performed in both the craniocaudal and mediolateral oblique views along with computer-aided detection (CAD). Synthesized 2D images are generated from the tomosynthesis. FINDINGS: There are scattered areas of fibroglandular density. There are no significant masses, abnormal calcifications, or other abnormalities. MM/MM tomosynthesis screening LT IMPRESSION: No mammographic evidence of malignancy. ASSESSMENT: BI-RADS Category 1: Negative RECOMMENDATION: Routine annual mammography screening. 1 year F/U This examination should not preclude the clinical evaluation of a suspicious palpable abnormality. This patient's information was entered into a reminder system with a target due date for their next mammogram. Electronically signed by: Chandni Almanza DO 04/13/2025 05:38 PM MADDI
--- OUTSIDE RECORDS SUMMARY | 2025-04-13 19:26 | XMS_ITS | Clinical Summary ---
Author Organization [address] [facility] Address [address] [place] [address] Phone Care Team Providers Care Mirror Machine Feeder Name Role Phone Dany Rubio MD Primary Care Provider Allergies Active Allergy Reactions Criticality Noted Date Comments Dulaglutide 02/02/2025 Liraglutide Diarrhea,Nausea And Vomiting 2017 Medications ammonium lactate (AmLactin) 12 % lotion Apply topically if needed for dry skin. 400 g 5 02/03/20 26 Active Encounters Date Type Department Care Team Description 02/02/2025 3:00 PM EDT Consult Orthopedic Surgery [facility] [address] [facility] [address] [place] [phone] Jose Dee DPM Diabetic mononeuropathy simplex (CMS/HCC V24, CMS/[facility] V28) (Primary Dx); Type 2 diabetes mellitus with hyperglycemia (CMS/HCC V24, CMS/[facility] V28); Dermatophytosis of nail; Verruca plantaris; Tinea pedis of both feet; Pain in toe of right foot; Pain in toe of left foot from Last 3 Months Surgical History Surgery Date Site/Laterality Comments TONSILLECTOMY ADENOIDECTOMY, BILATERAL MYRINGOTOMY AND TUBES PROCEDURE: MS TONSILLECTOMY & ADENOIDECTOMY <AGE 11 OTHER SURGICAL HISTORY 2003 PROCEDURE: MS LITHOTRIPSY XTRCORP SHOCK WAVE SECTION 2005 PROCEDURE: [...] PM EST Office Visit Orthopedic Surgery - [place] [address] [id number] Jose Dee DPM [address] [phone] Health Maintenance Due Date Last [...] 07/19/2021, 09/14/2020, 08/23/2020 Influenza Vaccine (#1) 2025 , 06/13/2020, 07/21/2019, Additional history exists Hypertension/CHF/CAD Annual [...] to Health Maintenance Insurance MEDICAID - [place] [facility] Care Teams Mirror Machine Feeder Relationship Specialty Start Date End Date Dany Rubio MD [address] [place] [address] [facility] [place] [address] PCP - General Internal Medicine 10/30/24
== END 2025-04-13 16:11 | disposition home or self-care (01) ==
LOC: HO.MAMMO 16:10
PROVIDERS: PCP Internal Medicine; Visit Provider Surgery
DX: Z12.31 Encounter for screening mammogram for malignant neoplasm of breast (principal); Z90.11 Acquired absence of right breast and nipple
CPT/HCPCS: 77063; 77067

== ENCOUNTER → 2025-04-13 16:22 | Outpatient (BNV) | payer OTHER, SELFPAY ==
[2024-11-05 16:06] VITALS: BP 100/66; BP 104/60; BP 132/58; BMI 31.3
== END ==
PROVIDERS: PCP Internal Medicine; Visit Provider Internal Medicine
DX: Z12.31 Encounter for screening mammogram for malignant neoplasm of breast (principal)
CPT/HCPCS: 77063; 77067

== ENCOUNTER 2025-04-22 15:47 | Outpatient (AMB) | payer OTHER, SELFPAY ==
[2024-11-05 16:06] VITALS: BP 100/66; BP 104/60; BP 132/58; BMI 31.3
[2025-04-22 15:50] VITALS: BMI 30.3
--- NOTE | 2025-04-22 15:50 | A.OFFVIS_ITS ---
Vital Signs 04/22/25 15:50 Height 5 ft 2 in Weight 165 lb 7 oz BMI 30.3 Intake Visit Reasons: breast exam~mm Intake Note: This patient presents for breast examination. Pt c/o; reports no complaints at this time. Mammo: 04/13/2025 [employer] Required: No Accompanied by: Self / Same As Patient Allergies dulaglutide (From TRULICITY) Allergy (Unknown, Verified 04/22/25 16:01) DIARRHEA AND VOMITTING liraglutide (From VICTOZA) Allergy (Unknown, Verified 04/22/25 16:01) DIARRHEA AND VOMITTING, vomiting and diahrrea HPI HPI breast exam~mm : Details: She had an invasive ductal carcinoma, ERPR positive, HER2 negative and she had undergone neoadjuvant chemotherapy for this. She eventually had She had undergone simple mastectomy of the right breast because of close margins after lumpectomy for her invasive ductal cancer . This was done on 07/07/2024 . Her final path report showed a [id number] invasive ductal carcinoma She continues to do well. She denies significant complaints. She had a mammogram last 04/13/2025. This was unremarkable and a follow up mammogram if within 1 year was recommended [facility] Medical History (Updated 04/22/25 @ 15:58 by Blas Shine MD) History of breast cancer UTI (urinary tract infection) UTI (urinary tract infection) Dysuria UTI (urinary tract infection) UTI (urinary tract infection) Osteoporosis History of MRSA infection Port-A-Cath in place Hypokalemia Thyroid disease Insulin pump in place Numbness Cough SOB (shortness of breath) On beta suzanne at home CHF (congestive heart failure) History of chemotherapy Neuropathy Myocardial infarction Breast cancer (~09/2023) Preoperative cardiovascular examination Invasive ductal carcinoma of breast Breast cancer, right Breast mass, right Abnormal finding on mammography Abnormal echocardiogram Abnormal stress ECG with treadmill Hearing deficit CKD (chronic kidney disease) stage 3, GFR 30-59 ml/min Low back pain Bacterial conjunctivitis of both eyes Urine incontinence Well woman exam Pyelonephritis Left navicular fracture of foot Vitamin B12 deficiency Thyroid nodule History of Clostridium difficile infection Coronary artery disease Hypercholesterolemia Depression Kidney stone Carpal tunnel syndrome Arthritis 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 Vitamin D deficiency Essential hypertension Type 2 diabetes mellitus with hyperglycemia Surgical History H/O mastectomy (~07/07/24) History of lumpectomy (~05/2024) History of coronary artery stent placement History of biopsy Hx of colonoscopy S/P triple vessel bypass Hx of toe surgery Hx of thyroidectomy History of renal stent Hx of section Hx of myomectomy Hx of tonsillectomy Family History Father DM (diabetes mellitus) Hypertension High cholesterol Spina bifida Kidney stone CAD (coronary artery disease) Mother DM (diabetes mellitus) Hypertension High cholesterol CAD (coronary artery disease) Bipolar 1 disorder Maternal Aunt Lung cancer Maternal Grandfather Lung cancer Other Mental health disorder Social History Household Members: None Household Members Other:: daughter Housing: Apartment Are you a primary animal care attendant to a significant other at home: No Do you presently have visiting nurse or other home services: No Alcohol intake: never Patient Tobacco Use Status: Never used Tobacco Tobacco use type: Cigarette e-Cigarette/Vaping Use: Never Used Second Hand Smoke Exposure: No service: No Current occupational status: employed Cognitive needs: No Hearing needs: No Vision needs: Yes Female Reproductive History Menstrual Age of Menarche: 11 Review of Systems Const Denies chills and Denies fever(s) Card Denies chest pain, Denies dyspnea and Denies dyspnea on exertion Resp Denies cough, Denies dyspnea and Denies dyspnea on exertion GI Denies hematochezia and Denies change in bowel habits Denies hematuria Musc Denies back pain and Denies limited range of motion Neuro Denies focal weakness and Denies convulsions Psych Denies depression and Denies mood swings Physical Exam Const General: comfortable and no acute distress Orientation/consciousness: patient oriented x3 Neck Neck: Yes no lymphadenopathy Chest Other: No palpable breast masses on the left, no axillary lymphadenopathy, no nipple or skin changes Mastectomy site flat with a any palpable masses, no palpable lymph nodes on the right axilla either Resp Auscultation: clear to auscultation bilaterally Cardio Rhythm: regular rhythm GI Palpation (GI): Soft to palpation, nontender and no guarding Neuro General: patient oriented x3 Assessment & Plan Assessment & Plan (1) History of breast cancer: Code(s): Z85.3 - Personal history of malignant neoplasm of breast Category: Medical Plan: She has a history of invasive ductal carcinoma of the left breast and had undergone neoadjuvant chemotherapy for this. She underwent initially a lumpectom with sentinel node biopsy y but the margins were close so she underwent mastectomy earlier this year. She had a mammogram done last April 13, 2025. This this not suggest any mass on the contralateral breast on the left. Physical exam does not reveal any masses. I will see her again in the office in about 6 months. She was reminded to continue to follow up with Dr. Vasquez of Oncology as well. She is currently on tamoxifen therapy. Coding Level of Care Code Complex visit Add On G2211 Diagnoses History of breast cancer Z85.3
--- OUTSIDE RECORDS SUMMARY | 2025-04-22 21:56 | XMS_ITS | Clinical Summary ---
Author Organization [address] [facility] Address [address] [place] [address] Phone Care Team Providers Care Clin Asst Name Role Phone Dany Rubio MD Primary Care Provider [phone] Allergies Active Allergy Reactions Criticality Noted Date Comments Dulaglutide 02/02/2025 Liraglutide Diarrhea,Nausea And Vomiting 2017 Medications ammonium lactate (AmLactin) 12 % lotion Apply topically if needed for dry skin. 400 g 5 02/03/20 26 Active Encounters Date Type Department Care Team Description 02/02/2025 3:00 PM EDT Consult Orthopedic Surgery [facility] [address] [facility] [address] [place] [phone] Jose Dee DPM Diabetic mononeuropathy simplex (CMS/HCC V24, CMS/[facility] V28) (Primary Dx); Type 2 diabetes mellitus with hyperglycemia (CMS/HCC V24, CMS/[facility] V28); Dermatophytosis of nail; Verruca plantaris; Tinea pedis of both feet; Pain in toe of right foot; Pain in toe of left foot from Last 3 Months Surgical History Surgery Date Site/Laterality Comments TONSILLECTOMY ADENOIDECTOMY, BILATERAL MYRINGOTOMY AND TUBES PROCEDURE: [place] TONSILLECTOMY & ADENOIDECTOMY <AGE 11 OTHER SURGICAL HISTORY 2003 PROCEDURE: [place] LITHOTRIPSY XTRCORP SHOCK WAVE SECTION 2005 PROCEDURE: [...] PM EST Office Visit Orthopedic Surgery - [place] [address] [phone] Jose Dee DPM [address] [phone] Health Maintenance Due Date Last [...] to Health Maintenance Insurance MEDICAID - [place] [facility] Care Teams Clin Asst Relationship Specialty Start Date End Date Dany Rubio MD [address] [place] [address] [facility] [place] [address] PCP - General Internal Medicine 10/30/24
== END 2025-04-22 16:09 | disposition home or self-care (01) ==
LOC: HO.HGS 15:48
PROVIDERS: PCP Internal Medicine; Visit Provider Surgery
DX: Z85.3 Personal history of malignant neoplasm of breast (principal)
CPT/HCPCS: 99213

== ENCOUNTER → 2025-04-22 15:47 | Outpatient (BNVA) | payer OTHER, SELFPAY ==
[2024-11-05 16:06] VITALS: BP 100/66; BP 104/60; BP 132/58; BMI 31.3
== END ==
PROVIDERS: PCP Internal Medicine; Visit Provider Surgery
DX: Z48.3 Aftercare following surgery for neoplasm (principal); Z85.3 Personal history of malignant neoplasm of breast; Z79.810 Long term (current) use of selective estrogen receptor modulators (SERMs)
CPT/HCPCS: 99212